=== PATIENT | female | born 1955 | race Caucasian/White ===

== ENCOUNTER → 2020-05-01 16:11 | Outpatient (BNVA) | payer MEDICARE, MEDICAID, SELFPAY | PROVIDERS: PCP Internal Medicine; Visit Provider Family Medicine Adult Medicine | DX: M47.816 Spondylosis without myelopathy or radiculopathy, lumbar region (principal); Z79.891 Long term (current) use of opiate analgesic | CPT/HCPCS: 99213 ==

== ENCOUNTER 2020-06-15 17:54 | Outpatient (REF) | payer MEDICARE, MEDICAID, SELFPAY ==
[2020-06-15 18:35] LABS: Amphetamine Screen Urine Not Detected (Not Detect); Barbiturates, Urine Not Detected (Not Detect); Benzodiazepines Screen Urine Not Detected (Not Detect); Cannabinoid Screen Urine Not Detected (Not Detect); Cocaine Screen Urine Not Detected (Not Detect); Opiate Screen Urine POSITIVE (Not Detect); Phencyclidine Screen Urine Not Detected (Not Detect)
== END 2020-06-15 17:55 | disposition home or self-care (01) ==
LOC: HO.LNP 17:54
PROVIDERS: Visit Provider Internal Medicine
DX: M47.816 Spondylosis without myelopathy or radiculopathy, lumbar region (principal)
CPT/HCPCS: 80307

== ENCOUNTER 2021-01-25 15:38 | Outpatient (REF) | payer MEDICARE, MEDICAID, SELFPAY ==
--- NOTE | ~2021-01-25 | XR_ITS ---
EXAMINATION: XR KNEE, RIGHT CLINICAL INFORMATION: Right knee pain. COMPARISON: Knee radiographs dated 01/23/2020. TECHNIQUE: AP and lateral views of the right knee. FINDINGS: Moderate medial and lateral compartment joint space narrowing. Prominent tricompartmental marginal osteophytes. No osseous erosion. No fracture or dislocation. Npion-uk-oszjsbck joint effusion. Atherosclerotic calcifications. XR/XR knee RT 2V IMPRESSION: Moderate tricompartmental osteoarthritis, unchanged. Zhebk-cl-gpkukajh joint effusion.
== END 2021-01-25 15:39 | disposition home or self-care (01) ==
LOC: HO.XRAY 15:38
PROVIDERS: PCP Internal Medicine; Visit Provider Internal Medicine
DX: M25.561 Pain in right knee (principal)
CPT/HCPCS: 73560

== ENCOUNTER → 2021-02-11 13:34 | Outpatient (BNVA) | payer MEDICARE, MEDICAID, SELFPAY | PROVIDERS: Visit Provider Orthopaedic Surgery | DX: M17.11 Unilateral primary osteoarthritis, right knee (principal) | CPT/HCPCS: 99212 ==

== ENCOUNTER 2021-02-25 14:17 | Outpatient (REF) | payer MEDICARE, MEDICAID, SELFPAY ==
[2021-02-25 14:43] LABS: MANUAL DIFF FLAG NO
[2021-02-25 14:56] LABS: Basophils Percent Auto 0.3 % (0-2); Eosinophils Absolute Auto 0.1 X10*3/uL (0.0-0.4); Eosinophils Percent Auto 0.8 % (0-4); Hematocrit 46.5 % (37-47); Hemoglobin 14.8 g/dl (12.0-16.0); Imm Gran Abs Auto 0.04 X10*3/uL (0.00-0.03); Imm Gran Pct Auto 0.4 % (0.0-0.4); Lymphocytes Absolute Auto 3.1 X10*3/uL (1.2-4.9); Lymphocytes Percent Auto 28.2 % (20-40); Mean Corpuscular HGB Conc 31.8 g/dl (31.0-35.0); Mean Corpuscular Hemoglobin 28.3 pg (27.0-33.0); Mean Corpuscular Volume 88.9 fL (80-98); Mean Platelet Volume 9.3 fL (9.4-12.3); Monocytes Absolute Auto 0.5 X10*3/uL (0.1-1.2); Monocytes Percent Auto 4.2 % (2-11); Neutrophils Absolute Auto 7.2 X10*3/uL (2.0-8.3); Neutrophils Percent Auto 66.1 % (45-73); Platelet Count 409 X10*3/uL (160-400); Red Blood Count 5.23 X10*6/uL (4.20-5.50); Red Cell Distribution Width 12.5 % (11.0-16.0); White Blood Count 10.9 X10*3/uL (4.8-10.8)
[2021-02-25 15:03] LABS: Estimated Average Glucose 186 mg/dL; Hemoglobin A1c % 8.1 %
[2021-02-25 15:16] LABS: Alanine Aminotransferase 14 U/L (0-31); Albumin Level 4.1 g/dL (3.5-5.0); Alkaline Phosphatase 70 U/L (39-117); Anion Gap 17 (12-20); Aspartate Amino Transferase 15 U/L (5-31); Bilirubin Total 0.3 mg/dL (0.0-1.0); Blood Urea Nitrogen 29 mg/dL (9-16); Calcium 9.5 mg/dL (8.4-10.2); Carbon Dioxide 23 mmol/L (22-29); Chloride 103 mmol/L (96-108); Cholesterol 228 mg/dL; Estimated Glomerular Filt Rate 31; Glucose Random 164 mg/dL (60-115); HDL Cholesterol 39 mg/dL; LDL Cholesterol Calculated 153 mg/dl; Potassium 4.2 mmol/L (3.3-5.1); Sodium 139 mmol/L (135-145); Total Protein 7.2 g/dL (6.5-8.0); Triglycerides 180 mg/dL
[2021-02-25 15:48] LABS: Folate 11.4 ng/mL (> or = 4.0); Vitamin B12 279 pg/mL (200-900)
[2021-02-25 18:26] LABS: Creatinine Urine 119.73 mg/dL; Microalbum/Creatinine Ratio Ur 109.4 ug/mg cr
== END 2021-02-25 14:18 | disposition home or self-care (01) ==
LOC: HO.LAB 14:17
PROVIDERS: PCP Internal Medicine; Visit Provider Internal Medicine
DX: I10 Essential (primary) hypertension (principal); E11.65 Type 2 diabetes mellitus with hyperglycemia; I25.10 Atherosclerotic heart disease of native coronary artery without angina pectoris; E78.00 Pure hypercholesterolemia, unspecified
CPT/HCPCS: 36415; 80053; 80061; 82043; 82306; 82607; 82746; 83036; 84439; 84443; 85025

== ENCOUNTER 2021-04-10 15:39 | Outpatient (REF) | payer MEDICARE, MEDICAID, SELFPAY ==
--- NOTE | ~2021-04-10 | US_ITS ---
EXAMINATION: US RETROPERITONEAL LIMITED (RENAL ONLY), BILATERAL CLINICAL INFORMATION: Disorder of kidney and ureter, unspecified. COMPARISON: None TECHNIQUE: Real-time imaging of the kidneys. FINDINGS: RIGHT KIDNEY: 9.6 x 3.4 x 3.8 cm (SAG x AP x TRV). The kidney is normal in size, contour, and echogenicity. Renal cortical thickness is normal. No calculi or focal parenchymal solid lesions. At the upper pole, a 1.0 cm maximal diameter simple cyst is seen. At the lower pole, a 0.9 x 0.7 x 0.8 cm hypoechoic, mildly complex (Bosniak 2F) cyst is seen. This shows no mural nodularity associated color Doppler flow. No hydronephrosis. LEFT KIDNEY: 10.0 x 5.6 x 4.6 cm (SAG x AP x TRV). The kidney is normal in size, contour, and echogenicity. Renal cortical thickness is normal. No calculi or focal parenchymal solid lesions. At the upper pole, a 2.2 cm in maximal diameter anechoic, simple cyst is seen. No hydronephrosis. US/US renal BI IMPRESSION: 1. At the lower pole of the right kidney, a 0.9 cm mildly complex (Bosniak 2F) cyst is seen. As a precaution, a repeat renal ultrasound examination is recommended in 6 months to ensure stability of this finding. 2. There are further simple bilateral renal cysts incidentally noted. 3. No renal calculus or hydronephrosis is seen bilaterally.
== END 2021-04-10 15:40 | disposition home or self-care (01) ==
LOC: HO.US 15:39
PROVIDERS: Visit Provider Internal Medicine
DX: N28.9 Disorder of kidney and ureter, unspecified (principal)
CPT/HCPCS: 76775

== ENCOUNTER 2021-05-24 14:09 | Outpatient (REF) | payer MEDICARE, MEDICAID, SELFPAY ==
--- NOTE | 2021-05-24 15:10 | MHC.AU.HAS ---
Hearing Aid Evaluation Date of Visit: 05/24/21 Historical Information: Description of Hearing: Right: Normal sloping to moderately-severe sensorineural hearing loss Left: Normal sloping to moderate and rising to mild sensorineural hearing loss Summary: Patient was seen at [facility]. She received medical clearance for hearing aids from Dr. Wallis. She has not previously worn amplification. Hearing aid options were discussed. Hearing Aid Prescription: Based on the individual?s shared listening needs, communication environments, dexterity, desire for connectivity, and personal preferences, the following prescription for amplification has been made: Right ear: Money Examiner: ReSound Model: ONE ROSEY 7 Rechargeable Battery Size: Rechargeable Color: Gold Boiler Tube Reamer: 2M Left ear: Money Examiner: ReSound Model: ONE ROSEY 7 Rechargeable Battery Size: Rechargeable Color: Gold Boiler Tube Reamer: 1M Action Taken/Action Needed: Hearing Instrument Fitting to be scheduled when materials arrive Primary Diagnosis: H90.3 Bilateral Sensorineural Hearing Loss Signature: Provider: Argentina Rosario, CCC-A
== END 2021-05-24 14:10 | disposition home or self-care (01) ==
LOC: HO.HAP 14:09
PROVIDERS: Visit Provider Internal Medicine
DX: Z46.1 Encounter for fitting and adjustment of hearing aid (principal); H90.3 Sensorineural hearing loss, bilateral
CPT/HCPCS: 92591

== ENCOUNTER 2021-06-26 09:33 | Outpatient (REF) | payer MEDICARE, MEDICAID, SELFPAY | END 2021-06-26 09:34 | disposition home or self-care (01) | LOC: HO.HAP 09:33 | PROVIDERS: PCP Internal Medicine; Visit Provider Otolaryngology | DX: Z46.1 Encounter for fitting and adjustment of hearing aid (principal); H90.3 Sensorineural hearing loss, bilateral; N28.9 Disorder of kidney and ureter, unspecified; E78.00 Pure hypercholesterolemia, unspecified; E11.65 Type 2 diabetes mellitus with hyperglycemia | CPT/HCPCS: 36415; 80053; 80061; 83036; 85025; V5011; V5020; V5160; V5261 ==

== ENCOUNTER 2021-06-26 11:01 | Outpatient (REF) | payer MEDICARE, MEDICAID, SELFPAY ==
[2021-06-26 11:20] LABS: MANUAL DIFF FLAG NO
[2021-06-26 11:49] LABS: Basophils Percent Auto 0.3 % (0-2); Eosinophils Absolute Auto 0.2 X10*3/uL (0.0-0.4); Eosinophils Percent Auto 2.3 % (0-4); Hematocrit 44.3 % (37.0-47.0); Hemoglobin 14.1 g/dl (12.0-16.0); Imm Gran Abs Auto 0.02 X10*3/uL (0.00-0.03); Imm Gran Pct Auto 0.2 % (0.0-0.4); Lymphocytes Absolute Auto 3.7 X10*3/uL (1.2-4.9); Lymphocytes Percent Auto 42.3 % (20-40); Mean Corpuscular HGB Conc 31.8 g/dl (31.0-35.0); Mean Corpuscular Hemoglobin 29.3 pg (27.0-33.0); Mean Corpuscular Volume 91.9 fL (80.0-98.0); Mean Platelet Volume 9.2 fL (9.4-12.3); Monocytes Absolute Auto 0.6 X10*3/uL (0.1-1.2); Monocytes Percent Auto 6.4 % (2-11); Neutrophils Absolute Auto 4.3 x10*3/uL (2.0-8.3); Neutrophils Percent Auto 48.5 % (45-73); Platelet Count 346 X10*3/uL (160-400); Red Blood Count 4.82 X10*6/uL (4.20-5.50); Red Cell Distribution Width 12.6 % (11.0-16.0); White Blood Count 8.8 X10*3/uL (4.8-10.8)
[2021-06-26 12:21] LABS: Alanine Aminotransferase 12 U/L (0-31); Albumin Level 4.1 g/dL (3.5-5.0); Alkaline Phosphatase 66 U/L (39-117); Anion Gap 12 (12-20); Aspartate Amino Transferase 15 U/L (5-31); Bilirubin Total 0.3 mg/dL (0.0-1.0); Blood Urea Nitrogen 20 mg/dL (9-16); Calcium 9.7 mg/dL (8.4-10.2); Carbon Dioxide 27 mmol/L (22-29); Chloride 102 mmol/L (96-108); Cholesterol 231 mg/dL; Estimated Glomerular Filt Rate 38; Glucose Random 180 mg/dL (60-115); HDL Cholesterol 38 mg/dL; LDL Cholesterol Calculated 136 mg/dl; Potassium 4.5 mmol/L (3.3-5.1); Sodium 136 mmol/L (135-145); Total Protein 6.9 g/dL (6.5-8.0); Triglycerides 289 mg/dL
[2021-06-26 14:07] LABS: Estimated Average Glucose 174 mg/dL; Hemoglobin A1c % 7.7 %
== END 2021-06-26 11:02 | disposition home or self-care (01) ==
LOC: HO.LAB 11:01
PROVIDERS: PCP Internal Medicine; Visit Provider Internal Medicine
DX: N28.9 Disorder of kidney and ureter, unspecified (principal); E11.65 Type 2 diabetes mellitus with hyperglycemia; E78.00 Pure hypercholesterolemia, unspecified
CPT/HCPCS: 36415; 80053; 80061; 83036; 85025

== ENCOUNTER 2021-07-19 15:10 | Outpatient (REF) | payer MEDICARE, MEDICAID, SELFPAY ==
--- NOTE | ~2021-07-19 | MM_ITS ---
EXAMINATION: MM SCREENING DIGITAL BREAST TOMOSYNTHESIS, BILATERAL CLINICAL INFORMATION: Screening. Asymptomatic. The lifetime risk of breast cancer based on the Tyrer-Cuzick Model is 4%. COMPARISON: Mammography: 03/12/2020, 10/11/2018; outside mammography 12/11/2015 ([facility]) TECHNIQUE: Digital breast tomosynthesis is performed in both the craniocaudal and mediolateral oblique views along with computer-aided detection (CAD). Synthesized 2D images are generated from the tomosynthesis. FINDINGS: There are scattered areas of fibroglandular density (ACR BI-RADS breast composition Category b). There are no significant masses, abnormal calcifications, or other abnormalities. Parenchymal pattern is similar to prior studies. There is no developing density or architectural abnormality. The axilla are unremarkable. MM/MM tomosynthesis screening BI IMPRESSION: No mammographic evidence of malignancy. ASSESSMENT: BI-RADS 1: Negative RECOMMENDATION: Routine annual mammography screening. This patient's information was entered into a reminder system with a target due date for their next mammogram.
== END 2021-07-19 15:11 | disposition home or self-care (01) ==
LOC: HO.MAMMO 15:10
PROVIDERS: PCP Internal Medicine; Visit Provider Internal Medicine
DX: Z12.31 Encounter for screening mammogram for malignant neoplasm of breast (principal)
CPT/HCPCS: 77063; 77067

== ENCOUNTER 2021-08-12 12:28 | Outpatient (REF) | payer MEDICARE, MEDICAID, SELFPAY | END 2021-08-12 12:29 | disposition home or self-care (01) | LOC: HO.HOSX 12:28 | PROVIDERS: Visit Provider Orthopaedic Surgery | DX: Z13.89 Encounter for screening for other disorder (principal) ==

== ENCOUNTER 2021-12-17 16:42 | Outpatient (REF) | payer OTHER, MEDICAID, SELFPAY ==
--- NOTE | ~2021-12-17 | US_ITS ---
EXAMINATION: US RETROPERITONEAL LIMITED (RENAL ONLY) CLINICAL INFORMATION: Cyst of kidney, acquired. COMPARISON: Renal ultrasound 04/10/2021 TECHNIQUE: Real-time imaging of the kidneys. FINDINGS: RIGHT KIDNEY: 11.0 x 3.7 x 3.8 cm (SAG x AP x TRV). The kidney is normal in size, contour, and echogenicity. Renal cortical thickness is normal. There are 2 cysts measuring 7 x 9 mm in the upper pole and 9 mm lower pole. The lower pole cyst has internal echoes that are difficult to clear and may represent a complex cyst. This is similar to previous exam. No renal stone or mass. No hydronephrosis. LEFT KIDNEY: 10.4 x 4.1 x 4.4 cm (SAG x AP x TRV). The kidney is normal in size, contour, and echogenicity. Renal cortical thickness is normal. There is a 2.4 x 2.7 x 2.2 cm cyst in the upper pole. No renal stone or mass. No hydronephrosis. US/US renal BI IMPRESSION: Stable small bilateral renal cysts from March 2021 exam..
== END 2021-12-17 16:43 | disposition home or self-care (01) ==
LOC: HO.US 16:42
PROVIDERS: Visit Provider Internal Medicine
DX: N28.1 Cyst of kidney, acquired (principal)
CPT/HCPCS: 76775

== ENCOUNTER → 2022-01-30 11:26 | Outpatient (BNVA) | payer OTHER, MEDICAID, SELFPAY | PROVIDERS: PCP Internal Medicine; Visit Provider Dietitian, Registered | DX: E11.65 Type 2 diabetes mellitus with hyperglycemia (principal) | CPT/HCPCS: 97803 ==

== ENCOUNTER 2022-02-01 16:39 | Emergency (ER) | payer OTHER, MEDICAID, SELFPAY ==
[2022-02-01 17:27] VITALS: BP 128/74; BP 150/80; PULSE 100; PULSE 90; RESP 16; TEMP 35.2; O2SAT 95; BMI 20.6
== END 2022-02-01 20:10 | disposition left against medical advice (07) ==
PROVIDERS: Emergency Provider Emergency Medicine
DX: S09.90XA Unspecified injury of head, initial encounter (principal); W01.0XXA Fall on same level from slipping, tripping and stumbling without subsequent striking against object, initial encounter; Y93.89 Activity, other specified; Y92.019 Unspecified place in single-family (private) house as the place of occurrence of the external cause; Y99.9 Unspecified external cause status
CPT/HCPCS: 99281

== ENCOUNTER → 2022-02-04 13:23 | Outpatient (BNVA) | payer OTHER, MEDICAID, SELFPAY | PROVIDERS: PCP Internal Medicine; Visit Provider Dietitian, Registered | DX: E11.65 Type 2 diabetes mellitus with hyperglycemia (principal) | CPT/HCPCS: 97803 ==

== ENCOUNTER 2022-02-19 15:43 | Outpatient (REF) | payer SELFPAY ==
--- NOTE | 2022-02-19 17:01 | MHC.AU.HFU ---
Hearing Instrument Follow-Up- Binaural Date of Visit: 02/19/22 Right Ear: Traffic Line Painter: ReSound Model: ONE ROSEY 7 ROSEY-R Serial Number: [id number] Repair Warranty: 07/10/2024 Loss and Damage Warranty: 07/10/2024: Battery Size: Rechargeable Color: Gold Photolithographer: 2M Type of Dome: Small open Type of Wax Guard: Resound triangle wax guards Dispensed By: [facility] Date of Fittin06/26/2021 Left Ear: Traffic Line Painter: ReSound Model: ONE ROSEY 7 ROSEY-R Serial Number: [id number] Repair Warranty: 07/10/2024 Loss and Damage Warranty: 07/10/2024 Battery Size: Rechargeable Color: Gold Photolithographer: 2M Type of Dome: Small open Type of Wax Guard: Resound triangle wax guards Dispensed By: [facility] Date of Fittin06/26/2021 Follow-Up Summary: Lost aids as they constantly fell out of ears. Placed L&D order with Linda at [facility] Ref# [id number]. Took impressions for encased canal lock receivers. Recommendations: Schedule 45 minute appointment with Lin as patient has reduced cognition Diagnosis Code(s): Primary Diagnosis: H61.22 Impacted Cerumen, Left Ear Secondary Diagnosis: SNHL Signature: Provider: Cindy Amaral, [facility]
== END 2022-02-19 15:44 | disposition home or self-care (01) ==
LOC: HO.HAP 15:43
PROVIDERS: Visit Provider Internal Medicine
DX: Z46.1 Encounter for fitting and adjustment of hearing aid (principal); H61.22 Impacted cerumen, left ear
CPT/HCPCS: 92700

== ENCOUNTER → 2022-02-26 13:58 | Outpatient (REF) | payer OTHER, MEDICAID, SELFPAY ==
--- NOTE | 2022-02-26 14:03 | CA_ITS ---
Transthoracic Echocardiogram Patient (Last, First, Middle): Lena Bill H Gender: Female Date of : 1955 Age: 66 Procedure Date: 02/26/2022 Procedure Type: Transthoracic Echocardiogram Location: OP Height: 167.64 cm Weight: 59.42 kg BSA: 1.67 m2 Heart Rate: 81 bpm BP: 120 / 70 mmHg Compensation Analyst: SB Referring MD: Vero Medellin MD Safety Glass Installer: Scott Cooper MD Symptoms: I20.8 STABLE ANGINA Study Quality: Adequate apical images/no parasternal window ECG Rhythm: Sinus Conclusions: - 1. Low normal LV systolic function with impaired relaxation filling pattern next 2. Mildly dilated left atrium 3. Severely thickened posterior mitral leaflet with immobility, may suggest prior repair with possible mild mitral stenosis 4. No gross pericardial effusion 5. Technically limited study as there were very poor parasternal windows Findings Left Ventricle Normal left ventricular cavity size. There is normal left ventricular wall thickness. The left ventricular systolic function is low normal. The visually estimated ejection fraction is between 50-55%. Spectral Doppler is indicative of an impaired relaxation filling pattern. Right Ventricle Normal right ventricular cavity size and systolic function. Atria The left atrium is mildly dilated. Interatrial shunt cannot be excluded. The right atrium is normal in size. Aortic Valve The aortic valve was not well visualized. There is no aortic valve stenosis. There is no aortic valve regurgitation. Mitral Valve There is mild anterior and severe posterior mitral leaflet thickening. The posterior mitral leaflet is immobile. the posterior mitral leaflet is heavily thickened and a mobile and could represent prior repair, although there is no mention on the prior history about the same. Mild mitral stenosis cannot be entirely ruled out Pulmonic Valve The pulmonic valve was not well visualized. Tricuspid Valve Likely normal tricuspid valve structure and function. Tricuspid regurgitation envelope is inadequate for calculation of right ventricular systolic pressure. Great Vessels The aorta was not well visualized. The pulmonary artery was not well visualized. Venous The inferior vena cava is normal in size and collapses greater than 50% with inspiration. Pericardium/Pleural There is no evidence of pericardial effusion. Prior Study Comparison No prior study available for comparison. Measurements 2D Linear Measurements LVIDd: 3.67 3.9-5.3/4.2-5.9 cm LVIDd Index: 2.20 2.4-3.2/2.2-3.1 cm/m2 LVIDs: 2.65 2.0-3.6 cm LVOT Diam: 1.70 3.0+(-)1.3 cm 2D Systolic Function EF 4C: 53.40 >55% EF 2C: 49.00 >55% EF BiP: 53.20 >55% Mitral Valve MV VTI: 0.35 MV Pk Yadiel: 1.67 MV Mn Yadiel: 1.00 MV Pk Grad: 11.00 MV Mn Grad: 5.00 MV Pk E: 1.10 MV PK A: 1.48 MV Decel Time: 267.00 E/A: 0.70 E'Lateral: 4.68 E'Medial: 4.24 E/E' Med: 25.90 E/E' Lat: 23.50 PHT: 78.00 MVA PHT: 2.82 MVA Continuity: 1.07 Decel [place]: 4.10 Aortic Valve AoV Pk Yadiel: 1.41 AoV Mn Yadiel: 1.00 AoV VTI: 0.26 AoV Pk Grad: 8.00 Aov Mn Grad: 5.00 ROB Cont.VTI: 1.46 LVOT LVOT Pk Yadiel: 0.98 LVOT Mn Yadiel: 0.68 LVOT VTI: 0.17 LVOT Pk Grad: 4.00 LVOT Mn Grad: 2.00 LVOT Diam: 1.70 LVOT Area: 2.27 Diastolic Function MV Pk E: 1.10 MV Pk A: 1.48 E/A: 0.70 E'Medial: 4.24 E/E' Med: 25.90 E' Laterial: 4.68 E/E' Lat: 23.50 Right Ventricle TAPSE (mm): 18.40 TVS' Yadiel: 11.30 Tricuspid Valve RA Press: 3.00 Great Vessels Aorta Sinus of Valsalva: 3.10 2.0-3.5 cm Updated in Other Vendor System with Status of Final Scott Cooper MD electronically signed on 02/26/2022 3:19:43 PM with status of Final
== END ==
LOC: HO.CARD 13:58
PROVIDERS: Visit Provider Internal Medicine Cardiovascular Disease
DX: I20.8 Other forms of angina pectoris (principal)
CPT/HCPCS: 93306

== ENCOUNTER 2022-04-17 10:33 | Outpatient (REF) | payer SELFPAY ==
--- NOTE | 2022-04-18 07:30 | MHC.AU.HFU ---
Hearing Instrument Follow-Up- Binaural Date of Visit: 04/17/22 Right Ear: Service And Repair Supervisor: ReSound Model: ONE ROSEY 7 ROSEY-R Serial Number: [id number] replaced with [id number] Repair Warranty: 07/10/2024 Loss and Damage Warranty: Used 02/2022 Battery Size: Rechargeable Color: Gold Bulk Driver: 2M Type of Dome: Small open Type of Wax Guard: Resound triangle wax guards Dispensed By: [facility] Date of Fittin06/26/2021 Left Ear: Service And Repair Supervisor: ReSound Model: ONE ROSEY 7 ROSEY-R Serial Number: [id number] replaced with [id number] Repair Warranty: 07/10/2024 Loss and Damage Warranty: Used 02/2022 Battery Size: Rechargeable Color: Gold Bulk Driver: 2M Type of Dome: Small open Type of Wax Guard: Resound triangle wax guards Dispensed By: [facility] Date of Fittin06/26/2021 Follow-Up Summary: Lena is accompanied by son. Fitting of the L&D aids (no credit collections manager was sent with aids) with new encased canal lock earmolds was attempted today. Experienced difficulty initially with updating software. Sean from [facility] helped (although not able to come on remotely due to [facility] either firewall or low internet connection). Had connection problems with the aids following download of updated software. Once connections made, the left aid would not complete calibration. Tried DEMO aids and able to complete all actions. Transferred to [facility] in Customer Care to file a complaint case. All paperwork is in the chart. Returning both L&D aids for credit with encased molds. Remaking the encased molds as the secondary set up man length is short (changing to size 2 MP for both aids). Recommendations:Patient will be contacted when materials have arrived. Recommendations (Other): Will be receiving 2 new aids, 2 encased canal lock earmolds with #2 MP receivers, 1 credit collections manager. PLEASE GIVE ALL MATERIALS TO [facility] WHEN RECEIVED TO CONFIRM AND PROGRAM. Signature:Provider: Cindy Amaral, CCC-A
== END 2022-04-17 10:34 | disposition home or self-care (01) ==
LOC: HO.HAP 10:33
PROVIDERS: Visit Provider Internal Medicine
DX: Z13.89 Encounter for screening for other disorder (principal)

== ENCOUNTER 2022-05-29 10:29 | Outpatient (REF) | payer OTHER, MEDICAID, SELFPAY ==
--- NOTE | 2022-05-29 15:07 | MHC.AU.HFU ---
Hearing Instrument Follow-Up- Binaural Date of Visit: 05/29/22 Right Ear: Buttermaker Helper: ReSound One 7 ROSEY-R Color: Gold (Original #[id number] fit 06/26/21) replaced with #[id number] 05/29/22) Repair Warranty: 07/10/2024 Loss and Damage Warranty: Used 02/2022 Service Plan: Battery Size: Rechargeable Color: Gold Senior Linux Systems Engineer: 2M Type of Mold: Encased Micro Mold #[id number] remake/repair warranty 09/18/2022 Type of Wax Guard: Resound triangle wax guards Dispensed By: [facility] Date of Fittin06/26/2021 Left Ear: Buttermaker Helper: ReSound One 7 ROSEY-R Color: Gold (Original #[id number] fit 06/26/21) replaced 05/29/2022 with #[id number] Repair Warranty: 07/10/2024 Loss and Damage Warranty: Used 02/2022 Battery Size: Rechargeable Color: Gold Senior Linux Systems Engineer: 2M Type of Mold: Encased Micro Mold #[id number] remake/repair warranty 09/18/2022 Type of Wax Guard: Resound triangle wax guards Dispensed By: [facility] Date of Fittin06/26/2021 Follow-Up Summary: Patient is accompanied by her son today to fit the replacement L&D aids and manager cleaning and the new encased micro molds. Patient has not used hearing aids for at least the past 6-7 months. Ran calibration and performed Real Ear for a new fit at 100% target as previous settings for aids were with domes. Made adjustments to better meet target. Aids all automatic per patient request. Practiced insertion and how to place in manager cleaning several times while in office. Patient gets easily frustrated and wants to move fast, but she can easily insert if she takes her time and takes the aids out of the manager cleaning holding the aid where it meets the director news. Son also practiced insertion. Downloaded ReSound Polo and paired aids to cell phone. Reviewed polo with son. Recommendations: Patient did not make a follow-up appointment today. Advised her to schedule appointment if any concerns. Diagnosis Code(s):Primary Diagnosis: H90.3 Bilateral Sensorineural Hearing Loss Services Performed: Earmold (Quantity): 2 STOLL Non-Quantity Charges: HAFOC-REFIT [place] ECON: Real Ear/Functional testing Signature:Provider: Angel Amaral, CCC-A
== END 2022-05-29 10:30 | disposition home or self-care (01) ==
LOC: HO.HAP 10:29
PROVIDERS: Visit Provider Internal Medicine
DX: Z46.1 Encounter for fitting and adjustment of hearing aid (principal); H90.3 Sensorineural hearing loss, bilateral
CPT/HCPCS: V5011; V5020; V5264

== ENCOUNTER 2022-07-30 15:29 | Outpatient (REF) | payer MEDICARE, MEDICAID, SELFPAY ==
--- NOTE | ~2022-07-30 | MM_ITS ---
EXAMINATION: MM SCREENING DIGITAL BREAST TOMOSYNTHESIS, BILATERAL CLINICAL INFORMATION: Screening. Asymptomatic. The lifetime risk of breast cancer based on the Tyrer-Cuzick Model is 4.0%. COMPARISON: Mammography: July 19, 2021 and studies dating back to December 11, 2015 TECHNIQUE: Digital breast tomosynthesis is performed in both the craniocaudal and mediolateral oblique views along with computer-aided detection (CAD). Synthesized 2D images are generated from the tomosynthesis. FINDINGS: The breasts are heterogeneously dense, which may obscure small masses (ACR BI-RADS breast composition Category c). There are no significant masses, abnormal calcifications, or other abnormalities. MM/MM tomosynthesis screening BI IMPRESSION: No significant changes from prior exam. ASSESSMENT: BI-RADS 1: Negative RECOMMENDATION: Routine annual mammography screening. This patient's information was entered into a reminder system with a target due date for their next mammogram.
== END 2022-07-30 15:30 | disposition home or self-care (01) ==
LOC: HO.MAMMO 15:29
PROVIDERS: Visit Provider Internal Medicine
DX: Z12.31 Encounter for screening mammogram for malignant neoplasm of breast (principal)
CPT/HCPCS: 77063; 77067

== ENCOUNTER 2022-11-25 09:25 | Outpatient (REF) | payer MEDICARE, MEDICAID, SELFPAY ==
[2022-11-25 11:10] LABS: MANUAL DIFF FLAG NO
[2022-11-25 11:37] LABS: Basophils Absolute Auto 0.1 X10*3/uL (0.0-0.2); Basophils Percent Auto 0.6 % (0-2); Eosinophils Absolute Auto 0.1 X10*3/uL (0.0-0.4); Eosinophils Percent Auto 0.8 % (0-4); Hematocrit 45.6 % (37.0-47.0); Hemoglobin 14.7 g/dl (12.0-16.0); Imm Gran Abs Auto 0.02 X10*3/uL (0.00-0.03); Imm Gran Pct Auto 0.2 % (0.0-0.4); Lymphocytes Absolute Auto 2.8 X10*3/uL (1.2-4.9); Lymphocytes Percent Auto 29.6 % (20-40); Mean Corpuscular HGB Conc 32.2 g/dl (31.0-35.0); Mean Corpuscular Hemoglobin 29.3 pg (27.0-33.0); Mean Corpuscular Volume 90.8 fL (80.0-98.0); Mean Platelet Volume 10.2 fL (9.4-12.3); Monocytes Absolute Auto 0.4 X10*3/uL (0.1-1.2); Monocytes Percent Auto 3.8 % (2-11); Neutrophils Absolute Auto 6.2 x10*3/uL (2.0-8.3); Platelet Count 320 X10*3/uL (160-400); Red Blood Count 5.02 X10*6/uL (4.20-5.50); Red Cell Distribution Width 12.1 % (11.0-16.0); White Blood Count 9.6 X10*3/uL (4.8-10.8)
[2022-11-25 12:14] LABS: Alanine Aminotransferase 11 U/L (0-31); Albumin Level 4.1 g/dL (3.5-5.0); Alkaline Phosphatase 69 U/L (39-117); Anion Gap 13 (12-20); Aspartate Amino Transferase 16 U/L (5-31); Bilirubin Total 0.6 mg/dL (0.0-1.0); Blood Urea Nitrogen 16 mg/dL (9-16); Calcium 9.6 mg/dL (8.4-10.2); Carbon Dioxide 29 mmol/L (22-29); Chloride 101 mmol/L (96-108); Cholesterol 202 mg/dL; Estimated Glomerular Filt Rate 40; Glucose Random 165 mg/dL (60-115); HDL Cholesterol 38 mg/dL; LDL Cholesterol Calculated 130 mg/dl; Potassium 4.1 mmol/L (3.3-5.1); Sodium 139 mmol/L (135-145); Total Protein 6.9 g/dL (6.5-8.0); Triglycerides 173 mg/dL
[2022-11-25 12:22] LABS: Folate > 20.0 ng/mL (> or = 4.0); Vitamin B12 289 pg/mL (200-900)
== END 2022-11-25 09:26 | disposition home or self-care (01) ==
LOC: HO.HMGCLDS 09:25
PROVIDERS: PCP Internal Medicine; Visit Provider Internal Medicine
DX: E11.65 Type 2 diabetes mellitus with hyperglycemia (principal); E78.00 Pure hypercholesterolemia, unspecified
CPT/HCPCS: 36415; 80053; 80061; 82607; 82746; 84439; 84443; 85025

== ENCOUNTER 2023-01-22 16:30 | Outpatient (AMB) | payer MEDICARE, MEDICAID, SELFPAY ==
--- NOTE | 2023-01-22 16:57 | MHC.PC.OV ---
Intake Visit Reasons: med review Allergies No Known Allergies Allergy (Verified 01/22/23 16:57) Tobacco use date assessed: 11/21/22 Fall risk assessment: No Falls in past year Last assessed Fall Risk: 01/22/23 Dental Screening Did you have a dental visit in the last 12 months?: No Did you have a dental problem in the last 6 months where you did not have access to dental care?: No Was dental information given to patient?: Patient has dentist HPI med review HPI Details 67-year-old female smoker with diabetes mellitus hypertension coronary artery disease hypercholesterolemia anxiety disorder with a history of lumbar wedge compression fracture on narcotic pain medication. Patient seen on a monthly basis for refill on the narcotic pain medication this time was late and so had to go with Telehealth. Patient follows up with Nephrology having diabetic nephropathy(from history has peripheral vascular disease with iliac artery stents and right 1st toe amputation, carotid disease with a history of carotid endarterectomy left, her last cardiac cath August 2019 reveals coronary artery disease concern about renal artery stenosis patient was advised workup from nephrology point of view. Had a long discussion with the patient on the need to do changes discussion about diabetes mellitus coronary artery disease tobacco abuse peripheral vascular disease on the patient to need to get this under control and stopping smoking. [facility] Medical History (Updated 07/25/22 @ 17:55 by Diandra Grady MD) Anxiety and depression Attention deficit disorder Carotid stenosis Coronary artery disease Diabetic nephropathy Hypercholesterolemia Hypertension Lumbar spondylosis Osteoarthritis Pulmonary nodule Right radial fracture Type 2 diabetes mellitus with hyperglycemia Surgical History Amputation toe H/O endarterectomy Family History Father Stroke Mother Pancreatic cancer Son Sleep apnea Social History Housing: House Alcohol intake: current Alcohol intake frequency: holidays/special occasions only Alcohol type: wine Patient Tobacco Use Status: Former Tobacco user Tobacco use type: Cigarette Cigarettes Per Day: 5 e-Cigarette/Vaping Use: Never Used Second Hand Smoke Exposure: Yes service: No Current occupational status: unemployed Cognitive needs: No Hearing needs: No Vision needs: Yes Questionnaire PHQ-9 Over the last 2 weeks, how often have you been bothered by any of the following problems? 1. Little interest or pleasure in doing things: more than half the days 2. Feeling down, depressed, or hopeless: not at all 3. Trouble falling or staying asleep, or sleeping too much: more than half the days 4. Feeling tired or having little energy: more than half the days 5. Poor appetite or overeating: more than half the days (poor appetite) 6. Feeling bad about yourself - or that you are a failure or have let yourself or your family down: more than half the days 7. Trouble concentrating on things, such as reading the newspaper or watching television: not at all 8. Moving or speaking so slowly that other people could have noticed. Or the opposite - being so fidgety or restless that you have been moving around a lot more than usual: not at all 9. Thoughts that you would be better off or of hurting yourself in some way: not at all Total score: 10 Depression Screening Interpretation: Positive Source: Developed by Drs. George Andrew, Marion Vasques, Milad Goncalves and colleagues, with an educational jaylen from [employer]. Thrive Questionnaire Date Thrive assessed: 07/22/22 AUDIT C Alcohol Use Questionnaire (AUDIT-C) 1. How often do you have a drink containing alcohol?: Monthly or less 2. How many drinks containing alcohol do you have on a typical day when you are drinking?: 1 or 2 3. How often do you have six or more drinks on one occasion?: Never Total Score: 1 PATRIC-7 AMB Questionnaire PATRIC-7 Date PATRIC - 7 assessed: 07/22/22 Source: Developed by Drs. George Andrew, Milad Prasad and colleagues, with an educational jaylen from [employer]. Physical exam (Primary Care) Tobacco/Smoking Status: Tobacco use Status Tobacco use date assessed 11/21/22 01/22/23 16:59 Patient Tobacco Use Status Former Tobacco user 01/22/23 16:59 Tobacco use type Cigarette 01/22/23 16:59 e-Cigarette/Vaping Use Never Used 01/22/23 16:59 PHQ-9: PHQ-9 Score PHQ-9: Total score 01/22/23 16:59 Depression Screening Interpretation: Positive Thrive Assessment: Date of Thrive Assessment Date Thrive assessed 07/22/22 01/22/23 16:59 Telehealth Telehealth Location of provider rendering services: practice address Location of patient: address on file Patient Identification confirmed using: Name, : Yes Telehealth method: voice only (Android//[phone]) Patient verbally consented to treatment: Yes Patient verbally consented to billing insurance company: Yes Patient informed of any privacy concerns related to visit: Yes Minutes spent on Phone/Video with Pt.: 25 Assessment and Plan Assessment & Plan (1) Wedge compression fracture of lumbar vertebra: Comment: May 2022 MR L1 and L2 Code(s): S32.000A - Wedge compression fracture of unspecified lumbar vertebra, initial encounter for closed fracture Plan: Narcotic pain meds: Is being prescribed with the understanding that these medications are potentially addictive and should be used only when absolutely necessary and must always be secured. Any remaining pills should be safely disposed off appropriately. Patient is advised that narcotics can impaired judgment and one should not drive or operate heavy machinery while taking these medications. Never share these medications with anybody and do not leave them unattended. They will not be replaced under any circumstances. (2) Tobacco abuse: Code(s): Z72.0 - Tobacco use Plan: Strongly advised to stop! (3) Type 2 diabetes mellitus with hyperglycemia: Code(s): E11.65 - Type 2 diabetes mellitus with hyperglycemia Qualifiers: Diabetes mellitus fpc insulin use: without termination clerk use Qualified Code(s): E11.65 - Type 2 diabetes mellitus with hyperglycemia Plan: Decrease the amount of carbohydrate intake, pasta, bread, rice and potatoes are all sugar and that is aside from all the sweet stuff, remember that fruits are good but they are Sweet also. Hemoglobin A1c goal of less than 7.0 (4) Hypertension: Code(s): I10 - Essential (primary) hypertension Qualifiers: Hypertension type: essential hypertension Qualified Code(s): I10 - Essential (primary) hypertension Plan: Continue with blood pressure medication. Decrease salt intake and exercise (5) Coronary artery disease: Code(s): I25.10 - Atherosclerotic heart disease of [place] coronary artery without angina pectoris Qualifiers: Coronary Disease-Associated Artery/Lesion type: [place] artery [place] vs. transplanted heart: [place] heart Associated angina: without angina Qualified Code(s): I25.10 - Atherosclerotic heart disease of [place] coronary artery without angina pectoris Plan: Control the cholesterol, weight, blood pressure, diabetes (6) Hypercholesterolemia: Code(s): E78.00 - Pure hypercholesterolemia, unspecified Plan: Avoid fried foods, chicken skin, eggs, butter margarine, pastries and meat. Be it pork or beef they have a lot of cholesterol LDL goal of less than 70 and triglyceride of less than 150 reminding also about blood work that needs to be done to see if the cholesterol has come down Coding Level of Care Code Tele Est Pt Level 4 (09867) Diagnoses Wedge compression fracture of lumbar vertebra S32.000A Tobacco abuse Z72.0 Type 2 diabetes mellitus with hyperglycemia E11.65 Diabetes mellitus fpc insulin use: without fpc use Hypertension I10 Hypertension type: essential hypertension Coronary artery disease I25.10 Coronary Disease-Associated Artery/Lesion type: [place] artery [place] vs. transplanted heart: [place] heart Associated angina: without angina Hypercholesterolemia E78.00
== END 2023-01-22 17:59 | disposition home or self-care (01) ==
LOC: HO.HMGH 16:30
PROVIDERS: PCP Internal Medicine; Visit Provider Internal Medicine
DX: S32.000A Wedge compression fracture of unspecified lumbar vertebra, initial encounter for closed fracture (principal); Z72.0 Tobacco use; E11.65 Type 2 diabetes mellitus with hyperglycemia; I10 Essential (primary) hypertension; I25.10 Atherosclerotic heart disease of native coronary artery without angina pectoris; E78.00 Pure hypercholesterolemia, unspecified
CPT/HCPCS: 99443

== ENCOUNTER 2023-02-23 17:08 | Outpatient (AMB) | payer MEDICARE, MEDICAID, SELFPAY ==
--- NOTE | 2023-02-23 17:22 | A.OFFPC_ITS ---
Vital Signs 02/23/23 17:23 Height 5 ft 7 in Weight 137 lb BMI 21.5 BP 124/76 Blood Pressure Location Lt brachial Position Sitting Pulse 89 Pulse Source Pulse Oximeter Pulse Oximetry (%) 95 Oxygen Delivery Method Room Air Intake Visit Reasons: med review Allergies No Known Allergies Allergy (Verified 02/23/23 17:24) Medication List - Last Reconciled 02/23/23 by Diandra Grady MD albuterol sulfate 90 mcg/actuation 2 puffs PO Q4H PRN alprazolam Bradley Ashwini Cassidy Q 2 weeks atomoxetine 25 mg PO QAM atomoxetine 60 mg PO QAM blood sugar diagnostic As directed check blood sugars q.day blood-glucose meter As directed chlorthalidone 25 mg PO DAILY cholecalciferol (vitamin D3) 25 mcg PO DAILY cyanocobalamin (vitamin B-12) 1,000 mcg PO DAILY diltiazem HCl 180 mg PO DAILY doxazosin 2 mg PO BEDTIME duloxetine 60 mg PO DAILY duloxetine 30 mg PO DAILY empagliflozin 25 mg PO QAM ezetimibe (Zetia) 10 mg PO DAILY 30 days fluoxetine 20 mg PO DAILY hydroxyzine HCl 25 mg PO DAILY isosorbide mononitrate ER 30 mg PO DAILY lancets As directed liraglutide mg subcut DAILY lisinopril 20 mg PO DAILY loperamide mg PO metformin ER 1,000 mg PO BID mupirocin 2% 1 appl topical 3XW naloxone 4 mg/actuation (Narcan) 4 mg intranasal Q3M PRN nebivolol 2.5 mg PO DAILY nicotine 1 patch transdermal DAILY nicotine (polacrilex) 4 mg buccal Q2H nitroglycerin 0.4 mg PO Every 5 minutes x3; omeprazole mg PO ondansetron 8 mg PO Q12H PRN oxycodone 15 mg PO Q6H PRN 30 days pen needle, diabetic As directed rivaroxaban 2.5 mg PO DAILY rosuvastatin 40 mg PO DAILY 30 days varenicline (Chantix Continuing Month Box) 1 mg PO BID varenicline (Chantix Starting Month Box) PO PER PKG DIR zolpidem 5 mg PO BEDTIME PRN Tobacco use date assessed: 11/21/22 Fall risk assessment: No Falls in past year Last assessed Fall Risk: 02/23/23 Dental Screening Dental Screen Date: 02/23/23 Did you have a dental visit in the last 12 months?: No Did you have a dental problem in the last 6 months where you did not have access to dental care?: No Was dental information given to patient?: No HPI med review HPI Details 67-year-old female smoker with diabetes mellitus hypertension coronary artery disease and hypercholesterolemia last seen in January 2023 for [facility] patient is here for follow-up. Went through the medication to reconcile id patient is not aware of her medications. Had a few and refill done but advised patient to bring in the list of medications so that we can reconcile it. Otherwise patient continues to smoke, diabetes admits to not taking the liver right glute tight every night hence the abnormal diabetes numbers. And as for the cholesterol did remind to get this blood work tested next month but patient states taking cholesterol medication and yet asking for refills on medication now. [facility] Medical History (Updated 02/23/23 @ 17:57 by Diandra Grady MD) Anxiety and depression Attention deficit disorder Carotid stenosis Coronary artery disease Diabetic nephropathy Hypercholesterolemia Hypertension Lumbar spondylosis Osteoarthritis Pulmonary nodule Right radial fracture Type 2 diabetes mellitus with hyperglycemia Surgical History Amputation toe H/O endarterectomy Family History Father Stroke Mother Pancreatic cancer Son Sleep apnea Social History Housing: House Alcohol intake: current Alcohol intake frequency: holidays/special occasions only Alcohol type: wine Patient Tobacco Use Status: Former Tobacco user Tobacco use type: Cigarette Cigarettes Per Day: 5 e-Cigarette/Vaping Use: Never Used Second Hand Smoke Exposure: Yes service: No Current occupational status: unemployed Cognitive needs: No Hearing needs: No Vision needs: Yes Questionnaire PHQ-9 Over the last 2 weeks, how often have you been bothered by any of the following problems? 1. Little interest or pleasure in doing things: more than half the days 2. Feeling down, depressed, or hopeless: not at all 3. Trouble falling or staying asleep, or sleeping too much: more than half the days 4. Feeling tired or having little energy: more than half the days 5. Poor appetite or overeating: more than half the days (poor appetite) 6. Feeling bad about yourself - or that you are a failure or have let yourself or your family down: more than half the days 7. Trouble concentrating on things, such as reading the newspaper or watching television: not at all 8. Moving or speaking so slowly that other people could have noticed. Or the opposite - being so fidgety or restless that you have been moving around a lot more than usual: not at all 9. Thoughts that you would be better off or of hurting yourself in some way: not at all Total score: 10 Depression Screening Interpretation: Positive Source: Developed by Drs. George Andrew, Marion Vasques, Milad Goncalves and colleagues, with an educational jaylen from [employer]. Thrive Questionnaire Date Thrive assessed: 07/22/22 AUDIT C Alcohol Use Questionnaire (AUDIT-C) 1. How often do you have a drink containing alcohol?: Monthly or less 2. How many drinks containing alcohol do you have on a typical day when you are drinking?: 1 or 2 3. How often do you have six or more drinks on one occasion?: Never Total Score: 1 PATRIC-7 AMB Questionnaire PATRIC-7 Date PATRIC - 7 assessed: 07/22/22 Source: Developed by Drs. George Andrew, Marion Vasques, Milad Goncalves and colleagues, with an educational jaylen from [employer]. Physical exam (Primary Care) Vital Signs: Last Vital Signs Pulse 89 02/23/23 17:23 BP 124/76 02/23/23 17:23 Pulse Ox 95 02/23/23 17:23 Oxygen Delivery Method Room Air 02/23/23 17:23 BMI result Body Mass Index 21.5 Tobacco/Smoking Status: Tobacco use Status Tobacco use date assessed 11/21/22 02/23/23 17:25 Patient Tobacco Use Status Former Tobacco user 02/23/23 17:25 Tobacco use type Cigarette 02/23/23 17:25 e-Cigarette/Vaping Use Never Used 02/23/23 17:25 PHQ-9: PHQ-9 Score PHQ-9: Total score 10 02/23/23 17:39 Depression Screening Interpretation: Positive Thrive Assessment: Date of Thrive Assessment Date Thrive assessed 07/22/22 02/23/23 17:25 Const General: alert; No acute distress Eyes Conjunctivae: conjunctivae normal Resp Auscultation: clear to auscultation bilaterally Cardio Rate: regular rate Rhythm: regular rhythm GI Inspection: Yes normal to inspection Extrem General: Yes normal to inspection and No edema Results AMB Hemoglobin A1c AMB Hemoglobin A1c 7.9 % Last Edit by Melvi Rodrigez CMA on 02/23/23 17 :40 Results Reviewed Results Reviewed: Laboratory Last Values Hgb A1c (Clinic) 7.9 % (4.0-6.0) H 02/23/23 17:25 Assessment and Plan Assessment & Plan (1) Type 2 diabetes mellitus with hyperglycemia: Code(s): E11.65 - Type 2 diabetes mellitus with hyperglycemia Qualifiers: Diabetes mellitus intermodal customer service insulin use: without intermodal customer service use Qualified Code(s): E11.65 - Type 2 diabetes mellitus with hyperglycemia Plan: Decrease the amount of carbohydrate intake, pasta, bread, rice and potatoes are all sugar and that is aside from all the sweet stuff, remember that fruits are good but they are Sweet also. Hemoglobin A1c goal of less than 7.0 patient is on Jardiance 25 mg once a day irregular tied every day metformin a 1000 twice a day (2) Hypertension: Code(s): I10 - Essential (primary) hypertension Qualifiers: Hypertension type: essential hypertension Qualified Code(s): I10 - Essential (primary) hypertension Plan: Continue with blood pressure medication. Decrease salt intake and exercise patient is taking never able to 0.5 mg once a day lisinopril 20 mg once a day diltiazem 180 mg once a day chlorthalidone 25 mg once a day (3) Tobacco abuse: Code(s): Z72.0 - Tobacco use Plan: Strongly advised to stop! (4) Hypercholesterolemia: Code(s): E78.00 - Pure hypercholesterolemia, unspecified Plan: Avoid fried foods, chicken skin, eggs, butter margarine, pastries and meat. Be it pork or beef they have a lot of cholesterol patient is taking rosuvastatin 40 mg once a day LDL goal of less than 70 and triglyceride of less than 1 (5) Osteoarthritis: Code(s): M19.90 - Unspecified osteoarthritis, unspecified site Plan: Keep active (6) Coronary artery disease: Code(s): I25.10 - Atherosclerotic heart disease of [place] coronary artery without angina pectoris Qualifiers: Coronary Disease-Associated Artery/Lesion type: [place] artery [place] vs. transplanted heart: [place] heart Associated angina: without angina Qualified Code(s): I25.10 - Atherosclerotic heart disease of [place] coronary artery without angina pectoris Plan: Control the cholesterol, weight, blood pressure, diabetes (7) Generalized anxiety disorder: Comment: Bradley Ashwini seeing Q 2 months Code(s): F41.1 - Generalized anxiety disorder Plan: Continue with present medication and counseling (8) Wedge compression fracture of lumbar vertebra: Comment: May 2022 MR L1 and L2 Code(s): S32.000A - Wedge compression fracture of unspecified lumbar vertebra, initial encounter for closed fracture Plan: Narcotic pain meds: Is being prescribed with the understanding that these medications are potentially addictive and should be used only when absolutely necessary and must always be secured. Any remaining pills should be safely disposed off appropriately. Patient is advised that narcotics can impaired judgment and one should not drive or operate heavy machinery while taking these medications. Never share these medications with anybody and do not leave them unattended. They will not be replaced under any circumstances. (9) Asthma: Code(s): J45.909 - Unspecified asthma, uncomplicated Plan: Inhaler prescription sent. Advised to stop smoking! Orders: Orders AMB Hemoglobin A1c Today Z13.9 - Encounter for screening, unspecified Medications: New albuterol sulfate 90 mcg/actuation 2 puffs PO Q4H PRN 8.5 grams 0RF bronchospasm J45.909 - Unspecified asthma, uncomplicated dulaglutide (Trulicity) 0.75 mg (0.5 mL) subcut QWEEK 2 mL 3RF E11.65 - Type 2 diabetes mellitus with hyperglycemia Changed From omeprazole PO To omeprazole PO DAILY PRN gerd Refilled cyanocobalamin (vitamin B-12) 1,000 mcg PO DAILY 90 caps 2RF oxycodone May partial fill 15 mg PO Q6H 30 days PRN 115 tabs 0RF pain M51.36 - Other intervertebral disc degeneration, lumbar region, S32.000A - Wedge compression fracture of unspecified lumbar vertebra, initial encounter for closed fracture varenicline (Chantix Continuing Month Box) 1 mg PO BID 56 tabs 1RF Z72.0 - Tobacco use rosuvastatin 40 mg PO DAILY 30 days 30 tabs 4RF E78.00 - Pure hypercholesterolemia, unspecified ezetimibe (Zetia) 10 mg PO DAILY 30 days 90 tabs 3RF E78.00 - Pure hypercholesterolemia, unspecified Discontinued rivaroxaban Discontinued Reason: Change Referral Type 2.5 mg PO DAILY varenicline (Chantix Starting Month Box) Discontinued Reason: Change Referral Type PO PER PKG DIR 53 ea 0RF Z72.0 - Tobacco use Coding Level of Care Code Est Pt Level 4 (30012) Diagnoses Type 2 diabetes mellitus with hyperglycemia E11.65 Diabetes mellitus intermodal customer service insulin use: without intermodal customer service use Hypertension I10 Hypertension type: essential hypertension Tobacco abuse Z72.0 Hypercholesterolemia E78.00 Osteoarthritis M19.90 Coronary artery disease I25.10 Coronary Disease-Associated Artery/Lesion type: [place] artery [place] vs. transplanted heart: [place] heart Associated angina: without angina Generalized anxiety disorder F41.1 Wedge compression fracture of lumbar vertebra S32.000A Asthma J45.909
[2023-02-23 17:23] VITALS: BP 124/76; PULSE 89; O2SAT 95; BMI 21.5
== END 2023-02-23 18:08 | disposition home or self-care (01) ==
PROVIDERS: Visit Provider Internal Medicine
DX: E11.65 Type 2 diabetes mellitus with hyperglycemia (principal); I10 Essential (primary) hypertension; Z72.0 Tobacco use; E78.00 Pure hypercholesterolemia, unspecified; M19.90 Unspecified osteoarthritis, unspecified site; I25.10 Atherosclerotic heart disease of native coronary artery without angina pectoris; F41.1 Generalized anxiety disorder; S32.000A Wedge compression fracture of unspecified lumbar vertebra, initial encounter for closed fracture; J45.909 Unspecified asthma, uncomplicated; Z13.9 Encounter for screening, unspecified
CPT/HCPCS: 83036; 99214

== ENCOUNTER 2023-03-26 13:29 | Outpatient (AMB) | payer MEDICARE, MEDICAID, SELFPAY ==
[2023-03-26 13:31] VITALS: BP 112/76; PULSE 114; O2SAT 98; BMI 21.7
--- NOTE | 2023-03-26 13:31 | A.OFFPC_ITS ---
Vital Signs 03/26/23 13:31 Height 5 ft 7 in Weight 138 lb 8 oz BMI 21.7 BP 112/76 Blood Pressure Location Lt brachial Position Sitting Pulse 114 H Pulse Source Pulse Oximeter Pulse Oximetry (%) 98 Oxygen Delivery Method Room Air Intake Visit Reasons: med review Food Service Assistant Required: No Accompanied by: Self / Same As Patient Allergies No Known Allergies Allergy (Verified 03/26/23 13:31) Tobacco use date assessed: 03/26/23 Fall risk assessment: No Falls in past year Last assessed Fall Risk: 03/26/23 Dental Screening Dental Screen Date: 03/26/23 Did you have a dental visit in the last 12 months?: No Did you have a dental problem in the last 6 months where you did not have access to dental care?: No Was dental information given to patient?: No HPI med review HPI Details [age] Year old female with multiple medical problems diabetes mellitus hypertension hypercholesterolemia coronary artery disease lumbar vertebral wedge compression fracture with a narcotic pain medication coming in for follow-up. Last seen in February 2023. Patient is here for follow-up. still smok,ing 1-2 a day. blood work still had cholesterol . 11/2022 knows to do blood work [facility] Medical History (Updated 02/23/23 @ 17:57 by Diandra Grady MD) Osteoarthritis Hypercholesterolemia Coronary artery disease Attention deficit disorder Right radial fracture Pulmonary nodule Diabetic nephropathy Carotid stenosis Anxiety and depression Hypertension Type 2 diabetes mellitus with hyperglycemia Lumbar spondylosis Surgical History H/O endarterectomy Amputation toe Family History Father Stroke Mother Pancreatic cancer Son Sleep apnea Social History Housing: House Alcohol intake: current Alcohol intake frequency: holidays/special occasions only Alcohol type: wine Patient Tobacco Use Status: Former Tobacco user Tobacco use type: Cigarette Cigarettes Per Day: 5 e-Cigarette/Vaping Use: Never Used Second Hand Smoke Exposure: Yes service: No Current occupational status: unemployed Cognitive needs: No Hearing needs: No Vision needs: Yes Questionnaire PHQ-9 Over the last 2 weeks, how often have you been bothered by any of the following problems? 1. Little interest or pleasure in doing things: more than half the days 2. Feeling down, depressed, or hopeless: not at all 3. Trouble falling or staying asleep, or sleeping too much: more than half the days 4. Feeling tired or having little energy: more than half the days 5. Poor appetite or overeating: more than half the days (poor appetite) 6. Feeling bad about yourself - or that you are a failure or have let yourself or your family down: more than half the days 7. Trouble concentrating on things, such as reading the newspaper or watching te levision: not at all 8. Moving or speaking so slowly that other people could have noticed. Or the opposite - being so fidgety or restless that you have been moving around a lot more than usual: not at all 9. Thoughts that you would be better off or of hurting yourself in some way: not at all Total score: 10 Depression Screening Interpretation: Positive Source: Developed by Drs. George Andrew, Marion Vasques, Milad Goncalves and colleagues, with an educational jaylen from [employer]. Thrive Questionnaire Date Thrive assessed: 03/26/23 I am a: Patient What is your living situation today?: I have a steady place to live Within the past 12 months, did the food you bought not last and you didn't have the money to get more?: Never true Within the past 12 months, did you worry whether your food would run out before you got money to buy more?: Never true Do you have trouble paying for medicines?: No Do you have trouble getting transportation to medical appointments?: No Do you have trouble paying your heating and electricity bill?: No Do you have trouble taking care of your child, family member or friend?: No Do you have trouble with day-to-day activities such as bathing, preparing meals, shopping, managing finances, etc.?: No Are you currently unemployed and looking for a job?: No Are you interested in more education?: No Please select the resources that you would like help with: None Currently or been in a relationship where the following occur: no concerns reported AUDIT C Alcohol Use Questionnaire (AUDIT-C) 1. How often do you have a drink containing alcohol?: Monthly or less 2. How many drinks containing alcohol do you have on a typical day when you are drinking?: 1 or 2 3. How often do you have six or more drinks on one occasion?: Never Total Score: 1 PATRIC-7 AMB Questionnaire PATRIC-7 Date PATRIC - 7 assessed: 03/26/23 Feeling nervous, anxious, or on edge: 0 = Not at all Not being able to stop or control worryin = Not at all Worrying too much about different things: 0 = Not at all Trouble relaxin = Not at all Being so restless that it is hard to sit still: 0 = Not at all Becoming easily annoyed or irritable: 0 = Not at all Feeling afraid as if something awful might happen: 0 = Not at all Total PATRIC-7 score (0-4 normal; 5-9 mild; 10-14 moderate; 15-21 severe): 0 Source: Developed by Drs. George Andrew, Marion Vasques, Milad Goncalves and colleagues, with an educational jaylen from [employer]. Physical exam (Primary Care) Vital Signs: Last Vital Signs Pulse 114 H 03/26/23 13:31 BP 112/76 03/26/23 13:31 Pulse Ox 98 03/26/23 13:31 Oxygen Delivery Method Room Air 03/26/23 13:31 BMI result Body Mass Index 21.7 Tobacco/Smoking Status: Tobacco use Status Tobacco use date assessed 03/26/23 03/26/23 13:34 Patient Tobacco Use Status Former Tobacco user 03/26/23 13:34 Tobacco use type Cigarette 03/26/23 13:34 e-Cigarette/Vaping Use Never Used 03/26/23 13:34 PHQ-9: PHQ-9 Score PHQ-9: Total score 10 03/26/23 13:34 Depression Screening Interpretation: Positive Thrive Assessment: Date of Thrive Assessment Date Thrive assessed 03/26/23 03/26/23 13:34 Currently or been in a relationship where the following occur: no concerns reported Const General: alert; No acute distress Eyes Conjunctivae: conjunctivae normal Resp Auscultation: clear to auscultation bilaterally Cardio Rate: regular rate Rhythm: regular rhythm GI Inspection: Yes normal to inspection Extrem General: Yes normal to inspection and No edema Assessment and Plan Assessment & Plan (1) Type 2 diabetes mellitus with hyperglycemia: Code(s): E11.65 - Type 2 diabetes mellitus with hyperglycemia Qualifiers: Diabetes mellitus ocean transportation intermediary insulin use: without [place] [facility] use Qualified Code(s): E11.65 - Type 2 diabetes mellitus with hyperglycemia Plan: Decrease the amount of carbohydrate intake, pasta, bread, rice and potatoes are all sugar and that is aside from all the sweet stuff, remember that fruits are good but they are Sweet also. Hemoglobin A1c goal of less than 7.0 [place] blood test is 7.9 (2) Tobacco abuse: Code(s): Z72.0 - Tobacco use Plan: Strongly advised to stop! (3) Coronary artery disease: Code(s): I25.10 - Atherosclerotic heart disease of [place] coronary artery without angina pectoris Qualifiers: Coronary Disease-Associated Artery/Lesion type: [place] artery [place] vs. transplanted heart: [place] heart Associated angina: without angina Qualified Code(s): I25.10 - Atherosclerotic heart disease of [place] coronary artery without angina pectoris Plan: Control the cholesterol, weight, blood pressure, diabetes (4) Hypertension: Code(s): I10 - Essential (primary) hypertension Qualifiers: Hypertension type: essential hypertension Qualified Code(s): I10 - Essential (primary) hypertension Plan: Continue with blood pressure medication. Decrease salt intake and exercise (5) Wedge compression fracture of lumbar vertebra: Comment: May 2022 MR L1 and L2 Code(s): S32.000A - Wedge compression fracture of unspecified lumbar vertebra, initial encounter for closed fracture Plan: Narcotic pain meds: Is being prescribed with the understanding that these medications are potentially addictive and should be used only when absolutely necessary and must always be secured. Any remaining pills should be safely disposed off appropriately. Patient is advised that narcotics can impaired judgment and one should not drive or operate heavy machinery while taking these medications. Never share these medications with anybody and do not leave them unattended. They will not be replaced under any circumstances. Coding Level of Care Code Est Pt Level 4 (24988) Diagnoses Type 2 diabetes mellitus with hyperglycemia, without long-term current use of insulin E11.65 Diabetes mellitus ocean transportation intermediary insulin use: without [place] [facility] use Tobacco abuse Z72.0 Coronary artery disease involving [place] coronary artery of [place] heart without angina pectoris I25.10 Coronary Disease-Associated Artery/Lesion type: [place] artery [place] vs. transplanted heart: [place] heart Associated angina: without angina Essential hypertension I10 Hypertension type: essential hypertension Wedge compression fracture of lumbar vertebra S32.000A
== END 2023-03-26 17:06 | disposition home or self-care (01) ==
PROVIDERS: PCP Internal Medicine; Visit Provider Internal Medicine
DX: E11.65 Type 2 diabetes mellitus with hyperglycemia (principal); I10 Essential (primary) hypertension; S32.000A Wedge compression fracture of unspecified lumbar vertebra, initial encounter for closed fracture; Z72.0 Tobacco use; I25.10 Atherosclerotic heart disease of native coronary artery without angina pectoris
CPT/HCPCS: 99214

== ENCOUNTER 2023-04-24 16:00 | Outpatient (AMB) | payer MEDICARE, MEDICAID, SELFPAY ==
[2023-04-24 16:03] VITALS: BP 130/60; PULSE 80; O2SAT 97; BMI 22.1
--- NOTE | 2023-04-24 16:03 | A.OFFPC_ITS ---
Vital Signs 04/24/23 16:03 Height 5 ft 7 in Weight 141 lb BMI 22.1 BP 130/60 Blood Pressure Location Lt brachial Position Sitting Pulse 80 Pulse Source Pulse Oximeter Pulse Oximetry (%) 97 Oxygen Delivery Method Room Air Intake Visit Reasons: med review Allergies No Known Allergies Allergy (Verified 04/24/23 16:04) Tobacco use date assessed: 03/26/23 Fall risk assessment: No Falls in past year Last assessed Fall Risk: 04/24/23 Dental Screening Dental Screen Date: 04/24/23 Did you have a dental visit in the last 12 months?: Yes Did you have a dental problem in the last 6 months where you did not have access to dental care?: No Was dental information given to patient?: Patient has dentist HPI med review HPI Details 68-year-old female smoker with an uncont rolled diabetes mellitus coronary artery disease hypertension wedge compression fracture of the lumbar vertebrae a on narcotic pain medication coming in for follow-up. Last seen in 03/26/2023. [facility] Medical History Osteoarthritis Hypercholesterolemia Coronary artery disease Attention deficit disorder Right radial fracture Pulmonary nodule Diabetic nephropathy Carotid stenosis Anxiety and depression Hypertension Type 2 diabetes mellitus with hyperglycemia Lumbar spondylosis Surgical History H/O endarterectomy Amputation toe Family History Father Stroke Mother Pancreatic cancer Son Sleep apnea Social History Housing: House Alcohol intake: current Alcohol intake frequency: holidays/special occasions only Alcohol type: wine Patient Tobacco Use Status: Former Tobacco user Tobacco use type: Cigarette Cigarettes Per Day: 5 e-Cigarette/Vaping Use: Never Used Second Hand Smoke Exposure: Yes service: No Current occupational status: unemployed Cognitive needs: No Hearing needs: No Vision needs: Yes Questionnaire PHQ-9 Over the last 2 weeks, how often have you been bothered by any of the following problems? 1. Little interest or pleasure in doing things: more than half the days 2. Feeling down, depressed, or hopeless: not at all 3. Trouble falling or staying asleep, or sleeping too much: more than half the days 4. Feeling tired or having little energy: more than half the days 5. Poor appetite or overeating: more than half the days (poor appetite) 6. Feeling bad about yourself - or that you are a failure or have let yourself o r your family down: more than half the days 7. Trouble concentrating on things, such as reading the newspaper or watching television: not at all 8. Moving or speaking so slowly that other people could have noticed. Or the opposite - being so fidgety or restless that you have been moving around a lot more than usual: not at all 9. Thoughts that you would be better off or of hurting yourself in some way: not at all Total score: 10 Depression Screening Interpretation: Positive Depression Screening Done: Yes Source: Developed by Drs. George Andrew, Marion Vasques, Milad Goncalves and colleagues, with an educational jaylen from [employer]. Thrive Questionnaire Date Thrive assessed: 03/26/23 AUDIT C Alcohol Use Questionnaire (AUDIT-C) 1. How often do you have a drink containing alcohol?: Monthly or less 2. How many drinks containing alcohol do you have on a typical day when you are drinking?: 1 or 2 3. How often do you have six or more drinks on one occasion?: Never Total Score: 1 PATRIC-7 AMB Questionnaire PATRIC-7 Date PATRIC - 7 assessed: 03/26/23 Source: Developed by Drs. George Andrew, Marion Vasques, Milad Goncalves and colleagues, with an educational jaylen from [employer]. Physical exam (Primary Care) Vital Signs: Last Vital Signs Pulse 80 04/24/23 16:03 BP 130/60 04/24/23 16:03 Pulse Ox 97 04/24/23 16:03 Oxygen Delivery Method Room Air 04/24/23 16:03 BMI result Body Mass Index 22.1 Tobacco/Smoking Status: Tobacco use Status Tobacco use date assessed 03/26/23 04/24/23 16:08 Patient Tobacco Use Status Former Tobacco user 04/24/23 16:08 Tobacco use type Cigarette 04/24/23 16:08 e-Cigarette/Vaping Use Never Used 04/24/23 16:08 PHQ-9: PHQ-9 Score PHQ-9: Total score 10 04/24/23 16:08 Depression Screening Interpretation: Positive Thrive Assessment: Date of Thrive Assessment Date Thrive assessed 03/26/23 04/24/23 16:08 Const General: alert; No acute distress Eyes Conjunctivae: conjunctivae normal Resp Auscultation: clear to auscultation bilaterally Cardio Rate: regular rate Rhythm: regular rhythm GI Inspection: Yes normal to inspection Extrem General: Yes normal to inspection and No edema Assessment and Plan Assessment & Plan (1) Wedge compression fracture of lumbar vertebra: Comment: May 2022 MR L1 and L2 Code(s): S32.000A - Wedge compression fracture of unspecified lumbar vertebra, initial encounter for closed fracture Plan: Narcotic pain meds: Is being prescribed with the understanding that these medications are potentially addictive and should be used only when absolutely necessary and must always be secured. Any remaining pills should be safely disposed off appropriately. Patient is advised that narcotics can impaired judgment and one should not drive or operate heavy machinery while taking these medications. Never share these medications with anybody and do not leave them unattended. They will not be replaced under any circumstances. (2) Tobacco abuse: Comment: stopped smoking 04/22/2023 Code(s): Z72.0 - Tobacco use Plan: Patient is strongly advised to stop smoking! states stopped 2 days ago (3) Coronary artery disease: Code(s): I25.10 - Atherosclerotic heart disease of [place] coronary artery without angina pectoris Qualifiers: Coronary Disease-Associated Artery/Lesion type: [place] artery [place] vs. transplanted heart: [place] heart Associated angina: without angina Qualified Code(s): I25.10 - Atherosclerotic heart disease of [place] coronary artery without angina pectoris Plan: Control the cholesterol, weight, blood pressure, diabetes Medications: Refilled oxycodone May partial fill 15 mg PO Q6H 30 days PRN 115 tabs 0RF pain M51.36 - Other intervertebral disc degeneration, lumbar region, S32.000A - Wedge compression fracture of unspecified lumbar vertebra, initial encounter for closed fracture Coding Level of Care Code Tele New Pt Level 5 (20790) Diagnoses Wedge compression fracture of lumbar vertebra S32.000A Tobacco abuse Z72.0 Coronary artery disease involving [place] coronary artery of [place] heart without angina pectoris I25.10 Coronary Disease-Associated Artery/Lesion type: [place] artery [place] vs. transplanted heart: [place] heart Associated angina: without angina
== END 2023-04-24 17:26 | disposition home or self-care (01) ==
PROVIDERS: PCP Internal Medicine; Visit Provider Internal Medicine
DX: S32.000A Wedge compression fracture of unspecified lumbar vertebra, initial encounter for closed fracture (principal); Z72.0 Tobacco use; I25.10 Atherosclerotic heart disease of native coronary artery without angina pectoris
CPT/HCPCS: 99214

== ENCOUNTER 2023-06-25 16:06 | Outpatient (AMB) | payer MEDICARE, MEDICAID, SELFPAY ==
--- NOTE | 2023-06-25 16:07 | A.OFFPC_ITS ---
Vital Signs 06/25/23 16:08 Weight 137 lb BP 147/78 H Blood Pressure Location Lt brachial Position Sitting Intake Visit Reasons: med review [employer] Required: No Allergies No Known Allergies Allergy (Verified 06/25/23 16:08) Medication List - Last Reconciled 06/25/23 by Diandra Grady MD albuterol sulfate 90 mcg/actuation 2 puffs PO Q4H PRN alprazolam Bradley Benjamin Q 2 weeks aspirin (Adult Low Dose Aspirin) 81 mg PO DAILY atomoxetine 25 mg PO QAM atomoxetine 60 mg PO QAM blood sugar diagnostic As directed check blood sugars q.day blood-glucose meter As directed chlorthalidone 25 mg PO DAILY cholecalciferol (vitamin D3) 25 mcg PO DAILY cyanocobalamin (vitamin B-12) 1,000 mcg PO DAILY doxazosin 2 mg PO BEDTIME dulaglutide (Trulicity) 0.75 mg (0.5 mL) subcut QWEEK duloxetine 60 mg PO DAILY duloxetine 30 mg PO DAILY empagliflozin 25 mg PO QAM ezetimibe (Zetia) 10 mg PO DAILY 30 days hydroxyzine HCl 25 mg PO DAILY isosorbide mononitrate ER 30 mg PO DAILY lancets As directed lisinopril 20 mg PO DAILY loperamide mg PO metformin ER 1,000 mg PO BID mupirocin 2% 1 appl topical 3XW naloxone 4 mg/actuation (Narcan) 4 mg intranasal Q3M PRN nebivolol 2.5 mg PO DAILY nicotine 1 patch transdermal DAILY nicotine (polacrilex) 4 mg buccal Q2H nitroglycerin 0.4 mg PO Every 5 minutes x3; omeprazole mg PO DAILY PRN ondansetron 8 mg PO Q12H PRN oxycodone 15 mg PO Q6H PRN 30 days pen needle, diabetic As directed rosuvastatin 40 mg PO DAILY 30 days varenicline (Chantix Continuing Month Box) 1 mg PO BID zolpidem 5 mg PO BEDTIME PRN Tobacco use date assessed: 03/26/23 Fall risk assessment: No Falls in past year Last assessed Fall Risk: 06/25/23 Dental Screening Dental Screen Date: 06/25/23 Did you have a dental visit in the last 12 months?: Yes Did you have a dental problem in the last 6 months where you did not have access to dental care?: No Was dental information given to patient?: Patient has dentist HPI med review HPI Details 68-year-old female with a history of debbie betes mellitus chronic kidney disease stage 3 hypertension history of right toe amputation, iliacs artery stenosis coming in for follow-up. Patient has vertebral fracture and on narcotic pain medication. Patient follows up with endocrinology has not started Trulicity continuing with Jardiance and metformin advised to follow-up with ophthalmology [facility] Medical History Osteoarthritis Hypercholesterolemia Coronary artery disease Attention deficit disorder Right radial fracture Pulmonary nodule Diabetic nephropathy Carotid stenosis Anxiety and depression Hypertension Type 2 diabetes mellitus with hyperglycemia Lumbar spondylosis Surgical History H/O endarterectomy Amputation toe Family History Father Stroke Mother Pancreatic cancer Son Sleep apnea Social History Housing: House Alcohol intake: current Alcohol intake frequency: holidays/special occasions only Alcohol type: wine Patient Tobacco Use Status: Former Tobacco user Tobacco use type: Cigarette Cigarettes Per Day: 5 e-Cigarette/Vaping Use: Never Used Second Hand Smoke Exposure: Yes service: No Current occupational status: unemployed Cognitive needs: No Hearing needs: No Vision needs: Yes Questionnaire Thrive Questionnaire Date Thrive assessed: 03/26/23 PATRIC-7 AMB Questionnaire PATRIC-7 Date PATRIC - 7 assessed: 03/26/23 Source: Developed by Drs. George Andrew, Marion Vasques, Milad Goncalves and colleagues, with an educational jaylen from [facility]. Physical exam (Primary Care) Vital Signs: Last Vital Signs BP 147/78 H 06/25/23 16:08 Tobacco/Smoking Status: Tobacco use Status Tobacco use date assessed 03/26/23 06/25/23 16:10 Patient Tobacco Use Status Former Tobacco user 06/25/23 16:10 Tobacco use type Cigarette 06/25/23 16:10 e-Cigarette/Vaping Use Never Used 06/25/23 16:10 Thrive Assessment: Date of Thrive Assessment Date Thrive assessed 03/26/23 06/25/23 16:10 Telehealth Telehealth Location of provider rendering services: practice address Location of patient: address on file Patient Identification confirmed using: Name, : Yes Telehealth method: voice only (Android ) Patient verbally consented to treatment: Yes Patient verbally consented to billing insurance company: Yes Patient informed of any privacy concerns related to visit: Yes Minutes spent on Phone/Video with Pt.: 25 Assessment and Plan Assessment & Plan (1) Type 2 diabetes mellitus with hyperglycemia: Code(s): E11.65 - Type 2 diabetes mellitus with hyperglycemia Qualifiers: Diabetes mellitus mcfp insulin use: without termite treater helper use Qualified Code(s): E11.65 - Type 2 diabetes mellitus with hyperglycemia Plan: Decrease the amount of carbohydrate intake, pasta, bread, rice and potatoes are all sugar and that is aside from all the sweet stuff, remember that fruits are good but they are Sweet also. Hemoglobin A1c goal of less than 7.5 preferably better. Patient has been follow-up with endocrinology started on Trulicity on Jardiance and metformin (2) Coronary artery disease: Code(s): I25.10 - Atherosclerotic heart disease of [place] coronary artery without angina pectoris Qualifiers: Coronary Disease-Associated Artery/Lesion type: [place] artery [place] vs. transplanted heart: [place] heart Associated angina: without angina Qualified Code(s): I25.10 - Atherosclerotic heart disease of [place] coronary artery without angina pectoris Plan: Control the cholesterol, weight, blood pressure, diabetes continue with present meds. (3) Wedge compression fracture of lumbar vertebra: Comment: May 2022 MR L1 and L2 Code(s): S32.000A - Wedge compression fracture of unspecified lumbar vertebra, initial encounter for closed fracture Plan: Narcotic pain meds: Is being prescribed with the understanding that these medications are potentially addictive and should be used only when absolutely necessary and must always be secured. Any remaining pills should be safely disposed off appropriately. Patient is advised that narcotics can impaired judgment and one should not drive or operate heavy machinery while taking these medications. Never share these medications with anybody and do not leave them unattended. They will not be replaced under any circumstances. (4) Tobacco abuse: Comment: still smoking 06/2023 Code(s): Z72.0 - Tobacco use Plan: still smoking and not able to stop yet. Medications: New aspirin (Adult Low Dose Aspirin) 81 mg PO DAILY 90 tabs 4RF I25.10 - Atherosclerotic heart disease of [place] coronary artery without angina pectoris Coding Level of Care Code Tele Est Pt Level 4 (42622) Diagnoses Type 2 diabetes mellitus with hyperglycemia, without long-term current use of insulin E11.65 Diabetes mellitus termite treater helper insulin use: without mcfp use Coronary artery disease involving [place] coronary artery of [place] heart without angina pectoris I25.10 Coronary Disease-Associated Artery/Lesion type: [place] artery [place] vs. transplanted heart: [place] heart Associated angina: without angina Wedge compression fracture of lumbar vertebra S32.000A Tobacco abuse Z72.0
[2023-06-25 16:08] VITALS: BP 147/78
== END 2023-06-25 17:14 | disposition home or self-care (01) ==
LOC: HO.HMGH 16:06
PROVIDERS: PCP Internal Medicine; Visit Provider Internal Medicine
DX: E11.65 Type 2 diabetes mellitus with hyperglycemia (principal); I25.10 Atherosclerotic heart disease of native coronary artery without angina pectoris; S32.000A Wedge compression fracture of unspecified lumbar vertebra, initial encounter for closed fracture; Z87.891 Personal history of nicotine dependence
CPT/HCPCS: G2252

== ENCOUNTER 2023-08-12 14:40 | Outpatient (AMB) | payer MEDICARE, MEDICAID, SELFPAY ==
[2023-08-12 14:44] VITALS: BP 140/72; PULSE 94; O2SAT 94; BMI 22.4
--- NOTE | 2023-08-12 14:44 | MHC.PC.OV ---
Vital Signs 08/12/23 14:44 Height 5 ft 7 in Weight 143 lb BMI 22.4 BP 140/72 H Blood Pressure Location Lt brachial Position Sitting Pulse 94 Pulse Source Pulse Oximeter Pulse Oximetry (%) 94 Oxygen Delivery Method Room Air Intake Visit Reasons: Follow Up Intake Note: Patient is here to follow up on Bight Maker Required: No Allergies No Known Allergies Allergy (Verified 08/12/23 14:54) Tobacco use date assessed: 08/12/23 Fall risk assessment: No Falls in past year Last assessed Fall Risk: 08/12/23 Dental Screening Dental Screen Date: 08/12/23 Did you have a dental visit in the last 12 months?: No Did you have a dental problem in the last 6 months where you did not have access to dental care?: No HPI Follow Up HPI Details 68-year-old female smoker with multiple medical problems coronary artery disease diabetes mellitus hypercholesterolemia chronic kidney disease generalized anxiety disorder chronic low back pain coming in for follow-up. Patient continues to smoke and discussed about stopping. States only 1 so far today. Last cholesterol was done in November LDL needs to be less than 100. Will do blood work on November 2023 [facility] Medical History Osteoarthritis Hypercholesterolemia Coronary artery disease Attention deficit disorder Right radial fracture Pulmonary nodule Diabetic nephropathy Carotid stenosis Anxiety and depression Hypertension Type 2 diabetes mellitus with hyperglycemia Lumbar spondylosis Surgical History H/O endarterectomy Amputation toe Family History Father Stroke Mother Pancreatic cancer Son Sleep apnea Social History Housing: House Alcohol intake: current Alcohol intake frequency: holidays/special occasions only Alcohol type: wine Patient Tobacco Use Status: Former Tobacco user Tobacco use type: Cigarette Cigarettes Per Day: 5 e-Cigarette/Vaping Use: Never Used Second Hand Smoke Exposure: Yes service: No Current occupational status: unemployed Cognitive needs: No Hearing needs: No Vision needs: Yes Questionnaire Thrive Questionnaire Date Thrive assessed: 08/12/23 AUDIT C Alcohol Use Questionnaire (AUDIT-C) 1. How often do you have a drink containing alcohol?: Monthly or less 2. How many drinks containing alcohol do you have on a typical day when you are drinking?: 1 or 2 3. How often do you have six or more drinks on one occasion?: Never Total Score: 1 PATRIC-7 AMB Questionnaire PATRIC-7 Date PATRIC - 7 assessed: 08/12/23 Source: Developed by Drs. George Andrew, Marion Vasques, Milad Goncalves and colleagues, with an educational jaylen from [employer]. Physical exam (Primary Care) Vital Signs: Last Vital Signs Pulse 94 08/12/23 14:44 BP 140/72 H 08/12/23 14:44 Pulse Ox 94 08/12/23 14:44 Oxygen Delivery Method Room Air 08/12/23 14:44 BMI result Body Mass Index 22.4 Tobacco/Smoking Status: Tobacco use Status Tobacco use date assessed 08/12/23 08/12/23 14:52 Patient Tobacco Use Status Former Tobacco user 08/12/23 14:46 Tobacco use type Cigarette 08/12/23 14:46 e-Cigarette/Vaping Use Never Used 08/12/23 14:46 Thrive Assessment: Date of Thrive Assessment Date Thrive assessed 08/12/23 08/12/23 14:52 Const General: alert; No acute distress Eyes Conjunctivae: conjunctivae normal Resp Auscultation: clear to auscultation bilaterally Cardio Rate: regular rate Rhythm: regular rhythm GI Inspection: Yes normal to inspection Extrem General: Yes normal to inspection and No edema Results AMB Hemoglobin A1c AMB Hemoglobin A1c 8.9 % Last Edit by EDSON Smith on 08/12/23 15:15 Results Reviewed Results Reviewed: Laboratory Last Values Hgb A1c (Clinic) 8.9 % (4.0-6.0) H 08/12/23 15:04 Assessment and Plan Assessment & Plan (1) Type 2 diabetes mellitus with hyperglycemia: Code(s): E11.65 - Type 2 diabetes mellitus with hyperglycemia Qualifiers: Diabetes mellitus extermination inspector insulin use: without extermination inspector use Qualified Code(s): E11.65 - Type 2 diabetes mellitus with hyperglycemia Plan: Decrease the amount of carbohydrate intake, pasta, bread, rice and potatoes are all sugar and that is aside from all the sweet stuff, remember that fruits are good but they are Sweet also. Hemoglobin A1c goal of less than 7.0. Noted hemoglobin A1c elevated even with Trulicity right now Jardiance metformin. Advised to increase Trulicity (2) Tobacco abuse: Comment: still smoking 06/2023 Code(s): Z72.0 - Tobacco use Plan: Patient is strongly advised to stop smoking. Patient is still smoking! (3) Coronary artery disease: Code(s): I25.10 - Atherosclerotic heart disease of [place] coronary artery without angina pectoris Qualifiers: Associated angina: without angina Coronary Disease-Associated Artery/Lesion type: [place] artery [place] vs. transplanted heart: [place] heart Qualified Code(s): I25.10 - Atherosclerotic heart disease of [place] coronary artery without angina pectoris Plan: Control the cholesterol, weight, blood pressure, diabetes continue with aspirin 81 mg once a day (4) Wedge compression fracture of lumbar vertebra: Comment: May 2022 MR L1 and L2 Code(s): S32.000A - Wedge compression fracture of unspecified lumbar vertebra, initial encounter for closed fracture Plan: Narcotic pain meds: Is being prescribed with the understanding that these medications are potentially addictive and should be used only when absolutely necessary and must always be secured. Any remaining pills should be safely disposed off appropriately. Patient is advised that narcotics can impaired judgment and one should not drive or operate heavy machinery while taking these medications. Never share these medications with anybody and do not leave them unattended. They will not be replaced under any circumstances. (5) Hypercholesterolemia: Code(s): E78.00 - Pure hypercholesterolemia, unspecified Plan: LDL goal of less than 70 and triglyceride of less than 150. Last blood work in November 2022 was still 130. Patient on medication and will need retesting rosuvastatin 40 mg once a day and Zetia 10 mg once a day patient is advised to retest Orders: Orders AMB Hemoglobin A1c Today E11.65 - Type 2 diabetes mellitus with hyperglycemia Coding Level of Care Code Est Pt Level 4 (59829) Diagnoses Type 2 diabetes mellitus with hyperglycemia, without long-term current use of insulin E11.65 Diabetes mellitus senior care insulin use: without senior care use Tobacco abuse Z72.0 Coronary artery disease involving [place] coronary artery of [place] heart without angina pectoris I25.10 Associated angina: without angina Coronary Disease-Associated Artery/Lesion type: [place] artery [place] vs. transplanted heart: [place] heart Wedge compression fracture of lumbar vertebra S32.000A Hypercholesterolemia E78.00
== END 2023-08-12 15:08 | disposition home or self-care (01) ==
PROVIDERS: PCP Internal Medicine; Visit Provider Internal Medicine
DX: E11.65 Type 2 diabetes mellitus with hyperglycemia (principal); Z72.0 Tobacco use; I25.10 Atherosclerotic heart disease of native coronary artery without angina pectoris; S32.000A Wedge compression fracture of unspecified lumbar vertebra, initial encounter for closed fracture; E78.00 Pure hypercholesterolemia, unspecified
CPT/HCPCS: 83036; 99214

== ENCOUNTER 2023-09-17 14:12 | Outpatient (AMB) | payer MEDICARE, MEDICAID, SELFPAY ==
[2023-09-17 14:13] VITALS: BP 130/78; PULSE 99; O2SAT 94; BMI 22.6
--- NOTE | 2023-09-17 14:13 | A.OFFPC_ITS ---
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 Allergies No Known Allergies Allergy (Verified 09/17/23 14:14) Medication List - Last Reconciled 09/17/23 by Diandra Grady MD albuterol sulfate 90 mcg/actuation 2 puffs PO Q4H PRN alprazolam Bradley Benjamin Q 2 weeks aspirin (Adult Low Dose Aspirin) 81 mg PO DAILY atomoxetine 25 mg PO QAM atomoxetine 60 mg PO QAM blood sugar diagnostic As directed check blood sugars q.day blood-glucose meter As directed chlorthalidone 25 mg PO DAILY cholecalciferol (vitamin D3) 25 mcg PO DAILY cyanocobalamin (vitamin B-12) 1,000 mcg PO DAILY doxazosin 2 mg PO BEDTIME dulaglutide 1.5 mg (0.5 mL) subcut QWEEK 30 days duloxetine 60 mg PO DAILY duloxetine 30 mg PO DAILY empagliflozin 25 mg PO QAM ezetimibe (Zetia) 10 mg PO DAILY 30 days hydroxyzine HCl 25 mg PO DAILY isosorbide mononitrate ER 30 mg PO DAILY lancets As directed lisinopril 20 mg PO DAILY loperamide mg PO metformin ER 1,000 mg PO BID mupirocin 2% 1 appl topical 3XW naloxone 4 mg/actuation (Narcan) 4 mg intranasal Q3M PRN nebivolol 2.5 mg PO DAILY nicotine 1 patch transdermal DAILY nicotine (polacrilex) 4 mg buccal Q2H nitroglycerin 0.4 mg PO Every 5 minutes x3; omeprazole mg PO DAILY PRN ondansetron 8 mg PO Q12H PRN oxycodone 15 mg PO Q6H PRN 30 days pen needle, diabetic As directed rosuvastatin 40 mg PO DAILY 30 days varenicline (Chantix Continuing Month Box) 1 mg PO BID zolpidem 5 mg PO BEDTIME PRN Tobacco use date assessed: 09/17/23 Fall risk assessment: No Falls in past year Last assessed Fall Risk: 09/17/23 Dental Screening Dental Screen Date: 09/17/23 HPI Med review HPI Details 68-year-old female smoker with uncontrol led diabetes mellitus coronary artery disease hypercholesterolemia on narcotic pain medication for the lumbar vertebral wedge compression fracture. Comes in for follow-up. Last seen in July 2023. [facility] Medical History Osteoarthritis Hypercholesterolemia Coronary artery disease Attention deficit disorder Right radial fracture Pulmonary nodule Diabetic nephropathy Carotid stenosis Anxiety and depression Hypertension Type 2 diabetes mellitus with hyperglycemia Lumbar spondylosis Surgical History H/O endarterectomy Amputation toe Family History Father Stroke Mother Pancreatic cancer Son Sleep apnea Social History Housing: House Alcohol intake: current Alcohol intake frequency: holidays/special occasions only Alcohol type: wine Patient Tobacco Use Status: Former Tobacco user Tobacco use type: Cigarette Cigarettes Per Day: 5 e-Cigarette/Vaping Use: Never Used Second Hand Smoke Exposure: Yes service: No Current occupational status: unemployed Cognitive needs: No Hearing needs: No Vision needs: Yes Questionnaire Thrive Questionnaire Date Thrive assessed: 08/12/23 AUDIT C Alcohol Use Questionnaire (AUDIT-C) 1. How often do you have a drink containing alcohol?: Monthly or less 2. How many drinks containing alcohol do you have on a typical day when you are drinking?: 1 or 2 3. How often do you have six or more drinks on one occasion?: Never Total Score: 1 PATRIC-7 AMB Questionnaire PATRIC-7 Date PATRIC - 7 assessed: 08/12/23 Source: Developed by Drs. George Andrew, Marion Vasques, Milad Goncalves and colleagues, with an educational jaylen from [employer]. Physical exam (Primary Care) Vital Signs: Last Vital Signs Pulse 99 09/17/23 14:13 BP 130/78 09/17/23 14:13 Pulse Ox 94 09/17/23 14:13 Oxygen Delivery Method Room Air 09/17/23 14:13 BMI result Body Mass Index 22.6 Tobacco/Smoking Status: Tobacco use Status Tobacco use date assessed 09/17/23 09/17/23 14:14 Patient Tobacco Use Status Former Tobacco user 09/17/23 14:14 Tobacco use type Cigarette 09/17/23 14:14 e-Cigarette/Vaping Use Never Used 09/17/23 14:14 Thrive Assessment: Date of Thrive Assessment Date Thrive assessed 08/12/23 09/17/23 14:14 Const General: alert; No acute distress Eyes Conjunctivae: conjunctivae normal Resp Auscultation: clear to auscultation bilaterally Cardio Rate: regular rate Rhythm: regular rhythm GI Inspection: Yes normal to inspection Extrem General: Yes normal to inspection and No edema Assessment and Plan Assessment & Plan (1) Type 2 diabetes mellitus with hyperglycemia: Code(s): E11.65 - Type 2 diabetes mellitus with hyperglycemia Qualifiers: Diabetes mellitus intermodal customer service insulin use: without intermodal customer service use Qualified Code(s): E11.65 - Type 2 diabetes mellitus with hyperglycemia Plan: Decrease the amount of carbohydrate intake, pasta, bread, rice and potatoes are all sugar and that is aside from all the sweet stuff, remember that fruits are good but they are Sweet also. Hemoglobin A1c goal of less than 7.0. Patient is on Trulicity 1.5 mg once a week Jardiance 25 mg once a day metformin a 1000 mg twice a day. Had a long discussion with the patient on the need to get this under control patient on the right medication but has to change diet. 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 Knows to stop it. Reminde d about eye exam (2) Hypertension: Code(s): I10 - Essential (primary) hypertension Qualifiers: Hypertension type: essential hypertension Qualified Code(s): I10 - Essential (primary) hypertension Plan: Continue with blood pressure medication. Decrease salt intake and exercise continuing with nebivolol 2.5 mg once a day lisinopril 20 mg once a day chlorthalidone 25 mg once a day (3) Hypercholesterolemia: Code(s): E78.00 - Pure hypercholesterolemia, unspecified Plan: Avoid fried foods, chicken skin, eggs, butter margarine, pastries and meat. Be it pork or beef they have a lot of cholesterol LDL goal of less than 70 and triglyceride of less than 150 on Zetia and rosuvastatin last cholesterol test was done in November and so will be receiving another blood work in a couple of months discussed the guidelines of getting it below 70. (4) Coronary artery disease: Code(s): I25.10 - Atherosclerotic heart disease of [place] coronary artery without angina pectoris Qualifiers: Coronary Disease-Associated Artery/Lesion type: [place] artery [place] vs. transplanted heart: [place] heart Associated angina: without angina Qualified Code(s): I25.10 - Atherosclerotic heart disease of [place] coronary artery without angina pectoris Plan: Control the cholesterol, weight, blood pressure, diabetes continue with aspirin 81 mg once a day. Multiple times patient has been advised to stop smoking (5) Tobacco abuse: Comment: still smoking 06/2023 Code(s): Z72.0 - Tobacco use Plan: Patient has been strongly advised to stop smoking. (6) Generalized anxiety disorder: Comment: Bradley Maradiaga seeing Q 2 months Code(s): F41.1 - Generalized anxiety disorder Plan: Continue with counseling and therapy (7) Wedge compression fracture of lumbar vertebra: Comment: May 2022 MR L1 and L2 Code(s): S32.000A - Wedge compression fracture of unspecified lumbar vertebra, initial encounter for closed fracture Plan: Narcotic pain meds: Is being prescribed with the understanding that these medications are potentially addictive and should be used only when absolutely necessary and must always be secured. Any remaining pills should be safely disposed off appropriately. Patient is advised that narcotics can impaired judgment and one should not drive or operate heavy machinery while taking these medications. Never share these medications with anybody and do not leave them unattended. They will not be replaced under any circumstances. Medications: Changed From loperamide PO To loperamide prescribing for Dr. Rincon 2 mg PO TID 180 caps 0RF Coding Level of Care Code Est Pt Level 4 (23074) Diagnoses Type 2 diabetes mellitus with hyperglycemia, without long-term current use of insulin E11.65 Diabetes mellitus intermodal customer service insulin use: without longterm use Essential hypertension I10 Hypertension type: essential hypertension Hypercholesterolemia E78.00 Coronary artery disease involving [place] coronary artery of [place] heart without angina pectoris I25.10 Coronary Disease-Associated Artery/Lesion type: [place] artery [place] vs. transplanted heart: [place] heart Associated angina: without angina Tobacco abuse Z72.0 Generalized anxiety disorder F41.1 Wedge compression fracture of lumbar vertebra S32.000A
== END 2023-09-17 14:44 | disposition home or self-care (01) ==
PROVIDERS: PCP Internal Medicine; Visit Provider Internal Medicine
DX: E11.65 Type 2 diabetes mellitus with hyperglycemia (principal); S32.000A Wedge compression fracture of unspecified lumbar vertebra, initial encounter for closed fracture; I10 Essential (primary) hypertension; E78.00 Pure hypercholesterolemia, unspecified; I25.10 Atherosclerotic heart disease of native coronary artery without angina pectoris; Z72.0 Tobacco use; F41.1 Generalized anxiety disorder
CPT/HCPCS: 99214

== ENCOUNTER 2023-10-21 13:33 | Outpatient (AMB) | payer MEDICARE, MEDICAID, SELFPAY ==
--- NOTE | 2023-10-21 13:34 | MHC.PC.OV ---
Intake Visit Reasons: Follow up Allergies No Known Allergies Allergy (Verified 10/21/23 13:35) Tobacco use date assessed: 09/17/23 Fall risk assessment: No Falls in past year Last assessed Fall Risk: 10/21/23 Dental Screening Dental Screen Date: 10/21/23 Did you have a dental visit in the last 12 months?: No Did you have a dental problem in the last 6 months where you did not have access to dental care?: No Was dental information given to patient?: No HPI Follow up HPI Details 68-year-old female smoker with uncontrolled diabetes mellitus hypertension hypercholesterolemia coronary artery disease and generalized anxiety disorder coming in for refill on the narcotic pain medication. Patient has a history of wedge compression fracture of the lumbar vertebra and on narcotic pain medication. Last spoken with in September 2023 patient comes to [facility]. [facility] Medical History Osteoarthritis Hypercholesterolemia Coronary artery disease Attention deficit disorder Right radial fracture Pulmonary nodule Diabetic nephropathy Carotid stenosis Anxiety and depression Hypertension Type 2 diabetes mellitus with hyperglycemia Lumbar spondylosis Surgical History H/O endarterectomy Amputation toe Family History Father Stroke Mother Pancreatic cancer Son Sleep apnea Social History Housing: House Alcohol intake: current Alcohol intake frequency: holidays/special occasions only Alcohol type: wine Patient Tobacco Use Status: Former Tobacco user Tobacco use type: Cigarette Cigarettes Per Day: 5 e-Cigarette/Vaping Use: Never Used Second Hand Smoke Exposure: Yes service: No Current occupational status: unemployed Cognitive needs: No Hearing needs: No Vision needs: Yes Questionnaire PHQ-9 Over the last 2 weeks, how often have you been bothered by any of the following problems? 1. Little interest or pleasure in doing things: more than half the days 2. Feeling down, depressed, or hopeless: not at all 3. Trouble falling or staying asleep, or sleeping too much: more than half the days 4. Feeling tired or having little energy: more than half the days 5. Poor appetite or overeating: more than half the days (poor appetite) 6. Feeling bad about yourself - or that you are a failure or have let yourself or your family down: more than half the days 7. Trouble concentrating on things, such as reading the newspaper or watching television: not at all 8. Moving or speaking so slowly that other people could have noticed. Or the opposite - being so fidgety or restless that you have been moving around a lot more than usual: not at all 9. Thoughts that you would be better off or of hurting yourself in some way: not at all Total score: 10 Depression Screening Interpretation: Positive Depression Screening Done: Yes Source: Developed by Drs. George Andrew, Marion Vasques, Milad Goncalves and colleagues, with an educational jaylen from [employer]. Thrive Questionnaire Date Thrive assessed: 10/21/23 I am a: Patient What is your living situation today?: I have a steady place to live Within the past 12 months, did the food you bought not last and you didn't have the money to get more?: Never true Within the past 12 months, did you worry whether your food would run out before you got money to buy more?: Never true Do you have trouble paying for medicines?: No Do you have trouble getting transportation to medical appointments?: No Do you have trouble paying your heating and electricity bill?: No Do you have trouble taking care of your child, family member or friend?: No Do you have trouble with day-to-day activities such as bathing, preparing meals, shopping, managing finances, etc.?: No Are you currently unemployed and looking for a job?: No Are you interested in more education?: No Currently or been in a relationship where the following occur: no concerns reported THRIVE Score: 0 AUDIT C Alcohol Use Questionnaire (AUDIT-C) 1. How often do you have a drink containing alcohol?: Monthly or less 2. How many drinks containing alcohol do you have on a typical day when you are drinking?: 1 or 2 3. How often do you have six or more drinks on one occasion?: Never Total Score: 1 PATRIC-7 AMB Questionnaire PATRIC-7 Date PATRIC - 7 assessed: 08/12/23 Source: Developed by Drs. George Andrew, Marion Vasques, Milad Goncalves and colleagues, with an educational jaylen from [employer]. Physical exam (Primary Care) Tobacco/Smoking Status: Tobacco use Status Tobacco use date assessed 09/17/23 10/21/23 13:34 Patient Tobacco Use Status Former Tobacco user 10/21/23 13:34 Tobacco use type Cigarette 10/21/23 13:34 e-Cigarette/Vaping Use Never Used 10/21/23 13:34 PHQ-9: PHQ-9 Score PHQ-9: Total score 10/21/23 13:36 Depression Screening Interpretation: Positive Thrive Assessment: Date of Thrive Assessment Date Thrive assessed 10/21/23 10/21/23 13:36 Currently or been in a relationship where the following occur: no concerns reported Telehealth Telehealth Location of provider rendering services: practice address Location of patient: address on file Patient Identification confirmed using: Name, : Yes Telehealth method: voice only (Android ) Patient verbally consented to treatment: Yes Patient verbally consented to billing insurance company: Yes Patient informed of any privacy concerns related to visit: Yes Minutes spent on Phone/Video with Pt.: 25 Assessment and Plan Assessment & Plan (1) Wedge compression fracture of lumbar vertebra: Comment: May 2022 MR L1 and L2 Code(s): S32.000A - Wedge compression fracture of unspecified lumbar vertebra, initial encounter for closed fracture Plan: Narcotic pain meds: Is being prescribed with the understanding that these medications are potentially addictive and should be used only when absolutely necessary and must always be secured. Any remaining pills should be safely disposed off appropriately. Patient is advised that narcotics can impaired judgment and one should not drive or operate heavy machinery while taking these medications. Never share these medications with anybody and do not leave them unattended. They will not be replaced under any circumstances. (2) Tobacco abuse: Comment: still smoking 06/2023 Code(s): Z72.0 - Tobacco use Plan: Patient is strongly advised to stop smoking! (3) Type 2 diabetes mellitus with hyperglycemia: Code(s): E11.65 - Type 2 diabetes mellitus with hyperglycemia Qualifiers: Diabetes mellitus snf insulin use: without snf use Qualified Code(s): E11.65 - Type 2 diabetes mellitus with hyperglycemia Plan: Decrease the amount of carbohydrate intake, pasta, bread, rice and potatoes are all sugar and that is aside from all the sweet stuff, remember that fruits are good but they are Sweet also. Hemoglobin A1c goal of less than 7.0. Patient on Trulicity 1.5 mg once a week Jardiance 25 mg once a day metformin is a 1000 mg twice a day (4) Coronary artery disease: Code(s): I25.10 - Atherosclerotic heart disease of [place] coronary artery without angina pectoris Qualifiers: Coronary Disease-Associated Artery/Lesion type: [place] artery [place] vs. transplanted heart: [place] heart Associated angina: without angina Qualified Code(s): I25.10 - Atherosclerotic heart disease of [place] coronary artery without angina pectoris Plan: Control the cholesterol, weight, blood pressure, diabetes and continue with aspirin 81 mg once a day (5) Hypercholesterolemia: Code(s): E78.00 - Pure hypercholesterolemia, unspecified Plan: Avoid fried foods, chicken skin, eggs, butter margarine, pastries and meat. Be it pork or beef they have a lot of cholesterol LDL goal of less than 70 and triglyceride of less than 150. Patient is advised to get blood work done (6) Generalized anxiety disorder: Comment: Bradley Maradiaga seeing Q 2 months Code(s): F41.1 - Generalized anxiety disorder Plan: Continue with present medication Orders: Orders Complete Blood Count Auto Diff 1 Month E11.65 - Type 2 diabetes mellitus with hyperglycemia Comprehensive Met. Panel 1 Month E11.65 - Type 2 diabetes mellitus with hyperglycemia Hemoglobin A1c 1 Month E11.65 - Type 2 diabetes mellitus with hyperglycemia Free T4 (Free Thyroxine) 1 Month E11.65 - Type 2 diabetes mellitus with hyperglycemia Creatinine Urine 1 Month E11.65 - Type 2 diabetes mellitus with hyperglycemia Vitamin B12 and Folate 1 Month E11.65 - Type 2 diabetes mellitus with hyperglycemia Thyroid Stimulating Hormone 1 Month E11.65 - Type 2 diabetes mellitus with hyperglycemia Lipid Panel 1 Month E11.65 - Type 2 diabetes mellitus with hyperglycemia, E78.00 - Pure hypercholesterolemia, unspecified Microalbumin, Random (w Creat) 1 Month E11.65 - Type 2 diabetes mellitus with hyperglycemia Vitamin D 25-OH Total 1 Month E11.65 - Type 2 diabetes mellitus with hyperglycemia Medications: Refilled oxycodone May partial fill 15 mg PO Q6H 30 days PRN 115 tabs 0RF pain M51.36 - Other intervertebral disc degeneration, lumbar region, S32.000A - Wedge compression fracture of unspecified lumbar vertebra, initial encounter for closed fracture Coding Level of Care Code Tele Est Pt Level 4 (62255) Diagnoses Wedge compression fracture of lumbar vertebra S32.000A Tobacco abuse Z72.0 Type 2 diabetes mellitus with hyperglycemia, without long-term current use of insulin E11.65 Diabetes mellitus snf insulin use: without roof bolter 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 transplanted heart: [place] heart Associated angina: without angina Hypercholesterolemia E78.00 Generalized anxiety disorder F41.1
== END 2023-10-21 17:23 | disposition home or self-care (01) ==
LOC: HO.HMGH 13:33
PROVIDERS: PCP Internal Medicine; Visit Provider Internal Medicine
DX: S32.000D Wedge compression fracture of unspecified lumbar vertebra, subsequent encounter for fracture with routine healing (principal); F17.210 Nicotine dependence, cigarettes, uncomplicated; E11.65 Type 2 diabetes mellitus with hyperglycemia; I25.10 Atherosclerotic heart disease of native coronary artery without angina pectoris; E78.00 Pure hypercholesterolemia, unspecified; F41.1 Generalized anxiety disorder
CPT/HCPCS: G2252

== ENCOUNTER 2023-11-26 15:33 | Outpatient (AMB) | payer MEDICARE, MEDICAID, SELFPAY ==
--- NOTE | 2023-11-26 15:35 | MHC.PC.OV ---
Vital Signs 11/26/23 15:36 Height 5 ft 7 in Weight 136 lb BMI 21.3 BP 114/62 Blood Pressure Location Lt brachial Position Sitting Pulse 82 Pulse Source Pulse Oximeter Pulse Oximetry (%) 95 Oxygen Delivery Method Room Air Intake Visit Reasons: Med review Golf Cart Repairer Required: No Allergies No Known Allergies Allergy (Verified 11/26/23 15:36) Tobacco use date assessed: 09/17/23 Dental Screening Dental Screen Date: 10/21/23 HPI Med review HPI Details [age] Year old female smoker with multiple medical problems diabetes mellitus, asthma, hypertension coronary artery disease hypercholesterolemia generalized anxiety disorder with a history of wedge compression fracture on narcotic pain medication. Patient is here for follow-up patient states has been smoking 1 cigarette a day only now and on the verge of stopping. Discussed importance of stopping. Patient is needing some refill on her pain medication. Patient states last narcotic pain pill was right before coming to the office and no other drugs are expected in the urine test if we do this today. [facility] Medical History Osteoarthritis Hypercholesterolemia Coronary artery disease Attention deficit disorder Right radial fracture Pulmonary nodule Diabetic nephropathy Carotid stenosis Anxiety and depression Hypertension Type 2 diabetes mellitus with hyperglycemia Lumbar spondylosis Surgical History H/O endarterectomy Amputation toe Family History Father Stroke Mother Pancreatic cancer Son Sleep apnea Social History Housing: House Alcohol intake: current Alcohol intake frequency: holidays/special occasions only Alcohol type: wine Patient Tobacco Use Status: Former Tobacco user Tobacco use type: Cigarette Cigarettes Per Day: 5 e-Cigarette/Vaping Use: Never Used Second Hand Smoke Exposure: Yes service: No Current occupational status: unemployed Cognitive needs: No Hearing needs: No Vision needs: Yes Questionnaire Thrive Questionnaire Date Thrive assessed: 10/21/23 I am a: Patient What is your living situation today?: I have a steady place to live Within the past 12 months, did the food you bought not last and you didn't have the money to get more?: Never true Within the past 12 months, did you worry whether your food would run out before you got money to buy more?: Never true Do you have trouble paying for medicines?: No Do you have trouble getting transportation to medical appointments?: No Do you have trouble paying your heating and electricity bill?: No Do you have trouble taking care of your child, family member or friend?: No Do you have trouble with day-to-day activities such as bathing, preparing meals, shopping, managing finances, etc.?: No Are you currently unemployed and looking for a job?: No Are you interested in more education?: No Currently or been in a relationship where the following occur: no concerns reported THRIVE Score: 0 AUDIT C Alcohol Use Questionnaire (AUDIT-C) 1. How often do you have a drink containing alcohol?: Monthly or less 2. How many drinks containing alcohol do you have on a typical day when you are drinking?: 1 or 2 3. How often do you have six or more drinks on one occasion?: Never Total Score: 1 PATRIC-7 AMB Questionnaire PATRIC-7 Date PATRIC - 7 assessed: 08/12/23 Source: Developed by Drs. George Andrew, Marion Vasques, Milad Goncalves and colleagues, with an educational jaylen from [employer]. Physical exam (Primary Care) Vital Signs: Last Vital Signs Pulse 82 11/26/23 15:36 BP 114/62 11/26/23 15:36 Pulse Ox 95 11/26/23 15:36 Oxygen Delivery Method Room Air 11/26/23 15:36 BMI result Body Mass Index 21.3 Tobacco/Smoking Status: Tobacco use Status Tobacco use date assessed 09/17/23 11/26/23 15:36 Patient Tobacco Use Status Former Tobacco user 11/26/23 15:36 Tobacco use type Cigarette 11/26/23 15:36 e-Cigarette/Vaping Use Never Used 11/26/23 15:36 Thrive Assessment: Date of Thrive Assessment Date Thrive assessed 10/21/23 11/26/23 15:36 Currently or been in a relationship where the following occur: no concerns reported Const General: alert; No acute distress Eyes Conjunctivae: conjunctivae normal Resp Auscultation: clear to auscultation bilaterally Cardio Rate: regular rate Rhythm: regular rhythm GI Inspection: Yes normal to inspection Extrem General: Yes normal to inspection and No edema Results AMB Hemoglobin A1c AMB Hemoglobin A1c 8.1 % Last Edit by EDSON Smith on 11/26/23 15:53 Results Reviewed Results Reviewed: Laboratory Last Values Hgb A1c (Clinic) 8.1 % (4.0-6.0) H 11/26/23 15:37 Assessment and Plan Assessment & Plan (1) Type 2 diabetes mellitus with hyperglycemia: Code(s): E11.65 - Type 2 diabetes mellitus with hyperglycemia Qualifiers: Diabetes mellitus long term care administrator insulin use: without long-term use Qualified Code(s): E11.65 - Type 2 diabetes mellitus with hyperglycemia Plan: Decrease the amount of carbohydrate intake, pasta, bread, rice and potatoes are all sugar and that is aside from all the sweet stuff, remember that fruits are good but they are Sweet also. Discussed the need to get sugars under better control with diet and exercise. On metformin 1000 mg twice a day Jardiance 25 mg once a day Trulicity at 1.5 mg once a week November 2023 A1c is still 8.1 (2) Tobacco abuse: Comment: still smoking 06/2023 Code(s): Z72.0 - Tobacco use Plan: Patient is strongly advised to stop smoking! (3) Coronary artery disease: Code(s): I25.10 - Atherosclerotic heart disease of [place] coronary artery without angina pectoris Qualifiers: Coronary Disease-Associated Artery/Lesion type: [place] artery [place] vs. transplanted heart: [place] heart Associated angina: without angina Qualified Code(s): I25.10 - Atherosclerotic heart disease of [place] coronary artery without angina pectoris Plan: Control the cholesterol, weight, blood pressure, diabetes continue with aspirin 81 mg once a day (4) Wedge compression fracture of lumbar vertebra: Comment: May 2022 MR L1 and L2 Code(s): S32.000A - Wedge compression fracture of unspecified lumbar vertebra, initial encounter for closed fracture Plan: Narcotic pain meds: Is being prescribed with the understanding that these medications are potentially addictive and should be used only when absolutely necessary and must always be secured. Any remaining pills should be safely disposed off appropriately. Patient is advised that narcotics can impaired judgment and one should not drive or operate heavy machinery while taking these medications. Never share these medications with anybody and do not leave them unattended. They will not be replaced under any circumstances. Urine drug screen requested Orders: Orders Drug Screen Urine Today S32.000A - Wedge compression fracture of unspecified lumbar vertebra, initial encounter for closed fracture AMB Hemoglobin A1c Today E11.65 - Type 2 diabetes mellitus with hyperglycemia Opiates GCMS Expanded, Ur Today S32.000A - Wedge compression fracture of unspecified lumbar vertebra, initial encounter for closed fracture Medications: New simethicone 125 mg PO TID PRN 60 caps 0RF abdominal distention eletriptan (Relpax) 40 mg PO .QD PRN 14 tabs 2RF migraine headache Coding Level of Care Code Est Pt Level 4 (60916) Diagnoses Type 2 diabetes mellitus with hyperglycemia, without long-term current use of insulin E11.65 Diabetes mellitus long-term insulin use: without long-term use Tobacco abuse Z72.0 Coronary artery disease involving [place] coronary artery of [place] heart without angina pectoris I25.10 Coronary Disease-Associated Artery/Lesion type: [place] artery [place] vs. transplanted heart: [place] heart Associated angina: without angina Wedge compression fracture of lumbar vertebra S32.000A
[2023-11-26 15:36] VITALS: BP 114/62; PULSE 82; O2SAT 95; BMI 21.3
== END 2023-11-27 09:24 | disposition home or self-care (01) ==
PROVIDERS: PCP Internal Medicine; Visit Provider Internal Medicine
DX: E11.65 Type 2 diabetes mellitus with hyperglycemia (principal); Z72.0 Tobacco use; I25.10 Atherosclerotic heart disease of native coronary artery without angina pectoris; S32.000A Wedge compression fracture of unspecified lumbar vertebra, initial encounter for closed fracture
CPT/HCPCS: 83036; 99214

== ENCOUNTER 2023-11-26 18:27 | Outpatient (REF) | payer MEDICARE, MEDICAID, SELFPAY ==
[2023-12-02 10:45] LABS: Codeine, Ur NEGATIVE; Hydrocodone, Ur NEGATIVE; Hydromorphone, Ur NEGATIVE; Morphine, Ur NEGATIVE; Norhydrocodone, Ur NEGATIVE
== END 2023-11-26 18:28 | disposition home or self-care (01) ==
LOC: HO.LNP 18:27
PROVIDERS: Visit Provider Internal Medicine
DX: Z13.89 Encounter for screening for other disorder (principal)
CPT/HCPCS: 80365; G0480

== ENCOUNTER 2023-11-26 18:27 | Outpatient (REF) | payer MEDICARE, MEDICAID, SELFPAY ==
[2023-11-26 19:11] LABS: Amphetamine Screen Urine Not Detected (Not Detect); Barbiturates, Urine Not Detected (Not Detect); Benzodiazepines Screen Urine POSITIVE (Not Detect); Buprenorphine Scr Not Detected (Not Detect); Cannabinoid Screen Urine Not Detected (Not Detect); Cocaine Screen Urine Not Detected (Not Detect); Fentanyl, urine Not Detected (Not Detect); Methadone Screen, Urine Not Detected (Not Detect); Opiate Screen Urine POSITIVE (Not Detect); Oxycodone Screen Urine Positive (Not Detect); Phencyclidine Screen Urine Not Detected (Not Detect)
== END 2023-11-26 18:28 | disposition home or self-care (01) ==
LOC: HO.LNP 18:27
PROVIDERS: Visit Provider Internal Medicine
DX: S32.000A Wedge compression fracture of unspecified lumbar vertebra, initial encounter for closed fracture (principal); F11.20 Opioid dependence, uncomplicated
CPT/HCPCS: 80307; 80365; G0480

== ENCOUNTER 2023-12-18 15:48 | Outpatient (AMB) | payer MEDICARE, SELFPAY ==
[2023-12-18 15:49] VITALS: BP 136/70; PULSE 89; O2SAT 96; BMI 20.7
--- NOTE | 2023-12-18 15:49 | A.OFFPC_ITS ---
Vital Signs 12/18/23 15:49 Height 5 ft 7 in Weight 132 lb BMI 20.7 BP 136/70 Blood Pressure Location Lt brachial Position Sitting Pulse 89 Pulse Source Pulse Oximeter Pulse Oximetry (%) 96 Oxygen Delivery Method Room Air Intake Visit Reasons: 1mth f/u - see comments Allergies No Known Allergies Allergy (Verified 12/18/23 15:50) Tobacco use date assessed: 09/17/23 Fall risk assessment: No Falls in past year Last assessed Fall Risk: 12/18/23 Dental Screening Dental Screen Date: 10/21/23 HPI 1mth f/u - see comments HPI Details 68-year-old female smoker with uncontrol led diabetes mellitus coronary artery disease history of lumbar wedge compression fraction on narcotic pain medication. Patient's mammograms still has not been done, bone density has been requested. Hemoglobin A1c done last month shows still elevated at 8.1 PFSH Medical History Osteoarthritis Hypercholesterolemia Coronary artery disease Attention deficit disorder Right radial fracture Pulmonary nodule Diabetic nephropathy Carotid stenosis Anxiety and depression Hypertension Type 2 diabetes mellitus with hyperglycemia Lumbar spondylosis Surgical History H/O endarterectomy Amputation toe Family History Father Stroke Mother Pancreatic cancer Son Sleep apnea Social History Housing: House Alcohol intake: current Alcohol intake frequency: holidays/special occasions only Alcohol type: wine Patient Tobacco Use Status: Former Tobacco user Tobacco use type: Cigarette Cigarettes Per Day: 5 e-Cigarette/Vaping Use: Never Used Second Hand Smoke Exposure: Yes service: No Current occupational status: unemployed Cognitive needs: No Hearing needs: No Vision needs: Yes Questionnaire PHQ-9 Over the last 2 weeks, how often have you been bothered by any of the following problems? 1. Little interest or pleasure in doing things: more than half the days 2. Feeling down, depressed, or hopeless: not at all 3. Trouble falling or staying asleep, or sleeping too much: more than half the days 4. Feeling tired or having little energy: more than half the days 5. Poor appetite or overeating: more than half the days (poor appetite) 6. Feeling bad about yourself - or that you are a failure or have let yourself or your family down: more than half the days 7. Trouble concentrating on things, such as reading the newspaper or watching television: not at all 8. Moving or speaking so slowly that other people could have noticed. Or the opposite - being so fidgety or restless that you have been moving around a lot more than usual: not at all 9. Thoughts that you would be better off or of hurting yourself in some way: not at all Total score: 10 Depression Screening Interpretation: Positive Depression Screening Done: Yes Source: Developed by Drs. George Andrew, Marion Vasques, Milad Goncalves and colleagues, with an educational jaylen from [employer]. Thrive Questionnaire Date Thrive assessed: 10/21/23 AUDIT C Alcohol Use Questionnaire (AUDIT-C) 1. How often do you have a drink containing alcohol?: Monthly or less 2. How many drinks containing alcohol do you have on a typical day when you are drinking?: 1 or 2 3. How often do you have six or more drinks on one occasion?: Never Total Score: 1 PATRIC-7 AMB Questionnaire PATRIC-7 Date PATRIC - 7 assessed: 08/12/23 Source: Developed by Drs. George Andrew, Marion Vasques, Milad osborne nd colleagues, with an educational jaylen from [employer]. Physical exam (Primary Care) Vital Signs: Last Vital Signs Pulse 89 12/18/23 15:49 BP 136/70 12/18/23 15:49 Pulse Ox 96 12/18/23 15:49 Oxygen Delivery Method Room Air 12/18/23 15:49 BMI result Body Mass Index 20.7 Tobacco/Smoking Status: Tobacco use Status Tobacco use date assessed 09/17/23 12/18/23 15:54 Patient Tobacco Use Status Former Tobacco user 12/18/23 15:54 Tobacco use type Cigarette 12/18/23 15:54 e-Cigarette/Vaping Use Never Used 12/18/23 15:54 PHQ-9: PHQ-9 Score PHQ-9: Total score 12/18/23 15:54 Depression Screening Interpretation: Positive Thrive Assessment: Date of Thrive Assessment Date Thrive assessed 10/21/23 12/18/23 15:54 Const General: alert; No acute distress Eyes Conjunctivae: conjunctivae normal Resp Other: terminal wheezing bilateral Cardio Rate: regular rate Rhythm: regular rhythm GI Inspection: Yes normal to inspection Extrem General: Yes normal to inspection and No edema Assessment and Plan Assessment & Plan (1) Tobacco abuse: Comment: still smoking 06/2023 Code(s): Z72.0 - Tobacco use Plan: Patient is strongly advised to stop smoking! (2) Coronary artery disease: Code(s): I25.10 - Atherosclerotic heart disease of [place] coronary artery without angina pectoris Qualifiers: Coronary Disease-Associated Artery/Lesion type: [place] artery [place] vs. transplanted heart: [place] heart Associated angina: without angina Qualified Code(s): I25.10 - Atherosclerotic heart disease of [place] coronary artery without angina pectoris Plan: Control the cholesterol, weight, blood pressure, diabetes continue with aspirin (3) Type 2 diabetes mellitus with hyperglycemia: Code(s): E11.65 - Type 2 diabetes mellitus with hyperglycemia Qualifiers: Diabetes mellitus termite treater helper insulin use: without termite treater helper use Qualified Code(s): E11.65 - Type 2 diabetes mellitus with hyperglycemia Plan: Decrease the amount of carbohydrate intake, pasta, bread, rice and potatoes are all sugar and that is aside from all the sweet stuff, remember that fruits are good but they are Sweet also. Hemoglobin A1c goal of less than 7.0. On Trulicity right now Jardiance 25 mg once a day metformin a 1000 mg twice a day (4) Hypertension: Code(s): I10 - Essential (primary) hypertension Qualifiers: Hypertension type: essential hypertension Qualified Code(s): I10 - Essential (primary) hypertension Plan: Continue with blood pressure medication. Decrease salt intake and exercise on lisinopril 2.5 mg once a day lisinopril 20 mg once a day isosorbide mononitrate chlorthalidone (5) Hypercholesterolemia: Code(s): E78.00 - Pure hypercholesterolemia, unspecified Plan: Avoid fried foods, chicken skin, eggs, butter margarine, pastries and meat. Be it pork or beef they have a lot of cholesterol LDL goal of less than 70 and triglyceride of less than 150. Patient on rosuvastatin 40 mg once a day patient is reminded about the blood work (6) Generalized anxiety disorder: Comment: Bradley Maradiaga seeing Q 2 months Code(s): F41.1 - Generalized anxiety disorder Plan: Continue with present medication and counseling (7) Wedge compression fracture of lumbar vertebra: Comment: May 2022 MR L1 and L2 Code(s): S32.000A - Wedge compression fracture of unspecified lumbar vertebra, initial encounter for closed fracture Plan: Narcotic pain meds: Is being prescribed with the understanding that these medications are potentially addictive and should be used only when absolutely necessary and must always be secured. Any remaining pills should be safely disposed off appropriately. Patient is advised that narcotics can impaired judgment and one should not drive or operate heavy machinery while taking these medications. Never share these medications with anybody and do not leave them unattended. They will not be replaced under any circumstances. (8) Asthma: Code(s): J45.909 - Unspecified asthma, uncomplicated Plan: Patient is strongly advised to stop smoking! Patient is prescribed albuterol inhaler (9) Hematemesis: Code(s): K92.0 - Hematemesis Plan: Patient is advised to take blood work , chest xray requested and referral to Gastroenterology Orders: Orders XR chest 2V Today K92.0 - Hematemesis Referrals Endocrinology Referral E11.65 - Type 2 diabetes mellitus with hyperglycemia Gastroenterology Referral K92.0 - Hematemesis Medications: New albuterol sulfate 90 mcg/actuation (Ventolin HFA) 2 puffs inhalation Q6H PRN 8.5 grams 0RF shortness of breath or wheezing Z72.0 - Tobacco use promethazine 25 mg PO TID PRN 20 tabs 0RF nausea and vomiting Z72.0 - Tobacco use Discontinued nicotine (polacrilex) Discontinued Reason: Duplicate 4 mg buccal Q2H 100 ea 0RF Z72.0 - Tobacco use nicotine Discontinued Reason: Duplicate 1 patch transdermal DAILY 28 ea 1RF Z72.0 - Tobacco use albuterol sulfate 90 mcg/actuation Discontinued Reason: Duplicate 2 puffs PO Q4H PRN 8.5 grams 0RF bronchospasm J45.909 - Unspecified asthma, uncomplicated varenicline (Chantix Continuing Month Box) Discontinued Reason: Doctor's Order 1 mg PO BID 56 tabs 1RF Z72.0 - Tobacco use ondansetron Discontinued Reason: Patient Refused 8 mg PO Q12H PRN 30 tabs 2RF for nausea/vomiting R11.0 - Nausea Coding Level of Care Code Est Pt Level 4 (63971) Complex EM visit Add On G2211 Diagnoses Tobacco abuse Z72.0 Coronary artery disease involving [place] coronary artery of [place] heart without angina pectoris I25.10 Coronary Disease-Associated Artery/Lesion type: [place] artery [place] vs. transplanted heart: [place] heart Associated angina: without angina Type 2 diabetes mellitus with hyperglycemia, without long-term current use of insulin E11.65 Diabetes mellitus termite treater helper insulin use: without termite treater helper use Essential hypertension I10 Hypertension type: essential hypertension Hypercholesterolemia E78.00 Generalized anxiety disorder F41.1 Wedge compression fracture of lumbar vertebra S32.000A Asthma J45.909 Hematemesis K92.0
== END 2023-12-18 16:40 | disposition home or self-care (01) ==
PROVIDERS: PCP Internal Medicine; Visit Provider Internal Medicine
DX: E11.65 Type 2 diabetes mellitus with hyperglycemia (principal); S32.000A Wedge compression fracture of unspecified lumbar vertebra, initial encounter for closed fracture; Z72.0 Tobacco use; I25.10 Atherosclerotic heart disease of native coronary artery without angina pectoris; I10 Essential (primary) hypertension; E78.00 Pure hypercholesterolemia, unspecified; F41.1 Generalized anxiety disorder; J45.909 Unspecified asthma, uncomplicated; K92.0 Hematemesis
CPT/HCPCS: 99214; G2211

== ENCOUNTER 2024-01-15 15:58 | Outpatient (AMB) | payer MEDICARE, SELFPAY ==
[2024-01-15 15:59] VITALS: BP 118/58; PULSE 92; O2SAT 95; BMI 19.8
--- NOTE | 2024-01-15 15:59 | MHC.PC.OV ---
Vital Signs 01/15/24 15:59 Height 5 ft 7 in Weight 126 lb 4 oz BMI 19.8 BP 118/58 L Blood Pressure Location Lt brachial Position Sitting Pulse 92 Pulse Source Pulse Oximeter Pulse Oximetry (%) 95 Oxygen Delivery Method Room Air Intake Visit Reasons: 1mth f/u Data Control Clerk Supervisor Required: No Accompanied by: Self / Same As Patient Allergies No Known Allergies Allergy (Verified 01/15/24 16:13) Medication List - Last Reconciled 01/15/24 by Diandra Grady MD albuterol sulfate 90 mcg/actuation (Ventolin HFA) 2 puffs inhalation Q6H PRN alprazolam Bradley Ashwini Joynerley Q 2 weeks aspirin (Adult Low Dose Aspirin) 81 mg PO DAILY atomoxetine 25 mg PO QAM atomoxetine 60 mg PO QAM blood sugar diagnostic As directed check blood sugars q.day blood-glucose meter As directed chlorthalidone 25 mg PO DAILY cholecalciferol (vitamin D3) 25 mcg PO DAILY cyanocobalamin (vitamin B-12) 1,000 mcg PO DAILY doxazosin 2 mg PO BEDTIME dulaglutide 1.5 mg (0.5 mL) subcut QWEEK 30 days duloxetine 60 mg PO DAILY duloxetine 30 mg PO DAILY eletriptan (Relpax) 40 mg PO .QD PRN empagliflozin 25 mg PO QAM ezetimibe (Zetia) 10 mg PO DAILY 30 days hydroxyzine HCl 25 mg PO DAILY isosorbide mononitrate ER 30 mg PO DAILY lancets As directed lisinopril 20 mg PO DAILY loperamide 2 mg PO TID metformin ER 1,000 mg PO BID mupirocin 2% 1 appl topical 3XW naloxone 4 mg/actuation (Narcan) 4 mg intranasal Q3M PRN nebivolol 2.5 mg PO DAILY nitroglycerin 0.4 mg PO Every 5 minutes x3; omeprazole mg PO DAILY PRN ondansetron 8 mg PO Q8H PRN oxycodone 15 mg PO Q6H PRN 30 days pen needle, diabetic As directed rosuvastatin 40 mg PO DAILY 30 days simethicone 125 mg PO TID PRN zolpidem 5 mg PO BEDTIME PRN Tobacco use date assessed: 09/17/23 Fall risk assessment: No Falls in past year Last assessed Fall Risk: 01/15/24 Dental Screening Dental Screen Date: 10/21/23 HPI 1mth f/u HPI Details 68-year-old female smoker with multiple medical problems coronary artery disease diabetes mellitus hypertension hypercholesterolemia coming in for monthly follow-up for refill on the pain medication patient does have a history of lumbar fracture wedge compression. Review of the notes in 01/11/2024 patient had an abdominal flat plate results showing nonobstructive bowel gas pattern with no radiographic evidence of constipation. had fecal incontinence and spoke to GI - and xray requested negative. will be seeing Surgeon Apoorva Peterson and for the fecal incontinence. advised to take citrucel PFSH Medical History Osteoarthritis Hypercholesterolemia Coronary artery disease Attention deficit disorder Right radial fracture Pulmonary nodule Diabetic nephropathy Carotid stenosis Anxiety and depression Hypertension Type 2 diabetes mellitus with hyperglycemia Lumbar spondylosis Surgical History H/O endarterectomy Amputation toe Family History Father Stroke Mother Pancreatic cancer Son Sleep apnea Social History Housing: House Alcohol intake: current Alcohol intake frequency: holidays/special occasions only Alcohol type: wine Patient Tobacco Use Status: Former Tobacco user Tobacco use type: Cigarette Cigarettes Per Day: 5 e-Cigarette/Vaping Use: Never Used Second Hand Smoke Exposure: Yes service: No Current occupational status: unemployed Cognitive needs: No Hearing needs: No Vision needs: Yes Questionnaire Thrive Questionnaire Date Thrive assessed: 10/21/23 PATRIC-7 AMB Questionnaire PATRIC-7 Date PATRIC - 7 assessed: 08/12/23 Source: Developed by Drs. George Andrew, Marion Vasques, Milad Goncalves and colleagues, with an educational jaylen from [employer]. Physical exam (Primary Care) Tobacco/Smoking Status: Tobacco use Status Tobacco use date assessed 09/17/23 01/15/24 15:59 Patient Tobacco Use Status Former Tobacco user 01/15/24 15:59 Tobacco use type Cigarette 01/15/24 15:59 e-Cigarette/Vaping Use Never Used 01/15/24 15:59 Thrive Assessment: Date of Thrive Assessment Date Thrive assessed 10/21/23 01/15/24 15:59 Const General: alert; No acute distress Eyes Conjunctivae: conjunctivae normal Resp Auscultation: clear to auscultation bilaterally Cardio Rate: regular rate Rhythm: regular rhythm GI Inspection: Yes normal to inspection Extrem General: Yes normal to inspection and No edema Assessment and Plan Assessment & Plan (1) Tobacco abuse: Comment: still smoking 06/2023 Code(s): Z72.0 - Tobacco use Plan: Patient continues to smoke even with strong advise of stopping. (2) Type 2 diabetes mellitus with hyperglycemia: Code(s): E11.65 - Type 2 diabetes mellitus with hyperglycemia Qualifiers: Diabetes mellitus intermediate project manager insulin use: without assisted use Qualified Code(s): E11.65 - Type 2 diabetes mellitus with hyperglycemia Plan: Decrease the amount of carbohydrate intake, pasta, bread, rice and potatoes are all sugar and that is aside from all the sweet stuff, remember that fruits are good but they are Sweet also. Last A1c in 11/30/2023 still above 8. Patient on Trulicity Jardiance metformin. (3) Hypertension: Code(s): I10 - Essential (primary) hypertension Qualifiers: Hypertension type: essential hypertension Qualified Code(s): I10 - Essential (primary) hypertension Plan: Continue with blood pressure medication. Decrease salt intake and exercise on nebivolol 2.5 mg once a day lisinopril 20 mg once a day isosorbide mononitrate 30 mg once a day (4) Coronary artery disease: Code(s): I25.10 - Atherosclerotic heart disease of [place] coronary artery without angina pectoris Qualifiers: Coronary Disease-Associated Artery/Lesion type: [place] artery [place] vs. transplanted heart: [place] heart Associated angina: without angina Qualified Code(s): I25.10 - Atherosclerotic heart disease of [place] coronary artery without angina pectoris Plan: Control the cholesterol, weight, blood pressure, diabetes. Patient on aspirin 81 mg once a day (5) Hypercholesterolemia: Code(s): E78.00 - Pure hypercholesterolemia, unspecified Plan: Avoid fried foods, chicken skin, eggs, butter margarine, pastries and meat. Be it pork or beef they have a lot of cholesterol patient is taking rosuvastatin 40 mg once a day (6) Wedge compression fracture of lumbar vertebra: Comment: May 2022 MR L1 and L2 Code(s): S32.000A - Wedge compression fracture of unspecified lumbar vertebra, initial encounter for closed fracture Plan: Narcotic pain meds: Is being prescribed with the understanding that these medications are potentially addictive and should be used only when absolutely necessary and must always be secured. Any remaining pills should be safely disposed off appropriately. Patient is advised that narcotics can impaired judgment and one should not drive or operate heavy machinery while taking these medications. Never share these medications with anybody and do not leave them unattended. They will not be replaced under any circumstances. (7) Fecal incontinence: Code(s): R15.9 - Full incontinence of feces Plan: patient has a schedule to see surgeon on Thursday Dr. Murray. advised to try citrucel Medications: New ondansetron 8 mg PO Q8H PRN 30 tabs 0RF nausea and vomiting Discontinued promethazine Discontinued Reason: Patient Refused 25 mg PO TID PRN 20 tabs 0RF nausea and vomiting Z72.0 - Tobacco use Coding Level of Care Code Est Pt Level 4 (25824) Diagnoses Tobacco abuse Z72.0 Type 2 diabetes mellitus with hyperglycemia, without long-term current use of insulin E11.65 Diabetes mellitus intermediate project manager insulin use: without assisted use Essential hypertension I10 Hypertension type: essential hypertension Coronary artery disease involving [place] coronary artery of [place] heart without angina pectoris I25.10 Coronary Disease-Associated Artery/Lesion type: [place] artery [place] vs. transplanted heart: [place] heart Associated angina: without angina Hypercholesterolemia E78.00 Wedge compression fracture of lumbar vertebra S32.000A Fecal incontinence R15.9
== END 2024-01-15 17:26 | disposition home or self-care (01) ==
PROVIDERS: PCP Internal Medicine; Visit Provider Internal Medicine
DX: E11.65 Type 2 diabetes mellitus with hyperglycemia (principal); S32.000A Wedge compression fracture of unspecified lumbar vertebra, initial encounter for closed fracture; Z72.0 Tobacco use; I10 Essential (primary) hypertension; I25.10 Atherosclerotic heart disease of native coronary artery without angina pectoris; E78.00 Pure hypercholesterolemia, unspecified; R15.9 Full incontinence of feces
CPT/HCPCS: 99214

== ENCOUNTER 2024-02-22 16:02 | Outpatient (AMB) | payer MEDICARE, SELFPAY ==
[2024-02-22 16:14] VITALS: BP 136/70; PULSE 87; O2SAT 97; BMI 19.7
--- NOTE | 2024-02-22 16:14 | MHC.PC.OV ---
Vital Signs 02/22/24 16:14 Height 5 ft 7 in Weight 57.153 kg BMI 19.7 BP 136/70 Blood Pressure Location Lt brachial Position Sitting Pulse 87 Pulse Source Pulse Oximeter Pulse Oximetry (%) 97 Oxygen Delivery Method Room Air Intake Visit Reasons: 1mth f/u Allergies No Known Allergies Allergy (Verified 02/22/24 16:14) Tobacco use date assessed: 09/17/23 Fall risk assessment: No Falls in past year Last assessed Fall Risk: 02/22/24 Dental Screening Dental Screen Date: 10/21/23 HPI 1mth f/u HPI Details 68-year-old female smoker with diabetes mellitus hypertension coronary artery disease hypercholesterolemia seen on a monthly basis for refill on the narcotic pain medication for wedge compression fracture of the lumbar vertebrae. Last seen in January 15 2024 [facility] Medical History Osteoarthritis Hypercholesterolemia Coronary artery disease Attention deficit disorder Right radial fracture Pulmonary nodule Diabetic nephropathy Carotid stenosis Anxiety and depression Hypertension Type 2 diabetes mellitus with hyperglycemia Lumbar spondylosis Surgical History H/O endarterectomy Amputation toe Family History Father Stroke Mother Pancreatic cancer Son Sleep apnea Social History Housing: House Alcohol intake: current Alcohol intake frequency: holidays/special occasions only Alcohol type: wine Patient Tobacco Use Status: Former Tobacco user Tobacco use type: Cigarette Cigarettes Per Day: 5 e-Cigarette/Vaping Use: Never Used Second Hand Smoke Exposure: Yes service: No Current occupational status: unemployed Cognitive needs: No Hearing needs: No Vision needs: Yes Questionnaire PHQ-9 Over the last 2 weeks, how often have you been bothered by any of the following problems? 1. Little interest or pleasure in doing things: more than half the days 2. Feeling down, depressed, or hopeless: not at all 3. Trouble falling or staying asleep, or sleeping too much: more than half the days 4. Feeling tired or having little energy: more than half the days 5. Poor appetite or overeating: more than half the days (poor appetite) 6. Feeling bad about yourself - or that you are a failure or have let yourself or your family down: more than half the days 7. Trouble concentrating on things, such as reading the newspaper or watching television: not at all 8. Moving or speaking so slowly that other people could have noticed. Or the opposite - being so fidgety or restless that you have been moving around a lot more than usual: not at all 9. Thoughts that you would be better off or of hurting yourself in some way: not at all Total score: 10 Depression Screening Interpretation: Positive Depression Screening Done: Yes Source: Developed by Drs. George Andrew, Marion Vasques, Milad Goncalves and colleagues, with an educational jaylen from [employer]. Thrive Questionnaire Date Thrive assessed: 10/21/23 AUDIT C Alcohol Use Questionnaire (AUDIT-C) 1. How often do you have a drink containing alcohol?: Monthly or less 2. How many drinks containing alcohol do you have on a typical day when you are drinking?: 1 or 2 3. How often do you have six or more drinks on one occasion?: Never Total Score: 1 PATRIC-7 AMB Questionnaire PATRIC-7 Date PATRIC - 7 assessed: 08/12/23 Source: Developed by Drs. George Andrew, Marion Vasques, Milad Goncalves and colleagues, with an educational jaylen from [employer]. Physical exam (Primary Care) Vital Signs: Last Vital Signs Pulse 87 02/22/24 16:14 BP 136/70 02/22/24 16:14 Pulse Ox 97 02/22/24 16:14 Oxygen Delivery Method Room Air 02/22/24 16:14 BMI result Body Mass Index 19.7 Tobacco/Smoking Status: Tobacco use Status Tobacco use date assessed 09/17/23 02/22/24 16:15 Patient Tobacco Use Status Former Tobacco user 02/22/24 16:15 Tobacco use type Cigarette 02/22/24 16:15 e-Cigarette/Vaping Use Never Used 02/22/24 16:15 PHQ-9: PHQ-9 Score PHQ-9: Total score 10 02/22/24 16:51 Depression Screening Interpretation: Positive Thrive Assessment: Date of Thrive Assessment Date Thrive assessed 10/21/23 02/22/24 16:15 Const General: alert; No acute distress Eyes Conjunctivae: conjunctivae normal Resp Auscultation: clear to auscultation bilaterally Cardio Rate: regular rate Rhythm: regular rhythm GI Inspection: Yes normal to inspection Extrem General: Yes normal to inspection and No edema Results AMB Hemoglobin A1c AMB Hemoglobin A1c 7.1 % Last Edit by Melvi Rodrigez CMA on 02/22/24 16:47 AMB Urinalysis, Automated UA Leukoctes 0 Florencio/uL Last Edit by Melvi Rodrigez CMA on 02/22/24 17:32 UA Nitrite Positive Last Edit by Melvi Rodrigez, PLUMBER GASFITTER on 02/22/24 17:32 UA Urobilinogen 0.2 mg/dL Last Edit by Melvi Rodrigez, RIMA on 02/22/24 17:32 UA Protein 100 mg/dL Last Edit by Melvi Rodrigez, PLUMBER GASFITTER on 02/22/24 17:32 UA pH 6.0 Last Edit by Melvi Rodrigez, RIMA on 02/22/24 17:32 UA Blood 25 Twin/uL Last Edit by Melvi Rodrigez, RIMA on 02/22/24 17:32 UA Specific Felt 1.015 Last Edit by Melvi Rodrigez, RIMA on 02/22/24 17:32 UA Ketone Positive Last Edit by Melvi Rodrigez, RIMA on 02/22/24 17:32 UA Bilirubin 0 mg/dL Last Edit by Melvi Rodrigez, RIMA on 02/22/24 17:32 UA Glucose 1000 mg/dL Last Edit by Melvi Rodrigez CMA on 02/22/24 17:32 Results Reviewed Results Reviewed: Laboratory Last Values Hgb A1c (Clinic) 7.1 % (4.0-6.0) H 02/22/24 16:14 Assessment and Plan Assessment & Plan (1) Wedge compression fracture of lumbar vertebra: Comment: May 2022 MR L1 and L2 Code(s): S32.000A - Wedge compression fracture of unspecified lumbar vertebra, initial encounter for closed fracture Plan: Narcotic pain meds: Is being prescribed with the understanding that these medications are potentially addictive and should be used only when absolutely necessary and must always be secured. Any remaining pills should be safely disposed off appropriately. Patient is advised that narcotics can impaired judgment and one should not drive or operate heavy machinery while taking these medications. Never share these medications with anybody and do not leave them unattended. They will not be replaced under any circumstances. (2) Type 2 diabetes mellitus with hyperglycemia: Comment: [facility] doctor Code(s): E11.65 - Type 2 diabetes mellitus with hyperglycemia Qualifiers: Diabetes mellitus [facility] insulin use: without adjunct faculty for medical terminology use Qualified Code(s): E11.65 - Type 2 diabetes mellitus with hyperglycemia Plan: Decrease the amount of carbohydrate intake, pasta, bread, rice and potatoes are all sugar and that is aside from all the sweet stuff, remember that fruits are good but they are Sweet also. Hemoglobin A1c goal of less than 7.0. Patient is on Trulicity 1.5 mg once a week Jardiance 25 mg once a day and metformin a 1000 mg twice a day (3) Hypertension: Code(s): I10 - Essential (primary) hypertension Qualifiers: Hypertension type: essential hypertension Qualified Code(s): I10 - Essential (primary) hypertension Plan: Continue with blood pressure medication. Decrease salt intake and exercise on nebivolol 2.5 mg once a day lisinopril 20 mg once a day chlorthalidone 25 mg once a day (4) Coronary artery disease: Code(s): I25.10 - Atherosclerotic heart disease of [place] coronary artery without angina pectoris Qualifiers: Associated angina: without angina Coronary Disease-Associated Artery/Lesion type: [place] artery [place] vs. transplanted heart: [place] heart Qualified Code(s): I25.10 - Atherosclerotic heart disease of [place] coronary artery without angina pectoris Plan: Control the cholesterol, weight, blood pressure, diabetes continue with aspirin 81 mg once a day (5) Hypercholesterolemia: Code(s): E78.00 - Pure hypercholesterolemia, unspecified Plan: Avoid fried foods, chicken skin, eggs, butter margarine, pastries and meat. Be it pork or beef they have a lot of cholesterol LDL goal of less than 70 on rosuvastatin 40 mg once a day reminded blood work (6) Tobacco abuse: Comment: still smoking 06/2023 Code(s): Z72.0 - Tobacco use Plan: Patient is strongly advised to stop smoking! (7) Frequency of micturition: Code(s): R35.0 - Frequency of micturition Orders: Orders AMB Urinalysis Automated Today R35.0 - Frequency of micturition, Z13.9 - Encounter for screening, unspecified AMB Hemoglobin A1c Today Z13.9 - Encounter for screening, unspecified Referrals Ophthalmology Referral E11.65 - Type 2 diabetes mellitus with hyperglycemia Coding Level of Care Code Est Pt Level 4 (92191) Diagnoses Wedge compression fracture of lumbar vertebra S32.000A Type 2 diabetes mellitus with hyperglycemia, without long-term current use of insulin E11.65 Diabetes mellitus [facility] insulin use: without [facility] use Essential hypertension I10 Hypertension type: essential hypertension Coronary artery disease involving [place] coronary artery of [place] heart without angina pectoris I25.10 Associated angina: without angina Coronary Disease-Associated Artery/Lesion type: [place] artery [place] vs. transplanted heart: [place] heart Hypercholesterolemia E78.00 Tobacco abuse Z72.0 Frequency of micturition R35.0
== END 2024-02-22 16:57 | disposition home or self-care (01) ==
PROVIDERS: PCP Internal Medicine; Visit Provider Internal Medicine
DX: S32.000A Wedge compression fracture of unspecified lumbar vertebra, initial encounter for closed fracture (principal); E11.65 Type 2 diabetes mellitus with hyperglycemia; I10 Essential (primary) hypertension; I25.10 Atherosclerotic heart disease of native coronary artery without angina pectoris; E78.00 Pure hypercholesterolemia, unspecified; Z72.0 Tobacco use; R35.0 Frequency of micturition; Z13.9 Encounter for screening, unspecified
CPT/HCPCS: 81003; 83036; 99214

== ENCOUNTER 2024-03-21 15:55 | Outpatient (AMB) | payer MEDICARE, SELFPAY ==
[2024-03-21 15:56] VITALS: BP 138/76; PULSE 96; O2SAT 93; BMI 18.9
--- NOTE | 2024-03-21 15:56 | A.OFFPC_ITS ---
Vital Signs 03/21/24 15:56 Height 5 ft 7 in Weight 121 lb BMI 18.9 BP 138/76 Blood Pressure Location Lt brachial Position Sitting Pulse 96 Pulse Source Pulse Oximeter Pulse Oximetry (%) 93 Oxygen Delivery Method Room Air Intake Visit Reasons: 1mth f/u Oxygraph Operator Required: No Accompanied by: Self / Same As Patient Allergies No Known Allergies Allergy (Verified 03/21/24 15:57) Tobacco use date assessed: 09/17/23 Fall risk assessment: No Falls in past year Last assessed Fall Risk: 03/21/24 Dental Screening Dental Screen Date: 10/21/23 HPI 1mth f/u HPI Details 69-year-old female smoker with a history of wedge compression fracture of the lumbar vertebrae on narcotic pain medication refilled on a monthly basis having diabetes mellitus hypertension coronary artery disease hypercholesterolemia coming in for follow-up. Last seen in February 22 2024. Patient is up-to-date with colonoscopy due for mammogram due for bone density [facility] Medical History Osteoarthritis Hypercholesterolemia Coronary artery disease Attention deficit disorder Right radial fracture Pulmonary nodule Diabetic nephropathy Carotid stenosis Anxiety and depression Hypertension Type 2 diabetes mellitus with hyperglycemia Lumbar spondylosis Surgical History H/O endarterectomy Amputation toe Family History Father Stroke Mother Pancreatic cancer Son Sleep apnea Social History Housing: House Alcohol intake: current Alcohol intake frequency: holidays/special occasions only Alcohol type: wine Patient Tobacco Use Status: Former Tobacco user Tobacco use type: Cigarette Cigarettes Per Day: 5 e-Cigarette/Vaping Use: Never Used Second Hand Smoke Exposure: Yes service: No Current occupational status: unemployed Cognitive needs: No Hearing needs: No Vision needs: Yes Questionnaire PHQ-9 Over the last 2 weeks, how often have you been bothered by any of the following problems? 1. Little interest or pleasure in doing things: more than half the days 2. Feeling down, depressed, or hopeless: not at all 3. Trouble falling or staying asleep, or sleeping too much: more than half the days 4. Feeling tired or having little energy: more than half the days 5. Poor appetite or overeating: more than half the days (poor appetite) 6. Feeling bad about yourself - or that you are a failure or have let yourself or your family down: more than half the days 7. Trouble concentrating on things, such as reading the newspaper or watching television: not at all 8. Moving or speaking so slowly that other people could have noticed. Or the opposite - being so fidgety or restless that you have been moving around a lot more than usual: not at all 9. Thoughts that you would be better off or of hurting yourself in some way: not at all Total score: 10 Depression Screening Interpretation: Positive Depression Screening Done: Yes Source: Developed by Drs. George Andrew, Marion Vasques, Milad Goncalves and colleagues, with an educational jaylen from [employer]. Thrive Questionnaire Date Thrive assessed: 10/21/23 AUDIT C Alcohol Use Questionnaire (AUDIT-C) 1. How often do you have a drink containing alcohol?: Monthly or less 2. How many drinks containing alcohol do you have on a typical day when you are drinking?: 1 or 2 3. How often do you have six or more drinks on one occasion?: Never Total Score: 1 PATRIC-7 AMB Questionnaire PATRIC-7 Date PATRIC - 7 assessed: 08/12/23 Source: Developed by Drs. George Andrew, Marion Vasques, Milad Goncalves and colleagues, with an educational jaylen from [employer]. Physical exam (Primary Care) Vital Signs: Last Vital Signs Pulse 96 03/21/24 15:56 BP 138/76 03/21/24 15:56 Pulse Ox 93 03/21/24 15:56 Oxygen Delivery Method Room Air 03/21/24 15:56 BMI result Body Mass Index 18.9 Tobacco/Smoking Status: Tobacco use Status Tobacco use date assessed 09/17/23 03/21/24 16:02 Patient Tobacco Use Status Former Tobacco user 03/21/24 16:02 Tobacco use type Cigarette 03/21/24 16:02 e-Cigarette/Vaping Use Never Used 03/21/24 16:02 PHQ-9: PHQ-9 Score PHQ-9: Total score 10 03/21/24 16:02 Depression Screening Interpretation: Positive Thrive Assessment: Date of Thrive Assessment Date Thrive assessed 10/21/23 03/21/24 16:02 Const General: alert; No acute distress Eyes Conjunctivae: conjunctivae normal Resp Auscultation: clear to auscultation bilaterally Cardio Rate: regular rate Rhythm: regular rhythm GI Inspection: Yes normal to inspection Extrem General: Yes normal to inspection and No edema Assessment and Plan Assessment & Plan (1) Type 2 diabetes mellitus with hyperglycemia: Comment: [facility] Eye doctor Code(s): E11.65 - Type 2 diabetes mellitus with hyperglycemia Qualifiers: Diabetes mellitus 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 Hemoglobin A1c goal of less than 7.0. Patient on Trulicity 1.5 mg once a week Jardiance 25 mg once a day metformin a 1000 mg twice a day (2) Tobacco abuse: Comment: still smoking 06/2023 Code(s): Z72.0 - Tobacco use Plan: Patient is strongly advised to stop smoking! (3) Hypertension: Code(s): I10 - Essential (primary) hypertension Qualifiers: Hypertension type: essential hypertension Qualified Code(s): I10 - Essential (primary) hypertension Plan: Continue with blood pressure medication. Decrease salt intake and exercise takes nebivolol 2.5 mg once a day lisinopril 20 mg once a day (4) Coronary artery disease: Code(s): I25.10 - Atherosclerotic heart disease of [place] coronary artery without angina pectoris Qualifiers: Coronary Disease-Associated Artery/Lesion type: [place] artery [place] vs. transplanted heart: [place] heart Associated angina: without angina Qualified Code(s): I25.10 - Atherosclerotic heart disease of [place] coronary artery without angina pectoris Plan: Control the cholesterol, weight, blood pressure, diabetes hold aspirin 81 mg once a (5) Hypercholesterolemia: Code(s): E78.00 - Pure hypercholesterolemia, unspecified Plan: Avoid fried foods, chicken skin, eggs, butter margarine, pastries and meat. Be it pork or beef they have a lot of cholesterol on Zetia 10 mg once a day and rosuvastatin 40 mg once a day LDL goal of less than 70 and triglyceride of less than 150 (6) Generalized anxiety disorder: Comment: [facility]adiaga seeing Q 2 months Code(s): F41.1 - Generalized anxiety disorder Plan: Continue with present medication (7) Wedge compression fracture of lumbar vertebra: Comment: May 2022 MR L1 and L2 Code(s): S32.000A - Wedge compression fracture of unspecified lumbar vertebra, initial encounter for closed fracture Plan: Narcotic pain meds: Is being prescribed with the understanding that these medications are potentially addictive and should be used only when absolutely necessary and must always be secured. Any remaining pills should be safely disposed off appropriately. Patient is advised that narcotics can impaired judgment and one should not drive or operate heavy machinery while taking these medications. Never share these medications with anybody and do not leave them unattended. They will not be replaced under any circumstances. (8) Age-related osteoporosis without current pathological fracture: Code(s): M81.0 - Age-related osteoporosis without current pathological fracture Plan: Reminded about bone density (9) Breast cancer screening by mammogram: Code(s): Z12.31 - Encounter for screening mammogram for malignant neoplasm of breast Orders: Orders MM tomosynthesis screening BI Today Z12.31 - Encounter for screening mammogram for malignant neoplasm of breast Medications: Changed From omeprazole PO DAILY PRN gerd To omeprazole 20 mg PO DAILY 90 days PRN 90 caps 1RF gerd Coding Level of Care Code Est Pt Level 4 (18359) Complex EM visit Add On G2211 Diagnoses Type 2 diabetes mellitus with hyperglycemia, without long-term current use of insulin E11.65 Diabetes mellitus long-term insulin use: without long-term use Tobacco abuse Z72.0 Essential hypertension I10 Hypertension type: essential hypertension Coronary artery disease involving [place] coronary artery of [place] heart without angina pectoris I25.10 Coronary Disease-Associated Artery/Lesion type: [place] artery [place] vs. transplanted heart: [place] heart Associated angina: without angina Hypercholesterolemia E78.00 Generalized anxiety disorder F41.1 Wedge compression fracture of lumbar vertebra S32.000A Age-related osteoporosis without current pathological fracture M81.0 Breast cancer screening by mammogram Z12.31
== END 2024-03-21 16:44 | disposition home or self-care (01) ==
PROVIDERS: PCP Internal Medicine; Visit Provider Internal Medicine
DX: E11.65 Type 2 diabetes mellitus with hyperglycemia (principal); S32.000A Wedge compression fracture of unspecified lumbar vertebra, initial encounter for closed fracture; Z72.0 Tobacco use; I10 Essential (primary) hypertension; I25.10 Atherosclerotic heart disease of native coronary artery without angina pectoris; E78.00 Pure hypercholesterolemia, unspecified; F41.1 Generalized anxiety disorder; M81.0 Age-related osteoporosis without current pathological fracture; Z12.31 Encounter for screening mammogram for malignant neoplasm of breast
CPT/HCPCS: 99214; G2211

== ENCOUNTER 2024-03-24 11:09 | Outpatient (REF) | payer MEDICARE, SELFPAY ==
[2024-03-24 13:24] LABS: MANUAL DIFF FLAG NO
[2024-03-24 13:45] LABS: Estimated Average Glucose 148 mg/dL; Hemoglobin A1c % 6.8 % (<6.0)
[2024-03-24 13:49] LABS: Alanine Aminotransferase 38 U/L (0-31); Alkaline Phosphatase 95 U/L (39-117); Anion Gap 13 (12-20); Aspartate Amino Transferase 23 U/L (5-31); Bilirubin Total 0.2 mg/dL (0.0-1.0); Blood Urea Nitrogen 17 mg/dL (9-16); Calcium 10.3 mg/dL (8.4-10.2); Carbon Dioxide 30 mmol/L (22-29); Chloride 100 mmol/L (96-108); Cholesterol 114 mg/dL (<200); Estimated Glomerular Filt Rate 48; Glucose Random 143 mg/dL (60-115); HDL Cholesterol 39 mg/dL (>40); LDL Cholesterol Calculated 46 mg/dL (<100); Sodium 138 mmol/L (135-145); Total Protein 7.2 g/dL (6.5-8.0); Triglycerides 146 mg/dL (<150)
[2024-03-24 14:01] LABS: Basophils Absolute Auto 0.1 X10*3/uL (0.0-0.2); Basophils Percent Auto 0.6 % (0-2); Eosinophils Absolute Auto 0.2 X10*3/uL (0.0-0.4); Eosinophils Percent Auto 1.9 % (0-4); Hematocrit 48.2 % (37.0-47.0); Hemoglobin 15.5 g/dl (12.0-16.0); Imm Gran Abs Auto 0.03 X10*3/uL (0.00-0.03); Imm Gran Pct Auto 0.3 % (0.0-0.4); Lymphocytes Absolute Auto 4.3 X10*3/uL (1.2-4.9); Lymphocytes Percent Auto 43.8 % (20-40); Mean Corpuscular HGB Conc 32.2 g/dl (31.0-35.0); Mean Corpuscular Hemoglobin 28.7 pg (27.0-33.0); Mean Corpuscular Volume 89.1 fL (80.0-98.0); Mean Platelet Volume 10.1 fL (9.4-12.3); Monocytes Absolute Auto 0.5 X10*3/uL (0.1-1.2); Monocytes Percent Auto 5.1 % (2-11); Neutrophils Absolute Auto 4.7 x10*3/uL (2.0-8.3); Neutrophils Percent Auto 48.3 % (45-73); Platelet Count 340 X10*3/uL (160-400); Red Blood Count 5.41 X10*6/uL (4.20-5.50); Red Cell Distribution Width 12.5 % (11.0-16.0); White Blood Count 9.8 X10*3/uL (4.8-10.8)
[2024-03-24 14:10] LABS: Folate 7.5 ng/mL (> or = 4.0); Vitamin B12 650 pg/mL (200-900)
[2024-03-24 14:16] LABS: Free T4 (Free Thyroxine) 0.97 ng/dL (0.71-1.85); Thyroid Stimulating Hormone 1.17 uIU/mL (0.32-4.0); Vitamin D 25-OH Total 32.5 ng/mL (>30)
[2024-03-24 14:18] LABS: Creatinine Urine 75.57 mg/dL; Microalbum/Creatinine Ratio Ur 489.6 ug/mg cr (<30)
== END 2024-03-24 11:10 | disposition home or self-care (01) ==
LOC: HO.HMGCLDS 11:09
PROVIDERS: PCP Internal Medicine; Visit Provider Internal Medicine
DX: E11.65 Type 2 diabetes mellitus with hyperglycemia (principal); E78.00 Pure hypercholesterolemia, unspecified
CPT/HCPCS: 36415; 80053; 80061; 82043; 82306; 82570; 82607; 82746; 83036; 84439; 84443; 85025

== ENCOUNTER 2024-04-29 14:57 | Outpatient (AMB) | payer MEDICARE, SELFPAY ==
[2024-04-29 15:15] VITALS: BP 130/60; PULSE 113; O2SAT 97; BMI 19.3
--- NOTE | 2024-04-29 15:15 | MHC.PC.OV ---
Vital Signs 04/29/24 15:15 Height 5 ft 7 in Weight 123 lb 6 oz BMI 19.3 BP 130/60 Blood Pressure Location Lt brachial Position Sitting Pulse 113 H Pulse Source Pulse Oximeter Pulse Oximetry (%) 97 Oxygen Delivery Method Room Air Intake Visit Reasons: [facility] - Staph Infection, Confusion, UTI [employer] Manager Required: No Accompanied by: Self / Same As Patient Allergies No Known Allergies Allergy (Verified 04/29/24 15:16) Tobacco use date assessed: 09/17/23 Dental Screening Dental Screen Date: 10/21/23 HPI [facility] - Staph Infection, Confusion, UTI HPI Details 69-year-old female smoker with multiple medical problems uncontrolled diabetes mellitus hypertension coronary artery disease hypercholesterolemia generalized anxiety disorder history of wedge compression fracture of the lumbar vertebra on narcotic pain medication coming in for follow-up. Last seen in March 21 2024. ER notes 04/11/2024 mental status change treated for UTI and sepsis. Presently has a picc line Staph Aureus infection- bacteremia. asking for physical therapy and VNA. Diagnosis of sepsis withN STEMI. CT scan head April 11 low at acute intracranial pathology. CT angio neck no high-grade stenosis of the major branches with intracranial arteries 3 x 4 mm anterior communicating artery at the junction of the left RENZO and anterior year communicating artery vertebral arteries no significant stenosis.. Ankle-brachial index right 0.53 left side 0.8 PA D when IRLANDA is 0.9. Mild to moderate 0.4 2.9 and less than 0.4 is suggestive of severe CAD so moderate CAD CTA of the abdomen moderate to severe atherosclerotic disease chronic mild L1 compression deformity and new but chronic appearing mild L2 compression deformity. Trace pleural effusions distended urinary bladder diverticulosis right lower extremity severe stenosis distal right superficial femoral artery focal moderate to severe stenosis of the mid right popliteal artery left lower extremity multifocal moderate stenosis in the left superficial femoral artery short segment severe stenosis proximal and mid left popliteal artery. [facility] Medical History (Updated 04/29/24 @ 19:07 by Diandra Grady MD) Right iliac artery stenosis Osteoarthritis Hypercholesterolemia Coronary artery disease Attention deficit disorder Right radial fracture Pulmonary nodule Diabetic nephropathy Carotid stenosis Anxiety and depression Hypertension Type 2 diabetes mellitus with hyperglycemia Lumbar spondylosis Surgical History (Updated 04/29/24 @ 18:46 by Diandra Grady MD) H/O endarterectomy Amputation toe Family History Father Stroke Mother Pancreatic cancer Son Sleep apnea Social History Housing: House Alcohol intake: current Alcohol intake frequency: holidays/special occasions only Alcohol type: wine Patient Tobacco Use Status: Former Tobacco user Tobacco use type: Cigarette Cigarettes Per Day: 5 e-Cigarette/Vaping Use: Never Used Second Hand Smoke Exposure: Yes service: No Current occupational status: unemployed Cognitive needs: No Hearing needs: No Vision needs: Yes Questionnaire Thrive Questionnaire Date Thrive assessed: 10/21/23 PATRIC-7 AMB Questionnaire PATRIC-7 Date PATRIC - 7 assessed: 08/12/23 Source: Developed by Drs. George Andrew, Marion Vasques, Milad Goncalves and colleagues, with an educational jaylen from [employer]. Physical exam (Primary Care) Vital Signs: Last Vital Signs Pulse 113 H 04/29/24 15:15 BP 130/60 04/29/24 15:15 Pulse Ox 97 04/29/24 15:15 Oxygen Delivery Method Room Air 04/29/24 15:15 BMI result Body Mass Index 19.3 Tobacco/Smoking Status: Tobacco use Status Tobacco use date assessed 09/17/23 04/29/24 15:17 Patient Tobacco Use Status Former Tobacco user 04/29/24 15:17 Tobacco use type Cigarette 04/29/24 15:17 e-Cigarette/Vaping Use Never Used 04/29/24 15:17 Thrive Assessment: Date of Thrive Assessment Date Thrive assessed 10/21/23 04/29/24 15:17 Const General: alert; No acute distress Eyes Conjunctivae: conjunctivae normal Resp Auscultation: clear to auscultation bilaterally Cardio Rate: regular rate Rhythm: regular rhythm GI Inspection: Yes normal to inspection Extrem General: Yes normal to inspection and No edema Ankle/foot/toe images: 1. R big toe amputation 2. Tips of the 4 toes remaining are black no discharge. 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 transplanted heart: [place] heart Closed wedge compression fracture of L2 vertebra, sequela S32.020S Encounter type: sequela Fracture type: closed Lumbar vertebra fracture level: L2 Gangrene of right foot I96 NSTEMI (non-ST elevated myocardial infarction) I21.4 Peripheral arterial disease I73.9 Compression fracture of L2 vertebra, sequela S32.020S Encounter type: sequela Lumbar vertebra fracture level: L2 Assessment & Plan Assessment & Plan (1) UTI (urinary tract infection): Comment: Urosepsis admission from April 2024 Code(s): N39.0 - Urinary tract infection, site not specified Category: Medical Qualifiers: Urinary tract infection type: acute pyelonephritis Qualified Code(s): N10 - Acute pyelonephritis Plan: Patient recently discharged. Patient on IV antibiotic presently (2) Tobacco abuse: Comment: still smoking 06/2023 Code(s): Z72.0 - Tobacco use Category: Medical Plan: Patient is strongly advised to stop smoking! (3) Type 2 diabetes mellitus with hyperglycemia: Comment: [facility] Eye doctor Code(s): E11.65 - Type 2 diabetes mellitus with hyperglycemia Category: Medical Qualifiers: Diabetes mellitus senior living insulin use: without terminal superintendent use Qualified Code(s): E11.65 - Type 2 diabetes mellitus with hyperglycemia Plan: Decrease the amount of carbohydrate intake, pasta, bread, rice and potatoes are all sugar and that is aside from all the sweet stuff, remember that fruits are good but they are Sweet also. March hemoglobin A1c 6.8 (4) Hypertension: Code(s): I10 - Essential (primary) hypertension Category: Medical Qualifiers: Hypertension type: essential hypertension Qualified Code(s): I10 - Essential (primary) hypertension Plan: Continue with blood pressure medication. Decrease salt intake and exercise (5) Coronary artery disease: Code(s): I25.10 - Atherosclerotic heart disease of [place] coronary artery without angina pectoris Category: Medical Qualifiers: Associated angina: without angina Coronary Disease-Associated Artery/Lesion type: [place] artery [place] vs. transplanted heart: [place] heart Qualified Code(s): I25.10 - Atherosclerotic heart disease of [place] coronary artery without angina pectoris Plan: Control the cholesterol, weight, blood pressure, diabetes (6) Wedge compression fracture of lumbar vertebra: Comment: May 2022 MR L1 and L2 Code(s): S32.000A - Wedge compression fracture of unspecified lumbar vertebra, initial encounter for closed fracture Category: Medical Qualifiers: Encounter type: sequela Fracture type: closed Lumbar vertebra fracture level: L2 Qualified Code(s): S32.020S - Wedge compression fracture of second lumbar vertebra, sequela Plan: Narcotic pain meds: Is being prescribed with the understanding that these medications are potentially addictive and should be used only when absolutely necessary and must always be secured. Any remaining pills should be safely disposed off appropriately. Patient is advised that narcotics can impaired judgment and one should not drive or operate heavy machinery while taking these medications. Never share these medications with anybody and do not leave them unattended. They will not be replaced under any circumstances. (7) Gangrene of right foot: Code(s): I96 - Gangrene, not elsewhere classified Category: Medical Plan: Will refer to Podiatry for further evaluation and management (8) NSTEMI (non-ST elevated myocardial infarction): Comment: April 2024 Code(s): I21.4 - Non-ST elevation (NSTEMI) myocardial infarction Category: Medical Plan: Continue with aspirin, Control the cholesterol, weight, blood pressure, diabetes. Continue with aspirin. (9) Peripheral arterial disease: Comment: April 2024 CT angio short segment severe stenosis distal right superficial femoral artery focal moderate to severe stenosis mid right popliteal artery left lower extremity multifocal moderate stenosis left superficial femoral artery short segment severe stenosis in the proximal and mid left popliteal artery patent 3 vessel runoff. Code(s): I73.9 - Peripheral vascular disease, unspecified Category: Medical Plan: CT angio results from admission in April 2024 (10) Lumbar compression fracture: Comment: MRI 04/2024 mild L1 moderate L2 compression fracture mild progressed degenerative disease lumbar spine moderate right T12-L1 foraminal stenosis progressed moderate right L1-L2 foraminal stenosis Code(s): S32.000A - Wedge compression fracture of unspecified lumbar vertebra, initial encounter for closed fracture Category: Medical Qualifiers: Encounter type: sequela Lumbar vertebra fracture level: L2 Qualified Code(s): S32.020S - Wedge compression fracture of second lumbar vertebra, sequela Plan: These were results from hospitalization in 05/01/2024 Orders: Orders PT Evaluation and Treatment Today S32.000A - Wedge compression fracture of unspecified lumbar vertebra, initial encounter for closed fracture Referrals Podiatry Referral E11.65 - Type 2 diabetes mellitus with hyperglycemia, I96 - Gangrene, not elsewhere classified Medications: New flash glucose sensor ([employer] [place] 2 Sensor kit) As directed 6 kits 3RF E11.65 - Type 2 diabetes mellitus with hyperglycemia flash glucose scanning reader ([employer] [place] 2 [place]) As directed 1 ea 0RF E11.65 - Type 2 diabetes mellitus with hyperglycemia
== END 2024-04-29 15:59 | disposition home or self-care (01) ==
PROVIDERS: PCP Internal Medicine; Visit Provider Internal Medicine
DX: E11.65 Type 2 diabetes mellitus with hyperglycemia (principal); I21.4 Non-ST elevation (NSTEMI) myocardial infarction; I73.9 Peripheral vascular disease, unspecified; N10 Acute pyelonephritis; Z72.0 Tobacco use; I10 Essential (primary) hypertension; I25.10 Atherosclerotic heart disease of native coronary artery without angina pectoris; S32.020S Wedge compression fracture of second lumbar vertebra, sequela

== ENCOUNTER → 2024-04-29 14:57 | Outpatient (BNVA) | payer MEDICARE, SELFPAY | PROVIDERS: PCP Internal Medicine; Visit Provider Internal Medicine | DX: N10 Acute pyelonephritis (principal); I21.4 Non-ST elevation (NSTEMI) myocardial infarction; E11.65 Type 2 diabetes mellitus with hyperglycemia; I10 Essential (primary) hypertension; I73.9 Peripheral vascular disease, unspecified; I25.10 Atherosclerotic heart disease of native coronary artery without angina pectoris; I96 Gangrene, not elsewhere classified; S32.020S Wedge compression fracture of second lumbar vertebra, sequela; Z79.82 Long term (current) use of aspirin; Z72.0 Tobacco use | CPT/HCPCS: 99212 ==

== ENCOUNTER 2024-05-30 15:58 | Outpatient (AMB) | payer MEDICARE, SELFPAY ==
[2024-05-30 16:01] VITALS: BP 90/62; PULSE 106; O2SAT 99; BMI 19.3
--- NOTE | 2024-05-30 16:01 | MHC.PC.OV ---
Vital Signs 05/30/24 16:01 05/30/24 16:26 Height 5 ft 7 in Weight 123 lb 0.287 oz BMI 19.3 BP 90/62 100/60 Blood Pressure Location Lt brachial Lt brachial Position Sitting Sitting Pulse 106 H Pulse Source Pulse Oximeter Pulse Oximetry (%) 99 Oxygen Delivery Method Room Air Intake Visit Reasons: HDF 05/15 [facility] Fall /med f./u Allergies No Known Allergies Allergy (Verified 05/30/24 16:06) Medication List - Last Reconciled 05/30/24 by Della Campos PA-C albuterol sulfate 90 mcg/actuation (Ventolin HFA) 2 puffs inhalation Q6H PRN alprazolam Bradley Benjamin Q 2 weeks aspirin (Adult Low Dose Aspirin) 81 mg PO DAILY atomoxetine 25 mg PO QAM atomoxetine 60 mg PO QAM blood sugar diagnostic As directed check blood sugars q.day blood-glucose meter As directed chlorthalidone 25 mg PO DAILY cholecalciferol (vitamin D3) 25 mcg PO DAILY cyanocobalamin (vitamin B-12) 1,000 mcg PO DAILY doxazosin 2 mg PO BEDTIME dulaglutide 1.5 mg (0.5 mL) subcut QWEEK 30 days duloxetine 60 mg PO DAILY duloxetine 30 mg PO DAILY eletriptan (Relpax) 40 mg PO .QD PRN empagliflozin 25 mg PO QAM ezetimibe (Zetia) 10 mg PO DAILY 30 days flash glucose scanning reader ([employer] Mich 2 [place]) As directed flash glucose sensor (FreeStyle Mich 2 Sensor kit) As directed hydroxyzine HCl 25 mg PO DAILY isosorbide mononitrate ER 30 mg PO DAILY lancets As directed lisinopril 20 mg PO DAILY loperamide 2 mg PO TID metformin ER 1,000 mg PO BID mupirocin 2% 1 appl topical 3XW naloxone 4 mg/actuation (Narcan) 4 mg intranasal Q3M PRN nebivolol 2.5 mg PO DAILY nitroglycerin 0.4 mg PO Every 5 minutes x3; omeprazole 20 mg PO DAILY PRN 90 days ondansetron 8 mg PO Q8H PRN oxycodone 15 mg PO Q6H PRN 30 days pen needle, diabetic As directed rosuvastatin 40 mg PO DAILY 30 days simethicone 125 mg PO TID PRN zolpidem 5 mg PO BEDTIME PRN Tobacco use date assessed: 09/17/23 Fall risk assessment: 1 Fall in past year Last assessed Fall Risk: 05/30/24 Dental Screening Dental Screen Date: 10/21/23 HPI HDF 05/15 [facility] Fall /med f./u HPI Details 69-year-old female smoker with multiple medical problems including uncontrolled diabetes mellitus, hypertension, coronary artery disease, hypercholesterolemia, generalized anxiety disorder, history of wedge compression fracture of the lumbar vertebra on narcotic pain medication last seen by Dr. Grady 04/29/2024 coming in for discharge follow up. Patient has staph A infection and was sent home with PICC line and had IV abx given. [place] in records at [facility]. tripped on container and broke 3 ribs on the right. has been running low on oxycodone since discharge from the hospital. has been using spirometer. may have taken double dose. Will have PT with [facility]. does not feel safe driving at this time due to pain with certain movement. [facility] Medical History Right iliac artery stenosis Osteoarthritis Hypercholesterolemia Coronary artery disease Attention deficit disorder Right radial fracture Pulmonary nodule Diabetic nephropathy Carotid stenosis Anxiety and depression Hypertension Type 2 diabetes mellitus with hyperglycemia Lumbar spondylosis Surgical History H/O endarterectomy Amputation toe Family History Father Stroke Mother Pancreatic cancer Son Sleep apnea Social History Housing: House Alcohol intake: current Alcohol intake frequency: holidays/special occasions only Alcohol type: wine Patient Tobacco Use Status: Former Tobacco user Tobacco use type: Cigarette Cigarettes Per Day: 5 e-Cigarette/Vaping Use: Never Used Second Hand Smoke Exposure: Yes service: No Current occupational status: unemployed Cognitive needs: No Hearing needs: No Vision needs: Yes Questionnaire Thrive Questionnaire Date Thrive assessed: 10/21/23 AUDIT C Alcohol Use Questionnaire (AUDIT-C) 1. How often do you have a drink containing alcohol?: Monthly or less 2. How many drinks containing alcohol do you have on a typical day when you are drinking?: 1 or 2 3. How often do you have six or more drinks on one occasion?: Never Total Score: 1 PATRIC-7 AMB Questionnaire PATRIC-7 Date PATRIC - 7 assessed: 08/12/23 Source: Developed by Drs. George Andrew, Marion Vasques, Milad Goncalves and colleagues, with an educational jaylen from [employer]. Review of Systems Const Denies body aches, Denies chills, Denies fever(s), Denies headache(s) and Denies poor appetite Eyes Reports no additional complaints ENT Denies dizziness and Denies headache(s) Card Denies chest pain, Denies syncope, Denies edema, Denies irregular heart rhythm, Denies lightheadedness, Denies dyspnea and Reports dyspnea on exertion (chronic) Resp Reports cough (chronic), Denies dyspnea and Reports dyspnea on exertion (chronic) GI Denies abdominal pain, Denies constipation, Denies diarrhea, Denies nausea and Denies vomiting Reports no additional complaints Musc Reports no additional complaints and Denies abnormal gait Skin/Breast Reports system reviewed and no additional complaints, except as documented Neuro Denies abnormal gait, Denies dizziness, Denies syncope and Denies headache(s) Psych Reports no additional complaints Physical exam (Primary Care) Vital Signs: Last Vital Signs Pulse 106 H 05/30/24 16:01 BP 90/62 05/30/24 16:01 Pulse Ox 99 05/30/24 16:01 Oxygen Delivery Method Room Air 05/30/24 16:01 BMI result Body Mass Index 19.3 Tobacco/Smoking Status: Tobacco use Status Tobacco use date assessed 09/17/23 05/30/24 16:06 Patient Tobacco Use Status Former Tobacco user 05/30/24 16:06 Tobacco use type Cigarette 05/30/24 16:06 e-Cigarette/Vaping Use Never Used 05/30/24 16:06 Thrive Assessment: Date of Thrive Assessment Date Thrive assessed 10/21/23 05/30/24 16:06 Const General: cooperative, healthy appearing, comfortable and no acute distress Orientation/consciousness: patient oriented x3 HENMT Head: Yes normocephalic Ears: hearing grossly normal bilaterally General nose exam: Normal external nose present Eyes General: appearance normal, both eyes and all related structures Conjunctivae: conjunctivae normal Neck Neck: Yes full ROM and Yes no lymphadenopathy Resp Effort & Inspection: normal respiratory effort Auscultation: clear to auscultation bilaterally, no crackles, no rales, no rhonchi and wheezes expiratory wheezes Cardio Rate: regular rate Rhythm: regular rhythm Skin General skin exam: no rashes or lesions noted Neuro General: patient oriented x3 Gait exam (Neuro): Normal gait present Extrem General: Yes normal to inspection, Yes full ROM and No edema Psych Affect: normal affect Attitude: cooperative Insight: Good insight present (Psych) Judgement: Good judgement present (Psych) Coding Level of Care Code Est Pt Level 4 (39575) Diagnoses Compression fracture of L2 vertebra, sequela S32.020S Encounter type: sequela Lumbar vertebra fracture level: L2 Peripheral arterial disease I73.9 NSTEMI (non-ST elevated myocardial infarction) I21.4 Generalized anxiety disorder F41.1 Hypercholesterolemia E78.00 Essential hypertension I10 Hypertension type: essential hypertension Type 2 diabetes mellitus with hyperglycemia, without long-term current use of insulin E11.65 Diabetes mellitus intermediate project manager insulin use: without fdc use Rib fractures S22.49XA Assessment & Plan Assessment & Plan (1) Lumbar compression fracture: Comment: MRI 04/2024 mild L1 moderate L2 compression fracture mild progressed degenerative disease lumbar spine moderate right T12-L1 foraminal stenosis progressed moderate right L1-L2 foraminal stenosis Code(s): S32.000A - Wedge compression fracture of unspecified lumbar vertebra, initial encounter for closed fracture Category: Medical Qualifiers: Encounter type: sequela Lumbar vertebra fracture level: L2 Qualified Code(s): S32.020S - Wedge compression fracture of second lumbar vertebra, sequela Plan: Continue with pain management. (2) Peripheral arterial disease: Comment: April 2024 CT angio short segment severe stenosis distal right superficial femoral artery focal moderate to severe stenosis mid right popliteal artery left lower extremity multifocal moderate stenosis left superficial femoral artery short segment severe stenosis in the proximal and mid left popliteal artery patent 3 vessel runoff. Code(s): I73.9 - Peripheral vascular disease, unspecified Category: Medical Plan: Strongly advised to stop smoking! Good control of blood pressure. (3) NSTEMI (non-ST elevated myocardial infarction): Comment: April 2024 Code(s): I21.4 - Non-ST elevation (NSTEMI) myocardial infarction Category: Medical Plan: Advised good control of blood pressure, cholesterol and blood sugar. (4) Generalized anxiety disorder: Comment: Bradley Maradiaga seeing Q 2 months Code(s): F41.1 - Generalized anxiety disorder Category: Medical Plan: continue on current medication (5) Hypercholesterolemia: Code(s): E78.00 - Pure hypercholesterolemia, unspecified Category: Medical Plan: Avoid foods that are high in cholesterol such as red meat, fried foods, eggs and baked goods. Triglyceride goal of less than 150 and LDL goal of less than 70. Continue on rosuvastatin 40 (6) Hypertension: Code(s): I10 - Essential (primary) hypertension Category: Medical Qualifiers: Hypertension type: essential hypertension Qualified Code(s): I10 - Essential (primary) hypertension Plan: Continue on current blood pressure medication. Avoid salt intake and encourage healthy diet and regular exercise. Blood pressure low normal and patient is asymptomatic. Advised to continue to monitor her blood pressure at home and if dizzy or lightheaded present to ER. (7) Type 2 diabetes mellitus with hyperglycemia: Comment: [facility] Eye doctor Code(s): E11.65 - Type 2 diabetes mellitus with hyperglycemia Category: Medical Qualifiers: Diabetes mellitus fdc insulin use: without intermediate project manager use Qualified Code(s): E11.65 - Type 2 diabetes mellitus with hyperglycemia Plan: Decrease the amount of carbohydrates such as pasta, bread, rice, and potatoes and limit the amount of sweets. Although fruits are generally healthy they should be eaten in moderation as they are still high in sugar. Hemoglobin A1c goal of less than 7%. (8) Rib fractures: Code(s): S22.49XA - Multiple fractures of ribs, unspecified side, initial encounter for closed fracture Category: Medical Plan: Multiple right sided rib fractures continue with pain management. Advised patient to continue with incentive spirometry to prevent infection. Plan This note was constructed using voice recognition software. While every effort has been made to ensure accuracy and capital markets specialist, still areas may have been included sometimes these areas may affect the content or meeting of the given symptoms. Total time spent caring for the patient today was 30 minutes. This includes time spent before the visit reviewing the chart, time spent during the visit, and time spent after the visit and documentation.
[2024-05-30 16:26] VITALS: BP 100/60
== END 2024-05-30 16:45 | disposition home or self-care (01) ==
PROVIDERS: PCP Internal Medicine
DX: I73.9 Peripheral vascular disease, unspecified (principal); I21.4 Non-ST elevation (NSTEMI) myocardial infarction; E11.65 Type 2 diabetes mellitus with hyperglycemia; S32.020S Wedge compression fracture of second lumbar vertebra, sequela; F41.1 Generalized anxiety disorder; E78.00 Pure hypercholesterolemia, unspecified; I10 Essential (primary) hypertension; S22.49XA Multiple fractures of ribs, unspecified side, initial encounter for closed fracture

== ENCOUNTER → 2024-05-30 15:58 | Outpatient (BNVA) | payer MEDICARE, SELFPAY | PROVIDERS: PCP Internal Medicine | DX: S32.020S Wedge compression fracture of second lumbar vertebra, sequela (principal); I73.9 Peripheral vascular disease, unspecified; I21.4 Non-ST elevation (NSTEMI) myocardial infarction; F41.1 Generalized anxiety disorder; E78.00 Pure hypercholesterolemia, unspecified; I10 Essential (primary) hypertension; E11.65 Type 2 diabetes mellitus with hyperglycemia | CPT/HCPCS: 99212 ==

== ENCOUNTER 2024-06-15 14:18 | Outpatient (REF) | payer SELFPAY | END 2024-06-15 14:19 | disposition home or self-care (01) | LOC: HO.HAP 14:18 | PROVIDERS: Visit Provider Internal Medicine | DX: Z13.89 Encounter for screening for other disorder (principal) ==

== ENCOUNTER 2024-06-29 13:06 | Outpatient (AMB) | payer MEDICARE, MEDICAID, SELFPAY ==
[2024-06-29 13:15] VITALS: BP 98/64; BMI 19.0
--- NOTE | 2024-06-29 13:15 | MHC.PC.OV ---
Vital Signs 06/29/24 13:15 Height 5 ft 7 in Weight 121 lb 4.068 oz BMI 19.0 BP 98/64 Blood Pressure Location Lt brachial Position Sitting Intake Visit Reasons: follow up Intake Note: Patient here for a follow up Entry Level Web Developer Required: No Accompanied by: Self / Same As Patient Allergies No Known Allergies Allergy (Verified 06/29/24 13:18) Medication List - Last Reconciled 06/29/24 by Della Campos PA-C albuterol sulfate 90 mcg/actuation (Ventolin HFA) 2 puffs inhalation Q6H PRN alprazolam Bradley Umanafernando Cassidy Q 2 weeks aspirin (Adult Low Dose Aspirin) 81 mg PO DAILY atomoxetine 25 mg PO QAM atomoxetine 60 mg PO QAM blood sugar diagnostic As directed check blood sugars q.day blood-glucose meter As directed chlorthalidone 25 mg PO DAILY cholecalciferol (vitamin D3) 25 mcg PO DAILY cyanocobalamin (vitamin B-12) 1,000 mcg PO DAILY doxazosin 2 mg PO BEDTIME dulaglutide 1.5 mg (0.5 mL) subcut QWEEK 30 days duloxetine 60 mg PO DAILY duloxetine 30 mg PO DAILY eletriptan (Relpax) 40 mg PO .QD PRN empagliflozin 25 mg PO QAM ezetimibe (Zetia) 10 mg PO DAILY 30 days flash glucose scanning reader ([employer]Style Mich 2 [place]) As directed flash glucose sensor (FreeStyle Mich 2 Sensor kit) As directed hydroxyzine HCl 25 mg PO DAILY isosorbide mononitrate ER 30 mg PO DAILY lancets As directed lisinopril 20 mg PO DAILY loperamide 2 mg PO TID metformin ER 1,000 mg PO BID mupirocin 2% 1 appl topical 3XW naloxone 4 mg/actuation (Narcan) 4 mg intranasal Q3M PRN nebivolol 2.5 mg PO DAILY nitroglycerin 0.4 mg PO Every 5 minutes x3; omeprazole 20 mg PO DAILY PRN 90 days ondansetron 8 mg PO Q8H PRN oxycodone 15 mg PO Q6H PRN 30 days pen needle, diabetic As directed rosuvastatin 40 mg PO DAILY 30 days simethicone 125 mg PO TID PRN zolpidem 5 mg PO BEDTIME PRN Tobacco use date assessed: 09/17/23 Fall risk assessment: 1 Fall in past year Last assessed Fall Risk: 06/29/24 Dental Screening Dental Screen Date: 06/29/24 Did you have a dental visit in the last 12 months?: No Did you have a dental problem in the last 6 months where you did not have access to dental care?: No Was dental information given to patient?: Patient has dentist HPI follow up HPI Details 69-year-old female smoker with multiple medical problems including uncontrolled diabetes mellitus, hypertension, coronary artery disease, hypercholesterolemia, generalized anxiety disorder, history of wedge compression fracture of the lumbar vertebra on narcotic pain medication last seen May 2024 coming in for follow up.? Patient states she is feeling generally well. She states in the last several months she has been having sweet things including candy bars and carbs. She has no acute concerns today. [facility] Medical History Right iliac artery stenosis Osteoarthritis Hypercholesterolemia Coronary artery disease Attention deficit disorder Right radial fracture Pulmonary nodule Diabetic nephropathy Carotid stenosis Anxiety and depression Hypertension Type 2 diabetes mellitus with hyperglycemia Lumbar spondylosis Surgical History H/O endarterectomy Amputation toe Family History Father Stroke Mother Pancreatic cancer Son Sleep apnea Social History Housing: House Alcohol intake: current Alcohol intake frequency: holidays/special occasions only Alcohol type: wine Patient Tobacco Use Status: Former Tobacco user Tobacco use type: Cigarette Cigarettes Per Day: 5 e-Cigarette/Vaping Use: Never Used Second Hand Smoke Exposure: Yes service: No Current occupational status: unemployed Cognitive needs: No Hearing needs: No Vision needs: Yes Questionnaire Thrive Questionnaire Date Thrive assessed: 10/21/23 PATRIC-7 AMB Questionnaire PATRIC-7 Date PATRIC - 7 assessed: 08/12/23 Source: Developed by Drs. George Andrew, Marion Vasques, Milad Goncalves and colleagues, with an educational jaylen from [email or web address]. Review of Systems Const Denies body aches, Denies chills, Denies fever(s), Denies headache(s) and Denies poor appetite Eyes Reports no additional complaints ENT Denies dizziness and Denies headache(s) Card Denies chest pain, Denies irregular heart rhythm, Denies lightheadedness and Denies dyspnea Resp Denies cough and Denies dyspnea GI Denies nausea and Denies vomiting Reports no additional complaints Musc Reports no additional complaints and Denies abnormal gait Skin/Breast Reports system reviewed and no additional complaints, except as documented Neuro Denies abnormal gait, Denies dizziness and Denies headache(s) Psych Reports no additional complaints Physical exam (Primary Care) Vital Signs: Last Vital Signs BP 98/64 06/29/24 13:15 BMI result Body Mass Index 19.0 Tobacco/Smoking Status: Tobacco use Status Tobacco use date assessed 09/17/23 06/29/24 13:18 Patient Tobacco Use Status Former Tobacco user 06/29/24 13:18 Tobacco use type Cigarette 06/29/24 13:18 e-Cigarette/Vaping Use Never Used 06/29/24 13:18 Thrive Assessment: Date of Thrive Assessment Date Thrive assessed 10/21/23 06/29/24 13:18 Const General: cooperative, healthy appearing, comfortable and no acute distress Orientation/consciousness: patient oriented x3 HENMT Head: Yes normocephalic Ears: hearing grossly normal bilaterally General nose exam: Normal external nose present Eyes General: appearance normal, both eyes and all related structures Conjunctivae: conjunctivae normal Neck Neck: Yes full ROM and Yes no lymphadenopathy Resp Effort & Inspection: normal respiratory effort Auscultation: clear to auscultation bilaterally, no crackles, no rales, no rhonchi and no wheezes Cardio Rate: regular rate Rhythm: regular rhythm Skin General skin exam: no rashes or lesions noted Neuro General: patient oriented x3 Gait exam (Neuro): Normal gait present Extrem General: Yes normal to inspection, Yes full ROM and No edema Psych Affect: normal affect Attitude: cooperative Insight: Good insight present (Psych) Judgement: Good judgement present (Psych) Results AMB Hemoglobin A1c AMB Hemoglobin A1c 7.0 % Last Edit by EDSON Long on 06/29/24 13:24 Coding Level of Care Code Est Pt Level 4 (97919) Diagnoses Compression fracture of L2 vertebra, sequela S32.020S Encounter type: sequela Lumbar vertebra fracture level: L2 Essential hypertension I10 Hypertension type: essential hypertension Tobacco abuse Z72.0 Type 2 diabetes mellitus with hyperglycemia, without long-term current use of insulin E11.65 Diabetes mellitus intermediate insulin use: without tank terminal gauger use Hypercholesterolemia E78.00 Coronary artery disease involving [place] coronary artery of [place] heart without angina pectoris I25.10 Associated angina: without angina Coronary Disease-Associated Artery/Lesion type: [place] artery [place] vs. transplanted heart: [place] heart Assessment & Plan Assessment & Plan (1) Lumbar compression fracture: Comment: MRI 04/2024 mild L1 moderate L2 compression fracture mild progressed degenerative disease lumbar spine moderate right T12-L1 foraminal stenosis progressed moderate right L1-L2 foraminal stenosis Code(s): S32.000A - Wedge compression fracture of unspecified lumbar vertebra, initial encounter for closed fracture Category: Medical Qualifiers: Encounter type: sequela Lumbar vertebra fracture level: L2 Qualified Code(s): S32.020S - Wedge compression fracture of second lumbar vertebra, sequela Plan: On chronic pain medication prescription sent to Dr. Grady for refilled today. (2) Hypertension: Code(s): I10 - Essential (primary) hypertension Category: Medical Qualifiers: Hypertension type: essential hypertension Qualified Code(s): I10 - Essential (primary) hypertension Plan: Continue on current blood pressure medication. Avoid salt intake and encourage healthy diet and regular exercise. (3) Tobacco abuse: Comment: still smoking 06/2023 Code(s): Z72.0 - Tobacco use Category: Medical Plan: Smoking cigarettes and the use of tobacco can be harmful. We discussed the importance of stopping and options to aid in smoking cessation. (4) Type 2 diabetes mellitus with hyperglycemia: Comment: [facility] Eye doctor Code(s): E11.65 - Type 2 diabetes mellitus with hyperglycemia Category: Medical Qualifiers: Diabetes mellitus tank terminal gauger insulin use: without intermediate use Qualified Code(s): E11.65 - Type 2 diabetes mellitus with hyperglycemia Plan: Decrease the amount of carbohydrates such as pasta, bread, rice, and potatoes and limit the amount of sweets. Although fruits are generally healthy they should be eaten in moderation as they are still high in sugar. Hemoglobin A1c goal of less 7%. A1c 7% in the office today discussed with patient the importance of lowering this number in regards to her cardiac history. Patient understands the risk and would like to work on diet modification instead of increasing or adding medication to her regimen. Discussed we will follow up in 3 months for repeat A1c and if continues to be elevated we will need additional medication. Patient understands and agrees. (5) Hypercholesterolemia: Code(s): E78.00 - Pure hypercholesterolemia, unspecified Category: Medical Plan: Avoid foods that are high in cholesterol such as red meat, fried foods, eggs and baked goods. Triglyceride goal of less than 150 and LDL goal of less than 70. Blood work up-to-date and within goal (6) Coronary artery disease: Code(s): I25.10 - Atherosclerotic heart disease of [place] coronary artery without angina pectoris Category: Medical Qualifiers: Associated angina: without angina Coronary Disease-Associated Artery/Lesion type: [place] artery [place] vs. transplanted heart: [place] heart Qualified Code(s): I25.10 - Atherosclerotic heart disease of [place] coronary artery without angina pectoris Plan: Control blood pressure, blood sugars and cholesterol. Presently on aspirin. Referral placed to Cardiology as her mass communications professor is no longer active. Plan This note was constructed using voice recognition software. While every effort has been made to ensure accuracy and laborer salvage, still areas may have been included sometimes these areas may affect the content or meeting of the given symptoms. Total time spent caring for the patient today was 20 minutes. This includes time spent before the visit reviewing the chart, time spent during the visit, and time spent after the visit and documentation. Orders: Orders AMB Hemoglobin A1c Today E11.65 - Type 2 diabetes mellitus with hyperglycemia Referrals Cardiology Referral I21.4 - Non-ST elevation (NSTEMI) myocardial infarction, I25.10 - Atherosclerotic heart disease of [place] coronary artery without angina pectoris Medications: Refilled flash glucose sensor ([employer]Style Mich 2 Sensor kit) As directed 6 kits 3RF E11.65 - Type 2 diabetes mellitus with hyperglycemia nitroglycerin 0.4 mg PO Every 5 minutes x3; 25 tabs 0RF for angina I25.10 - Atherosclerotic heart disease of [place] coronary artery without angina pectoris
== END 2024-06-29 13:38 | disposition home or self-care (01) ==
PROVIDERS: PCP Internal Medicine
DX: S32.020S Wedge compression fracture of second lumbar vertebra, sequela (principal); I10 Essential (primary) hypertension; Z72.0 Tobacco use; E11.65 Type 2 diabetes mellitus with hyperglycemia; E78.00 Pure hypercholesterolemia, unspecified; I25.10 Atherosclerotic heart disease of native coronary artery without angina pectoris

== ENCOUNTER → 2024-06-29 13:06 | Outpatient (BNVA) | payer SELFPAY | PROVIDERS: PCP Internal Medicine | DX: I10 Essential (primary) hypertension (principal); E11.65 Type 2 diabetes mellitus with hyperglycemia; E78.00 Pure hypercholesterolemia, unspecified; I25.10 Atherosclerotic heart disease of native coronary artery without angina pectoris; S32.020S Wedge compression fracture of second lumbar vertebra, sequela; Z79.82 Long term (current) use of aspirin; Z72.0 Tobacco use | CPT/HCPCS: 83036; 99212 ==

== ENCOUNTER 2024-07-12 14:19 | Outpatient (REF) | payer MEDICARE, MEDICAID, SELFPAY | END 2024-07-12 14:20 | disposition home or self-care (01) | LOC: HO.HAP 14:19 | PROVIDERS: Visit Provider Internal Medicine | DX: Z46.1 Encounter for fitting and adjustment of hearing aid (principal); H90.3 Sensorineural hearing loss, bilateral | CPT/HCPCS: 92593 ==

== ENCOUNTER 2024-08-04 16:00 | Outpatient (AMB) | payer MEDICARE, MEDICAID, SELFPAY ==
--- NOTE | 2024-08-04 16:05 | A.OFFPC_ITS ---
Vital Signs 08/04/24 16:07 Height 5 ft 7 in Weight 124 lb BMI 19.4 BP 130/60 Blood Pressure Location Lt brachial Position Sitting Pulse 99 Pulse Source Pulse Oximeter Temp 97.3 F Temp Source Skin Pulse Oximetry (%) 98 Oxygen Delivery Method Room Air Intake Visit Reasons: med f/u Intake Note: Patient is here to follow up on med review. Pharmacy Analyst Required: No Electrical Engineering Draftsperson: Not Required per policy Accompanied by: Self / Same As Patient Allergies No Known Allergies Allergy (Verified 08/04/24 16:07) Tobacco use date assessed: 08/04/24 Fall risk assessment: No Falls in past year Last assessed Fall Risk: 08/04/24 Dental Screening Dental Screen Date: 08/04/24 Did you have a dental visit in the last 12 months?: Yes Did you have a dental problem in the last 6 months where you did not have access to dental care?: No Was dental information given to patient?: Patient has dentist HPI med f/u HPI Details The patient is a 69 year old female presenting with concerns regarding rib fractures and management of coronary artery disease. The rib fractures, involving ribs six to eight, occurred as a result of a recent incident, leading to ongoing significant pain. Despite this, the patient reports persistent pain, which impacts his daily activities. He has started physical therapy but requested a CT scan to guide the therapeutic approach and prevent further injury. The patient has a noteworthy history of coronary artery disease and recently experienced a cdk-BU-prbhhztcz myocardial infarction (NSTEMI) in April 2024. He has not engaged with cardiology follow-up despite elevated risk factors including uncontrolled diabetes mellitus type 2 with the most recent Hemoglobin A1c at 7%, and ongoing tobacco use, limited to one to three cigarettes per day after reduction. Cholesterol management appears satisfactory with a recent level of 46, yet lifestyle modification, particularly smoking cessation, remains imperative given his CAD diagnosis. The patient's mother had a history of pancreatic pathology, contributing to his concerns about the pancreatic lesion identified previously. Despite having a lesion, detailed medical notes regarding this were not available during the visit. FORMERLY [facility], [facility]–1983 Medical History (Updated 08/04/24 @ 16:32 by Diandra Grady MD) Right iliac artery stenosis Osteoarthritis Hypercholesterolemia Coronary artery disease Attention deficit disorder Right radial fracture Pulmonary nodule Diabetic nephropathy Carotid stenosis Anxiety and depression Hypertension Type 2 diabetes mellitus with hyperglycemia Lumbar spondylosis Surgical History (Updated 08/04/24 @ 16:12 by EDSON Beckwith) History of tooth extraction H/O endarterectomy Amputation toe Family History Father Stroke Mother Pancreatic cancer Son Sleep apnea Social History Housing: House Alcohol intake: current Alcohol intake frequency: holidays/special occasions only Alcohol type: wine Patient Tobacco Use Status: Current everyday Tobacco user Tobacco use type: Cigarette Cigarette Packs Per Day: 0.25 Cigarettes Per Day: 3 e-Cigarette/Vaping Use: Never Used Second Hand Smoke Exposure: Yes service: No Current occupational status: unemployed Cognitive needs: No Hearing needs: No Vision needs: Yes Questionnaire PHQ-9 Over the last 2 weeks, how often have you been bothered by any of the following problems? 1. Little interest or pleasure in doing things: not at all 2. Feeling down, depressed, or hopeless: not at all 3. Trouble falling or staying asleep, or sleeping too much: not at all 4. Feeling tired or having little energy: not at all 5. Poor appetite or overeating: not at all 6. Feeling bad about yourself - or that you are a failure or have let yourself or your family down: not at all 7. Trouble concentrating on things, such as reading the newspaper or watching television: not at all 8. Moving or speaking so slowly that other people could have noticed. Or the opposite - being so fidgety or restless that you have been moving around a lot more than usual: not at all 9. Thoughts that you would be better off or of hurting yourself in some way: not at all Total score: 0 Depression Screening Interpretation: Negative Depression Screening Done: Yes Source: Developed by Drs. George Andrew, Marion Vasques, Milad Goncalves and colleagues, with an educational jaylen from [email or web address]. Thrive Questionnaire Date Thrive assessed: 08/04/24 I am a: Patient What is your living situation today?: I have a steady place to live Within the past 12 months, did the food you bought not last and you didn't have the money to get more?: Never true Within the past 12 months, did you worry whether your food would run out before you got money to buy more?: Never true Do you have trouble paying for medicines?: No Do you have trouble getting transportation to medical appointments?: No Do you have trouble paying your heating and electricity bill?: No Do you have trouble taking care of your child, family member or friend?: No Do you have trouble with day-to-day activities such as bathing, preparing meals, shopping, managing finances, etc.?: No Are you currently unemployed and looking for a job?: No Are you interested in more education?: No Please select the resources that you would like help with: None Currently or been in a relationship where the following occur: No concerns reported THRIVE Score: 0 AUDIT C Alcohol Use Questionnaire (AUDIT-C) 1. How often do you have a drink containing alcohol?: Monthly or less 2. How many drinks containing alcohol do you have on a typical day when you are drinking?: 1 or 2 Total Score: 1 PATRIC-7 AMB Questionnaire PATRIC-7 Date PATRIC - 7 assessed: 08/04/24 Feeling nervous, anxious, or on edge: 0 = Not at all Not being able to stop or control worryin = Not at all Worrying too much about different things: 0 = Not at all Trouble relaxin = Not at all Being so restless that it is hard to sit still: 0 = Not at all Becoming easily annoyed or irritable: 0 = Not at all Feeling afraid as if something awful might happen: 0 = Not at all Total PATRIC-7 score (0-4 normal; 5-9 mild; 10-14 moderate; 15-21 severe): 0 Source: Developed by Drs. George Andrew, Marion Vasques, Milad Goncalves and colleagues, with an educational jaylen from [email or web address]. Physical exam (Primary Care) Vital Signs: Last Vital Signs Temp 97.3 F 08/04/24 16:07 Pulse 99 08/04/24 16:07 BP 130/60 08/04/24 16:07 Pulse Ox 98 08/04/24 16:07 Oxygen Delivery Method Room Air 08/04/24 16:07 BMI result Body Mass Index 19.4 Tobacco/Smoking Status: Tobacco use Status Tobacco use date assessed 08/04/24 08/04/24 16:13 Patient Tobacco Use Status Current everyday Tobacco 08/04/24 16:13 Tobacco use type Cigarette 08/04/24 16:06 e-Cigarette/Vaping Use Never Used 08/04/24 16:06 PHQ-9: PHQ-9 Score PHQ-9: Total score 0 08/04/24 16:13 Depression Screening Interpretation: Negative Thrive Assessment: Date of Thrive Assessment Date Thrive assessed 08/04/24 08/04/24 16:13 Currently or been in a relationship where the following occur: No concerns reported Const General: alert; No acute distress Eyes Conjunctivae: conjunctivae normal Resp Auscultation: clear to auscultation bilaterally Cardio Rate: regular rate Rhythm: regular rhythm GI Inspection: Yes normal to inspection Extrem General: Yes normal to inspection and No edema Coding Level of Care Code Est Pt Level 4 (39481) Complex EM visit Add On G2211 Diagnoses Tobacco abuse Z72.0 Type 2 diabetes mellitus with hyperglycemia, without long-term current use of insulin E11.65 Diabetes mellitus care home insulin use: without reversing mill roller use Essential hypertension I10 Hypertension type: essential hypertension Hypercholesterolemia E78.00 Coronary artery disease involving [place] coronary artery of [place] heart without angina pectoris I25.10 Coronary Disease-Associated Artery/Lesion type: [place] artery [place] vs. transplanted heart: [place] heart Associated angina: without angina Generalized anxiety disorder F41.1 Closed wedge compression fracture of L2 vertebra, sequela S32.020S Encounter type: sequela Lumbar vertebra fracture level: L2 Fracture type: closed Pancreatic mass K86.89 Assessment & Plan Assessment & Plan (1) Tobacco abuse: Comment: still smoking 06/2023 Code(s): Z72.0 - Tobacco use Category: Medical Plan: Patient is still smoking 1-3 a day and advised strongly to stop! (2) Type 2 diabetes mellitus with hyperglycemia: Comment: [facility] Code(s): E11.65 - Type 2 diabetes mellitus with hyperglycemia Category: Medical Qualifiers: Diabetes mellitus reversing mill roller insulin use: without care home use Qualified Code(s): E11.65 - Type 2 diabetes mellitus with hyperglycemia Plan: Decrease the amount of carbohydrate intake, pasta, bread, rice and potatoes are all sugar and that is aside from all the sweet stuff, remember that fruits are good but they are Sweet also. Hemoglobin A1c goal of less than 7.0 but discussed with the patient that the normal is below 5.7. Patient is on metformin a 1000 mg twice a day Jardiance 25 mg once a day Trulicity at 1.5 mg once a week (3) Hypertension: Code(s): I10 - Essential (primary) hypertension Category: Medical Qualifiers: Hypertension type: essential hypertension Qualified Code(s): I10 - Essential (primary) hypertension Plan: Continue with blood pressure medication. Decrease salt intake and exercise has isosorbide mononitrate lisinopril 20 nebivolol 2.5 mg once a day (4) Hypercholesterolemia: Code(s): E78.00 - Pure hypercholesterolemia, unspecified Category: Medical Plan: Avoid fried foods, chicken skin, eggs, butter margarine, pastries and meat. Be it pork or beef they have a lot of cholesterol LDL goal of less than 70 and triglyceride of less than 150 on rosuvastatin 40 mg once a day (5) Coronary artery disease: Code(s): I25.10 - Atherosclerotic heart disease of [place] coronary artery without angina pectoris Category: Medical Qualifiers: Coronary Disease-Associated Artery/Lesion type: [place] artery [place] vs. transplanted heart: [place] heart Associated angina: without angina Qualified Code(s): I25.10 - Atherosclerotic heart disease of [place] coronary artery without angina pectoris Plan: Control the cholesterol, weight, blood pressure, diabetes (6) Generalized anxiety disorder: Comment: [facility] seeing Q 2 months Code(s): F41.1 - Generalized anxiety disorder Category: Medical Plan: Continue with present medication (7) Wedge compression fracture of lumbar vertebra: Comment: May 2022 MR L1 and L2 Code(s): S32.000A - Wedge compression fracture of unspecified lumbar vertebra, initial encounter for closed fracture Category: Medical Qualifiers: Encounter type: sequela Lumbar vertebra fracture level: L2 Fracture type: closed Qualified Code(s): S32.020S - Wedge compression fracture of second lumbar vertebra, sequela Plan: Narcotic pain meds: Is being prescribed with the understanding that these medications are potentially addictive and should be used only when absolutely necessary and must always be secured. Any remaining pills should be safely disposed off appropriately. Patient is advised that narcotics can impaired judgment and one should not drive or operate heavy machinery while taking these medications. Never share these medications with anybody and do not leave them unattended. They will not be replaced under any circumstances. (8) Pancreatic mass: Comment: [facility] Code(s): K86.89 - Other specified diseases of pancreas Category: Medical Plan: Incidentally found in the CT scan done in [facility]. Will request for an MRI. Plan 1. 7: - Optimize lipid management with continued dietary restrictions and potential pharmacotherapy adjustments as clinically warranted. - Facilitate expeditious cardiology referral and follow-up for comprehensive CAD management, including monitoring and potentially re-evaluating anti-anginal and cardioprotective medication efficacy. - Pancreatic lesion requires further evaluation with potential imaging follow-up pending available family history and prior diagnostics. - Ensure appropriate utilization of analgesics for rib fracture-related pain relief and consider further diagnostic imaging (CT scan) for assessing the current fracture position to guide physical therapy interventions. - Maintain proactive communication to ensure future follow-up compliance and necessary referrals for all discussed concerns. - Discuss and schedule influenza, RSV vaccinations for current preventive care given current seasonal flu prevalence. - Reinforce diligent hygiene practices to reduce potential respiratory illness transmission, considering the current infectious season intensity. Orders: Orders MR abdomen wo/w con Today K86.89 - Other specified diseases of pancreas Creatinine Today K86.89 - Other specified diseases of pancreas Blood Urea Nitrogen Today K86.89 - Other specified diseases of pancreas
[2024-08-04 16:07] VITALS: BP 130/60; PULSE 99; TEMP 36.3; O2SAT 98; BMI 19.4
== END 2024-08-04 17:00 | disposition home or self-care (01) ==
PROVIDERS: PCP Internal Medicine; Visit Provider Internal Medicine
DX: Z72.0 Tobacco use (principal); E11.65 Type 2 diabetes mellitus with hyperglycemia; I10 Essential (primary) hypertension; E78.00 Pure hypercholesterolemia, unspecified; I25.10 Atherosclerotic heart disease of native coronary artery without angina pectoris; F41.1 Generalized anxiety disorder; S32.020S Wedge compression fracture of second lumbar vertebra, sequela; K86.89 Other specified diseases of pancreas

== ENCOUNTER → 2024-08-04 16:00 | Outpatient (BNVA) | payer MEDICARE, MEDICAID, SELFPAY | PROVIDERS: PCP Internal Medicine; Visit Provider Internal Medicine | DX: E11.65 Type 2 diabetes mellitus with hyperglycemia (principal); E78.00 Pure hypercholesterolemia, unspecified; I10 Essential (primary) hypertension; Z79.4 Long term (current) use of insulin; I25.10 Atherosclerotic heart disease of native coronary artery without angina pectoris; F41.1 Generalized anxiety disorder; K86.89 Other specified diseases of pancreas; S32.020S Wedge compression fracture of second lumbar vertebra, sequela | CPT/HCPCS: 99212 ==

== ENCOUNTER → 2024-08-17 13:10 | Outpatient (BNV) | payer MEDICARE, MEDICAID, SELFPAY | PROVIDERS: PCP Internal Medicine; Visit Provider Radiology Diagnostic Radiology | DX: K86.89 Other specified diseases of pancreas (principal); N28.1 Cyst of kidney, acquired | CPT/HCPCS: 74183 ==

== ENCOUNTER 2024-09-05 15:54 | Outpatient (AMB) | payer MEDICARE, MEDICAID, SELFPAY ==
--- NOTE | 2024-09-05 16:01 | MHC.PC.OV ---
Vital Signs 09/05/24 16:07 Height 5 ft 7 in Weight 126 lb 8 oz BMI 19.8 BP 112/72 Blood Pressure Location Lt brachial Position Sitting Pulse 98 Pulse Source Pulse Oximeter Temp 97.1 F Temp Source Temporal Artery Scan Pulse Oximetry (%) 94 Oxygen Delivery Method Room Air Intake Visit Reasons: med f/u Intake Note: Patient is here to follow up on med review. Steamblaster Required: No Grinder And Honer Operator Automatic: Not Required per policy Accompanied by: Self / Same As Patient Allergies No Known Allergies Allergy (Verified 09/05/24 16:07) Tobacco use date assessed: 09/05/24 Fall risk assessment: No Falls in past year Last assessed Fall Risk: 09/05/24 Dental Screening Dental Screen Date: 08/04/24 HPI med f/u HPI Details blood work was told good. will see her This thursday History of Present Illness The patient is a 69-year-old female presenting with follow-up for a pancreatic mass previously identified incidentally. 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 The patient denies any previous symptoms related to pancreatic pathology. She has a significant family history concerning pancreatic cancer, having lost her mother to the disease, which raises her concern. The patient has managed her chronic Type 2 Diabetes Mellitus, maintaining a hemoglobin A1c of 7.0% as of June. Her Essential Hypertension and Coronary Artery Disease have been managed with a regimen including nevibolol, lisinopril, and isosorbide mononitrate. Additionally, her Hypercholesterolemia is controlled with rosuvastatin, achieving an LDL of 46 mg/dL. She has a history of a non-ST elevation myocardial infarction in April 2024 and currently remains on aspirin for cardiovascular protection. Health Maintenance - Encouraged smoking cessation to reduce cardiovascular and overall health risks. - Continued attention to cholesterol management, with an LDL cholesterol target of less than 70 mg/dL. - Advised nutritional support with consideration of a diabetic diet, potentially through a service like [employer]. - Recommended follow-up with gastroenterology for potential biopsy and further evaluation of the pancreatic mass. Social History - Smoker with an advised plan for smoking cessation. - Reports weakened physical strength and significant recent weight loss. - Expresses concern regarding the capability to prepare meals, showing interest in meal delivery services. - No known employment or housing concerns discussed. Review of Systems - General: Reports significant weight loss and weakness. - Neurological: Reports headaches and sleep disturbance. - Dermatological: Reports hair loss. - Ophthalmological: No recent eye exam noted, with difficulties finding a new mental health orderly. Physical Exam Results - Labs: Creatinine level was 4.2 mg/dL in March; hemoglobin A1c was 7.0% as of June; cholesterol LDL level was 46 mg/dL. - Imaging: MRI of August 18 showing probable side branch intraductal papillary mucinous neoplasm at the body-tail junction of the pancreas. Plan 1. 0% using current diabetes medications: - Initiate treatment for sleep disturbance potentially using medication to aid with sleep. - Blood work: repeat comprehensive blood work to monitor renal function and assess for any anemia or further abnormalities. Patient was informed and verbally consented to the use of an ambient scribe for clinic note documentation during this visit. Discussion Notes I explained the current understanding of the pancreatic mass and its likely benign nature but emphasized the importance of further evaluation and potential biopsy to rule out malignancy. We discussed management of her chronic conditions including diabetes, hypertension, and dyslipidemia. I advised strongly on smoking cessation to reduce ongoing cardiovascular and overall health risks. We discussed her recent weight loss and physical weakness, and I recommended considering meal delivery services with diabetic options, pending further nutritional support. Follow-up arrangements with gastroenterology were highlighted to determine appropriate biopsy options and monitoring of the pancreatic mass. Patient Instructions - Continue medications as prescribed for blood pressure, cholesterol, and diabetes management. - Attend scheduled follow-up with gastroenterology for further evaluation of pancreatic mass. - Consider meal delivery services with options catering to a diabetic diet. - Monitor blood glucose levels and maintain current A1c goal. - Plan for smoking cessation and seek support if needed. - Contact the healthcare provider if experiencing increased weakness, unexplained weight loss, or other concerning symptoms. [facility] Medical History (Updated 09/05/24 @ 16:43 by Diandra Grady MD) Right iliac artery stenosis Osteoarthritis Hypercholesterolemia Coronary artery disease Attention deficit disorder Right radial fracture Pulmonary nodule Diabetic nephropathy Carotid stenosis Anxiety and depression Hypertension Type 2 diabetes mellitus with hyperglycemia Lumbar spondylosis Surgical History History of tooth extraction H/O endarterectomy Amputation toe Family History Father Stroke Mother Pancreatic cancer Son Sleep apnea Social History Housing: House Alcohol intake: current Alcohol intake frequency: holidays/special occasions only Alcohol type: wine Patient Tobacco Use Status: Current everyday Tobacco user Tobacco use type: Cigarette Cigarette Packs Per Day: 0.25 Cigarettes Per Day: 3 e-Cigarette/Vaping Use: Never Used Second Hand Smoke Exposure: Yes service: No Current occupational status: unemployed Cognitive needs: No Hearing needs: No Vision needs: Yes Questionnaire Thrive Questionnaire Date Thrive assessed: 08/04/24 PATRIC-7 AMB Questionnaire PATRIC-7 Date PATRIC - 7 assessed: 08/04/24 Source: Developed by Drs. George Andrew, Marion Vasques, Milad Goncalves and colleagues, with an educational jaylen from [employer]. Physical exam (Primary Care) Vital Signs: Last Vital Signs Temp 97.1 F 09/05/24 16:07 Pulse 98 09/05/24 16:07 BP 112/72 09/05/24 16:07 Pulse Ox 94 09/05/24 16:07 Oxygen Delivery Method Room Air 09/05/24 16:07 BMI result Body Mass Index 19.8 Tobacco/Smoking Status: Tobacco use Status Tobacco use date assessed 09/05/24 09/05/24 16:12 Patient Tobacco Use Status Current everyday Tobacco 09/05/24 16:01 Tobacco use type Cigarette 09/05/24 16:01 e-Cigarette/Vaping Use Never Used 09/05/24 16:01 Thrive Assessment: Date of Thrive Assessment Date Thrive assessed 08/04/24 09/05/24 16:01 Const General: alert; No acute distress Eyes Conjunctivae: conjunctivae normal Resp Auscultation: clear to auscultation bilaterally Cardio Rate: regular rate Rhythm: regular rhythm GI Inspection: Yes normal to inspection Extrem General: Yes normal to inspection and No edema Coding Level of Care Code Est Pt Level 4 (14582) Complex EM visit Add On G2211 Diagnoses Pancreatic mass K86.89 Compression fracture of L2 vertebra, sequela S32.020S Encounter type: sequela Lumbar vertebra fracture level: L2 Peripheral arterial disease I73.9 Tobacco abuse Z72.0 Coronary artery disease involving [place] coronary artery of [place] heart without angina pectoris I25.10 Associated angina: without angina Coronary Disease-Associated Artery/Lesion type: [place] artery [place] vs. transplanted heart: [place] heart Hypercholesterolemia E78.00 Essential hypertension I10 Hypertension type: essential hypertension Type 2 diabetes mellitus with hyperglycemia, without long-term current use of insulin E11.65 Diabetes mellitus rn long term care insulin use: without shelter use Headache R51.9 Assessment & Plan Assessment & Plan (1) Pancreatic mass: Comment: [facility] Code(s): K86.89 - Other specified diseases of pancreas Category: Medical Plan: Patient has been seen by Gastroenterology. (2) Lumbar compression fracture: Comment: MRI 04/2024 mild L1 moderate L2 compression fracture mild progressed degenerative disease lumbar spine moderate right T12-L1 foraminal stenosis progressed moderate right L1-L2 foraminal stenosis Code(s): S32.000A - Wedge compression fracture of unspecified lumbar vertebra, initial encounter for closed fracture Category: Medical Qualifiers: Encounter type: sequela Lumbar vertebra fracture level: L2 Qualified Code(s): S32.020S - Wedge compression fracture of second lumbar vertebra, sequela Plan: Narcotic pain meds: Is being prescribed with the understanding that these medications are potentially addictive and should be used only when absolutely necessary and must always be secured. Any remaining pills should be safely disposed off appropriately. Patient is advised that narcotics can impaired judgment and one should not drive or operate heavy machinery while taking these medications. Never share these medications with anybody and do not leave them unattended. They will not be replaced under any circumstances. (3) Peripheral arterial disease: Comment: April 2024 CT angio short segment severe stenosis distal right superficial femoral artery focal moderate to severe stenosis mid right popliteal artery left lower extremity multifocal moderate stenosis left superficial femoral artery short segment severe stenosis in the proximal and mid left popliteal artery patent 3 vessel runoff. Code(s): I73.9 - Peripheral vascular disease, unspecified Category: Medical Plan: Patient is advised strongly to stop smoking. (4) Tobacco abuse: Comment: still smoking 06/2023 Code(s): Z72.0 - Tobacco use Category: Medical Plan: Patient is advised strongly to stop smoking (5) Coronary artery disease: Code(s): I25.10 - Atherosclerotic heart disease of [place] coronary artery without angina pectoris Category: Medical Qualifiers: Associated angina: without angina Coronary Disease-Associated Artery/Lesion type: [place] artery [place] vs. transplanted heart: [place] heart Qualified Code(s): I25.10 - Atherosclerotic heart disease of [place] coronary artery without angina pectoris Plan: Control the cholesterol, weight, blood pressure, diabetes continue with aspirin 81 mg once a day (6) Hypercholesterolemia: Code(s): E78.00 - Pure hypercholesterolemia, unspecified Category: Medical Plan: Avoid fried foods, chicken skin, eggs, butter margarine, pastries and meat. Be it pork or beef they have a lot of cholesterol LDL goal of less than 70 on rosuvastatin 40 mg once a day (7) Hypertension: Code(s): I10 - Essential (primary) hypertension Category: Medical Qualifiers: Hypertension type: essential hypertension Qualified Code(s): I10 - Essential (primary) hypertension Plan: Continue with blood pressure medication. Decrease salt intake and exercise continue with nebivolol lisinopril isosorbide mononitrate, chlorthalidone (8) Type 2 diabetes mellitus with hyperglycemia: Comment: [facility] Code(s): E11.65 - Type 2 diabetes mellitus with hyperglycemia Category: Medical Qualifiers: Diabetes mellitus rn long term care insulin use: without rn long term care use Qualified Code(s): E11.65 - Type 2 diabetes mellitus with hyperglycemia Plan: Decrease the amount of carbohydrate intake, pasta, bread, rice and potatoes are all sugar and that is aside from all the sweet stuff, remember that fruits are good but they are Sweet also. Hemoglobin A1c goal of less than 7.0 patient takes Trulicity Jardiance metformin (9) Headache: Code(s): R51.9 - Headache, unspecified Category: Medical Plan History of Present Illness The patient is a 69-year-old female presenting with follow-up for a pancreatic mass previously identified incidentally. 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 The patient denies any previous symptoms related to pancreatic pathology. She has a significant family history concerning pancreatic cancer, having lost her mother to the disease, which raises her concern. The patient has managed her chronic Type 2 Diabetes Mellitus, maintaining a hemoglobin A1c of 7.0% as of June. Her Essential Hypertension and Coronary Artery Disease have been managed with a regimen including nevibolol, lisinopril, and isosorbide mononitrate. Additionally, her Hypercholesterolemia is controlled with rosuvastatin, achieving an LDL of 46 mg/dL. She has a history of a non-ST elevation myocardial infarction in April 2024 and currently remains on aspirin for cardiovascular protection. Health Maintenance - Encouraged smoking cessation to reduce cardiovascular and overall health risks. - Continued attention to cholesterol management, with an LDL cholesterol target of less than 70 mg/dL. - Advised nutritional support with consideration of a diabetic diet, potentially through a service like [employer]. - Recommended follow-up with gastroenterology for potential biopsy and further evaluation of the pancreatic mass. Social History - Smoker with an advised plan for smoking cessation. - Reports weakened physical strength and significant recent weight loss. - Expresses concern regarding the capability to prepare meals, showing interest in meal delivery services. - No known employment or housing concerns discussed. Review of Systems - General: Reports significant weight loss and weakness. - Neurological: Reports headaches and sleep disturbance. - Dermatological: Reports hair loss. - Ophthalmological: No recent eye exam noted, with difficulties finding a new mental health orderly. Physical Exam Results - Labs: Creatinine level was 4.2 mg/dL in March; hemoglobin A1c was 7.0% as of June; cholesterol LDL level was 46 mg/dL. - Imaging: MRI of August 18 showing probable side branch intraductal papillary mucinous neoplasm at the body-tail junction of the pancreas. Plan 1. 0% using current diabetes medications: - Initiate treatment for sleep disturbance potentially using medication to aid with sleep. - Blood work: repeat comprehensive blood work to monitor renal function and assess for any anemia or further abnormalities. Patient was informed and verbally consented to the use of an ambient scribe for clinic note documentation during this visit. Discussion Notes I explained the current understanding of the pancreatic mass and its likely benign nature but emphasized the importance of further evaluation and potential biopsy to rule out malignancy. We discussed management of her chronic conditions including diabetes, hypertension, and dyslipidemia. I advised strongly on smoking cessation to reduce ongoing cardiovascular and overall health risks. We discussed her recent weight loss and physical weakness, and I recommended considering meal delivery services with diabetic options, pending further nutritional support. Follow-up arrangements with gastroenterology were highlighted to determine appropriate biopsy options and monitoring of the pancreatic mass. Patient Instructions - Continue medications as prescribed for blood pressure, cholesterol, and diabetes management. - Attend scheduled follow-up with gastroenterology for further evaluation of pancreatic mass. - Consider meal delivery services with options catering to a diabetic diet. - Monitor blood glucose levels and maintain current A1c goal. - Plan for smoking cessation and seek support if needed. - Contact the healthcare provider if experiencing increased weakness, unexplained weight loss, or other concerning symptoms. Orders: Orders Complete Blood Count Auto Diff Today E11.65 - Type 2 diabetes mellitus with hyperglycemia Hemoglobin A1c Today E11.65 - Type 2 diabetes mellitus with hyperglycemia Free T4 (Free Thyroxine) Today E11.65 - Type 2 diabetes mellitus with hyperglycemia Comprehensive Met. Panel Today E11.65 - Type 2 diabetes mellitus with hyperglycemia Thyroid Stimulating Hormone Today E11.65 - Type 2 diabetes mellitus with hyperglycemia Vitamin B12 and Folate Today E11.65 - Type 2 diabetes mellitus with hyperglycemia Vitamin D 25-OH Total Today E11.65 - Type 2 diabetes mellitus with hyperglycemia Creatinine Urine Today E11.65 - Type 2 diabetes mellitus with hyperglycemia Lipid Panel Today E11.65 - Type 2 diabetes mellitus with hyperglycemia, E78.00 - Pure hypercholesterolemia, unspecified Microalbumin, Random (w Creat) Today E11.65 - Type 2 diabetes mellitus with hyperglycemia Referrals Podiatry Referral E11.65 - Type 2 diabetes mellitus with hyperglycemia Ophthalmology Referral E11.65 - Type 2 diabetes mellitus with hyperglycemia Medications: New trazodone 50 mg PO BEDTIME PRN 30 tabs 2RF sleep R51.9 - Headache, unspecified Discontinued zolpidem Discontinued Reason: Patient no longer taking 5 mg PO BEDTIME PRN 15 tabs 1RF sleep G47.00 - Insomnia, unspecified
[2024-09-05 16:07] VITALS: BP 112/72; PULSE 98; TEMP 36.2; O2SAT 94; BMI 19.8
--- OUTSIDE RECORDS SUMMARY | 2024-09-05 18:08 | XMS_ITS | Clinical Summary ---
Author Organization [facility] Facility Address [address] [place] [id number] Care Team Providers Care Lithographic Plate Maker Name Role Phone Unavailable Primary Care Provider Unavailabl e Allergies No known active allergies Medications ALPRAZolam (XANAX) 2 MG tablet Take 1 tablet by mouth 3 (three) times a day if needed Active atomoxetine (STRATTERA) 40 MG capsule Comments: Filled Date: May 26 2016 12:00AM Duration: 30 6 Active cholecalciferol (VITAMIN D-3) 25 MCG (1000 UT) capsule Take 1 capsule by mouth 1 (one) time each day 7 Active coenzyme Q-10 100 MG capsule Take 2 capsules by mouth 1 (one) time each day Active DULoxetine (CYMBALTA) [address] capsule Take 1 capsule by mouth 1 (one) time each day Active isosorbide mononitrate (IMDUR) 30 MG 24 hr tablet Active liraglutide (Victoza) 18 MG/3ML injection Inject pen injector as needed Active nitroglycerin (NITROSTAT) 0.[address] 1 tablet under the tongue 1 (one) time 5 Active oxyCODONE (ROXICODONE) 15 MG immediate release tablet Take 1 tablet by mouth 3 (three) times a day Active Chantix Continuing Month Arturo 1 MG tablet Take 1 mg by mouth 2 (two) times a day 1 Active omeprazole (PriLOSEC) [address] capsule TAKE 1 CAPSULE BY MOUTH TWICE DAILY DIRECTED 1 Active metFORMIN XR (GLUCOPHAGE-XR) 500 MG 24 hr tablet 500 mg 1 (one) time each day with dinner 2 tabs 0 Active DULoxetine (CYMBALTA) [address] capsule TAKE 1 CAPSULE BY MOUTH EVERY DAY NEEDED FOR DEPRESSION IN ADDITION TO 60 MG CAPSULE 1 Active Jardiance 25 MG tablet 1 Active hydroCHLOROthiaz zenon (HYDRODIURIL) 50 MG tablet Take 50 mg by mouth 1 (one) time each day in the morning 1 Active rosuvastatin (CRESTOR) 40 MG tablet Active lisinopril 20 MG tablet Take 20 mg by mouth 1 (one) time each day Active Active Problems Problem Noted Date Diagnosed Date Renovascular hypertension 04/06/2023 Essential hypertension 09/23/2020 Hyperlipidemia 09/23/2020 Labile hypertension due to being in a clinical e nvironment 09/23/2020 Low blood pressure 09/23/2020 Proteinuria 09/23/2020 Renal disorder due to type 2 diabetes mellitus 0 09/23/2020 Resolved Problems Problem Noted Date Diagnosed Date Resolved Date Chronic kidney disease stage 3 09/23/2020 09/24/2020 Renal artery stenosis 09/23/20202020 Family History Medical History Relation Comments Heart disease Father Hypertension Father Cancer Mother pancreatic Heart disease Mother Hypertension Mother Kidney disease Sibling Relation Status Comments Father Mother Sibling Social History Tobacco Use Types Packs/Day Years Used Date Smoking Tobacco: Smoker, Current Status Unknown Alcohol Use Standard Drinks/Week Comments Yes 0 (1 standard drink = 0.6 oz pure alcohol) Alcoholic Drinks/day: Occasional social drink Comments Unknown Sex and Gender Information Value Date Recorded Sex Assigned at Not on file Legal Sex Female 4:41 PM EST Gender Identity Not on file Sexual Orientation Not on file Last Filed Vital Signs Vital Sign Reading Time Taken Comments Blood Pressure 142/80 01/05/2023 1:40 PM EDT Pulse 90 01/05/2023 1:40 PM EDT Temperature - - Respiratory Rate - - Oxygen Saturation 99% 01/05/2023 1:40 PM EDT Inhaled Oxygen Concentration - - Weight 62.9 kg (138 lb 9.6 oz) 01/05/2023 1:40 P M EDT Height 167.6 cm (5' 6 ) 01/05/2023 1:40 PM EDT Body Mass Index 22.37 01/05/2023 1:40 PM EDT Plan of Treatment Health Maintenance Due Date Last Done Comments Breast Cancer Screening 1955 Colorectal Cancer Screening: Annual FOBT 2002 Colorectal Cancer Screening: Colonoscopy 2002 Colorectal Cancer Screening: Sigmoidoscopy 2002 Pneumococcal Vaccine: 65+ Ye ars (2 of 2 - PCV) 04/17/2017 04/17/2016 Diabetes: Hemoglobin A1C 08/12/2020 Diabetes: Ophthalmology Exam 08/12/2020 Diabetes: Pedal Pulse Checked 08/12/2020 Diabetes: Sensory Foot Exam 08/12/2020 Diabetes: Visual Foot Exam 08/12/2020 Influenza Vaccine (#1) 2024 Hepatitis B Vaccine Aged Out No longe r eligible based on patient's age to complete this topic Insurance [place]
--- OUTSIDE RECORDS SUMMARY | 2024-09-05 18:08 | XMS_ITS | Encounter Summary ---
Author Organization [facility] Address [address] [place] [address] Care Team Providers Care Handmade Tile Artist Name Role Phone Diandra Grady MD Primary Care Provider [phone] Reason for Visit * Reason Onset Date Comments medication question 09/02/2024 Encounter Details Date Type Department Care Team (Late st Contact Info) Description 09/02/2024 Telephone Gastroenterology - [address] [place] [phone] Brandie Bales MD [address] [place], [place] [phone] medication question Social History Tobacco Use Types Packs/Day Years Used Date Smoking Tobacco: Former Cigarettes Smokeless Tobacco: Never Comments Unknown Sex and Gender Information Value Date Recorded Sex Assigned at Not on file Legal Sex Female 3:19 PM EST Gender Identity Not on file Sexual Orientation Not on file documented as of this encounter Progress Notes * Angelica Monsalve - 09/02/2024 1:19 PM EST Pt is currently taking loperamide (IMODIUM) for diarrhea and feels like medication is not working enough, would like to see if theres anything stronger? documented in this encounter Plan of Treatment Upcoming Encounters Date Type Department Care Team (Late st Contact Info) Description 09/08/2024 3:00 PM EST Office Visit Gastroenterology - [address] [address] [facility] [address] [place] [phone] Eryn Lauren, COLOR PASTE MIXING SUPERVISOR [address] [place] [id number] documented as of this encounter Visit Diagnoses Not on filedocumented in this encounter Care Teams Handmade Tile Artist Relationship Specialty Start Date End Date Diandra Grady MD [address] [place] [address] [address] [facility] [place] [address] PCP - General Internal Medicine 07/15/21 documented as of this encounter
--- OUTSIDE RECORDS SUMMARY | 2024-09-05 18:08 | XMS_ITS | Encounter Summary ---
Author Organization [facility] Address [address] [place] [address] Care Team Providers Care Sign Installer Name Role Phone Maren Martel JUDY Primary Care Provider [phone] Reason for Visit * Reason Comments Removable Prosthetics Encounter Details Date Type Department Care Team (Late st Contact Info) Description 09/02/2024 3:40 PM EST Office Visit [facility] [address] [place] [phone] Maren Martel, JUDY [address] [place], [place] [phone] Missing teeth, acquired (Primary Dx) Social History Tobacco Use Types Packs/Day Years Used Date Smoking Tobacco: Every Day Cigarettes Smokeless Tobacco: Never Social Connections Answer Date Recorded Connectedness 0 04/06/2024 Financial Resource Strain Answer Date R ecorded Financial Resource Strain 0 2023 Stress Answer Date Recorded Stress 0 04/06/2024 Physical Activity Answer Date Recorded Physical Activity 0 04/06/2024 Food Insecurity Answer Date Recorded Food 0 04/07/2024 Transportation Needs Answer Date Record ed Transportation 0 04/06/2024 Housing Stability Answer Date Recorded Housing 0 04/06/2024 Safety and Environment Answer Date Manuel rded Safety 0 04/06/2024 Utilities Answer Date Recorded Utilities 0 04/06/2024 Employment Answer Date Recorded Stress 0 04/06/2024 Comments Unknown Sex and Gender Information Value Date Recorded Sex Assigned at Not on file Legal Sex Female 8:49 AM PDT Gender Identity Not on file Sexual Orientation Not on file documented as of this encounter Last Filed Vital Signs Vital Sign Reading Time Taken Comments Blood Pressure 141/84 09/02/2024 3:40 PM EST Pulse 102 09/02/2024 3:40 PM EST Temperature - - Respiratory Rate - - Oxygen Saturation - - Inhaled Oxygen Concentration - - Weight - - Height - - Body Mass Index - - documented in this encounter Progress Notes * Maren Martel DMD - 09/02/2024 4:07 PM EST Dental Removable - Impressions SUBJECTIVE: Lena Bill, 69 year old female, presents alone for Maxillary Complete Denture and Mandibular Complete Denture Final Impressions. Turret Lathe Operator: No Chief Complaint Patient presents with Removable Prosthetics OBJECTIVE: RMHx: Yes Vitals: Vitals: 09/02/24 1540 BP: (!) 141/84 Pulse: (!) 102 ASSESSMENT: Dx: K08.109 Missing teeth, acquired (primary encounter diagnosis) Dx Details (Clinical Decision-Making): Pt had extractions of remaining mandibular teeth 30 days ago. Extractions site is healing well, but will still undergo alveolar bone resorption for the next 6 months. Max and Todd alveolar bones are in poor retention condition with severe resorption. Pt wore U denture against remaining lower teeth for long without posterior support, causing severe bone resorption on the anterior max alveolar ridge. There is poor prognosis for max and todd denture support/retention, with the max anterior labial fold area to be prone to trauma for denture wear without implants. Advised pt to consult for U and L implants placement. Pt understands. We will proceed with U and L dentures fabrication and pt will consult for implants given time for alveolar ridge healing/resorption. PLAN: Informed Consent/PARQ (Procedure, Alternatives, Risks, Questions): Patient confirms informed consent using PARQ. Dental procedures in this visit [id number] - COMPLETE DENTURE - IN PROCESS (Completed) Service provider: Maren Martel DMD Billing provider: Maren Martel DMD Impressions taken with Alginate on L arch and PVS in upper arch. Post-Op Information Given: verbal Referral: No orders of the following type(s) were placed in this encounter: Referral. Rx: Case sent to DESIGN for wax rims fabrication. Behavior: Semicompliant - limited ROM; pt struggles to cope with dental tx DA: Ynes Puente [place]: Treatment - Denture Visit/bite registration documented in this encounter Plan of Treatment Upcoming Encounters Date Type Department Care Team (Late st Contact Info) Description 09/13/2024 4:20 PM EST Office Visit [address] [phone] Maren Martel, JUDY [address], [place] [phone] 09/20/2024 4:20 PM EDT Office Visit [address] [phone] Maren Martel, JUDY [address] [place] [address] 09/27/2024 3:00 PM EDT Office Visit [address] [phone] Maren Martel, JUDY [address], [place] [phone] 10/04/2024 3:00 PM EDT Office Visit [address] [phone] Maren Martel, JUDY [address], [place] [phone] Scheduled Orders Name Type Priority Associated Diagnoses Order Schedule Max COMPLETE DENTURE - MAXILLARY Dental Procedures Routine 1 Occurren dewyane starting 09/02/2024 Max COMPLETE DENTURE - MAXILLARY Dental Procedures Routine 1 Occurren dewayne starting 09/02/2024 Todd COMPLETE DENTURE - MANDIBULAR Dental Procedures Routine 1 Occurrences starting 09/02/2024 22 SURG PLACEMENT IMPLANT BODY: ENDOSTEAL IMPLANT Dental Procedures Routine 1 Occurrence s starting 09/02/2024 27 SURG PLACEMENT IMPLANT BODY: ENDOSTEAL IMPLANT Dental Procedures Routine 1 Occurrence s starting 09/02/2024 documented as of this encounter Procedures Procedure Name Priority Date/Time Associated Diagnosis Comments COMPLETE DENTURE - IN PROCESS Routine 09/02/2024 3:40 PM EST Missing teeth, acquired documented in this encounter Visit Diagnoses Diagnosis Missing teeth, acquired- Primary Acquired absence of teeth, unspecified documented in this encounter Care Teams Sign Installer Relationship Specialty Start Date End Date Maren Martel DMD [address] [place] [address] PCP - General 03/24/19 documented as of this encounter
--- OUTSIDE RECORDS SUMMARY | 2024-09-05 18:08 | XMS_ITS | Encounter Summary ---
Author Organization [facility] Address [address] [place] [address] Care Team Providers Care Last Picker Name Role Phone Diandra Grady MD Primary Care Provider [phone] Encounter Details Date Type Department Care Team (Late st Contact Info) Description 08/25/2024 2:40 PM EST Office Visit Gastroenterology - [address] [place] [phone] Eryn Lauren NP [address] of the abdomen (Primary Dx); Dyspepsia Social History Tobacco Use Types Packs/Day Years [...] Sign Reading Time Taken Comments Blood Pressure - - Pulse - - Temperature - - Respiratory Rate - - Oxygen Saturation - - Inhaled Oxygen Concentration - - Weight 56.7 kg (125 lb) 08/25/2024 2:29 PM EST Height 167.6 cm (5' 6 ) 08/25/2024 2:29 PM EST Body Mass Index 20.18 08/25/2024 2:29 PM EST documented in this encounter Progress Notes * Eryn Lauren NP - 08/25/2024 2:40 PM EST CHIEF COMPLAINT: No chief complaint on file. DATE OF LAST ENDOSCOPIC PROCEDURES: 04/2016 Colonoscopy 10 yr rcall HPI: Lena Bill is a 69 y.o. old female who was originally referred to us by Diandra Grady MD now presents to the gastroenterology department today telling me she is here because she has pancreatic cancer. I had seen Ms Bill on July where she complained of GERD and gas. I had started her on Omeprazole and simethicone and thought she was here to follow up on that. She is a convoluted historian and she was here with her and son. They were not helpful with getting her history. As best as I can piece together, she has been seen at [facility] in [place] after a fall she had at her daughters home. Next she was admitted to [facility] for sepsis, but is unclear where the infection was. Lastly she tells me she had an MRI at [facility] and was told to see us for her pancreatic cancer Obviously without records I cannot comment or intervene for this patient. I had her sign medical releases and will try to piece together what is happening In the interim, she tells me her GERD is better on medication and her weight is stable. She denies N/V. I will see her back in the office in 2 weeks. ROS: GENERAL: No malaise, significant weight loss or fever HEENT: No changes in hearing or vision or swallowing problems RESPIRATORY: No cough, wheezing or shortness of breath CARDIOVASCULAR: No chest pain, leg swelling or palpitations GI: See H&P The remainder of the review of systems is reviewed and negative. PAST MEDICAL HISTORY: CAD Hyperlipidemia OA Carotid Stenosis Pulmonary nodule PAST SURGICAL HISTORY: Past Surgical History: Procedure Laterality Date CAROTID ENDARTERECTOMY TOE AMPUTATION SOCIAL HISTORY: 2 pack tobacco daily No EtOH 2-3 coffee daily FAMILY HISTORY: No family history on file. ACTIVE MEDICATIONS: Current Outpatient Medications Medication Sig Dispense Refill albuterol HFA (PROAIR HFA ; PROVENTIL HFA ; VENTOLIN HFA) 90 mcg/actuation inhaler ALPRAZolam (XANAX) 2 mg tablet atomoxetine (STRATTERA) 25 mg capsule blood sugar diagnostic (ChatterBlock Verio test strips) test strip cyanocobalamin (VITAMIN B-12) 1,000 mcg tablet DULoxetine (CYMBALTA) [address] capsule eletriptan (RELPAX) 40 mg tablet ezetimibe (ZETIA) 10 mg tablet hydrOXYzine HCL (ATARAX) 50 mg tablet Jardiance 25 mg tablet lisinopriL (PRINIVIL,ZESTRIL) 20 mg tablet loperamide (IMODIUM) 2 mg capsule metFORMIN XR (GLUCOPHAGE-XR) 500 mg 24 hr tablet naloxone (NARCAN) 4 mg/0.1 mL nasal spray nitroglycerin (NITROSTAT) 0.4 mg SL tablet omeprazole (PriLOSEC) [address] capsule omeprazole (PriLOSEC) [address] capsule Take 1 capsule (40 mg total) by mouth 1 (one) time each day.Do not crush or chew. 30 each 11 omeprazole OTC (PriLOSEC OTC) 20 mg EC tablet Take 2 tablets (40 mg total) by mouth 1 (one) time each day. Do not crush, chew, or split. 60 tablet 11 ondansetron ODT (ZOFRAN-ODT) 8 mg disintegrating tablet oxyCODONE (ROXICODONE) 15 mg immediate release tablet polyethylene glycol (MIRALAX) 17 gram packet promethazine (PHENERGAN) 25 mg tablet rosuvastatin (CRESTOR) 40 mg tablet simethicone (Mylanta Gas) 125 mg chewable tablet Chew 1 tablet (125 mg total) 4 (four) times a day (before meals and nightly). 120 tablet 11 simethicone (MYLICON,GAS-X) 180 mg capsule Take 1 capsule (180 mg total) by mouth 4 (four) times a day if needed for flatulence. 120 capsule 11 Trulicity 1.5 mg/0.5 mL pen injector injection No current facility-administered medications for this visit. ALLERGIES: No Known Allergies PHYSICAL EXAM: Visit Vitals Ht 1.676 m (66 ) Wt 56.7 kg (125 lb) BMI 20.18 kg/m?? Smoking Status Former BSA 1.64 m?? APPEARANCE: Alert and in no acute distress EYES: PERRLA, conjunctiva and sclera normal. HEART: RRR with normal S1 and S2, no murmurs appreciated LUNG: clear to auscultation ABDOMEN: soft mild epigastric discomfort without guarding or masses NEURO: Awake, alert and oriented x 3 Assessment & Plan Abnormal CT of the abdomen Orders: CBC and differential; Future Comprehensive metabolic panel; Future Amylase and lipase; Future Dyspepsia Need to have pt sign release t get records before I can make a treatment plan I need records of previous hospitalization and imaging before making a treatment plan OV 2 weeks I would like to thank Diandra Grady MD for the opportunity to partake in the patient's care. Board Certified Gastroenterology [facility] [phone] [address] [email or web address] Eryn Lauren NP documented in this encounter Plan of Treatment Upcoming Encounters Date Type Department Care Team (Late st Contact Info) Description 09/08/2024 3:00 PM EST Office Visit Gastroenterology - [address] [phone] Eryn Lauren NP [address] [address] documented as of this encounter Results * (ABNORMAL) Comprehensive metabolic panel (08/25/2024 3:19 PM EST) Sodium 137 133 - 145 mmol/L LAB CHEMISTRY METHOD 08/25/2024 4:32 PM EST [facility] Potassium 4.4 3.5 - 5.5 mmol/L LAB CHEMISTRY METHOD 08/25/2024 4:32 PM EST [facility] Chloride 103 96 - 110 mmol/L LAB CHEMISTRY METHOD 08/25/2024 4:32 PM [facility] CO2 26 21 - 32 mmol/L LAB CHEMISTRY METHOD 08/25/2024 4:32 PM [facility] Anion Gap 8 3 - 11 LAB CHEMISTRY METHOD 08/25/2024 4:32 PM [facility] Glucose 185(H) 70 - 100 mg/dL LAB CHEMISTRY METHOD 08/25/2024 4:32 PM [facility] BUN 20 5 - 25 mg/dL LAB CHEMISTRY METHOD 08/25/2024 4:32 PM [facility] Creatinine 1.42(H) 0.50 - 1.10 mg/dL LAB CHEMISTRY METHOD 08/25/2024 4:32 PM [facility] eGFR 40(L) >=60 mL/min/1. 73m2 LAB CHEMISTRY METHOD 08/25/2024 4:32 PM [facility] Comment:Calculation based on the??Chronic Kidney Disease Epidemiology Collaboration (CKD-EPI) equation refit??without adjustment for race. BUN/Creatinine Ratio 14.1 LAB CHEMISTRY METHOD 08/25/2024 4:32 PM [facility] Calcium 9.5 8.5 - 10.5 mg/dL LAB CHEMISTRY METHOD 08/25/2024 4:32 PM [facility] AST (SGOT) 20 10 - 42 unit/L LAB CHEMISTRY METHOD 08/25/2024 4:32 PM [facility] ALT (SGPT) 15 10 - 60 unit/L LAB CHEMISTRY METHOD 08/25/2024 4:32 PM [facility] Alkaline Phosphatase 76 42 - 121 unit/L LAB CHEMISTRY METHOD 08/25/2024 4:32 PM [facility] Total Protein 6.8 6.0 - 8.0 g/dL LAB CHEMISTRY METHOD 08/25/2024 4:32 PM [facility] Albumin 3.5 3.2 - 5.0 g/dL LAB CHEMISTRY METHOD 08/25/2024 4:32 PM [facility] Total Bilirubin 0.3 0.0 - 1.4 mg/dL LAB CHEMISTRY METHOD 08/25/2024 4:32 PM [facility] Blood Venous blood specimen / Unknown Venipuncture / Unknown 08/25/2024 3:19 PM EST 08/25/2024 3:58 PM EST us Eryn Lauren [facility] BLOOD ORDERABLES Final Re sult [facility] [address] [place] [address], documented in this encounter Visit Diagnoses Diagnosis Abnormal CT of the abdomen- Primary Nonspecific (abnormal) findings on radiological and other examination of abdominal area, including retroperitoneum Dyspepsia Dyspepsia and other specified disorders of function of stomach documented in this encounter Orders Lab Orders Without Results Count Last Ordered D ate First Ordered Date AMYLASE AND LIPASE 1 08/25/2024 documented in this encounter Care Teams Last Picker Relationship Specialty Start Date End Date Diandra Grady MD [address] [place] [address] [address] [facility] [place] [address] PCP - General Internal Medicine 07/15/21 documented as of this encounter
--- OUTSIDE RECORDS SUMMARY | 2024-09-05 18:08 | XMS_ITS | Clinical Summary ---
Author Organization [facility] Address [address] [place] [address] Care Team Providers Care Coin Purse Framer Name Role Phone aMren Martel DMD Primary Care Provider [phone] Source Comments PLEASE NOTE, if this patient is a minor, it may be UNLAWFUL to discuss sensitive information that is contained in these records (such as FAMILY PLANNING, MENTAL HEALTH or SUBSTANCE ABUSE) with the minor patient's parent or other person without the patient's specific authorization.[facility] Allergies No known active allergies Medications No known medications Active Problems No known active problems Encounters Date Type Department Care Team Description 09/02/2024 3:40 PM EST Office Visit [facility] [address] [place] [phone] Maren Martel, DMD Missing teeth, acquired (Primary Dx) 07/29/2024 2:00 PM EST Office Visit [facility] [address] [place] [phone] Yoo-Marko Roa, DDS Retained tooth root (Primary Dx); Caries 07/29/2024 11:00 AM EST Office Visit [facility] [address] [place] [phone] Maren Martel, DMD Missing teeth, acquired (Primary Dx) 07/29/2024 Travel 06/16/2024 2:20 PM EST Office Visit [facility] [address] [place] [address] Antonio Galicia RHD Encounter for dental examination (Primary Dx); Retained tooth root; Caries 06/16/2024 Travel from Last 3 Months Social History Tobacco Use Types Packs/Day Years Used Date Smoking Tobacco: Every Day Cigarettes Smokeless Tobacco: Never Tobacco Cessation:Ready to Q uit: Not Asked; Counseling Given: Not Answered Social Connections Answer Date Recorded Connectedness 0 [...] - - Body Mass Index - - Plan of Treatment Upcoming Encounters Date Type Department Care Team (Late st Contact Info) Description 09/13/2024 4:20 PM EST Office Visit [facility] [address] [place] [phone] Maren Martel, DMD [address] [place] [address] 09/20/2024 4:20 PM EDT Office Visit [facility] [address] [place] [phone] Maren Martel, DMD [address] [place] [address] 09/27/2024 3:00 PM EDT Office Visit [address] [phone] Maren Martel, JUDY [address] [place] [address] 10/04/2024 3:00 PM EDT Office Visit [facility] [address] [place] [phone] Maren Martel, DMD [address] [place], [place] [phone] Health Maintenance Due Date Last Done Comments Dental Perio Charting 1953 Dental Prophy 1953 Hepatitis C Screening 1953 Lipid Screening 1953 Tobacco Cessation Counseling (#1) 1953 Imm-DTaP/Tdap/Td (1 - Tdap) 1972 Breast Cancer Screening (Mammogram) 1993 CT Colonography 1998 Colonoscopy 1998 Colorectal Cancer Screening 1998 FIT/gFOBT 1998 Fecal DNA 1998 Flexible Sigmoidoscopy 1998 Imm-Zoster, Recombinant (1 of 2) 2003 Imm-Pneumococcal 65+ (2 of 2 - PCV) 04/17/2017 04/17/2016 Bone Density Screening 2018 Falls Prevention 2018 [id number]-10 ( season) 2024 Imm-Influenza (#1) 2024 06/19/2017, 1 08/17/2016, 04/17/2016, Additional history exists Alcohol and Drug Screen 07/13/2024 Depression Annual Screen 07/13/2024 Dental Examination 06/18/2025 06/16/2024 Hypertension Screening (#1) 09/02/2025 Dental FMX/Pano 06/18/2029 06/16/2024 Procedures Procedure Name Priority Date/Time Associated Diagnosis Comments COMPLETE DENTURE - IN PROCESS Routine 09/02/2024 3:40 PM EST Missing teeth, acquired 27 EXTRACTION ERUPTED TOOTH OR EXPOSED ROOT Routine 07/29/2024 2:00 PM EST Caries Retained tooth root 26 EXTRACTION ERUPTED TOOTH OR EXPOSED ROOT Routine 07/29/2024 2:00 PM EST Retained tooth root Caries 25 EXTRACTION ERUPTED TOOTH OR EXPOSED ROOT Routine 07/29/2024 2:00 PM EST Retained tooth root Caries 24 EXTRACTION ERUPTED TOOTH OR EXPOSED ROOT Routine 07/29/2024 2:00 PM EST Caries Retained tooth root 23 EXTRACTION ERUPTED TOOTH OR EXPOSED ROOT Routine 07/29/2024 2:00 PM EST Caries Retained tooth root CASE PRESENTATION SUBS DTL & EXTENSIVE TX PLN Routine 07/29/2024 2:00 PM EST Retained tooth root OFFICE VISIT OBSERVATION NO OTHER SRVC PERFORMED Routine 07/29/2024 11:00 AM EST Missing teeth, acquired DENTAL CASE MANAGEMENT - MOTIVATIONAL INTV Routine 06/16/2024 2:20 PM EST Caries Encounter for dental examination 23 INTRAORAL - PERIAPICAL EACH ADD RADIOGRAPH IMAGE Routine 06/16/2024 2:20 PM EST Retained tooth root Caries Encounter for dental examination PANORAMIC RADIOGRAPHIC IMAGE Routine 06/16/2024 2:20 PM EST Retained tooth root Caries Encounter for dental examination 27 INTRAORAL - PERIAPICAL FIRST RADIOGRAPHIC IMAGE Routine 06/16/2024 2:20 PM EST Retained tooth root Caries Encounter for dental examination COMP ORAL EVALUATION - NEW/ESTABLISHED PATIENT Routine 06/16/2024 2:20 PM EST Caries Encounter for dental examination CARIES RISK ASSESSMENT & DOC FINDING HIGH RISK Routine 06/16/2024 2:20 PM EST Caries Encounter for dental examination NUTRITIONAL COUNSELING CONTROL OF DENTAL DISEASE Routine 06/16/2024 2:20 PM EST Caries Encounter for dental examination ORAL HYGIENE INSTRUCTIONS Routine 06/16/2024 2:20 PM EST Caries Encounter for dental examination ORAL CANCER SCREENING Routine 06/16/2024 2:20 PM EST Caries Encounter for dental examination CASE PRESENTATION SUBS DTL & EXTENSIVE TX PLN Routine 06/16/2024 2:20 PM EST Encounter for dental examination 27 ML COMPOSITE - WISDOM (NON BILLABLE) Routine 06/16/2024 12:00 AM EST 24 MDFL COMPOSITE - WISDOM (NON BILLABLE) Routine 06/16/2024 12:00 AM EST 23 MDFL COMPOSITE - WISDOM (NON BILLABLE) Routine 06/16/2024 12:00 AM EST Max COMPLETE DENTURE - WISDOM (NON BILLABLE) Routine 06/16/2024 12:00 AM EST from Last 3 Months Insurance [place] MEDICAID DENTAL Care Teams Coin Purse Framer Relationship Specialty Start Date End Date Maren Martel DMD [address] [place] [address] PCP - General 03/24/19
--- OUTSIDE RECORDS SUMMARY | 2024-09-05 18:08 | XMS_ITS | Encounter Summary ---
Author Organization [facility] Address [address] [place] [address] Care Team Providers Care Paper Bag Press Operator Name Role Phone Diandra Grady MD Primary Care Provider [phone] Reason for Visit * Reason Onset Date Comments Results 08/26/2024 Encounter Details Date Type Department Care Team (Late st Contact Info) Description 08/26/2024 Telephone Gastroenterology - [address] [place] [address] Rosemary Farmer MA Results Social History Tobacco Use Types Packs/Day Years Used Date Smoking Tobacco: Former Cigarettes Smokeless Tobacco: Never Comments Unknown Sex and Gender Information Value Date Recorded Sex Assigned at Not on file Legal Sex Female 3:19 PM EST Gender Identity Not on file Sexual Orientation Not on file documented as of this encounter Progress Notes * Rosemary Farmer MA - 08/26/2024 4:10 PM EST Lab results below given to pt. * Rosemary Farmer MA - 08/26/2024 4:10 PM EST ----- Message from Sukhjinder Lauren NP sent at 08/26/2024 4:07 PM EST ----- Pleasr let pt know her labs look good. Liver and pancreas numbers NORMAL. Her glucose is high follow up with PCP ----- Message ----- From: Lab, Background User Sent: 08/25/2024 4:05 PM EST To: Eryn Lauren NP documented in this encounter Plan of Treatment Upcoming Encounters Date Type Department Care Team (Late st Contact Info) Description 09/08/2024 3:00 PM EST Office Visit Gastroenterology - [address] [place] [phone] Eryn Lauren NP [address] [place] [address] documented as of this encounter Visit Diagnoses Not on filedocumented in this encounter Care Teams Paper Bag Press Operator Relationship Specialty Start Date End Date Diandra Grady MD [address] [place] [address] [address] [facility] [place] [address] PCP - General Internal Medicine 07/15/21 documented as of this encounter
--- OUTSIDE RECORDS SUMMARY | 2024-09-05 18:09 | XMS_ITS | Patient Health Record ---
Author Organization [facility] Address [address] [place] [address] Care Team Providers Care Line Palletizer Name Role Phone Miguel A, Diandra Primary Care Provider Unavailabl e Black, Camryn Unavailable [phone] Reason For Referral No Information Medications Medication SIG (Take, Route, Frequency, Duration) Notes Start Date End Date Status zzzExtra Depth Orthopedic Shoes (1 Pair) with Customized Heat Molded Multidensity Innersoles (3 Pair) . . . Dx: NIDDM/Polyneuropathy (E11.42), Hammertoe Foot Deformity (M20.41,M20.42), Preulcerative Skin Lesion(s) (L85.1) for . 10/09/2015 Active metFORMIN HCl 1000 MG TK 1 T PO BID Oral for 45 Not-Taking Morphine Sulfate ER 60 MG (Schedule II D rug) TAKE 1 TABLET BY MOUTH EVERY 12 HOURS FOR 30 DAYS Oral for 30 Active zzzCompression Stockings 20-30mm Hg . . . for . Active Lisinopril-hydroCHLOROthi azide 10-12.5 MG TK 1 T PO ONCE D Oral for 90 Active Extra Depth Orthopedic Shoes (1 Pair) with Customized Heat Molded Multidensity Innersoles (3 Pair) as directed Dx: NIDDM/Polyneuropathy (E11.42), Hammertoe Foot Deformity (M20.41,M20.42), Preulcerative Skin Lesion(s) (L85.1 08/10/2017 Active Lyrica 20 MG/ML Orally Acti ve Xanax 2 MG 1 tablet Orally Thre e times a day Active Plavix Active Percocet 7.5 Active Bystolic Active Cymbalta Active Extra Depth Orthopedic Shoes (1 Pair) with Customized Heat Molded Multidensity Innersoles (3 Pair) as directed Dx: NIDDM/Polyneuropathy (E11.42), Hammertoe Foot Deformity (M20.41,M20.42), Preulcerative Skin Lesion(s) (L85.1 01/02/2017 Active zzzExtra Depth Orthopedic Shoes (1 Pair) with Customized Heat Molded Multidensity Innersoles (3 Pair) . . . Dx: NIDDM/Polyneuropathy (E11.42), Hammertoe Foot Deformity (M20.41,M20.42), Preulcerative Skin Lesion(s) (L85.1) for . Active Victoza 18 MG/3ML Subcutaneous Active Immunizations Vaccine Route Administration Date Status Comme nts Influenza Unknown 03/28/2015 Administered Influenza Unknown 06/16/2017 Administered Social History Tobacco use other than smoking: Question Answer Notes Are you an other tobacco user? No Problems Problem Type SNOMED Code ICD Code Onset Dates Problem Status W/U Status Risk Notes Problem Acquired hammer toe of right foot (5672710348948329 ) Other hammer toe(s) (acquired), right foot (M20.41) Active confirmed Problem Acquired hammer toe of left foot (9675635641999212 ) Other hammer toe(s) (acquired), left foot (M20.42) Active confirmed Problem Polyneuropathy due to type 2 diabetes mellitus (235933758) Type 2 diabetes mellitus with diabetic polyneuropathy (E11.42) Active confirmed Plan Of Treatment Pending Test Test Name Order Date 56351-RLIDEIS NAIL, 6 OR MORE 10/09/2015 32506-SZRTEBI NAIL, 6 OR MORE 11/01/2015 23898-NDGWYCY NAIL, 6 OR MORE 01/02/2017 33166-[id number] NAIL, 6 OR MORE 08/10/2017 89702-[id number] NAIL, 1-5 12/25/2015 41877-VJHCBCK NAIL, 1-5 01/09/2016 81613- Debride <25 sq cm 10/09/2015 70808-ADQTNNF SKIN/TISSUE 01/09/2016 15638-OCMRHTP SKIN/TISSUE 11/01/2015 75463-[id number] SKIN/TISSUE 11/29/2015 13192-[id number] SKIN/TISSUE 12/25/2015 96323-VXYJ SKIN LESIONS, OVER 4 01/03/20 17 63438-KKOL SKIN LESIONS, OVER 4 08/10/19 18 44298-PTTC SKIN LESIONS, 2 TO 4 10/09/19 16 Insurance Providers Payer Name Payer Address Payer Phone Subscriber Number Group Number Insured Name Patient Relationship to Insured Coverage Start Date Coverage End Date A[employer] Medicare Complete [address] [address] [place] [address] [id number] Lena Bill Self - patient is the insured Medical (General) History Medical History History ICD Code Anxiety Arthritis Cataracts Depression type II diabetes Neuropathy High blood pressure Headaches Psychiatric disorder Back,Hip,and Knee pain Reflux Measles Mumps Chicken pox Surgical History Surgery Date(Month/Year) Stent at [facility] 11-23-2015 Hospitalization History Reason Date(Month/Year) [facility] - stent iliac artery & amputati on of toe 12/2015 [facility] Left Carotid artery 07/21/17
--- OUTSIDE RECORDS SUMMARY | 2024-09-05 18:09 | XMS_ITS | Clinical Summary ---
Author Organization [facility] [address] [facility] Address [address] [place] [address] Phone Care Team Providers Care Sprayer Leather Name Role Phone Diandra Grady MD Primary Care Provider [phone] Allergies No known active allergies Medications Trulicity 1.5 mg/0.5 mL pen injector injection 4 Active albuterol HFA (PROAIR HFA ; PROVENTIL HFA ; VENTOLIN HFA) 90 mcg/actuation inhaler 4 Active ALPRAZolam (XANAX) 2 mg tablet 4 Active atomoxetine (STRATTERA) 25 mg capsule 4 Active blood sugar diagnostic (OneTouch Verio test strips) test strip 4 Active cyanocobalamin (VITAMIN B-12) 1,000 mcg tablet 4 Active DULoxetine (CYMBALTA) [address] capsule 4 Active Jardiance 25 mg tablet 4 Active eletriptan (RELPAX) 40 mg tablet 4 Active ezetimibe (ZETIA) 10 mg tablet 4 Active hydrOXYzine HCL (ATARAX) 50 mg tablet 4 Active lisinopriL (PRINIVIL,ZESTRIL) 20 mg tablet 4 Active loperamide (IMODIUM) 2 mg capsule 4 Active metFORMIN XR (GLUCOPHAGE-XR) 500 mg 24 hr tablet 4 Active naloxone (NARCAN) 4 mg/0.1 mL nasal spray 4 Active nitroglycerin (NITROSTAT) 0.4 mg SL tablet 4 Active ondansetron ODT (ZOFRAN-ODT) 8 mg disintegrating tablet 4 Active omeprazole (PriLOSEC) [address] capsule 4 Active oxyCODONE (ROXICODONE) 15 mg immediate release tablet 4 Active polyethylene glycol (MIRALAX) 17 gram packet 4 Active promethazine (PHENERGAN) 25 mg tablet 4 Active rosuvastatin (CRESTOR) 40 mg tablet 4 Active omeprazole OTC (PriLOSEC OTC) 20 mg EC tablet Take 2 tablets (40 mg total) by mouth 1 (one) time each day. Do not crush, chew, or split. 60 tablet 5 07/22/19 26 Active simethicone (MYLICON,GAS-X) 180 mg capsuleIndications: Gastroesophageal reflux disease, unspecified whether esophagitis present Take 1 capsule (180 mg total) by mouth 4 (four) times a day if needed for flatulence. 120 capsule 5 Active omeprazole (PriLOSEC) [address] capsuleIndications: Gastroesophageal reflux disease, unspecified whether esophagitis present Take 1 capsule (40 mg total) by mouth 1 (one) time each day. Do not crush or chew. 30 each 5 07/22/19 26 Active simethicone (Mylanta Gas) 125 mg chewable tabletIndications:F latulence/gas pain/belching Chew 1 tablet (125 mg total) 4 (four) times a day (before meals and nightly). 120 tablet 5 07/28/19 26 Active Active Problems Problem Noted Date Diagnosed Date Primary osteoarthritis 05/23/2024 Other hyperlipidemia 05/23/2024 Coronary artery disease with angina pectoris 05/2024 ADD (attention deficit disorder) 05/23/2024 Type 2 diabetes mellitus 05/23/2024 Neuropathy associated with endocrine disorder Bilateral carotid artery stenosis 05/23/2024 Primary hypertension 05/23/2024 Anxiety 05/23/2024 Depression 05/23/2024 Chronic low back pain 05/23/2024 Encounters Date Type Department Care Team Description 09/02/2024 Telephone Gastroenterology - [address] [phone] Brandie Bales MD medication question 08/26/2024 Telephone Gastroenterology - [address] [phone] Rosemary Farmer MA Results 08/25/2024 2:40 PM EST Office Visit Gastroenterology - [address] [place] [phone] Eryn Lauren NP Abnormal CT of the abdomen (Primary Dx); Dyspepsia 07/28/2024 Telephone Gastroenterology - [address] [phone] Lucita Rojas MA 07/22/2024 2:31 PM EST - 07/22/2024 11:59 PM EST Hospital Encounter [facility] Xray [address] [place] [phone] Other constipation Discharge Disposition: Home or Self Care 07/22/2024 1:40 PM EST Office Visit Gastroenterology - [address] [place] [phone] Eryn Lauren NP Gastroesophageal reflux disease, unspecified whether esophagitis present (Primary Dx); Other constipation from Last 3 Months Surgical History Surgery Date Site/Laterality Comments TOE AMPUTATION CAROTID ENDARTERECTOMY Social History Tobacco Use Types Packs/Day Years Used Date Smoking Tobacco: Former Cigarettes Smokeless Tobacco: Never Tobacco Cessation:Counseling Given: Not Answered Comments Unknown Sex and Gender Information Value Date Recorded Sex Assigned at Not on file Legal Sex Female 3:19 PM EST Gender Identity Not on file Sexual Orientation Not on file Obstetrics History Last Filed Vital Signs Vital Sign Reading Time Taken Comments Blood Pressure - - Pulse - - Temperature - - Respiratory Rate - - Oxygen Saturation - - Inhaled Oxygen Concentration - - Weight 56.7 kg (125 lb) 08/25/2024 2:29 PM EST Height 167.6 cm (5' 6 ) 08/25/2024 2:29 PM EST Body Mass Index 20.18 08/25/2024 2:29 PM EST Plan of Treatment Upcoming Encounters Date Type Department Care Team (Late st Contact Info) Description 09/08/2024 3:00 PM EST Office Visit Gastroenterology - [address] [place] [phone] Eryn Lauren, ENGINEERING LABORATORY TECHNICIAN [address] [place] [address] Health Maintenance Due Date Last Done Comments Breast Cancer Screening 1955 Diabetes: Annual Foot Exam 1963 Diabetes: Annual Retina Eye Exam 1965 RSV Immunization Patients 60+ Years Old (1 - Risk 60-74 years 1-dose series) 2013 Zoster Vaccines (2 of 2) 05/14/2018 03/19/2018 Cholesterol Screening (Lipid Panel) 06/11/2022 Depression Screening 06/11/2022 Falls Risk Assessment 06/11/2022 Hepatitis C Screening 06/11/2022 Medicare Annual Wellness Visit 06/11/2022 Osteoporosis Screening (Bone Density Screening) 06/11/2022 Social Influencers of Health Screening 06/11/2022 Diabetes: Annual Urine Albumin-Creatinine Ratio (uACR) 05/23/2024 Diabetes: Blood Sugar Control Test (HGBA1C) 05/23/2024 Diabetes: Annual GFR (Glomerular Filtration Rate) 08/25/2025 08/25/2024 Hypertension/CHF/CAD Annual BMP Blood Test 08/25/2025 08/25/2024 Colorectal Cancer Screening: Colonoscopy 07/01/2026 07/01/2016 DTaP,Tdap,and Td Vaccines (2 - Td or Tdap) 11/16/2028 11/16/2018 MMR Vaccines Aged Out 11/16/2018 No longer eligi ble based on patient's age to complete this topic Pneumococcal Vaccine: 50+ Years Completed 02/03/2023, 07/01/2019, 02/15/2018, Additional history exists COVID-19 Vaccine Completed 2024, , 07/03/2021, Additional history exists Influenza Vaccine Completed 2024, , 05/29/2021, Additional history exists HIB Vaccines Aged Out No longer eligi ble based on patient's age to complete this topic HPV Vaccines Aged Out No longer eligi ble based on patient's age to complete this topic Hepatitis A Vaccines Aged Out No long er eligible based on patient's age to complete this topic Hepatitis B Vaccines Aged Out No long er eligible based on patient's age to complete this topic IPV Vaccines Aged Out No longer eligi ble based on patient's age to complete this topic Meningococcal ACWY Vaccine Aged Out N o longer eligible based on patient's age to complete this topic Meningococcal B Vacine Aged Out No lo nger eligible based on patient's age to complete this topic RSV Immunization Patients Under 20 months Aged Out No longer eligible based on patient's age to complete this topic Varicella Vaccines Aged Out No longer eligible based on patient's age to complete this topic Procedures Procedure Name Priority Date/Time Associated Diagnosis Comments CBC WITH AUTO DIFFERENTIAL Routine 08/25/2024 3:[address] of the abdomen Dyspepsia LIPASE Routine 08/25/2024 3:19 PM EST Abnormal abdominal ultrasound Dyspepsia AMYLASE Routine 08/25/2024 3:19 PM EST Abnormal abdominal ultrasound Dyspepsia COMPREHENSIVE METABOLIC PANEL Routine 08/25/2024 3:[address] of the abdomen Dyspepsia CBC AND DIFFERENTIAL Routine 08/25/2024 3:[address] of the abdomen Dyspepsia XR ABDOMEN 1 VIEW Routine 07/22/2024 2:4 4 PM EST Other constipation COLONOSCOPY Routine 07/01/2016 9:36 AM EST from Last 3 Months or Most Recently Relevant to Health Maintenance Results * CBC auto differential (08/25/2024 3:19 PM EST) WBC 9.0 4.8 - 10.8 K/mcL LAB HEMETOLOGY METHOD 08/25/2024 4:05 PM [facility] RBC 4.50 3.80 - 4.80 M/mcL LAB HEMETOLOGY METHOD 08/25/2024 4:05 PM [facility] Hemoglobin 12.9 11.5 - 16.0 g/dL LAB HEMETOLOGY METHOD 08/25/2024 4:05 PM [facility] Hematocrit 40.2 35.0 - 47.0 % LAB HEMETOLOGY METHOD 08/25/2024 4:05 PM [facility] MCV 90.3 79.0 - 98.0 FL LAB HEMETOLOGY METHOD 08/25/2024 4:05 PM [facility] MCH 29.0 27.0 - 32.0 pcg LAB HEMETOLOGY METHOD 08/25/2024 4:05 PM [facility] MCHC 32.1 32.0 - 37.0 g/dL LAB HEMETOLOGY METHOD 08/25/2024 4:05 PM [facility] RDW 12.6 11.0 - 15.0 % LAB HEMETOLOGY METHOD 08/25/2024 4:05 PM [facility] Platelets 346 130 - 400 K/mcL LAB HEMETOLOGY METHOD 08/25/2024 4:05 PM [facility] MPV 9.4 7.0 - 11.0 FL LAB HEMETOLOGY METHOD 08/25/2024 4:05 PM [facility] NRBC 0.0 <1.0 % LAB HEMETOLOGY METHOD 08/25/2024 4:05 PM [facility] NRBC Absolute 0.00 <0.10 K/mcL LAB HEMETOLOGY METHOD 08/25/2024 4:05 PM [facility] Neutrophils Relative 58.4 % LAB HEMETOLOGY METHOD 08/25/2024 4:05 PM [facility] Lymphocytes Relative 33.4 % LAB HEMETOLOGY METHOD 08/25/2024 4:05 PM [facility] Monocytes Relative 5.8 % LAB HEMETOLOGY METHOD 08/25/2024 4:05 PM [facility] Eosinophils Relative 1.7 % LAB HEMETOLOGY METHOD 08/25/2024 4:05 PM [facility] Basophils Relative 0.4 % LAB HEMETOLOGY METHOD 08/25/2024 4:05 PM [facility] Immature Granulocytes Relative 0.3 % LAB HEMETOLOGY METHOD 08/25/2024 4:05 PM [facility] Neutrophils Absolute 5.27 1.50 - 7.00 K/mcL LAB HEMETOLOGY METHOD 08/25/2024 4:05 PM [facility] Lymphocytes Absolute 3.01 1.00 - 5.00 K/mcL LAB HEMETOLOGY METHOD 08/25/2024 4:05 PM [facility] Monocytes Absolute 0.52 0.20 - 1.00 K/mcL LAB HEMETOLOGY METHOD 08/25/2024 4:05 PM [facility] Eosinophils Absolute 0.15 0.00 - 0.50 K/mcL LAB HEMETOLOGY METHOD 08/25/2024 4:05 PM [facility] Basophils Absolute 0.04 0.00 - 0.20 K/mcL LAB HEMETOLOGY METHOD 08/25/2024 4:05 PM [facility] Immature Granulocytes Absolute 0.03 0.00 - 0.03 K/mcL LAB HEMETOLOGY METHOD 08/25/2024 4:05 PM [facility] Blood Venous blood specimen / Unknown Venipuncture / Unknown 08/25/2024 3:19 PM EST 08/25/2024 3:58 PM EST Eryn Lauren ENGINEERING LABORATORY TECHNICIAN LAB BLOOD ORDERABLES Final Re sult Performing Organization Address City/[facility]/ZIP Co de Phone Number [facility] [address] [place] [address], [place] [phone] * Lipase (08/25/2024 3:19 PM EST) [facility] Lipase 41 13 - 75 unit/L LAB CHEMISTRY METHOD 08/25/2024 4:32 PM EST [facility] Blood Venous blood specimen / Unknown Venipuncture / Unknown 08/25/2024 3:19 PM EST 08/25/2024 3:58 PM EST us Eryn Lauren NP LAB BLOOD ORDERABLES Final Re sult Performing Organization Address [facility] Co de Phone Number [facility] [address] [place] [address], [place] [phone] * Amylase (08/25/2024 3:19 PM EST) [facility] Amylase 80 25 - 115 unit/L LAB CHEMISTRY METHOD 08/25/2024 4:32 PM EST [facility] Blood Venous blood specimen / Unknown Venipuncture / Unknown 08/25/2024 3:19 PM EST 08/25/2024 3:58 PM EST us Eryn Lauren NP LAB BLOOD ORDERABLES Final Re sult Performing Organization Address [facility]/ZIP Co de Phone Number [facility] [address] [place] [address], [place] [phone] * (ABNORMAL) Comprehensive metabolic panel (08/25/2024 3:19 PM EST) [facility] Sodium 137 133 - 145 mmol/L LAB CHEMISTRY METHOD 08/25/2024 4:32 PM EST [facility] Potassium 4.4 3.5 - 5.5 mmol/L LAB CHEMISTRY METHOD 08/25/2024 4:32 PM EST [facility] Chloride 103 96 - 110 mmol/L LAB CHEMISTRY METHOD 08/25/2024 4:32 PM [facility] CO2 26 21 - 32 mmol/L LAB CHEMISTRY METHOD 08/25/2024 4:32 PM [facility] Anion Gap 8 3 - 11 LAB CHEMISTRY METHOD 08/25/2024 4:32 PM [facility] Glucose 185(H) 70 - 100 mg/dL LAB CHEMISTRY METHOD 08/25/2024 4:32 PM [facility] BUN 20 5 - 25 mg/dL LAB CHEMISTRY METHOD 08/25/2024 4:32 PM [facility] Creatinine 1.42(H) 0.50 - 1.10 mg/dL LAB CHEMISTRY METHOD 08/25/2024 4:32 PM [facility] eGFR 40(L) >=60 mL/min/1. 73m2 LAB CHEMISTRY METHOD 08/25/2024 4:32 PM [facility] Comment:Calculation based on the??Chronic Kidney Disease Epidemiology Collaboration (CKD-EPI) equation refit??without adjustment for race. BUN/Creatinine Ratio 14.1 LAB CHEMISTRY METHOD 08/25/2024 4:32 PM [facility] Calcium 9.5 8.5 - 10.5 mg/dL LAB CHEMISTRY METHOD 08/25/2024 4:32 PM [facility] AST (SGOT) 20 10 - 42 unit/L LAB CHEMISTRY METHOD 08/25/2024 4:32 PM [facility] ALT (SGPT) 15 10 - 60 unit/L LAB CHEMISTRY METHOD 08/25/2024 4:32 PM [facility] Alkaline Phosphatase 76 42 - 121 unit/L LAB CHEMISTRY METHOD 08/25/2024 4:32 PM [facility] Total Protein 6.8 6.0 - 8.0 g/dL LAB CHEMISTRY METHOD 08/25/2024 4:32 PM [facility] Albumin 3.5 3.2 - 5.0 g/dL LAB CHEMISTRY METHOD 08/25/2024 4:32 PM EST [facility] Total Bilirubin 0.3 0.0 - 1.4 mg/dL LAB CHEMISTRY METHOD 08/25/2024 4:32 PM EST [facility] Blood Venous blood specimen / Unknown Venipuncture / Unknown 08/25/2024 3:19 PM EST 08/25/2024 3:58 PM EST us Eryn Lauren NP LAB BLOOD ORDERABLES Final Re sult [facility]) [facility] [address] [place] [address], [place] [phone] * XR Abdomen 1 View (07/22/2024 2:44 PM EST) Anatomical Region Laterality Modality Body Radiographic Madonna ging 07/27/2024 8:19 AM EST Impressions 07/27/2024 8:21 AM EST Nonobstructive gas pattern. -------- FINAL REPORT -------- Dictated By: Regan Joe Dictated Date: 07/27/2024 08:19 ET Assigned Physician: Regan Joe Reviewed and Electronically Signed By: Regan Joe Signed Date: 07/27/2024 08:21 ET Workstation ID: [id number] Transcribed By: Self Edit Transcribed Date: 07/27/2024 08:19 ET Narrative 07/27/2024 8:21 AM EST EXAMINATION: ABDOMEN CLINICAL INFORMATION: Pain. Distention COMPARISON: 01/11/2024 TECHNIQUE: Supine frontal view of the abdomen FINDINGS: There are surgical clips in the right upper quadrant. There is extensive arterial calcification. There is osteopenia. There is a moderate amount gas within nondistended loops of small and large bowel throughout the abdomen and pelvis. The bowel gas pattern is nonobstructed. No definite evidence of an abnormal mass or collection. Scoliosis. I suspect some volume loss superior endplate L2. Procedure Note Regan Joe MD - 07/27/2024 EXAMINATION: ABDOMEN CLINICAL INFORMATION: Pain. Distention COMPARISON: 01/11/2024 TECHNIQUE: Supine frontal view of the abdomen FINDINGS: There are surgical clips in the right upper quadrant. There is extensivearterial calcification. There is osteopenia. There is a moderate amount gas within nondistended loops of small andlarge bowel throughout the abdomen and pelvis. The bowel gas pattern isnonobstructed. No definite evidence of an abnormal mass or collection. Scoliosis. I suspect some volume loss superior endplate L2. IMPRESSION: Nonobstructive gas pattern. -------- FINAL REPORT -------- Dictated By: Regan Joe Dictated Date: 07/27/2024 08:19 ET Assigned Physician: Regan Joe Reviewed and Electronically Signed By: Regan Joe Signed Date: 07/27/2024 08:21 ET Workstation ID: [id number] Transcribed By: Self Edit Transcribed Date: 07/27/2024 08:19 ET Eryn Lauren ENGINEERING LABORATORY TECHNICIAN IMG XR PROCEDURES Final Resul t * COLONOSCOPY (07/01/2016 9:36 AM EST) Anatomical Region Laterality Modality Endoscopy Historical Provider GI~PROCEDURE ORDERABLES F inal Result from Last 3 Months or Most Recently Relevant to Health Maintenance Insurance [employer] MEDICARE ADVANTAGE [place]ICAID - [place] Care Teams Sprayer Leather Relationship Specialty Start Date End Date Diandra Grady MD [address] [place] [address] Dr [address] [facility] [place] [address] PCP - General Internal Medicine 07/15/21
== END 2024-09-05 17:43 | disposition home or self-care (01) ==
PROVIDERS: PCP Internal Medicine; Visit Provider Internal Medicine
DX: E11.65 Type 2 diabetes mellitus with hyperglycemia (principal); I73.9 Peripheral vascular disease, unspecified; K86.89 Other specified diseases of pancreas; S32.020S Wedge compression fracture of second lumbar vertebra, sequela; Z72.0 Tobacco use; I25.10 Atherosclerotic heart disease of native coronary artery without angina pectoris; E78.00 Pure hypercholesterolemia, unspecified; I10 Essential (primary) hypertension; R51.9 Headache, unspecified

== ENCOUNTER → 2024-09-05 15:54 | Outpatient (BNVA) | payer MEDICARE, MEDICAID, SELFPAY | PROVIDERS: PCP Internal Medicine; Visit Provider Internal Medicine | DX: K86.89 Other specified diseases of pancreas (principal); S32.020S Wedge compression fracture of second lumbar vertebra, sequela; I73.9 Peripheral vascular disease, unspecified; E78.00 Pure hypercholesterolemia, unspecified; I10 Essential (primary) hypertension; E11.65 Type 2 diabetes mellitus with hyperglycemia; R51.9 Headache, unspecified | CPT/HCPCS: 99212 ==

== ENCOUNTER 2024-09-12 15:24 | Outpatient (AMB) | payer MEDICARE, MEDICAID, SELFPAY ==
--- NOTE | 2024-09-12 15:40 | MHC.PC.OV ---
Vital Signs 09/12/24 15:42 Height 5 ft 7 in Weight 126 lb BMI 19.7 BP 108/60 Blood Pressure Location Lt brachial Position Sitting Pulse 91 Pulse Source Pulse Oximeter Temp 97.5 F Temp Source Temporal Artery Scan Pulse Oximetry (%) 97 Oxygen Delivery Method Room Air Intake Visit Reasons: Med Follow - UP Electronic Health Records Specialist Required: No Accompanied by: Self / Same As Patient Allergies No Known Allergies Allergy (Verified 09/12/24 15:43) Tobacco use date assessed: 09/05/24 Dental Screening Dental Screen Date: 08/04/24 [facility] Medical History (Updated 09/05/24 @ 16:43 by Diandra Grady MD) Right iliac artery stenosis Osteoarthritis Hypercholesterolemia Coronary artery disease Attention deficit disorder Right radial fracture Pulmonary nodule Diabetic nephropathy Carotid stenosis Anxiety and depression Hypertension Type 2 diabetes mellitus with hyperglycemia Lumbar spondylosis Surgical History History of tooth extraction H/O endarterectomy Amputation toe Family History Father Stroke Mother Pancreatic cancer Son Sleep apnea Social History Housing: House Alcohol intake: current Alcohol intake frequency: holidays/special occasions only Alcohol type: wine Patient Tobacco Use Status: Current everyday Tobacco user Tobacco use type: Cigarette Cigarette Packs Per Day: 0.25 Cigarettes Per Day: 3 e-Cigarette/Vaping Use: Never Used Second Hand Smoke Exposure: Yes service: No Current occupational status: unemployed Cognitive needs: No Hearing needs: No Vision needs: Yes Questionnaire Thrive Questionnaire Date Thrive assessed: 08/04/24 PATRIC-7 AMB Questionnaire PATRIC-7 Date PATRIC - 7 assessed: 08/04/24 Source: Developed by Drs. George Andrew, Marion Vasques, Milad Goncalves and colleagues, with an educational jaylen from [employer]. Physical exam (Primary Care) Vital Signs: Last Vital Signs Temp 97.5 F 09/12/24 15:42 Pulse 91 09/12/24 15:42 BP 108/60 09/12/24 15:42 Pulse Ox 97 09/12/24 15:42 Oxygen Delivery Method Room Air 09/12/24 15:42 BMI result Body Mass Index 19.7 Tobacco/Smoking Status: Tobacco use Status Tobacco use date assessed 09/05/24 09/12/24 15:42 Patient Tobacco Use Status Current everyday Tobacco 09/12/24 15:42 Tobacco use type Cigarette 09/12/24 15:42 e-Cigarette/Vaping Use Never Used 09/12/24 15:42 Thrive Assessment: Date of Thrive Assessment Date Thrive assessed 08/04/24 09/12/24 15:42 Const General: alert; No acute distress Eyes Conjunctivae: conjunctivae normal Resp Auscultation: clear to auscultation bilaterally Cardio Rate: regular rate Rhythm: regular rhythm GI Inspection: Yes normal to inspection Extrem General: Yes normal to inspection and No edema Results AMB Hemoglobin A1c AMB Hemoglobin A1c 6.2 % Last Edit by GABI Escobar on 09/12/24 16:18 Results Reviewed Results Reviewed: Laboratory Last Values Hgb A1c (Clinic) 6.2 % (4.0-6.0) H 09/12/24 15:35 Coding Level of Care Code Est Pt Level 4 (14780) Complex EM visit Add On G2211 Diagnoses Compression fracture of L2 vertebra, sequela S32.020S Encounter type: sequela Lumbar vertebra fracture level: L2 Type 2 diabetes mellitus with hyperglycemia, without long-term current use of insulin E11.65 Diabetes mellitus terminal gauger insulin use: without skilled nursing use Tobacco abuse Z72.0 Essential hypertension I10 Hypertension type: essential hypertension Coronary artery disease involving [place] coronary artery of [place] heart without angina pectoris I25.10 Associated angina: without angina Coronary Disease-Associated Artery/Lesion type: [place]oc artery [place] vs. transplanted heart: modoc heart Hypercholesterolemia E78.00 Pancreatic mass K86.89 Assessment & Plan Assessment & Plan (1) Lumbar compression fracture: Comment: MRI 04/2024 mild L1 moderate L2 compression fracture mild progressed degenerative disease lumbar spine moderate right T12-L1 foraminal stenosis progressed moderate right L1-L2 foraminal stenosis Code(s): S32.000A - Wedge compression fracture of unspecified lumbar vertebra, initial encounter for closed fracture Category: Medical Qualifiers: Encounter type: sequela Lumbar vertebra fracture level: L2 Qualified Code(s): S32.020S - Wedge compression fracture of second lumbar vertebra, sequela Plan: Narcotic pain meds: Is being prescribed with the understanding that these medications are potentially addictive and should be used only when absolutely necessary and must always be secured. Any remaining pills should be safely disposed off appropriately. Patient is advised that narcotics can impaired judgment and one should not drive or operate heavy machinery while taking these medications. Never share these medications with anybody and do not leave them unattended. They will not be replaced under any circumstances. (2) Type 2 diabetes mellitus with hyperglycemia: Comment: [facility] Eye doctor Code(s): E11.65 - Type 2 diabetes mellitus with hyperglycemia Category: Medical Qualifiers: Diabetes mellitus terminal gauger insulin use: without terminal gauger use Qualified Code(s): E11.65 - Type 2 diabetes mellitus with hyperglycemia Plan: Decrease the amount of carbohydrate intake, pasta, bread, rice and potatoes are all sugar and that is aside from all the sweet stuff, remember that fruits are good but they are Sweet also. Last hemoglobin A1c in June was 7.0 (3) Tobacco abuse: Comment: still smoking 06/2023 Code(s): Z72.0 - Tobacco use Category: Medical Plan: Patient is strongly advised to stop (4) Hypertension: Code(s): I10 - Essential (primary) hypertension Category: Medical Qualifiers: Hypertension type: essential hypertension Qualified Code(s): I10 - Essential (primary) hypertension Plan: Continue with blood pressure medication. Decrease salt intake and exercise (5) Coronary artery disease: Code(s): I25.10 - Atherosclerotic heart disease of [place] coronary artery without angina pectoris Category: Medical Qualifiers: Associated angina: without angina Coronary Disease-Associated Artery/Lesion type: [place] artery [place] vs. transplanted heart: [place] heart Qualified Code(s): I25.10 - Atherosclerotic heart disease of [place] coronary artery without angina pectoris Plan: Control the cholesterol, weight, blood pressure, diabetes on aspirin 81 mg once a day (6) Hypercholesterolemia: Code(s): E78.00 - Pure hypercholesterolemia, unspecified Category: Medical Plan: Avoid fried foods, chicken skin, eggs, butter margarine, pastries and meat. Be it pork or beef they have a lot of cholesterol LDL goal of less than 70 and triglyceride of less than 150 on Zetia and rosuvastatin (7) Pancreatic mass: Comment: [facility] Code(s): K86.89 - Other specified diseases of pancreas Category: Medical Plan: Patient was seen by Gastroenterology and repeat MRI in 3 months Plan History of Present Illness The patient is a 69-year-old female presenting with a need for follow-up for chronic medical conditions management. She has a detailed medical history of diabetes mellitus, which is managed effectively with recent lab values indicating an A1c of 7.0. Her essential hypertension is being addressed alongside her coronary artery disease, for which she remains on aspirin. Her lipid profile management includes Zetia and rosuvastatin, with dietary alcohol intake advised at no more than 17 units. The patient's osteoporosis led to a lumbar wedge compression fracture, and she has been advised on the importance of smoking cessation to aid in the management of her coronary and peripheral arterial disease. There are plans to repeat an MRI and CT scan per her speech and language specialist's recommendations for further evaluation of ongoing issues, including any potential gastrointestinal concerns. Health Maintenance - Aspirin therapy: 81 mg once daily for cardiovascular protection. - Lipid management: Continue Zetia and rosuvastatin; limit alcohol to <17 units, aim for triglycerides <150 mg/dL. - Repeat MRI in 3 months. - Stool testing as advised by gastroenterology. - Smoking cessation strongly advised. - Repeat CT scan in 3 months. Social History - Smoking: The patient is a smoker; advised to quit due to health risks. - Alcohol: Advised to limit intake to under 17 units. Review of Systems Physical Exam Results - Hemoglobin A1c: 7.0 in June. Plan 1. 0 indicating control. For essential hypertension and coronary artery disease, we are focusing on maintaining a low-dose aspirin regimen and monitoring her heart health closely. In treating her hypercholesterolemia, Zetia and rosuvastatin therapy will continue along with lifestyle modifications such as alcohol limitation and triglyceride monitoring. I have strongly advised smoking cessation for the benefit of her arterial health. Osteoporosis management is ongoing with a focus on maintaining bone health. Follow-up evaluations through MRI and CT scans are scheduled, aligning with gastroenterology recommendations, to support comprehensive chronic condition management.: Patient was informed and verbally consented to the use of an ambient scribe for clinic note documentation during this visit. Discussion Notes I discussed with the patient the importance of smoking cessation and adherence to her prescribed pharmaceutical regimen, particularly concerning aspirin for her coronary health and the management of her cholesterol levels with Zetia and rosuvastatin. I emphasized the importance of maintaining a healthy lifestyle, including limiting alcohol consumption and monitoring triglyceride levels. We also reviewed the indications and timelines for repeating MRI and CT scans, as advised by her speech and language specialist, to further investigate any issues within her chronic disease management. The patient was informed of the ongoing need to monitor her conditions regularly and adhere to the health maintenance guidelines discussed. Patient Instructions - Continue taking your medications as prescribed. - Cease smoking immediately for health benefits. - Limit alcohol intake to less than 17 units. - Follow up on MRI and CT scan appointments as scheduled. - Continue with current lifestyle and dietary recommendations. - Report any new symptoms or concerns promptly. Orders: Orders AMB Hemoglobin A1c Today E11.65 - Type 2 diabetes mellitus with hyperglycemia Medications: Refilled oxycodone May partial fill 15 mg PO Q6H PRN 115 tabs 0RF pain 30 days M51.36 - Other intervertebral disc degeneration, lumbar region, S32.000A - Wedge compression fracture of unspecified lumbar vertebra, initial encounter for closed fracture
[2024-09-12 15:42] VITALS: BP 108/60; PULSE 91; TEMP 36.4; O2SAT 97; BMI 19.7
--- OUTSIDE RECORDS SUMMARY | 2024-09-12 18:19 | XMS_ITS | Encounter Summary ---
Author Organization [facility] Address [address] [place] [address] Care Team Providers Care Pipe Bowl Paint Trimmer Name Role Phone Diandra Grady MD Primary Care Provider [phone] Reason for Visit * Reason Onset Date Comments medication question 09/02/2024 Encounter Details Date Type Department Care Team (Late st Contact Info) Description 09/02/2024 Telephone Gastroenterology - [address] [place] [address] Brandie Bales MD [address] [place], [place] [phone] medication question Social History Tobacco Use Types [...] Care Team (Late st Contact Info) Description 09/29/2024 3:00 PM EDT Office Visit Gastroenterology - [address] [place] [phone] Eryn Lauren, PULMONARY FUNCTION TECHNOLOGIST [address] [facility] [address] [place] [address] 11/09/2024 2:40 PM EDT Office Visit Gastroenterology - [address] [place] [phone] Brandie Bales MD [address] [address] documented as of this encounter Visit Diagnoses Not on filedocumented in this encounter Care Teams Pipe Bowl Paint Trimmer Relationship Specialty Start Date End Date Miguel A, MD Diandra [address] [place] [address] [address] [facility] [place] [address] PCP - General Internal Medicine 07/15/21 documented as of this encounter
--- OUTSIDE RECORDS SUMMARY | 2024-09-12 18:19 | XMS_ITS | Encounter Summary ---
Author Organization [facility] Address [address] [place] [address] Care Team Providers Care Test Borer Name Role Phone Diandra Grady MD Primary Care Provider [phone] Encounter Details Date Type Department Care Team (Late st Contact Info) Description 09/12/2024 Telephone Gastroenterology - [address] [facility] [address] [place] [phone] Eryn Lauren, BILLING REPRESENTATIVE [address] [place], [place] [phone] Social History Tobacco Use Types Packs/Day Years Used Date Smoking Tobacco: Former Cigarettes Smokeless Tobacco: Never Comments Unknown Sex and Gender Information Value Date Recorded Sex Assigned at Not on file Legal Sex Female 3:19 PM EST Gender Identity Not on file Sexual Orientation Not on file documented as of this encounter Progress Notes * Carmen Vo MA - 09/12/2024 11:27 AM EST I RESENT ALL OF THE INFORMATION REQUIRED TO [facility]. * Eleanor Reynaga - 09/12/2024 11:13 AM EST PT REFERRED TO [facility] FOR EUS PROCEDURE BUT THEY WERE ONLY SENT A DEMO SHEET. THEY ARE REQ: -OV NOTES -MED LIST -LABS -IMAGING FAX#[phone] documented in this encounter Plan of Treatment Upcoming Encounters Date Type Department Care Team (Late st Contact Info) Description 09/29/2024 3:00 PM EDT Office Visit Gastroenterology - [address] [place] [address] [address] [place] [phone] Eryn Lauren, BILLING REPRESENTATIVE [address] [facility] [address] [place] [address] 11/09/2024 2:40 PM EDT Office Visit Gastroenterology - [address] [place] [address] [address] [place] [phone] Brandie Bales MD [address] [facility] [address] [address] documented as of this encounter Visit Diagnoses Not on filedocumented in this encounter Care Teams Test Borer Relationship Specialty Start Date End Date Diandra Grday MD [address] [place] [address] [address] [facility] [place] [address] PCP - General Internal Medicine 07/15/21 documented as of this encounter
--- OUTSIDE RECORDS SUMMARY | 2024-09-12 18:19 | XMS_ITS | Encounter Summary ---
Author Organization [facility] Address [address] [place] [address] Care Team Providers Care Casing Running Machine Tender Name Role Phone Maren Martel JUDY Primary Care Provider [phone] Reason for Visit * Reason Comments Removable Prosthetics Encounter Details Date Type Department Care Team (Late st Contact Info) Description 09/02/2024 3:40 PM EST Office Visit [facility] [address] [place] [phone] Maren Martel, JUDY [address] [place], [place] [phone] Missing teeth, acquired (Primary Dx) Social History [...] Denture and Mandibular Complete Denture Final Impressions. Dietitian Therapeutic: No Chief Complaint Patient presents with Removable [...] using PARQ. Dental procedures in this visit [id number] - COMPLETE DENTURE - IN PROCESS (Completed) [...] Description 09/13/2024 4:20 PM EST Office Visit [address] [phone] Maren Martel, JUDY [address] [place], [place] [phone] 09/20/2024 4:20 PM EDT Office Visit [address] [phone] Maren Martel, JUDY [address] [place] [address] 09/27/2024 3:00 PM EDT Office Visit [address] [phone] Maren Martel, JUDY [address] [place], [place] [phone] 10/04/2024 3:00 PM EDT Office Visit [address] [phone] Maren Martel, UJDY [address] [place], [place] [phone] Scheduled Orders Name Type Priority Associated Diagnoses Order Schedule Max COMPLETE DENTURE - MAXILLARY Dental Procedures Routine 1 Occurren dewayne starting 09/02/2024 Max COMPLETE DENTURE - MAXILLARY [...] unspecified documented in this encounter Care Teams Casing Running Machine Tender Relationship Specialty Start Date End Date Maren Martel DMD [address] [place] [address] PCP - General 03/24/19 documented as of this encounter
--- OUTSIDE RECORDS SUMMARY | 2024-09-12 18:19 | XMS_ITS | Encounter Summary ---
Author Organization [facility] Address [address] [place] [address] Care Team Providers Care Manager Order Name Role Phone Diandra Grady MD Primary Care Provider [phone] Encounter Details Date Type Department Care Team (Late st Contact Info) Description 08/25/2024 2:40 PM EST Office Visit Gastroenterology - [address] [facility] [address] [place] [phone] Eryn Lauren NP [address] [facility] [address] of the abdomen (Primary Dx); [...] piece together, she has been seen at [facility] in [place] after a fall she had at her daughters home. Next she was admitted to [facility] for sepsis, but is unclear where the infection was. Lastly she tells me she had an MRI at [facility] and was told to see us [...] (STRATTERA) 25 mg capsule blood sugar diagnostic (OneTouch Verio test strips) test strip cyanocobalamin (VITAMIN [...] in the patient's care. Board Certified Gastroenterology [facility] W [phone] [address] [email or web address] Eryn Lauren NP documented in this encounter Plan of Treatment Upcoming Encounters Date Type Department Care Team (Late st Contact Info) Description 09/29/2024 3:00 PM EDT Office Visit Gastroenterology - [address] [place] [address] [phone] Eryn Lauren NP [address] [address] 11/09/2024 2:40 PM EDT Office Visit Gastroenterology - [address] [phone] Brandie Bales MD [address] [address] documented as of this encounter Results * (ABNORMAL) Comprehensive metabolic panel (08/25/2024 3:19 PM EST) [facility] Sodium 137 133 - 145 mmol/L LAB CHEMISTRY METHOD 08/25/2024 4:32 PM EST [facility] Potassium 4.4 3.5 - 5.5 mmol/L LAB CHEMISTRY METHOD 08/25/2024 4:32 PM [facility] Chloride 103 96 - 110 mmol/L LAB CHEMISTRY METHOD 08/25/2024 4:32 PM [facility] CO2 26 21 - 32 mmol/L LAB CHEMISTRY METHOD 08/25/2024 4:32 PM [facility] Anion Gap 8 3 - 11 LAB CHEMISTRY METHOD 08/25/2024 4:32 PM [facility] Glucose 185(H) 70 - 100 mg/dL LAB CHEMISTRY METHOD 08/25/2024 4:32 PM [facility] BUN 20 5 - 25 mg/dL LAB CHEMISTRY METHOD 08/25/2024 4:32 PM [facility] Creatinine 1.42(H) 0.50 - 1.10 mg/dL LAB CHEMISTRY METHOD 08/25/2024 4:32 PM [facility] eGFR 40(L) >=60 mL/min/1. 73m2 LAB CHEMISTRY METHOD 08/25/2024 4:32 PM [facility] Comment:Calculation based on the??Chronic Kidney Disease Epidemiology Collaboration (CKD-EPI) equation refit??without adjustment for race. BUN/Creatinine Ratio 14.1 LAB CHEMISTRY METHOD 08/25/2024 4:32 PM [facility] Calcium 9.5 8.5 - 10.5 mg/dL LAB CHEMISTRY METHOD 08/25/2024 4:32 PM [facility] AST (SGOT) 20 10 - 42 unit/L LAB CHEMISTRY METHOD 08/25/2024 4:32 PM [facility] ALT (SGPT) 15 10 - 60 unit/L LAB CHEMISTRY METHOD 08/25/2024 4:32 PM [facility] Alkaline Phosphatase 76 42 - 121 unit/L LAB CHEMISTRY METHOD 08/25/2024 4:32 PM [facility] Total Protein 6.8 6.0 - 8.0 g/dL LAB CHEMISTRY METHOD 08/25/2024 4:32 PM EST [facility] Albumin 3.5 3.2 - 5.0 g/dL LAB CHEMISTRY METHOD 08/25/2024 4:32 PM EST [facility] Total Bilirubin 0.3 0.0 - 1.4 mg/dL LAB CHEMISTRY METHOD 08/25/2024 4:32 PM EST [facility] Blood Venous blood specimen / Unknown Venipuncture / Unknown 08/25/2024 3:19 PM EST 08/25/2024 3:58 PM EST us Eryn Lauren OBSTETRICS GYNECOLOGY PHYSICIAN LAB BLOOD ORDERABLES Final Re sult [facility] [address] [place] [address], [place] [phone] documented in this encounter Visit Diagnoses Diagnosis [...] 08/25/2024 documented in this encounter Care Teams Manager Order Relationship Specialty Start Date End Date Diandra Grady MD [address] [place] [address] [address] [facility] [place] [address] PCP - General Internal Medicine 07/15/21 documented as of this encounter
--- OUTSIDE RECORDS SUMMARY | 2024-09-12 18:19 | XMS_ITS | Encounter Summary ---
Author Organization [facility] Address [address] [place] [address] Care Team Providers Care Healthcare Financial Analyst Name Role Phone Diandra Grady MD Primary Care Provider [phone] Encounter Details Date Type Department Care Team (Late st Contact Info) Description 09/09/2024 Telephone Gastroenterology - [address] [place] [phone] Eryn Lauren NP [address] [place] [address] Social History Tobacco Use Types Packs/Day Years Used Date Smoking Tobacco: Former Cigarettes Smokeless Tobacco: Never Comments Unknown Sex and Gender Information Value Date Recorded Sex Assigned at Not on file Legal Sex Female 3:19 PM EST Gender Identity Not on file Sexual Orientation Not on file documented as of this encounter Progress Notes * Eryn Lauren NP - 09/09/2024 11:25 AM EST Spoke to patient after reviewing MRI with Dr. Bales. Will do EUS. Procedure explained to pt. Order sent to Dr. Manuel Hardin at [facility]. documented in this encounter Plan of Treatment Upcoming Encounters Date Type Department Care Team (Late st Contact Info) Description 09/29/2024 3:00 PM EDT Office Visit Gastroenterology - [address] [place] [phone] Eryn Lauren, PAWAN 299 [facility] [address] [address] 11/09/2024 2:40 PM EDT Office Visit Gastroenterology - [address] [place] [phone] Brandie Bales MD 299 [facility] [address] [address] documented as of this encounter Visit Diagnoses Not on filedocumented in this encounter Care Teams Healthcare Financial Analyst Relationship Specialty Start Date End Date Diandra Grady MD [address] [place] [address] [address] [facility] [place] [address] PCP - General Internal Medicine 07/15/21 documented as of this encounter
--- OUTSIDE RECORDS SUMMARY | 2024-09-12 18:19 | XMS_ITS | Clinical Summary ---
Author Organization [facility] 299 [facility] Address [address] [place] [address] Phone Care Team Providers Care Painter Aircraft Name Role Phone Diandra Grady MD Primary Care Provider [phone] Allergies No known active allergies Medications Trulicity [...] Encounters Date Type Department Care Team Description 09/12/2024 Telephone Gastroenterology - [address] [address] Eryn Lauren, PAWAN 09/09/2024 Telephone Gastroenterology - [address] [address] Eryn Lauren, COMPUTER APPLICATIONS DEVELOPER 09/08/2024 3:00 PM EST Office Visit Gastroenterology - [address] [place] [phone] Eryn Lauren, COMPUTER APPLICATIONS DEVELOPER Cystic mass of pancreas (Primary Dx); Diarrhea, unspecified type; Type 1 diabetes mellitus with diabetic autonomic (poly)neuropathy ([facility]) 09/02/2024 Telephone Gastroenterology - [address] [address] Brandie Bales MD medication question 08/26/2024 Telephone Gastroenterology - [address] [place] [phone] Rosemary Farmer MA Results 08/25/2024 2:40 PM EST Office Visit Gastroenterology - [address] [place] [phone] Eryn Lauren, COMPUTER APPLICATIONS DEVELOPER Abnormal CT of the abdomen (Primary Dx); Dyspepsia 07/28/2024 Telephone Gastroenterology - [address] [place] [phone] Lucita Rojas MA 07/22/2024 2:31 PM EST - 07/22/2024 11:59 PM EST Hospital Encounter [facility] Xray [address] [place] [phone] Other constipation Discharge Disposition: Home or Self Care 07/22/2024 1:40 PM EST Office Visit Gastroenterology - [address] [address] Eryn Lauren NP Gastroesophageal reflux disease, unspecified [...] - Inhaled Oxygen Concentration - - Weight 58.1 kg (128 lb) 09/08/2024 3:29 PM EST Height 170.2 cm (5' 7 ) 09/08/2024 3:29 PM EST Body Mass Index 20.05 09/08/2024 3:29 PM EST Plan of Treatment Upcoming Encounters Date Type Department Care Team (Late st Contact Info) Description 09/29/2024 3:00 PM EDT Office Visit Gastroenterology - [address] [phone] Eryn Lauren NP [address] [place] [address] 11/09/2024 2:40 PM EDT Office Visit Gastroenterology - [address] [address] Brandie Bales MD [address] [address] Health Maintenance Due Date Last Done Comments [...] K/mcL LAB HEMETOLOGY METHOD 08/25/2024 4:05 PM [facility] RBC 4.50 3.80 - 4.80 M/mcL LAB HEMETOLOGY METHOD 08/25/2024 4:05 PM [facility] Hemoglobin 12.9 11.5 - 16.0 g/dL LAB HEMETOLOGY METHOD 08/25/2024 4:05 PM [facility] Hematocrit 40.2 35.0 - 47.0 % LAB HEMETOLOGY METHOD 08/25/2024 4:05 PM [facility] MCV 90.3 79.0 - 98.0 FL LAB HEMETOLOGY METHOD 08/25/2024 4:05 PM [facility] MCH 29.0 27.0 - 32.0 pcg LAB HEMETOLOGY METHOD 08/25/2024 4:05 PM [facility] MCHC 32.1 32.0 - 37.0 g/dL LAB HEMETOLOGY METHOD 08/25/2024 4:05 PM [facility] RDW 12.6 11.0 - 15.0 % LAB HEMETOLOGY METHOD 08/25/2024 4:05 PM [facility] Platelets 346 130 - 400 K/mcL LAB HEMETOLOGY METHOD 08/25/2024 4:05 PM [facility] MPV 9.4 7.0 - 11.0 FL LAB HEMETOLOGY METHOD 08/25/2024 4:05 PM [facility] NRBC 0.0 <1.0 % LAB HEMETOLOGY METHOD 08/25/2024 4:05 PM [facility] NRBC Absolute 0.00 <0.10 K/mcL LAB HEMETOLOGY METHOD 08/25/2024 4:05 PM [facility] Neutrophils Relative 58.4 % LAB HEMETOLOGY METHOD 08/25/2024 4:05 PM [facility] Lymphocytes Relative 33.4 % LAB HEMETOLOGY METHOD 08/25/2024 4:05 PM [facility] Monocytes Relative 5.8 % LAB HEMETOLOGY METHOD 08/25/2024 4:05 PM [facility] Eosinophils Relative 1.7 % LAB HEMETOLOGY METHOD 08/25/2024 4:05 PM [facility] Basophils Relative 0.4 % LAB HEMETOLOGY METHOD 08/25/2024 4:05 PM [facility] Immature Granulocytes Relative 0.3 % LAB HEMETOLOGY METHOD 08/25/2024 4:05 PM [facility] Neutrophils Absolute 5.27 1.50 - 7.00 K/mcL LAB HEMETOLOGY METHOD 08/25/2024 4:05 PM [facility] Lymphocytes Absolute 3.01 1.00 - 5.00 K/mcL LAB HEMETOLOGY METHOD 08/25/2024 4:05 PM EST [facility] Monocytes Absolute 0.52 0.20 - 1.00 K/mcL LAB HEMETOLOGY METHOD 08/25/2024 4:05 PM EST [facility] Eosinophils Absolute 0.15 0.00 - 0.50 K/mcL LAB HEMETOLOGY METHOD 08/25/2024 4:05 PM [facility] Basophils Absolute 0.04 0.00 - 0.20 K/mcL LAB HEMETOLOGY METHOD 08/25/2024 4:05 PM [facility] Immature Granulocytes Absolute 0.03 0.00 - 0.03 K/mcL LAB HEMETOLOGY METHOD 08/25/2024 4:05 PM [facility] Blood Venous blood specimen / Unknown Venipuncture / Unknown 08/25/2024 3:19 PM EST 08/25/2024 3:58 PM EST Eryn Lauren COMPUTER APPLICATIONS DEVELOPER LAB BLOOD ORDERABLES Final Re sult [facility] [address] [place] [address], [place] [phone] * Lipase (08/25/2024 3:19 PM EST) [facility] Lipase 41 13 - 75 unit/L LAB CHEMISTRY METHOD 08/25/2024 4:32 PM EST [facility] Blood Venous blood specimen / Unknown Venipuncture / Unknown 08/25/2024 3:19 PM EST 08/25/2024 3:58 PM EST Eryn Lauren COMPUTER APPLICATIONS DEVELOPER LAB BLOOD ORDERABLES Final Re sult [facility] [address] [place] [address], [place] [phone] * Amylase (08/25/2024 3:19 PM EST) Pathologist [facility] Amylase 80 25 - 115 unit/L LAB CHEMISTRY METHOD 08/25/2024 4:32 PM [facility] Blood Venous blood specimen / Unknown Venipuncture / Unknown 08/25/2024 3:19 PM EST 08/25/2024 3:58 PM EST us Eryn Lauren COMPUTER APPLICATIONS DEVELOPER LAB BLOOD ORDERABLES Final Re sult [facility] [address] [place] [address], [place] [phone] * (ABNORMAL) Comprehensive metabolic panel (08/25/2024 3:19 PM EST) [facility] Sodium 137 133 - 145 mmol/L LAB CHEMISTRY METHOD 08/25/2024 4:32 PM [facility] Potassium 4.4 3.5 - 5.5 mmol/L LAB CHEMISTRY METHOD 08/25/2024 4:32 PM [facility] Chloride 103 96 - 110 mmol/L LAB CHEMISTRY METHOD 08/25/2024 4:32 PM [facility] CO2 26 21 - 32 mmol/L LAB CHEMISTRY METHOD 08/25/2024 4:32 PM [facility] Anion Gap 8 3 - 11 LAB CHEMISTRY METHOD 08/25/2024 4:32 PM [facility] Glucose 185(H) 70 - 100 mg/dL LAB CHEMISTRY METHOD 08/25/2024 4:32 PM [facility] BUN 20 5 - 25 mg/dL LAB CHEMISTRY METHOD 08/25/2024 4:32 PM [facility] Creatinine 1.42(H) 0.50 - 1.10 mg/dL LAB CHEMISTRY METHOD 08/25/2024 4:32 PM [facility] eGFR 40(L) >=60 mL/min/1. 73m2 LAB CHEMISTRY METHOD 08/25/2024 4:32 PM [facility] Comment:Calculation based on the??Chronic Kidney Disease Epidemiology Collaboration (CKD-EPI) equation refit??without adjustment for race. BUN/Creatinine Ratio 14.1 LAB CHEMISTRY METHOD 08/25/2024 4:32 PM [facility] Calcium 9.5 8.5 - 10.5 mg/dL LAB CHEMISTRY METHOD 08/25/2024 4:32 PM [facility] AST (SGOT) 20 10 - 42 unit/L LAB CHEMISTRY METHOD 08/25/2024 4:32 PM [facility] ALT (SGPT) 15 10 - 60 unit/L LAB CHEMISTRY METHOD 08/25/2024 4:32 PM [facility] Alkaline Phosphatase 76 42 - 121 unit/L LAB CHEMISTRY METHOD 08/25/2024 4:32 PM [facility] Total Protein 6.8 6.0 - 8.0 g/dL LAB CHEMISTRY METHOD 08/25/2024 4:32 PM [facility] Albumin 3.5 3.2 - 5.0 g/dL LAB CHEMISTRY METHOD 08/25/2024 4:32 PM [facility] Total Bilirubin 0.3 0.0 - 1.4 mg/dL LAB CHEMISTRY METHOD 08/25/2024 4:32 PM [facility] Blood Venous blood specimen / Unknown Venipuncture / Unknown 08/25/2024 3:19 PM EST 08/25/2024 3:58 PM EST us Eryn Lauren COMPUTER APPLICATIONS DEVELOPER LAB BLOOD ORDERABLES Final Re sult [facility] [address] [place] [address], [place] [phone] * XR Abdomen 1 View (07/22/2024 2:44 PM EST) Anatomical Region Laterality Modality Body Radiographic Madonna ging 07/27/2024 8:19 AM EST Impressions 07/27/2024 8:21 AM EST Nonobstructive gas pattern. -------- FINAL REPORT -------- Dictated By: Regan Joe Dictated Date: 07/27/2024 08:19 ET Assigned Physician: Regan Joe Reviewed and Electronically Signed By: Regan Joe Signed Date: 07/27/2024 08:21 ET Workstation ID: [id number] Transcribed By: Self Edit Transcribed Date: 07/27/2024 [...] Signed Date: 07/27/2024 08:21 ET Workstation ID: [id number] Transcribed By: Self Edit Transcribed Date: 07/27/2024 08:19 ET Eryn Lauren COMPUTER APPLICATIONS DEVELOPER IMG XR PROCEDURES Final Resul t * COLONOSCOPY (07/01/2016 9:36 AM EST) Anatomical Region Laterality Modality Endoscopy us Historical Provider GI~PROCEDURE ORDERABLES F inal Result from Last 3 Months or Most Recently Relevant to Health Maintenance Insurance [employer] MEDICARE ADVANTAGE MEDICAID - [place] Care Teams Painter Aircraft Relationship Specialty Start Date End Date Diandra Grady MD [address] [place] [address] [address] [facility] [place] [address] PCP - General Internal Medicine 07/15/21
--- OUTSIDE RECORDS SUMMARY | 2024-09-12 18:19 | XMS_ITS | Encounter Summary ---
Author Organization [facility] Address [address] [place] [address] Care Team Providers Care Fruit Culler Name Role Phone Diandra Grady MD Primary Care Provider [phone] Encounter Details Date Type Department Care Team (Late st Contact Info) Description 09/08/2024 3:00 PM EST Office Visit Gastroenterology - [address] [facility] [address] [place] [phone] Eryn Lauren, PAWAN [address] [facility] [address] [address] Cystic mass of pancreas (Primary Dx); Diarrhea, unspecified type; Type 1 diabetes mellitus with diabetic autonomic (poly)neuropathy (CMS/HCC) Social History Tobacco Use Types Packs/Day Years [...] Mass Index 20.05 09/08/2024 3:29 PM EST documented in this encounter Progress Notes * Eryn Lauren, A/C TECHNICIAN - 09/08/2024 3:00 PM EST CHIEF COMPLAINT: Abnormal MRI (double duct irregularity) DATE OF LAST ENDOSCOPIC PROCEDURES: HPI: Lena Bill is a 69 y.o. old female who was originally referred to us by Diandra Grady MD now presents to the gastroenterology department today for a follow up. She is here with her and her daughter is present on speaker phone. We reviewed the MRI that she had recently at [facility] for unclear reasons. I reviewed this with her and her as well as with Dr. Bales. Herliver functions, amylase and lipase are WNL. She denies abdominal pain. Her weight is stable. She has issues with acid reflux and is taking Omeprazoe and simethicone with minimal improvement. She does not use NSAID's. She does have mild nausea for the past year without vomiting. She is on a GLP-1 but feels it did not increase her preexisting symptoms of GERD and nausea. She also has chronic loose-watery diarrhea with incontinence but no bleeding.. She takes imodium with only minimal improvement. I will check stool cultures to rule out C.Diff or infectious colitis. We will refer her to [facility] for EUS. ROS: GENERAL: No malaise, significant weight loss or fever HEENT: No changes in hearing or vision or swallowing problems RESPIRATORY: No cough, wheezing or shortness of breath CARDIOVASCULAR: No chest pain, leg swelling or palpitations GI: See H&P The remainder of the review of systems is reviewed and negative. PAST MEDICAL HISTORY: No past medical history on file. PAST SURGICAL HISTORY: Past Surgical History: Procedure Laterality Date CAROTID ENDARTERECTOMY TOE AMPUTATION SOCIAL HISTORY: 1-2 pack cigaretts daily 1 Baileys in her AM coffee daily FAMILY HISTORY: No family history on file. ACTIVE MEDICATIONS: Current Outpatient Medications Medication Sig Dispense Refill albuterol HFA (PROAIR HFA ; PROVENTIL HFA ; VENTOLIN HFA) 90 mcg/actuation inhaler ALPRAZolam (XANAX) 2 mg tablet atomoxetine (STRATTERA) 25 mg capsule blood sugar diagnostic (NanoAntibioticsuch Verio test strips) test strip cyanocobalamin (VITAMIN [...] oxyCODONE (ROXICODONE) 15 mg immediate release tablet promethazine (PHENERGAN) 25 mg tablet rosuvastatin (CRESTOR) [...] No Known Allergies PHYSICAL EXAM: Visit Vitals Smoking Status Former APPEARANCE: Alert and in no acute distress EYES: PERRLA, conjunctiva and sclera normal. HEART: RRR with normal S1 and S2, no murmurs appreciated LUNG: clear to auscultation ABDOMEN: NEURO: Awake, alert and oriented x 3 Assessment & Plan Cystic mass of pancreas Orders: Cancer antigen 19-9; Future Repeat MRI in 3 months Diarrhea, unspecified type Orders: Calprotectin, stool; Future Fecal fat, qualitative; Future Clostridium difficile toxin; Future Gastrointestinal pathogens molecular study; Future Type 1 diabetes mellitus with diabetic autonomic (poly)neuropathy (CMS/HCC) OV 3 weeks I would like to thank Diandra Grady MD for the opportunity to partake in the patient's care. Board Certified Gastroenterology [facility] W [phone] [place] [phone] [email or web address] Eryn Lauren NP documented in this encounter Plan of Treatment Upcoming Encounters Date Type Department Care Team ([facility] st Contact Info) Description 09/29/2024 3:00 PM EDT Office Visit Gastroenterology - [address] [phone] Eryn Lauren NP [address] [facility] [address] [place] [address] 11/09/2024 2:40 PM EDT Office Visit Gastroenterology - [address] [phone] Brandie Bales MD [address] [address] Scheduled Orders Name Type Priority Associated Diagnoses Order Schedule Cancer antigen 19-9 Lab Routine Cystic mass of pancreas 1 Occurrences starting 09/08/2024 until 09/08/2025 Calprotectin, stool Lab Routine Diarrhea, unspecified type 1 Occurrences starting 09/08/2024 until 09/08/2025 Fecal fat, qualitative Lab Routine Diarrhea, unspecified type 1 Occurrences starting 09/08/2024 until 09/08/2025 Clostridium difficile toxin Microbiology Routine Diarrhea, unspecified type 1 Occurrences starting 09/08/2024 until 09/08/2025 Gastrointestinal pathogens molecular study Microbiology Routine Diarrhea, unspecified type Type 1 diabetes mellitus with diabetic autonomic (poly)neuropathy (CMS/HCC) 1 Occurrences starting 09/08/2024 until 09/08/2025 documented as of this encounter Visit Diagnoses Diagnosis Cystic mass of pancreas- Primary Diarrhea, unspecified type Type 1 diabetes mellitus with diabetic autonomic (poly)neuropathy ([facility]) documented in this encounter Care Teams Fruit Culler Relationship Specialty Start Date End Date Diandra Grady MD [address] [place] [address] [address] [facility] [place] [address] PCP - General Internal Medicine 07/15/21 documented as of this encounter
--- OUTSIDE RECORDS SUMMARY | 2024-09-12 18:19 | XMS_ITS | Clinical Summary ---
Author Organization [facility] Facility Address [address] [place] [address] Care Team Providers Care Geology Teacher Name Role Phone Unavailable Primary Care Provider [...] times a day Active Chantix Continuing Month Arutro 1 MG tablet Take 1 mg by [...]
--- OUTSIDE RECORDS SUMMARY | 2024-09-12 18:19 | XMS_ITS | Clinical Summary ---
Author Organization [facility] Address [address] [place] [address] Care Team Providers Care Cutter V Groove Name Role Phone Maren Martel DMD Primary Care Provider [phone] Source Comments PLEASE NOTE, if this patient [...] Description 09/02/2024 3:40 PM EST Office Visit [facility] [address] [place] [phone] Maren Martel, DMD Missing teeth, acquired (Primary Dx) 07/29/2024 2:00 PM EST Office Visit [facility] [address] [place] [phone] Yoo-Marko Roa, DDS Retained tooth root (Primary Dx); Caries 07/29/2024 11:00 AM EST Office Visit [facility] [address] [place] [phone] Maren Martel, DMD Missing teeth, acquired (Primary Dx) 07/29/2024 Travel 06/16/2024 2:20 PM EST Office Visit [facility] [address] [place] [address] Antonio Galicia RHD Encounter for [...] Description 09/13/2024 4:20 PM EST Office Visit [facility] [address] [place] [phone] Maren Martel, DMD [address] [place] [address] 09/20/2024 4:20 PM EDT Office Visit [facility] [address] [place] [phone] Maren Martel, DMD [address] [place] [address] 09/27/2024 3:00 PM EDT Office Visit [address] [phone] Maren Martel, JUDY [address] [place] [address] 10/04/2024 3:00 PM EDT Office Visit [facility] [address] [place] [phone] Maren Martel, DMD [address] [place], [place] [phone] Health Maintenance Due Date Last Done Comments [...] Bone Density Screening 2018 Falls Prevention 2018 [id number] ( season) 2024 Imm-Influenza (#1) 2024 06/19/2017, [...] AM EST from Last 3 Months Insurance ID MEDICAID DENTAL Care Teams Cutter V Groove Relationship Specialty Start Date End Date Maren Martel DMD [address] [place] [id number] PCP - General 03/24/19
--- OUTSIDE RECORDS SUMMARY | 2024-09-12 18:19 | XMS_ITS | Encounter Summary ---
Author Organization [facility] Address [address] [place] [address] Care Team Providers Care Rubber Cutter Name Role Phone Diandra Grady MD Primary Care Provider [phone] Reason for Visit * Reason Onset Date Comments Results 08/26/2024 Encounter Details Date Type Department Care Team (Late st Contact Info) Description 08/26/2024 Telephone Gastroenterology - [address] [place] [address] Rosemary Farmer MA Results Social [...] Visit Gastroenterology - 299 [address] [facility] [address] [place] [phone] Eryn Lauren NP [address] [facility] [address] [place] [address] 11/09/2024 2:40 PM EDT Office Visit Gastroenterology - 299 [address] [facility] [address] [place] [phone] Brandie Bales MD [address] [facility] [address] [place] [address] documented as of this encounter Visit Diagnoses Not on filedocumented in this encounter Care Teams Rubber Cutter Relationship Specialty Start Date End Date Diandra Grady MD [address] [place] [address] [address] [facility] [place] [address] PCP - General Internal Medicine 07/15/21 documented as of this encounter
--- OUTSIDE RECORDS SUMMARY | 2024-09-12 18:19 | XMS_ITS | Patient Health Record ---
Author Organization [facility] Address [address] [facility] [place] [address] Care Team Providers Care Labor Relations Specialist Name Role Phone Miguel A, Diandra Primary Care Provider Unavailabl e Black, Camryn Unavailable [phone] Reason For Referral No Information Medications Medication [...] Problem Acquired hammer toe of right foot (3988143114923499 ) Other hammer toe(s) (acquired), right foot (M20.41) Active confirmed Problem Acquired hammer toe of left foot (6956720245893573 ) Other hammer toe(s) (acquired), left foot (M20.42) Active confirmed Problem Polyneuropathy due to type 2 diabetes mellitus (442960643) Type 2 diabetes mellitus with diabetic polyneuropathy (E11.42) Active confirmed Encounters Encounter Location Date Provider Diagnosis [facility] [address] [place] [address] 09/06/2024 Camryn Lazaro Plan Of Treatment Pending Test Test Name Order Date [id number] NAIL, 6 OR MORE 10/09/2015 [id number] NAIL, 6 OR MORE 11/01/2015 [id number] NAIL, 6 OR MORE 01/02/2017 [id number] NAIL, 6 OR MORE 08/10/2017 [id number] NAIL, 1-5 12/25/2015 [id number] NAIL, 1-5 01/09/2016 27108- Debride <25 sq cm 10/09/2015 [id number] SKIN/TISSUE 01/09/2016 [id number] SKIN/TISSUE 11/01/2015 86910-[id number] SKIN/TISSUE 11/29/2015 75155-[id number] SKIN/TISSUE 12/25/2015 79516-XWVB SKIN LESIONS, OVER 4 01/03/20 17 75901-MFVK SKIN LESIONS, OVER 4 08/10/19 18 62021-HWRQ SKIN LESIONS, 2 TO 4 10/09/19 16 Insurance Providers Payer Name Payer Address Payer Phone Subscriber Number Group Number Insured Name Patient Relationship to Insured Coverage Start Date Coverage End Date A[employer] Medicare Complete [address] [address] [place] [id number] Lena Bill Self - patient is the insured Medical (General) History Medical History History ICD Code Anxiety Arthritis Cataracts Depression type II diabetes Neuropathy High blood pressure Headaches Psychiatric disorder Back,Hip,and Knee pain Reflux Measles Mumps Chicken pox Surgical History Surgery Date(Month/Year) Stent at [facility] 11-23-2015 Hospitalization History Reason Date(Month/Year) [facility] - stent iliac artery & amputati on of toe 12/2015 [facility] Left Carotid artery 07/21/17
--- OUTSIDE RECORDS SUMMARY | 2024-09-12 18:19 | XMS_ITS ---
Author Organization [facility] Address [address] [place] [address] Care Team Providers Care Data Reporting Analyst Name Role Phone Diandra Grady Primary Care Provider Unavailabl e Black, Camryn Unavailable [phone] REASON FOR VISIT Pcp ref Encounters Encounter Location Date Provider Diagnosis [facility] [address] [facility] [place] [address] 09/06/2024 Camryn Black Plan Of Treatment No Information Progress Notes * FLY, PepeOB:1955 (69 yo F)Acc No.[id number]:09/06/2024 Patient:?Lena BILL :1955???Age:69 Y???Sex:Female Address:[address] [place] [address] * true * Date:? Generated for Jamil crowe/Deny/eTransmitting on:?09/12/2024 06:19 PM EST
== END 2024-09-12 16:36 | disposition home or self-care (01) ==
PROVIDERS: PCP Internal Medicine; Visit Provider Internal Medicine
DX: S32.020S Wedge compression fracture of second lumbar vertebra, sequela (principal); E11.65 Type 2 diabetes mellitus with hyperglycemia; Z72.0 Tobacco use; I10 Essential (primary) hypertension; I25.10 Atherosclerotic heart disease of native coronary artery without angina pectoris; E78.00 Pure hypercholesterolemia, unspecified; K86.89 Other specified diseases of pancreas

== ENCOUNTER → 2024-09-12 15:24 | Outpatient (BNVA) | payer MEDICARE, MEDICAID, SELFPAY | PROVIDERS: PCP Internal Medicine; Visit Provider Internal Medicine | DX: S32.020S Wedge compression fracture of second lumbar vertebra, sequela (principal); E11.65 Type 2 diabetes mellitus with hyperglycemia; I10 Essential (primary) hypertension; I25.10 Atherosclerotic heart disease of native coronary artery without angina pectoris; E78.00 Pure hypercholesterolemia, unspecified; K86.89 Other specified diseases of pancreas; Z72.0 Tobacco use | CPT/HCPCS: 83036; 99212 ==

== ENCOUNTER 2024-09-14 15:40 | Outpatient (REF) | payer MEDICARE, SELFPAY ==
--- NOTE | 2024-09-14 16:50 | MHC.AU.HA3 ---
Hearing Instrument Follow-Up- Binaural Date of Visit: 09/14/24 Right Ear: Make, Model, Color, Serial Number: ReSound One 7 ROSEY-R Color: Gold (Original #[id number] fit 06/26/21) replaced with #[id number] 05/29/22) Search Engine Optimization Specialist Repair Warranty: 07/10/2024 Search Engine Optimization Specialist Loss and Damage Warranty: Used 02/2022 [facility] Service Plan: Battery Size: Rechargeable Supervisor Sunglasses/Slim Tube: 2M Earmold/Dome/CShell/SlimTip:Encased Micro Mold #[id number] remake/repair warranty 09/18/2022 Type of Wax Guard: Resound triangle wax guards Dispensed By: [facility] Date of Fittin06/26/2021 Left Ear: Make, Model, Color, Serial Number: ReSound One 7 ROSEY-R Color: Gold (Original #[id number] fit 06/26/21) replaced 05/29/2022 with #[id number] Search Engine Optimization Specialist Repair Warranty: 07/10/2024 Search Engine Optimization Specialist Loss and Damage Warranty: Used 02/2022 [facility] Service Plan: Battery Size: Rechargeable Supervisor Sunglasses/Slim Tube: 2M Earmold/Dome/CShell/SlimTip: Encased Micro Mold #[id number] remake/repair warranty 09/18/2022 Type of Wax Guard: Resound triangle wax guards Dispensed By: [facility] Date of Fittin06/26/2021 Follow-Up Summary: Lena reports the left hearing aid has not been working, reports it has been a problem since picking it up in June. Found both aids with debris in wax guards. Cleaned aids, replaced wax guards, listening check positive. Lena reports left still not working. Found visually occluding cerumen. Recommended cerumen removal As. Also found Lena to not be correctly inserting canal lock molds into ears. Practiced correct insertion, Lena reports both aids working when both are in correctly. Lena reports her phone had to get wiped and she needs the mohan re-installed. Installed mohan and paired aids with phone. Slip in chart for today's appointment indicates [employer] MR [place] with no hearing aid coverage. Lena insists she has Extenda-Dent and did not pay OOP for services today. Recommendations: Recommendations: Hearing instrument follow-up or maintenance as needed. Diagnosis Code(s): Primary Diagnosis: H90.3 Bilateral Sensorineural Hearing Loss Signature: Provider: Angel Fuentes, CCC-A
--- OUTSIDE RECORDS SUMMARY | 2024-09-14 18:53 | XMS_ITS | Encounter Summary ---
Author Organization [facility] Address [address] [place] [address] Care Team Providers Care Airplane And Engine Inspector Name Role Phone Diandra Grady MD Primary Care Provider [phone] Encounter Details Date Type Department Care Team (Late st Contact Info) Description 09/08/2024 3:00 PM EST Office Visit Gastroenterology - [address] [place] [phone] Eryn Lauren, PAWAN [address] [address] Cystic mass of pancreas (Primary Dx); Diarrhea, [...] this encounter Progress Notes * Eryn Lauren, HUMAN DEVELOPMENT PROFESSOR - 09/08/2024 3:00 PM EST CHIEF COMPLAINT: [...] the MRI that she had recently at [facility] for unclear reasons. I reviewed this with [...] infectious colitis. We will refer her to [facility] for EUS. ROS: GENERAL: No malaise, [...] (STRATTERA) 25 mg capsule blood sugar diagnostic (Boomruch Verio test strips) test strip cyanocobalamin (VITAMIN [...] in the patient's care. Board Certified Gastroenterology [facility] W [phone] [place] [id number] [email or web address] Eryn Lauren NP documented in this encounter Plan of Treatment Upcoming Encounters Date Type Department Care Team ([facility] st Contact Info) Description 09/29/2024 3:00 PM EDT Office Visit Gastroenterology - [address] [phone] Eryn Lauren NP [address] [place] [address] 11/09/2024 2:40 PM EDT Office Visit Gastroenterology - [address] [phone] Brandie Bales MD [address] [address] Scheduled Orders Name Type Priority Associated Diagnoses [...] diabetes mellitus with diabetic autonomic (poly)neuropathy ([facility]) documented in this encounter Care Teams Airplane And Engine Inspector Relationship Specialty Start Date End Date Diandra Grady MD [address] [place] [address] Dr [address] [facility] [place] [address] PCP - General Internal Medicine 07/15/21 documented as of this encounter
--- OUTSIDE RECORDS SUMMARY | 2024-09-14 18:53 | XMS_ITS | Clinical Summary ---
Author Organization [facility] 299 [facility] Address [address] [place] [address] Phone Care Team Providers Care Spinner Iron Name Role Phone Diandra Grady MD Primary Care Provider [phone] Allergies No known active allergies Medications Trulicity [...] Team Description 09/12/2024 Telephone Gastroenterology - [address] [phone] Eryn Lauren, PAWAN 09/09/2024 Telephone Gastroenterology - [address] [phone] Eryn Lauren, CNA HHA 09/08/2024 3:00 PM EST Office Visit Gastroenterology - [address] [place] [phone] Eryn Lauren, CNA HHA Cystic mass of pancreas (Primary Dx); Diarrhea, unspecified type; Type 1 diabetes mellitus with diabetic autonomic (poly)neuropathy ([facility]) 09/02/2024 Telephone Gastroenterology - [address] [phone] Brandie Bales MD medication question 08/26/2024 Telephone Gastroenterology - [address] [place] [phone] Rosemary Farmer MA Results 08/25/2024 2:40 PM EST Office Visit Gastroenterology - [address] [place] [phone] Eryn Lauren, CNA HHA Abnormal CT of the abdomen (Primary Dx); Dyspepsia 07/28/2024 Telephone Gastroenterology - [address] [place] [phone] Lucita Rojas MA 07/22/2024 2:31 PM EST - 07/22/2024 11:59 PM EST Hospital Encounter [facility] Xray [address] [place] [phone] Other constipation Discharge Disposition: Home or Self Care 07/22/2024 1:40 PM EST Office Visit Gastroenterology - [address] [phone] Eryn Lauren NP Gastroesophageal reflux disease, unspecified [...] PM EDT Office Visit Gastroenterology - [address] [phone] Eryn Lauren NP [address] [place] [address] 11/09/2024 2:40 PM EDT Office Visit Gastroenterology - [address] [phone] Brandie Bales MD [address] [address] Health Maintenance Due Date Last Done Comments [...] K/mcL LAB HEMETOLOGY METHOD 08/25/2024 4:05 PM [facility] RBC 4.50 3.80 - 4.80 M/mcL LAB HEMETOLOGY METHOD 08/25/2024 4:05 PM [facility] Hemoglobin 12.9 11.5 - 16.0 g/dL LAB HEMETOLOGY METHOD 08/25/2024 4:05 PM [facility] Hematocrit 40.2 35.0 - 47.0 % LAB HEMETOLOGY METHOD 08/25/2024 4:05 PM [facility] MCV 90.3 79.0 - 98.0 FL LAB HEMETOLOGY METHOD 08/25/2024 4:05 PM [facility] MCH 29.0 27.0 - 32.0 pcg LAB HEMETOLOGY METHOD 08/25/2024 4:05 PM [facility] MCHC 32.1 32.0 - 37.0 g/dL LAB HEMETOLOGY METHOD 08/25/2024 4:05 PM [facility] RDW 12.6 11.0 - 15.0 % LAB HEMETOLOGY METHOD 08/25/2024 4:05 PM [facility] Platelets 346 130 - 400 K/mcL LAB HEMETOLOGY METHOD 08/25/2024 4:05 PM [facility] MPV 9.4 7.0 - 11.0 FL LAB HEMETOLOGY METHOD 08/25/2024 4:05 PM [facility] NRBC 0.0 <1.0 % LAB HEMETOLOGY METHOD 08/25/2024 4:05 PM [facility] NRBC Absolute 0.00 <0.10 K/mcL LAB HEMETOLOGY METHOD 08/25/2024 4:05 PM [facility] Neutrophils Relative 58.4 % LAB HEMETOLOGY METHOD 08/25/2024 4:05 PM [facility] Lymphocytes Relative 33.4 % LAB HEMETOLOGY METHOD 08/25/2024 4:05 PM [facility] Monocytes Relative 5.8 % LAB HEMETOLOGY METHOD 08/25/2024 4:05 PM [facility] Eosinophils Relative 1.7 % LAB HEMETOLOGY METHOD 08/25/2024 4:05 PM [facility] Basophils Relative 0.4 % LAB HEMETOLOGY METHOD 08/25/2024 4:05 PM [facility] Immature Granulocytes Relative 0.3 % LAB HEMETOLOGY METHOD 08/25/2024 4:05 PM [facility] Neutrophils Absolute 5.27 1.50 - 7.00 K/mcL LAB HEMETOLOGY METHOD 08/25/2024 4:05 PM [facility] Lymphocytes Absolute 3.01 1.00 - 5.00 K/mcL LAB HEMETOLOGY METHOD 08/25/2024 4:05 PM EST [facility] Monocytes Absolute 0.52 0.20 - 1.00 K/mcL LAB HEMETOLOGY METHOD 08/25/2024 4:05 PM EST [facility] Eosinophils Absolute 0.15 0.00 - 0.50 K/mcL LAB HEMETOLOGY METHOD 08/25/2024 4:05 PM [facility] Basophils Absolute 0.04 0.00 - 0.20 K/mcL LAB HEMETOLOGY METHOD 08/25/2024 4:05 PM [facility] Immature Granulocytes Absolute 0.03 0.00 - 0.03 K/mcL LAB HEMETOLOGY METHOD 08/25/2024 4:05 PM [facility] Blood Venous blood specimen / Unknown Venipuncture / Unknown 08/25/2024 3:19 PM EST 08/25/2024 3:58 PM EST Eryn Lauren CNA HHA LAB BLOOD ORDERABLES Final Re sult [facility] [address] [place] [address], [place] [phone] * Lipase (08/25/2024 3:19 PM EST) [facility] Lipase 41 13 - 75 unit/L LAB CHEMISTRY METHOD 08/25/2024 4:32 PM EST [facility] Blood Venous blood specimen / Unknown Venipuncture / Unknown 08/25/2024 3:19 PM EST 08/25/2024 3:58 PM EST Eryn Lauren CNA HHA LAB BLOOD ORDERABLES Final Re sult [facility] [address] [place] [address], [place] [phone] * Amylase (08/25/2024 3:19 PM EST) Pathologist [facility] Amylase 80 25 - 115 unit/L LAB CHEMISTRY METHOD 08/25/2024 4:32 PM [facility] Blood Venous blood specimen / Unknown Venipuncture / Unknown 08/25/2024 3:19 PM EST 08/25/2024 3:58 PM EST us Eryn Lauren CNA HHA LAB BLOOD ORDERABLES Final Re sult [facility] [address] [place] [address], [place] [phone] * (ABNORMAL) Comprehensive metabolic panel (08/25/2024 3:19 PM EST) [facility] Sodium 137 133 - 145 mmol/L LAB CHEMISTRY METHOD 08/25/2024 4:32 PM [facility] Potassium 4.4 3.5 - 5.5 mmol/L LAB CHEMISTRY METHOD 08/25/2024 4:32 PM [facility] Chloride 103 96 - 110 mmol/L LAB CHEMISTRY METHOD 08/25/2024 4:32 PM [facility] CO2 26 21 - 32 mmol/L LAB CHEMISTRY METHOD 08/25/2024 4:32 PM [facility] Anion Gap 8 3 - 11 LAB CHEMISTRY METHOD 08/25/2024 4:32 PM [facility] Glucose 185(H) 70 - 100 mg/dL LAB CHEMISTRY METHOD 08/25/2024 4:32 PM [facility] BUN 20 5 - 25 mg/dL LAB CHEMISTRY METHOD 08/25/2024 4:32 PM [facility] Creatinine 1.42(H) 0.50 - 1.10 mg/dL LAB CHEMISTRY METHOD 08/25/2024 4:32 PM [facility] eGFR 40(L) >=60 mL/min/1. 73m2 LAB CHEMISTRY METHOD 08/25/2024 4:32 PM [facility] Comment:Calculation based on the??Chronic Kidney Disease Epidemiology Collaboration (CKD-EPI) equation refit??without adjustment for race. BUN/Creatinine Ratio 14.1 LAB CHEMISTRY METHOD 08/25/2024 4:32 PM [facility] Calcium 9.5 8.5 - 10.5 mg/dL LAB CHEMISTRY METHOD 08/25/2024 4:32 PM [facility] AST (SGOT) 20 10 - 42 unit/L LAB CHEMISTRY METHOD 08/25/2024 4:32 PM [facility] ALT (SGPT) 15 10 - 60 unit/L LAB CHEMISTRY METHOD 08/25/2024 4:32 PM [facility] Alkaline Phosphatase 76 42 - 121 unit/L LAB CHEMISTRY METHOD 08/25/2024 4:32 PM [facility] Total Protein 6.8 6.0 - 8.0 g/dL LAB CHEMISTRY METHOD 08/25/2024 4:32 PM [facility] Albumin 3.5 3.2 - 5.0 g/dL LAB CHEMISTRY METHOD 08/25/2024 4:32 PM [facility] Total Bilirubin 0.3 0.0 - 1.4 mg/dL LAB CHEMISTRY METHOD 08/25/2024 4:32 PM [facility] Blood Venous blood specimen / Unknown Venipuncture / Unknown 08/25/2024 3:19 PM EST 08/25/2024 3:58 PM EST us Eryn Lauren CNA HHA LAB BLOOD ORDERABLES Final Re sult [facility] [address] [place] [address], [place] [phone] * XR Abdomen 1 View (07/22/2024 2:44 PM EST) Anatomical Region Laterality Modality Body Radiographic Madonna ging 07/27/2024 8:19 AM EST Impressions 07/27/2024 8:21 AM EST Nonobstructive gas pattern. -------- FINAL REPORT -------- Dictated By: Regan Joe Dictated Date: 07/27/2024 08:19 ET Assigned Physician: Regan Joe Reviewed and Electronically Signed By: Regan Joe Signed Date: 07/27/2024 08:21 ET Workstation ID: [id number] Transcribed By: Self Edit Transcribed Date: 07/27/2024 [...] Signed Date: 07/27/2024 08:21 ET Workstation ID: [id number] Transcribed By: Self Edit Transcribed Date: 07/27/2024 08:19 ET Eryn Lauren CNA HHA IMG XR PROCEDURES Final Resul t * COLONOSCOPY (07/01/2016 9:36 AM EST) Anatomical Region Laterality Modality Endoscopy us Historical Provider GI~PROCEDURE ORDERABLES F inal Result from Last 3 Months or Most Recently Relevant to Health Maintenance Insurance A[employer]NA MEDICARE ADVANTAGE MEDICAID - [place] Care Teams Spinner Iron Relationship Specialty Start Date End Date Diandra Grady MD [address] [place] [address] [address] [facility] [place] [address] PCP - General Internal Medicine 07/15/21
--- OUTSIDE RECORDS SUMMARY | 2024-09-14 18:53 | XMS_ITS | Encounter Summary ---
Author Organization [facility] Address [address] [place] [address] Care Team Providers Care Supervisor Powdered Metal Name Role Phone Diandra Grady MD Primary Care Provider [phone] Reason for Visit * Reason Onset Date Comments medication question 09/02/2024 Encounter Details Date Type Department Care Team (Late st Contact Info) Description 09/02/2024 Telephone Gastroenterology - [address] [place] [address] Brandie Bales MD [address] [place], [place] [phone] medication question Social History Tobacco Use Types [...] [address] [place] [phone] Eryn Lauren, TRADE SHOW COORDINATOR [address] [facility] [address] [place] [address] 11/09/2024 2:40 PM EDT Office Visit Gastroenterology - [address] [place] [phone] Brandie Bales MD [address] [address] documented as of this encounter Visit Diagnoses Not on filedocumented in this encounter Care Teams Supervisor Powdered Metal Relationship Specialty Start Date End Date Miguel A, MD Diandra [address] [place] [address] [address] [facility] [place] [address] PCP - General Internal Medicine 07/15/21 documented as of this encounter
--- OUTSIDE RECORDS SUMMARY | 2024-09-14 18:53 | XMS_ITS | Encounter Summary ---
Author Organization [facility] Address [address] [place] [address] Care Team Providers Care Staff Field Engineer Name Role Phone Diandra Grady MD Primary Care Provider [phone] Encounter Details Date Type Department Care Team (Late st Contact Info) Description 09/12/2024 Telephone Gastroenterology - [address] [facility] [address] [place] [phone] Eryn Lauren, MOBILE PAINT SPECIALIST [address] [place], [place] [phone] Social History Tobacco Use Types Packs/Day Years [...] RESENT ALL OF THE INFORMATION REQUIRED TO [facility]. * Eleanor Reynaga - 09/12/2024 11:13 AM EST PT REFERRED TO [facility] FOR EUS PROCEDURE BUT THEY WERE ONLY SENT A DEMO SHEET. THEY ARE REQ: -OV NOTES -MED LIST -LABS -IMAGING FAX#[phone] documented in this encounter Plan of Treatment Upcoming Encounters Date Type Department Care Team (Late st Contact Info) Description 09/29/2024 3:00 PM EDT Office Visit Gastroenterology - [address] [place] [address] [address] [place] [phone] Eryn Lauren, MOBILE PAINT SPECIALIST [address] [facility] [address] [place] [address] 11/09/2024 2:40 PM EDT Office Visit Gastroenterology - [address] [place] [address] [address] [place] [phone] Brandie Bales MD [address] [facility] [address] [address] documented as of this encounter Visit Diagnoses Not on filedocumented in this encounter Care Teams Staff Field Engineer Relationship Specialty Start Date End Date Diandra Grady MD [address] [place] [address] [address] [facility] [place] [address] PCP - General Internal Medicine 07/15/21 documented as of this encounter
--- OUTSIDE RECORDS SUMMARY | 2024-09-14 18:53 | XMS_ITS | Clinical Summary ---
Author Organization [facility] Address [address] [place] [address] Care Team Providers Care Co Founder Name Role Phone Maren Martel DMD Primary Care Provider [phone] Source Comments PLEASE NOTE, if this patient [...] Encounters Date Type Department Care Team Description 09/13/2024 4:20 PM EST Office Visit [place] [address] [place] [phone] Maren Martel, DMD Missing teeth, acquired (Primary Dx) 09/02/2024 3:40 PM EST Office Visit [address] [place] [phone] Maren Martel, DMD Missing teeth, acquired (Primary Dx) 07/29/2024 2:00 PM EST Office Visit [facility] [address] [place] [phone] Yoo-Roa, Marko, DDS Retained tooth root (Primary Dx); Caries 07/29/2024 11:00 AM EST Office Visit [address] [address] Maren Martel, DMD Missing teeth, acquired (Primary Dx) 07/29/2024 Travel 06/16/2024 2:20 PM EST Office Visit [facility] [address] [place] [address] Antonio Galicia RHD Encounter for [...] Sign Reading Time Taken Comments Blood Pressure 130/80 09/13/2024 4:43 PM EST Pulse 60 09/13/2024 4:43 PM EST Temperature - - Respiratory Rate - - Oxygen Saturation - - Inhaled Oxygen Concentration - - Weight - - Height - - Body Mass Index - - Plan of Treatment Upcoming Encounters Date Type Department Care Team (Late st Contact Info) Description 09/20/2024 4:20 PM EDT Office Visit [facility] [address] [place] [phone] Maren Martel, JUDY [address] [place] [address] 09/27/2024 3:00 PM EDT Office Visit [facility] [address] [place] [phone] Maren Martel, JUDY [address] [place] [address] 10/04/2024 3:00 PM EDT Office Visit [address] [phone] Maren Martel, DMD [address] [place] [address] Health Maintenance Due Date Last Done Comments [...] Bone Density Screening 2018 Falls Prevention 2018 [id number] ( season) 2024 Imm-Influenza (#1) 2024 06/19/2017, 1 08/17/2016, 04/17/2016, Additional history exists Alcohol and Drug Screen 07/13/2024 Depression Annual Screen 07/13/2024 Dental Examination 06/18/2025 06/16/2024 Hypertension Screening (#1) 09/13/2025 Dental FMX/Pano 06/18/2029 06/16/2024 Procedures Procedure Name Priority Date/Time Associated Diagnosis Comments COMPLETE DENTURE - IN PROCESS Routine 09/13/2024 4:20 PM EST Missing teeth, acquired COMPLETE DENTURE - IN PROCESS Routine 09/02/2024 [...] 2:20 PM EST Encounter for dental examination from Last 3 Months Insurance [place]ICA[place] DENT[place] Care Teams Co Founder Relationship Specialty Start Date End Date Maren Martel DMD [address] [place] [address] PCP - General 03/24/19
--- OUTSIDE RECORDS SUMMARY | 2024-09-14 18:53 | XMS_ITS | Patient Health Record ---
Author Organization [facility] Address [address] [facility] [place] [address] Care Team Providers Care Artificial Insemination Technician Name Role Phone Miguel A, Diandra Primary Care Provider Unavailabl e Black, Camryn Unavailable [phone] Reason For Referral No Information Medications Medication [...] Problem Acquired hammer toe of right foot (3631822605584431 ) Other hammer toe(s) (acquired), right foot (M20.41) Active confirmed Problem Acquired hammer toe of left foot (5810069666635892 ) Other hammer toe(s) (acquired), left foot (M20.42) Active confirmed Problem Polyneuropathy due to type 2 diabetes mellitus (975942201) Type 2 diabetes mellitus with diabetic polyneuropathy (E11.42) Active confirmed Encounters Encounter Location Date Provider Diagnosis [facility] [place] [address] [place] [address] 09/06/2024 Camryn Lazaro Plan Of Treatment Pending Test Test Name Order Date 95081-OINBCOY NAIL, 6 OR MORE 10/09/2015 15776-XDJZJWC NAIL, 6 OR MORE 11/01/2015 63704-JIYTDSF NAIL, 6 OR MORE 01/02/2017 32604-GMSOETP NAIL, 6 OR MORE 08/10/2017 21387-MLLIGWI NAIL, 1-5 12/25/2015 43924-SXORRAN NAIL, 1-5 01/09/2016 37694- Debride <25 sq cm 10/09/2015 01661-MQLVWUB SKIN/TISSUE 01/09/2016 77155-WFPQGBI SKIN/TISSUE 11/01/2015 24486-HSDNUYQ SKIN/TISSUE 11/29/2015 65032-QIIDOXJ SKIN/TISSUE 12/25/2015 64295-BTOV SKIN LESIONS, OVER 4 01/03/20 17 07327-JHNK SKIN LESIONS, OVER 4 08/10/19 18 05753-RPJE SKIN LESIONS, 2 TO 4 10/09/19 16 Insurance Providers Payer Name Payer Address Payer Phone Subscriber Number Group Number Insured Name Patient Relationship to Insured Coverage Start Date Coverage End Date A[employer] Medicare Complete [address] [address] [place] [address] [phone] [id number] Lena Bill Self - patient is the insured Medical (General) History Medical History History ICD Code Anxiety Arthritis Cataracts Depression type II diabetes Neuropathy High blood pressure Headaches Psychiatric disorder Back,Hip,and Knee pain Reflux Measles Mumps Chicken pox Surgical History Surgery Date(Month/Year) Stent at [facility] [place] 11-23-2015 Hospitalization History Reason Date(Month/Year) [facility] - stent iliac artery & 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
--- OUTSIDE RECORDS SUMMARY | 2024-09-14 18:53 | XMS_ITS ---
Author Organization [facility] Address [address] [place] [address] Care Team Providers Care Bank Runner Name Role Phone Diandra Grady Primary Care Provider Unavailabl e Black, Camryn Unavailable [phone] REASON FOR VISIT Pcp ref Encounters Encounter Location Date Provider Diagnosis [facility] [address] [place] [address] 09/06/2024 Camryn Black Plan Of Treatment No Information Progress Notes * FLY, PepeOB:1955 (69 yo F)Acc No.[id number]:09/06/2024 Patient:?Lena BILL :1955???Age:69 Y???Sex:Female Address:[address] [place] [address] * true * Date:? Generated for Jamil crowe/Deny/eTransmitting on:?09/14/2024 06:53 PM EST
--- OUTSIDE RECORDS SUMMARY | 2024-09-14 18:53 | XMS_ITS | Encounter Summary ---
Author Organization [facility] Address [address] [place] [address] Care Team Providers Care Cupola Repairer Name Role Phone Diandra Grady MD Primary Care Provider [phone] Encounter Details Date Type Department Care Team (Late st Contact Info) Description 08/25/2024 2:40 PM EST Office Visit Gastroenterology - [address] [facility] [address] [place] [phone] rEyn Lauren NP [address] of the abdomen (Primary Dx); [...] piece together, she has been seen at [facility] in [place] after a fall she had at her daughters home. Next she was admitted to [facility] for sepsis, but is unclear where the infection was. Lastly she tells me she had an MRI at [facility] and was told to see us for [...] patient's care. Board Certified Gastroenterology [facility] W [phone] [address] [email or web address] Eryn Lauren NP documented in this encounter Plan of Treatment Upcoming Encounters Date Type Department Care Team (Late st Contact Info) Description 09/29/2024 3:00 PM EDT Office Visit Gastroenterology - [address] [place] [address] [phone] Eryn Lauren NP [address] [address] 11/09/2024 2:40 PM EDT Office Visit Gastroenterology - [address] [phone] Brandie Bales MD [address] [address] documented as of this encounter Results * (ABNORMAL) Comprehensive metabolic panel (08/25/2024 3:19 PM EST) [facility] Sodium 137 133 - 145 mmol/L LAB CHEMISTRY METHOD 08/25/2024 4:32 PM EST [facility] Potassium 4.4 3.5 - 5.5 mmol/L LAB CHEMISTRY METHOD 08/25/2024 4:32 PM [facility] Chloride 103 96 - 110 mmol/L LAB CHEMISTRY METHOD 08/25/2024 4:32 PM [facility] CO2 26 21 - 32 mmol/L LAB CHEMISTRY METHOD 08/25/2024 4:32 PM [facility] Anion Gap 8 3 - 11 LAB CHEMISTRY METHOD 08/25/2024 4:32 PM [facility] Glucose 185(H) 70 - 100 mg/dL LAB CHEMISTRY METHOD 08/25/2024 4:32 PM [facility] BUN 20 5 - 25 mg/dL LAB CHEMISTRY METHOD 08/25/2024 4:32 PM [facility] Creatinine 1.42(H) 0.50 - 1.10 mg/dL LAB CHEMISTRY METHOD 08/25/2024 4:32 PM [facility] eGFR 40(L) >=60 mL/min/1. 73m2 LAB CHEMISTRY METHOD 08/25/2024 4:32 PM [facility] Comment:Calculation based on the??Chronic Kidney Disease Epidemiology Collaboration (CKD-EPI) equation refit??without adjustment for race. BUN/Creatinine Ratio 14.1 LAB CHEMISTRY METHOD 08/25/2024 4:32 PM [facility] Calcium 9.5 8.5 - 10.5 mg/dL LAB CHEMISTRY METHOD 08/25/2024 4:32 PM [facility] AST (SGOT) 20 10 - 42 unit/L LAB CHEMISTRY METHOD 08/25/2024 4:32 PM [facility] ALT (SGPT) 15 10 - 60 unit/L LAB CHEMISTRY METHOD 08/25/2024 4:32 PM [facility] Alkaline Phosphatase 76 42 - 121 unit/L LAB CHEMISTRY METHOD 08/25/2024 4:32 PM [facility] Total Protein 6.8 6.0 - 8.0 g/dL LAB CHEMISTRY METHOD 08/25/2024 4:32 PM EST [facility] Albumin 3.5 3.2 - 5.0 g/dL LAB CHEMISTRY METHOD 08/25/2024 4:32 PM EST [facility] Total Bilirubin 0.3 0.0 - 1.4 mg/dL LAB CHEMISTRY METHOD 08/25/2024 4:32 PM EST [facility] Blood Venous blood specimen / Unknown Venipuncture / Unknown 08/25/2024 3:19 PM EST 08/25/2024 3:58 PM EST us Eryn Lauren CAFE ATTENDANT LAB BLOOD ORDERABLES Final Re sult [facility] [address] [place] [address], [place] [phone] documented in this encounter Visit Diagnoses Diagnosis [...] 08/25/2024 documented in this encounter Care Teams Cupola Repairer Relationship Specialty Start Date End Date Diandra Grady MD [address] [place] [address] Dr [address] [facility] [place] [address] PCP - General Internal Medicine 07/15/21 documented as of this encounter
--- OUTSIDE RECORDS SUMMARY | 2024-09-14 18:53 | XMS_ITS | Encounter Summary ---
Author Organization [facility] Address [address] [place] [address] Care Team Providers Care Kayaking Instructor Name Role Phone Diandra Grady MD Primary Care Provider [phone] Reason for Visit * Reason Onset Date Comments Results 08/26/2024 Encounter Details Date Type Department Care Team (Late st Contact Info) Description 08/26/2024 Telephone Gastroenterology - [address] [place] [address] Rosemary Farmer MA Results Social [...] Office Visit Gastroenterology - [address] [facility] [address] [place] [phone] Eryn Lauren NP [address] [facility] [address] [place] [address] 11/09/2024 2:40 PM EDT Office Visit Gastroenterology - 299 [address] [facility] [address] [place] [phone] Brandie Bales MD [address] [facility] [address] [place] [address] documented as of this encounter Visit Diagnoses Not on filedocumented in this encounter Care Teams Kayaking Instructor Relationship Specialty Start Date End Date Diandra Grady MD [address] [place] [address] [address] [facility] [place] [address] PCP - General Internal Medicine 07/15/21 documented as of this encounter
--- OUTSIDE RECORDS SUMMARY | 2024-09-14 18:53 | XMS_ITS | Encounter Summary ---
Author Organization [facility] Address [address] [place] [address] Care Team Providers Care Performing Artist Name Role Phone Maren Martel JUDY Primary Care Provider [phone] Reason for Visit * Reason Comments Removable Prosthetics Encounter Details Date Type Department Care Team (Late st Contact Info) Description 09/02/2024 3:40 PM EST Office Visit [facility] [address] [place] [phone] Maren Martel, JUDY [address] [place], [place] [phone] Missing teeth, acquired (Primary Dx) Social History [...] Denture and Mandibular Complete Denture Final Impressions. Resin Maker: No Chief Complaint Patient presents with Removable [...] using PARQ. Dental procedures in this visit [id number] - COMPLETE DENTURE - IN PROCESS (Completed) [...] Description 09/20/2024 4:20 PM EDT Office Visit [address] [phone] Delonte Maren, JUDY [address] [place], [place] [phone] 09/27/2024 3:00 PM EDT Office Visit [address] [phone] DelonteMaren, JUDY [address] [place], [place] [phone] 10/04/2024 3:00 PM EDT Office Visit [address] [phone] DelonteMaren DMD [address] [place], [place] [phone] Scheduled Orders Name Type Priority Associated Diagnoses [...] unspecified documented in this encounter Care Teams Performing Artist Relationship Specialty Start Date End Date Maren Martel DMD [address] [place], [place] [phone] PCP - General 03/24/19 documented as of this encounter
--- OUTSIDE RECORDS SUMMARY | 2024-09-14 18:53 | XMS_ITS | Clinical Summary ---
Author Organization [facility] Address [address] [place] [address] Care Team Providers Care Care Technician Name Role Phone Unavailable Primary Care Provider [...]
--- OUTSIDE RECORDS SUMMARY | 2024-09-14 18:53 | XMS_ITS | Encounter Summary ---
Author Organization [facility] Address [address] [place] [address] Care Team Providers Care Dedicated Driver Name Role Phone Diandra Grady MD Primary Care Provider [phone] Encounter Details Date Type Department Care Team (Late st Contact Info) Description 09/09/2024 Telephone Gastroenterology - [address] [place] [phone] Eryn Lauren NP [address] [place] [address] Social History Tobacco Use Types Packs/Day Years [...] Order sent to Dr. Manuel Hardin at [facility]. documented in this encounter Plan of Treatment Upcoming Encounters Date Type Department Care Team (Late st Contact Info) Description 09/29/2024 3:00 PM EDT Office Visit Gastroenterology - [address] [place] [phone] Eryn Lauren, PAWAN [address] [facility] [address] [address] 11/09/2024 2:40 PM EDT Office Visit Gastroenterology - [address] [place] [phone] Brandie Bales MD [address] [facility] [address] [address] documented as of this encounter Visit Diagnoses Not on filedocumented in this encounter Care Teams Dedicated Driver Relationship Specialty Start Date End Date Diandra Grady MD [address] [place] [address] [address] [facility] [place] [address] PCP - General Internal Medicine 07/15/21 documented as of this encounter
--- OUTSIDE RECORDS SUMMARY | 2024-09-14 18:53 | XMS_ITS | Encounter Summary ---
Author Organization [facility] Address [address] [place] [address] Care Team Providers Care Tomato Paste Maker Name Role Phone Maren Martel JUDY Primary Care Provider [phone] Reason for Visit * Reason Comments Removable Prosthetics Encounter Details Date Type Department Care Team (Late st Contact Info) Description 09/13/2024 4:20 PM EST Office Visit [facility] [address] [place] [phone] Maren Martel, JUDY [address] [place], [place] [phone] Missing teeth, acquired (Primary Dx) Social History [...] Progress Notes * Maren Martel DMD - 09/13/2024 4:57 PM EST Dental Removable - Wax Rims SUBJECTIVE: Lena Bill, 69 year old female, presents alone for Maxillary Complete Denture and Mandibular Complete Denture wax rims and bite registration. Tree Killer: No Chief Complaint Patient presents with Removable Prosthetics OBJECTIVE: RMHx: Yes Vitals: Vitals: 09/13/24 1643 BP: 130/80 Pulse: 60 BP Site: Left Arm BP Position: Sitting BP Cuff Size: Regular Adult Pain Score: 0 - No pain ASSESSMENT: Dx: K08.109 Missing teeth, acquired (primary encounter diagnosis) PLAN: Informed Consent/PARQ (Procedure, Alternatives, Risks, Questions): Patient confirms informed consent using PARQ. Dental procedures in this visit [id number] - COMPLETE DENTURE - IN PROCESS (Completed) Service provider: Maren Martel DMD Billing provider: Maren Martel DMD Seated Maxillary Complete Denture and Mandibular Complete Denture wax rim. Adjustment required: yes - wax height. PT HAS LIMITED ROM. Retention is acceptable: N/A Checked VDO/VDR & occlusal plane: Yes Midline marked: Yes Checked lip support, incisal edge: Yes Bite registration taken: Yes Shade selected: A2. Pt approves shade. Post-Op Information Given: verbal Referral: No orders of the following type(s) were placed in this encounter: Referral. Rx: Case sent to design for teeth set up Behavior: Excellent DA: Ynes Puente [place]: Treatment - Denture Visit/try in documented in this encounter Plan of Treatment Upcoming Encounters Date Type Department Care Team (Late st Contact Info) Description 09/20/2024 4:20 PM EDT Office Visit [address] [phone] Maren Martel DMD [address] [place] [address] 09/27/2024 3:00 PM EDT Office Visit [address] [place] [phone] Maren Martel DMD [address] [place] [address] 10/04/2024 3:00 PM EDT Office Visit [address] [phone] Maren Martel DMD [address] [place] [address] documented as of this encounter Procedures Procedure Name Priority Date/Time Associated Diagnosis Comments COMPLETE DENTURE - IN PROCESS Routine 09/13/2024 4:20 PM EST Missing teeth, acquired documented in this encounter Visit Diagnoses Diagnosis Missing teeth, acquired- Primary Acquired absence of teeth, unspecified documented in this encounter Care Teams Tomato Paste Maker Relationship Specialty Start Date End Date Maren Martel DMD [address] [place] [address] PCP - General 03/24/19 documented as of this encounter
== END 2024-09-14 15:41 | disposition home or self-care (01) ==
LOC: HO.HAP 15:40
PROVIDERS: Visit Provider Internal Medicine
DX: Z46.1 Encounter for fitting and adjustment of hearing aid (principal); H90.3 Sensorineural hearing loss, bilateral
CPT/HCPCS: 92593

== ENCOUNTER → 2024-09-16 12:58 | Outpatient (BNVA) | payer MEDICARE, MEDICAID, SELFPAY | PROVIDERS: PCP Internal Medicine; Visit Provider Internal Medicine | DX: H61.23 Impacted cerumen, bilateral (principal) | CPT/HCPCS: 69210; 99212 ==

== ENCOUNTER 2024-09-16 13:59 | Outpatient (AMB) | payer MEDICARE, MEDICAID, SELFPAY ==
--- NOTE | 2024-09-16 14:48 | A.OFFPC_ITS ---
Intake Visit Reasons: ear pain Allergies No Known Allergies Allergy (Verified 09/16/24 14:48) Medication List - Last Reconciled 09/16/24 by LUÍS Gutierrez albuterol sulfate 90 mcg/actuation (Ventolin HFA) 2 puffs inhalation Q6H PRN alprazolam Bradley Benjamin Q 2 weeks aspirin (Adult Low Dose Aspirin) 81 mg PO DAILY atomoxetine 25 mg PO QAM atomoxetine 60 mg PO QAM blood sugar diagnostic As directed check blood sugars q.day blood-glucose meter As directed chlorthalidone 25 mg PO DAILY cholecalciferol (vitamin D3) 25 mcg PO DAILY cyanocobalamin (vitamin B-12) 1,000 mcg PO DAILY diphenoxylate-atropine 2.5-0.025 mg tabs PO BID doxazosin 2 mg PO BEDTIME dulaglutide 1.5 mg (0.5 mL) subcut QWEEK 30 days duloxetine 60 mg PO DAILY duloxetine 30 mg PO DAILY eletriptan (Relpax) 40 mg PO .QD PRN empagliflozin 25 mg PO QAM ezetimibe (Zetia) 10 mg PO DAILY 30 days flash glucose scanning reader ([employer] [place] 2 [place]) As directed flash glucose sensor (FreeStyle Mich 2 Sensor kit) As directed hydroxyzine HCl 25 mg PO DAILY hydroxyzine HCl mg PO BEDTIME isosorbide mononitrate ER 30 mg PO DAILY lancets As directed lisinopril 20 mg PO DAILY loperamide 2 mg PO TID metformin ER 1,000 mg PO BID mupirocin 2% 1 appl topical 3XW naloxone 4 mg/actuation (Narcan) 4 mg intranasal Q3M PRN nebivolol 2.5 mg PO DAILY nitroglycerin 0.4 mg PO Every 5 minutes x3; omeprazole mg PO DAILY ondansetron 8 mg PO Q8H PRN oxycodone 15 mg PO Q6H PRN 30 days pen needle, diabetic As directed rosuvastatin 40 mg PO DAILY 30 days simethicone 125 mg PO TID PRN simethicone mg PO DAILY trazodone 50 mg PO BEDTIME PRN Tobacco use date assessed: 09/16/24 Dental Screening Dental Screen Date: 09/16/24 HPI ear pain HPI Details The patient is a 69 year old patient who is presenting with clogged ears Reports that she went to picking machine operator her hearing aide and was told that her ears are clogged Large amount of cerumen was removed with curette from bilateral ears. The was scheduled for a f/u appt with Della to remove the residual cerumen Debrox ear drps ordered for the the patient to use for at least 4 days straight prior to follow up appt [facility] Medical History (Updated 09/16/24 @ 15:19 by LUÍS Gutierrez) Right iliac artery stenosis Osteoarthritis Hypercholesterolemia Coronary artery disease Attention deficit disorder Right radial fracture Pulmonary nodule Diabetic nephropathy Carotid stenosis Anxiety and depression Hypertension Type 2 diabetes mellitus with hyperglycemia Lumbar spondylosis Surgical History History of tooth extraction H/O endarterectomy Amputation toe Family History Father Stroke Mother Pancreatic cancer Son Sleep apnea Social History Housing: House Alcohol intake: current Alcohol intake frequency: holidays/special occasions only Alcohol type: wine Patient Tobacco Use Status: Current everyday Tobacco user Tobacco use type: Cigarette Cigarette Packs Per Day: 0.25 Cigarettes Per Day: 3 e-Cigarette/Vaping Use: Never Used Second Hand Smoke Exposure: Yes service: No Current occupational status: unemployed Cognitive needs: No Hearing needs: No Vision needs: Yes Questionnaire Thrive Questionnaire Date Thrive assessed: 09/16/24 PATRIC-7 AMB Questionnaire PATRIC-7 Date PATRIC - 7 assessed: 08/04/24 Source: Developed by Drs. George Andrew, Marion Vasques, Milad Goncalves and colleagues, with an educational jaylen from [employer]. Review of Systems Const Details: Denies chills, Denies fatigue, Denies fever(s), Denies headache(s) and Denies weakness Cardiac Denies chest pain, Denies claudication, Denies leg edema, Denies lightheadedness, Denies palpitations, Denies dyspnea, Denies dyspnea on exertion, Denies orthopnea and Denies other (Loss of consciousness) Resp Denies cough, Denies excessive phlegm production, Denies dyspnea, Denies dyspnea on exertion, Denies snoring and Denies wheezing ENT Denies vertigo, Reports ear discharge, Denies otalgia, Reports hearing loss (Reports she was told that her ears are clogged) and Reports other (while picking up her hearing aide) Neuro Denies vertigo Physical exam (Primary Care) Tobacco/Smoking Status: Tobacco use Status Tobacco use date assessed 09/16/24 09/16/24 14:48 Patient Tobacco Use Status Current everyday Tobacco 09/16/24 14:48 Tobacco use type Cigarette 09/16/24 14:48 e-Cigarette/Vaping Use Never Used 09/16/24 14:48 Thrive Assessment: Date of Thrive Assessment Date Thrive assessed 09/16/24 09/16/24 14:48 Const General: cooperative and no acute distress Orientation/consciousness: oriented to person, oriented to place and oriented to time Limitations: no limitations HENMT Head: Yes normal to inspection and Yes normocephalic Ears: external ears normal, Abnormal EAC present cerumen impaction, hearing grossly impaired and unable to visualize TM General nose exam: Normal external nose present and No nasal discharge present Face and sinus: Yes normal facial exam and Yes sinuses nontender Mouth: Normal oral and palatal mucosa present Eyes General: appearance normal, both eyes and all related structures Conjunctivae: conjunctivae normal Sclerae: sclerae normal Pupils: Equal, round and reactive pupils present EOM: EOMs intact bilaterally Neck Neck: Yes normal visual inspection Thyroid: Thyroid normal Resp Effort & Inspection: normal respiratory effort and able to speak in complete sentences Auscultation: clear to auscultation bilaterally Cardio Rate: regular rate Rhythm: regular rhythm Heart sounds: S1 normal heart sound present, S2 normal heart sound present, no gallops, no murmurs and no rubs Neuro General: oriented to person, oriented to place and oriented to time Cranial nerves: Yes Equal, round and reactive pupils present Coding Level of Care Code Procedure Only Diagnoses Impacted cerumen of both ears H61.23 Time Spent (min) 19 Assessment & Plan Assessment & Plan (1) Impacted cerumen of both ears: Code(s): H61.23 - Impacted cerumen, bilateral Category: Medical Plan: Bilateral ear impaction, removed moderate amount of dried up cerumen from bilateral ear with curette The patient was ordered debrox ear drops- use as directed for at least 4 days straight prior to follow up appt She patient was scheduled to follow up in a week for ear flush Medications: New carbamide peroxide 6.5% (Debrox) 5 drps otic (ears) Q12H 15 mL 0RF 4 days H61.22 - Impacted cerumen, left ear
--- OUTSIDE RECORDS SUMMARY | 2024-09-16 15:38 | XMS_ITS | Clinical Summary ---
Author Organization [facility] Address [address] [place] [address] Care Team Providers Care Fingerprint Clerk Name Role Phone Maren Martel DMD Primary Care Provider [phone] Source Comments PLEASE NOTE, if this patient [...] Description 09/13/2024 4:20 PM EST Office Visit [facility] [address] [place] [phone] Maren Martel, JUDY Missing teeth, acquired (Primary Dx) 09/02/2024 3:40 PM EST Office Visit [facility] [address] [place] [phone] Maren Martel, DMD Missing teeth, acquired (Primary Dx) 07/29/2024 2:00 PM EST Office Visit [facility] [address] [place] [phone] Yoo-Roa, Marko, DDS Retained tooth root (Primary Dx); Caries 07/29/2024 11:00 AM EST Office [facility] [address] [place] [address] Maren Martel, DMD Missing teeth, acquired (Primary Dx) 07/29/2024 Travel from Last 3 Months Social History [...] Description 09/20/2024 4:20 PM EDT Office Visit [facility] [address] [place] [phone] Maren Martel, JUDY [address] [place] [address] 09/27/2024 3:00 PM EDT Office Visit [facility] [address] [place] [phone] Maren Martel, JUDY [address] [place] [address] 10/04/2024 3:00 PM EDT Office Visit [facility] [address] [place] [phone] Maren Martel, JUDY [address] [place] [address] Health Maintenance Due Date Last Done Comments [...] Bone Density Screening 2018 Falls Prevention 2018 [id number] ( season) 2024 Imm-Influenza (#1) 2024 06/19/2017, [...] 07/29/2024 11:00 AM EST Missing teeth, acquired PANORAMIC RADIOGRAPHIC IMAGE Routine 06/16/2024 2:20 PM EST Retained tooth root Caries Encounter for dental examination COMP ORAL EVALUATION - NEW/ESTABLISHED PATIENT Routine 06/16/2024 2:20 PM EST Caries Encounter for dental examination from Last 3 Months or Most Recently Relevant to Health Maintenance Insurance [place]ENT[place] Care Teams Fingerprint Clerk Relationship Specialty Start Date End Date Maren Martel DMD [address] [place] [address] PCP - General 03/24/19
--- OUTSIDE RECORDS SUMMARY | 2024-09-16 15:38 | XMS_ITS | Encounter Summary ---
Author Organization [facility] Address [address] [place] [address] Care Team Providers Care Merchant Seaman Name Role Phone Diandra Grady MD Primary Care Provider [phone] Reason for Visit * Reason Onset Date Comments medication question 09/02/2024 Encounter Details Date Type Department Care Team (Late st Contact Info) Description 09/02/2024 Telephone Gastroenterology - [address] [place] [address] Brandie Bales MD [address] [place], [place] [phone] medication question Social History Tobacco Use Types [...] [address] [place] [phone] Eryn Lauren, CELLULOID TRIMMER [address] [facility] [address] [place] [address] 11/09/2024 2:40 PM EDT Office Visit Gastroenterology - [address] [place] [phone] Brandie Bales MD [address] [address] documented as of this encounter Visit Diagnoses Not on filedocumented in this encounter Care Teams Merchant Seaman Relationship Specialty Start Date End Date Miguel A, MD Diandra [address] [place] [address] Dr [address] [facility] [place] [address] PCP - General Internal Medicine 07/15/21 documented as of this encounter
--- OUTSIDE RECORDS SUMMARY | 2024-09-16 15:38 | XMS_ITS | Encounter Summary ---
Author Organization [facility] Address [address] [place] [address] Care Team Providers Care Weigher Packing Name Role Phone Maren Martel JUDY Primary Care Provider [phone] Reason for Visit * Reason Comments Removable Prosthetics Encounter Details Date Type Department Care Team (Late st Contact Info) Description 09/13/2024 4:20 PM EST Office Visit [facility] [address] [place] [phone] Maren Martel, JUDY [address] [place], [place] [phone] Missing teeth, acquired (Primary Dx) Social History [...] Complete Denture wax rims and bite registration. Amusement Or Recreation Card Checker: No Chief Complaint Patient presents with Removable [...] using PARQ. Dental procedures in this visit [id number] - COMPLETE DENTURE - IN PROCESS (Completed) [...] Description 09/20/2024 4:20 PM EDT Office Visit [address] [phone] Maren Martel DMD [address] [place] [address] 09/27/2024 3:00 PM EDT Office Visit [address] [place] [phone] Maren Martel DMD [address] [place] [address] 10/04/2024 3:00 PM EDT Office Visit [address] [phone] Maren Martel DMD [address] [place] [address] documented as of this encounter Procedures Procedure Name Priority Date/Time Associated Diagnosis Comments COMPLETE DENTURE - IN PROCESS Routine 09/13/2024 4:20 PM EST Missing teeth, acquired documented in this encounter Visit Diagnoses Diagnosis Missing teeth, acquired- Primary Acquired absence of teeth, unspecified documented in this encounter Care Teams Weigher Packing Relationship Specialty Start Date End Date Maren Martel DMD [address] [place] [address] PCP - General 03/24/19 documented as of this encounter
--- OUTSIDE RECORDS SUMMARY | 2024-09-16 15:38 | XMS_ITS | Encounter Summary ---
Author Organization [facility] Address [address] [place] [address] Care Team Providers Care Solid Waste Technician Name Role Phone Diandra Grady MD Primary Care Provider [phone] Encounter Details Date Type Department Care Team (Late st Contact Info) Description 09/09/2024 Telephone Gastroenterology - [address] [place] [phone] Eryn Lauren NP [address] [place] [address] Social History Tobacco Use Types Packs/Day Years [...] Order sent to Dr. Manuel Hardin at [facility]. documented in this encounter Plan of Treatment Upcoming Encounters Date Type Department Care Team (Late st Contact Info) Description 09/29/2024 3:00 PM EDT Office Visit Gastroenterology - [address] [place] [phone] Eryn Lauren, PAWAN [address] [facility] [address] [address] 11/09/2024 2:40 PM EDT Office Visit Gastroenterology - [address] [place] [phone] Brandie Bales MD [address] [facility] [address] [address] documented as of this encounter Visit Diagnoses Not on filedocumented in this encounter Care Teams Solid Waste Technician Relationship Specialty Start Date End Date Diandra Grady MD [address] [place] [address] [address] [facility] [place] [address] PCP - General Internal Medicine 07/15/21 documented as of this encounter
--- OUTSIDE RECORDS SUMMARY | 2024-09-16 15:38 | XMS_ITS | Encounter Summary ---
Author Organization [facility] Address [address] [place] [address] Care Team Providers Care Millinery Teacher Name Role Phone Diandra Grady MD Primary Care Provider Reason for Visit * Reason Onset Date Comments Results 08/26/2024 Encounter Details Date Type Department Care Team (Late st Contact Info) Description 08/26/2024 Telephone Gastroenterology - [address] [place] [address] Rosemary Farmer MA Results Social [...] Office Visit Gastroenterology - [address] [facility] [address] [place] [phone] Eryn Lauren NP [address] [facility] [address] [place] [address] 11/09/2024 2:40 PM EDT Office Visit Gastroenterology - [address] [facility] [address] [place] [phone] Brandie Bales MD [address] [facility] [address] [place] [address] documented as of this encounter Visit Diagnoses Not on filedocumented in this encounter Care Teams Millinery Teacher Relationship Specialty Start Date End Date Diandra Grady MD [address] [place] [address] [address] [facility] [place] [address] PCP - General Internal Medicine 07/15/21 documented as of this encounter
--- OUTSIDE RECORDS SUMMARY | 2024-09-16 15:38 | XMS_ITS | Encounter Summary ---
Author Organization [facility] Address [address] [place] [address] Care Team Providers Care Commercial Roofing Estimator Name Role Phone Diandra Grady MD Primary Care Provider Encounter Details Date Type Department Care Team (Late st Contact Info) Description 08/25/2024 2:40 PM EST Office Visit Gastroenterology - [address] 299 [facility] [address] [place] [phone] Eryn Lauren NP 299 [facility] [address] of the abdomen (Primary Dx); [...] piece together, she has been seen at [facility] in [place] after a fall she had at her daughters home. Next she was admitted to [facility] for sepsis, but is unclear where the infection was. Lastly she tells me she had an MRI at [facility] and was told to see us [...] in the patient's care. Board Certified Gastroenterology [facility] W [phone] [address] [email or web address] Eryn Lauren NP documented in this encounter Plan of Treatment Upcoming Encounters Date Type Department Care Team (Late st Contact Info) Description 09/29/2024 3:00 PM EDT Office Visit Gastroenterology - [address] [place] [address] [phone] Eryn Lauren NP [address] [address] 11/09/2024 2:40 PM EDT Office Visit Gastroenterology - [address] [phone] Brandie Bales MD [address] [address] documented as of this encounter Results * (ABNORMAL) Comprehensive metabolic panel (08/25/2024 3:19 PM EST) [facility] Sodium 137 133 - 145 mmol/L LAB CHEMISTRY METHOD 08/25/2024 4:32 PM EST [facility] Potassium 4.4 3.5 - 5.5 mmol/L LAB CHEMISTRY METHOD 08/25/2024 4:32 PM [facility] Chloride 103 96 - 110 mmol/L LAB CHEMISTRY METHOD 08/25/2024 4:32 PM [facility] CO2 26 21 - 32 mmol/L LAB CHEMISTRY METHOD 08/25/2024 4:32 PM [facility] Anion Gap 8 3 - 11 LAB CHEMISTRY METHOD 08/25/2024 4:32 PM [facility] Glucose 185(H) 70 - 100 mg/dL LAB CHEMISTRY METHOD 08/25/2024 4:32 PM [facility] BUN 20 5 - 25 mg/dL LAB CHEMISTRY METHOD 08/25/2024 4:32 PM [facility] Creatinine 1.42(H) 0.50 - 1.10 mg/dL LAB CHEMISTRY METHOD 08/25/2024 4:32 PM [facility] eGFR 40(L) >=60 mL/min/1. 73m2 LAB CHEMISTRY METHOD 08/25/2024 4:32 PM [facility] Comment:Calculation based on the??Chronic Kidney Disease Epidemiology Collaboration (CKD-EPI) equation refit??without adjustment for race. BUN/Creatinine Ratio 14.1 LAB CHEMISTRY METHOD 08/25/2024 4:32 PM [facility] Calcium 9.5 8.5 - 10.5 mg/dL LAB CHEMISTRY METHOD 08/25/2024 4:32 PM [facility] AST (SGOT) 20 10 - 42 unit/L LAB CHEMISTRY METHOD 08/25/2024 4:32 PM [facility] ALT (SGPT) 15 10 - 60 unit/L LAB CHEMISTRY METHOD 08/25/2024 4:32 PM [facility] Alkaline Phosphatase 76 42 - 121 unit/L LAB CHEMISTRY METHOD 08/25/2024 4:32 PM [facility] Total Protein 6.8 6.0 - 8.0 g/dL LAB CHEMISTRY METHOD 08/25/2024 4:32 PM EST [facility] Albumin 3.5 3.2 - 5.0 g/dL LAB CHEMISTRY METHOD 08/25/2024 4:32 PM EST [facility] Total Bilirubin 0.3 0.0 - 1.4 mg/dL LAB CHEMISTRY METHOD 08/25/2024 4:32 PM EST [facility] Blood Venous blood specimen / Unknown Venipuncture / Unknown 08/25/2024 3:19 PM EST 08/25/2024 3:58 PM EST us Eryn Lauren ACADEMIC PROGRAM SPECIALIST LAB BLOOD ORDERABLES Final Re sult [facility] [address] [place] [address], [place] [phone] documented in this encounter Visit Diagnoses Diagnosis [...] 08/25/2024 documented in this encounter Care Teams Commercial Roofing Estimator Relationship Specialty Start Date End Date Diandra Grady MD [address] [place] [address] Dr [address] [facility] [place] [address] PCP - General Internal Medicine 07/15/21 documented as of this encounter
--- OUTSIDE RECORDS SUMMARY | 2024-09-16 15:38 | XMS_ITS | Encounter Summary ---
Author Organization [facility] Address [address] [place] [address] Care Team Providers Care Lines Tender Name Role Phone Maren Martel JUDY Primary Care Provider [phone] Reason for Visit * Reason Comments Removable Prosthetics Encounter Details Date Type Department Care Team (Late st Contact Info) Description 09/02/2024 3:40 PM EST Office Visit [facility] [address] [place] [phone] Maren Martel, JUDY [address] [place], [place] [phone] Missing teeth, acquired (Primary Dx) Social History [...] Denture and Mandibular Complete Denture Final Impressions. Slug Press Operator: No Chief Complaint Patient presents with [...] using PARQ. Dental procedures in this visit [id number] - COMPLETE DENTURE - IN PROCESS (Completed) [...] 09/20/2024 4:20 PM EDT Office Visit [address] [phone] Delonte Maren, JUDY [address] [place], [place] [phone] 09/27/2024 3:00 PM EDT Office Visit [address] [phone] DelonteMaren, JUDY [address] [place], [place] [phone] 10/04/2024 3:00 PM EDT Office Visit [address] [phone] DelonteMaren DMD [address] [place], [place] [phone] Scheduled Orders Name Type Priority Associated Diagnoses [...] unspecified documented in this encounter Care Teams Lines Tender Relationship Specialty Start Date End Date Maren Martel DMD [address] [place], [place] [phone] PCP - General 03/24/19 documented as of this encounter
--- OUTSIDE RECORDS SUMMARY | 2024-09-16 15:38 | XMS_ITS | Clinical Summary ---
Author Organization [facility] Address [address] [place] [address] Care Team Providers Care Trial Lawyer Name Role Phone Unavailable Primary Care Provider [...]
--- OUTSIDE RECORDS SUMMARY | 2024-09-16 15:38 | XMS_ITS | Encounter Summary ---
Author Organization [facility] Address [address] [place] [address] Care Team Providers Care Deep Fryer Assembler Name Role Phone Diandra Grady MD Primary Care Provider Encounter Details Date Type Department Care Team (Late st Contact Info) Description 09/12/2024 Telephone Gastroenterology - [address] [facility] [address] [place] [phone] Eryn Lauren, PUBLIC HEALTH ADVISOR [address] [place], [place] [phone] Social History Tobacco Use Types Packs/Day Years [...] RESENT ALL OF THE INFORMATION REQUIRED TO [facility]. * Eleanor Reynaga - 09/12/2024 11:13 AM EST PT REFERRED TO [facility] FOR EUS PROCEDURE BUT THEY WERE ONLY SENT A DEMO SHEET. THEY ARE REQ: -OV NOTES -MED LIST -LABS -IMAGING FAX#[phone] documented in this encounter Plan of Treatment Upcoming Encounters Date Type Department Care Team (Late st Contact Info) Description 09/29/2024 3:00 PM EDT Office Visit Gastroenterology - [address] [place] [address] [place] [phone] Eryn Lauren, PUBLIC HEALTH ADVISOR [address] [facility] [address] [place] [address] 11/09/2024 2:40 PM EDT Office Visit Gastroenterology - [address] [place] [address] [address] [place] [phone] Brandie Bales MD 299 [facility] [address] [address] documented as of this encounter Visit Diagnoses Not on filedocumented in this encounter Care Teams Deep Fryer Assembler Relationship Specialty Start Date End Date Diandra Grady MD [address] [place] [address] Dr [address] [facility] [place] [address] PCP - General Internal Medicine 07/15/21 documented as of this encounter
--- OUTSIDE RECORDS SUMMARY | 2024-09-16 15:38 | XMS_ITS | Encounter Summary ---
Author Organization [facility] Address [address] [place] [address] Care Team Providers Care Black Pickler Name Role Phone Diandra Grady MD Primary Care Provider Encounter Details Date Type Department Care Team (Late st Contact Info) Description 09/08/2024 3:00 PM EST Office Visit Gastroenterology - [address] [facility] [address] [place] [phone] Eryn Lauren, PAWAN [address] [facility] [address] [address] Cystic mass of pancreas (Primary Dx); Diarrhea, [...] this encounter Progress Notes * Eryn Lauren, STAFF NUCLEAR WEAPONS OFFICER - 09/08/2024 3:00 PM EST CHIEF COMPLAINT: [...] the MRI that she had recently at [facility] for unclear reasons. I reviewed this [...] infectious colitis. We will refer her to [facility] for EUS. ROS: GENERAL: No malaise, significant [...] (STRATTERA) 25 mg capsule blood sugar diagnostic ([email or web address] Verio test strips) test strip cyanocobalamin (VITAMIN [...] in the patient's care. Board Certified Gastroenterology [facility] W [phone] [place] [phone] [email or web address] Eryn Lauren NP documented in this encounter Plan of Treatment Upcoming Encounters Date Type Department Care Team ([facility] st Contact Info) Description 09/29/2024 3:00 PM EDT Office Visit Gastroenterology - [address] [phone] Eryn Lauren NP [address] [facility] [address] [place] [address] 11/09/2024 2:40 PM EDT Office Visit Gastroenterology - [address] [phone] Brandie Bales MD [address] [address] Scheduled Orders Name Type Priority Associated Diagnoses [...] 1 diabetes mellitus with diabetic autonomic (poly)neuropathy ([facility]) documented in this encounter Care Teams Black Pickler Relationship Specialty Start Date End Date Diandra Grady MD [address] [place] [address] Dr [address] [facility] [place] [address] PCP - General Internal Medicine 07/15/21 documented as of this encounter
--- OUTSIDE RECORDS SUMMARY | 2024-09-16 15:38 | XMS_ITS | Clinical Summary ---
Author Organization [facility] 299 [facility] Address [address] [place] [address] Phone Care Team Providers Care Press Operator [employer] Products Name Role Phone Diandra Grady MD Primary Care Provider [phone] Allergies No known active allergies Medications Trulicity [...] Team Description 09/12/2024 Telephone Gastroenterology - [address] [phone] Eryn Lauren, PAWAN 09/09/2024 Telephone Gastroenterology - [address] [phone] Eryn Lauren, FILTER PRESS TENDER 09/08/2024 3:00 PM EST Office Visit Gastroenterology - [address] [place] [phone] Eryn Lauren, FILTER PRESS TENDER Cystic mass of pancreas (Primary Dx); Diarrhea, unspecified type; Type 1 diabetes mellitus with diabetic autonomic (poly)neuropathy ([facility]) 09/02/2024 Telephone Gastroenterology - [address] [phone] Brandie Bales MD medication question 08/26/2024 Telephone Gastroenterology - [address] [place] [phone] Rosemary Farmer MA Results 08/25/2024 2:40 PM EST Office Visit Gastroenterology - [address] [place] [phone] Eryn Lauren, FILTER PRESS TENDER Abnormal CT of the abdomen (Primary Dx); Dyspepsia 07/28/2024 Telephone Gastroenterology - [address] [place] [phone] Lucita Rojas MA 07/22/2024 2:31 PM EST - 07/22/2024 11:59 PM EST Hospital Encounter [facility] Xray [address] [place] [phone] Other constipation Discharge Disposition: Home or Self Care 07/22/2024 1:40 PM EST Office Visit Gastroenterology - [address] [phone] Eryn Lauren NP Gastroesophageal reflux disease, unspecified [...] PM EDT Office Visit Gastroenterology - [address] [phone] Eryn Lauren NP [address] [place] [address] 11/09/2024 2:40 PM EDT Office Visit Gastroenterology - [address] [phone] Brandie Bales MD [address] [address] Health Maintenance Due Date Last Done Comments [...] K/mcL LAB HEMETOLOGY METHOD 08/25/2024 4:05 PM [facility] RBC 4.50 3.80 - 4.80 M/mcL LAB HEMETOLOGY METHOD 08/25/2024 4:05 PM [facility] Hemoglobin 12.9 11.5 - 16.0 g/dL LAB HEMETOLOGY METHOD 08/25/2024 4:05 PM [facility] Hematocrit 40.2 35.0 - 47.0 % LAB HEMETOLOGY METHOD 08/25/2024 4:05 PM [facility] MCV 90.3 79.0 - 98.0 FL LAB HEMETOLOGY METHOD 08/25/2024 4:05 PM [facility] MCH 29.0 27.0 - 32.0 pcg LAB HEMETOLOGY METHOD 08/25/2024 4:05 PM [facility] MCHC 32.1 32.0 - 37.0 g/dL LAB HEMETOLOGY METHOD 08/25/2024 4:05 PM [facility] RDW 12.6 11.0 - 15.0 % LAB HEMETOLOGY METHOD 08/25/2024 4:05 PM [facility] Platelets 346 130 - 400 K/mcL LAB HEMETOLOGY METHOD 08/25/2024 4:05 PM [facility] MPV 9.4 7.0 - 11.0 FL LAB HEMETOLOGY METHOD 08/25/2024 4:05 PM [facility] NRBC 0.0 <1.0 % LAB HEMETOLOGY METHOD 08/25/2024 4:05 PM [facility] NRBC Absolute 0.00 <0.10 K/mcL LAB HEMETOLOGY METHOD 08/25/2024 4:05 PM [facility] Neutrophils Relative 58.4 % LAB HEMETOLOGY METHOD 08/25/2024 4:05 PM [facility] Lymphocytes Relative 33.4 % LAB HEMETOLOGY METHOD 08/25/2024 4:05 PM [facility] Monocytes Relative 5.8 % LAB HEMETOLOGY METHOD 08/25/2024 4:05 PM [facility] Eosinophils Relative 1.7 % LAB HEMETOLOGY METHOD 08/25/2024 4:05 PM [facility] Basophils Relative 0.4 % LAB HEMETOLOGY METHOD 08/25/2024 4:05 PM [facility] Immature Granulocytes Relative 0.3 % LAB HEMETOLOGY METHOD 08/25/2024 4:05 PM [facility] Neutrophils Absolute 5.27 1.50 - 7.00 K/mcL LAB HEMETOLOGY METHOD 08/25/2024 4:05 PM [facility] Lymphocytes Absolute 3.01 1.00 - 5.00 K/mcL LAB HEMETOLOGY METHOD 08/25/2024 4:05 PM EST [facility] Monocytes Absolute 0.52 0.20 - 1.00 K/mcL LAB HEMETOLOGY METHOD 08/25/2024 4:05 PM EST [facility] Eosinophils Absolute 0.15 0.00 - 0.50 K/mcL LAB HEMETOLOGY METHOD 08/25/2024 4:05 PM [facility] Basophils Absolute 0.04 0.00 - 0.20 K/mcL LAB HEMETOLOGY METHOD 08/25/2024 4:05 PM [facility] Immature Granulocytes Absolute 0.03 0.00 - 0.03 K/mcL LAB HEMETOLOGY METHOD 08/25/2024 4:05 PM [facility] Blood Venous blood specimen / Unknown Venipuncture / Unknown 08/25/2024 3:19 PM EST 08/25/2024 3:58 PM EST Eryn Lauren FILTER PRESS TENDER LAB BLOOD ORDERABLES Final Re sult [facility] [address] [place] [address], [place] [phone] * Lipase (08/25/2024 3:19 PM EST) [facility] Lipase 41 13 - 75 unit/L LAB CHEMISTRY METHOD 08/25/2024 4:32 PM EST [facility] Blood Venous blood specimen / Unknown Venipuncture / Unknown 08/25/2024 3:19 PM EST 08/25/2024 3:58 PM EST Eryn Lauren FILTER PRESS TENDER LAB BLOOD ORDERABLES Final Re sult [facility] [address] [place] [address], [place] [phone] * Amylase (08/25/2024 3:19 PM EST) Pathologist [facility] Amylase 80 25 - 115 unit/L LAB CHEMISTRY METHOD 08/25/2024 4:32 PM [facility] Blood Venous blood specimen / Unknown Venipuncture / Unknown 08/25/2024 3:19 PM EST 08/25/2024 3:58 PM EST us Eryn Lauren FILTER PRESS TENDER LAB BLOOD ORDERABLES Final Re sult [facility] [address] [place] [address], [place] [phone] * (ABNORMAL) Comprehensive metabolic panel (08/25/2024 3:19 PM EST) [facility] Sodium 137 133 - 145 mmol/L LAB CHEMISTRY METHOD 08/25/2024 4:32 PM [facility] Potassium 4.4 3.5 - 5.5 mmol/L LAB CHEMISTRY METHOD 08/25/2024 4:32 PM [facility] Chloride 103 96 - 110 mmol/L LAB CHEMISTRY METHOD 08/25/2024 4:32 PM [facility] CO2 26 21 - 32 mmol/L LAB CHEMISTRY METHOD 08/25/2024 4:32 PM [facility] Anion Gap 8 3 - 11 LAB CHEMISTRY METHOD 08/25/2024 4:32 PM [facility] Glucose 185(H) 70 - 100 mg/dL LAB CHEMISTRY METHOD 08/25/2024 4:32 PM [facility] BUN 20 5 - 25 mg/dL LAB CHEMISTRY METHOD 08/25/2024 4:32 PM [facility] Creatinine 1.42(H) 0.50 - 1.10 mg/dL LAB CHEMISTRY METHOD 08/25/2024 4:32 PM [facility] eGFR 40(L) >=60 mL/min/1. 73m2 LAB CHEMISTRY METHOD 08/25/2024 4:32 PM [facility] Comment:Calculation based on the??Chronic Kidney Disease Epidemiology Collaboration (CKD-EPI) equation refit??without adjustment for race. BUN/Creatinine Ratio 14.1 LAB CHEMISTRY METHOD 08/25/2024 4:32 PM [facility] Calcium 9.5 8.5 - 10.5 mg/dL LAB CHEMISTRY METHOD 08/25/2024 4:32 PM [facility] AST (SGOT) 20 10 - 42 unit/L LAB CHEMISTRY METHOD 08/25/2024 4:32 PM [facility] ALT (SGPT) 15 10 - 60 unit/L LAB CHEMISTRY METHOD 08/25/2024 4:32 PM [facility] Alkaline Phosphatase 76 42 - 121 unit/L LAB CHEMISTRY METHOD 08/25/2024 4:32 PM [facility] Total Protein 6.8 6.0 - 8.0 g/dL LAB CHEMISTRY METHOD 08/25/2024 4:32 PM [facility] Albumin 3.5 3.2 - 5.0 g/dL LAB CHEMISTRY METHOD 08/25/2024 4:32 PM [facility] Total Bilirubin 0.3 0.0 - 1.4 mg/dL LAB CHEMISTRY METHOD 08/25/2024 4:32 PM [facility] Blood Venous blood specimen / Unknown Venipuncture / Unknown 08/25/2024 3:19 PM EST 08/25/2024 3:58 PM EST us Eryn Lauren FILTER PRESS TENDER LAB BLOOD ORDERABLES Final Re sult [facility] [address] [place] [address], [place] [phone] * XR Abdomen 1 View (07/22/2024 2:44 PM EST) Anatomical Region Laterality Modality Body Radiographic Madonna ging 07/27/2024 8:19 AM EST Impressions 07/27/2024 8:21 AM EST Nonobstructive gas pattern. -------- FINAL REPORT -------- Dictated By: Regan Joe Dictated Date: 07/27/2024 08:19 ET Assigned Physician: Regan Joe Reviewed and Electronically Signed By: Regan Joe Signed Date: 07/27/2024 08:21 ET Workstation ID: [id number] Transcribed By: Self Edit Transcribed Date: 07/27/2024 [...] Signed Date: 07/27/2024 08:21 ET Workstation ID: [id number] Transcribed By: Self Edit Transcribed Date: 07/27/2024 08:19 ET Eryn Lauren FILTER PRESS TENDER IMG XR PROCEDURES Final Resul t * COLONOSCOPY (07/01/2016 9:36 AM EST) Anatomical Region Laterality Modality Endoscopy us Historical Provider GI~PROCEDURE ORDERABLES F inal Result from Last 3 Months or Most Recently Relevant to Health Maintenance Insurance [employer] MEDICARE ADVANTAGE MEDICAID - [place] Care Teams Press Operator Carbon Products Relationship Specialty Start Date End Date Diandra Grady MD [address] [place] [address] [address] [facility] [place] [address] PCP - General Internal Medicine 07/15/21
== END 2024-09-16 15:13 | disposition home or self-care (01) ==
PROVIDERS: PCP Internal Medicine
DX: H61.23 Impacted cerumen, bilateral (principal)

== ENCOUNTER 2024-09-23 14:47 | Outpatient (AMB) | payer MEDICARE, MEDICAID, SELFPAY ==
[2024-09-23 14:59] VITALS: BP 130/82; PULSE 93; O2SAT 98; BMI 19.6
--- NOTE | 2024-09-23 14:59 | A.OFFPC_ITS ---
Vital Signs 09/23/24 14:59 Height 5 ft 7 in Weight 125 lb BMI 19.6 BP 130/82 Blood Pressure Location Lt brachial Position Sitting Pulse 93 Pulse Source Pulse Oximeter Pulse Oximetry (%) 98 Oxygen Delivery Method Room Air Intake Visit Reasons: Ear flush Warehouse Trainer Required: No Accompanied by: Self / Same As Patient Allergies No Known Allergies Allergy (Verified 09/23/24 15:01) Medication List - Last Reconciled 09/23/24 by Diandra Grady, albuterol sulfate 90 mcg/actuation (Ventolin HFA) 2 puffs inhalation Q6H PRN alprazolam 2 mg PO BID-TID PRN aspirin (Adult Low Dose Aspirin) 81 mg PO DAILY atomoxetine 25 mg PO QAM atomoxetine 60 mg PO QAM blood sugar diagnostic As directed check blood sugars q.day blood-glucose meter As directed carbamide peroxide 6.5% (Debrox) 5 drps otic (ears) Q12H 4 days chlorthalidone 25 mg PO DAILY cholecalciferol (vitamin D3) 25 mcg PO DAILY cyanocobalamin (vitamin B-12) 1,000 mcg PO DAILY diphenoxylate-atropine 2.5-0.025 mg tabs PO BID doxazosin 2 mg PO BEDTIME dulaglutide 1.5 mg (0.5 mL) subcut QWEEK 30 days duloxetine 60 mg PO DAILY duloxetine 30 mg PO DAILY eletriptan (Relpax) 40 mg PO .QD PRN empagliflozin 25 mg PO QAM ezetimibe (Zetia) 10 mg PO DAILY 30 days flash glucose scanning reader (Integral Wave TechnologiesStyle [place] 2 [place]) As directed flash glucose sensor (FreeStyle [place] 2 Sensor kit) As directed hydroxyzine HCl 25 mg PO DAILY hydroxyzine HCl mg PO BEDTIME isosorbide mononitrate ER 30 mg PO DAILY lancets As directed lisinopril 20 mg PO DAILY loperamide 2 mg PO TID metformin ER 1,000 mg PO BID mupirocin 2% 1 appl topical 3XW naloxone 4 mg/actuation (Narcan) 4 mg intranasal Q3M PRN nebivolol 2.5 mg PO DAILY nitroglycerin 0.4 mg PO Every 5 minutes x3; omeprazole mg PO DAILY ondansetron 8 mg PO Q8H PRN oxycodone 15 mg PO Q6H PRN 30 days pen needle, diabetic As directed rosuvastatin 40 mg PO DAILY 30 days simethicone 125 mg PO TID PRN simethicone mg PO DAILY trazodone 50 mg PO BEDTIME PRN Tobacco use date assessed: 09/23/24 Fall risk assessment: No Falls in past year Last assessed Fall Risk: 09/23/24 Dental Screening Dental Screen Date: 09/23/24 Did you have a dental visit in the last 12 months?: Yes Did you have a dental problem in the last 6 months where you did not have access to dental care?: No Was dental information given to patient?: Patient has dentist HPI Ear flush HPI Details States GI doctor checking for SA 19 - negative, concer about hair loss and trulicity loosiung weight PFSH Medical History (Updated 09/23/24 @ 16:47 by Diandra Grady MD) Right iliac artery stenosis Osteoarthritis Hypercholesterolemia Coronary artery disease Attention deficit disorder Right radial fracture Pulmonary nodule Diabetic nephropathy Carotid stenosis Anxiety and depression Hypertension Type 2 diabetes mellitus with hyperglycemia Lumbar spondylosis Surgical History History of tooth extraction H/O endarterectomy Amputation toe Family History Father Stroke Mother Pancreatic cancer Son Sleep apnea Social History Housing: House Alcohol intake: current Alcohol intake frequency: holidays/special occasions only Alcohol type: wine Patient Tobacco Use Status: Current everyday Tobacco user Tobacco use type: Cigarette Cigarette Packs Per Day: 0.25 Cigarettes Per Day: 3 e-Cigarette/Vaping Use: Never Used Second Hand Smoke Exposure: Yes service: No Current occupational status: unemployed Cognitive needs: No Hearing needs: No Vision needs: Yes Questionnaire PHQ-9 Over the last 2 weeks, how often have you been bothered by any of the following problems? 1. Little interest or pleasure in doing things: not at all 2. Feeling down, depressed, or hopeless: not at all 3. Trouble falling or staying asleep, or sleeping too much: not at all 4. Feeling tired or having little energy: not at all 5. Poor appetite or overeating: not at all 6. Feeling bad about yourself - or that you are a failure or have let yourself or your family down: not at all 7. Trouble concentrating on things, such as reading the newspaper or watching television: not at all 8. Moving or speaking so slowly that other people could have noticed. Or the opposite - being so fidgety or restless that you have been moving around a lot more than usual: not at all 9. Thoughts that you would be better off or of hurting yourself in some way: not at all Total score: 0 Depression Screening Interpretation: Negative Depression Screening Done: Yes Source: Developed by Drs. George Andrew, Marion Vasques, Milad Goncalves and colleagues, with an educational jaylen from [employer]. Thrive Questionnaire Date Thrive assessed: 09/23/24 I am a: Patient What is your living situation today?: I have a steady place to live Within the past 12 months, did the food you bought not last and you didn't have the money to get more?: Never true Within the past 12 months, did you worry whether your food would run out before you got money to buy more?: Never true Do you have trouble paying for medicines?: No Do you have trouble getting transportation to medical appointments?: No Do you have trouble paying your heating and electricity bill?: No Do you have trouble taking care of your child, family member or friend?: No Do you have trouble with day-to-day activities such as bathing, preparing meals, shopping, managing finances, etc.?: No Are you currently unemployed and looking for a job?: No Are you interested in more education?: No Please select the resources that you would like help with: None Currently or been in a relationship where the following occur: No concerns reported THRIVE Score: 0 AUDIT C Alcohol Use Questionnaire (AUDIT-C) 1. How often do you have a drink containing alcohol?: Monthly or less 2. How many drinks containing alcohol do you have on a typical day when you are drinking?: 1 or 2 Total Score: 1 PATRIC-7 AMB Questionnaire PATRIC-7 Date PATRIC - 7 assessed: 09/23/24 Feeling nervous, anxious, or on edge: 0 = Not at all Not being able to stop or control worryin = Not at all Worrying too much about different things: 0 = Not at all Trouble relaxin = Not at all Being so restless that it is hard to sit still: 0 = Not at all Becoming easily annoyed or irritable: 0 = Not at all Feeling afraid as if something awful might happen: 0 = Not at all Total PATRIC-7 score (0-4 normal; 5-9 mild; 10-14 moderate; 15-21 severe): 0 Source: Developed by Drs. George Andrew, Marion Vasques, Milad Goncalves and colleagues, with an educational jaylen from [employer]. Physical exam (Primary Care) Vital Signs: Last Vital Signs Pulse 93 09/23/24 14:59 BP 130/82 09/23/24 14:59 Pulse Ox 98 09/23/24 14:59 Oxygen Delivery Method Room Air 09/23/24 14:59 BMI result Body Mass Index 19.6 Tobacco/Smoking Status: Tobacco use Status Tobacco use date assessed 09/23/24 09/23/24 15:04 Patient Tobacco Use Status Current everyday Tobacco 09/23/24 15:04 Tobacco use type Cigarette 09/23/24 15:04 e-Cigarette/Vaping Use Never Used 09/23/24 15:04 PHQ-9: PHQ-9 Score PHQ-9: Total score 0 09/23/24 16:24 Depression Screening Interpretation: Negative Thrive Assessment: Date of Thrive Assessment Date Thrive assessed 09/23/24 09/23/24 15:04 Currently or been in a relationship where the following occur: No concerns reported Office Procedures Cerumen Removal From which ear canal was the cerumen removed: bilateral Removal: irrigation, otoscope w/curette, cerumen loop/spoon and other Notes: patient tolerated procedure well, no complications and ear canal clear [id number] Irrigation/Lavage Coding Level of Care Code Est Pt Level 4 (31378) Diagnoses Alopecia L65.9 Impacted cerumen of both ears H61.23 Generalized anxiety disorder F41.1 CPT Codes Office Procedure - CPT: 98663-Thj Irrigation/Lavage ([id number]) Assessment & Plan Assessment & Plan (1) Alopecia: Code(s): L65.9 - Nonscarring hair loss, unspecified Category: Medical Plan: will work up and if negative will refer to dermatology (2) Impacted cerumen of both ears: Code(s): H61.23 - Impacted cerumen, bilateral Category: Medical Plan: irrigation done and scoop used TM intact (3) Generalized anxiety disorder: Comment: Bradley Umanafernando seeing Q 2 months Code(s): F41.1 - Generalized anxiety disorder Category: Medical Plan: advised to be referred to another therapist Plan History of Present Illness The patient is a 69-year-old female presenting with impacted cerumen. Her medical history includes diabetes mellitus, essential hypertension, coronary artery disease, and hypercholesterolemia. The conversation did not include specific historical details regarding the cerumen impaction such as the onset or associated symptoms, although it suggests a concern that warranted a visit. Her chronic conditions are acknowledged, with ongoing management assumed rather than detailed discussions on recent care or changes. Health Maintenance Social History - Substance Use: The patient is a smoker. Review of Systems Physical Exam Results Plan The management plan focused on the removal of impacted cerumen, although specific methodologies such as irrigation were documented in the conversation. The approach to ongoing management of her diabetes mellitus, essential hypertension, coronary artery disease, and hypercholesterolemia remains lola ddressed in this visit. Future visits may need to incorporate comprehensive review and management of her chronic conditions as well. Patient was informed and verbally consented to the use of an ambient scribe for clinic note documentation during this visit. Orders: Orders Complete Blood Count Auto Diff Today L65.9 - Nonscarring hair loss, unspecified Comprehensive Met. Panel Today L65.9 - Nonscarring hair loss, unspecified Free T4 (Free Thyroxine) Today L65.9 - Nonscarring hair loss, unspecified Thyroid Stimulating Hormone Today L65.9 - Nonscarring hair loss, unspecified Referrals Psychiatry Referral F41.1 - Generalized anxiety disorder Medications: Changed From alprazolam Bradley Footit Cassidy Q 2 weeks PRN F32.9 - Major depressive disorder, single episode, unspecified, F41.9 - Anxiety disorder, unspecified To alprazolam Bradley Footit Cassidy Q 2 weeks 2 mg PO BID-TID PRN 90 tabs 0RF anxiety F32.9 - Major depressive disorder, single episode, unspecified, F41.9 - Anxiety disorder, unspecified
--- OUTSIDE RECORDS SUMMARY | 2024-09-23 16:14 | XMS_ITS | Encounter Summary ---
Author Organization Michaela [facility] [place] [address] Care Team Providers Care Cooling Room Attendant Name Role Phone Diandra Grady MD Primary Care Provider [phone] Encounter Details Date Type Department Care Team (Late st Contact Info) Description 08/25/2024 2:40 PM EST Office Visit Gastroenterology - [address] [facility] [address] [place] [phone] Eryn Lauren, POWER HOUSE CONTROL ROOM OPERATOR [phone] of the abdomen (Primary Dx); [...] in this encounter Progress Notes * Eryn Gusmansi, PAWAN - 08/25/2024 2:40 PM EST CHIEF COMPLAINT: [...] piece together, she has been seen at [facility] in [place] after a fall she had at her daughters home. Next she was admitted to [facility] for sepsis, but is unclear where the infection was. Lastly she tells me she had an MRI at [facility] and was told to see us [...] in the patient's care. Board Certified Gastroenterology [facility] W [phone] [address] [email or web address] Eryn Lauren NP documented in this encounter Plan of Treatment Upcoming Encounters Date Type Department Care Team (Late st Contact Info) Description 10/17/2024 2:20 PM EDT Office Visit Gastroenterology - [address] [place] [phone] Eryn Lauren NP [address] [address] 11/09/2024 2:40 PM EDT Office Visit Gastroenterology - [address] [phone] Brandie Bales MD [address] [address] documented as of this encounter Results * (ABNORMAL) Comprehensive metabolic panel (08/25/2024 3:19 PM EST) Sodium 137 133 - 145 mmol/L LAB CHEMISTRY METHOD 08/25/2024 4:32 PM EST [facility] Potassium 4.4 3.5 - 5.5 [...] LAB CHEMISTRY METHOD 08/25/2024 4:32 PM EST [facility] Albumin 3.5 3.2 - 5.0 g/dL LAB CHEMISTRY METHOD 08/25/2024 4:32 PM EST [facility] Total Bilirubin 0.3 0.0 - 1.4 mg/dL LAB CHEMISTRY METHOD 08/25/2024 4:32 PM EST [facility] Blood Venous blood specimen / Unknown Venipuncture / Unknown 08/25/2024 3:19 PM EST 08/25/2024 3:58 PM EST us Eryn Lauren POWER HOUSE CONTROL ROOM OPERATOR LAB BLOOD ORDERABLES Final Re sult [facility] [address] [place] [address], [place] [phone] documented in this encounter Visit Diagnoses Diagnosis [...] 08/25/2024 documented in this encounter Care Teams Cooling Room Attendant Relationship Specialty Start Date End Date Diandra Grady MD [address] [place] [address] [address] [facility] [place] [address] PCP - General Internal Medicine 07/15/21 documented as of this encounter
--- OUTSIDE RECORDS SUMMARY | 2024-09-23 16:14 | XMS_ITS | Encounter Summary ---
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 I reviewed this [...] infectious colitis. We will refer her to [facility] for EUS. ROS: GENERAL: No malaise, [...] (STRATTERA) 25 mg capsule blood sugar diagnostic ([employer] Verio test strips) test strip cyanocobalamin (VITAMIN [...] in the patient's care. Board Certified Gastroenterology [facility] Debi [phone] [place] [phone] [email or web address] Eryn Lauren NP documented in this encounter Plan of Treatment Upcoming Encounters Date Type Department Care Team (Late st Contact Info) Description 10/17/2024 2:20 PM EDT Office Visit Gastroenterology - [address] [phone] Eryn Lauren NP [address] [address] 11/09/2024 2:40 PM EDT Office Visit Gastroenterology - [address] [phone] Brandie Bales MD [address] [address] Scheduled Orders Name Type Priority Associated Diagnoses Order Schedule Calprotectin, stool Lab Routine Diarrhea, unspecified type [...] diabetes mellitus with diabetic autonomic (poly)neuropathy (CMS/HCC) documented in this encounter Care Teams Consulting Intern Relationship Specialty Start Date End Date Miguel A, MD Diandra [address] [place] [address] [address] [facility] [place] [address] PCP - General Internal Medicine 07/15/21 documented as of this encounter
--- OUTSIDE RECORDS SUMMARY | 2024-09-23 16:14 | XMS_ITS | Encounter Summary ---
[facility] [place] [address] Care Team Providers Care Director Of Diagnostic Imaging Name Role Phone Diandra Grady MD Primary Care Provider [phone] Reason for Visit * Reason Onset Date Comments medication question 09/02/2024 Encounter Details Date Type Department Care Team ([facility] st Contact Info) Description 09/02/2024 Telephone Gastroenterology - [address] [facility] [address] [place] [phone] Brandie Bales MD [address] [place], [place] [phone] medication question Social History Tobacco Use Types [...] [address] [place] [phone] Eryn Lauren, PAWAN [address] [facility] [address] [place] [address] 11/09/2024 2:40 PM EDT Office Visit Gastroenterology - [address] [place] [phone] Brandie Bales MD [address] [facility] [address] [place] [address] documented as of this encounter Visit Diagnoses Not on filedocumented in this encounter Care Teams Director Of Diagnostic Imaging Relationship Specialty Start Date End Date Miguel A, MD Diandra [address] [place] [address] [address] [facility] [place] [address] PCP - General Internal Medicine 07/15/21 documented as of this encounter
--- OUTSIDE RECORDS SUMMARY | 2024-09-23 16:14 | XMS_ITS | Encounter Summary ---
Author Organization [place] [address] Care Team Providers Care Book Editor Name Role Phone Diandra Grady MD Primary Care Provider [phone] Reason for Visit * Reason Onset Date Comments Results 08/26/2024 Encounter Details Date Type Department Care Team (Late st Contact Info) Description 08/26/2024 Telephone Gastroenterology - [address] [place] [phone] Rosemary Farmer MA Results Social [...] Office Visit Gastroenterology - [address] [facility] [address] [place] [phone] Eryn Lauren NP [address] [place] [address] 11/09/2024 2:40 PM EDT Office Visit Gastroenterology - [address] [place] [phone] Brandie Bales MD [address] [place] [address] documented as of this encounter Visit Diagnoses Not on filedocumented in this encounter Care Teams Book Editor Relationship Specialty Start Date End Date Diandra Grady MD [address] [place] [address] [address] [facility] [place] [address] PCP - General Internal Medicine 07/15/21 documented as of this encounter
--- OUTSIDE RECORDS SUMMARY | 2024-09-23 16:14 | XMS_ITS | Encounter Summary ---
Author Organization Michaela [facility] [place] [address] Care Team Providers Care Tobacco Sizer Name Role Phone Diandra Grady MD Primary Care Provider [phone] Encounter Details Date Type Department Care Team (Late st Contact Info) Description 09/09/2024 Telephone Gastroenterology - [address] [place] [phone] Eryn Lauren NP [address] [place] [address] Social History Tobacco Use Types Packs/Day Years [...] Order sent to Dr. Manuel Hardin at [facility]. documented in this encounter Plan of Treatment Upcoming Encounters Date Type Department Care Team (Late st Contact Info) Description 10/17/2024 2:20 PM EDT Office Visit Gastroenterology - [address] [place] [phone] Eryn Lauren, PAWAN [address] [address] 11/09/2024 2:40 PM EDT Office Visit Gastroenterology - [address] [place] [phone] Brandie Bales MD [address] [facility] [address] [address] documented as of this encounter Visit Diagnoses Not on filedocumented in this encounter Care Teams Tobacco Sizer Relationship Specialty Start Date End Date Diandra Grady MD [address] [place] [address] [address] [facility] [place] [address] PCP - General Internal Medicine 07/15/21 documented as of this encounter
--- OUTSIDE RECORDS SUMMARY | 2024-09-23 16:14 | XMS_ITS | Encounter Summary ---
Author Organization [facility] [place] [address] Care Team Providers Care Welding Machine Operator/Tender Name Role Phone Diandra Grady MD Primary Care Provider [phone] Encounter Details Date Type Department Care Team (Late st Contact Info) Description 09/12/2024 Telephone Gastroenterology - [address] [facility] [address] [place] [phone] Eryn Lauren, LOAN SERVICING OFFICER [address] [place], [place] [phone] Social History Tobacco Use Types Packs/Day Years [...] RESENT ALL OF THE INFORMATION REQUIRED TO [facility]. * Eleanor Reynaga - 09/12/2024 11:13 AM EST PT REFERRED TO [facility] FOR EUS PROCEDURE BUT THEY WERE ONLY SENT A DEMO SHEET. THEY ARE REQ: -OV NOTES -MED LIST -LABS -IMAGING FAX#[phone] documented in this encounter Plan of Treatment Upcoming Encounters Date Type Department Care Team (Late st Contact Info) Description 10/17/2024 2:20 PM EDT Office Visit Gastroenterology - [address] [place] [phone] Eryn Lauren, LOAN SERVICING OFFICER [address] [address] 11/09/2024 2:40 PM EDT Office Visit Gastroenterology - [address] [phone] Brandie Bales MD [address] [place] [address] documented as of this encounter Visit Diagnoses Not on filedocumented in this encounter Care Teams Welding Machine Operator/Tender Relationship Specialty Start Date End Date Miguel A, MD Diandra [address] [place] [address] [address] [facility] [place] [address] PCP - General Internal Medicine 07/15/21 documented as of this encounter
--- OUTSIDE RECORDS SUMMARY | 2024-09-23 16:15 | XMS_ITS | Encounter Summary ---
Author Organization [facility] [place] [address] Care Team Providers Care Manager Family Name Role Phone Diandra Grady MD Primary Care Provider [phone] Encounter Details Date Type Department Care Team (Late st Contact Info) Description 09/19/2024 10:05 AM EDT Lab Draw Station - [address] [place] [address] Other abnormal tumor markers (Primary Dx) Social History Tobacco Use Types Packs/Day Years Used Date Smoking Tobacco: Former Cigarettes Smokeless Tobacco: Never Comments Unknown Sex and Gender Information Value Date Recorded Sex Assigned at Not on file Legal Sex Female 3:19 PM EST Gender Identity Not on file Sexual Orientation Not on file documented as of this encounter Progress Notes * Eryn Lauren NP - 09/19/2024 10:05 AM EDT Please let pt know tumor marker negative!! documented in this encounter Plan of Treatment Upcoming Encounters Date Type Department Care Team (Late st Contact Info) Description 10/17/2024 2:20 PM EDT Office Visit Gastroenterology - [address] [place] [phone] Eryn Lauren NP [address] [place] [address] 11/09/2024 2:40 PM EDT Office Visit Gastroenterology - [address] [place] [address] Brandie Bales MD 299 [facility] [address] [place] [address] documented as of this encounter Procedures Procedure Name Priority Date/Time Associated Diagnosis Comments CANCER ANTIGEN 19-9 Routine 09/19/2024 1 0:18 AM EDT Other abnormal tumor markers documented in this encounter Results * Cancer antigen 19-9 (09/19/2024 10:18 AM EDT) CA 19-9 34.0 <=35 U/mL 09/21/2024 10:56 AM EDT [facility] Comment: The Siemens Advia Centaur CA199 Chemiluminescent Immunoassay is used. Results obtained with different assay methods or kits cannot be used interchangeably. Results cannot be interpreted as absolute evidence of the presence or absence of malignant disease. Test performed at [facility], [address] , [place], [place] [address] ? [phone] Mojgan Casiano MD, PhD - Risk Modeler Blood Venous blood specimen / Unknown Venipuncture / Unknown 09/19/2024 10:18 AM EDT 09/19/2024 11:39 AM EDT us Eryn Lauren NP LAB BLOOD ORDERABLES Final Re sult [facility] [address] [place] [address] documented in this encounter Visit Diagnoses Diagnosis Other abnormal tumor markers- Primary documented in this encounter Care Teams Manager Family Relationship Specialty Start Date End Date Diandra Grady MD [address] [place] [address] [address] [facility] [place] [address] PCP - General Internal Medicine 07/15/21 documented as of this encounter
--- OUTSIDE RECORDS SUMMARY | 2024-09-23 16:15 | XMS_ITS | Encounter Summary ---
Author Organization [facility] Address [address] [place] [address] Care Team Providers Care Consulting Senior Practice Director Name Role Phone Maren Martel JUDY Primary Care Provider [phone] Reason for Visit * Reason Comments Removable Prosthetics Encounter Details Date Type Department Care Team (Late st Contact Info) Description 09/13/2024 4:20 PM EST Office Visit [facility] [address] [place] [phone] Maren Martel, JUDY [address] [place], [place] [phone] Missing teeth, acquired (Primary Dx) Social History [...] Complete Denture wax rims and bite registration. Water Treatment Plant Repairer: No Chief Complaint Patient presents with Removable [...] using PARQ. Dental procedures in this visit [id number] - COMPLETE DENTURE - IN PROCESS (Completed) [...] Care Team (Late st Contact Info) Description 09/27/2024 3:00 PM EDT Office Visit [address] [phone] Maren Martel DMD [address] [place] [address] 10/04/2024 3:00 PM EDT Office Visit [address] [place] [address] Maren Martel DMD [address] [place] [address] documented as of this encounter Procedures Procedure Name Priority Date/Time Associated Diagnosis Comments COMPLETE DENTURE - IN PROCESS Routine 09/13/2024 4:20 PM EST Missing teeth, acquired documented in this encounter Visit Diagnoses Diagnosis Missing teeth, acquired- Primary Acquired absence of teeth, unspecified documented in this encounter Care Teams Consulting Senior Practice Director Relationship Specialty Start Date End Date Maren Martel DMD [address] [place] [address] PCP - General 03/24/19 documented as of this encounter
--- OUTSIDE RECORDS SUMMARY | 2024-09-23 16:15 | XMS_ITS | Encounter Summary ---
Author Organization [facility] [place] [place] [address] Care Team Providers Care Meat And Seafood Clerk Name Role Phone Diandra Grady MD Primary Care Provider [phone] Reason for Visit * Reason Onset Date Comments Results 09/21/2024 Encounter Details Date Type Department Care Team (Late st Contact Info) Description 09/21/2024 Telephone Gastroenterology - [address] [place] [address] Carmen Vo MA Results Social History Tobacco Use Types Packs/Day Years Used Date Smoking Tobacco: Former Cigarettes Smokeless Tobacco: Never Comments Unknown Sex and Gender Information Value Date Recorded Sex Assigned at Not on file Legal Sex Female 3:19 PM EST Gender Identity Not on file Sexual Orientation Not on file documented as of this encounter Progress Notes * Carmen Vo MA - 09/21/2024 1:26 PM EDT SPOKE WITH PATIENT AND LET HER KNOW THE TUMOR MARKER WAS NEGATIVE. * Carmen Vo MA - 09/21/2024 1:26 PM EDT ----- Message from Sukhjinder Lauren NP sent at 09/21/2024 11:57 AM EDT ----- Please let pt know tumor marker negative!! documented in this encounter Plan of Treatment Upcoming Encounters Date Type Department Care Team (Late st Contact Info) Description 10/17/2024 2:20 PM EDT Office Visit Gastroenterology - [address] [facility] [address] [place] [phone] Eryn Lauren, MANAGEMENT CONSULTING [address] [facility] [address] [address] 11/09/2024 2:40 PM EDT Office Visit Gastroenterology - [address] [place] [address] [address] [place] [phone] Brandie Bales MD [address] [address] documented as of this encounter Visit Diagnoses Not on filedocumented in this encounter Care Teams Meat And Seafood Clerk Relationship Specialty Start Date End Date Diandra Grady MD [address] [place] [address] [address] [facility] [place] [address] PCP - General Internal Medicine 07/15/21 documented as of this encounter
--- OUTSIDE RECORDS SUMMARY | 2024-09-23 16:15 | XMS_ITS | Clinical Summary ---
Author Organization [facility] Address [address] [place] [address] Care Team Providers Care Testboard Operator Name Role Phone Maren Martel DMD Primary Care Provider [phone] Source Comments PLEASE NOTE, if this patient [...] Encounters Date Type Department Care Team Description 09/20/2024 4:20 PM EDT Office Visit [facility] [place] [phone] Maren Martel, DMD Missing teeth, acquired (Primary Dx) 09/13/2024 4:20 PM EST Office Visit [place] [address] [place] [phone] Maren Martel, DMD Missing teeth, acquired (Primary Dx) 09/02/2024 3:40 PM EST Office Visit [address] [phone] DelonteMaren, DMD Missing teeth, acquired (Primary Dx) 07/29/2024 2:00 PM EST Office Visit [facility] [address] [place] [phone] Yoo-Roa, Marko, DDS Retained tooth root (Primary Dx); Caries 07/29/2024 11:00 AM EST Office Visit [facility] [address] [place] [phone] DelonteMaren, DMD Missing teeth, acquired (Primary Dx) 07/29/2024 [...] Sign Reading Time Taken Comments Blood Pressure 135/69 09/20/2024 4:35 PM EDT Pulse 86 09/20/2024 4:35 PM EDT Temperature - - Respiratory Rate - - Oxygen Saturation - - Inhaled Oxygen Concentration - - Weight - - Height - - Body Mass Index - - Plan of Treatment Upcoming Encounters Date Type Department Care Team (Late st Contact Info) Description 09/27/2024 3:00 PM EDT Office Visit [facility] [address] [place] [phone] Maren Martel, JUDY [address] [place] [address] 10/04/2024 3:00 PM EDT Office Visit [facility] [address] [place] [phone] Maren Martel, JUDY [address] [place] [address] Health Maintenance Due Date Last Done Comments [...] Bone Density Screening 2018 Falls Prevention 2018 [id number] ( season) 2024 Imm-Influenza (#1) 2024 06/19/2017, 1 08/17/2016, 04/17/2016, Additional history exists Alcohol and Drug Screen 07/13/2024 Depression Annual Screen 07/13/2024 Dental Examination 06/18/2025 06/16/2024 Hypertension Screening (#1) 09/20/2025 Dental FMX/Pano 06/18/2029 06/16/2024 Procedures Procedure Name Priority Date/Time Associated Diagnosis Comments COMPLETE DENTURE - IN PROCESS Routine 09/20/2024 4:20 PM EDT Missing teeth, acquired COMPLETE DENTURE - IN PROCESS Routine 09/13/2024 [...] Most Recently Relevant to Health Maintenance Insurance [place] MEDICAID DENTAL Care Teams Testboard Operator Relationship Specialty Start Date End Date Maren Martel DMD [address] [place] [address] PCP - General 03/24/19
--- OUTSIDE RECORDS SUMMARY | 2024-09-23 16:15 | XMS_ITS | Clinical Summary ---
Author Organization [facility] Address [address] [place] [address] Care Team Providers Care Candy Maker Helper Name Role Phone Unavailable Primary Care Provider [...]
--- OUTSIDE RECORDS SUMMARY | 2024-09-23 16:15 | XMS_ITS | Encounter Summary ---
Author Organization [facility] Address [address] [place] [address] Care Team Providers Care Camp Maintenance Supervisor Name Role Phone Maren Martel JUDY Primary Care Provider [phone] Reason for Visit * Reason Comments Removable Prosthetics Encounter Details Date Type Department Care Team (Late st Contact Info) Description 09/02/2024 3:40 PM EST Office Visit [facility] [address] [place] [phone] Maren Martel, JUDY [address] [place], [place] [phone] Missing teeth, acquired (Primary Dx) Social History [...] PM EST Dental Removable - Impressions SUBJECTIVE: Lnea Bill, 69 year old female, presents alone for Maxillary Complete Denture and Mandibular Complete Denture Final Impressions. Coal Crusher Operator: No Chief Complaint Patient presents with [...] using PARQ. Dental procedures in this visit [id number] - COMPLETE DENTURE - IN PROCESS (Completed) [...] Description 09/27/2024 3:00 PM EDT Office Visit [place] [address] [place] [phone] Delonte Maren JUDY [address] [place], [place] [phone] 10/04/2024 3:00 PM EDT Office Visit [place] [address] [place] [phone] DelonteMaren, JUDY [address] [place], [place] [phone] Scheduled Orders Name Type Priority Associated Diagnoses [...] unspecified documented in this encounter Care Teams Camp Maintenance Supervisor Relationship Specialty Start Date End Date Maren Martel DMD [address] [place], [place] [phone] PCP - General 03/24/19 documented as of this encounter
--- OUTSIDE RECORDS SUMMARY | 2024-09-23 16:15 | XMS_ITS ---
Author Organization [facility] Address [address] [place] [address] Care Team Providers Care Vineyardist Name Role Phone Diandra Grady Primary Care Provider Unavailabl e Black, Camryn Unavailable [phone] REASON FOR VISIT Pcp ref Encounters Encounter Location Date Provider Diagnosis [facility] [address] [place] [address] 09/06/2024 Camryn Black Plan Of Treatment No Information Progress Notes * FLY, JoJerOB:1955 (69 yo F)Acc No.[id number]:09/06/2024 Patient:?Lena BILL :1955???Age:69 Y???Sex:Female Address:[address] [place] [address] * true * Date:? Generated for Matthewi sebastien/Fasherrell/eTransmitting on:?09/23/2024 04:14 PM EDT
--- OUTSIDE RECORDS SUMMARY | 2024-09-23 16:15 | XMS_ITS | Patient Health Record ---
Author Organization [facility] Address [address] [facility] [place] [address] Care Team Providers Care Kersey Department Supervisor Name Role Phone Miguel A, Diandra Primary Care Provider Unavailabl e Black, Camryn Unavailable [phone] Reason For Referral No Information Medications Medication [...] Problem Acquired hammer toe of right foot (4297717073896535 ) Other hammer toe(s) (acquired), right foot (M20.41) Active confirmed Problem Acquired hammer toe of left foot (6340924559072658 ) Other hammer toe(s) (acquired), left foot (M20.42) Active confirmed Problem Polyneuropathy due to type 2 diabetes mellitus (799203303) Type 2 diabetes mellitus with diabetic polyneuropathy (E11.42) Active confirmed Encounters Encounter Location Date Provider Diagnosis [facility] [place] [address] [place] [address] 09/06/2024 Camryn Lazaro Plan Of Treatment Pending Test Test Name Order Date [id number] NAIL, 6 OR MORE 10/09/2015 [id number] NAIL, 6 OR MORE 11/01/2015 17592-[id number] NAIL, 6 OR MORE 01/02/2017 87292-PPSMJSG NAIL, 6 OR MORE 08/10/2017 88664-[id number] NAIL, 1-5 12/25/2015 [id number] NAIL, 1-5 01/09/2016 46833- Debride <25 sq cm 10/09/2015 49949-GCHPUQT SKIN/TISSUE 01/09/2016 72822-BSPFGPH SKIN/TISSUE 11/01/2015 53545-KRTWHAW SKIN/TISSUE 11/29/2015 52154-GNOTJIW SKIN/TISSUE 12/25/2015 83164-QAYH SKIN LESIONS, OVER 4 01/03/20 17 82159-HWRM SKIN LESIONS, OVER 4 08/10/19 18 34322-MOSX SKIN LESIONS, 2 TO 4 10/09/19 16 Insurance Providers Payer Name Payer Address Payer Phone Subscriber Number Group Number Insured Name Patient Relationship to Insured Coverage Start Date Coverage End Date A[employer] Medicare Complete [address] [address] [place] [address] [phone] [id number] Lena Bill Self - patient is the insured Medical (General) History Medical History History ICD Code Anxiety Arthritis Cataracts Depression type II diabetes Neuropathy High blood pressure Headaches Psychiatric disorder Back,Hip,and Knee pain Reflux Measles Mumps Chicken pox Surgical History Surgery Date(Month/Year) Stent at 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
--- OUTSIDE RECORDS SUMMARY | 2024-09-23 16:15 | XMS_ITS | Encounter Summary ---
Author Organization [facility] Address [address] [place] [address] Care Team Providers Care Media Professional Name Role Phone Maren Martel JUDY Primary Care Provider [phone] Reason for Visit * Reason Comments Removable Prosthetics Encounter Details Date Type Department Care Team (Late st Contact Info) Description 09/20/2024 4:20 PM EDT Office Visit [facility] [address] [place] [phone] Maren Martel, JUDY [address] [place], [place] [phone] Missing teeth, acquired (Primary Dx) Social History [...] Progress Notes * Maren Martel DMD - 09/20/2024 4:53 PM EDT Dental Removable - Try-in SUBJECTIVE: Lena Bill, 69 year old female, presents alone for Maxillary Complete Denture and Mandibular Complete Denture try-in. Hand Silvering Supervisor: No Chief Complaint Patient presents with Removable Prosthetics OBJECTIVE: RMHx: Yes Vitals: Vitals: 09/20/24 1635 BP: 135/69 Pulse: 86 ASSESSMENT: Dx: K08.109 Missing teeth, acquired (primary encounter diagnosis) PLAN: Informed Consent/PARQ (Procedure, Alternatives, Risks, Questions): Patient confirms informed consent using PARQ. Dental procedures in this visit [id number] - COMPLETE DENTURE - IN PROCESS (Completed) Service provider: Maren Martel DMD Billing provider: Maren Martel DMD Seated Maxillary Complete Denture and Mandibular Complete Denture wax try-in. Retention is acceptable: N/A Checked Occl: Yes Adjustment required: no. Details: N/A Checked VDO/VDR & occlusal plane: Yes Pt pleased with esthetics, including: shade, tooth position, smile line, midline, incisal edge, incisal length, and lip support Pt pleased with fit, occlusion and retention: No, pt has gag reflex in all appts and feels discomfort with everything that is inside her mouth for the fabrication of the dentures: trays, wax rims, try ins. Pt has a tendency to cross bite by the protrusion of her mandible creating a false class III. Advised pt about muscle memory and the need to position her jaw inward. Pt approves to process for delivery: yes Post-Op Information Given: verbal Referral: No orders of the following type(s) were placed in this encounter: Referral. Rx: No orders of the defined types were placed in this encounter. Behavior: Semicompliant - DA: Ynes Puente [place]: Treatment - Denture Visit/delivery documented in this encounter Plan of Treatment Upcoming Encounters Date Type Department Care Team (Late st Contact Info) Description 09/27/2024 3:00 PM EDT Office Visit [place] [address] [place] [phone] Maren Martel DMD [address] [place] [address] 10/04/2024 3:00 PM EDT Office Visit [address] [phone] Maren Martel DMD [address] [place] [address] documented as of this encounter Procedures Procedure Name Priority Date/Time Associated Diagnosis Comments COMPLETE DENTURE - IN PROCESS Routine 09/20/2024 4:20 PM EDT Missing teeth, acquired documented in this encounter Visit Diagnoses Diagnosis Missing teeth, acquired- Primary Acquired absence of teeth, unspecified documented in this encounter Care Teams Media Professional Relationship Specialty Start Date End Date Maren Martel DMD [address] [place] [address] PCP - General 03/24/19 documented as of this encounter
--- OUTSIDE RECORDS SUMMARY | 2024-09-23 16:15 | XMS_ITS | Clinical Summary ---
Author Organization [facility] [address] [facility] Address [address] [place] [address] Phone Care Team Providers Care Senior Applications Analyst Name Role Phone Diandra Grady MD Primary Care Provider [phone] Allergies No known active allergies Medications Trulicity [...] Encounters Date Type Department Care Team Description 09/21/2024 Telephone Gastroenterology - [address] [place] [phone] Carmen Vo MA Results 09/19/2024 10:05 AM EDT Lab Draw Station - [address] [place] [address] [place] [phone] Other abnormal tumor markers (Primary Dx) 09/12/2024 Telephone Gastroenterology - [address] [place] [phone] Eryn Lauren, STILL OPERATOR GIN 09/09/2024 Telephone Gastroenterology - [address] [place] [phone] Eryn Lauren, STILL OPERATOR GIN 09/08/2024 3:00 PM EST Office Visit Gastroenterology - [address] [place] [phone] Eryn Lauren, STILL OPERATOR GIN Cystic mass of pancreas (Primary Dx); Diarrhea, unspecified type; Type 1 diabetes mellitus with diabetic autonomic (poly)neuropathy ([facility]) 09/02/2024 Telephone Gastroenterology - [address] [place] [phone] Brandie Bales MD medication question 08/26/2024 Telephone Gastroenterology - [address] [phone] Rosemary Farmer MA Results 08/25/2024 2:40 PM EST Office Visit Gastroenterology - [address] [place] [phone] Eryn Lauren, STILL OPERATOR GIN Abnormal CT of the abdomen (Primary Dx); Dyspepsia 07/28/2024 Telephone Gastroenterology - [address] [place] [phone] Lucita Rojas MA 07/22/2024 2:31 PM EST - 07/22/2024 11:59 PM EST Hospital Encounter [facility] Xray [address] [place] [phone] Other constipation Discharge Disposition: Home or Self Care 07/22/2024 1:40 PM EST Office Visit Gastroenterology - [address] [phone] Eryn Lauren, PAWAN Gastroesophageal reflux disease, unspecified whether esophagitis present [...] PM EDT Office Visit Gastroenterology - [address] [phone] Eryn Lauren NP [address] [address] 11/09/2024 2:40 PM EDT Office Visit Gastroenterology - [address] [phone] Brandie Bales MD [address] [phone] Health Maintenance Due Date Last Done Comments [...] 0:18 AM EDT Other abnormal tumor markers CBC WITH AUTO DIFFERENTIAL Routine 08/25/2024 3:19 [...] Recently Relevant to Health Maintenance Results * Cancer antigen 19-9 (09/19/2024 10:18 AM EDT) CA 19-9 34.0 <=35 U/mL 09/21/2024 10:56 AM EDT [facility] Comment: The Siemens Advia Centaur CA199 Chemiluminescent Immunoassay is used. Results obtained with different assay methods or kits cannot be used interchangeably. Results cannot be interpreted as absolute evidence of the presence or absence of malignant disease. Test performed at [facility], [address], [place], [place] ??[address] ? [phone] Mojgan Casiano MD, PhD - [employer] Blood Venous blood specimen / Unknown Venipuncture / Unknown 09/19/2024 10:18 AM EDT 09/19/2024 11:39 AM EDT us Eryn Lauren STILL OPERATOR GIN LAB BLOOD ORDERABLES Final Re sult [facility] [address] [place] [address] * CBC auto differential (08/25/2024 3:19 PM EST) [facility] WBC 9.0 4.8 - 10.8 K/mcL LAB HEMETOLOGY METHOD 08/25/2024 4:05 PM [facility] RBC 4.50 3.80 - 4.80 M/mcL LAB HEMETOLOGY METHOD 08/25/2024 4:05 PM [facility] Hemoglobin 12.9 11.5 - 16.0 g/dL LAB HEMETOLOGY METHOD 08/25/2024 4:05 PM [facility] Hematocrit 40.2 35.0 - 47.0 % LAB HEMETOLOGY METHOD 08/25/2024 4:05 PM [facility] MCV 90.3 79.0 - 98.0 FL LAB HEMETOLOGY METHOD 08/25/2024 4:05 PM [facility] MCH 29.0 27.0 - 32.0 pcg LAB HEMETOLOGY METHOD 08/25/2024 4:05 PM [facility] MCHC 32.1 32.0 - 37.0 g/dL LAB HEMETOLOGY METHOD 08/25/2024 4:05 PM [facility] RDW 12.6 11.0 - 15.0 % LAB HEMETOLOGY METHOD 08/25/2024 4:05 PM [facility] Platelets 346 130 - 400 K/mcL LAB HEMETOLOGY METHOD 08/25/2024 4:05 PM [facility] MPV 9.4 7.0 - 11.0 FL LAB HEMETOLOGY METHOD 08/25/2024 4:05 PM [facility] NRBC 0.0 <1.0 % LAB HEMETOLOGY METHOD 08/25/2024 4:05 PM [facility] NRBC Absolute 0.00 <0.10 K/mcL LAB HEMETOLOGY METHOD 08/25/2024 4:05 PM [facility] Neutrophils Relative 58.4 % LAB HEMETOLOGY METHOD 08/25/2024 4:05 PM [facility] Lymphocytes Relative 33.4 % LAB HEMETOLOGY METHOD 08/25/2024 4:05 PM [facility] Monocytes Relative 5.8 % LAB HEMETOLOGY METHOD 08/25/2024 4:05 PM [facility] Eosinophils Relative 1.7 % LAB HEMETOLOGY METHOD 08/25/2024 4:05 PM [facility] Basophils Relative 0.4 % LAB HEMETOLOGY METHOD 08/25/2024 4:05 PM [facility] Immature Granulocytes Relative 0.3 % LAB HEMETOLOGY METHOD 08/25/2024 4:05 PM [facility] Neutrophils Absolute 5.27 1.50 - 7.00 K/mcL LAB HEMETOLOGY METHOD 08/25/2024 4:05 PM [facility] Lymphocytes Absolute 3.01 1.00 - 5.00 K/mcL LAB HEMETOLOGY METHOD 08/25/2024 4:05 PM [facility] Monocytes Absolute 0.52 0.20 - 1.00 K/mcL LAB HEMETOLOGY METHOD 08/25/2024 4:05 PM [facility] Eosinophils Absolute 0.15 0.00 - 0.50 K/mcL LAB HEMETOLOGY METHOD 08/25/2024 4:05 PM [facility] Basophils Absolute 0.04 0.00 - 0.20 K/[facility] LAB HEMETOLOGY METHOD 08/25/2024 4:05 PM EST [facility] Immature Granulocytes Absolute 0.03 0.00 - 0.03 K/[facility] LAB HEMETOLOGY METHOD 08/25/2024 4:05 PM EST [facility] Blood Venous blood specimen / Unknown Venipuncture / Unknown 08/25/2024 3:19 PM EST 08/25/2024 3:58 PM EST us Eryn Lauren STILL OPERATOR GIN LAB BLOOD ORDERABLES Final Re sult Performing Organization Address [facility]/ZIP Co de Phone Number [facility] [address] [place] [address], [place] [phone] * Lipase (08/25/2024 3:19 PM EST) Lipase 41 13 - 75 unit/L LAB CHEMISTRY METHOD 08/25/2024 4:32 PM EST [facility] Blood Venous blood specimen / Unknown Venipuncture / Unknown 08/25/2024 3:19 PM EST 08/25/2024 3:58 PM EST us Eryn Lauren STILL OPERATOR GIN LAB BLOOD ORDERABLES Final Re sult Performing Organization Address [facility]/ZIP Co de Phone Number [facility] [address] [place] [address], [place] [phone] * Amylase (08/25/2024 3:19 PM EST) Amylase 80 25 - 115 unit/L LAB CHEMISTRY METHOD 08/25/2024 4:32 PM EST [facility] Blood Venous blood specimen / Unknown Venipuncture / Unknown 08/25/2024 3:19 PM EST 08/25/2024 3:58 PM EST us Eryn Lauren STILL OPERATOR GIN LAB BLOOD ORDERABLES Final Re sult [facility] [address] [place] [address], * (ABNORMAL) Comprehensive metabolic panel (08/25/2024 3:19 PM EST) Sodium 137 133 - 145 mmol/L LAB CHEMISTRY METHOD 08/25/2024 4:32 PM EST [facility] Potassium 4.4 3.5 - 5.5 mmol/L LAB CHEMISTRY METHOD 08/25/2024 4:32 PM [facility] Chloride 103 96 - 110 mmol/L LAB CHEMISTRY METHOD 08/25/2024 4:32 PM [facility] CO2 26 21 - 32 mmol/L LAB CHEMISTRY METHOD 08/25/2024 4:32 PM [facility] Anion Gap 8 3 - 11 LAB CHEMISTRY METHOD 08/25/2024 4:32 PM [facility] Glucose 185(H) 70 - 100 mg/dL LAB CHEMISTRY METHOD 08/25/2024 4:32 PM [facility] BUN 20 5 - 25 mg/dL LAB CHEMISTRY METHOD 08/25/2024 4:32 PM [facility] Creatinine 1.42(H) 0.50 - 1.10 mg/dL LAB CHEMISTRY METHOD 08/25/2024 4:32 PM [facility] eGFR 40(L) >=60 mL/min/1. 73m2 LAB CHEMISTRY METHOD 08/25/2024 4:32 PM [facility] Comment:Calculation based on the??Chronic Kidney Disease Epidemiology Collaboration (CKD-EPI) equation refit??without adjustment for race. BUN/Creatinine Ratio 14.1 LAB CHEMISTRY METHOD 08/25/2024 4:32 PM [facility] Calcium 9.5 8.5 - 10.5 mg/dL LAB CHEMISTRY METHOD 08/25/2024 4:32 PM [facility] AST (SGOT) 20 10 - 42 unit/L LAB CHEMISTRY METHOD 08/25/2024 4:32 PM [facility] ALT (SGPT) 15 10 - 60 unit/L LAB CHEMISTRY METHOD 08/25/2024 4:32 PM [facility] Alkaline Phosphatase 76 42 - 121 unit/L LAB CHEMISTRY METHOD 08/25/2024 4:32 PM [facility] Total Protein 6.8 6.0 - 8.0 g/dL LAB CHEMISTRY METHOD 08/25/2024 4:32 PM [facility] Albumin 3.5 3.2 - 5.0 g/dL LAB CHEMISTRY METHOD 08/25/2024 4:32 PM [facility] Total Bilirubin 0.3 0.0 - 1.4 mg/dL LAB CHEMISTRY METHOD 08/25/2024 4:32 PM [facility] Blood Venous blood specimen / Unknown Venipuncture / Unknown 08/25/2024 3:19 PM EST 08/25/2024 3:58 PM EST us Eryn Lauren NP LAB BLOOD ORDERABLES Final Re sult [facility] [address] [place] [address], [place] [phone] * XR Abdomen 1 View (07/22/2024 2:44 PM EST) Anatomical Region Laterality Modality Body Radiographic Madonna ging 07/27/2024 8:19 AM EST Impressions 07/27/2024 8:21 AM EST Nonobstructive gas pattern. -------- FINAL REPORT -------- Dictated By: Regan Joe Dictated Date: 07/27/2024 08:19 ET Assigned Physician: Regan Joe Reviewed and Electronically Signed By: Regan Joe Signed Date: 07/27/2024 08:21 ET Workstation ID: [id number] Transcribed By: Self Edit Transcribed Date: 07/27/2024 [...] Signed Date: 07/27/2024 08:21 ET Workstation ID: [id number] Transcribed By: Self Edit Transcribed Date: 07/27/2024 08:19 ET Eryn Lauren STILL OPERATOR GIN IMG XR PROCEDURES Final Resul t * COLONOSCOPY (07/01/2016 9:36 AM EST) Anatomical Region Laterality Modality Endoscopy Historical Provider GI~PROCEDURE ORDERABLES F inal Result from Last 3 Months or Most Recently Relevant to Health Maintenance Insurance [employer] MEDICARE ADVANTAGE MEDICAID - [place] Care Teams Senior Applications Analyst Relationship Specialty Start Date End Date Diandra Grady MD [address] [facility] [address] [facility] [place] [address] PCP - General Internal Medicine 07/15/21
== END 2024-09-23 17:08 | disposition home or self-care (01) ==
PROVIDERS: PCP Internal Medicine; Visit Provider Internal Medicine
DX: L65.9 Nonscarring hair loss, unspecified (principal); H61.23 Impacted cerumen, bilateral; F41.1 Generalized anxiety disorder

== ENCOUNTER → 2024-09-23 14:47 | Outpatient (BNVA) | payer MEDICARE, MEDICAID, SELFPAY | PROVIDERS: PCP Internal Medicine; Visit Provider Internal Medicine | DX: L65.9 Nonscarring hair loss, unspecified (principal); F41.1 Generalized anxiety disorder; H61.23 Impacted cerumen, bilateral | CPT/HCPCS: 69210; 99212 ==

== ENCOUNTER 2024-10-10 11:26 | Outpatient (AMB) | payer MEDICARE, MEDICAID, SELFPAY ==
[2024-10-10 11:27] VITALS: BP 130/60; PULSE 93; TEMP 36.3; O2SAT 95; BMI 19.9
--- NOTE | 2024-10-10 11:27 | MHC.PC.OV ---
Vital Signs 10/10/24 11:27 Height 5 ft 7 in Weight 127 lb 6 oz BMI 19.9 BP 130/60 Blood Pressure Location Lt brachial Position Sitting Pulse 93 Pulse Source Pulse Oximeter Temp 97.3 F Temp Source Temporal Artery Scan Pulse Oximetry (%) 95 Oxygen Delivery Method Room Air Intake Visit Reasons: Med Check Allergies No Known Allergies Allergy (Verified 10/10/24 11:32) Medication List - Last Reconciled 10/10/24 by Diandra Larios Po, albuterol sulfate 90 mcg/actuation (Ventolin HFA) 2 puffs inhalation Q6H PRN alprazolam 2 mg PO BID-TID PRN aspirin (Adult Low Dose Aspirin) 81 mg PO DAILY atomoxetine 25 mg PO QAM atomoxetine 60 mg PO QAM blood sugar diagnostic As directed check blood sugars q.day blood-glucose meter As directed chlorthalidone 25 mg PO DAILY cholecalciferol (vitamin D3) 25 mcg PO DAILY cyanocobalamin (vitamin B-12) 1,000 mcg PO DAILY diphenoxylate-atropine 2.5-0.025 mg tabs PO BID doxazosin 2 mg PO BEDTIME dulaglutide 1.5 mg (0.5 mL) subcut QWEEK 30 days duloxetine 60 mg PO DAILY duloxetine 30 mg PO DAILY eletriptan (Relpax) 40 mg PO .QD PRN empagliflozin 25 mg PO QAM ezetimibe (Zetia) 10 mg PO DAILY 30 days flash glucose scanning reader ([employer] [place] 2 [place]) As directed flash glucose sensor (FreeStyle Mich 2 Sensor kit) As directed hydroxyzine HCl 25 mg PO DAILY hydroxyzine HCl mg PO BEDTIME isosorbide mononitrate ER 30 mg PO DAILY lancets As directed lisinopril 20 mg PO DAILY loperamide 2 mg PO TID metformin ER 1,000 mg PO BID mupirocin 2% 1 appl topical 3XW naloxone 4 mg/actuation (Narcan) 4 mg intranasal Q3M PRN nebivolol 2.5 mg PO DAILY nitroglycerin 0.4 mg PO Every 5 minutes x3; omeprazole mg PO DAILY ondansetron 8 mg PO Q8H PRN oxycodone 15 mg PO Q6H PRN 30 days pen needle, diabetic As directed rosuvastatin 40 mg PO DAILY 30 days simethicone 125 mg PO TID PRN simethicone mg PO DAILY trazodone 50 mg PO BEDTIME PRN Tobacco use date assessed: 10/10/24 Fall risk assessment: 1 Fall in past year Last assessed Fall Risk: 10/10/24 Dental Screening Dental Screen Date: 10/10/24 Did you have a dental visit in the last 12 months?: Yes Did you have a dental problem in the last 6 months where you did not have access to dental care?: No Was dental information given to patient?: Patient has dentist [facility] Medical History Right iliac artery stenosis Osteoarthritis Hypercholesterolemia Coronary artery disease Attention deficit disorder Right radial fracture Pulmonary nodule Diabetic nephropathy Carotid stenosis Anxiety and depression Hypertension Type 2 diabetes mellitus with hyperglycemia Lumbar spondylosis Surgical History History of tooth extraction H/O endarterectomy Amputation toe Family History Father Stroke Mother Pancreatic cancer Son Sleep apnea Social History Housing: House Alcohol intake: current Alcohol intake frequency: holidays/special occasions only Alcohol type: wine Patient Tobacco Use Status: Current everyday Tobacco user Tobacco use type: Cigarette Cigarettes Per Day: 3 e-Cigarette/Vaping Use: Never Used Second Hand Smoke Exposure: Yes service: No Current occupational status: unemployed Cognitive needs: No Hearing needs: No Vision needs: Yes Questionnaire PHQ-9 Over the last 2 weeks, how often have you been bothered by any of the following problems? 1. Little interest or pleasure in doing things: not at all 2. Feeling down, depressed, or hopeless: not at all 3. Trouble falling or staying asleep, or sleeping too much: not at all 4. Feeling tired or having little energy: not at all 5. Poor appetite or overeating: not at all 6. Feeling bad about yourself - or that you are a failure or have let yourself or your family down: not at all 7. Trouble concentrating on things, such as reading the newspaper or watching television: not at all 8. Moving or speaking so slowly that other people could have noticed. Or the opposite - being so fidgety or restless that you have been moving around a lot more than usual: not at all 9. Thoughts that you would be better off or of hurting yourself in some way: not at all Total score: 0 Depression Screening Interpretation: Negative Depression Screening Done: Yes Source: Developed by Drs. George Andrew, Marion Vasques, Milad Goncalves and colleagues, with an educational jaylen from [employer]. Thrive Questionnaire Date Thrive assessed: 09/23/24 I am a: Patient What is your living situation today?: I have a steady place to live Within the past 12 months, did the food you bought not last and you didn't have the money to get more?: Never true Within the past 12 months, did you worry whether your food would run out before you got money to buy more?: Never true Do you have trouble paying for medicines?: No Do you have trouble getting transportation to medical appointments?: No Do you have trouble paying your heating and electricity bill?: No Do you have trouble taking care of your child, family member or friend?: No Do you have trouble with day-to-day activities such as bathing, preparing meals, shopping, managing finances, etc.?: No Are you currently unemployed and looking for a job?: No Are you interested in more education?: No Please select the resources that you would like help with: None Currently or been in a relationship where the following occur: No concerns reported THRIVE Score: 0 AUDIT C Alcohol Use Questionnaire (AUDIT-C) 1. How often do you have a drink containing alcohol?: Monthly or less 2. How many drinks containing alcohol do you have on a typical day when you are drinking?: 1 or 2 3. How often do you have six or more drinks on one occasion?: Never Total Score: 1 PATRIC-7 AMB Questionnaire PATRIC-7 Date PATRIC - 7 assessed: 09/23/24 Feeling nervous, anxious, or on edge: 0 = Not at all Not being able to stop or control worryin = Not at all Worrying too much about different things: 0 = Not at all Trouble relaxin = Not at all Being so restless that it is hard to sit still: 0 = Not at all Becoming easily annoyed or irritable: 0 = Not at all Feeling afraid as if something awful might happen: 0 = Not at all Total PATRIC-7 score (0-4 normal; 5-9 mild; 10-14 moderate; 15-21 severe): 0 Source: Developed by Drs. George Andrew, Marion Vasques, Milad Goncalves and colleagues, with an educational jaylen from [employer]. Physical exam (Primary Care) Vital Signs: Last Vital Signs Temp 97.3 F 10/10/24 11:27 Pulse 93 10/10/24 11:27 BP 130/60 10/10/24 11:27 Pulse Ox 95 10/10/24 11:27 Oxygen Delivery Method Room Air 10/10/24 11:27 BMI result Body Mass Index 19.9 Tobacco/Smoking Status: Tobacco use Status Tobacco use date assessed 10/10/24 10/10/24 11:35 Patient Tobacco Use Status Current everyday Tobacco 10/10/24 11:35 Tobacco use type Cigarette 10/10/24 11:35 e-Cigarette/Vaping Use Never Used 10/10/24 11:35 PHQ-9: PHQ-9 Score PHQ-9: Total score 0 10/10/24 11:35 Depression Screening Interpretation: Negative Thrive Assessment: Date of Thrive Assessment Date Thrive assessed 09/23/24 10/10/24 11:35 Currently or been in a relationship where the following occur: No concerns reported Const General: alert; No acute distress Eyes Conjunctivae: conjunctivae normal Resp Auscultation: clear to auscultation bilaterally Cardio Rate: regular rate Rhythm: regular rhythm GI Inspection: Yes normal to inspection Extrem General: Yes normal to inspection and No edema Coding Level of Care Code Est Pt Level 4 (28632) Complex EM visit Add On G2211 Diagnoses Tobacco abuse Z72.0 Type 2 diabetes mellitus with hyperglycemia, without long-term current use of insulin E11.65 Diabetes mellitus alf insulin use: without alf use Essential hypertension I10 Hypertension type: essential hypertension Hypercholesterolemia E78.00 Coronary artery disease involving [place] coronary artery of [place] heart without angina pectoris I25.10 Coronary Disease-Associated Artery/Lesion type: [place] artery [place] vs. transplanted heart: [place] heart Associated angina: without angina Closed wedge compression fracture of L2 vertebra, sequela S32.020S Encounter type: sequela Lumbar vertebra fracture level: L2 Fracture type: closed Generalized anxiety disorder F41.1 Assessment & Plan Assessment & Plan (1) Tobacco abuse: Comment: still smoking 06/2023 Code(s): Z72.0 - Tobacco use Category: Medical Plan: patient is strongly advised to stop smoking! (2) Type 2 diabetes mellitus with hyperglycemia: Comment: [facility] Code(s): E11.65 - Type 2 diabetes mellitus with hyperglycemia Category: Medical Qualifiers: Diabetes mellitus terminal manager insulin use: without terminal manager use Qualified Code(s): E11.65 - Type 2 diabetes mellitus with hyperglycemia Plan: Decrease the amount of carbohydrate intake, pasta, bread, rice and potatoes are all sugar and that is aside from all the sweet stuff, remember that fruits are good but they are Sweet also. Hemoglobin A1c in September is good 6.2 with Trulicity Jardiance metformin (3) Hypertension: Code(s): I10 - Essential (primary) hypertension Category: Medical Qualifiers: Hypertension type: essential hypertension Qualified Code(s): I10 - Essential (primary) hypertension Plan: Continue with blood pressure medication. Decrease salt intake and exercise on nebivolol lisinopril isosorbide mononitrate (4) Hypercholesterolemia: Code(s): E78.00 - Pure hypercholesterolemia, unspecified Category: Medical Plan: Avoid fried foods, chicken skin, eggs, butter margarine, pastries and meat. Be it pork or beef they have a lot of cholesterol LDL goal of less than 70 and triglyceride of less than One hundred fifty Beatrice last test. (5) Coronary artery disease: Code(s): I25.10 - Atherosclerotic heart disease of [place] coronary artery without angina pectoris Category: Medical Qualifiers: Coronary Disease-Associated Artery/Lesion type: [place] artery [place] vs. transplanted heart: [place] heart Associated angina: without angina Qualified Code(s): I25.10 - Atherosclerotic heart disease of [place] coronary artery without angina pectoris Plan: Control the cholesterol, weight, blood pressure, diabetes on aspirin 81 mg once a day (6) Wedge compression fracture of lumbar vertebra: Comment: May 2022 MR L1 and L2 Code(s): S32.000A - Wedge compression fracture of unspecified lumbar vertebra, initial encounter for closed fracture Category: Medical Qualifiers: Encounter type: sequela Lumbar vertebra fracture level: L2 Fracture type: closed Qualified Code(s): S32.020S - Wedge compression fracture of second lumbar vertebra, sequela Plan: Narcotic pain meds: Is being prescribed with the understanding that these medications are potentially addictive and should be used only when absolutely necessary and must always be secured. Any remaining pills should be safely disposed off appropriately. Patient is advised that narcotics can impaired judgment and one should not drive or operate heavy machinery while taking these medications. Never share these medications with anybody and do not leave them unattended. They will not be replaced under any circumstances. (7) Generalized anxiety disorder: Comment: Bradley Maradiaga seeing Q 2 months Code(s): F41.1 - Generalized anxiety disorder Category: Medical Plan: will be seeing another counsellor and prescriber October 12, 2024 Plan History of Present Illness The patient is a 69-year-old female presenting for a follow-up on chronic management. She has an extensive history of medical conditions, including diabetes mellitus, hypertension, hypercholesterolemia, coronary artery disease with a myocardial infarction in April 2024, and ongoing struggles with opioid dependence from narcotic use for lumbar vertebral compression fracture. Despite advice to stop, she continues smoking. Discussion of her diabetes management highlighted her medication regimen involving Trulicity, Jardiance, and Metformin, with the hemoglobin A1c remaining well-managed at 6.2. Her blood pressure and LDL levels are controlled on the current medications: Nebivolol, Lisinopril, Isosorbide Mononitrate, and daily aspirin. She is dealing with generalized anxiety disorder treated with Xanax and is under anxiety from a pancreatic mass noted but not explained recently. Her last laboratory results in March reflected normal parameters with renal function at 1.12 and appropriate liver function, indicative of effective disease control and medication compliance. Furthermore, the patient is pursuing new appointments with specialists in October and inquired about the potential use of the Dexcom monitoring system, informed of insurance prerequisites given her non-insulin diabetes status. Health Maintenance - Discussed the importance of smoking cessation due to coronary artery disease and other related health impairments. - Encouraged adherence to diabetes management and medication adherence with hemoglobin A1c targets. - Reinforced the significance of ongoing blood pressure and lipid management through medication. - Explained potential challenges with Dexcom usage related to insurance approval without insulin dependency. Social History - The patient is reported as an active smoker, showing nicotine dependence. - Family concerns were noted related to her son?s hospitalization and discharge processes. Review of Systems - Respiratory: Reports continued smoking. - Gastrointestinal: Denies significant issues but notes pancreatic mass. - Endocrine: Reports stable glucose readings with A1c of 6.2. - Psychiatric: Reports anxiety, using Xanax for management. Physical Exam Results - Labs: Normal blood count, normal electrolytes, renal function noted at 1.12, hemoglobin A1c at 6.2, liver function normal, LDL documented at 46 as of March. Plan The plan is to maintain vigilant monitoring of the patient's chronic conditions, with an emphasis on lifestyle adjustments, such as smoking cessation, to mitigate coronary artery risk. Current medication regimens for diabetes and cardiovascular disease will continue, with no changes pending upcoming evaluations with specialists. New technology, such as Dexcom, will be pursued where insurance allows, acknowledging her non-insulin therapy. Continued engagement with mental health services for her generalized anxiety disorder, as well as maintaining alignment with new referrals, will support comprehensive care. Patient was informed and verbally consented to the use of an ambient scribe for clinic note documentation during this visit. Discussion Notes I discussed at length with the patient the existing conditions and management strategies focusing on her chronic illnesses. Emphasized the significance of smoking cessation for her health and outlined the current effective diabetes management marked by satisfactory hemoglobin A1c. We reviewed the potential for various interventions, including Dexcom with insurance stipulations, while ruling out further immediate imaging for her rib status without presence of new concerning symptoms. The patient is informed of her scheduled specialist visits in October, and we concluded with plans to address ongoing generalized anxiety and medication dependencies, ensuring appropriate monitoring aligns with her health trajectory. Patient Instructions - Stop smoking as it contributes to health deterioration and coronary risks. - Continue current medications for diabetes and cardiovascular management. - Keep upcoming appointments with new specialists in October for further evaluation. - Explore Dexcom availability with insurance, acknowledging it may not cover non-insulin users. - Maintain mental health follow-ups for anxiety management. - Consult with specialists regarding the noted pancreatic mass for further investigation. Orders: Referrals Orthopedics Referral S32.020S - Wedge compression fracture of second lumbar vertebra, sequela Medications: New blood-glucose meter,continuous (Dexcom G7 Bread Supervisor) As directed 1 ea 0RF E11.65 - Type 2 diabetes mellitus with hyperglycemia blood-glucose sensor (Dexcom G7 Sensor device) As directed 6 ea 3RF E11.65 - Type 2 diabetes mellitus with hyperglycemia nut.tx.gluc.intol,lac-free,soy (Glucerna oral liquid) 1 ea PO .QD 30 ea 12RF E11.65 - Type 2 diabetes mellitus with hyperglycemia Refilled oxycodone May partial fill 15 mg PO Q6H 30 days PRN 115 tabs 0RF pain M51.36 - Other intervertebral disc degeneration, lumbar region, S32.000A - Wedge compression fracture of unspecified lumbar vertebra, initial encounter for closed fracture lamar Benjamin Q 2 weeks 2 mg PO BID-TID PRN 90 tabs 0RF anxiety F32.9 - Major depressive disorder, single episode, unspecified, F41.9 - Anxiety disorder, unspecified
--- OUTSIDE RECORDS SUMMARY | 2024-10-10 13:05 | XMS_ITS ---
Author Organization [facility] Address [address] [place] [address] Care Team Providers Care [employer] Officer Name Role Phone Diandra Grady Primary Care Provider Unavailabl e Black, Camryn Unavailable [phone] REASON FOR VISIT Pcp ref Encounters Encounter Location Date Provider Diagnosis [facility] [address] [place] [address] 09/06/2024 Camryn Black Plan Of Treatment No Information Progress Notes * FLY, JoJerOB:1955 (69 yo F)Acc No.[id number]:09/06/2024 Patient:?Lena BILL :1955???Age:69 Y???Sex:Female Address:[address] [place] [address] * true * Date:? Generated for Printi sebastien/Fasherrell/eTransmitting on:?10/10/2024 01:05 PM EDT
--- OUTSIDE RECORDS SUMMARY | 2024-10-10 13:05 | XMS_ITS | Clinical Summary ---
Author Organization [facility] Address [address] [place] [id number] Care Team Providers Care Job Lithographer Name Role Phone Unavailable Primary Care Provider [...]
--- OUTSIDE RECORDS SUMMARY | 2024-10-10 13:05 | XMS_ITS | Encounter Summary ---
Author Organization [place] [address] Care Team Providers Care Mucker Cofferdam Name Role Phone Diandra Grady MD Primary Care Provider [phone] Reason for Visit * Reason Onset Date Comments Results 10/07/2024 Encounter Details Date Type Department Care Team (Late st Contact Info) Description 10/07/2024 Telephone Gastroenterology - [address] [place] [address] Rosemary Farmer MA Results Social [...] Progress Notes * Rosemary Farmer MA - 10/07/2024 4:21 PM EDT Pt aware of results below. * Rosemary Farmer MA - 10/07/2024 4:20 PM EDT ----- Message from Sukhjinder Lauren NP sent at 10/07/2024 3:36 PM EDT ----- Regarding: results Please let pt know stool cultures were negative ----- Message ----- From: Lab, Background User Sent: 09/27/2024 3:34 PM EDT To: Eryn Lauren NP documented in this encounter Plan of Treatment Upcoming Encounters Date Type Department Care Team (Late st Contact Info) Description 10/17/2024 2:20 PM EDT Office Visit Gastroenterology - [address] [place] [phone] Eryn Lauren NP [address] [place] [address] 11/09/2024 2:40 PM EDT Office Visit Gastroenterology - [address] [place] [phone] Brandie Bales MD [address] [place] [id number] documented as of this encounter Visit Diagnoses Not on filedocumented in this encounter Care Teams Mucker Cofferdam Relationship Specialty Start Date End Date Diandra Grady MD [address] [place] [address] [address] [facility] [place] [address] PCP - General Internal Medicine 07/15/21 documented as of this encounter
--- OUTSIDE RECORDS SUMMARY | 2024-10-10 13:06 | XMS_ITS | Patient Health Record ---
Author Organization [facility] Address [address] [facility] [place] [address] Care Team Providers Care Ragman Name Role Phone Miguel A, Diandra Primary Care Provider Unavailabl e Black, Camryn Unavailable [phone] Reason For Referral No Information Medications Medication [...] Problem Acquired hammer toe of right foot (2109980163290652 ) Other hammer toe(s) (acquired), right foot (M20.41) Active confirmed Problem Acquired hammer toe of left foot (0300297038892733 ) Other hammer toe(s) (acquired), left foot (M20.42) Active confirmed Problem Polyneuropathy due to type 2 diabetes mellitus (726509337) Type 2 diabetes mellitus with diabetic polyneuropathy (E11.42) Active confirmed Encounters Encounter Location Date Provider Diagnosis [facility] [place] [address] [place] [address] 09/06/2024 Camryn Lazaro Plan Of Treatment Pending Test Test Name Order Date [id number] NAIL, 6 OR MORE 10/09/2015 [id number] NAIL, 6 OR MORE 11/01/2015 10310-[id number] NAIL, 6 OR MORE 01/02/2017 [id number] NAIL, 6 OR MORE 08/10/2017 [id number] NAIL, 1-5 12/25/2015 [id number] NAIL, 1-5 01/09/2016 46638- Debride <25 sq cm 10/09/2015 [id number] SKIN/TISSUE 01/09/2016 [id number] SKIN/TISSUE 11/01/2015 [id number]-[id number] SKIN/TISSUE 11/29/2015 [id number]-ULVIMGL SKIN/TISSUE 12/25/2015 04764-SZRE SKIN LESIONS, OVER 4 01/03/20 17 75711-CDNH SKIN LESIONS, OVER 4 08/10/19 18 83548-LWJF SKIN LESIONS, 2 TO 4 10/09/19 16 Insurance Providers Payer Name Payer Address Payer Phone Subscriber Number Group Number Insured Name Patient Relationship to Insured Coverage Start Date Coverage End Date [employer] Medicare Complete [address] [address] [place] [address] [id number] Lena Bill Self - patient is the insured Medical (General) History Medical History History ICD Code Anxiety Arthritis Cataracts Depression type II diabetes Neuropathy High blood pressure Headaches Psychiatric disorder Back,Hip,and Knee pain Reflux Measles Mumps Chicken pox Surgical History Surgery Date(Month/Year) Stent at [facility] 11-23-2015 Hospitalization History Reason Date(Month/Year) [facility] - stent iliac artery & amputati on of toe 12/2015 [facility] Left Carotid artery 07/21/17
--- OUTSIDE RECORDS SUMMARY | 2024-10-10 13:06 | XMS_ITS | Clinical Summary ---
Author Organization [facility] Address [address] [place] [address] Care Team Providers Care Brazer Assembler Name Role Phone Maren Martel JUDY Primary Care Provider [phone] Source Comments PLEASE NOTE, if this patient [...] Encounters Date Type Department Care Team Description 10/04/2024 3:00 PM EDT Office Visit [address] [phone] Delonte, Maren, DMD Missing teeth, acquired (Primary Dx) 09/27/2024 3:00 PM EDT Office Visit [address] [phone] Delonte, Maren, DMD Missing teeth, acquired (Primary Dx) 09/20/2024 4:20 PM EDT Office Visit [address] [phone] Delonte Maren, DMD Missing teeth, acquired (Primary Dx) 09/13/2024 4:20 PM EST Office Visit [address] [phone] Delonte Maren, DMD Missing teeth, acquired (Primary Dx) 09/02/2024 3:40 PM EST Office Visit [address] [phone] Delonte Maren, DMD Missing teeth, acquired (Primary Dx) 07/29/2024 2:00 PM EST Office Visit [facility] [address] [place] [phone] Yoo-Roa, Marko, DDS Retained tooth root (Primary Dx); Caries 07/29/2024 11:00 AM EST Office Visit [facility] [address] [place] [phone] DelonteMaren, DMD Missing teeth, acquired (Primary Dx) [...] Sign Reading Time Taken Comments Blood Pressure 135/85 10/04/2024 3:02 PM EDT Pulse 70 10/04/2024 3:02 PM EDT Temperature - - Respiratory Rate - - Oxygen Saturation - - Inhaled Oxygen Concentration - - Weight - - Height - - Body Mass Index - - Plan of Treatment Upcoming Encounters Date Type Department Care Team (Late st Contact Info) Description 10/21/2024 4:20 PM EDT Office Visit [facility] [address] [place] [phone] Delonte Maren, DMD [address] [place], [place] [phone] Health Maintenance Due Date Last Done Comments [...] Bone Density Screening 2018 Falls Prevention 2018 Oby-ZPOST-71 ( season) 2024 Imm-Influenza (#1) 2024 06/19/2017, 1 08/17/2016, 04/17/2016, Additional history exists Alcohol and Drug Screen 07/13/2024 Depression Annual Screen 07/13/2024 Dental Examination 06/18/2025 06/16/2024 Hypertension Screening (#1) 10/04/2025 Dental FMX/Pano 06/18/2029 06/16/2024 Procedures Procedure Name Priority Date/Time Associated Diagnosis Comments OFFICE VISIT OBSERVATION NO OTHER SRVC PERFORMED Routine 10/04/2024 3:00 PM EDT Missing teeth, acquired CASE PRESENTATION SUBS DTL & EXTENSIVE TX PLN Routine 09/27/2024 3:00 PM EDT Missing teeth, acquired Max COMPLETE DENTURE - MAXILLARY Routine 09/27/2024 3:00 PM EDT Missing teeth, acquired Todd COMPLETE DENTURE - MANDIBULAR Routine 09/27/2024 3:00 PM EDT Missing teeth, acquired COMPLETE DENTURE - IN PROCESS Routine 09/20/2024 [...] Most Recently Relevant to Health Maintenance Insurance [place] MEDICAID [place]ENT[place] Care Teams Brazer Assembler Relationship Specialty Start Date End Date Maren Martel DMD [address] [place] [address] PCP - General 03/24/19
--- OUTSIDE RECORDS SUMMARY | 2024-10-10 13:06 | XMS_ITS | Clinical Summary ---
Author Organization [facility] 299 [facility] Address [address] [place] [address] Phone Care Team Providers Care General Car Yard Supervisor Name Role Phone Diandra Grady MD Primary Care Provider [phone] Allergies No known active allergies Medications Trulicity [...] Encounters Date Type Department Care Team Description 10/07/2024 Telephone Gastroenterology - [address] [place] [phone] Rosemary Farmer MA Results 09/21/2024 Telephone Gastroenterology - [address] [phone] Carmen Vo MA Results 09/19/2024 10:05 AM EDT Lab Draw Station - [address] [place] [address] [place] [address] Other abnormal tumor markers (Primary Dx) 09/12/2024 Telephone Gastroenterology - [address] [phone] Eryn Lauren, BOWL TOPPER 09/09/2024 Telephone Gastroenterology - [address] [phone] Eryn Lauren, BOWL TOPPER 09/08/2024 3:00 PM EST Office Visit Gastroenterology - [address] [phone] Eryn Lauren, BOWL TOPPER Cystic mass of pancreas (Primary Dx); Diarrhea, unspecified type; Type 1 diabetes mellitus with diabetic autonomic (poly)neuropathy ([facility]) 09/02/2024 Telephone Gastroenterology - [address] [phone] Brandie Bales MD medication question 08/26/2024 Telephone Gastroenterology - [address] [phone] Rosemary Farmer MA Results 08/25/2024 2:40 PM EST Office Visit Gastroenterology - [address] [place] [phone] Eryn Lauren, PAWAN Abnormal CT of the abdomen (Primary Dx); Dyspepsia 07/28/2024 Telephone Gastroenterology - [address] [phone] Bob Lucita [place] 07/22/2024 2:31 PM EST - 07/22/2024 11:59 PM EST Hospital Encounter [facility] Xray [address] [place] [phone] Other constipation Discharge Disposition: Home or Self Care 07/22/2024 1:40 PM EST Office Visit Gastroenterology - [address] [phone] Eryn Lauren NP Gastroesophageal reflux disease, unspecified [...] PM EDT Office Visit Gastroenterology - [address] [phone] Eryn Lauren NP [address] [phone] 11/09/2024 2:40 PM EDT Office Visit Gastroenterology - [address] [phone] Brandie Bales MD [address] [place] [address] Health Maintenance Due Date Last Done Comments [...] Procedure Name Priority Date/Time Associated Diagnosis Comments GASTROINTESTINAL PATHOGENS BY PCR Routine 09/27/2024 12:53 PM EDT Diarrhea, unspecified type Type 1 diabetes mellitus with diabetic autonomic (poly)neuropathy (CMS/HCC) CLOSTRIDIUM DIFFICILE TOXIN Routine 09/27/2024 12:53 PM EDT Diarrhea, unspecified type CANCER ANTIGEN 19-9 Routine 09/19/2024 1 0:18 [...] Recently Relevant to Health Maintenance Results * Gastrointestinal pathogens molecular study (09/27/2024 12:53 PM EDT) Campylobacter Detection by PCR Not Detected Not Detected LAB MICROBIOLOGY METHOD 5 3:57 PM EDT [facility] Plesiomonas shigelloides Detection by PCR Not Detected Not Detected LAB MICROBIOLOGY METHOD 5 3:57 PM EDT [facility] Salmonella Detection by PCR Not Detected Not Detected LAB MICROBIOLOGY METHOD 5 3:57 PM EDT [facility] Vibrio Detection by PCR Not Detected Not Detected LAB MICROBIOLOGY METHOD 5 3:57 PM EDT [facility] Vibrio cholerae Detection by PCR Not Detected Not Detected LAB MICROBIOLOGY METHOD 5 3:57 PM EDT [facility] Yersinia enterocolitica Detection by PCR Not Detected Not Detected LAB MICROBIOLOGY METHOD 5 3:57 PM EDT [facility] Enteroaggregative E coli EAEC Detection by PCR Not Detected Not Detected LAB MICROBIOLOGY METHOD 5 3:57 PM EDT [facility] Enteropathogenic E coli EPEC Detection Not Detected Not Detected LAB MICROBIOLOGY METHOD 5 3:57 PM EDT [facility] Enterotoxigenic E coli ETEC LTST Detection Not Detected Not Detected LAB MICROBIOLOGY METHOD 5 3:57 PM EDT [facility] Shiga-like toxin producing E coli STEC STX1 STX2 Det Not Detected Not Detected LAB MICROBIOLOGY METHOD 5 3:57 PM EDT [facility] Shigella Enteroinvasive E coli EIEC Detection Not Detected Not Detected LAB MICROBIOLOGY METHOD 5 3:57 PM EDT [facility] Cryptosporidium Detection by PCR Not Detected Not Detected LAB MICROBIOLOGY METHOD 5 3:57 PM EDT [facility] Cyclospora cayetanensis Detection by PCR Not Detected Not Detected LAB MICROBIOLOGY METHOD 5 3:57 PM EDT [facility] Entamoeba histolytica Detection by PCR Not Detected Not Detected LAB MICROBIOLOGY METHOD 5 3:57 PM EDT [facility] Giardia lamblia Detection by PCR Not Detected Not Detected LAB MICROBIOLOGY METHOD 5 3:57 PM EDT [facility] Adenovirus F 40 41 Detection by PCR Not Detected Not Detected LAB MICROBIOLOGY METHOD 5 3:57 PM EDT [facility] Astrovirus Detection by PCR Not Detected Not Detected LAB MICROBIOLOGY METHOD 5 3:57 PM EDT [facility] Norovirus GI GII Detection by PCR Not Detected Not Detected LAB MICROBIOLOGY METHOD 5 3:57 PM EDT [facility] Sapovirus Detection by PCR Not Detected Not Detected LAB MICROBIOLOGY METHOD 5 3:57 PM EDT [facility] Rotavirus A Detection by PCR Not Detected Not Detected LAB MICROBIOLOGY METHOD 5 3:57 PM EDT [facility] Stool Rectum structure / Unknown Non-blood Collection / Unknown 09/27/2024 12:53 PM EDT 09/27/2024 2:27 PM EDT Narrative [facility] - 09/27/2024 3:57 PM EDT PCR testing is much more sensitive than traditional techniques and allows for the detection of low numbers of stool pathogens. The clinical correlation of PCR results with the need for treatment and clinical outcomes has not been established. Therefore the results of PCR testing for stool pathogens must be taken into clinical context when making treatment decisions. This is a diagnostic test only, repeat testing for cure is not advised. You may consider infectious disease consult for additional guidance. ??Testing Performed by MULTIPLEXED PCR Eryn Lauren NP LAB MICROBIOLOGY - GENERAL OR DERABLES Final Result [facility] [address] [place] [address], * Clostridium difficile toxin (09/27/2024 12:53 PM EDT) [facility] Clostridium difficile GDH Antigen Negative Negative 09/27/2024 3:34 PM EDT [facility] C difficile Toxins A+B, EIA Negative Negative 09/27/2024 3:34 PM EDT [facility] Comment:NEGATIVE FOR TOXIN P RODUCING CLOSTRIDIOIDES DIFFICILE, NO ADDITIONAL TESTING IS NECESSARY. Stool Rectum structure / Unknown Non-blood Collection / Unknown 09/27/2024 12:53 PM EDT 09/27/2024 2:27 PM EDT Eryn Lauren NP LAB MICROBIOLOGY - GENERAL OR DERABLES Final Result Performing Organization Address City/[facility]/ZIP Co de Phone Number [facility] [address] [place] [address], [place] [phone] * Cancer antigen 19-9 (09/19/2024 10:18 AM EDT) [facility] CA 19-9 34.0 <=35 U/mL 09/21/2024 10:[address] [facility] Comment: The Siemens Advia Centaur CA199 Chemiluminescent Immunoassay is used. Results obtained with different assay methods or kits cannot be used interchangeably. Results cannot be interpreted as absolute evidence of the presence or absence of malignant disease. Test performed at [facility], [address] [place], [place] ??[address] ? [phone] Mojgan Casiano MD, PhD - [employer] Blood Venous blood specimen / Unknown Venipuncture / Unknown 09/19/2024 10:18 AM EDT 09/19/2024 11:39 AM EDT Eryn Lauren NP LAB BLOOD ORDERABLES Final Re sult [facility] [address] [place] [address] * CBC auto differential (08/25/2024 3:19 PM EST) [facility] WBC 9.0 4.8 - 10.8 K/mcL LAB HEMETOLOGY METHOD 08/25/2024 4:05 PM [facility] RBC 4.50 3.80 - 4.80 M/mcL LAB HEMETOLOGY METHOD 08/25/2024 4:05 PM [facility] Hemoglobin 12.9 11.5 - 16.0 g/dL LAB HEMETOLOGY METHOD 08/25/2024 4:05 PM [facility] Hematocrit 40.2 35.0 - 47.0 % LAB HEMETOLOGY METHOD 08/25/2024 4:05 PM [facility] MCV 90.3 79.0 - 98.0 FL LAB HEMETOLOGY METHOD 08/25/2024 4:05 PM [facility] MCH 29.0 27.0 - 32.0 pcg LAB HEMETOLOGY METHOD 08/25/2024 4:05 PM [facility] MCHC 32.1 32.0 - 37.0 g/dL LAB HEMETOLOGY METHOD 08/25/2024 4:05 PM [facility] RDW 12.6 11.0 - 15.0 % LAB HEMETOLOGY METHOD 08/25/2024 4:05 PM [facility] Platelets 346 130 - 400 K/mcL LAB HEMETOLOGY METHOD 08/25/2024 4:05 PM [facility] MPV 9.4 7.0 - 11.0 FL LAB HEMETOLOGY METHOD 08/25/2024 4:05 PM [facility] NRBC 0.0 <1.0 % LAB HEMETOLOGY METHOD 08/25/2024 4:05 PM [facility] NRBC Absolute 0.00 <0.10 K/mcL LAB HEMETOLOGY METHOD 08/25/2024 4:05 PM [facility] Neutrophils Relative 58.4 % LAB HEMETOLOGY METHOD 08/25/2024 4:05 PM [facility] Lymphocytes Relative 33.4 % LAB HEMETOLOGY METHOD 08/25/2024 4:05 PM [facility] Monocytes Relative 5.8 % LAB HEMETOLOGY METHOD 08/25/2024 4:05 PM [facility] Eosinophils Relative 1.7 % LAB HEMETOLOGY METHOD 08/25/2024 4:05 PM [facility] Basophils Relative 0.4 % LAB HEMETOLOGY METHOD 08/25/2024 4:05 PM [facility] Immature Granulocytes Relative 0.3 % LAB HEMETOLOGY METHOD 08/25/2024 4:05 PM [facility] Neutrophils Absolute 5.27 1.50 - 7.00 K/mcL LAB HEMETOLOGY METHOD 08/25/2024 4:05 PM [facility] Lymphocytes Absolute 3.01 1.00 - 5.00 K/mcL LAB HEMETOLOGY METHOD 08/25/2024 4:05 PM [facility] Monocytes Absolute 0.52 0.20 - 1.00 K/mcL LAB HEMETOLOGY METHOD 08/25/2024 4:05 PM [facility] Eosinophils Absolute 0.15 0.00 - 0.50 K/mcL LAB HEMETOLOGY METHOD 08/25/2024 4:05 PM [facility] Basophils Absolute 0.04 0.00 - 0.20 K/mcL LAB HEMETOLOGY METHOD 08/25/2024 4:05 PM [facility] Immature Granulocytes Absolute 0.03 0.00 - 0.03 K/mcL LAB HEMETOLOGY METHOD 08/25/2024 4:05 PM [facility] Blood Venous blood specimen / Unknown Venipuncture / Unknown 08/25/2024 3:19 PM EST 08/25/2024 3:58 PM EST Eryn Lauren BOWL TOPPER LAB BLOOD ORDERABLES Final Re sult Performing Organization Address [facility]/ZIP Co de Phone Number [facility] [address] [place] [address], [place] [phone] * Lipase (08/25/2024 3:19 PM EST) Pathologist [facility] Lipase 41 13 - 75 unit/L LAB CHEMISTRY METHOD 08/25/2024 4:32 PM EST [facility] Blood Venous blood specimen / Unknown Venipuncture / Unknown 08/25/2024 3:19 PM EST 08/25/2024 3:58 PM EST Eryn Lauren BOWL TOPPER LAB BLOOD ORDERABLES Final Re sult Performing Organization Address [facility] Co de Phone Number [facility] [address] [place] [address], [place] [phone] * Amylase (08/25/2024 3:19 PM EST) [facility] Amylase 80 25 - 115 unit/L LAB CHEMISTRY METHOD 08/25/2024 4:32 PM EST [facility] Blood Venous blood specimen / Unknown Venipuncture / Unknown 08/25/2024 3:19 PM EST 08/25/2024 3:58 PM EST Eryn Lauren BOWL TOPPER LAB BLOOD ORDERABLES Final Re sult Performing Organization Address City/[facility]/ZIP Co de Phone Number [facility] [address] [place] [address], [place] [phone] * (ABNORMAL) Comprehensive metabolic panel (08/25/2024 3:19 PM EST) [facility] Sodium 137 133 - 145 mmol/L LAB CHEMISTRY METHOD 08/25/2024 4:32 PM EST [facility] Potassium 4.4 3.5 - 5.5 mmol/L LAB CHEMISTRY METHOD 08/25/2024 4:32 PM [facility] Chloride 103 96 - 110 mmol/L LAB CHEMISTRY METHOD 08/25/2024 4:32 PM [facility] CO2 26 21 - 32 mmol/L LAB CHEMISTRY METHOD 08/25/2024 4:32 PM [facility] Anion Gap 8 3 - 11 LAB CHEMISTRY METHOD 08/25/2024 4:32 PM [facility] Glucose 185(H) 70 - 100 mg/dL LAB CHEMISTRY METHOD 08/25/2024 4:32 PM [facility] BUN 20 5 - 25 mg/dL LAB CHEMISTRY METHOD 08/25/2024 4:32 PM [facility] Creatinine 1.42(H) 0.50 - 1.10 mg/dL LAB CHEMISTRY METHOD 08/25/2024 4:32 PM [facility] eGFR 40(L) >=60 mL/min/1. 73m2 LAB CHEMISTRY METHOD 08/25/2024 4:32 PM [facility] Comment:Calculation based on the??Chronic Kidney Disease Epidemiology Collaboration (CKD-EPI) equation refit??without adjustment for race. BUN/Creatinine Ratio 14.1 LAB CHEMISTRY METHOD 08/25/2024 4:32 PM [facility] Calcium 9.5 8.5 - 10.5 mg/dL LAB CHEMISTRY METHOD 08/25/2024 4:32 PM [facility] AST (SGOT) 20 10 - 42 unit/L LAB CHEMISTRY METHOD 08/25/2024 4:32 PM [facility] ALT (SGPT) 15 10 - 60 unit/L LAB CHEMISTRY METHOD 08/25/2024 4:32 PM [facility] Alkaline Phosphatase 76 42 - 121 unit/L LAB CHEMISTRY METHOD 08/25/2024 4:32 PM [facility] Total Protein 6.8 6.0 - 8.0 g/dL LAB CHEMISTRY METHOD 08/25/2024 4:32 PM EST [facility] Albumin 3.5 3.2 - 5.0 g/dL LAB CHEMISTRY METHOD 08/25/2024 4:32 PM EST [facility] Total Bilirubin 0.3 0.0 - 1.4 mg/dL LAB CHEMISTRY METHOD 08/25/2024 4:32 PM EST [facility] Blood Venous blood specimen / Unknown Venipuncture / Unknown 08/25/2024 3:19 PM EST 08/25/2024 3:58 PM EST us Eryn Lauren BOWL TOPPER LAB BLOOD ORDERABLES Final Re sult [facility] [address] [place] [address], [place] [phone] * XR Abdomen 1 View (07/22/2024 2:44 PM EST) Anatomical Region Laterality Modality Body Radiographic Madonna ging 07/27/2024 8:19 AM EST Impressions 07/27/2024 8:21 AM EST Nonobstructive gas pattern. -------- FINAL REPORT -------- Dictated By: Regan Joe Dictated Date: 07/27/2024 08:19 ET Assigned Physician: Regan Joe Reviewed and Electronically Signed By: Regan Joe Signed Date: 07/27/2024 08:21 ET Workstation ID: [id number] Transcribed By: Self Edit Transcribed Date: 07/27/2024 [...] Signed Date: 07/27/2024 08:21 ET Workstation ID: [id number] Transcribed By: Self Edit Transcribed Date: 07/27/2024 08:19 ET Eryn Lauren BOWL TOPPER IMG XR PROCEDURES Final Resul t * COLONOSCOPY (07/01/2016 9:36 AM EST) Anatomical Region Laterality Modality Endoscopy Historical Provider GI~PROCEDURE ORDERABLES F inal Result from Last 3 Months or Most Recently Relevant to Health Maintenance Insurance [employer] MEDICARE ADVANTAGE MEDICAID - [place] Care Teams General Car Yard Supervisor Relationship Specialty Start Date End Date Diandra Grady MD [address] [place] [address] Dr [address] [facility] [place] [address] PCP - General Internal Medicine 07/15/21
== END 2024-10-10 12:19 | disposition home or self-care (01) ==
LOC: HO.HMCH 11:26
PROVIDERS: PCP Internal Medicine; Visit Provider Internal Medicine
DX: Z72.0 Tobacco use (principal); E11.65 Type 2 diabetes mellitus with hyperglycemia; I10 Essential (primary) hypertension; E78.00 Pure hypercholesterolemia, unspecified; I25.10 Atherosclerotic heart disease of native coronary artery without angina pectoris; S32.020S Wedge compression fracture of second lumbar vertebra, sequela; F41.1 Generalized anxiety disorder

== ENCOUNTER → 2024-10-10 11:26 | Outpatient (BNVA) | payer MEDICARE, MEDICAID, SELFPAY | PROVIDERS: PCP Internal Medicine; Visit Provider Internal Medicine | DX: E11.65 Type 2 diabetes mellitus with hyperglycemia (principal); I10 Essential (primary) hypertension; E78.00 Pure hypercholesterolemia, unspecified; I25.10 Atherosclerotic heart disease of native coronary artery without angina pectoris; F41.1 Generalized anxiety disorder; S32.020S Wedge compression fracture of second lumbar vertebra, sequela; X58.XXXS Exposure to other specified factors, sequela; Z72.0 Tobacco use | CPT/HCPCS: 96127; 99212 ==

== ENCOUNTER 2024-10-17 15:36 | Outpatient (AMB) | payer MEDICARE, MEDICAID, SELFPAY ==
--- NOTE | 2024-10-17 15:54 | MHC.PC.OV ---
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 Required: No Accompanied by: Self / Same As Patient Allergies No Known Allergies Allergy (Verified 10/17/24 15:56) Tobacco use date assessed: 10/17/24 Fall risk assessment: 1 Fall in past year Last assessed Fall Risk: 10/17/24 Dental Screening Dental Screen Date: 10/17/24 Did you have a dental visit in the last 12 months?: Yes Did you have a dental problem in the last 6 months where you did not have access to dental care?: No Was dental information given to patient?: Patient has dentist [facility] Medical History Right iliac artery stenosis Osteoarthritis Hypercholesterolemia Coronary artery disease Attention deficit disorder Right radial fracture Pulmonary nodule Diabetic nephropathy Carotid stenosis Anxiety and depression Hypertension Type 2 diabetes mellitus with hyperglycemia Lumbar spondylosis Surgical History History of tooth extraction H/O endarterectomy Amputation toe Family History Father Stroke Mother Pancreatic cancer Son Sleep apnea Social History Housing: House Alcohol intake: current Alcohol intake frequency: holidays/special occasions only Alcohol type: wine Patient Tobacco Use Status: Current everyday Tobacco user Tobacco use type: Cigarette Cigarettes Per Day: 3 e-Cigarette/Vaping Use: Never Used Second Hand Smoke Exposure: Yes service: No Current occupational status: unemployed Cognitive needs: No Hearing needs: No Vision needs: Yes Questionnaire PHQ-9 Over the last 2 weeks, how often have you been bothered by any of the following problems? 1. Little interest or pleasure in doing things: not at all 2. Feeling down, depressed, or hopeless: not at all 3. Trouble falling or staying asleep, or sleeping too much: not at all 4. Feeling tired or having little energy: not at all 5. Poor appetite or overeating: not at all 6. Feeling bad about yourself - or that you are a failure or have let yourself or your family down: not at all 7. Trouble concentrating on things, such as reading the newspaper or watching television: not at all 8. Moving or speaking so slowly that other people could have noticed. Or the opposite - being so fidgety or restless that you have been moving around a lot more than usual: not at all 9. Thoughts that you would be better off or of hurting yourself in some way: not at all Total score: 0 Depression Screening Interpretation: Negative Depression Screening Done: Yes Source: Developed by Drs. George Andrew, Marion Vasques, Milad Goncalves and colleagues, with an educational jaylen from [employer]. Thrive Questionnaire Date Thrive assessed: 10/17/24 I am a: Patient What is your living situation today?: I have a steady place to live Within the past 12 months, did the food you bought not last and you didn't have the money to get more?: Never true Within the past 12 months, did you worry whether your food would run out before you got money to buy more?: Never true Do you have trouble paying for medicines?: No Do you have trouble getting transportation to medical appointments?: No Do you have trouble paying your heating and electricity bill?: No Do you have trouble taking care of your child, family member or friend?: No Do you have trouble with day-to-day activities such as bathing, preparing meals, shopping, managing finances, etc.?: No Are you currently unemployed and looking for a job?: No Are you interested in more education?: No Please select the resources that you would like help with: None Currently or been in a relationship where the following occur: No concerns reported THRIVE Score: 0 AUDIT C Alcohol Use Questionnaire (AUDIT-C) 1. How often do you have a drink containing alcohol?: Monthly or less 2. How many drinks containing alcohol do you have on a typical day when you are drinking?: 1 or 2 3. How often do you have six or more drinks on one occasion?: Never Total Score: 1 PATRIC-7 AMB Questionnaire PATRIC-7 Date PATRIC - 7 assessed: 10/17/24 Feeling nervous, anxious, or on edge: 0 = Not at all Not being able to stop or control worryin = Not at all Worrying too much about different things: 0 = Not at all Trouble relaxin = Not at all Being so restless that it is hard to sit still: 0 = Not at all Becoming easily annoyed or irritable: 0 = Not at all Feeling afraid as if something awful might happen: 0 = Not at all Total PATRIC-7 score (0-4 normal; 5-9 mild; 10-14 moderate; 15-21 severe): 0 Source: Developed by Drs. George Andrew, Marion Vasques, Milad Goncalves and colleagues, with an educational jaylen from [employer]. Physical exam (Primary Care) Vital Signs: Last Vital Signs Pulse 83 10/17/24 15:55 BP 122/82 10/17/24 15:55 Pulse Ox 96 10/17/24 15:55 Oxygen Delivery Method Room Air 10/17/24 15:55 BMI result Body Mass Index 19.3 Tobacco/Smoking Status: Tobacco use Status Tobacco use date assessed 10/17/24 10/17/24 16:02 Patient Tobacco Use Status Current everyday Tobacco 10/17/24 16:02 Tobacco use type Cigarette 10/17/24 16:02 e-Cigarette/Vaping Use Never Used 10/17/24 16:02 PHQ-9: PHQ-9 Score PHQ-9: Total score 0 10/17/24 16:02 Depression Screening Interpretation: Negative Thrive Assessment: Date of Thrive Assessment Date Thrive assessed 10/17/24 10/17/24 16:02 Currently or been in a relationship where the following occur: No concerns reported Const General: alert; No acute distress Eyes Conjunctivae: conjunctivae normal Resp Auscultation: clear to auscultation bilaterally Cardio Rate: regular rate Rhythm: regular rhythm GI Inspection: Yes normal to inspection Extrem General: Yes normal to inspection and No edema Coding Level of Care Code Est Pt Level 3 (13416) Diagnoses Compression fracture of L2 vertebra, sequela S32.020S Encounter type: sequela Lumbar vertebra fracture level: L2 Assessment & Plan Assessment & Plan (1) Lumbar compression fracture: Comment: MRI 04/2024 mild L1 moderate L2 compression fracture mild progressed degenerative disease lumbar spine moderate right T12-L1 foraminal stenosis progressed moderate right L1-L2 foraminal stenosis Code(s): S32.000A - Wedge compression fracture of unspecified lumbar vertebra, initial encounter for closed fracture Category: Medical Qualifiers: Encounter type: sequela Lumbar vertebra fracture level: L2 Qualified Code(s): S32.020S - Wedge compression fracture of second lumbar vertebra, sequela Plan: Narcotic pain meds: Is being prescribed with the understanding that these medications are potentially addictive and should be used only when absolutely necessary and must always be secured. Any remaining pills should be safely disposed off appropriately. Patient is advised that narcotics can impaired judgment and one should not drive or operate heavy machinery while taking these medications. Never share these medications with anybody and do not leave them unattended. They will not be replaced under any circumstances. Plan History of Present Illness The patient is a 69-year-old female presenting with a follow-up visit for multiple chronic conditions. Her medical history includes Type 2 Diabetes Mellitus, Essential Hypertension, Hypercholesterolemia, and Coronary Artery Disease. She is currently on narcotic pain medications due to a wedge compression fracture of the lumbar vertebrae. A recent visit notes a change, which remains unspecified. The patient has a history of smoking, impacting her cardiovascular health. She requires ongoing management of her conditions, which are chronically managed through medication. The recent change implies possible adjustments needed in her medical or lifestyle management. Health Maintenance Social History - Smoking history noted. Review of Systems Physical Exam Results Plan Continued management of chronic conditions with attention to recent changes. There will be careful monitoring of the current treatment plan's effectiveness, particularly concerning narcotic pain medication for lumbar fracture management. The importance of addressing smoking habits is reiterated to benefit cardiovascular health. Scheduled follow-ups will ensure therapy adjustment, aiming to prevent potential complications. Patient was informed and verbally consented to the use of an ambient scribe for clinic note documentation during this visit. Discussion Notes I engaged with the patient to understand any recent changes in her health status or treatment regimen that could provide insights into her current condition. We discussed the ongoing management of her chronic illnesses, including the need for vigilant monitoring and possible adjustments to her medications. Emphasizing lifestyle modifications such as smoking cessation was discussed to improve her cardiovascular health. I ensured that the patient understood the importance of follow-up appointments for consistent monitoring of her health and treatment effectiveness. Patient Instructions
[2024-10-17 15:55] VITALS: BP 122/82; PULSE 83; O2SAT 96; BMI 19.3
--- OUTSIDE RECORDS SUMMARY | 2024-10-17 18:22 | XMS_ITS | Patient Health Record ---
Author Organization [facility] Address [address] [place] [address] Care Team Providers Care Sap Security Consultant Name Role Phone Miguel A, Diandra Primary Care Provider Unavailabl e Black, Camryn Unavailable [phone] Reason For Referral No Information Medications Medication [...] Problem Acquired hammer toe of right foot (4510020258511633 ) Other hammer toe(s) (acquired), right foot (M20.41) Active confirmed Problem Acquired hammer toe of left foot ([id number] ) Other hammer toe(s) (acquired), left foot (M20.42) Active confirmed Problem Polyneuropathy due to type 2 diabetes mellitus (590472451) Type 2 diabetes mellitus with diabetic polyneuropathy (E11.42) Active confirmed Encounters Encounter Location Date Provider Diagnosis [facility] [place] [address] [place] [address] 09/06/2024 Camryn Lazaro Plan Of Treatment Pending Test Test Name Order Date [id number] NAIL, 6 OR MORE 10/09/2015 [id number] NAIL, 6 OR MORE 11/01/2015 [id number] NAIL, 6 OR MORE 01/02/2017 [id number] NAIL, 6 OR MORE 08/10/2017 [id number] NAIL, 1-5 12/25/2015 [id number] NAIL, 1-5 01/09/2016 26896- Debride <25 sq cm 10/09/2015 [id number] SKIN/TISSUE 01/09/2016 [id number] SKIN/TISSUE 11/01/2015 [id number] SKIN/TISSUE 11/29/2015 [id number] SKIN/TISSUE 12/25/2015 [id number]-[id number] SKIN LESIONS, OVER 4 01/03/20 17 50500-EPFD SKIN LESIONS, OVER 4 08/10/19 18 [id number] SKIN LESIONS, 2 TO 4 10/09/19 16 Insurance Providers Payer Name Payer Address Payer Phone Subscriber Number Group Number Insured Name Patient Relationship to Insured Coverage Start Date Coverage End Date [employer] Medicare Complete [address] [address] [place] [address] [id number] Lena Bill Self - patient is the insured Medical (General) History Medical History History ICD Code Anxiety Arthritis Cataracts Depression type II diabetes Neuropathy High blood pressure Headaches Psychiatric disorder Back,Hip,and Knee pain Reflux Measles Mumps Chicken pox Surgical History Surgery Date(Month/Year) Stent at [facility] 11-23-2015 Hospitalization History Reason Date(Month/Year) [facility] - stent iliac artery & amputati on of toe 12/2015 [facility] Left Carotid artery 07/21/17
--- OUTSIDE RECORDS SUMMARY | 2024-10-17 18:22 | XMS_ITS | Clinical Summary ---
Author Organization [facility] [address] [facility] Address [address] [place] [address] Phone Care Team Providers Care Occupational Therapy Supervisor Name Role Phone Diandra Grady MD Primary Care Provider [phone] Allergies No known active allergies Medications Trulicity [...] Team Description 10/07/2024 Telephone Gastroenterology - [address] [place] [phone] Rosemary Farmer MA Results 09/21/2024 Telephone Gastroenterology - [address] [address] Carmen Vo MA Results 09/19/2024 10:05 AM EDT Lab Draw Station - [address] [place] [address] [place] [address] Other abnormal tumor markers (Primary Dx) 09/12/2024 Telephone Gastroenterology - [address] [phone] Eryn Lauren, REGISTRATION CLERK 09/09/2024 Telephone Gastroenterology - [address] [address] Eryn Lauren, REGISTRATION CLERK 09/08/2024 3:00 PM EST Office Visit Gastroenterology - [address] [address] Eryn Lauren, REGISTRATION CLERK Cystic mass of pancreas (Primary Dx); Diarrhea, unspecified type; Type 1 diabetes mellitus with diabetic autonomic (poly)neuropathy ([facility]) 09/02/2024 Telephone Gastroenterology - [address] [address] Brandie Bales MD medication question 08/26/2024 Telephone Gastroenterology - [address] [address] Rosemary Farmer MA Results 08/25/2024 2:40 PM EST Office Visit Gastroenterology - [address] [place] [phone] Eryn Lauren NP Abnormal CT of the abdomen (Primary Dx); Dyspepsia 07/28/2024 Telephone Gastroenterology - [address] [phone] Lucita Rojas [place] 07/22/2024 2:31 PM EST - 07/22/2024 11:59 PM EST Hospital Encounter [facility] Xray [address] [place] [address] Other constipation Discharge Disposition: Home or Self Care 07/22/2024 1:40 PM EST Office Visit Gastroenterology - [address] [phone] Eryn Lauren NP Gastroesophageal reflux [...] Care Team (Late st Contact Info) Description 11/09/2024 2:40 PM EDT Office Visit Gastroenterology - [address] [phone] Brandie Bales MD [address] [place] [address] Health Maintenance Due Date Last Done Comments Breast Cancer Screening 1955 Diabetes: Annual Foot Exam 1963 Diabetes: Annual Retina Eye Exam 1965 RSV Immunization Adult Patients (1 - Risk 60-74 years 1-dose series) [...] age to complete this topic Meningococcal B Vaccine Aged Out No l onger eligible based on patient's age to complete [...] LAB MICROBIOLOGY METHOD 5 3:57 PM EDT [facility] Plesiomonas shigelloides Detection by PCR Not Detected Not Detected LAB MICROBIOLOGY METHOD 5 3:57 PM EDT [facility] Salmonella Detection by PCR Not Detected Not Detected LAB MICROBIOLOGY METHOD 5 3:57 PM EDT [facility] Vibrio Detection by PCR Not Detected Not Detected LAB MICROBIOLOGY METHOD 5 3:57 PM EDT [facility] Vibrio cholerae Detection by PCR Not Detected Not Detected LAB MICROBIOLOGY METHOD 5 3:57 PM EDT [facility] Yersinia enterocolitica Detection by PCR Not Detected Not Detected LAB MICROBIOLOGY METHOD 5 3:57 PM EDT [facility] Enteroaggregative E coli EAEC Detection by PCR Not Detected Not Detected LAB MICROBIOLOGY METHOD 5 3:57 PM EDT [facility] Enteropathogenic E coli EPEC Detection Not Detected Not Detected LAB MICROBIOLOGY METHOD 5 3:57 PM EDT [facility] Enterotoxigenic E coli ETEC LTST Detection Not Detected Not Detected LAB MICROBIOLOGY METHOD 5 3:57 PM EDT [facility] Shiga-like toxin producing E coli STEC STX1 STX2 Det Not Detected Not Detected LAB MICROBIOLOGY METHOD 5 3:57 PM EDT [facility] Shigella Enteroinvasive E coli EIEC Detection Not Detected Not Detected LAB MICROBIOLOGY METHOD 5 3:57 PM EDT [facility] Cryptosporidium Detection by PCR Not Detected Not Detected LAB MICROBIOLOGY METHOD 5 3:57 PM EDT [facility] Cyclospora cayetanensis Detection by PCR Not Detected Not Detected LAB MICROBIOLOGY METHOD 5 3:57 PM EDT [facility] Entamoeba histolytica Detection by PCR Not Detected Not Detected LAB MICROBIOLOGY METHOD 5 3:57 PM EDT [facility] Giardia lamblia Detection by PCR Not Detected Not Detected LAB MICROBIOLOGY METHOD 5 3:57 PM EDT [facility] Adenovirus F 40 41 Detection by PCR Not Detected Not Detected LAB MICROBIOLOGY METHOD 5 3:57 PM EDT [facility] Astrovirus Detection by PCR Not Detected Not Detected LAB MICROBIOLOGY METHOD 5 3:57 PM EDT [facility] Norovirus GI GII Detection by PCR Not Detected Not Detected LAB MICROBIOLOGY METHOD 5 3:57 PM EDT [facility] Sapovirus Detection by PCR Not Detected Not Detected LAB MICROBIOLOGY METHOD 5 3:57 PM EDT [facility] Rotavirus A Detection by PCR Not Detected Not Detected LAB MICROBIOLOGY METHOD 5 3:57 PM EDT [facility] Stool Rectum structure / Unknown Non-blood Collection / Unknown 09/27/2024 12:53 PM EDT 09/27/2024 2:27 PM EDT [facility] - 09/27/2024 3:57 PM EDT PCR [...] MICROBIOLOGY - GENERAL OR DERABLES Final Result [facility] [address] [place] [address], * Clostridium difficile toxin (09/27/2024 12:53 PM EDT) Clostridium difficile GDH Antigen Negative Negative 09/27/2024 3:34 PM EDT [facility] C difficile Toxins A+B, EIA Negative Negative 09/27/2024 3:34 PM EDT [facility] Comment:NEGATIVE FOR TOXIN P RODUCING CLOSTRIDIOIDES DIFFICILE, NO ADDITIONAL TESTING IS NECESSARY. Stool Rectum structure / Unknown Non-blood Collection / Unknown 09/27/2024 12:53 PM EDT 09/27/2024 2:27 PM EDT Eryn Lauren NP LAB MICROBIOLOGY - GENERAL OR DERABLES Final Result Performing Organization Address [facility]/ZIP Co de Phone Number [facility] [address] [place] [address], * Cancer antigen 19-9 (09/19/2024 10:18 AM EDT) CA 19-9 34.0 <=35 U/mL 09/21/2024 10:56 AM EDT [facility] Comment: The Siemens Advia Centaur CA199 Chemiluminescent Immunoassay is used. Results obtained with different assay methods or kits cannot be used interchangeably. Results cannot be interpreted as absolute evidence of the presence or absence of malignant disease. Test performed at [facility], [address] [place], [place] ??[address] ? [phone] Mojgan Casiano MD, PhD - Substance Abuse Technician Blood Venous blood specimen / Unknown Venipuncture / Unknown 09/19/2024 10:18 AM EDT 09/19/2024 11:39 AM EDT Eryn Lauren NP LAB BLOOD ORDERABLES Final Re sult Performing Organization Address [facility]/ZIP Co de Phone Number [facility] [address] [place] [address] * CBC auto differential (08/25/2024 3:19 PM EST) WBC 9.0 4.8 - 10.8 K/[facility] LAB HEMETOLOGY METHOD 08/25/2024 4:05 PM EST [facility] RBC 4.50 3.80 - 4.80 M/[facility] LAB HEMETOLOGY METHOD 08/25/2024 4:05 PM EST [facility] Hemoglobin 12.9 11.5 - 16.0 g/dL LAB HEMETOLOGY METHOD 08/25/2024 4:[address] [facility] Hematocrit 40.2 35.0 - 47.0 % LAB HEMETOLOGY METHOD 08/25/2024 4:[address] [facility] MCV 90.3 79.0 - 98.0 FL LAB HEMETOLOGY METHOD 08/25/2024 4:[address] [facility] MCH 29.0 27.0 - 32.0 pcg LAB HEMETOLOGY METHOD 08/25/2024 4:[address] [facility] MCHC 32.1 32.0 - 37.0 g/dL LAB HEMETOLOGY METHOD 08/25/2024 4:[address] [facility] RDW 12.6 11.0 - 15.0 % LAB HEMETOLOGY METHOD 08/25/2024 4:[address] [facility] Platelets 346 130 - 400 K/mcL LAB HEMETOLOGY METHOD 08/25/2024 4:[address] [facility] MPV 9.4 7.0 - 11.0 FL LAB HEMETOLOGY METHOD 08/25/2024 4:[address] [facility] NRBC 0.0 <1.0 % LAB HEMETOLOGY METHOD 08/25/2024 4:[address] [facility] NRBC Absolute 0.00 <0.10 K/mcL LAB HEMETOLOGY METHOD 08/25/2024 4:[address] [facility] Neutrophils Relative 58.4 % LAB HEMETOLOGY METHOD 08/25/2024 4:[address] [facility] Lymphocytes Relative 33.4 % LAB HEMETOLOGY METHOD 08/25/2024 4:[address] [facility] Monocytes Relative 5.8 % LAB HEMETOLOGY METHOD 08/25/2024 4:[address] [facility] Eosinophils Relative 1.7 % LAB HEMETOLOGY METHOD 08/25/2024 4:[address] [facility] Basophils Relative 0.4 % LAB HEMETOLOGY METHOD 08/25/2024 4:[address] [facility] Immature Granulocytes Relative 0.3 % LAB HEMETOLOGY METHOD 08/25/2024 4:[address] [facility] Neutrophils Absolute 5.27 1.50 - 7.00 K/mcL LAB HEMETOLOGY METHOD 08/25/2024 4:[address] [facility] Lymphocytes Absolute 3.01 1.00 - 5.00 K/mcL LAB HEMETOLOGY METHOD 08/25/2024 4:[address] [facility] Monocytes Absolute 0.52 0.20 - 1.00 K/mcL LAB HEMETOLOGY METHOD 08/25/2024 4:[address] [facility] Eosinophils Absolute 0.15 0.00 - 0.50 K/mcL LAB HEMETOLOGY METHOD 08/25/2024 4:[address] [facility] Basophils Absolute 0.04 0.00 - 0.20 K/mcL LAB HEMETOLOGY METHOD 08/25/2024 4:[address] [facility] Immature Granulocytes Absolute 0.03 0.00 - 0.03 K/mcL LAB HEMETOLOGY METHOD 08/25/2024 4:[address] [facility] Blood Venous blood specimen / Unknown Venipuncture / Unknown 08/25/2024 3:19 PM EST 08/25/2024 3:58 PM EST us Eryn Lauren NP LAB BLOOD ORDERABLES Final Re sult [facility] [address] [place] [address], * Lipase (08/25/2024 3:19 PM EST) Lipase 41 13 - 75 unit/L LAB CHEMISTRY METHOD 08/25/2024 4:32 PM EST [facility] Blood Venous blood specimen / Unknown Venipuncture / Unknown 08/25/2024 3:19 PM EST 08/25/2024 3:58 PM EST Eryn Lauren REGISTRATION CLERK LAB BLOOD ORDERABLES Final Re sult Performing Organization Address [facility]/ZIP Co de Phone Number [facility] [address] [place] [address], [place] [phone] * Amylase (08/25/2024 3:19 PM EST) [facility] Amylase 80 25 - 115 unit/L LAB CHEMISTRY METHOD 08/25/2024 4:32 PM EST [facility] Blood Venous blood specimen / Unknown Venipuncture / Unknown 08/25/2024 3:19 PM EST 08/25/2024 3:58 PM EST Eryn Lauren REGISTRATION CLERK LAB BLOOD ORDERABLES Final Re sult Performing Organization Address [facility] de Phone Number [facility] [address] [place] [address], [place] [phone] * (ABNORMAL) Comprehensive metabolic panel (08/25/2024 3:19 PM EST) [facility] Sodium 137 133 - 145 mmol/L LAB CHEMISTRY METHOD 08/25/2024 4:[address] [facility] Potassium 4.4 3.5 - 5.5 mmol/L LAB CHEMISTRY METHOD 08/25/2024 4:[address] [facility] Chloride 103 96 - 110 mmol/L LAB CHEMISTRY METHOD 08/25/2024 4:[address] [facility] CO2 26 21 - 32 mmol/L LAB CHEMISTRY METHOD 08/25/2024 4:[address] [facility] Anion Gap 8 3 - 11 LAB CHEMISTRY METHOD 08/25/2024 4:[address] [facility] Glucose 185(H) 70 - 100 mg/dL LAB CHEMISTRY METHOD 08/25/2024 4:[address] [facility] BUN 20 5 - 25 mg/dL LAB CHEMISTRY METHOD 08/25/2024 4:[address] [facility] Creatinine 1.42(H) 0.50 - 1.10 mg/dL LAB CHEMISTRY METHOD 08/25/2024 4:[address] [facility] eGFR 40(L) >=60 mL/min/1. 73m2 LAB CHEMISTRY METHOD 08/25/2024 4:[address] [facility] Comment:Calculation based on the??Chronic Kidney Disease Epidemiology Collaboration (CKD-EPI) equation refit??without adjustment for race. BUN/Creatinine Ratio 14.1 LAB CHEMISTRY METHOD 08/25/2024 4:[address] [facility] Calcium 9.5 8.5 - 10.5 mg/dL LAB CHEMISTRY METHOD 08/25/2024 4:[address] [facility] AST (SGOT) 20 10 - 42 unit/L LAB CHEMISTRY METHOD 08/25/2024 4:[address] [facility] ALT (SGPT) 15 10 - 60 unit/L LAB CHEMISTRY METHOD 08/25/2024 4:[address] [facility] Alkaline Phosphatase 76 42 - 121 unit/L LAB CHEMISTRY METHOD 08/25/2024 4:[address] [facility] Total Protein 6.8 6.0 - 8.0 g/dL LAB CHEMISTRY METHOD 08/25/2024 4:[address] [facility] Albumin 3.5 3.2 - 5.0 g/dL LAB CHEMISTRY METHOD 08/25/2024 4:[address] [facility] Total Bilirubin 0.3 0.0 - 1.4 mg/dL LAB CHEMISTRY METHOD 08/25/2024 4:32 PM EST [facility] Blood Venous blood specimen / Unknown Venipuncture / Unknown 08/25/2024 3:19 PM EST 08/25/2024 3:58 PM EST us Eryn Duglas Lauren REGISTRATION CLERK LAB BLOOD ORDERABLES Final Re sult [facility] [address] [place] [address], [place] [phone] * XR Abdomen 1 View (07/22/2024 2:44 PM EST) Anatomical Region Laterality Modality Body Radiographic Madonna ging 07/27/2024 8:19 AM EST Impressions 07/27/2024 8:21 AM EST Nonobstructive gas pattern. -------- FINAL REPORT -------- Dictated By: Regan Joe Dictated Date: 07/27/2024 08:19 ET Assigned Physician: Regan Joe Reviewed and Electronically Signed By: Regan Joe Signed Date: 07/27/2024 08:21 ET Workstation ID: [id number] Transcribed By: Self Edit Transcribed Date: 07/27/2024 [...] Signed Date: 07/27/2024 08:21 ET Workstation ID: [id number] Transcribed By: Self Edit Transcribed Date: 07/27/2024 08:19 ET Eryn Lauren REGISTRATION CLERK IMG XR PROCEDURES Final Resul t * COLONOSCOPY (07/01/2016 9:36 AM EST) Anatomical Region Laterality Modality Endoscopy Historical Provider GI~PROCEDURE ORDERABLES F inal Result from Last 3 Months or Most Recently Relevant to Health Maintenance Insurance [employer] MEDICARE ADVANTAGE MEDICAID - [place] Care Teams Occupational Therapy Supervisor Relationship Specialty Start Date End Date Diandra Grady MD [address] [place] [address] [address] [facility] [place] [address] PCP - General Internal Medicine 07/15/21
--- OUTSIDE RECORDS SUMMARY | 2024-10-17 18:22 | XMS_ITS ---
Author Organization [facility] Address [address] [facility] [place] [address] Care Team Providers Care Manager Party Name Role Phone Diandra Grady Primary Care Provider Unavailabl e Black, Camryn Unavailable [phone] REASON FOR VISIT Pcp ref Encounters Encounter Location Date Provider Diagnosis [facility] [address] [place] [address] 09/06/2024 Camryn Black Plan Of Treatment No Information Progress Notes * FLY, JoJerOB:1955 (69 yo F)Acc No.[id number]:09/06/2024 Patient:?Lena BILL :1955???Age:69 Y???Sex:Female Address:[address] [place] [address] * true * Date:? Generated for Matthewi sebastien/Deny/eTransmitting on:?10/17/2024 06:21 PM EDT
--- OUTSIDE RECORDS SUMMARY | 2024-10-17 18:22 | XMS_ITS | Clinical Summary ---
Author Organization [facility] Address [address] [place] [address] Care Team Providers Care Cna Instructor Name Role Phone Maren Martel JUDY Primary Care Provider [phone] Source Comments PLEASE NOTE, if this patient [...] Description 10/04/2024 3:00 PM EDT Office Visit [address] [phone] Delonte, Maren, DMD Missing teeth, acquired (Primary Dx) 09/27/2024 3:00 PM EDT Office Visit [address] [phone] Delonte, Maren, DMD Missing teeth, acquired (Primary Dx) 09/20/2024 4:20 PM EDT Office Visit [address] [address] Delonte Maren, DMD Missing teeth, acquired (Primary Dx) 09/13/2024 4:20 PM EST Office Visit [address] [phone] Delonte Maren, DMD Missing teeth, acquired (Primary Dx) 09/02/2024 3:40 PM EST Office Visit [address] [phone] Delonte Maren, DMD Missing teeth, acquired (Primary Dx) 07/29/2024 2:00 PM EST Office Visit [facility] [address] [place] [phone] Yoo-Roa, Marko, DDS Retained tooth root (Primary Dx); Caries 07/29/2024 11:00 AM EST Office Visit [facility] [address] [place] [phone] DelonteMaren, DMD Missing teeth, acquired (Primary Dx) [...] Description 10/21/2024 4:20 PM EDT Office Visit [facility] [address] [place] [phone] Delonte Maren, DMD [address] [place], [place] [phone] Health Maintenance Due Date Last Done Comments [...] Bone Density Screening 2018 Falls Prevention 2018 [id number] ( season) 2024 Imm-Influenza (#1) 2024 06/19/2017, [...] Most Recently Relevant to Health Maintenance [place] Care Teams Cna Instructor Relationship Specialty Start Date End Date Maren Martel DMD [address] [place] [address] PCP - General 03/24/19
--- OUTSIDE RECORDS SUMMARY | 2024-10-17 18:22 | XMS_ITS | Clinical Summary ---
Author Organization [facility] Address [address] [place] [address] Care Team Providers Care County Sheriff Name Role Phone Unavailable Primary Care Provider [...] Diabetes: Visual Foot Exam 08/12/2020 Influenza Vaccine (Season Ended) 2025 Hepatitis B Vaccine Aged Out No longe r eligible based on patient's age to complete this topic Insurance [place]ID [place]
== END 2024-10-17 16:23 | disposition home or self-care (01) ==
LOC: HO.HMCH 15:36
PROVIDERS: PCP Internal Medicine; Visit Provider Internal Medicine
DX: S32.020S Wedge compression fracture of second lumbar vertebra, sequela (principal)

== ENCOUNTER → 2024-10-17 15:36 | Outpatient (BNVA) | payer MEDICARE, MEDICAID, SELFPAY | PROVIDERS: PCP Internal Medicine; Visit Provider Internal Medicine | DX: S32.020S Wedge compression fracture of second lumbar vertebra, sequela (principal); F17.210 Nicotine dependence, cigarettes, uncomplicated; X58.XXXS Exposure to other specified factors, sequela | CPT/HCPCS: 96127; 99212 ==

== ENCOUNTER 2024-12-02 14:38 | Outpatient (AMB) | payer MEDICARE, MEDICAID, SELFPAY ==
--- NOTE | 2024-12-02 14:45 | A.OFFPC_ITS ---
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: No Accompanied by: Self / Same As Patient Allergies No Known Allergies Allergy (Verified 12/02/24 14:50) Medication List - Last Reconciled 12/02/24 by Diandra Grady MD albuterol sulfate 90 mcg/actuation (Ventolin HFA) 2 puffs inhalation Q6H PRN alprazolam 2 mg PO BID-TID PRN aspirin (Adult Low Dose Aspirin) 81 mg PO DAILY atomoxetine 25 mg PO QAM atomoxetine 60 mg PO QAM blood sugar diagnostic As directed check blood sugars q.day blood-glucose meter As directed blood-glucose sensor (ERN G7 Sensor device) As directed blood-glucose,toolmaker,cont (Dexcom G7 Hardness Inspector) As directed chlorthalidone 25 mg PO DAILY cholecalciferol (vitamin D3) 25 mcg PO DAILY cyanocobalamin (vitamin B-12) 1,000 mcg PO DAILY diphenoxylate-atropine 2.5-0.025 mg tabs PO BID doxazosin 2 mg PO BEDTIME dulaglutide 1.5 mg (0.5 mL) subcut QWEEK 30 days duloxetine 60 mg PO DAILY duloxetine 30 mg PO DAILY eletriptan (Relpax) 40 mg PO .QD PRN empagliflozin 25 mg PO QAM ezetimibe (Zetia) 10 mg PO DAILY 30 days flash glucose scanning reader (Novatel WirelessStyle [place] 2 [place]) As directed flash glucose sensor (FreeStyle [place] 2 Sensor kit) As directed hydroxyzine HCl 25 mg PO DAILY hydroxyzine HCl mg PO BEDTIME isosorbide mononitrate ER 30 mg PO DAILY lancets As directed lisinopril 20 mg PO DAILY loperamide 2 mg PO TID metformin ER 1,000 mg PO BID mupirocin 2% 1 appl topical 3XW naloxone 4 mg/actuation (Narcan) 4 mg intranasal Q3M PRN nebivolol 2.5 mg PO DAILY nitroglycerin 0.4 mg PO Every 5 minutes x3; nut.tx.gluc.intol,lac-free,soy (Glucerna oral liquid) 1 ea PO .QD omeprazole mg PO DAILY ondansetron 8 mg PO Q8H PRN oxycodone 15 mg PO Q6H PRN 30 days pen needle, diabetic As directed rosuvastatin 40 mg PO DAILY 30 days simethicone 125 mg PO TID PRN simethicone mg PO DAILY trazodone 50 mg PO BEDTIME PRN Tobacco use date assessed: 10/17/24 Fall risk assessment: No Falls in past year Last assessed Fall Risk: 12/02/24 Dental Screening Dental Screen Date: 10/17/24 Did you have a dental visit in the last 12 months?: Yes Did you have a dental problem in the last 6 months where you did not have access to dental care?: No Was dental information given to patient?: Patient has dentist HPI Med Check HPI Details still having back pain thoracic area- seen PSS- will be rupert abd[facility] [place]. [facility] Medical History Right iliac artery stenosis Osteoarthritis Hypercholesterolemia Coronary artery disease Attention deficit disorder Right radial fracture Pulmonary nodule Diabetic nephropathy Carotid stenosis Anxiety and depression Hypertension Type 2 diabetes mellitus with hyperglycemia Lumbar spondylosis Surgical History History of tooth extraction H/O endarterectomy Amputation toe Family History Father Stroke Mother Pancreatic cancer Son Sleep apnea Social History Housing: House Alcohol intake: current Alcohol intake frequency: holidays/special occasions only Alcohol type: wine Patient Tobacco Use Status: Current everyday Tobacco user Tobacco use type: Cigarette Cigarettes Per Day: 3 e-Cigarette/Vaping Use: Never Used Second Hand Smoke Exposure: Yes service: No Current occupational status: unemployed Cognitive needs: No Hearing needs: No Vision needs: Yes Questionnaire PHQ-9 Over the last 2 weeks, how often have you been bothered by any of the following problems? 1. Little interest or pleasure in doing things: not at all 2. Feeling down, depressed, or hopeless: not at all 3. Trouble falling or staying asleep, or sleeping too much: not at all 4. Feeling tired or having little energy: several days 5. Poor appetite or overeating: not at all 6. Feeling bad about yourself - or that you are a failure or have let yourself or your family down: not at all 7. Trouble concentrating on things, such as reading the newspaper or watching television: not at all 8. Moving or speaking so slowly that other people could have noticed. Or the opposite - being so fidgety or restless that you have been moving around a lot more than usual: not at all 9. Thoughts that you would be better off or of hurting yourself in some way: not at all Total score: 1 11172 - PHQ-9 Billing: Yes Source: Developed by Drs. George Andrew, Marion Vasques, Milad Goncalves and colleagues, with an educational jaylen from [employer]. Thrive Questionnaire Date Thrive assessed: 12/02/24 I am a: Patient What is your living situation today?: I have a steady place to live Within the past 12 months, did the food you bought not last and you didn't have the money to get more?: I choose not to answer this question Within the past 12 months, did you worry whether your food would run out before you got money to buy more?: Never true Do you have trouble paying for medicines?: No Do you have trouble getting transportation to medical appointments?: No Do you have trouble paying your heating and electricity bill?: No Do you have trouble taking care of your child, family member or friend?: No Do you have trouble with day-to-day activities such as bathing, preparing meals, shopping, managing finances, etc.?: No Are you currently unemployed and looking for a job?: Yes Are you interested in more education?: Yes Please select the resources that you would like help with: None Currently or been in a relationship where the following occur: No concerns reported THRIVE Score: 0 AUDIT C Alcohol Use Questionnaire (AUDIT-C) 1. How often do you have a drink containing alcohol?: Never 3. How often do you have six or more drinks on one occasion?: Never Total Score: 0 PATRIC-7 AMB Questionnaire PATRIC-7 Date PATRIC - 7 assessed: 12/02/24 Feeling nervous, anxious, or on edge: 1 = Several days Not being able to stop or control worryin = Not at all Worrying too much about different things: 0 = Not at all Trouble relaxin = Not at all Being so restless that it is hard to sit still: 0 = Not at all Becoming easily annoyed or irritable: 0 = Not at all Feeling afraid as if something awful might happen: 0 = Not at all Total PATRIC-7 score (0-4 normal; 5-9 mild; 10-14 moderate; 15-21 severe): 1 Source: Developed by Drs. George Andrew, Marion Vasques, Milad Goncalves and colleagues, with an educational jaylen from [employer]. PATRIC-7 Assessment Billing PATRIC-7 Assessment Tool: PATRIC-7 Assessment 38165 Physical exam (Primary Care) Vital Signs: Last Vital Signs Temp 97.3 F 12/02/24 14:50 Pulse 96 12/02/24 14:50 BP 114/58 L 12/02/24 14:50 Pulse Ox 95 12/02/24 14:50 Oxygen Delivery Method Room Air 12/02/24 14:50 BMI result Body Mass Index 19.4 Tobacco/Smoking Status: Tobacco use Status Tobacco use date assessed 10/17/24 12/02/24 14:46 Patient Tobacco Use Status Current everyday Tobacco 12/02/24 14:46 Tobacco use type Cigarette 12/02/24 14:46 e-Cigarette/Vaping Use Never Used 12/02/24 14:46 PHQ-9: PHQ-9 Score PHQ-9: Total score 1 12/02/24 15:15 Thrive Assessment: Date of Thrive Assessment Date Thrive assessed 12/02/24 12/02/24 14:52 Currently or been in a relationship where the following occur: No concerns reported Const General: alert; No acute distress Eyes Conjunctivae: conjunctivae normal Resp Auscultation: clear to auscultation bilaterally Cardio Rate: regular rate Rhythm: regular rhythm GI Inspection: Yes normal to inspection Extrem General: Yes normal to inspection and No edema Coding Level of Care Code Est Pt Level 4 (79401) Complex EM visit Add On G2211 Diagnoses Pancreatic mass K86.89 Compression fracture of L2 vertebra, sequela S32.020S Encounter type: sequela Lumbar vertebra fracture level: L2 Coronary artery disease involving [place] coronary artery of [place] heart without angina pectoris I25.10 Associated angina: without angina Coronary Disease-Associated Artery/Lesion type: [place] artery [place] vs. 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: without long-term use Generalized anxiety disorder F41.1 Additional Codes PATRIC-7 Assessment Billing - PATRIC-7 Assessment Tool: PATRIC-7 Assessment 54454 ([id number]) PHQ-9 - 86629 - PHQ-9 Billing: Yes ([id number]) Assessment & Plan Assessment & Plan (1) Pancreatic mass: Comment: StIrene Rodriguez Code(s): K86.89 - Other specified diseases of pancreas Category: Medical Plan: Received gastroenterology notes on planned endoscopic ultrasound of the pancreas (2) Lumbar compression fracture: Comment: MRI 04/2024 mild L1 moderate L2 compression fracture mild progressed degenerative disease lumbar spine moderate right T12-L1 foraminal stenosis progressed moderate right L1-L2 foraminal stenosis Code(s): S32.000A - Wedge compression fracture of unspecified lumbar vertebra, initial encounter for closed fracture Category: Medical Qualifiers: Encounter type: sequela Lumbar vertebra fracture level: L2 Qualified Code(s): S32.020S - Wedge compression fracture of second lumbar vertebra, sequela Plan: Narcotic pain meds: Is being prescribed with the understanding that these medications are potentially addictive and should be used only when absolutely necessary and must always be secured. Any remaining pills should be safely disposed off appropriately. Patient is advised that narcotics can impaired judgment and one should not drive or operate heavy machinery while taking these medications. Never share these medications with anybody and do not leave them unattended. They will not be replaced under any circumstances. (3) Coronary artery disease: Code(s): I25.10 - Atherosclerotic heart disease of [place] coronary artery without angina pectoris Category: Medical Qualifiers: Associated angina: without angina Coronary Disease-Associated Artery/Lesion type: [place] artery [place] vs. transplanted heart: [place] heart Qualified Code(s): I25.10 - Atherosclerotic heart disease of [place] coronary artery without angina pectoris Plan: Control the cholesterol, weight, blood pressure, diabetes on aspirin 81 mg once a day (4) Tobacco abuse: Comment: still smoking 06/2023 Code(s): Z72.0 - Tobacco use Category: Medical Plan: Patient is strongly advised to stop smoking! (5) Hypercholesterolemia: Code(s): E78.00 - Pure hypercholesterolemia, unspecified Category: Medical Plan: Avoid fried foods, chicken skin, eggs, butter margarine, pastries and meat. Be it pork or beef they have a lot of cholesterol LDL goal of less than 70 and t riglyceride of less than 150 March last blood work on Zetia and rosuvastatin 40 mg once a day (6) Hypertension: Code(s): I10 - Essential (primary) hypertension Category: Medical Qualifiers: Hypertension type: essential hypertension Qualified Code(s): I10 - Essential (primary) hypertension Plan: Continue with blood pressure medication. Decrease salt intake and exercise on nebivolol 2.5 mg once a day lisinopril 20 mg once a day (7) Type 2 diabetes mellitus with hyperglycemia: Comment: [facility] doctor Code(s): E11.65 - Type 2 diabetes mellitus with hyperglycemia Category: Medical Qualifiers: Diabetes mellitus long-term insulin use: without long-term use Qualified Code(s): E11.65 - Type 2 diabetes mellitus with hyperglycemia Plan: Decrease the amount of carbohydrate intake, pasta, bread, rice and potatoes are all sugar and that is aside from all the sweet stuff, remember that fruits are good but they are Sweet also. Hemoglobin A1c goal of less than 7.0 patient is on Trulicity 1.5 mg once a week Jardiance 25 mg once a day metformin a 1000 mg twice a day (8) Generalized anxiety disorder: Comment: Bradley Maradiaga seeing Q 2 months Code(s): F41.1 - Generalized anxiety disorder Category: Medical Plan: Continue present medication Plan History of Present Illness The patient is a 69-year-old female presenting for follow-up regarding chronic health conditions, notably Type 2 diabetes mellitus, hypertension, coronary artery disease, and hypercholesterolemia. Her Type 2 diabetes has shown good control with medications including dulaglutide, empagliflozin, and metformin, maintaining a prior HbA1c of 6.2%. Hypertension is managed with nebivolol and lisinopril. Her LDL cholesterol level was last recorded as 46 mg/dL, with goals to keep it under 70 mg/dL. The patient deals with chronic kidney disease demonstrating stable renal function despite proteinuria, and continues to smoke, hinder cessation efforts with tobacco use noted at two to four cigarettes daily. Gastrointestinal complaints include GERD, treated with pantoprazole and IBS managed with loperamide. An endoscopic ultrasound is planned following cardiological clearance due to a known pancreatic cyst. A past history of a lumbar compression fracture has necessitated ongoing narcotic analgesia, leading to opioid dependence. She sustained a rib fracture in April, exacerbating existing right-sided somatic pain. The patient also exhibits generalized anxiety disorder, impacting overall disease management adherence. Health Maintenance - Colonoscopy scheduled with Dr. Monreal. - Mammogram and bone density assessments are due. - Referred to cardiology for clearance before planned pancreatic endoscopic ultrasound. - Last blood work performed on March 24, 2025, indicates well-controlled diabetes, normal liver function, stable renal function, but some proteinuria present. - Scheduled to intensify smoking cessation efforts due to ongoing tobacco use, adverse health implications discussed. - Requires update on vision screening and pending ophthalmologic appointment due to diabetic retinopathy risk. - Needs completion of shingles vaccination series; only one dose of the two-part series administered. Social History - Tobacco use: Smokes two to four cigarettes per day; advised on cessation benefits. - Mobility: Active in managing her chronic pain conditions with recent attempts to explore back bracing for lumbar support. - Attempts a functional lifestyle despite chronic conditions impacting daily activities. - Reports a stable housing situation, without noted concerns about family or financial issues. Review of Systems - Endocrine: Reports stable diabetes with recent HbA1c of 6.2%. - Cardiovascular: Denies chest pain; managed hypertension. - Gastrointestinal: Reports symptoms controlled with current medications. - Musculoskeletal: Reports right side pain and ongoing back pain. - Neurologic: Denies any recent changes in vision or hearing. Physical Exam Results - Labs: Last HbA1c in September was 6.2%. LDL cholesterol level recorded at 46 mg/dL in March. Renal functions stable though with proteinuria. - Tests: Colonoscopy scheduled, mammogram and bone density scanning due, pending completion. - Diagnostics: Planned endoscopic ultrasound for pancreatic cyst post-cardiology evaluation. Plan 1. 0%. The patient is on a regimen of nebivolol and lisinopril to maintain blood pressure control. Coronary artery disease and hypercholesterolemia management are reinforced through continuous medication adherence. The recent laboratory results support the effectiveness of the current therapeutic strategy. Smoking cessation is strongly recommended to lower cardiovascular and overall health risks. The appointment with cardiology is necessary for clearance of the pending procedure on the pancreatic cyst. Pain management strategies, including narcotic medications, continue considering her opioid dependency. Attention to completing health maintenance, including a pending second dose of the shingles vaccine, is recognized.: Patient was informed and verbally consented to the use of an ambient scribe for clinic note documentation during this visit. Discussion Notes I discussed with the patient the continuation of current diabetic, hypertension, and cholesterol management regimens, emphasizing an HbA1c goal of <7.0% and LDL levels below 70 mg/dL. I highlighted the critical need to cease smoking due to its impact on her coronary artery disease. Her forthcoming cardiology follow-up will dictate proceeding with the pancreatic endoscopic ultrasound planned by gastroenterology. We evaluated the benefits and challenges of her existing pain management program, noteworthy due to opioid dependence and recent rib fracture. I advised completing all due screenings and vaccinations, confirming the importance for her chronic condition management. We discussed specifics on the building maintenance repairer appointment, pain management strategies, and the procedural prerequisites, ensuring a comprehensive understanding of the next steps. Patient Instructions - Continue current medications as prescribed. - Attend scheduled cardiology appointment on December 19. - Work on smoking cessation strategies. - Schedule and attend ophthalmology evaluation for diabetic eye screening. - Complete second shingles vaccine and ensure up-to-date vaccinations. - Follow through with scheduled colonoscopy, mammogram, and bone density screening. - Contact for any concerns about worsening symptoms or new health issues. Medications: Refilled oxycodone May partial fill 15 mg PO Q6H PRN 115 tabs 0RF pain 30 days M51.36 - Other intervertebral disc degeneration, lumbar region, S32.000A - Wedge compression fracture of unspecified lumbar vertebra, initial encounter for closed fracture
[2024-12-02 14:50] VITALS: BP 114/58; PULSE 96; TEMP 36.3; O2SAT 95; BMI 19.4
== END 2024-12-02 16:29 | disposition home or self-care (01) ==
LOC: HO.HMCH 14:39
PROVIDERS: PCP Internal Medicine; Visit Provider Internal Medicine
DX: E11.65 Type 2 diabetes mellitus with hyperglycemia (principal); K86.89 Other specified diseases of pancreas; S32.020S Wedge compression fracture of second lumbar vertebra, sequela; I25.10 Atherosclerotic heart disease of native coronary artery without angina pectoris; Z72.0 Tobacco use; E78.00 Pure hypercholesterolemia, unspecified; I10 Essential (primary) hypertension; F41.1 Generalized anxiety disorder

== ENCOUNTER → 2024-12-02 14:38 | Outpatient (BNVA) | payer MEDICARE, MEDICAID, SELFPAY | PROVIDERS: PCP Internal Medicine; Visit Provider Internal Medicine | DX: K86.89 Other specified diseases of pancreas (principal); M51.369 Other intervertebral disc degeneration, lumbar region without mention of lumbar back pain or lower extremity pain; M48.061 Spinal stenosis, lumbar region without neurogenic claudication; S32.020S Wedge compression fracture of second lumbar vertebra, sequela; I25.10 Atherosclerotic heart disease of native coronary artery without angina pectoris; E78.00 Pure hypercholesterolemia, unspecified; I10 Essential (primary) hypertension; E11.65 Type 2 diabetes mellitus with hyperglycemia; F41.1 Generalized anxiety disorder; Z79.82 Long term (current) use of aspirin; Z79.84 Long term (current) use of oral hypoglycemic drugs; Z79.899 Other long term (current) drug therapy; Z72.0 Tobacco use; Z13.30 Encounter for screening examination for mental health and behavioral disorders, unspecified | CPT/HCPCS: 96127; 99212 ==

== ENCOUNTER 2024-12-30 17:16 | Emergency (ER) | payer MEDICARE, MEDICAID, SELFPAY ==
[2024-12-30 17:40] VITALS: BP 97/67; PULSE 106; RESP 18; TEMP 36.6; O2SAT 97; BMI 18.8
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
== END 2024-12-30 18:45 | disposition left against medical advice (07) ==
LOC: HO.ED 18:45
PROVIDERS: Emergency Provider Emergency Medicine; PCP Internal Medicine
DX: G89.29 Other chronic pain (principal); Z79.899 Other long term (current) drug therapy; F17.210 Nicotine dependence, cigarettes, uncomplicated
CPT/HCPCS: 99281

== ENCOUNTER 2025-01-02 13:28 | Outpatient (AMB) | payer MEDICARE, MEDICAID, SELFPAY ==
[2025-01-02 13:32] VITALS: BP 118/64; PULSE 102; TEMP 36.2; O2SAT 97; BMI 18.9
--- NOTE | 2025-01-02 13:32 | MHC.PC.OV ---
Vital Signs 01/02/25 13:32 Height 5 ft 7 in Weight 121 lb BMI 18.9 BP 118/64 Blood Pressure Location Lt brachial Position Sitting Pulse 102 H Pulse Source Pulse Oximeter Temp 97.1 F Temp Source Temporal Artery Scan Pulse Oximetry (%) 97 Oxygen Delivery Method Room Air Intake Visit Reasons: Med Follow Up Accompanied by: Daughter Allergies No Known Allergies Allergy (Verified 01/02/25 13:40) Tobacco use date assessed: 01/02/25 Fall risk assessment: 1 Fall in past year Last assessed Fall Risk: 01/02/25 Dental Screening Dental Screen Date: 01/02/25 Did you have a dental visit in the last 12 months?: Yes Did you have a dental problem in the last 6 months where you did not have access to dental care?: No Was dental information given to patient?: Patient has dentist HPI Med Follow Up HPI Details PRoblem with safety at home . daughter is in the office with her partner. - PAtient state live with son , brittanie and ramirez nephew but ? causing /taking med. [facility] Medical History Right iliac artery stenosis Osteoarthritis Hypercholesterolemia Coronary artery disease Attention deficit disorder Right radial fracture Pulmonary nodule Diabetic nephropathy Carotid stenosis Anxiety and depression Hypertension Type 2 diabetes mellitus with hyperglycemia Lumbar spondylosis Surgical History History of tooth extraction H/O endarterectomy Amputation toe Family History Father Stroke Mother Pancreatic cancer Son Sleep apnea Social History Housing: House Alcohol intake: current Alcohol intake frequency: holidays/special occasions only Alcohol type: wine Patient Tobacco Use Status: Current everyday Tobacco user Tobacco use type: Cigarette Cigarettes Per Day: 3 e-Cigarette/Vaping Use: Never Used Second Hand Smoke Exposure: Yes service: No Current occupational status: unemployed Cognitive needs: No Hearing needs: No Vision needs: Yes Questionnaire PHQ-9 Over the last 2 weeks, how often have you been bothered by any of the following problems? 1. Little interest or pleasure in doing things: not at all 2. Feeling down, depressed, or hopeless: not at all 3. Trouble falling or staying asleep, or sleeping too much: not at all 4. Feeling tired or having little energy: several days 5. Poor appetite or overeating: not at all 6. Feeling bad about yourself - or that you are a failure or have let yourself or your family down: not at all 7. Trouble concentrating on things, such as reading the newspaper or watching television: not at all 8. Moving or speaking so slowly that other people could have noticed. Or the opposite - being so fidgety or restless that you have been moving around a lot more than usual: not at all 9. Thoughts that you would be better off or of hurting yourself in some way: not at all Total score: 1 37624 - PHQ-9 Billing: Yes Source: Developed by Drs. George Andrew, Marion Vasques, Milad Goncalves and colleagues, with an educational jaylen from [employer]. Thrive Questionnaire Date Thrive assessed: 12/02/24 I am a: Patient What is your living situation today?: I have a steady place to live Within the past 12 months, did the food you bought not last and you didn't have the money to get more?: Never true Within the past 12 months, did you worry whether your food would run out before you got money to buy more?: Never true Do you have trouble paying for medicines?: No Do you have trouble getting transportation to medical appointments?: No Do you have trouble paying your heating and electricity bill?: No Do you have trouble taking care of your child, family member or friend?: No Do you have trouble with day-to-day activities such as bathing, preparing meals, shopping, managing finances, etc.?: No Are you currently unemployed and looking for a job?: No Are you interested in more education?: No Please select the resources that you would like help with: None Currently or been in a relationship where the following occur: No concerns reported THRIVE Score: 0 AUDIT C Alcohol Use Questionnaire (AUDIT-C) 1. How often do you have a drink containing alcohol?: Never 3. How often do you have six or more drinks on one occasion?: Never Total Score: 0 PATRIC-7 AMB Questionnaire PATRIC-7 Date PATRIC - 7 assessed: 12/02/24 Feeling nervous, anxious, or on edge: 1 = Several days Not being able to stop or control worryin = Not at all Worrying too much about different things: 0 = Not at all Trouble relaxin = Not at all Being so restless that it is hard to sit still: 0 = Not at all Becoming easily annoyed or irritable: 0 = Not at all Feeling afraid as if something awful might happen: 0 = Not at all Total PATRIC-7 score (0-4 normal; 5-9 mild; 10-14 moderate; 15-21 severe): 1 Source: Developed by Drs. George Andrew, Marion Vasques, Milad Goncalves and colleagues, with an educational jaylen from [employer]. PATRIC-7 Assessment Billing PATRIC-7 Assessment Tool: PATRIC-7 Assessment 90074 Physical exam (Primary Care) Vital Signs: Last Vital Signs Temp 97.1 F 01/02/25 13:32 Pulse 102 H 01/02/25 13:32 BP 118/64 01/02/25 13:32 Pulse Ox 97 01/02/25 13:32 Oxygen Delivery Method Room Air 01/02/25 13:32 BMI result Body Mass Index 18.9 Tobacco/Smoking Status: Tobacco use Status Tobacco use date assessed 01/02/25 01/02/25 13:43 Patient Tobacco Use Status Current everyday Tobacco 01/02/25 13:40 Tobacco use type Cigarette 01/02/25 13:40 e-Cigarette/Vaping Use Never Used 01/02/25 13:40 PHQ-9: PHQ-9 Score PHQ-9: Total score 1 01/02/25 13:46 Thrive Assessment: Date of Thrive Assessment Date Thrive assessed 12/02/24 01/02/25 13:40 Currently or been in a relationship where the following occur: No concerns reported Const General: alert; No acute distress Eyes Conjunctivae: conjunctivae normal Resp Auscultation: clear to auscultation bilaterally Cardio Rate: regular rate Rhythm: regular rhythm GI Inspection: Yes normal to inspection Extrem General: Yes normal to inspection and No edema Results AMB Hemoglobin A1c AMB Hemoglobin A1c 7.2 % Last Edit by Melany Hardin CMA on 01/02/25 13:46 Results Reviewed Results Reviewed: Laboratory Last Values Hgb A1c (Clinic) 7.2 % (4.0-6.0) H 01/02/25 13:45 Coding Level of Care Code Est Pt Level 4 (96640) Diagnoses Type 2 diabetes mellitus with hyperglycemia, without long-term current use of insulin E11.65 Diabetes 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 transplanted heart: [place] heart Generalized anxiety disorder F41.1 Additional Codes PATRIC-7 Assessment Billing - PATRIC-7 Assessment Tool: PATRIC-7 Assessment 80012 ([id number]) PHQ-9 - 99630 - PHQ-9 Billing: Yes ([id number]) Assessment & Plan Assessment & Plan (1) Type 2 diabetes mellitus with hyperglycemia: Comment: [facility] doctor Code(s): E11.65 - Type 2 diabetes mellitus with hyperglycemia Category: Medical Qualifiers: Diabetes mellitus termite control service representative insulin use: without termite control service representative use Qualified Code(s): E11.65 - Type 2 diabetes mellitus with hyperglycemia Plan: Decrease the amount of carbohydrate intake, pasta, bread, rice and potatoes are all sugar and that is aside from all the sweet stuff, remember that fruits are good but they are Sweet also. Hemoglobin A1c goal of less than 6.5 patient on Trulicity at 1.5 mg once a week Jardiance 25 mg once a day metformin a 1000 mg twice a day (2) Wedge compression fracture of lumbar vertebra: Comment: May 2022 MR L1 and L2 Code(s): S32.000A - Wedge compression fracture of unspecified lumbar vertebra, initial encounter for closed fracture Category: Medical Qualifiers: Encounter type: sequela Fracture type: closed Lumbar vertebra fracture level: L2 Qualified Code(s): S32.020S - Wedge compression fracture of second lumbar vertebra, sequela Plan: Narcotic pain meds: Is being prescribed with the understanding that these medications are potentially addictive and should be used only when absolutely necessary and must always be secured. Any remaining pills should be safely disposed off appropriately. Patient is advised that narcotics can impaired judgment and one should not drive or operate heavy machinery while taking these medications. Never share these medications with anybody and do not leave them unattended. They will not be replaced under any circumstances. (3) Tobacco abuse: Comment: still smoking 06/2023 Code(s): Z72.0 - Tobacco use Category: Medical Plan: Patient is strongly advised to stop smoking (4) Coronary artery disease: Code(s): I25.10 - Atherosclerotic heart disease of [place] coronary artery without angina pectoris Category: Medical Qualifiers: Associated angina: without angina Coronary Disease-Associated Artery/Lesion type: [place] artery [place] vs. transplanted heart: [place] heart Qualified Code(s): I25.10 - Atherosclerotic heart disease of [place] coronary artery without angina pectoris Plan: Control the cholesterol, weight, blood pressure, diabetes patient is on aspirin 81 mg once a day (5) Generalized anxiety disorder: Comment: Bradley Maradiaga seeing Q 2 months Code(s): F41.1 - Generalized anxiety disorder Category: Medical Plan: Continue with counseling and therapy Plan History of Present Illness The patient is a 69-year-old female presenting with the management of multiple chronic conditions including diabetes mellitus, coronary artery disease, hypertension, and hypercholesterolemia. Diabetes mellitus has been a long-standing condition, with the last hemoglobin A1c recorded at 6.2 in September, indicating controlled blood glucose levels. The patient is currently on a regimen including Trulicity, Jardiance, and Metformin to manage her diabetes. Coronary artery disease is another significant condition, with the patient on aspirin therapy as part of her management plan. Hypertension and hypercholesterolemia are also being managed, although specific medications were not detailed in the conversation. The patient has a history of generalized anxiety disorder and opioid dependence, which are being addressed through counseling and therapy. A lumbar wedge compression fracture is noted in her medical history, though current management details were not discussed. A pancreatic mass was identified, and the patient was last seen in November for a planned endoscopic ultrasound to further evaluate this finding. Health Maintenance - Smoking cessation strongly advised Social History - Substance Use: The patient is a smoker and has opioid dependence. Review of Systems Physical Exam Results - Labs: Hemoglobin A1c was 6.2 in September. - Labs: Blood sugar was 148 at the last check. - Labs: Normal blood count and electrolytes, stable renal function, and normal liver function with GGT at 46. Plan The management plan for diabetes mellitus includes maintaining a hemoglobin A1c goal of less than 6.5, with the patient continuing on Trulicity, Jardiance, and Metformin. Smoking cessation is strongly advised to reduce cardiovascular risk, given the patient's history of coronary artery disease. The patient is on aspirin therapy for coronary artery disease management. Counseling and therapy are recommended for managing generalized anxiety disorder and opioid dependence. Further evaluation of the pancreatic mass is planned with an endoscopic ultrasound. Patient was informed and verbally consented to the use of an ambient scribe for clinic note documentation during this visit. Discussion Notes During the visit, I discussed the importance of maintaining a hemoglobin A1c goal of less than 6.5 for diabetes management and emphasized the need for smoking cessation to reduce cardiovascular risk. We reviewed the current medication regimen, including Trulicity, Jardiance, and Metformin, and the continuation of aspirin therapy for coronary artery disease. I also recommended ongoing counseling and therapy for generalized anxiety disorder and opioid dependence. The need for further evaluation of the pancreatic mass with an endoscopic ultrasound was reiterated. Patient Instructions - Continue taking Trulicity, Jardiance, and Metformin as prescribed. - Take aspirin daily as directed. - Attend counseling and therapy sessions regularly. - Schedule and attend the endoscopic ultrasound for the pancreatic mass. - Strongly consider quitting smoking to improve overall health. Orders: Orders AMB Hemoglobin A1c Today Z13.9 - Encounter for screening, unspecified Complete Blood Count Auto Diff Today I21.4 - Non-ST elevation (NSTEMI) myocardial infarction Comprehensive Met. Panel Today I21.4 - Non-ST elevation (NSTEMI) myocardial infarction Thyroid Stimulating Hormone Today I21.4 - Non-ST elevation (NSTEMI) myocardial infarction Free T4 (Free Thyroxine) Today I21.4 - Non-ST elevation (NSTEMI) myocardial infarction Vitamin B12 and Folate Today I21.4 - Non-ST elevation (NSTEMI) myocardial infarction UA CC w/rflx Micro + Cult Today I21.4 - Non-ST elevation (NSTEMI) myocardial infarction, R30.0 - Dysuria Medications: Changed From dulaglutide 1.5 mg (0.5 mL) subcut QWEEK 30 days 2.5 mL 2RF E11.65 - Type 2 diabetes mellitus with hyperglycemia To dulaglutide 0.75 mg (0.5 mL) subcut QWEEK 2.5 mL 2RF 30 days E11.65 - Type 2 diabetes mellitus with hyperglycemia Refilled oxycodone May partial fill 15 mg PO Q6H PRN 57 tabs 0RF pain 15 days M51.36 - Other intervertebral disc degeneration, lumbar region, S32.000A - Wedge compression fracture of unspecified lumbar vertebra, initial encounter for closed fracture
--- OUTSIDE RECORDS SUMMARY | 2025-01-02 14:52 | XMS_ITS | Clinical Summary ---
Author Organization [facility] Address [address] [address] Phone Care Team Providers Care Lead Designer Name Role Phone Unavailable Primary Care Provider [...] 1 Active rosuvastatin (CRESTOR) 40 MG tablet 1 Active lisinopril 20 MG tablet Take 20 [...] Colorectal Cancer Screening: Sigmoidoscopy 2002 Pneumococcal Vaccine: 50+ Ye ars (2 of 2 - PCV) 04/17/2017 04/17/2016 Diabetes: Hemoglobin A1C 08/12/2020 Diabetes: Ophthalmology Exam 08/12/2020 Diabetes: Pedal Pulse Checked 08/12/2020 Diabetes: Sensory Foot Exam 08/12/2020 Diabetes: Visual Foot Exam 08/12/2020 Influenza Vaccine (Season Ended) 2025 Pneumococcal Vaccine: Peds ( 0 to 5 Years) and At-Risk Patients (6 to 49 Years) Discontinued 04/17/2016 Hepatitis B Vaccine Aged Out No longe r eligible based on patient's age to complete this topic [place]
== END 2025-01-02 14:29 | disposition home or self-care (01) ==
LOC: HO.HMCH 13:29
PROVIDERS: PCP Internal Medicine; Visit Provider Internal Medicine
DX: E11.65 Type 2 diabetes mellitus with hyperglycemia (principal); S32.020S Wedge compression fracture of second lumbar vertebra, sequela; Z72.0 Tobacco use; I25.10 Atherosclerotic heart disease of native coronary artery without angina pectoris; F41.1 Generalized anxiety disorder; Z13.9 Encounter for screening, unspecified

== ENCOUNTER → 2025-01-02 13:28 | Outpatient (BNVA) | payer MEDICARE, MEDICAID, SELFPAY | PROVIDERS: PCP Internal Medicine; Visit Provider Internal Medicine | DX: E11.65 Type 2 diabetes mellitus with hyperglycemia (principal); I25.10 Atherosclerotic heart disease of native coronary artery without angina pectoris; F41.1 Generalized anxiety disorder; I10 Essential (primary) hypertension; I21.4 Non-ST elevation (NSTEMI) myocardial infarction; R30.0 Dysuria; E78.00 Pure hypercholesterolemia, unspecified; S32.020S Wedge compression fracture of second lumbar vertebra, sequela; X58.XXXS Exposure to other specified factors, sequela; Z72.0 Tobacco use; Z71.89 Other specified counseling | CPT/HCPCS: 83036; 96127; 99212 ==

== ENCOUNTER 2025-02-02 14:07 | Outpatient (AMB) | payer MEDICARE, MEDICAID, SELFPAY ==
[2025-02-02 14:11] VITALS: BP 108/64; PULSE 114; BMI 18.6
--- NOTE | 2025-02-02 14:11 | MHC.OFFVIS ---
Vital Signs 02/02/25 14:11 Height 5 ft 7 in Weight 119 lb 0.794 oz BMI 18.6 BP 108/64 Blood Pressure Location Lt brachial Position Sitting Pulse 114 H Intake Visit Reasons: MEDIA PROMOTER/[place]/Non-ST elevation (NSTEMI) myocardial Intake Note: New patient per patient had cath and saw KM in 2019 feeling good Accounting Machine Operator Required: No Cage Loader: Cage Loader Present Accompanied by: Friend Allergies No Known Allergies Allergy (Verified 01/02/25 13:40) Medication List - Last Reconciled 02/02/25 by Scott Cooper MD albuterol sulfate 90 mcg/actuation (Ventolin HFA) 2 puffs inhalation Q6H PRN alprazolam 2 mg PO BID-TID PRN aspirin (Adult Low Dose Aspirin) 81 mg PO DAILY atomoxetine 25 mg PO QAM atomoxetine 60 mg PO QAM blood sugar diagnostic As directed check blood sugars q.day blood-glucose meter As directed blood-glucose sensor ([employer] G7 Sensor device) As directed blood-glucose,supervisor type photography,cont ([employer] G7 Pruner) As directed chlorthalidone 25 mg PO DAILY diphenoxylate-atropine 2.5-0.025 mg tabs PO BID doxazosin 2 mg PO BEDTIME dulaglutide 0.75 mg (0.5 mL) subcut QWEEK 30 days empagliflozin 25 mg PO QAM ezetimibe (Zetia) 10 mg PO DAILY 30 days flash glucose scanning reader ([employer] Mich 2 [place]) As directed flash glucose sensor (Free[employer] Mich 2 Sensor kit) As directed hydroxyzine HCl 25 mg PO DAILY hydroxyzine HCl mg PO BEDTIME lancets As directed lisinopril 20 mg PO DAILY loperamide 2 mg PO TID metformin ER 1,000 mg (2 x 500 mg) PO BID mupirocin 2% 1 appl topical 3XW naloxone 4 mg/actuation (Narcan) 4 mg intranasal Q3M PRN nitroglycerin 0.4 mg PO Every 5 minutes x3; omeprazole 40 mg PO DAILY ondansetron 8 mg PO Q8H PRN oxycodone 15 mg PO Q6H PRN 15 days pen needle, diabetic As directed rosuvastatin 40 mg PO DAILY 30 days trazodone 50 mg PO BEDTIME PRN HPI Comments Details: Lena was referred here for preoperative cardiovascular risk stratification prior to undergoing endoscopic ultrasound for pancreatic mass. 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 She is a very poor historian does not very aware about her prior medical history in his very forgetful. She says she has poor sleep pattern. She is also not very consistent with her medications and says she has not taken her medications today for unclear reasons. She says she does get elevated heart rate signs when she measures her pulse ox measurements at home. She is not on a beta-ralph therapy at this point time but on multiple antihypertensives which she takes erratically. Also she is not currently taking aspirin. I am not sure if she is even taking his statin and ezetimibe therapy at this point time. Very difficult historian. She is not aware that she has significant peripheral vascular disease and significant coronary artery disease. Unfortunately she continues to smoke. She was recently admitted after fall in [place] and was told that she had a cardiac event. Although she is not further able to elucidate as to what the abnormality was. She has limited functional capacity. She denies any clear symptoms of chest pain at this point time although this is difficult to determine. She also denies any shortness of breath, orthopnea, PND. She denies any palpitations. [facility] Medical History Right iliac artery stenosis Osteoarthritis Hypercholesterolemia Coronary artery disease Attention deficit disorder Right radial fracture Pulmonary nodule Diabetic nephropathy Carotid stenosis Anxiety and depression Hypertension Type 2 diabetes mellitus with hyperglycemia Lumbar spondylosis Surgical History History of tooth extraction H/O endarterectomy Amputation toe Family History Father Stroke Mother Pancreatic cancer Son Sleep apnea Social History Housing: House Alcohol intake: current Alcohol intake frequency: holidays/special occasions only Alcohol type: wine Patient Tobacco Use Status: Current everyday Tobacco user Tobacco use type: Cigarette Cigarettes Per Day: 3 e-Cigarette/Vaping Use: Never Used Second Hand Smoke Exposure: Yes service: No Current occupational status: unemployed Cognitive needs: No Hearing needs: No Vision needs: Yes Review of Systems Const Denies chills, Denies daytime sleepiness, Denies fatigue, Denies fever(s), Denies frequent falls, Denies poor appetite, Denies snoring, Denies stops breathing during sleep, Denies weakness, Denies weight gain and Denies weight loss Eyes Denies loss of vision ENT Denies dizziness and Denies hearing loss Card Denies chest pain, Denies claudication, Denies leg edema, Denies lightheadedness, Denies palpitations, Denies dyspnea, Denies dyspnea on exertion and Denies orthopnea Resp Denies cough, Denies excessive phlegm production, Denies dyspnea, Denies dyspnea on exertion, Denies snoring and Denies wheezing GI Denies abdominal pain, Denies hematochezia, Denies change in bowel habits, Denies nausea and Denies vomiting Denies urinary frequency and Denies dysuria Musc Denies arthralgias, Denies muscle weakness, Denies numbness and Denies other (frequent falls) Skin/Breast Denies nail changes and Denies rash Neuro Denies Abnormal speech present, Denies dizziness, Denies frequent falls, Denies loss of vision, Denies memory loss, Denies numbness and Denies weakness Psych Denies depression and Denies memory loss Endo Denies fatigue and Denies palpitations Jreome/Lymph Reports easy bruising and Reports other (anemia) Aller/Immun Denies wheezing Physical Exam Vital Signs: Last Vital Signs Pulse 114 H 02/02/25 14:11 BP 108/64 02/02/25 14:11 BMI result Body Mass Index 18.6 Const General: cooperative, alert and awake Nutritional Appearance: underweight Orientation/consciousness: patient oriented x3 Limitations: no limitations HEENT Head: Yes normocephalic and Yes atraumatic Neck Neck: Yes trachea midline, Yes supple and Yes no JVD Carotids: bruit Resp Effort & Inspection: normal respiratory effort Auscultation: clear to auscultation bilaterally and diminished lung sounds Cardio Jugular venous distension: no JVD Rate: regular rate Rhythm: regular rhythm Heart sounds: S1 normal heart sound present, S2 normal heart sound present, no click, no gallops, no murmurs and no rubs GI Auscultation: normal bowel sounds Skin General skin exam: no rashes or lesions noted Neuro General: patient oriented x3 and no focal motor deficits Speech: No Abnormal speech present Extrem General: Yes no clubbing, cyanosis or edema Psych Appearance: grossly normal Assessment & Plan Assessment & Plan (1) Preoperative cardiovascular examination: Code(s): Z01.810 - Encounter for preprocedural cardiovascular examination Category: Medical Plan: Preoperative cardiovascular risk stratification this elderly woman with very poor history with limited exercise capacity although and has very sedentary lifestyle with significant coronary artery disease with two-vessel chronic total occlusion with collaterals, although not having current symptoms she had a recent what appears to be NSTEMI after a fall and was admitted and [facility]. Patient is currently not optimized and needs further workup prior to undergoing any procedure that would might require general anesthesia. I would suggest her to undergo echocardiogram to evaluate LV function especially given her prior chronic coronary disease and limited functionality as well as a myocardial perfusion imaging to assess for any significant myocardial ischemia that may determine her risk for anesthesia as her risk of the procedure. This was discussed with her. She is willing to pursue the same. (2) Coronary artery disease: Code(s): I25.10 - Atherosclerotic heart disease of [place] coronary artery without angina pectoris Category: Medical Qualifiers: Coronary Disease-Associated Artery/Lesion type: [place] artery [place] vs. transplanted heart: [place] heart Associated angina: without angina Qualified Code(s): I25.10 - Atherosclerotic heart disease of [place] coronary artery without angina pectoris Plan: CAD with remote history of severe two-vessel coronary artery disease chronic total occlusion with collaterals from the LAD to both anomalous circumflex as well as the RCA. She is currently no symptoms of angina but has markedly limited functional capacity. Unfortunately she is not very compliant with medications. EKG today shows sinus tachycardia with ST T wave changes. She says her heart rate is often elevated. Unclear reason. At this point time decided to stop all her blood pressure lowering medication including lisinopril, alpha channel blockers as well as hydrochlorothiazide she is inconsistently taking them. I have taken the liberty to prescribe metoprolol XL 50 mg daily to reduce her heart rate and reduce myocardial oxygen demand and help with myocardial ischemia. I strongly recommended to restart aspirin therapy. She should also most likely require low-dose anticoagulant therapy given her diffuse and significant peripheral vascular disease. Also recommended to restart her statins and ezetimibe therapy. Advised lipid panel in near future. Workup as above. Complete smoking cessation was advised and she says she is trying and willing to but she has not been able to. Overall prognosis is limited due to her poor compliance with medical therapy and significant and diffuse vascular disease and continued smoking. Follow up in the clinic in 2 weeks time to assess effect of medical therapy. Will follow with her. Thank you for allowing me to partake in her care Orders: Orders CA echo transthoracic complete Today Z01.810 - Encounter for preprocedural cardiovascular examination CA lexiscan stress w curry Today Z01.810 - Encounter for preprocedural cardiovascular examination Lipid Panel Today I25.10 - Atherosclerotic heart disease of [place] coronary artery without angina pectoris Medications: New metoprolol succinate ER (Toprol XL) 50 mg PO DAILY 30 tabs 5RF Discontinued lisinopril Discontinued Reason: Doctor's Order 20 mg PO DAILY 90 tabs 0RF Coding Level of Care Code New Pt Level 4 (40675) Complex EM visit Add On G2211 Diagnoses Preoperative cardiovascular examination Z01.810 Coronary artery disease involving [place] coronary artery of [place] heart without angina pectoris I25.10 Coronary Disease-Associated Artery/Lesion type: [place] artery [place] vs. transplanted heart: [place] heart Associated angina: without angina
--- OUTSIDE RECORDS SUMMARY | 2025-02-02 14:11 | XMS_ITS | Clinical Summary ---
Author Organization [facility] Address [address] [place] [address] Care Team Providers Care Snow Remover Name Role Phone Unavailable Primary Care Provider Unavailabl e Immunizations Immunization Administration Dates Next Due COVID-19, mRNA (Pfizer Pre F all 2022) Monovalent, 30 mcg/0.3 ml 07/03/2021,09/11/2020,08/21/2020 Covid-19, mRNA (Pfizer Comir padmini) Seasonal, 30 mcg/0.3 mL (12+) 2024 Covid-19, mRNA (Pfizer Pre F all 2022) Bivalent, 30 mcg/0.3 ml kathleen-sucrose (12+) dose 06/11/2022 Influenza, Quad, Inactivated , Adjuvanted, Preser Fr 05/06/2022 Influenza,adjuvanted,trivalent,PF (Fluad) 2017 Influenza,high dose seasonal ,trivalent,PF (Fluzone HD) 2024 Influenza,injectable,quad,Prsrv Fr 05/29/2021 MMR 11/16/2018 PCV-20 02/03/2023 PPV23 (Pneumovax) 07/01/2019 Tdap 11/16/2018 Zoster (Shingrix) 03/19/2018 Social History Tobacco Use Types Packs/Day Years Used Date Smoking Tobacco: Never Assessed Comments Unknown Sex and Gender Information Value Date Recorded Sex Assigned at Not on file Legal Sex Female 11:31 AM EST Gender Identity Not on file Sexual Orientation Not on file Plan of Treatment Upcoming Encounters Date Type Department Care Team ([facility] st Contact Info) Description 02/13/2025 2:40 PM EDT Office Visit [facility] [address] [place] [phone] George Montoya, MELO [address] [place] [phone] # DLS 01/02/25 DM nail care- PCP Dr [facility] Health Maintenance Due Date Last Done Comments Hepatitis C Screening 1955 Mammogram/Breast Imaging 1993 Colon Cancer Screening 1998 Bone Density 2018 Zoster (Shingrix) (2 of 2) 05/14/2018 03/19/2018 COVID-19 Vaccine ( season) 2024 2024, 06/11/2022, 07/03/2021, Additional history exists Influenza (#1) 2025 2024, 04/13, 05/29/2021, Additional history exists RSV (1 - 1-dose 75+ series) 2028 DTaP/Tdap/Td (2 - Td or Tdap) 11/16/2028 11/16/2018 Pneumococcal 50+ years Completed 02/03/2023, 2018 HPV Vaccine Aged Out No longer eligi ble based on patient's age to complete this topic Hep A Aged Out No longer eligi ble based on patient's age to complete this topic Hep B Aged Out No longer eligi ble based on patient's age to complete this topic Hib Aged Out No longer eligi ble based on patient's age to complete this topic Meningococcal ACWY Aged Out No longer eligible based on patient's age to complete this topic Pap Smear Discontinued Zoster (Zostavax) Discontinued Insurance [facility] MEDICARE MEDICAID
--- OUTSIDE RECORDS SUMMARY | 2025-02-02 14:11 | XMS_ITS | Clinical Summary ---
Author Organization [facility] [address] [facility] Address [address] [place] [address] Phone Care Team Providers Care Cashiers Bussers Food Runners Name Role Phone Diandra Grady MD Primary Care Provider [phone] Allergies No known active allergies Medications Trulicity [...] lisinopriL (PRINIVIL,ZESTRIL) 20 mg tablet 4 Active metFORMIN XR (GLUCOPHAGE-XR) 500 mg 24 hr tablet 4 Active naloxone (NARCAN) 4 mg/0.1 mL nasal spray 4 Active nitroglycerin (NITROSTAT) 0.4 mg SL tablet 4 Active ondansetron ODT (ZOFRAN-ODT) 8 mg disintegrating tablet 4 Active oxyCODONE (ROXICODONE) 15 mg immediate release tablet 4 Active polyethylene glycol (MIRALAX) 17 gram packet 4 Active promethazine (PHENERGAN) 25 mg tablet 4 Active rosuvastatin (CRESTOR) 40 mg tablet 4 Active simethicone (Mylanta Gas) 125 mg chewable tabletIndications:F latulence/gas pain/belching Chew 1 tablet (125 mg total) 4 (four) times a day (before meals and nightly). 120 tablet 5 07/28/19 26 Active pantoprazole (PROTONIX) 40 mg EC tabletIndications:G astroesophageal reflux disease without esophagitis Take 1 tablet (40 mg total) by mouth 2 (two) times a day before meals. Do not crush, chew, or split. 60 each 5 11/10/19 26 Active loperamide (IMODIUM) 2 mg capsuleIndications: Irritable bowel syndrome with diarrhea Take 2 capsules (4 mg total) by mouth 3 (three) times a day if needed for diarrhea. 180 capsule 5 11/10/19 26 Active simethicone (MYLICON,GAS-X) 180 mg capsuleIndications: Gastroesophageal reflux disease without esophagitis,Irritab le bowel syndrome with diarrhea Take 1 capsule (180 mg total) by mouth 4 (four) times a day if needed for flatulence. 120 capsule 5 Active Active Problems Problem Noted Date Diagnosed Date Primary osteoarthritis 05/23/2024 Other hyperlipidemia 05/23/2024 Coronary artery disease with angina pectoris ([facility] V24) 05/23/2024 ADD (attention deficit disorder) 05/23/2024 Type 2 diabetes mellitus ([facility] V24, [facility] V 28) 05/23/2024 Neuropathy associated with endocrine disorder ([facility] V24) 05/23/2024 Bilateral carotid artery stenosis 05/23/2024 Primary hypertension 05/23/2024 Anxiety 05/23/2024 Depression 05/23/2024 Chronic low back pain 05/23/2024 Encounters Date Type Department Care Team Description 11/10/2024 Telephone Gastroenterology - [place] [address] [place] [address] Goldie Flores MA special procedure 11/09/2024 2:40 PM EDT Office Visit Gastroenterology - [address] [facility] [address] [place] [address] Brandie Bales MD Gastroesophageal reflux disease without esophagitis (Primary Dx); Irritable bowel syndrome with diarrhea; Gastroesophageal reflux disease, unspecified whether esophagitis present; Flatulence/gas pain/belching 11/09/2024 Telephone Gastroenterology - [address] [facility] [address] [place] [address] Eryn Lauren NP from Last 3 Months Surgical History Surgery Date Site/Laterality Comments TOE AMPUTATION CAROTID ENDARTERECTOMY COLONOSCOPY 07/01/2016 nl, tics, hemorrhoids ESOPHAGOGASTRODUODENOSCOPY 07/01/2016 nl CHOLECYSTECTOMY Medical History Medical History Date Comments GERD (gastroesophageal reflux disease) Irritable bowel syndrome with diarrhea HTN (hypertension) Diabetes ([facility] V24, [facility] V28) Hyperlipidemia Chronic back pain PVD (peripheral vascular disease) ([facility] V24) Family History Medical History Relation Name Comments Pancreatic cancer Maternal Grandfather Pancreatic cancer Mother Colon cancer Neg Hx Colon polyps Neg Hx Relation Name Status Comments Maternal Grandfather Mother Social History Tobacco Use Types Packs/Day Years Used Date Smoking Tobacco: Former Cigarettes Smokeless Tobacco: Never Tobacco Cessation:Counseling Given: Not Answered Alcohol Use Standard Drinks/Week Comments Yes 0 (1 standard drink = 0.6 oz pur e alcohol) socially Comments Unknown Sex and Gender Information Value [...] - Inhaled Oxygen Concentration - - Weight 57.6 kg (127 lb) 11/09/2024 2:47 PM EDT Height 167.6 cm (5' 6 ) 11/09/2024 2:47 PM EDT Body Mass Index 20.5 11/09/2024 2:47 PM EDT Plan of Treatment Health Maintenance Due Date Last Done Comments Breast Cancer Screening 1955 Diabetes: Annual Foot Exam 1963 Diabetes: Annual Retina Eye Exam 1963 RSV Immunization Adult Patients (1 - Risk 60-74 years 1-dose series) 2013 Zoster Vaccines (2 of 2) 05/14/2018 03/19/2018 Cholesterol Screening (Lipid Panel) 06/11/2022 Falls Risk Assessment 06/11/2022 Hepatitis C Screening 06/11/2022 Medicare Annual Wellness Visit 06/11/2022 Osteoporosis Screening (Bone Density Screening) 06/11/2022 Social Influencers of Health Screening 06/11/2022 Diabetes: Annual Urine Albumin-Creatinine Ratio (uACR) 05/23/2024 Diabetes: Blood Sugar Control Test (HGBA1C) 05/23/2024 Depression Screening 07/13/2024 COVID-19 Vaccine ( season) 2024 2024, 06/11/2022, 07/03/2021, Additional history exists Influenza Vaccine (#1) 2025 , 05/06/2022, 05/29/2021, Additional history exists Diabetes: Annual GFR (Glomerular Filtration Rate) 08/25/2025 08/25/2024 Hypertension/CHF/CAD Annual BMP Blood Test 08/25/2025 08/25/2024 Colorectal Cancer Screening: Colonoscopy 07/01/2026 07/01/2016 DTaP,Tdap,and Td Vaccines (2 - Td or Tdap) 11/16/2028 11/16/2018 MMR Vaccines Aged Out 11/16/2018 No longer eligi ble based on patient's age to complete this topic Pneumococcal Vaccine: 50+ Years Completed 02/03/2023, 07/01/2019, 02/15/2018, Additional history exists HIB Vaccines Aged Out [...] Procedure Name Priority Date/Time Associated Diagnosis Comments COMPREHENSIVE METABOLIC PANEL Routine 08/25/2024 3:[address] of the abdomen Dyspepsia COLONOSCOPY Routine 07/01/2016 9:36 AM EST from Last 3 Months or Most Recently Relevant to Health Maintenance Results * (ABNORMAL) Comprehensive metabolic panel (08/25/2024 3:19 PM EST) Sodium 137 133 - 145 mmol/L LAB CHEMISTRY METHOD 08/25/2024 4:32 PM [facility] Potassium 4.4 3.5 - 5.5 mmol/L LAB CHEMISTRY METHOD 08/25/2024 4:32 PM [facility] Chloride 103 96 - 110 mmol/L LAB CHEMISTRY METHOD 08/25/2024 4:32 PM [facility] CO2 26 21 - 32 mmol/L LAB CHEMISTRY METHOD 08/25/2024 4:32 PM [facility] Anion Gap 8 3 - 11 LAB CHEMISTRY METHOD 08/25/2024 4:32 PM [facility] Glucose 185(H) 70 - 100 mg/dL LAB CHEMISTRY METHOD 08/25/2024 4:32 PM [facility] BUN 20 5 - 25 mg/dL LAB CHEMISTRY METHOD 08/25/2024 4:32 PM [facility] Creatinine 1.42(H) 0.50 - 1.10 mg/dL LAB CHEMISTRY METHOD 08/25/2024 4:32 PM [facility] eGFR 40(L) >=60 mL/min/1. 73m2 LAB CHEMISTRY METHOD 08/25/2024 4:32 PM [facility] Comment:Calculation based on the Chronic Kidney Disease Epidemiology Collaboration (CKD-EPI) equation refit without adjustment for race. BUN/Creatinine Ratio 14.1 LAB CHEMISTRY METHOD 08/25/2024 4:32 PM [facility] Calcium 9.5 8.5 - 10.5 mg/dL LAB CHEMISTRY METHOD 08/25/2024 4:32 PM [facility] AST (SGOT) 20 10 - 42 unit/L LAB CHEMISTRY METHOD 08/25/2024 4:32 PM [facility] ALT (SGPT) 15 10 - 60 unit/L LAB CHEMISTRY METHOD 08/25/2024 4:32 PM [facility] Alkaline Phosphatase 76 42 - 121 unit/L LAB CHEMISTRY METHOD 08/25/2024 4:32 PM [facility] Total Protein 6.8 6.0 - 8.0 g/dL LAB CHEMISTRY METHOD 08/25/2024 4:32 PM [facility] Albumin 3.5 3.2 - 5.0 g/dL LAB CHEMISTRY METHOD 08/25/2024 4:32 PM [facility] Total Bilirubin 0.3 0.0 - 1.4 mg/dL LAB CHEMISTRY METHOD 08/25/2024 4:32 PM [facility] Blood Venous blood specimen / Unknown Venipuncture / Unknown 08/25/2024 3:19 PM EST 08/25/2024 3:58 PM EST us Eryn Lauren NP LAB BLOOD ORDERABLES Final Re sult [facility] [address] [place] [address], * COLONOSCOPY (07/01/2016 9:36 AM EST) Anatomical Region Laterality Modality Endoscopy us Historical Provider GI~PROCEDURE ORDERABLES F inal Result from Last 3 Months or Most Recently Relevant to Health Maintenance Insurance [employer] MEDICARE ADVANTAGE MEDICAID - [place] Care Teams Cashiers Bussers Food Runners Relationship Specialty Start Date End Date Diandra Grady MD [address] [place] [address] [address] [facility] [place] [address] PCP - General Internal Medicine 07/15/21
--- OUTSIDE RECORDS SUMMARY | 2025-02-02 14:11 | XMS_ITS | Clinical Summary ---
Author Organization [facility] Address [address] [address] Phone Care Team Providers Care Wood Hacker Name Role Phone Unavailable Primary Care Provider [...] times a day Active Chantix Continuing Month Artruo 1 MG tablet Take 1 mg by [...] Visual Foot Exam 08/12/2020 Influenza Vaccine (#1) 2025 Pneumococcal Vaccine: Peds ( 0 to 5 Years) and At-Risk Patients (6 to 49 Years) Discontinued 04/17/2016 Hepatitis B Vaccine Aged Out No longe r eligible based on patient's age to complete this topic [place]
--- OUTSIDE RECORDS SUMMARY | 2025-02-02 14:11 | XMS_ITS | Clinical Summary ---
Author Organization [facility] Address [address] [facility] [place] [address] Care Team Providers Care Hvac Services Professional Name Role Phone Maren Martel DMD Primary Care Provider [phone] Source Comments PLEASE NOTE, if this patient is a minor, it may be UNLAWFUL to discuss sensitive information that is contained in these records (such as FAMILY PLANNING, MENTAL HEALTH or SUBSTANCE ABUSE) with the minor patient's parent or other person without the patient's specific authorization.[facility] Allergies No known active allergies Medications No known medications Active Problems No known active problems Social History Tobacco Use Types Packs/Day Years [...] Mass Index - - Plan of Treatment Health Maintenance Due Date Last Done Comments Dental Perio Charting 1955 Dental Prophy 1953 Hepatitis C Screening 1953 Lipid Screening 1955 Tobacco Cessation Counseling (#1) 1953 Imm-DTaP/Tdap/Td (1 - Tdap) 1972 Breast Cancer Screening (Mammogram) 1993 CT Colonography 1998 Colonoscopy 1998 Colorectal Cancer Screening 1998 FIT/gFOBT 1998 Fecal DNA 1998 Flexible Sigmoidoscopy 1998 Imm-Zoster, Recombinant (1 of 2) 2003 Imm-Pneumococcal 50+ (2 of 2 - PCV) 04/17/2017 04/17/2016 Bone Density Screening 2018 Falls Prevention 2018 [id number] ( season) 2024 Alcohol and Drug Screen 07/13/2024 Depression Annual Screen 07/13/2024 Imm-Influenza (#1) 2025 06/19/2017, 1 08/17/2016, 04/17/2016, Additional history exists Dental Examination 06/18/2025 06/16/2024 Hypertension Screening (#1) 10/04/2025 Dental FMX/Pano 06/18/2029 06/16/2024 Procedures Procedure Name Priority Date/Time Associated Diagnosis Comments PANORAMIC RADIOGRAPHIC IMAGE Routine 06/16/2024 2:20 PM EST Retained tooth root Caries Encounter for dental examination COMP ORAL EVALUATION - NEW/ESTABLISHED PATIENT Routine 06/16/2024 2:20 PM EST Caries Encounter for dental examination from Last 3 Months or Most Recently Relevant to Health Maintenance Insurance [place] MEDICAID DENT[place] Care Teams Hvac Services Professional Relationship Specialty Start Date End Date Maren Martel DMD [address] [place] [address] PCP - General 03/24/19
--- OUTSIDE RECORDS SUMMARY | 2025-02-02 14:11 | XMS_ITS | Clinical Summary ---
Author Organization [facility] Address [address] [address] Phone Care Team Providers Care Milk Vendor Name Role Phone Unavailable Primary Care Provider Unavailabl e Social History Tobacco Use Types Packs/Day Years Used Date Smoking Tobacco: Never Assessed Education Answer Date Recorded Are you interested in more education? Not on rossy e 05/25/2024 Are you concerned about learning? Not on file 05/25/2024 No 05/25/2024 No 05/25/2024 Digital Access Answer Date Recorded No 05/25/2024 No 05/25/2024 Reliable internet access at home? Not on file 05/25/2024 Device with a working camera? Not on file Comments Unknown Sex and Gender Information Value Date Recorded Sex Assigned at Not on file Legal Sex Female 9:58 PM EDT Gender Identity Not on file Sexual Orientation Not on file Plan of Treatment Health Maintenance Due Date Last Done Comments Adult Td,Tdap Booster 1955 LIPID PANEL 1953 DEPRESSION SCREENING 1965 SMOKING Hx and SMOKELESS TOB ACCO SCREENING 1966 HEPATITIS C SCREENING 1971 MAMMOGRAM 1993 COLOGUARD 1998 COLONOSCOPY 1998 COLORECTAL CANCER SCREENING 1998 FIT TEST 1998 FOBT 1998 SIGMOIDOSCOPY 1998 VIRTUAL COLONOSCOPY 1998 PNEUMOCOCCAL VACCINES (50+ y ears) (1 of 1 - PCV) 2003 ZOSTER VACCINES (1 of 2) 2003 OSTEOPOROSIS SCREENING INITI AL (ONE-TIME) 2018 COVID-19 VACCINE ( - 2023-2 5 season) 2024 RSV VACCINE (1 - 1-dose 75+ series) 2028 HEPATITIS A VACCINES Aged Out No long er eligible based on patient's age to complete this topic HIB VACCINES Aged Out No longer eligi ble based on patient's age to complete this topic MENINGOCOCCAL VACCINES (ACWY) Aged Out No longer eligible based on patient's age to complete this topic MENINGOCOCCAL VACCINES (B) Aged Out N o longer eligible based on patient's age to complete this topic Medical Devices Not on file Additional Source Comments The information contained in this document represents components of the legal health record. It is not the complete legal health record[facility]
== END 2025-02-02 14:44 | disposition home or self-care (01) ==
LOC: HO.HCS 14:08
PROVIDERS: PCP Internal Medicine; Visit Provider Internal Medicine Cardiovascular Disease
DX: Z01.810 Encounter for preprocedural cardiovascular examination (principal); I25.10 Atherosclerotic heart disease of native coronary artery without angina pectoris
CPT/HCPCS: 99214; G2211

== ENCOUNTER → 2025-02-02 14:07 | Outpatient (BNVA) | payer MEDICARE, MEDICAID, SELFPAY | PROVIDERS: PCP Internal Medicine; Visit Provider Internal Medicine Cardiovascular Disease | DX: Z01.810 Encounter for preprocedural cardiovascular examination (principal); I25.10 Atherosclerotic heart disease of native coronary artery without angina pectoris; I10 Essential (primary) hypertension; F17.210 Nicotine dependence, cigarettes, uncomplicated | CPT/HCPCS: 93005; 99212 ==

== ENCOUNTER → 2025-03-21 13:58 | Outpatient (REF) | payer MEDICARE, MEDICAID, SELFPAY ==
--- NOTE | 2025-03-21 14:18 | CA_ITS ---
Transthoracic Echocardiogram Patient (Last, First, Middle): Lena Bill H Gender: Female Date of : 1955 Age: 70 Procedure Date: 03/21/2025 Procedure Type: Transthoracic Echocardiogram Location: OP Height: 170.18 cm Weight: 53.52 kg BSA: 1.62 m2 Heart Rate: bpm BP: 100 / 58 mmHg Farm Supervisor: TO Referring MD: Scott Cooper MD Commissary Assistant: Scott Cooper MD Symptoms: Z01.810 - Encounter for preprocedural cardiovascular examination Study Quality: Fair ECG Rhythm: Sinus Conclusions: - 1.Low normal LV ejection fraction 50-55% with impaired relaxation filling pattern 2. Moderately dilated left atrium 3. Possible prior posterior leaflet repair with mild mitral stenosis 4. No gross pericardial effusion Findings Left Ventricle Normal left ventricular cavity size. The left ventricular systolic function is low normal. The visually estimated ejection fraction is between 50-55%. There is paradoxical septal motion consistent with a left bundle branch block. Spectral Doppler is indicative of an impaired relaxation filling pattern. Right Ventricle Normal right ventricular cavity size and systolic function. Atria The left atrium is moderately dilated. Interatrial shunt cannot be excluded. The right atrium is normal in size. Aortic Valve The aortic valve was not well visualized. There is no aortic valve stenosis. There is no aortic valve regurgitation. Mitral Valve There is mild anterior and severe posterior mitral leaflet thickening. The posterior mitral leaflet is immobile. There is severe mitral annular calcification. There is no mitral valve regurgitation. There is mild mitral valve stenosis. Severe thickening of posterior leaflet with immobility may suggest prior repair. Pulmonic Valve The pulmonic valve was not well visualized. Tricuspid Valve The tricuspid valve was not well visualized. Tricuspid regurgitation envelope is inadequate for calculation of right ventricular systolic pressure. Normal right atrial pressure. Great Vessels All visible segments of the aorta are normal in size. The pulmonary artery was not well visualized. There is no dilatation of the ascending aorta measuring 2.80 cm. Venous The inferior vena cava is normal in size and collapses greater than 50% with inspiration. Pericardium/Pleural There is no evidence of pericardial effusion. Prior Study Comparison No significant change compared to prior study dated: 02/26/2022. Measurements 2D Linear Measurements LVOT Diam: 2.20 3.0+(-)1.3 cm 2D Systolic Function EF 4C: 54.90 >55% EF 2C: 47.20 >55% EF BiP: 51.80 >55% Mitral Valve MV VTI: 0.42 MV Pk Yadiel: 2.32 MV Mn Yadiel: 1.59 MV Pk Grad: 22.00 MV Mn Grad: 12.00 E'Lateral: 5.55 E'Medial: 4.24 MVA Continuity: 1.63 Aortic Valve AoV Pk Yadiel: 1.41 AoV Mn Yadiel: 0.96 AoV VTI: 0.26 AoV Pk Grad: 8.00 Aov Mn Grad: 4.00 ROB Cont.VTI: 2.61 LVOT LVOT Pk Yadiel: 0.91 LVOT Mn Yadiel: 0.68 LVOT VTI: 0.18 LVOT Pk Grad: 3.00 LVOT Mn Grad: 2.00 LVOT Diam: 2.20 LVOT Area: 3.80 Diastolic Function E'Medial: 4.24 E' Laterial: 5.55 Right Ventricle TAPSE (mm): 20.80 TVS' Yadiel: 10.60 Tricuspid Valve RA Press: 3.00 Great Vessels Aorta Sinus of Valsalva: 3.03 2.0-3.5 cm Ao Asc: 2.80 2.1-3.4 cm Updated in Other Vendor System with Status of Final Scott Cooper MD electronically signed on 03/22/2025 12:03:56 PM with status of Final
--- OUTSIDE RECORDS SUMMARY | 2025-03-21 16:38 | XMS_ITS | Clinical Summary ---
Author Organization [facility] Address [address] [address] Phone Care Team Providers Care Cut In Station Operator Name Role Phone Unavailable Primary Care Provider [...] Cancer Screening: Sigmoidoscopy 2002 Pneumococcal Vaccine: 50+ Years (2 of 2 - PCV) 04/17/2017 04/17/2016 Diabetes: Hemoglobin A1C 08/12/2020 Diabetes: Ophthalmology Exam 08/12/2020 Diabetes: Pedal Pulse Checked 08/12/2020 Diabetes: Sensory Foot Exam 08/12/2020 Diabetes: Visual Foot Exam 08/12/2020 Influenza Vaccine (#1) 2025 7, 03/28/2015 Pneumococcal Vaccine: Peds ( 0 to 5 Years) and At-Risk Patients (6 to 49 Years) Discontinued 04/17/2016 Hepatitis B Vaccine Aged Out No longe r eligible based on patient's age to complete this topic Insurance Medicaid [place] Aetna MCR Adv PPO ([id number])
--- OUTSIDE RECORDS SUMMARY | 2025-03-21 16:38 | XMS_ITS | Clinical Summary ---
Author Organization [facility] [address] [facility] Address [address] [place] [address] Phone Care Team Providers Care Managing Jeweler Name Role Phone Diandra Grady MD Primary Care Provider [phone] Allergies No known active allergies Medications Trulicity [...] Coronary artery disease with angina pectoris (CM S/[facility] V24) 05/23/2024 ADD (attention deficit disorder) 05/23/2024 Type 2 diabetes mellitus ([facility] V24, [facility] V 28) 05/23/2024 Neuropathy associated with endocrine disorder ([place]/[facility] V24) 05/23/2024 Bilateral carotid artery stenosis 05/23/2024 Primary hypertension 05/23/2024 Anxiety 05/23/2024 Depression 05/23/2024 Chronic low back pain 05/23/2024 Surgical History Surgery Date Site/Laterality Comments TOE AMPUTATION CAROTID ENDARTERECTOMY COLONOSCOPY 07/01/2016 nl, tics, hemorrhoids ESOPHAGOGASTRODUODENOSCOPY 07/01/2016 nl CHOLECYSTECTOMY Medical History Medical History Date Comments GERD (gastroesophageal reflux disease) Irritable bowel syndrome with diarrhea HTN (hypertension) Diabetes ([facility] V24, [facility] V28) Hyperlipidemia Chronic back pain PVD (peripheral vascular disease) ([facility] V24) Family History Medical History Relation Name [...] Depression Screening 07/13/2024 COVID-19 Vaccine ( season) 2025 2024, 06/11/2022, 07/03/2021, Additional history exists Influenza [...] mmol/L LAB CHEMISTRY METHOD 08/25/2024 4:32 PM [facility] Potassium 4.4 3.5 - 5.5 mmol/L LAB CHEMISTRY METHOD 08/25/2024 4:32 PM [facility] Chloride 103 96 - 110 mmol/L LAB CHEMISTRY METHOD 08/25/2024 4:32 PM [facility] CO2 26 21 - 32 mmol/L LAB CHEMISTRY METHOD 08/25/2024 4:32 PM [facility] Anion Gap 8 3 - 11 LAB CHEMISTRY METHOD 08/25/2024 4:32 PM [facility] Glucose 185(H) 70 - 100 mg/dL LAB CHEMISTRY METHOD 08/25/2024 4:32 PM [facility] BUN 20 5 - 25 mg/dL LAB CHEMISTRY METHOD 08/25/2024 4:32 PM [facility] Creatinine 1.42(H) 0.50 - 1.10 mg/dL LAB CHEMISTRY METHOD 08/25/2024 4:32 PM [facility] eGFR 40(L) >=60 mL/min/1. 73m2 LAB CHEMISTRY METHOD 08/25/2024 4:32 PM [facility] Comment:Calculation based on the Chronic Kidney Disease Epidemiology Collaboration (CKD-EPI) equation refit without adjustment for race. BUN/Creatinine Ratio 14.1 LAB CHEMISTRY METHOD 08/25/2024 4:32 PM [facility] Calcium 9.5 8.5 - 10.5 mg/dL LAB CHEMISTRY METHOD 08/25/2024 4:32 PM [facility] AST (SGOT) 20 10 - 42 unit/L LAB CHEMISTRY METHOD 08/25/2024 4:32 PM EST [facility] ALT (SGPT) 15 10 - 60 unit/L LAB CHEMISTRY METHOD 08/25/2024 4:32 PM EST [facility] Alkaline Phosphatase 76 42 - 121 unit/L LAB CHEMISTRY METHOD 08/25/2024 4:32 PM [facility] Total Protein 6.8 6.0 - 8.0 g/dL LAB CHEMISTRY METHOD 08/25/2024 4:32 PM EST [facility] Albumin 3.5 3.2 - 5.0 g/dL LAB CHEMISTRY METHOD 08/25/2024 4:32 PM [facility] Total Bilirubin 0.3 0.0 - 1.4 mg/dL LAB CHEMISTRY METHOD 08/25/2024 4:32 PM [facility] Blood Venous blood specimen / Unknown Venipuncture / Unknown 08/25/2024 3:19 PM EST 08/25/2024 3:58 PM EST Eryn Lauren TOUR PRODUCTION SUPERVISOR LAB BLOOD ORDERABLES Final Re sult [facility] [address] [place] [address], * COLONOSCOPY (07/01/2016 9:36 AM EST) Anatomical Region Laterality Modality Endoscopy Historical Provider GI~PROCEDURE ORDERABLES F inal Result from Last 3 Months or Most Recently Relevant to Health Maintenance Insurance A[employer]NA MEDICARE ADVANTAGE MEDICAID - [place] Care Teams Managing Jeweler Relationship Specialty Start Date End Date Diandra Grady MD [address] [place] [address] [address] [facility] [place] [address] PCP - General Internal Medicine 07/15/21
--- OUTSIDE RECORDS SUMMARY | 2025-03-21 16:38 | XMS_ITS | Patient Health Record ---
Author Organization [facility] Address [address] [place] [address] Care Team Providers Care Pan Pusher Name Role Phone Diandra Grady Primary Care Provider Unavailabl e Black, Camryn Unavailable [phone] Reason For Referral No Information Medications Medication SIG (Take, Route, Frequency, Duration) Notes Start Date End Date Status zzzExtra Depth Orthopedic Shoes (1 Pair) with Customized Heat Molded Multidensity Innersoles (3 Pair) . . . Dx: NIDDM/Polyneuropathy (E11.42), Hammertoe Foot Deformity (M20.41,M20.42), Preulcerative Skin Lesion(s) (L85.1); Duration: . 10/09/2015 Active metFORMIN HCl 1000 MG TK 1 T PO BID Oral ; Duration: 45 Not-Taking Morphine Sulfate ER 60 MG (Schedule II D rug) TAKE 1 TABLET BY MOUTH EVERY 12 HOURS FOR 30 DAYS Oral; Duration: 30 Active zzzCompression Stockings 20-30mm Hg . . .; Duration: . Active Lisinopril-hydroCHLOROthi azide 10-12.5 MG TK 1 T PO ONCE D Oral; Duration: 90 Active Extra Depth Orthopedic Shoes (1 [...] Hammertoe Foot Deformity (M20.41,M20.42), Preulcerative Skin Lesion(s) (L85.1); Duration: . Active Victoza 18 MG/3ML Subcutaneous Active Immunizations Vaccine Route Administration Date Status Comme nts Influenza Unknown 03/28/2015 Administered Influenza Unknown 06/16/2017 Administered Social History Tobacco use other than smoking: Question Answer Notes Are you an other tobacco user? No Problems Problem Type SNOMED Code ICD Code Onset Dates Problem Status W/U Status Risk Notes Problem Acquired hammer toe of right foot (2452019244798737 ) Other hammer toe(s) (acquired), right foot (M20.41) Active confirmed Problem Acquired hammer toe of left foot (8217742369707802 ) Other hammer toe(s) (acquired), left foot (M20.42) Active confirmed Problem Polyneuropathy due to type 2 diabetes mellitus (495840044) Type 2 diabetes mellitus with diabetic polyneuropathy (E11.42) Active confirmed Encounters Encounter Location Date Provider Diagnosis [facility] [address] 09/06/2024 [facility] [address] [address] 10/27/2024 Camryn Lazaro [facility] [address] [address] 02/14/2025 Camryn Lazaro [facility] [address] 03/01/2025 Camryn Lazaro Plan Of Treatment Pending Test Test Name Order Date [id number] NAIL, 6 OR MORE 10/09/2015 [id number] NAIL, 6 OR MORE 11/01/2015 [id number] NAIL, 6 OR MORE 01/02/2017 [id number] NAIL, 6 OR MORE 08/10/2017 [id number] NAIL, 1-5 12/25/2015 [id number] NAIL, 1-5 01/09/2016 00433- Debride <25 sq cm 10/09/2015 [id number] SKIN/TISSUE 01/09/2016 [id number] SKIN/TISSUE 11/01/2015 [id number] SKIN/TISSUE 11/29/2015 [id number] SKIN/TISSUE 12/25/2015 [id number] SKIN LESIONS, OVER 4 01/03/20 17 [id number] SKIN LESIONS, OVER 4 08/10/19 18 [id number] SKIN LESIONS, 2 TO 4 10/09/19 16 Insurance Providers Payer Name Payer Address Payer Phone Subscriber Number Group Number Insured Name Patient Relationship to Insured Coverage Start Date Coverage End Date AARP Medicare Complete [address] [address] [place] [address] [phone] [id number] Lena Bill Self - patient is the insured Medical (General) History Medical History History ICD Code Anxiety Arthritis Cataracts Depression type II diabetes Neuropathy High blood pressure Headaches Psychiatric disorder Back,Hip,and Knee pain Reflux Measles Mumps Chicken pox Surgical History Surgery Date(Month/Year) Stent at [facility] 11-23-2015 Hospitalization History Reason Date(Month/Year) [facility] - stent iliac artery & amputati on of toe 12/2015 [facility] Left Carotid artery 07/21/17
--- OUTSIDE RECORDS SUMMARY | 2025-03-21 16:38 | XMS_ITS | Clinical Summary ---
Author Organization [facility] Address [address] [facility] [address] [place] [id number] Phone Care Team Providers Care Paper Novelty Maker Name Role Phone Unavailable Primary Care [...] 2003 OSTEOPOROSIS SCREENING INITI AL (ONE-TIME) 2018 INFLUENZA VACCINE (#1) 2025 COVID-19 VACCINE ( - 2023-2 5 season) 2025 RSV VACCINE (1 - 1-dose 75+ series) [...] It is not the complete legal health record.[facility]
== END ==
LOC: HO.CARD 13:58
PROVIDERS: PCP Internal Medicine; Visit Provider Internal Medicine Cardiovascular Disease
DX: Z01.810 Encounter for preprocedural cardiovascular examination (principal)
CPT/HCPCS: 93306

== ENCOUNTER → 2025-03-21 14:18 | Outpatient (BNV) | payer MEDICARE, MEDICAID, SELFPAY | PROVIDERS: PCP Internal Medicine; Visit Provider Internal Medicine Cardiovascular Disease | DX: I51.7 Cardiomegaly (principal); I34.2 Nonrheumatic mitral (valve) stenosis | CPT/HCPCS: 93306 ==

== ENCOUNTER 2025-03-22 14:51 | Outpatient (AMB) | payer MEDICARE, MEDICAID, SELFPAY ==
[2025-03-22 14:52] VITALS: BP 120/58; PULSE 103; TEMP 36.3; O2SAT 95; BMI 19.5
--- NOTE | 2025-03-22 14:52 | A.OFFPC_ITS ---
Vital Signs 03/22/25 14:52 Height 5 ft 7 in Weight 124 lb 6 oz BMI 19.5 BP 120/58 L Blood Pressure Location Lt brachial Position Sitting Pulse 103 H Pulse Source Pulse Oximeter Temp 97.3 F Temp Source Temporal Artery Scan Pulse Oximetry (%) 95 Oxygen Delivery Method Room Air Intake Visit Reasons: Med Check Allergies No Known Allergies Allergy (Verified 03/22/25 14:59) Tobacco use date assessed: 03/22/25 Fall risk assessment: 1 Fall in past year Last assessed Fall Risk: 03/22/25 Dental Screening Dental Screen Date: 03/22/25 Did you have a dental visit in the last 12 months?: Yes Did you have a dental problem in the last 6 months where you did not have access to dental care?: No Was dental information given to patient?: Patient has dentist HPI Med Check HPI [facility]. [facility] Medical History Right iliac artery stenosis Osteoarthritis Hypercholesterolemia Coronary artery disease Attention deficit disorder Right radial fracture Pulmonary nodule Diabetic nephropathy Carotid stenosis Anxiety and depression Hypertension Type 2 diabetes mellitus with hyperglycemia Lumbar spondylosis Surgical History History of tooth extraction H/O endarterectomy Amputation toe Family History Father Stroke Mother Pancreatic cancer Son Sleep apnea Social History Housing: House Alcohol intake: current Alcohol intake frequency: holidays/special occasions only Alcohol type: wine Patient Tobacco Use Status: Current everyday Tobacco user Tobacco use type: Cigarette Cigarettes Per Day: 3 e-Cigarette/Vaping Use: Never Used Second Hand Smoke Exposure: Yes service: No Current occupational status: unemployed Cognitive needs: No Hearing needs: No Vision needs: Yes Questionnaire PHQ-9 Over the last 2 weeks, how often have you been bothered by any of the following problems? 1. Little interest or pleasure in doing things: not at all 2. Feeling down, depressed, or hopeless: not at all 3. Trouble falling or staying asleep, or sleeping too much: not at all 4. Feeling tired or having little energy: several days 5. Poor appetite or overeating: not at all 6. Feeling bad about yourself - or that you are a failure or have let yourself or your family down: not at all 7. Trouble concentrating on things, such as reading the newspaper or watching television: not at all 8. Moving or speaking so slowly that other people could have noticed. Or the opposite - being so fidgety or restless that you have been moving around a lot more than usual: not at all 9. Thoughts that you would be better off or of hurting yourself in some way: not at all Total score: 1 Source: Developed by Drs. George Andrew, Marion Vasques, Milad Goncalves and colleagues, with an educational jaylen from [employer]. Thrive Questionnaire Date Thrive assessed: 12/02/24 I am a: Patient What is your living situation today?: I have a steady place to live Within the past 12 months, did the food you bought not last and you didn't have the money to get more?: I choose not to answer this question Within the past 12 months, did you worry whether your food would run out before you got money to buy more?: Never true Do you have trouble paying for medicines?: No Do you have trouble getting transportation to medical appointments?: No Do you have trouble paying your heating and electricity bill?: No Do you have trouble taking care of your child, family member or friend?: No Do you have trouble with day-to-day activities such as bathing, preparing meals, shopping, managing finances, etc.?: No Are you currently unemployed and looking for a job?: Yes Are you interested in more education?: Yes Please select the resources that you would like help with: None Currently or been in a relationship where the following occur: No concerns reported THRIVE Score: 0 AUDIT C Alcohol Use Questionnaire (AUDIT-C) 1. How often do you have a drink containing alcohol?: Never 3. How often do you have six or more drinks on one occasion?: Never Total Score: 0 PATRIC-7 AMB Questionnaire PATRIC-7 Date PATRIC - 7 assessed: 12/02/24 Feeling nervous, anxious, or on edge: 1 = Several days Not being able to stop or control worryin = Not at all Worrying too much about different things: 0 = Not at all Trouble relaxin = Not at all Being so restless that it is hard to sit still: 0 = Not at all Becoming easily annoyed or irritable: 0 = Not at all Feeling afraid as if something awful might happen: 0 = Not at all Total PATRIC-7 score (0-4 normal; 5-9 mild; 10-14 moderate; 15-21 severe): 1 Source: Developed by Drs. George Andrew, Marion Vasques, Milad Goncalves and colleagues, with an educational jaylen from [email or web address]. Physical exam (Primary Care) Vital Signs: Last Vital Signs Temp 97.3 F 03/22/25 14:52 Pulse 103 H 03/22/25 14:52 BP 120/58 L 03/22/25 14:52 Pulse Ox 95 03/22/25 14:52 Oxygen Delivery Method Room Air 03/22/25 14:52 BMI result Body Mass Index 19.5 Tobacco/Smoking Status: Tobacco use Status Tobacco use date assessed 03/22/25 03/22/25 15:00 Patient Tobacco Use Status Current everyday Tobacco 03/22/25 14:52 Tobacco use type Cigarette 03/22/25 14:52 e-Cigarette/Vaping Use Never Used 03/22/25 14:52 PHQ-9: PHQ-9 Score PHQ-9: Total score 1 03/22/25 15:00 Thrive Assessment: Date of Thrive Assessment Date Thrive assessed 12/02/24 03/22/25 14:52 Currently or been in a relationship where the following occur: No concerns reported Const Other: Bilateral impacted cerumen General: alert; No acute distress Eyes Conjunctivae: conjunctivae normal Resp Auscultation: clear to auscultation bilaterally Cardio Rate: regular rate Rhythm: regular rhythm GI Inspection: Yes normal to inspection Extrem General: Yes normal to inspection and No edema Office Procedures Cerumen Removal From which ear canal was the cerumen removed: bilateral Removal: irrigation, otoscope w/curette, cerumen loop/spoon and other Notes: patient tolerated procedure well, no complications and ear canal clear [id number] Irrigation/Lavage (done by YONI) Results AMB Hemoglobin A1c AMB Hemoglobin A1c 7.5 % Last Edit by Melany Hardin CMA on 03/22/25 15:08 Results Reviewed Results Reviewed: Laboratory Last Values Hgb A1c (Clinic) 7.5 % (4.0-6.0) H 03/22/25 15:00 Coding Level of Care Code Est Pt Level 4 (74064) Complex EM visit Add On G2211 Diagnoses Coronary artery disease involving [place] coronary artery of [place] heart without angina pectoris I25.10 Coronary Disease-Associated Artery/Lesion type: [place] artery [place] vs. transplanted heart: [place] heart Associated angina: without angina Peripheral arterial disease I73.9 Hypercholesterolemia E78.00 Essential hypertension I10 Hypertension type: essential hypertension Type 2 diabetes mellitus with hyperglycemia, without long-term current use of insulin E11.65 Diabetes mellitus group home insulin use: without group home use Pancreatic mass K86.89 Closed wedge compression fracture of L2 vertebra, sequela S32.020S Encounter type: sequela Lumbar vertebra fracture level: L2 Fracture type: closed Asthma J45.909 Tobacco abuse Z72.0 Generalized anxiety disorder F41.1 Opioid dependence F11.20 Pneumonia J18.9 Impacted cerumen of both ears H61.23 Hearing difficulty H91.90 CPT Codes Office Procedure - CPT: 97393-[id number] Irrigation/Lavage ([id number]) Assessment & Plan Assessment & Plan (1) Coronary artery disease: Code(s): I25.10 - Atherosclerotic heart disease of [place] coronary artery without angina pectoris Category: Medical Qualifiers: Coronary Disease-Associated Artery/Lesion type: [place] artery [place] vs. transplanted heart: [place] heart Associated angina: without angina Qualified Code(s): I25.10 - Atherosclerotic heart disease of [place] coronary artery without angina pectoris Plan: Control the cholesterol, weight, blood pressure, diabetes patient was advised to start on aspirin 81 mg once a day (2) Peripheral arterial disease: Comment: April 2024 CT angio short segment severe stenosis distal right superficial femoral artery focal moderate to severe stenosis mid right popliteal artery left lower extremity multifocal moderate stenosis left superficial femoral artery short segment severe stenosis in the proximal and mid left popliteal artery patent 3 vessel runoff. Code(s): I73.9 - Peripheral vascular disease, unspecified Category: Medical Plan: Patient is advised to start on aspirin and would probably benefit for dual antiplatelet (3) Hypercholesterolemia: Code(s): E78.00 - Pure hypercholesterolemia, unspecified Category: Medical Plan: Avoid fried foods, chicken skin, eggs, butter margarine, pastries and meat. Be it pork or beef they have a lot of cholesterol LDL goal of less than 70 and triglyceride of less than 150 patient is supposed to be on rosuvastatin 40 mg once a day (4) Hypertension: Code(s): I10 - Essential (primary) hypertension Category: Medical Qualifiers: Hypertension type: essential hypertension Qualified Code(s): I10 - E ssential (primary) hypertension Plan: Continue with blood pressure medication. Decrease salt intake and exercise reviewed notes from Cardiology does have low normal ejection fraction started on metoprolol 50 mg once a day (5) Type 2 diabetes mellitus with hyperglycemia: Comment: [facility] Code(s): E11.65 - Type 2 diabetes mellitus with hyperglycemia Category: Medical Qualifiers: Diabetes mellitus terminal worker insulin use: without terminal worker use Qualified Code(s): E11.65 - Type 2 diabetes mellitus with hyperglycemia Plan: Decrease the amount of carbohydrate intake, pasta, bread, rice and potatoes are all sugar and that is aside from all the sweet stuff, remember that fruits are good but they are Sweet also. On metformin a 1000 twice a day Trulicity at 0.75 mg once a week and Jardiance 25 mg once a day (6) Pancreatic mass: Comment: [facility] Code(s): K86.89 - Other specified diseases of pancreas Category: Medical Plan: Patient was supposed to have an endoscopy done but due to patient's risk cardiac workup underway (7) Wedge compression fracture of lumbar vertebra: Comment: May 2022 MR L1 and L2 Code(s): S32.000A - Wedge compression fracture of unspecified lumbar vertebra, initial encounter for closed fracture Category: Medical Qualifiers: Encounter type: sequela Lumbar vertebra fracture level: L2 Fracture type: closed Qualified Code(s): S32.020S - Wedge compression fracture of second lumbar vertebra, sequela Plan: Narcotic pain meds: Is being prescribed with the understanding that these medications are potentially addictive and should be used only when absolutely necessary and must always be secured. Any remaining pills should be safely disposed off appropriately. Patient is advised that narcotics can impaired judgment and one should not drive or operate heavy machinery while taking these medications. Never share these medications with anybody and do not leave them unattended. They will not be replaced under any circumstances. (8) Asthma: Code(s): J45.909 - Unspecified asthma, uncomplicated Category: Medical Plan: Patient is strongly advised to stop smoking. On albuterol inhaler (9) Tobacco abuse: Comment: still smoking 06/2023 Code(s): Z72.0 - Tobacco use Category: Medical Plan: Patient is strongly advised to stop smoking summation point (10) Generalized anxiety disorder: Comment: [facility]adiaga seeing Q 2 months Code(s): F41.1 - Generalized anxiety disorder Category: Medical Plan: Patient is advised to continue with counseling and therapy (11) Opioid dependence: Code(s): F11.20 - Opioid dependence, uncomplicated Category: Medical Plan: Discussion with the patient on the need to decrease pain medication. (12) Pneumonia: Comment: 02/20/2025 Code(s): J18.9 - Pneumonia, unspecified organism Category: Medical (13) Impacted cerumen of both ears: Code(s): H61.23 - Impacted cerumen, bilateral Category: Medical Plan: Irrigation done by [place] (14) Hearing difficulty: Code(s): H91.90 - Unspecified hearing loss, unspecified ear Category: Medical Plan History of Present Illness The patient is a 70-year-old female presenting for a follow-up visit after being last seen on December 30, 2022. The patient has a history of lumbar spondylosis and a wedge compression fracture of the lumbar vertebra, for which she is on narcotic pain medication. She has developed opioid dependence as a result of her pain management regimen. The patient has diabetes mellitus with a recent hemoglobin A1c of 7.5, indicating poor glycemic control. She is on metformin, Jardiance, and Trulicity for diabetes management. The patient has a history of hypertension and coronary artery disease, with peripheral arterial disease also noted. She was advised to start on aspirin and metoprolol for cardiovascular management. The patient has hypercholesterolemia and is supposed to be on rosuvastatin. The patient has a history of generalized anxiety disorder and osteoporosis. The patient was hospitalized on February 20 for confusion and was found to be tachycardic and hypoxemic, requiring supplemental oxygen. She was diagnosed with pneumonia and treated accordingly. The patient had an echocardiogram on March 21, which showed a normal left ventricular ejection fraction of 50-55% with impaired relaxation and a moderately dilated left atrium. Mild mitral stenosis was also noted. Preventative care measures include a colonoscopy last done in 2015, with mammogram and bone density tests due. Health Maintenance - Colonoscopy last performed in 2016, mammogram and bone density tests are due - Advised to stop smoking - Blood sugar management with a target hemoglobin A1c Social History - Smoking: Patient is a smoker and has been advised to quit Review of Systems - Cardiovascular: Reports tachycardia, denies chest pain - Respiratory: Reports dyspnea, denies cough - Neurological: Reports confusion Physical Exam - Ears: Blocked ears noted Results - Echocardiogram: Normal left ventricular ejection fraction of 50-55%, impaired relaxation, moderately dilated left atrium, mild mitral stenosis - Hemoglobin A1c: 7.5, indicating elevated blood sugar levels Plan Patient was informed and verbally consented to the use of an ambient scribe for clinic note documentation during this visit. 1. Diabetes Mellitus The patient has diabetes mellitus with a hemoglobin A1c of 7.5, indicating poor glycemic control. She is currently on metformin, Jardiance, and Trulicity for management. Continued monitoring of blood sugar levels and adherence to medicat ion is advised. 2. Coronary Artery Disease The patient has coronary artery disease with peripheral arterial disease. She is advised to start on aspirin and metoprolol for cardiovascular management. 3. Pneumonia The patient was hospitalized for pneumonia and treated with supplemental oxygen. A follow-up chest x-ray is recommended to confirm resolution. 4. Opioid Dependence The patient has developed opioid dependence due to chronic pain management. She is advised to continue with counseling and therapy to address this issue. 5. Preventative Care Preventative care measures include scheduling a colonoscopy, mammogram, and bone density test. The patient is also advised to stop smoking to improve overall health. Discussion Notes During the visit, I discussed with the patient the importance of managing her diabetes and cardiovascular conditions through medication adherence and lifestyle modifications, including smoking cessation. We reviewed her recent echocardiogram results and the need for follow-up imaging to monitor her pneumonia recovery. I emphasized the necessity of preventative screenings, such as a colonoscopy, mammogram, and bone density test, to maintain her overall health. Patient Instructions - Continue taking metformin, Jardiance, and Trulicity as prescribed for diabetes management. - Start taking aspirin and metoprolol as advised for heart health. - Schedule a follow-up chest x-ray to ensure pneumonia has resolved. - Quit smoking to improve overall health and reduce cardiovascular risk. - Arrange for a colonoscopy, mammogram, and bone density test as part of preventative care. Orders: Orders AMB Hemoglobin A1c Today Z13.9 - Encounter for screening, unspecified XR chest 2V Today J18.9 - Pneumonia, unspecified organism Referrals Speech and Hearing Referral H91.90 - Unspecified hearing loss, unspecified ear Medications: Changed From oxycodone May partial fill 15 mg PO Q6H 15 days PRN 57 tabs 0RF pain M51.36 - Other intervertebral disc degeneration, lumbar region, S32.000A - Wedge compression fracture of unspecified lumbar vertebra, initial encounter for closed fracture To oxycodone May partial fill 15 mg PO Q6H PRN 110 tabs 0RF pain 30 days M51.36 - Other intervertebral disc degeneration, lumbar region, S32.000A - Wedge compression fracture of unspecified lumbar vertebra, initial encounter for closed fracture
--- OUTSIDE RECORDS SUMMARY | 2025-03-22 18:02 | XMS_ITS | Clinical Summary ---
Author Organization [facility] Address [address] [place] [id number] Phone Care Team Providers Care Chronometer Assembler And Adjuster Name Role Phone Unavailable Primary Care Provider [...] It is not the complete legal health record.[facility]
--- OUTSIDE RECORDS SUMMARY | 2025-03-22 18:02 | XMS_ITS | Clinical Summary ---
Author Organization [facility] Address [address] [place] [address] Care Team Providers Care Rotor Winder Name Role Phone Maren Martel DMD Primary Care Provider [phone] Source Comments PLEASE NOTE, if this patient [...] Bone Density Screening 2018 Falls Prevention 2018 Alcohol and Drug Screen 07/13/2024 Depression Annual Screen 07/13/2024 [id number] ( season) 2025 Imm-Influenza (#1) 2025 06/19/2017, 1 08/17/2016, 04/17/2016, [...] Most Recently Relevant to Health Maintenance Insurance [place] Care Teams Rotor Winder Relationship Specialty Start Date End Date Maren Matrel DMD [address] [place] [address] PCP - General 03/24/19
--- OUTSIDE RECORDS SUMMARY | 2025-03-22 18:02 | XMS_ITS | Clinical Summary ---
Author Organization [facility] [address] [facility] Address [address] [place] [address] Phone Care Team Providers Care Counter Molder Name Role Phone Diandra Grady MD Primary Care Provider [phone] Allergies No known active allergies Medications Trulicity [...] Coronary artery disease with angina pectoris ([facility] V24) 05/23/2024 ADD (attention deficit disorder) 05/23/2024 Type 2 diabetes mellitus ([facility] V24, [place] V 28) 05/23/2024 Neuropathy associated with endocrine disorder ([facility] V24) 05/23/2024 Bilateral carotid artery stenosis 05/23/2024 Primary hypertension 05/23/2024 Anxiety 05/23/2024 Depression 05/23/2024 Chronic low back pain 05/23/2024 Surgical History Surgery Date Site/Laterality Comments TOE AMPUTATION CAROTID ENDARTERECTOMY COLONOSCOPY 07/01/2016 nl, tics, hemorrhoids ESOPHAGOGASTRODUODENOSCOPY 07/01/2016 nl CHOLECYSTECTOMY Medical History Medical History Date Comments GERD (gastroesophageal reflux disease) Irritable bowel syndrome with diarrhea HTN (hypertension) Diabetes ([facility] V24, [place] V28) Hyperlipidemia Chronic back pain PVD (peripheral vascular disease) ([place] V24) Family History Medical History Relation Name [...] mmol/L LAB CHEMISTRY METHOD 08/25/2024 4:[address] [facility] Potassium 4.4 3.5 - 5.5 mmol/L LAB CHEMISTRY METHOD 08/25/2024 4:[address] [facility] Chloride 103 96 - 110 mmol/L LAB CHEMISTRY METHOD 08/25/2024 4:[address] [facility] CO2 26 21 - 32 mmol/L LAB CHEMISTRY METHOD 08/25/2024 4:[address] [facility] Anion Gap 8 3 - 11 LAB CHEMISTRY METHOD 08/25/2024 4:[address] [facility] Glucose 185(H) 70 - 100 mg/dL LAB CHEMISTRY METHOD 08/25/2024 4:[address] [facility] BUN 20 5 - 25 mg/dL LAB CHEMISTRY METHOD 08/25/2024 4:[address] [facility] Creatinine 1.42(H) 0.50 - 1.10 mg/dL LAB CHEMISTRY METHOD 08/25/2024 4:[address] [facility] eGFR 40(L) >=60 mL/min/1. 73m2 LAB CHEMISTRY METHOD 08/25/2024 4:[address] [facility] Comment:Calculation based on the Chronic Kidney Disease Epidemiology Collaboration (CKD-EPI) equation refit without adjustment for race. BUN/Creatinine Ratio 14.1 LAB CHEMISTRY METHOD 08/25/2024 4:[address] [facility] Calcium 9.5 8.5 - 10.5 mg/dL LAB CHEMISTRY METHOD 08/25/2024 4:[address] [facility] AST (SGOT) 20 10 - 42 unit/L LAB CHEMISTRY METHOD 08/25/2024 4:[address] [facility] ALT (SGPT) 15 10 - 60 unit/L LAB CHEMISTRY METHOD 08/25/2024 4:[address] [facility] Alkaline Phosphatase 76 42 - 121 unit/L LAB CHEMISTRY METHOD 08/25/2024 4:[address] [facility] Total Protein 6.8 6.0 - 8.0 g/dL LAB CHEMISTRY METHOD 08/25/2024 4:[address] [facility] Albumin 3.5 3.2 - 5.0 g/dL LAB CHEMISTRY METHOD 08/25/2024 4:[address] [facility] Total Bilirubin 0.3 0.0 - 1.4 mg/dL LAB CHEMISTRY METHOD 08/25/2024 4:[address] [facility] Blood Venous blood specimen / Unknown Venipuncture / Unknown 08/25/2024 3:19 PM EST 08/25/2024 3:58 PM EST Eryn Lauren RESIDENTIAL PROPERTY MANAGER LAB BLOOD ORDERABLES Final Re sult [facility] [address] [place] [address], * COLONOSCOPY (07/01/2016 9:36 AM EST) Anatomical Region Laterality Modality Endoscopy Historical Provider GI~PROCEDURE ORDERABLES F inal Result from Last 3 Months or Most Recently Relevant to Health Maintenance Insurance [employer] MEDICARE ADVANTAGE MEDICAID - [place] Care Teams Counter Molder Relationship Specialty Start Date End Date Diandra Grady MD [address] [place] [address] [address] [facility] [place] [address] PCP - General Internal Medicine 07/15/21
--- OUTSIDE RECORDS SUMMARY | 2025-03-22 18:02 | XMS_ITS | Clinical Summary ---
Author Organization [facility]. Address [address] [address] Phone Care Team Providers Care Shower Doors And Panels Fabricator Name Role Phone Unavailable Primary Care Provider [...] Insurance [place] [employer] MCR Adv PPO ([id number])
--- OUTSIDE RECORDS SUMMARY | 2025-03-22 18:02 | XMS_ITS | Patient Health Record ---
Author Organization [facility] Address [address] [facility] [address] [place] [address] Care Team Providers Care Grinder Machine Knife Setter Name Role Phone Diandra Grady Primary Care Provider Unavailabl e Black, Camryn Unavailable [phone] Reason For Referral No Information Medications Medication [...] Problem Acquired hammer toe of right foot (3464147694032700 ) Other hammer toe(s) (acquired), right foot (M20.41) Active confirmed Problem Acquired hammer toe of left foot (0487780046719053 ) Other hammer toe(s) (acquired), left foot (M20.42) Active confirmed Problem Polyneuropathy due to type 2 diabetes mellitus (096650024) Type 2 diabetes mellitus with diabetic polyneuropathy (E11.42) Active confirmed Encounters Encounter Location Date Provider Diagnosis [facility] [address] 09/06/2024 [facility] [address] [address] 10/27/2024 Camryn Lazaro [facility] [address] [address] 02/14/2025 Camryn Lazaro [facility] [address] 03/01/2025 Camryn Lazaro Plan Of Treatment Pending Test Test Name Order Date [id number] NAIL, 6 OR MORE 10/09/2015 [id number] NAIL, 6 OR MORE 11/01/2015 87861-[id number] NAIL, 6 OR MORE 01/02/2017 [id number] NAIL, 6 OR MORE 08/10/2017 [id number] NAIL, 1-5 12/25/2015 [id number]-[id number] NAIL, 1-5 01/09/2016 58500- Debride <25 sq cm 10/09/2015 [id number] SKIN/TISSUE 01/09/2016 [id number] SKIN/TISSUE 11/01/2015 [id number] SKIN/TISSUE 11/29/2015 99815-[id number] SKIN/TISSUE 12/25/2015 70516-PAVQ SKIN LESIONS, OVER 4 01/03/20 17 27936-YQAH SKIN LESIONS, OVER 4 08/10/19 18 47642-USUD SKIN LESIONS, 2 TO 4 10/09/19 16 Insurance Providers Payer Name Payer Address Payer Phone Subscriber Number Group Number Insured Name Patient Relationship to Insured Coverage Start Date Coverage End Date AARP Medicare Complete [address] [address] [place] [address] [id number] Lena Bill Self - patient is the insured Medical (General) History Medical History History ICD Code Anxiety Arthritis Cataracts Depression type II diabetes Neuropathy High blood pressure Headaches Psychiatric disorder Back,Hip,and Knee pain Reflux Measles Mumps Chicken pox Surgical History Surgery Date(Month/Year) Stent at [facility] 11-23-2015 Hospitalization History Reason Date(Month/Year) [facility] - stent iliac artery & amputati on of toe 12/2015 [facility] Left Carotid artery 07/21/17
== END 2025-03-22 16:43 | disposition home or self-care (01) ==
LOC: HO.HMCH 14:51
PROVIDERS: PCP Internal Medicine; Visit Provider Internal Medicine
DX: I25.10 Atherosclerotic heart disease of native coronary artery without angina pectoris (principal); E11.65 Type 2 diabetes mellitus with hyperglycemia; F11.20 Opioid dependence, uncomplicated; I73.9 Peripheral vascular disease, unspecified; E78.00 Pure hypercholesterolemia, unspecified; I10 Essential (primary) hypertension; K86.89 Other specified diseases of pancreas; S32.020S Wedge compression fracture of second lumbar vertebra, sequela; J45.909 Unspecified asthma, uncomplicated; Z72.0 Tobacco use; H61.23 Impacted cerumen, bilateral; F41.1 Generalized anxiety disorder

== ENCOUNTER → 2025-03-22 14:51 | Outpatient (BNVA) | payer MEDICARE, MEDICAID, SELFPAY | PROVIDERS: PCP Internal Medicine; Visit Provider Internal Medicine | DX: I25.10 Atherosclerotic heart disease of native coronary artery without angina pectoris (principal); E11.51 Type 2 diabetes mellitus with diabetic peripheral angiopathy without gangrene; E11.65 Type 2 diabetes mellitus with hyperglycemia; E78.00 Pure hypercholesterolemia, unspecified; I10 Essential (primary) hypertension; J45.909 Unspecified asthma, uncomplicated; F41.1 Generalized anxiety disorder; F11.20 Opioid dependence, uncomplicated; F17.210 Nicotine dependence, cigarettes, uncomplicated; J18.9 Pneumonia, unspecified organism; H61.23 Impacted cerumen, bilateral; M47.816 Spondylosis without myelopathy or radiculopathy, lumbar region; M81.0 Age-related osteoporosis without current pathological fracture; S32.020S Wedge compression fracture of second lumbar vertebra, sequela; X58.XXXS Exposure to other specified factors, sequela | CPT/HCPCS: 69210; 83036; 96127; 99212 ==

== ENCOUNTER 2025-04-12 16:36 | Outpatient (AMB) | payer MEDICARE, MEDICAID, SELFPAY ==
[2025-04-12 16:39] VITALS: BP 138/74; PULSE 99; TEMP 36.3; O2SAT 95
--- NOTE | 2025-04-12 16:39 | A.OFFPC_ITS ---
Vital Signs 04/12/25 16:39 Height 5 ft 7 in Weight 127 lb 8 oz BMI 20.0 BP 138/74 Blood Pressure Location Lt brachial Position Sitting Pulse 99 Pulse Source Pulse Oximeter Temp 97.3 F Temp Source Temporal Artery Scan Pulse Oximetry (%) 95 Oxygen Delivery Method Room Air Intake Visit Reasons: ? PNA Allergies No Known Allergies Allergy (Verified 04/12/25 16:43) Medication List - Last Reconciled 04/12/25 by Carmelo Edward MD albuterol sulfate 90 mcg/actuation (Ventolin HFA) 2 puffs inhalation Q6H PRN alprazolam 2 mg PO BID-TID PRN amoxicillin-pot clavulanate 875-125 mg 1 tab PO BID aspirin (Adult Low Dose Aspirin) 81 mg PO DAILY atomoxetine 25 mg PO QAM atomoxetine 60 mg PO QAM azithromycin For 250 mg dose pack: take 500 mg today (day 1), then 250 mg for 4 days (days 2-5) PO blood sugar diagnostic As directed check blood sugars q.day blood-glucose meter As directed blood-glucose sensor (E[employer] G7 Sensor device) As directed blood-glucose,database operator,cont ([employer] G7 Bi Application Developer) As directed diphenoxylate-atropine 2.5-0.025 mg tabs PO BID dulaglutide 0.75 mg (0.5 mL) subcut QWEEK 30 days empagliflozin 25 mg PO QAM ezetimibe (Zetia) 10 mg PO DAILY 30 days flash glucose scanning reader (iFlexMeStyle Mich 2 [place]) As directed flash glucose sensor (FreeStyle Mich 2 Sensor kit) As directed hydroxyzine HCl 25 mg PO DAILY hydroxyzine HCl mg PO BEDTIME lancets As directed loperamide 2 mg PO TID metformin ER 1,000 mg (2 x 500 mg) PO BID metoprolol succinate ER (Toprol XL) 50 mg PO DAILY mupirocin 2% 1 appl topical 3XW naloxone 4 mg/actuation (Narcan) 4 mg intranasal Q3M PRN nicotine 1 patch transdermal DAILY nitroglycerin 0.4 mg PO Every 5 minutes x3; omeprazole 40 mg PO DAILY ondansetron 8 mg PO Q8H PRN oxycodone 15 mg PO Q6H PRN 30 days pen needle, diabetic As directed prednisone 20 mg PO BID rosuvastatin 40 mg PO DAILY 30 days tiotropium bromide 1.25 mcg/actuation (Spiriva Respimat) 2 puffs inhalation DAILY trazodone 50 mg PO BEDTIME PRN varenicline tartrate (Chantix Starting Month Box) PO PER PKG DIR Tobacco use date assessed: 03/22/25 Fall risk assessment: 1 Fall in past year Last assessed Fall Risk: 04/12/25 Dental Screening Dental Screen Date: 03/22/25 Did you have a dental visit in the last 12 months?: Yes Did you have a dental problem in the last 6 months where you did not have access to dental care?: No Was dental information given to patient?: Patient has dentist HPI HPI Comments History of Present Illness Details 70 yo F with pmh of TUD, COPD, anxiety w ho is presenting with SOB. The patient reports recent diagnosis of PNA for which she was treated with Abx in late February. On Thursday she was seen in Urgent care for SOB and dry cough where she was prescribed Augumentin, prednisone and Azithromycin. The patient reports continue to have SOB. She uses Albuterol but no other inhalers. [facility] Medical History Right iliac artery stenosis Osteoarthritis Hypercholesterolemia Coronary artery disease Attention deficit disorder Right radial fracture Pulmonary nodule Diabetic nephropathy Carotid stenosis Anxiety and depression Hypertension Type 2 diabetes mellitus with hyperglycemia Lumbar spondylosis Surgical History History of tooth extraction H/O endarterectomy Amputation toe Family History Father Stroke Mother Pancreatic cancer Son Sleep apnea Social History Housing: House Alcohol intake: current Alcohol intake frequency: holidays/special occasions only Alcohol type: wine Patient Tobacco Use Status: Current everyday Tobacco user Tobacco use type: Cigarette Cigarettes Per Day: 3 e-Cigarette/Vaping Use: Never Used Second Hand Smoke Exposure: Yes service: No Current occupational status: unemployed Cognitive needs: No Hearing needs: No Vision needs: Yes Questionnaire PHQ-9 Over the last 2 weeks, how often have you been bothered by any of the following problems? 1. Little interest or pleasure in doing things: not at all 2. Feeling down, depressed, or hopeless: not at all 3. Trouble falling or staying asleep, or sleeping too much: not at all 4. Feeling tired or having little energy: several days 5. Poor appetite or overeating: not at all 6. Feeling bad about yourself - or that you are a failure or have let yourself or your family down: not at all 7. Trouble concentrating on things, such as reading the newspaper or watching television: not at all 8. Moving or speaking so slowly that other people could have noticed. Or the opposite - being so fidgety or restless that you have been moving around a lot more than usual: not at all 9. Thoughts that you would be better off or of hurting yourself in some way: not at all Total score: 1 Source: Developed by Drs. George Andrew, Marion Vasques, Milad Goncalves and colleagues, with an educational jaylen from [employer]. Thrive Questionnaire Date Thrive assessed: 12/02/24 I am a: Patient What is your living situation today?: I have a steady place to live Within the past 12 months, did the food you bought not last and you didn't have the money to get more?: I choose not to answer this question Within the past 12 months, did you worry whether your food would run out before you got money to buy more?: Never true Do you have trouble paying for medicines?: No Do you have trouble getting transportation to medical appointments?: No Do you have trouble paying your heating and electricity bill?: No Do you have trouble taking care of your child, family member or friend?: No Do you have trouble with day-to-day activities such as bathing, preparing meals, shopping, managing finances, etc.?: No Are you currently unemployed and looking for a job?: Yes Are you interested in more education?: Yes Please select the resources that you would like help with: None Currently or been in a relationship where the following occur: No concerns reported THRIVE Score: 0 AUDIT C Alcohol Use Questionnaire (AUDIT-C) 1. How often do you have a drink containing alcohol?: 2-3 times a week 2. How many drinks containing alcohol do you have on a typical day when you are drinking?: 1 or 2 3. How often do you have six or more drinks on one occasion?: Never Total Score: 3 PATRIC-7 AMB Questionnaire PATRIC-7 Date PATRIC - 7 assessed: 12/02/24 Feeling nervous, anxious, or on edge: 1 = Several days Not being able to stop or control worryin = Not at all Worrying too much about different things: 0 = Not at all Trouble relaxin = Not at all Being so restless that it is hard to sit still: 0 = Not at all Becoming easily annoyed or irritable: 0 = Not at all Feeling afraid as if something awful might happen: 0 = Not at all Total PATRIC-7 score (0-4 normal; 5-9 mild; 10-14 moderate; 15-21 severe): 1 Source: Developed by Drs. George Andrew, Marion Vasques, Milad Goncalves and colleagues, with an educational jaylen from [employer]. Review of Systems Const Details: Positives besides what was mentioned in HPI are in BOLD Constitutional: No Weight Change, No Fever, No Chills, No Night Sweats, No Fatigue, No Malaise ENT/Mouth: No Hearing Changes, No Ear Pain, No Nasal Congestion, No Sinus Pain, No Hoarseness, No sore throat, No Rhinorrhea, No Swallowing Difficulty Eyes: No Eye Pain, No Swelling, No Redness, No Foreign Body, No Discharge, No Vision Changes Cardiovascular: No Chest Pain, No SOB, No PND, No Dyspnea on Exertion, No Orthopnea, No Claudication, No Edema, No Palpitations Respiratory: No Cough, No Sputum, No Wheezing, No Smoke Exposure, No Dyspnea Gastrointestinal: No Nausea, No Vomiting, No Diarrhea, No Constipation, No Pain, No Heartburn, No Anorexia, No Dysphagia, No Hematochezia, No Melena, No Flatulence, No Jaundice Genitourinary: No Dysmenorrhea, No DUB, No Dyspareunia, No Dysuria, No Urinary Frequency, No Hematuria, No Urinary Incontinence, No Urgency, No Flank Pain, No Urinary Flow Changes, No Hesitancy Musculoskeletal: No Arthralgias, No Myalgias, No Joint Swelling, No Joint Stiffness, No Back Pain, No Neck Pain, No Injury History Skin: No Skin Lesions, No Pruritis, No Hair Changes, No Breast/Skin Changes, No Nipple Discharge Neuro: No Weakness, No Numbness, No Paresthesias, No Loss of Consciousness, No Syncope, No Dizziness, No Headache, No Coordination Changes, No Recent Falls Psych: No Anxiety/Panic, No Depression, No Insomnia, No Personality Changes, No Delusions, No Rumination, No SI/HI/AH/VH, No Social Issues, No Memory Changes, No Violence/Abuse Hx., No Eating Concerns Heme/Lymph: No Bruising, No Bleeding, No Transfusions History, No Lymphadenopathy Endocrine: No Polyuria, No Polydipsia, No Temperature Intolerance Physical exam (Primary Care) Vital Signs: Last Vital Signs Temp 97.3 F 04/12/25 16:39 Pulse 99 04/12/25 16:39 BP 138/74 04/12/25 16:39 Pulse Ox 95 04/12/25 16:39 Oxygen Delivery Method Room Air 04/12/25 16:39 BMI result Body Mass Index 20.0 Tobacco/Smoking Status: Tobacco use Status Tobacco use date assessed 03/22/25 04/12/25 16:46 Patient Tobacco Use Status Current everyday Tobacco 04/12/25 16:46 Tobacco use type Cigarette 04/12/25 16:46 e-Cigarette/Vaping Use Never Used 04/12/25 16:46 PHQ-9: PHQ-9 Score PHQ-9: Total score 1 04/12/25 16:46 Thrive Assessment: Date of Thrive Assessment Date Thrive assessed 12/02/24 04/12/25 16:46 Currently or been in a relationship where the following occur: No concerns reported Const Other: Pertinent findings are in BOLD GENERAL APPEARANCE NAD, activity normal for age, well developed/ well nourished, no cyanosis, pallor, or diaphoresis. EYES lids/conjunctiva normal. EARS/NOSE/THROAT Mucous membranes moist, nares normal, lips/teeth normal uvula midline without oral pharyngeal erythema, exudate or swelling TMs normal bilaterally. No lymphangitis/lymphedema. HEAD/NECK normocephalic atraumatic, no facial trauma, neck is supple. RESPIRATORY Short of breath, mild wheezing, no crackles. CARDIAC Regular rate and rhythm, no edema. ABDOMINAL Soft, ND/NT. No evidence of fluid wave. No pulsatile masses on exam, rebound tenderness, Ohlman sign or pain over Mcburney's point. MUSCLES/EXTREMITIES No abnormal range of motion, no swelling. SKIN Warm, pink and dry. No rashes, dermatoses, petechiae or lesions. NEUROLOGICAL Speech is clear and appropriate. Normal level of consciousness. Gait and coordination are normal. 5/5 strength in all extremities. PSYCH Normal mood and affect. Judgement/competence is appropriate Coding Level of Care Code Est Pt Level 4 (35981) Diagnoses Shortness of breath R06.02 Tobacco use disorder F17.200 Assessment & Plan Assessment & Plan (1) Shortness of breath: Code(s): R06.02 - Shortness of breath Category: Medical Plan: Advised paitent to continue regimen prescribed at urgent care. Added Spiriva as the patient's case is most likely chronic than acute. Pulmonology referral for further COPD treatment. (2) Tobacco use disorder: Code(s): F17.200 - Nicotine dependence, unspecified, uncomplicated Category: Medical Plan: Reffred patient to thoracic surgery for lung cancer screening. Plan Continue Abx and prednisone prescribed at Urgent care. Added Spiriva. Pulm and thoracic surgery referral. Orders: Referrals Pulmonology Referral R06.02 - Shortness of breath Thoracic/General Surgery Referral F17.200 - Nicotine dependence, unspecified, uncomplicated Medications: New tiotropium bromide 1.25 mcg/actuation (Spiriva Respimat) 2 puffs inhalation DAILY 4 grams 1RF
--- OUTSIDE RECORDS SUMMARY | 2025-04-12 16:42 | XMS_ITS | Clinical Summary ---
Author Organization [facility] Address [address] [address] Phone Care Team Providers Care Skiagrapher Name Role Phone Unavailable Primary Care Provider [...] Insurance Medicaid [place] Aetna MCR Adv PPO ([id number])
--- OUTSIDE RECORDS SUMMARY | 2025-04-12 16:42 | XMS_ITS | Clinical Summary ---
Author Organization [facility] [address] [facility] Address [address] [place] [address] Phone Care Team Providers Care Ladle Operator Name Role Phone Diandra Grady MD Primary Care Provider [phone] Allergies No known active allergies Medications Trulicity [...] disease with angina pectoris (CM S/[facility] V24) 05/23/2024 ADD (attention deficit disorder) 05/23/2024 Type 2 diabetes mellitus ([facility] V24, [facility] V 28) 05/23/2024 Neuropathy associated with endocrine disorder (C GA/[facility] V24) 05/23/2024 Bilateral carotid artery stenosis 05/23/2024 Primary hypertension 05/23/2024 Anxiety 05/23/2024 Depression 05/23/2024 Chronic low back pain 05/23/2024 Surgical History Surgery Date Site/Laterality Comments TOE AMPUTATION CAROTID ENDARTERECTOMY COLONOSCOPY 07/01/2016 nl, tics, hemorrhoids ESOPHAGOGASTRODUODENOSCOPY 07/01/2016 nl CHOLECYSTECTOMY Medical History Medical History Date Comments GERD (gastroesophageal reflux disease) Irritable bowel syndrome with diarrhea HTN (hypertension) Diabetes ([facility] V24, [facility] V28) Hyperlipidemia Chronic back pain PVD (peripheral vascular disease) ([facility] V24) Family History Medical History Relation Name [...] mmol/L LAB CHEMISTRY METHOD 08/25/2024 4:32 PM [facility] Potassium 4.4 3.5 - 5.5 mmol/L LAB CHEMISTRY METHOD 08/25/2024 4:32 PM [facility] Chloride 103 96 - 110 mmol/L LAB CHEMISTRY METHOD 08/25/2024 4:32 PM [facility] CO2 26 21 - 32 mmol/L LAB CHEMISTRY METHOD 08/25/2024 4:32 PM [facility] Anion Gap 8 3 - 11 LAB CHEMISTRY METHOD 08/25/2024 4:32 PM [facility] Glucose 185(H) 70 - 100 mg/dL LAB CHEMISTRY METHOD 08/25/2024 4:32 PM [facility] BUN 20 5 - 25 mg/dL LAB CHEMISTRY METHOD 08/25/2024 4:32 PM [facility] Creatinine 1.42(H) 0.50 - 1.10 mg/dL LAB CHEMISTRY METHOD 08/25/2024 4:32 PM [facility] eGFR 40(L) >=60 mL/min/1. 73m2 LAB CHEMISTRY METHOD 08/25/2024 4:32 PM [facility] Comment:Calculation based on the Chronic Kidney Disease Epidemiology Collaboration (CKD-EPI) equation refit without adjustment for race. BUN/Creatinine Ratio 14.1 LAB CHEMISTRY METHOD 08/25/2024 4:32 PM [facility] Calcium 9.5 8.5 - 10.5 mg/dL LAB CHEMISTRY METHOD 08/25/2024 4:32 PM [facility] AST (SGOT) 20 10 - 42 unit/L LAB CHEMISTRY METHOD 08/25/2024 4:32 PM EST [facility] ALT (SGPT) 15 10 - 60 unit/L LAB CHEMISTRY METHOD 08/25/2024 4:32 PM EST [facility] Alkaline Phosphatase 76 42 - 121 unit/L LAB CHEMISTRY METHOD 08/25/2024 4:32 PM [facility] Total Protein 6.8 6.0 - 8.0 g/dL LAB CHEMISTRY METHOD 08/25/2024 4:32 PM EST [facility] Albumin 3.5 3.2 - 5.0 g/dL LAB CHEMISTRY METHOD 08/25/2024 4:32 PM [facility] Total Bilirubin 0.3 0.0 - 1.4 mg/dL LAB CHEMISTRY METHOD 08/25/2024 4:32 PM [facility] Blood Venous blood specimen / Unknown Venipuncture / Unknown 08/25/2024 3:19 PM EST 08/25/2024 3:58 PM EST Eryn Lauren [employer] LAB BLOOD ORDERABLES Final Re sult [facility] [address] [place] [address], * COLONOSCOPY (07/01/2016 9:36 AM EST) Anatomical Region Laterality Modality Endoscopy Historical Provider GI~PROCEDURE ORDERABLES F inal Result from Last 3 Months or Most Recently Relevant to Health Maintenance Insurance [employer] MEDICARE ADVANTAGE MEDICAID - [place] Care Teams Ladle Operator Relationship Specialty Start Date End Date Diandra Grady MD [address] [place] [address] [address] [facility] [place] [address] PCP - General Internal Medicine 07/15/21
--- OUTSIDE RECORDS SUMMARY | 2025-04-12 16:42 | XMS_ITS | Clinical Summary ---
Author Organization [facility] Address [address] [facility] [address] [place] [phone] Phone Care Team Providers Care Game Farm Helper Name Role Phone Unavailable Primary Care [...] It is not the complete legal health record.[facility]
--- OUTSIDE RECORDS SUMMARY | 2025-04-12 16:42 | XMS_ITS | Clinical Summary ---
Author Organization [facility] Address [address] [facility] [place] [address] Care Team Providers Care Line Ordering Clinician Name Role Phone Maren Martel DMD Primary Care Provider [phone] Source Comments PLEASE NOTE, if this patient [...] Drug Screen 07/13/2024 Depression Annual Screen 07/13/2024 [id number]-[id number]-70 ( season) 2025 Imm-Influenza (#1) 2025 06/19/2017, [...] Maintenance Insurance [place] MEDICAID DENT[place] Care Teams Line Ordering Clinician Relationship Specialty Start Date End Date Maren Martel DMD [address] [place] [address] PCP - General 03/24/19
== END 2025-04-12 17:24 | disposition home or self-care (01) ==
LOC: HO.HMCH 16:37
PROVIDERS: PCP Internal Medicine; Visit Provider Internal Medicine
DX: R06.02 Shortness of breath (principal); F17.200 Nicotine dependence, unspecified, uncomplicated

== ENCOUNTER → 2025-04-12 16:36 | Outpatient (BNVA) | payer MEDICARE, MEDICAID, SELFPAY | PROVIDERS: PCP Internal Medicine; Visit Provider Internal Medicine | DX: R06.02 Shortness of breath (principal); J44.9 Chronic obstructive pulmonary disease, unspecified; F41.9 Anxiety disorder, unspecified; F17.210 Nicotine dependence, cigarettes, uncomplicated | CPT/HCPCS: 96127; 99212 ==

== ENCOUNTER 2025-04-21 16:05 | Outpatient (AMB) | payer MEDICARE, MEDICAID, SELFPAY ==
[2025-04-21 16:24] VITALS: BP 100/46; PULSE 86; RESP 18; TEMP 36.1; O2SAT 94; BMI 20.1
--- NOTE | 2025-04-21 16:24 | A.OFFPC_ITS ---
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 Required: No Accompanied by: Self / Same As Patient Allergies No Known Allergies Allergy (Verified 04/21/25 16:32) Tobacco use date assessed: 04/21/25 Fall risk assessment: 1 Fall in past year Last assessed Fall Risk: 04/21/25 Dental Screening Dental Screen Date: 03/22/25 Did you have a dental visit in the last 12 months?: Yes Did you have a dental problem in the last 6 months where you did not have access to dental care?: No Was dental information given to patient?: Patient has dentist [facility] Medical History Right iliac artery stenosis Osteoarthritis Hypercholesterolemia Coronary artery disease Attention deficit disorder Right radial fracture Pulmonary nodule Diabetic nephropathy Carotid stenosis Anxiety and depression Hypertension Type 2 diabetes mellitus with hyperglycemia Lumbar spondylosis Surgical History History of tooth extraction H/O endarterectomy Amputation toe Family History Father Stroke Mother Pancreatic cancer Son Sleep apnea Social History Housing: House Alcohol intake: current Alcohol intake frequency: holidays/special occasions only Alcohol type: wine Patient Tobacco Use Status: Current everyday Tobacco user Tobacco use type: Cigarette Cigarettes Per Day: 3 e-Cigarette/Vaping Use: Never Used Second Hand Smoke Exposure: Yes service: No Current occupational status: unemployed Cognitive needs: No Hearing needs: No Vision needs: Yes Questionnaire Thrive Questionnaire Date Thrive assessed: 12/02/24 I am a: Patient What is your living situation today?: I have a steady place to live Within the past 12 months, did the food you bought not last and you didn't have the money to get more?: I choose not to answer this question Within the past 12 months, did you worry whether your food would run out before you got money to buy more?: Never true Do you have trouble paying for medicines?: No Do you have trouble getting transportation to medical appointments?: No Do you have trouble paying your heating and electricity bill?: No Do you have trouble taking care of your child, family member or friend?: No Do you have trouble with day-to-day activities such as bathing, preparing meals, shopping, managing finances, etc.?: No Are you currently unemployed and looking for a job?: Yes Are you interested in more education?: Yes Please select the resources that you would like help with: None Currently or been in a relationship where the following occur: No concerns reported THRIVE Score: 0 PATRIC-7 AMB Questionnaire PATRIC-7 Date PATRIC - 7 assessed: 12/02/24 Source: Developed by Drs. George Andrew, Marion Vasques, Milad Goncalves and colleagues, with an educational jaylen from [employer]. Physical exam (Primary Care) Vital Signs: Last Vital Signs Temp 96.9 F 04/21/25 16:24 Pulse 86 04/21/25 16:24 Resp 18 04/21/25 16:24 BP 100/46 L 04/21/25 16:24 Pulse Ox 94 04/21/25 16:24 Oxygen Delivery Method Room Air 04/21/25 16:24 BMI result Body Mass Index 20.1 Tobacco/Smoking Status: Tobacco use Status Tobacco use date assessed 04/21/25 04/21/25 16:35 Patient Tobacco Use Status Current everyday Tobacco 04/21/25 16:28 Tobacco use type Cigarette 04/21/25 16:28 e-Cigarette/Vaping Use Never Used 04/21/25 16:28 Thrive Assessment: Date of Thrive Assessment Date Thrive assessed 12/02/24 04/21/25 16:28 Currently or been in a relationship where the following occur: No concerns reported Const General: alert; No acute distress Eyes Conjunctivae: conjunctivae normal Resp Auscultation: clear to auscultation bilaterally Cardio Rate: regular rate Rhythm: regular rhythm GI Inspection: Yes normal to inspection Extrem General: Yes normal to inspection and No edema Coding Level of Care Code Est Pt Level 4 (10337) Complex EM visit Add On G2211 Diagnoses Coronary artery disease involving [place] coronary artery of [place] heart without angina pectoris I25.10 Coronary Disease-Associated Artery/Lesion type: [place] artery [place] vs. transplanted heart: [place] heart Associated angina: without angina Essential hypertension I10 Hypertension type: essential hypertension Hypercholesterolemia E78.00 Type 2 diabetes mellitus with hyperglycemia, without long-term current use of insulin E11.65 Diabetes mellitus terminal gauger insulin use: without [facility] use Closed wedge compression fracture of L2 vertebra, sequela S32.020S Encounter type: sequela Lumbar vertebra fracture level: L2 Fracture type: closed Asthma J45.909 Tobacco abuse Z72.0 Generalized anxiety disorder F41.1 History of nicotine dependence Z87.891 Assessment & Plan Assessment & Plan (1) Coronary artery disease: Code(s): I25.10 - Atherosclerotic heart disease of [place] coronary artery without angina pectoris Category: Medical Qualifiers: Coronary Disease-Associated Artery/Lesion type: [place] artery [place] vs. transplanted heart: [place] heart Associated angina: without angina Qualified Code(s): I25.10 - Atherosclerotic heart disease of [place] coronary artery without angina pectoris Plan: Control the cholesterol, weight, blood pressure, diabetes patient on aspirin 81 mg once a day blood work needs to be done (2) Hypertension: Code(s): I10 - Essential (primary) hypertension Category: Medical Qualifiers: Hypertension type: essential hypertension Qualified Code(s): I10 - Essential (primary) hypertension Plan: Continue with blood pressure medication. Decrease salt intake and exercise on m etoprolol 50 mg once a day (3) Hypercholesterolemia: Code(s): E78.00 - Pure hypercholesterolemia, unspecified Category: Medical Plan: Avoid fried foods, chicken skin, eggs, butter margarine, pastries and meat. Be it pork or beef they have a lot of cholesterol LDL goal of less than 70 and triglyceride of less than 150 on rosuvastatin patient needs blood work and Zetia (4) Type 2 diabetes mellitus with hyperglycemia: Comment: [facility] doctor Code(s): E11.65 - Type 2 diabetes mellitus with hyperglycemia Category: Medical Qualifiers: Diabetes mellitus [facility] insulin use: without terminal gauger use Qualified Code(s): E11.65 - Type 2 diabetes mellitus with hyperglycemia Plan: Decrease the amount of carbohydrate intake, pasta, bread, rice and potatoes are all sugar and that is aside from all the sweet stuff, remember that fruits are good but they are Sweet also. Hemoglobin A1c goal of less than 7.0 patient is on metformin a 1000 mg twice a day Jardiance 25 mg once a day Trulicity 0.75 mg once a week (5) Wedge compression fracture of lumbar vertebra: Comment: May 2022 MR L1 and L2 Code(s): S32.000A - Wedge compression fracture of unspecified lumbar vertebra, initial encounter for closed fracture Category: Medical Qualifiers: Encounter type: sequela Lumbar vertebra fracture level: L2 Fracture type: closed Qualified Code(s): S32.020S - Wedge compression fracture of second lumbar vertebra, sequela Plan: Narcotic pain meds: Is being prescribed with the understanding that these medications are potentially addictive and should be used only when absolutely necessary and must always be secured. Any remaining pills should be safely disposed off appropriately. Patient is advised that narcotics can impaired judgment and one should not drive or operate heavy machinery while taking these medications. Never share these medications with anybody and do not leave them unattended. They will not be replaced under any circumstances. (6) Asthma: Code(s): J45.909 - Unspecified asthma, uncomplicated Category: Medical Plan: Stop smoking patient (7) Tobacco abuse: Comment: still smoking 06/2023 Code(s): Z72.0 - Tobacco use Category: Medical Plan: Patient is strongly advised to stop smoking (8) Generalized anxiety disorder: Comment: Bradley Maradiaga seeing Q 2 months Code(s): F41.1 - Generalized anxiety disorder Category: Medical Plan: Continue with counseling and therapy (9) History of nicotine dependence: Code(s): Z87.891 - Personal history of nicotine dependence Category: Medical Plan History of Present Illness The patient is a 70-year-old female presenting with management of multiple chronic conditions and preventative care. The patient has a history of diabetes mellitus, which has been associated with elevated blood glucose levels, as indicated by an A1c of 6.5% in March 2024. She is currently on a regimen including metformin, Jardiance, and Trulicity to manage her diabetes. Hypertension is another chronic condition for which the patient is being treated with metoprolol. Her blood pressure management is part of her overall cardiovascular health strategy, given her history of coronary artery disease. The patient also has hypercholesterolemia, with a recent cholesterol test in March 2024 showing a level of 46 mg/dL. She is on rosuvastatin and Zetia to manage her cholesterol levels, with a target LDL goal of less than 70 mg/dL. The patient has been diagnosed with nonproliferative diabetic retinopathy with posterior vitreous detachment and a retinal tear, which was identified during an eye examination at [facility]. This condition is a complication of her diabetes, and she is under regular ophthalmologic care. She experienced multifocal pneumonia in February 2025, with a CT angiogram of the chest showing no evidence of pulmonary embolism but confirming the pneumonia. She was treated with antibiotics including azithromycin and amoxicillin, and prednisone was also prescribed. The patient has severe mitral annulus calcification, which was noted on an echocardiogram with an ejection fraction of 60-65%. Smoking is a significant concern, and the patient has been strongly advised to cease smoking to improve her respiratory health and overall prognosis. She reports difficulty breathing at night, which may be exacerbated by her smoking habit. Preventative care measures discussed include the need for a mammogram and bone density screening, as well as ensuring vaccinations are up to date. Health Maintenance - Mammogram and bone density screening recommended - Vaccinations up to date, including pneumonia and RSV vaccines - Smoking cessation strongly advised Social History - Smoking: Patient is a smoker, advised to quit Review of Systems - Respiratory: Reports difficulty breathing at night, denies cough or wheezing - Gastrointestinal: Reports nausea, denies difficulty swallowing Physical Exam Results - Labs: A1c of 6.5% in March 2024 - Imaging: CT angiogram of the chest in February 2025 showed no pulmonary embolism, confirmed multifocal pneumonia - Imaging: Echocardiogram showed severe mitral annulus calcification, EF 60-65% Plan Patient was informed and verbally consented to the use of an ambient scribe for clinic note documentation during this visit. 1. Diabetes Mellitus The patient's diabetes mellitus is managed with metformin, Jardiance, and Trulicity, aiming for an A1c goal of less than 7.0%. Regular monitoring of blood glucose levels and adherence to medication are emphasized to prevent complications such as diabetic retinopathy. 2. Hypertension Hypertension is managed with metoprolol 50 mg once daily, with a focus on maintaining optimal blood pressure to reduce cardiovascular risk. 3. Coronary Artery Disease Management of coronary artery disease includes lifestyle modifications and medication adherence to prevent further cardiac events. 4. Hypercholesterolemia The patient is on rosuvastatin and Zetia to achieve an LDL cholesterol goal of less than 70 mg/dL, with regular lipid panel monitoring. 5. Nonproliferative Diabetic Retinopathy Regular ophthalmologic evaluations are necessary to monitor the progression of nonproliferative diabetic retinopathy and manage any complications such as retinal tears. 6. Multifocal Pneumonia The patient was treated with azithromycin, amoxicillin, and prednisone for multifocal pneumonia, with follow-up imaging to assess resolution. 7. Severe Mitral Annulus Calcification Severe mitral annulus calcification requires monitoring through echocardiograms to assess cardiac function and potential interventions if symptoms worsen. 8. Smoking Cessation The patient is strongly advised to quit smoking to improve respiratory health and reduce the risk of further complications. Discussion Notes During the visit, I discussed with the patient the importance of managing her chronic conditions, including diabetes, hypertension, coronary artery disease, and hypercholesterolemia, through medication adherence and lifestyle modifications. We reviewed the need for regular ophthalmologic evaluations due to her diabetic retinopathy and emphasized the importance of smoking cessation to improve her respiratory health. I also recommended follow-up imaging for her pneumonia and discussed the necessity of preventative screenings such as mammograms and bone density tests. Patient Instructions - Take all medications as prescribed, including metformin, Jardiance, Trulicity, metoprolol, rosuvastatin, and Zetia. - Schedule and attend regular follow-up appointments with your certified phlebotomy technician and primary care provider. - Quit smoking to improve your lung health and reduce the risk of complications. - Complete all recommended screenings, including mammogram and bone density tests. - Monitor blood glucose levels regularly and aim for an A1c of less than 7.0%. Orders: Orders CT chest w IV con Today J18.9 - Pneumonia, unspecified organism XR DEXA axial skeleton Today M81.0 - Age-related osteoporosis without current pathological fracture, S32.020S - Wedge compression fracture of second lumbar vertebra, sequela MM tomosynthesis screening BI Today Z12.31 - Encounter for screening mammogram for malignant neoplasm of breast Referrals Lung Cancer Screening Referral Z87.891 - Personal history of nicotine dependence Medications: New uphdmqwmvbq-bkdowtyor-mibjgxej 200-62.5-25 mcg (Trelegy Ellipta) 1 inh inhalation DAILY 60 ea 5RF J45.909 - Unspecified asthma, uncomplicated Discontinued tiotropium bromide 1.25 mcg/actuation (Spiriva Respimat) Discontinued Reason: Doctor's Order 2 puffs inhalation DAILY 4 grams 1RF fluticasone furoate 100 mcg/actuation (Arnuity Ellipta) Discontinued Reason: Doctor's Order 2 inhalations inhalation Q24H 30 ea 0RF
== END 2025-04-21 17:31 | disposition home or self-care (01) ==
LOC: HO.HMCH 16:06
PROVIDERS: PCP Internal Medicine; Visit Provider Internal Medicine
DX: I25.10 Atherosclerotic heart disease of native coronary artery without angina pectoris (principal); I10 Essential (primary) hypertension; E78.00 Pure hypercholesterolemia, unspecified; E11.65 Type 2 diabetes mellitus with hyperglycemia; S32.020S Wedge compression fracture of second lumbar vertebra, sequela; J45.909 Unspecified asthma, uncomplicated; Z72.0 Tobacco use; F41.1 Generalized anxiety disorder; Z87.891 Personal history of nicotine dependence

== ENCOUNTER → 2025-04-21 16:05 | Outpatient (BNVA) | payer MEDICARE, MEDICAID, SELFPAY | PROVIDERS: PCP Internal Medicine; Visit Provider Internal Medicine | DX: I25.10 Atherosclerotic heart disease of native coronary artery without angina pectoris (principal); I10 Essential (primary) hypertension; E78.00 Pure hypercholesterolemia, unspecified; E11.65 Type 2 diabetes mellitus with hyperglycemia; E11.3299 Type 2 diabetes mellitus with mild nonproliferative diabetic retinopathy without macular edema, unspecified eye; S32.020S Wedge compression fracture of second lumbar vertebra, sequela; J45.909 Unspecified asthma, uncomplicated; J18.9 Pneumonia, unspecified organism; F41.1 Generalized anxiety disorder; Z72.0 Tobacco use; Z79.82 Long term (current) use of aspirin; Z79.84 Long term (current) use of oral hypoglycemic drugs; Z79.899 Other long term (current) drug therapy | CPT/HCPCS: 99212 ==

== ENCOUNTER → 2025-05-15 09:54 | Outpatient (REF) | payer MEDICARE, MEDICAID, SELFPAY ==
--- NOTE | ~2025-05-15 | NM_ITS ---
Lexiscan Myocardial perfusion study Indication: Preoperative cardiovascular risk stratification Technique: The patient was brought in for a Lexiscan perfusion study on 05/15/2025 and was injected 0.4 mg of Lexiscan intravenously. Within a minute of this injection 25 mCi of sestamibi was given intravenously. Images were obtained using the SPECT gamma camera interlaced with the gating device. Images were obtained in supine position. Resting perfusion study was performed on 05/16/2025. Patient was administered 25 mCi of sestamibi intravenously at rest. Images were then obtained in supine position. Images obtained without without CT attenuation. Total DLP 79 mGy-cm. Images were processed with the software and compared side to side in short axis, horizontal long axis and vertical long axis views. Findings: Stress and rest perfusion study are suboptimal due to intense subdiaphragmatic uptake within the liver and the stomach which seems to be interfering with myocardial uptake mostly in the inferior wall but affects overall myocardial counts The stress perfusion study showed nonattenuated images show mildly reduced uptake in the basal inferolateral as well as septal wall of the LV myocardium. There is limited evaluation of the basal inferior wall of the LV myocardium. Attenuated corrected images show diffusely reduced uptake in all segments and moderately reduced uptake in the apex with preserved uptake in the mid inferior wall however this could be related to subdiaphragmatic uptake interfering with inferior wall uptake. The gated study shows normal LV systolic function with visually estimated LVEF of greater than 55%. LV cavity is mildly dilated in size. The gated study shows reduced wall thickening and contraction of basal inferior and inferolateral segments. Resting study shows nonattenuated images show improved uptake in the basal inferolateral as well as anteroseptal suggestive wall ischemia. Attenuated corrected images show improved uptake in all segments.. Gating at rest reveals basal inferior and inferolateral wall motion normality with ejection fraction at greater than 55%. The findings are consistent with possible reversible defect especially of the basal inferolateral and anteroseptal suggestive of ischemia. More extensive ischemia cannot be ruled out on this study due to the suboptimal nature of the study due to subdiaphragmatic uptake NM/NM curry perf SPECT rest & str Impression: 1. Myocardial perfusion imaging study shows basal inferolateral and anteroseptal ischemia 2. Gated LVEF is greater than 55% 3. Transient ischemic dilatation visually present Nondiagnostic changes on EKG. Electronically signed by: Scott Cooper MD 05/17/2025 03:52 PM ERIKA
--- NOTE | 2025-05-15 09:57 | CA_ITS ---
Acquisition Time: 2025-05-15 10:24:32 Total Exercise Time: 00:02:00 Test Indications: CAD,Pre-Op Evaluation Medications: SEE H&P Protocol: LEXISCAN Max HR: 99 BPM 66% of Pred: 148 BPM Max BP: 102/62 mmHG Max Work Load: 1.0 METS Pharmacological stress test with Lexiscan while pt marches in her chair,w ith reports of SOB, without any arrythmias, with normotensive response to injection. Nondiagnostic EKG for ischemia. In recovery, pt treated with IVP Aminophylline 75mg to reverse Lexiscan after which pt slowly feeling back to baseline. Nuclear images pending. Test reviewed with Dr. Stone. Referred By: Scott Cooper Electronically Signed By: Rubén Licona
--- OUTSIDE RECORDS SUMMARY | 2025-05-15 11:38 | XMS_ITS | Clinical Summary ---
Author Organization [facility] Address [address] [place] [id number] Phone Care Team Providers Care Agriculture Inspector Name Role Phone Unavailable Primary Care Provider [...] VACCINE (#1) 2025 COVID-19 VACCINE ( - 2024-2 6 season) 2025 RSV VACCINE (1 - 1-dose [...] It is not the complete legal health record.[facility]
--- OUTSIDE RECORDS SUMMARY | 2025-05-15 11:39 | XMS_ITS | Clinical Summary ---
Author Organization [facility] Address [address] [address] Phone Care Team Providers Care Billet Assembler Name Role Phone Unavailable Primary Care Provider [...] Insurance Medicaid [place] Aetna MCR Adv PPO ([id number])
--- OUTSIDE RECORDS SUMMARY | 2025-05-15 11:39 | XMS_ITS | Patient Health Record ---
Author Organization [facility] Address [address] [facility] [place] [address] Care Team Providers Care Mask Former Name Role Phone Diandra Grady Primary Care Provider Unavailabl e Black, Camryn Unavailable [phone] Reason For Referral No Information Medications Medication [...] Problem Acquired hammer toe of right foot ([id number] ) Other hammer toe(s) (acquired), right foot (M20.41) Active confirmed Problem Acquired hammer toe of left foot ([id number] ) Other hammer toe(s) (acquired), left foot (M20.42) Active confirmed Problem Polyneuropathy due to type 2 diabetes mellitus (416615768) Type 2 diabetes mellitus with diabetic polyneuropathy (E11.42) Active confirmed Encounters Encounter Location Date Provider Diagnosis [facility] [address] 09/06/2024 [facility] [address] [address] 10/27/2024 Camryn Lazaro [facility] [address] [address] 02/14/2025 Camryn Lazaro [facility] [address] 03/01/2025 Camryn Lazaro Plan Of Treatment Pending Test Test Name Order Date [id number] NAIL, 6 OR MORE 10/09/2015 [id number] NAIL, 6 OR MORE 11/01/2015 [id number]-[id number] NAIL, 6 OR MORE 01/02/2017 [id number] NAIL, 6 OR MORE 08/10/2017 [id number] NAIL, 1-5 12/25/2015 [id number] NAIL, 1-5 01/09/2016 48253- Debride <25 sq cm 10/09/2015 [id number]-SORIZPR SKIN/TISSUE 01/09/2016 [id number] SKIN/TISSUE 11/01/2015 [id number] SKIN/TISSUE 11/29/2015 19957-[id number] SKIN/TISSUE 12/25/2015 99323-LXSW SKIN LESIONS, OVER 4 01/03/20 17 66586-YMWR SKIN LESIONS, OVER 4 08/10/19 18 82524-LRVN SKIN LESIONS, 2 TO 4 10/09/19 16 Insurance Providers Payer Name Payer Address Payer Phone Subscriber Number Group Number Insured Name Patient Relationship to Insured Coverage Start Date Coverage End Date AARP Medicare Complete [address] [address] [place] [address] [phone] [id number] Lena Bill Self - patient is the insured Medical (General) History Medical History History ICD Code Anxiety Arthritis Cataracts Depression type II diabetes Neuropathy High blood pressure Headaches Psychiatric disorder Back,Hip,and Knee pain Reflux Measles Mumps Chicken pox Surgical History Surgery Date(Month/Year) Stent at [facility] 11-23-2015 Hospitalization History Reason Date(Month/Year) [facility] - stent iliac artery & amputati on of toe 12/2015 [facility] Left Carotid artery 07/21/17
--- OUTSIDE RECORDS SUMMARY | 2025-05-15 11:39 | XMS_ITS | Clinical Summary ---
Author Organization [facility] [address] [facility] Address [address] [place] [address] Phone Care Team Providers Care Production Helper Name Role Phone Diandra Grady MD Primary Care Provider [phone] Allergies No known active allergies Medications Trulicity [...] Coronary artery disease with angina pectoris ([facility] V24) 05/23/2024 ADD (attention deficit disorder) 05/23/2024 Type 2 diabetes mellitus ([facility] [place] [facility] [place] 05/23/2024 Neuropathy associated with endocrine disorder (C NM/[facility] V24) 05/23/2024 Bilateral carotid artery stenosis 05/23/2024 Primary hypertension 05/23/2024 Anxiety 05/23/2024 Depression 05/23/2024 Chronic low back pain 05/23/2024 Surgical History Surgery Date Site/Laterality Comments TOE AMPUTATION CAROTID ENDARTERECTOMY COLONOSCOPY 07/01/2016 nl, tics, hemorrhoids ESOPHAGOGASTRODUODENOSCOPY 07/01/2016 nl CHOLECYSTECTOMY Medical History Medical History Date Comments GERD (gastroesophageal reflux disease) Irritable bowel syndrome with diarrhea HTN (hypertension) Diabetes ([facility] [place], [facility] [place] Hyperlipidemia Chronic back pain PVD (peripheral vascular disease) [place] [place] Family History Medical [...] RSV Immunization Adult Patients (1 - Risk 50-74 years 1-dose series) 2003 Zoster Vaccines (2 of 2) 05/14/2018 03/19/2018 Cholesterol Screening (Lipid Panel) 06/11/2022 Falls Risk Assessment 06/11/2022 Hepatitis C Screening 06/11/2022 Medicare Annual Wellness Visit 06/11/2022 Osteoporosis Screening (Bone Density Screening) 06/11/2022 Social Influencers of Health Screening 06/11/2022 Diabetes: Annual Urine Albumin-Creatinine Ratio (uACR) 05/23/2024 Diabetes: Blood Sugar Control Test (HGBA1C) 05/23/2024 Depression Screening 07/13/2024 Influenza Vaccine (#1) 2025 , 05/06/2022, 05/29/2021, [...] 02/15/2018, Additional history exists COVID-19 Vaccine Completed 03/04/2025, 12/2023, 06/11/2022, Additional history exists HIB Vaccines Aged Out [...] 4:32 PM [facility] Potassium 4.4 3.5 - [...] [facility] Comment:Calculation based on the Chronic Kidney [...] 4:32 PM EST [facility] Alkaline Phosphatase 76 42 - 121 unit/L LAB CHEMISTRY METHOD 08/25/2024 4:32 PM [facility] Total Protein 6.8 6.0 - 8.0 g/dL LAB CHEMISTRY METHOD 08/25/2024 4:32 PM [facility] Albumin 3.5 3.2 - 5.0 g/dL LAB CHEMISTRY METHOD 08/25/2024 4:32 PM [facility] Total Bilirubin 0.3 0.0 - 1.4 mg/dL LAB CHEMISTRY METHOD 08/25/2024 4:32 PM [facility] Blood Venous blood specimen / Unknown Venipuncture / Unknown 08/25/2024 3:19 PM EST 08/25/2024 3:58 PM EST Eryn Lauren RULES EXAMINER LAB BLOOD ORDERABLES Final Re sult [facility] [address] [place] [address], * COLONOSCOPY (07/01/2016 9:36 AM EST) Anatomical Region Laterality Modality Endoscopy Historical Provider GI~PROCEDURE ORDERABLES F inal Result from Last 3 Months or Most Recently Relevant to Health Maintenance Insurance [employer] MEDICARE ADVANTAGE MEDICAID - [place] Care Teams Production Helper Relationship Specialty Start Date End Date Diandra Grady MD [address] [place] [address] [address] [facility] [place] [address] PCP - General Internal Medicine 07/15/21
== END ==
LOC: HO.CARD 09:54
PROVIDERS: PCP Internal Medicine; Visit Provider Internal Medicine Cardiovascular Disease
DX: Z01.810 Encounter for preprocedural cardiovascular examination (principal)
CPT/HCPCS: 78452; 93017; A9500; J0280; J2785

== ENCOUNTER → 2025-05-15 09:57 | Outpatient (BNV) | payer MEDICARE, MEDICAID, SELFPAY | PROVIDERS: PCP Internal Medicine | DX: Z01.818 Encounter for other preprocedural examination (principal) | CPT/HCPCS: 78452; 93016; 93018 ==

== ENCOUNTER 2025-05-17 15:33 | Outpatient (AMB) | payer MEDICARE, MEDICAID, SELFPAY ==
[2025-05-17 15:43] VITALS: BP 130/60; PULSE 88; O2SAT 94; BMI 20.4
--- NOTE | 2025-05-17 15:43 | MHC.OFFVIS ---
Vital Signs 05/17/25 15:43 Height 5 ft 7 in Weight 130 lb 1.164 oz BMI 20.4 BP 130/60 Blood Pressure Location Lt brachial Position Sitting Pulse 88 Pulse Source Pulse Oximeter Pulse Oximetry (%) 94 Oxygen Delivery Method Room Air Intake Visit Reasons: Shortness of breath Intake Note: pt is here for shortness of breath, was recently in [facility] for pneumonia about 2-3 weeks ago, and now short of breath anytime. Cloth Finishing Range Back Tender Required: No Allergies No Known Allergies Allergy (Verified 05/17/25 16:23) Medication List - Last Reconciled 05/17/25 by Mateus Grullon MD albuterol sulfate 90 mcg/actuation (Ventolin HFA) 2 puffs inhalation Q6H PRN alprazolam 2 mg PO BID-TID PRN aspirin (Adult Low Dose Aspirin) 81 mg PO DAILY atomoxetine 25 mg PO QAM atomoxetine 60 mg PO QAM azithromycin For 250 mg dose pack: take 500 mg today (day 1), then 250 mg for 4 days (days 2-5) PO blood sugar diagnostic As directed check blood sugars q.day blood-glucose meter As directed blood-glucose sensor ([employer] G7 Sensor device) As directed blood-glucose,sample supervisor,cont ([employer] G7 [employer] French Teacher) As directed diphenoxylate-atropine 2.5-0.025 mg tabs PO BID dulaglutide 0.75 mg (0.5 mL) subcut QWEEK 30 days empagliflozin 25 mg PO QAM ezetimibe (Zetia) 10 mg PO DAILY 30 days flash glucose scanning reader ([employer] [place]) As directed flash glucose sensor (FreeStyle [place] 2 Sensor kit) As directed tsaqpumvixg-slydeupze-duzujyfl 200-62.5-25 mcg (Trelegy Ellipta) 1 inh inhalation DAILY hydroxyzine HCl 25 mg PO DAILY hydroxyzine HCl mg PO BEDTIME lancets As directed loperamide 2 mg PO TID metformin ER 1,000 mg (2 x 500 mg) PO BID metoprolol succinate ER (Toprol XL) 50 mg PO DAILY mupirocin 2% 1 appl topical 3XW naloxone 4 mg/actuation (Narcan) 4 mg intranasal Q3M PRN nicotine 1 patch transdermal DAILY nitroglycerin 0.4 mg PO Every 5 minutes x3; omeprazole 40 mg PO DAILY ondansetron 8 mg PO Q8H PRN oxycodone 15 mg PO Q6H PRN 30 days pen needle, diabetic As directed rosuvastatin 40 mg PO DAILY 30 days trazodone 50 mg PO BEDTIME PRN varenicline tartrate (Chantix Starting Month Box) PO PER PKG DIR Do you need a note to return to daycare/school/sports/work: No HPI HPI Shortness of breath: Details: This 70 years old female, with advanced chronic obstructive pulmonary disease, his recently treated at [facility] for an acute exacerbation of COPD/respiratory failure. She spent almost 2 weeks in the hospital, now discharged home and she was referred for pulmonary evaluation and ongoing management. She is very pleasant, with chronic anxiety syndrome, she is weak and frail, and somewhat short of breath during conversation . In addition to chronic obstructive pulmonary disease she does have multiple comorbidities as listed in her discharge diagnosis, [facility] . She has history of smoking 1 pack a day for more than 40 years, and now since her last admission she has cut down to 3 cigarettes a day. She say is that she has been in annual lung screening program but I do not see any evidence of a CAT scan being done. She claims that she is scheduled to have CT scan of the chest next week. Since her discharge home her medical regimen has been modified. She is supposed to be on Trelegy Ellipta, 1 inhalation daily as well as she was prescribed nebulizer and ipratropium-albuterol solution to use 3-4 . times a day. She does seem to be somewhat confused about the respiratory meds and she claims she tells me that she does not have a nebulizer at home. She is not on oxygen therapy. She has been on prednisone taper which she is done with, and is requesting that she should be kept on prednisone otherwise she gets worse. She lives here in [place], with her significant other as well as her son and nephew who look after her. [facility] Medical History Anxiety COPD (chronic obstructive pulmonary disease) Right iliac artery stenosis Osteoarthritis Hypercholesterolemia Coronary artery disease Attention deficit disorder Right radial fracture Pulmonary nodule Diabetic nephropathy Carotid stenosis Anxiety and depression Hypertension Type 2 diabetes mellitus with hyperglycemia Lumbar spondylosis Surgical History History of tooth extraction H/O endarterectomy Amputation toe Family History Father Stroke Mother Pancreatic cancer Son Sleep apnea Social History Housing: House Alcohol intake: current Alcohol intake frequency: holidays/special occasions only Alcohol type: wine Patient Tobacco Use Status: Current everyday Tobacco user Tobacco use type: Cigarette Cigarettes Per Day: 3 e-Cigarette/Vaping Use: Never Used Second Hand Smoke Exposure: Yes service: No Current occupational status: unemployed Cognitive needs: No Hearing needs: No Vision needs: Yes Review of Systems Const All systems reviewed & are unremarkable except as noted in HPI and below Eyes Reports no additional complaints ENT Reports nasal congestion (Mild off and on) Card Denies chest pain at rest and Denies irregular heart rhythm Resp Reports as per HPI GI Reports heartburn (Controlled with omeprazole) Reports no additional complaints Musc Reports muscle weakness (Generalized) Skin/Breast Reports system reviewed and no additional complaints, except as documented Neuro Reports no additional complaints Psych Reports anxiety Endo Reports other (Diabetes mellitus) Jerome/Lymph Reports no additional complaints Aller/Immun Reports no additional complaints Physical Exam Exam Exam: Patient is frail looking, of a thin build, and anxious but soft spoken Vital Signs: Last Vital Signs Pulse 88 05/17/25 15:43 BP 130/60 05/17/25 15:43 Pulse Ox 94 05/17/25 15:43 Oxygen Delivery Method Room Air 05/17/25 15:43 BMI result Body Mass Index 20.4 Const General: comfortable, no acute distress, alert and awake Orientation/consciousness: patient oriented x3 HEENT Head: Yes normal to inspection General nose exam: No nasal polyps present and No nasal discharge present Face and sinus: Yes sinuses nontender Mouth: oropharynx normal Throat: Yes posterior oropharynx normal Eyes General: appearance normal, both eyes and all related structures Neck Neck: Yes normal visual inspection, Yes no lymphadenopathy, Yes trachea midline and Yes no JVD Thyroid: Thyroid normal Chest Chest palpation & inspection: normal inspection of the chest, normal palpation of entire chest wall and no tenderness Resp Other: Chest is thin and symmetrical. Percussion note resonant Breath sounds are generally distant with prolonged expiratory phase. No crepitations or wheezes are heard today. Cardio Palpation: normal PMI Rate: regular rate Rhythm: regular rhythm Heart sounds: no gallops and no murmurs GI Palpation (GI): Soft to palpation, nontender, No hepatosplenomegaly present and no masses Auscultation: normal bowel sounds Back/Spine/Pelvis Thoracic/Lumbar Spine: thoracic and lumbar spine normal to inspection Skin General skin exam: no rashes or lesions noted Neuro General: patient oriented x3 and no focal motor deficits Cranial nerves: Yes CN's II-XII intact bilaterally Extrem General: Yes normal to inspection, Yes no clubbing, cyanosis or edema and Yes no calf tenderness Psych Speech and movement: Normal speech and movement present Affect: Anxious affect present Results Reviewed Results Reviewed: Discharge note from [facility] is reviewed List of her medications reviewed Report of chest x-ray on 04/30/2025 at [facility], reviewed and it states that there is no acute abnormality but patient has findings of chronic obstructive pulmonary disease Assessment & Plan Assessment & Plan (1) COPD (chronic obstructive pulmonary disease): Comment: She does have chronic obstructive pulmonary disease. Recently treated for acute exacerbation at [facility]. She is somewhat confused about the medications. Code(s): J44.9 - Chronic obstructive pulmonary disease, unspecified Category: Medical Plan: I clarified the list of her current medical regimen. Advised the following : Continue Trelegy Ellipta 1 inhalation daily, Ipratropium-albuterol solution 1 while in the nebulizer Q 6 hours while awake , it will be made p.r.n.. Albuterol HFA 2 puffs Q. 4-6 hours p.r.n. when outdoors Prednisone 5 mg on alternate days for the time being and later on as she remains stable we will try to taper her off this. She needs lot of reassurance and ongoing supervision. (2) Tobacco abuse: Comment: Patient has longstanding history of smoking 1 pack of cigarettes a day, for more than 40 years. Currently smoking 3 cigarettes a day. Says that she can not quit completely. Code(s): Z72.0 - Tobacco use Category: Medical Plan: I did discuss with her that she should quit completely, and she will try to cut down to just 2 cigarettes a day. She states that she is scheduled to have CT scan of the chest next week, I will see the results. (3) Anxiety: Comment: She has history of anxiety for long time and she has been using alprazolam 2 mg b.i.d. p.r.n.. This is relatively larger dose. But she does not seem to be overly sedated at this time Code(s): F41.9 - Anxiety disorder, unspecified Category: Medical Plan: She may continue to use alprazolam 2 mg b.i.d. p.r.n.. And gradually should be reduced to 1 mg p.r.n.. Medications: New prednisone 5 mg PO Q OTHER DAY 30 tabs 1RF copd 60 days ipratropium-albuterol 0.5 mg-3 mg(2.5 mg base)/3 mL 3 mL inhalation Q4-6H PRN 180 mL 2RF COPD wheezing 30 days J44.9 - Chronic obstructive pulmonary disease, unspecified Coding Level of Care Code New Pt Level 4 (05798) Diagnoses COPD (chronic obstructive pulmonary disease) J44.9 Tobacco abuse Z72.0 Anxiety F41.9
--- NOTE | 2025-05-17 16:22 | A.OFFVIS_ITS ---
Vital Signs 05/17/25 15:43 Height 5 ft 7 in Weight 130 lb 1.164 oz BMI 20.4 BP 130/60 Blood Pressure Location Lt brachial Position Sitting Pulse 88 Pulse Source Pulse Oximeter Pulse Oximetry (%) 94 Oxygen Delivery Method Room Air Intake Visit Reasons: Shortness of breath Allergies No Known Allergies Allergy (Verified 05/17/25 16:23) Medication List - Last Reconciled 05/17/25 by Mateus Grullon MD albuterol sulfate 90 mcg/actuation (Ventolin HFA) 2 puffs inhalation Q6H PRN alprazolam 2 mg PO BID-TID PRN aspirin (Adult Low Dose Aspirin) 81 mg PO DAILY atomoxetine 25 mg PO QAM atomoxetine 60 mg PO QAM azithromycin For 250 mg dose pack: take 500 mg today (day 1), then 250 mg for 4 days (days 2-5) PO blood sugar diagnostic As directed check blood sugars q.day blood-glucose meter As directed blood-glucose sensor ([employer] G7 Sensor device) As directed blood-glucose,geophysics professor,cont ([employer] G7 Industrial Engineering Technologist) As directed diphenoxylate-atropine 2.5-0.025 mg tabs PO BID dulaglutide 0.75 mg (0.5 mL) subcut QWEEK 30 days empagliflozin 25 mg PO QAM ezetimibe (Zetia) 10 mg PO DAILY 30 days flash glucose scanning reader ([employer] Mich 2 [place]) As directed flash glucose sensor ([employer] Mich 2 Sensor kit) As directed obeststjiwv-ocjifcypl-qogjqebp 200-62.5-25 mcg (Trelegy Ellipta) 1 inh inhalation DAILY hydroxyzine HCl 25 mg PO DAILY hydroxyzine HCl mg PO BEDTIME lancets As directed loperamide 2 mg PO TID metformin ER 1,000 mg (2 x 500 mg) PO BID metoprolol succinate ER (Toprol XL) 50 mg PO DAILY mupirocin 2% 1 appl topical 3XW naloxone 4 mg/actuation (Narcan) 4 mg intranasal Q3M PRN nicotine 1 patch transdermal DAILY nitroglycerin 0.4 mg PO Every 5 minutes x3; omeprazole 40 mg PO DAILY ondansetron 8 mg PO Q8H PRN oxycodone 15 mg PO Q6H PRN 30 days pen needle, diabetic As directed rosuvastatin 40 mg PO DAILY 30 days trazodone 50 mg PO BEDTIME PRN varenicline tartrate (Chantix Starting Month Box) PO PER PKG DIR Do you need a note to return to daycare/school/sports/work: No HPI HPI Shortness of breath: Details: This 70 years old frail and anxious lady, is being seen for the 1st time for pulmonary management. She was recently admitted to [facility] [place] and treated for an acute exacerbation of COPD. Discharged home on 05/01/2025. She is on a long list of medications and has some confusion about what she should be using. Anyway at present she has mild intermittent cough, and she gets short of breath on minimal exertion. Otherwise she seems to be doing well and stable She does have history of chronic obstructive pulmonary disease for a few years, She is not sure but tells me that she was admitted once before about a year ago with the same thing. She has been a heavy smoker throughout her adult life but since 1 year ago she has cut down to 3 cigarettes a day. [facility] is reviewed. [facility] Medical History (Updated 05/17/25 @ 16:39 by Mateus Grullon MD) Anxiety COPD (chronic obstructive pulmonary disease) Right iliac artery stenosis Osteoarthritis Hypercholesterolemia Coronary artery disease Attention deficit disorder Right radial fracture Pulmonary nodule Diabetic nephropathy Carotid stenosis Anxiety and depression Hypertension Type 2 diabetes mellitus with hyperglycemia Lumbar spondylosis Surgical History History of tooth extraction H/O endarterectomy Amputation toe Family History Father Stroke Mother Pancreatic cancer Son Sleep apnea Social History Housing: House Alcohol intake: current Alcohol intake frequency: holidays/special occasions only Alcohol type: wine Patient Tobacco Use Status: Current everyday Tobacco user Tobacco use type: Cigarette Cigarettes Per Day: 3 e-Cigarette/Vaping Use: Never Used Second Hand Smoke Exposure: Yes service: No Current occupational status: unemployed Cognitive needs: No Hearing needs: No Vision needs: Yes Review of Systems Const All systems reviewed & are unremarkable except as noted in HPI and below Eyes Reports no additional complaints ENT Reports no additional complaints Card Denies chest pain, Denies syncope, Denies irregular heart rhythm and Denies leg edema Resp Reports as per HPI GI Reports no additional complaints Neuro Denies syncope Physical Exam Vital Signs: Last Vital Signs Pulse 88 05/17/25 15:43 BP 130/60 05/17/25 15:43 Pulse Ox 94 05/17/25 15:43 Oxygen Delivery Method Room Air 05/17/25 15:43 BMI result Body Mass Index 20.4 Const General: comfortable, no acute distress, alert, awake and anxious Orientation/consciousness: patient oriented x3 HEENT Head: Yes normal to inspection General nose exam: No nasal polyps present and No nasal discharge present Face and sinus: Yes sinuses nontender Mouth: oropharynx normal Throat: Yes posterior oropharynx normal Eyes General: appearance normal, both eyes and all related structures Neck Neck: Yes normal visual inspection, Yes no lymphadenopathy, Yes trachea midline and Yes no JVD Thyroid: Thyroid normal Chest Chest palpation & inspection: normal inspection of the chest, normal palpation of entire chest wall and no tenderness Resp Other: Percussion note hyper-resonant. Breath sounds are distant on both sides with. Prolonged expiratory phase No wheezes or rhonchi are heard at this time. Cardio Palpation: normal PMI Rate: regular rate Rhythm: regular rhythm Heart sounds: no gallops and no murmurs GI Palpation (GI): Soft to palpation, nontender, No hepatosplenomegaly present and no masses Auscultation: normal bowel sounds Back/Spine/Pelvis Thoracic/Lumbar Spine: thoracic and lumbar spine normal to inspection Skin General skin exam: no rashes or lesions noted Neuro General: patient oriented x3 and no focal motor deficits Cranial nerves: Yes CN's II-XII intact bilaterally Extrem General: Yes normal to inspection, Yes no clubbing, cyanosis or edema and Yes no calf tenderness Psych Appearance: grossly normal and well kempt Speech and movement: Normal speech and movement present Affect: Anxious affect present Results Reviewed Results Reviewed: Discharge summary from recent hospitalization at [facility] is revealed. List of medications reviewed with the patient. Assessment & Plan Assessment & Plan (1) Tobacco abuse: Comment: still smoking 06/2023, patient has longstanding history of smoking 1 pack of cigarettes a day, for more than 40 years. Currently smoking 3 cigarettes a day. Code(s): Z72.0 - Tobacco use Category: Medical Plan: I talked to her and advised that his best for her to stop smoking completely. But considering that she has significant anxiety disorder I think it is going to be impossible for her to stop completely. She told me that she is scheduled to have CT scan of the chest next week. (2) COPD (chronic obstructive pulmonary disease): Comment: She does have chronic obstructive pulmonary disease. Recently treated for acute exacerbation. She is somewhat confused about the medications. Code(s): J44.9 - Chronic obstructive pulmonary disease, unspecified Category: Medical Plan: I clarified her list of medication that she should be using, and is as follows Trelegy Ellipta 1 inhalation daily. Ipratropium-albuterol solution in the nebulizer Q 6 hours p.r.n. when at home. Albuterol HFA 2 puffs Q 4-6 hours p.r.n. when she is outdoors. We provided her with a nebulizer from the office. She request to use prednisone 5 mg once a day, ( apparently she has been using it for a while) I told her that the best thing would be to come of prednisone but for the time being I will prescribe 5 mg on alternate days. As soon as she is more stable she she should have pulmonary function test for documentation (3) Anxiety: Comment: She has history of anxiety for long time and she has been using alprazolam 2 mg b.i.d. p.r.n. Code(s): F41.9 - Anxiety disorder, unspecified Category: Medical Plan: Continue the same medication but I counseled her to use it only as needed Coding Level of Care Code New Pt Level 4 (26636) Diagnoses Tobacco abuse Z72.0 COPD (chronic obstructive pulmonary disease) J44.9 Anxiety F41.9
--- OUTSIDE RECORDS SUMMARY | 2025-05-17 18:25 | XMS_ITS | Patient Health Record ---
Author Organization [facility] Address [address] [place] [address] Care Team Providers Care Energy Infrastructure Engineer Name Role Phone Diandra Grady Primary Care Provider Unavailabl e Black, Camryn Unavailable [phone] Reason For Referral No Information Medications Medication [...] Problem Acquired hammer toe of right foot ([id number] ) Other hammer toe(s) (acquired), right foot (M20.41) Active confirmed Problem Acquired hammer toe of left foot (4776923293382037 ) Other hammer toe(s) (acquired), left foot (M20.42) Active confirmed Problem Polyneuropathy due to type 2 diabetes mellitus (051645232) Type 2 diabetes mellitus with diabetic polyneuropathy (E11.42) Active confirmed Encounters Encounter Location Date Provider Diagnosis [facility] [address] 09/06/2024 [facility] [address] [address] 10/27/2024 Camryn Lazaro [facility] [address] [address] 02/14/2025 Camryn Lazaro [facility] [address] 03/01/2025 Camryn Lazaro Plan Of Treatment Pending Test Test Name Order Date [id number] NAIL, 6 OR MORE 10/09/2015 [id number] NAIL, 6 OR MORE 11/01/2015 [id number] NAIL, 6 OR MORE 01/02/2017 [id number] NAIL, 6 OR MORE 08/10/2017 [id number] NAIL, 1-5 12/25/2015 [id number] NAIL, 1-5 01/09/2016 84693- Debride <25 sq cm 10/09/2015 [id number] SKIN/TISSUE 01/09/2016 [id number] SKIN/TISSUE 11/01/2015 [id number] SKIN/TISSUE 11/29/2015 [id number] SKIN/TISSUE 12/25/2015 [id number] SKIN LESIONS, OVER 4 01/03/20 17 [id number]-[id number] SKIN LESIONS, OVER 4 08/10/19 18 [id number] SKIN LESIONS, 2 TO 4 10/09/19 16 Insurance Providers Payer Name Payer Address Payer Phone Subscriber Number Group Number Insured Name Patient Relationship to Insured Coverage Start Date Coverage End Date A[employer] Medicare Complete [address] [address] [place] [address] [phone] [id number] Lena Bill Self - patient is the insured Medical (General) History Medical History History ICD Code Anxiety Arthritis Cataracts Depression type II diabetes Neuropathy High blood pressure Headaches Psychiatric disorder Back,Hip,and Knee pain Reflux Measles Mumps Chicken pox Surgical History Surgery Date(Month/Year) Stent at [facility] 11-23-2015 Hospitalization History Reason Date(Month/Year) [facility] - stent iliac artery & amputati on of toe 12/2015 [facility] Left Carotid artery 07/21/17
--- OUTSIDE RECORDS SUMMARY | 2025-05-17 18:25 | XMS_ITS | Clinical Summary ---
Author Organization [facility]. Address [address] [address] Phone Care Team Providers Care Fiction And Nonfiction Prose Writer Name Role Phone Unavailable Primary Care Provider [...] Insurance Medicaid [place] [employer] MCR Adv PPO ([id number])
--- OUTSIDE RECORDS SUMMARY | 2025-05-17 18:25 | XMS_ITS | Clinical Summary ---
Author Organization [facility] Address [address] [place] [id number] Phone Care Team Providers Care Gem Carver Name Role Phone Unavailable Primary Care Provider [...] It is not the complete legal health record.[facility]
--- OUTSIDE RECORDS SUMMARY | 2025-05-17 18:25 | XMS_ITS | Clinical Summary ---
Author Organization [facility] [address] [facility] Address [address] [place] [address] Phone Care Team Providers Care Buckle Attacher Name Role Phone Diandra Grady MD Primary Care Provider [phone] Allergies No known active allergies Medications Trulicity [...] Coronary artery disease with angina pectoris ([facility] V24) 05/23/2024 ADD (attention deficit disorder) 05/23/2024 Type 2 diabetes mellitus ([facility] V24, [facility] V 28) 05/23/2024 Neuropathy associated with endocrine disorder ([facility] V24) 05/23/2024 Bilateral carotid artery stenosis 05/23/2024 Primary hypertension 05/23/2024 Anxiety 05/23/2024 Depression 05/23/2024 Chronic low back pain 05/23/2024 Surgical History Surgery Date Site/Laterality Comments TOE AMPUTATION CAROTID ENDARTERECTOMY COLONOSCOPY 07/01/2016 nl, tics, hemorrhoids ESOPHAGOGASTRODUODENOSCOPY 07/01/2016 nl CHOLECYSTECTOMY Medical History Medical History Date Comments GERD (gastroesophageal reflux disease) Irritable bowel syndrome with diarrhea HTN (hypertension) Diabetes ([facility] V24, [facility] V28) Hyperlipidemia Chronic back pain PVD (peripheral vascular disease) ([facility] V[facility]) Family History Medical History Relation Name [...] 4:32 PM [facility] Potassium 4.4 3.5 - 5.5 [...] [facility] Comment:Calculation based on the Chronic [...] LAB CHEMISTRY METHOD 08/25/2024 4:32 PM EST [facility] Alkaline Phosphatase 76 42 - 121 unit/L LAB CHEMISTRY METHOD 08/25/2024 4:32 PM [facility] Total Protein 6.8 6.0 - 8.0 g/dL LAB CHEMISTRY METHOD 08/25/2024 4:32 PM [facility] Albumin 3.5 3.2 - 5.0 g/dL LAB CHEMISTRY METHOD 08/25/2024 4:32 PM [facility] Total Bilirubin 0.3 0.0 - 1.4 mg/dL LAB CHEMISTRY METHOD 08/25/2024 4:32 PM [facility] Blood Venous blood specimen / Unknown Venipuncture / Unknown 08/25/2024 3:19 PM EST 08/25/2024 3:58 PM EST Eryn Lauren [employer] LAB BLOOD ORDERABLES Final Re sult [facility] [address] [place] [address], * COLONOSCOPY (07/01/2016 9:36 AM EST) Anatomical Region Laterality Modality Endoscopy Historical Provider GI~PROCEDURE ORDERABLES F inal Result from Last 3 Months or Most Recently Relevant to Health Maintenance Insurance [employer] MEDICARE ADVANTAGE [place]ICAID - [place] Care Teams Buckle Attacher Relationship Specialty Start Date End Date Diandra Grady MD [address] [place] [address] [address] [facility] [place] [address] PCP - General Internal Medicine 07/15/21
== END 2025-05-17 16:20 | disposition home or self-care (01) ==
LOC: HO.HPS 15:33
PROVIDERS: PCP Internal Medicine; Visit Provider Internal Medicine
DX: J44.9 Chronic obstructive pulmonary disease, unspecified (principal); Z72.0 Tobacco use; F41.9 Anxiety disorder, unspecified
CPT/HCPCS: 99204

== ENCOUNTER → 2025-05-17 15:33 | Outpatient (BNVA) | payer MEDICARE, MEDICAID, SELFPAY | PROVIDERS: PCP Internal Medicine; Visit Provider Internal Medicine | DX: R06.02 Shortness of breath (principal); J44.9 Chronic obstructive pulmonary disease, unspecified; F41.9 Anxiety disorder, unspecified; Z72.0 Tobacco use | CPT/HCPCS: 99202 ==

== ENCOUNTER 2025-05-19 15:56 | Outpatient (AMB) | payer MEDICARE, MEDICAID, SELFPAY ==
[2025-05-19 16:05] VITALS: BP 120/58; PULSE 104; TEMP 36.6; O2SAT 94; BMI 20.1
--- NOTE | 2025-05-19 16:05 | MHC.PC.OV ---
Vital Signs 05/19/25 16:05 Height 5 ft 7 in Weight 128 lb 8 oz BMI 20.1 BP 120/58 L Blood Pressure Location Lt brachial Position Sitting Pulse 104 H Pulse Source Pulse Oximeter Temp 97.8 F Temp Source Temporal Artery Scan Pulse Oximetry (%) 94 Oxygen Delivery Method Room Air Intake Visit Reasons: Med Check Allergies No Known Allergies Allergy (Verified 05/19/25 16:08) Medication List - Last Reconciled 05/19/25 by Diandra Grady MD albuterol sulfate 90 mcg/actuation (Ventolin HFA) 2 puffs inhalation Q6H PRN alprazolam 2 mg PO BID-TID PRN aspirin (Adult Low Dose Aspirin) 81 mg PO DAILY atomoxetine 25 mg PO QAM atomoxetine 60 mg PO QAM blood sugar diagnostic As directed check blood sugars q.day blood-glucose meter As directed blood-glucose sensor ([employer]Express G7 Sensor device) As directed blood-glucose,grain receiver,cont ([employer] G7 Baggage Clerk) As directed diphenoxylate-atropine 2.5-0.025 mg tabs PO BID dulaglutide 0.75 mg (0.5 mL) subcut QWEEK 30 days empagliflozin 25 mg PO QAM ezetimibe (Zetia) 10 mg PO DAILY 30 days flash glucose scanning reader ([employer] / cTraderStyle [place] 2 [place]) As directed flash glucose sensor (FreeStyle [place] 2 Sensor kit) As directed tuedselkymb-zazabdnsr-umycfjta 200-62.5-25 mcg (Trelegy Ellipta) 1 inh inhalation DAILY hydroxyzine HCl 25 mg PO DAILY hydroxyzine HCl mg PO BEDTIME ipratropium-albuterol 0.5 mg-3 mg(2.5 mg base)/3 mL 3 mL inhalation Q4-6H PRN 30 days lancets As directed loperamide 2 mg PO TID metformin ER 1,000 mg (2 x 500 mg) PO BID metoprolol succinate ER (Toprol XL) 50 mg PO DAILY mupirocin 2% 1 appl topical 3XW mupirocin calcium 2% 1 appl topical BID naloxone 4 mg/actuation (Narcan) 4 mg intranasal Q3M PRN nicotine 1 patch transdermal DAILY nitroglycerin 0.4 mg PO Every 5 minutes x3; omeprazole 40 mg PO DAILY ondansetron 8 mg PO Q8H PRN oxycodone 15 mg PO Q6H PRN 30 days pen needle, diabetic As directed prednisone 5 mg PO Q OTHER DAY 60 days psyllium husk (Fiber (psyllium husk)) 1.04 grams (2 x 0.52 gram) PO DAILY rosuvastatin 40 mg PO DAILY 30 days trazodone 50 mg PO BEDTIME PRN varenicline tartrate (Chantix Starting Month Box) PO PER PKG DIR Tobacco use date assessed: 05/19/25 Fall risk assessment: No Falls in past year Last assessed Fall Risk: 05/19/25 Dental Screening Dental Screen Date: 05/19/25 Did you have a dental visit in the last 12 months?: Yes Did you have a dental problem in the last 6 months where you did not have access to dental care?: No Was dental information given to patient?: Patient has dentist HPI Med Check HPI Details smoking still 2-1 smoking cigarettes PFSH Medical History Anxiety COPD (chronic obstructive pulmonary disease) Right iliac artery stenosis Osteoarthritis Hypercholesterolemia Coronary artery disease Attention deficit disorder Right radial fracture Pulmonary nodule Diabetic nephropathy Carotid stenosis Anxiety and depression Hypertension Type 2 diabetes mellitus with hyperglycemia Lumbar spondylosis Surgical History History of tooth extraction H/O endarterectomy Amputation toe Family History Father Stroke Mother Pancreatic cancer Son Sleep apnea Social History Housing: House Alcohol intake: current Alcohol intake frequency: holidays/special occasions only Alcohol type: wine Patient Tobacco Use Status: Current everyday Tobacco user Tobacco use type: Cigarette Cigarettes Per Day: 3 e-Cigarette/Vaping Use: Never Used Second Hand Smoke Exposure: Yes service: No Current occupational status: unemployed Cognitive needs: No Hearing needs: No Vision needs: Yes Questionnaire PHQ-9 Over the last 2 weeks, how often have you been bothered by any of the following problems? 1. Little interest or pleasure in doing things: not at all 2. Feeling down, depressed, or hopeless: not at all 3. Trouble falling or staying asleep, or sleeping too much: not at all 4. Feeling tired or having little energy: several days 5. Poor appetite or overeating: not at all 6. Feeling bad about yourself - or that you are a failure or have let yourself or your family down: not at all 7. Trouble concentrating on things, such as reading the newspaper or watching television: not at all 8. Moving or speaking so slowly that other people could have noticed. Or the opposite - being so fidgety or restless that you have been moving around a lot more than usual: not at all 9. Thoughts that you would be better off or of hurting yourself in some way: not at all Total score: 1 Source: Developed by Drs. George Andrew, Marion Vasques, Milad Goncalves and colleagues, with an educational jaylen from [employer]. Thrive Questionnaire Date Thrive assessed: 12/02/24 I am a: Patient What is your living situation today?: I have a steady place to live Within the past 12 months, did the food you bought not last and you didn't have the money to get more?: I choose not to answer this question Within the past 12 months, did you worry whether your food would run out before you got money to buy more?: Never true Do you have trouble paying for medicines?: No Do you have trouble getting transportation to medical appointments?: No Do you have trouble paying your heating and electricity bill?: No Do you have trouble taking care of your child, family member or friend?: No Do you have trouble with day-to-day activities such as bathing, preparing meals, shopping, managing finances, etc.?: No Are you currently unemployed and looking for a job?: Yes Are you interested in more education?: Yes Please select the resources that you would like help with: None Currently or been in a relationship where the following occur: No concerns reported THRIVE Score: 0 AUDIT C Alcohol Use Questionnaire (AUDIT-C) 1. How often do you have a drink containing alcohol?: 2-3 times a week 2. How many drinks containing alcohol do you have on a typical day when you are drinking?: 1 or 2 3. How often do you have six or more drinks on one occasion?: Never Total Score: 3 PATRIC-7 AMB Questionnaire PATRIC-7 Date PATRIC - 7 assessed: 12/02/24 Feeling nervous, anxious, or on edge: 1 = Several days Not being able to stop or control worryin = Not at all Worrying too much about different things: 0 = Not at all Trouble relaxin = Not at all Being so restless that it is hard to sit still: 0 = Not at all Becoming easily annoyed or irritable: 0 = Not at all Feeling afraid as if something awful might happen: 0 = Not at all Total PATRIC-7 score (0-4 normal; 5-9 mild; 10-14 moderate; 15-21 severe): 1 Source: Developed by Drs. George Andrew, Marion Vasques, Milad Goncalves and colleagues, with an educational jaylen from [employer]. Physical exam (Primary Care) Vital Signs: Last Vital Signs Temp 97.8 F 05/19/25 16:05 Pulse 104 H 05/19/25 16:05 BP 120/58 L 05/19/25 16:05 Pulse Ox 94 05/19/25 16:05 Oxygen Delivery Method Room Air 05/19/25 16:05 BMI result Body Mass Index 20.1 Tobacco/Smoking Status: Tobacco use Status Tobacco use date assessed 05/19/25 05/19/25 16:10 Patient Tobacco Use Status Current everyday Tobacco 05/19/25 16:10 Tobacco use type Cigarette 05/19/25 16:10 e-Cigarette/Vaping Use Never Used 05/19/25 16:10 PHQ-9: PHQ-9 Score PHQ-9: Total score 1 05/19/25 16:36 Thrive Assessment: Date of Thrive Assessment Date Thrive assessed 12/02/24 05/19/25 16:10 Currently or been in a relationship where the following occur: No concerns reported Const General: alert; No acute distress Eyes Conjunctivae: conjunctivae normal Resp Auscultation: clear to auscultation bilaterally Cardio Rate: regular rate Rhythm: regular rhythm GI Inspection: Yes normal to inspection Extrem General: Yes normal to inspection and No edema Office Procedures Flu Questionnaire Does the patient have a severe egg allergy?: No Does the patient have severe life threatening allergies?: No Does the patient have a fever or illness today?: No Has the patient ever had Guillain-Posen Syndrome?: No Has the patient ever had any past reaction to a flu shot?: No Immunizations Fluarix [id number] (PF) 45 mcg (15 mcg x 3)/0.5 mL IM syringe Performing Provider: Diandra Grady MD [facility] Administered by: EDSON Lindsey on 05/19/25 16:53 Dose Route Admin Location Dispensed Lot Number Expiration Date NDC [employer]er 0.5 mL IM Left Deltoid 0.5 mL [id number] 05/19/25 [id number] Provasculon VIS Given Date VIS Provided VIS Publication Date 05/19/25 Single Vaccine 24 Eligibility Eligibility Date Funding Source Not [facility] Eligible 05/19/25 Private Coding Level of Care Code Est Pt Level 4 (76714) Complex EM visit Add On G2211 Diagnoses Coronary artery disease involving [place] coronary artery of [place] heart without angina pectoris I25.10 Coronary Disease-Associated Artery/Lesion type: [place] artery [place] vs. transplanted heart: [place] heart Associated angina: without angina Peripheral arterial disease I73.9 Hypercholesterolemia E78.00 Essential hypertension I10 Hypertension type: essential hypertension Type 2 diabetes mellitus with hyperglycemia, without long-term current use of insulin E11.65 Diabetes mellitus oil heaterman insulin use: without snf use Closed wedge compression fracture of L2 vertebra, sequela S32.020S Encounter type: sequela Lumbar vertebra fracture level: L2 Fracture type: closed COPD (chronic obstructive pulmonary disease) J44.9 Tobacco abuse Z72.0 Assessment & Plan Assessment & Plan (1) Coronary artery disease: Code(s): I25.10 - Atherosclerotic heart disease of [place] coronary artery without angina pectoris Category: Medical Qualifiers: Coronary Disease-Associated Artery/Lesion type: [place] artery [place] vs. transplanted heart: [place] heart Associated angina: without angina Qualified Code(s): I25.10 - Atherosclerotic heart disease of [place] coronary artery without angina pectoris Plan: Control the cholesterol, weight, blood pressure, diabetes on aspirin 81 mg once a day (2) Peripheral arterial disease: Comment: April 2024 CT angio short segment severe stenosis distal right superficial femoral artery focal moderate to severe stenosis mid right popliteal artery left lower extremity multifocal moderate stenosis left superficial femoral artery short segment severe stenosis in the proximal and mid left popliteal artery patent 3 vessel runoff. Code(s): I73.9 - Peripheral vascular disease, unspecified Category: Medical Plan: Continues to follow-up with vascular. (3) Hypercholesterolemia: Code(s): E78.00 - Pure hypercholesterolemia, unspecified Category: Medical Plan: Avoid fried foods, chicken skin, eggs, butter margarine, pastries and meat. Be it pork or beef they have a lot of cholesterol LDL goal of less than 70 and triglyceride of less than 150 she needs blood work on Zetia and rosuvastatin (4) Hypertension: Code(s): I10 - Essential (primary) hypertension Category: Medical Qualifiers: Hypertension type: essential hypertension Qualified Code(s): I10 - Essential (primary) hypertension Plan: Continue with blood pressure medication. Decrease salt intake and exercise patient is on metoprolol 50 mg once a day (5) Type 2 diabetes mellitus with hyperglycemia: Comment: [facility] doctor Code(s): E11.65 - Type 2 diabetes mellitus with hyperglycemia Category: Medical Qualifiers: Diabetes mellitus snf insulin use: without oil heaterman use Qualified Code(s): E11.65 - Type 2 diabetes mellitus with hyperglycemia Plan: Decrease the amount of carbohydrate intake, pasta, bread, rice and potatoes are all sugar and that is aside from all the sweet stuff, remember that fruits are good but they are Sweet also. Patient is on Trulicity at 0.75 mg once a week Jardiance 25 mg once a day metformin a 1000 mg twice a day (6) Wedge compression fracture of lumbar vertebra: Comment: May 2022 MR L1 and L2 Code(s): S32.000A - Wedge compression fracture of unspecified lumbar vertebra, initial encounter for closed fracture Category: Medical Qualifiers: Encounter type: sequela Lumbar vertebra fracture level: L2 Fracture type: closed Qualified Code(s): S32.020S - Wedge compression fracture of second lumbar vertebra, sequela Plan: Narcotic pain meds: Is being prescribed with the understanding that these medications are potentially addictive and should be used only when absolutely necessary and must always be secured. Any remaining pills should be safely disposed off appropriately. Patient is advised that narcotics can impaired judgment and one should not drive or operate heavy machinery while taking these medications. Never share these medications with anybody and do not leave them unattended. They will not be replaced under any circumstances. (7) COPD (chronic obstructive pulmonary disease): Comment: She does have chronic obstructive pulmonary disease. Recently treated for acute exacerbation at [facility]. She is somewhat confused about the medications. Code(s): J44.9 - Chronic obstructive pulmonary disease, unspecified Category: Medical Plan: Patient is being followed up by pulmonology on Trelegy and short-acting albuterol. Has nebulizer also (8) Tobacco abuse: Comment: Patient has longstanding history of smoking 1 pack of cigarettes a day, for more than 40 years. Currently smoking 3 cigarettes a day. Says that she can not quit completely. Code(s): Z72.0 - Tobacco use Category: Medical Plan: Patient is strongly advised to stop is incompletely stop. Patient has a lung cancer screening program Plan History of Present Illness The patient is a 70-year-old female presenting for a follow-up visit for management of multiple chronic conditions. Her past medical history is significant for diabetes mellitus, hypertension, coronary artery disease, hypercholesterolemia, generalized anxiety disorder, and chronic pain. She has a history of a wedge compression fracture of a lumbar vertebra in 2021. Regarding her COPD, the patient was recently hospitalized on April 30 for an acute exacerbation at [facility] and was seen by a batch or continuous still operator in May for shortness of breath. Her treatment includes Trelegy, a short-acting albuterol nebulizer, and she was given prednisone. She continues to smoke 1-3 cigarettes daily. For her coronary artery disease, a myocardial perfusion scan on May 15 showed basal inferolateral and anteroseptal ischemia with an ejection fraction of 55%. In terms of her diabetes, an eye exam on May 17 showed no retinopathy. Her last hemoglobin A1c in March was 7.5%. Her medication regimen includes Trulicity 0.75 mg weekly, Jardiance 25 mg daily, and metformin 1000 mg twice a day. The patient reports fecal incontinence, which she describes as a deposit of stool, for several years. This worsened after a recent two-week hospitalization during which she did not receive her medication. Her last blood work was in March, and she is due for updated labs. Health Maintenance The patient is due for her annual flu shot and will receive it today. She is up-to-date on her shingles, tetanus, RSV, and pneumonia vaccinations. A prescription for bacitracin ointment was sent to the pharmacy as requested. Social History - Tobacco Use: The patient is a current smoker, using 1-3 cigarettes per day. - Diet: The patient acknowledges her diet is okay and could be improved. - Fluid Intake: Reports drinking a lot of water, about 3 or 4 glasses a day. - Functional Status: Reports feeling very weak. Review of Systems - General: Reports feeling very weak. - Respiratory: Reports having a hard time breathing. - Gastrointestinal: Reports fecal incontinence, described as a deposit of stool. - Denies watery stools. Physical Exam - Vital Signs: Blood pressure is good. - Respiratory: Regular breathing noted. - A small wheeze is audible on auscultation at the end of expiration. Results - Myocardial Perfusion Scan (May 15): Showed basal inferolateral and anteroseptal ischemia with an ejection fraction of 55%. - Diabetic Eye Exam (May 17): Without retinopathy. - Laboratory (March): Hemoglobin A1c was 7.5%. Plan Patient was informed and verbally consented to the use of an ambient scribe for clinic note documentation during this visit. 1. Chronic Obstructive Pulmonary Disease And Tobacco Use Disorder The patient continues to be followed by pulmonology for COPD and was recently hospitalized for an exacerbation. She is on Trelegy and uses an albuterol nebulizer, and was instructed to rinse her mouth after using Trelegy. Despite counseling, she continues to smoke 1-3 cigarettes per day and was strongly advised to stop completely, as her lungs and heart will not tolerate any level of smoking. She will be scheduled for a repeat CT scan for lung cancer screening. 2. Fecal Incontinence The patient reports a long-standing history of fecal incontinence that worsened after her recent hospitalization. The plan is to add dietary fiber to bulk the stool, and psyllium has been prescribed. She was advised to increase her water intake. A referral to gastroenterology was discussed as a possibility. 3. Coronary Artery Disease And Hypercholesterolemia The patient will continue her regimen of aspirin 81 mg, rosuvastatin, and ezetimibe. The LDL goal is less than 70 mg/dL and triglyceride goal is less than 150 mg/dL. Updated fasting blood work has been ordered, and she will continue to follow up with vascular surgery. 4. Type 2 Diabetes Mellitus The patient's last hemoglobin A1c was 7.5%. She will continue her current medications, including Trulicity 0.75 mg weekly, Jardiance 25 mg daily, and metformin 1000 mg twice daily. Updated fasting lab work has been ordered to re-check her A1c. 5. Hypertension The patient's blood pressure is well-controlled. She will continue her current dose of metoprolol 50 mg once daily. 6. General Weakness The patient complains of significant weakness. Her medications were reviewed, and it was noted that hydroxyzine can cause daytime sleepiness. Updated blood work has been ordered to further investigate the cause. Discussion Notes I had an extensive discussion with the patient regarding her multiple chronic conditions. I strongly emphasized the need for complete smoking cessation, explaining that her heart and lungs can no longer tolerate any tobacco use and that she is very close to the 'finish line' of quitting. We discussed that while the nebulizer helps open her airways, continued smoking will cause them to close back up. We addressed her fecal incontinence, and I explained that while loperamide can be used, the primary goal is to bulk up her stools with fiber. I prescribed psyllium fiber and recommended increasing her dietary fiber and water intake. I informed her that I have ordered new fasting blood work to assess her A1c, cholesterol, and to investigate her complaint of weakness. I explained that it is important the lab looks for the orders under my name. We also discussed that hydroxyzine could be contributing to her fatigue. Finally, we reviewed her immunizations, and she agreed to receive her flu shot during the visit. I also refilled her topical antibiotic with bacitracin as requested. Patient Instructions - You must stop smoking completely. - Go for fasting blood work at your convenience; new orders have been sent. - Continue your current medications for COPD, diabetes, high blood pressure, and cholesterol. - Remember to rinse your mouth after using your Trelegy inhaler. - A prescription for psyllium fiber has been sent to help with bowel control; take this and try to eat more high-fiber foods and drink plenty of water. - We will schedule you for a repeat CT scan for lung cancer screening. - You will receive your flu shot today before you leave. - A prescription for bacitracin ointment was sent to [facility]. Orders: Orders Comprehensive Met. Panel Today E11.65 - Type 2 diabetes mellitus with hyperglycemia Free T4 (Free Thyroxine) Today E11.65 - Type 2 diabetes mellitus with hyperglycemia Thyroid Stimulating Hormone Today E11.65 - Type 2 diabetes mellitus with hyperglycemia Creatinine Urine Today E11.65 - Type 2 diabetes mellitus with hyperglycemia Microalbumin, Random (w Creat) Today E11.65 - Type 2 diabetes mellitus with hyperglycemia Hemoglobin A1c Today E11.65 - Type 2 diabetes mellitus with hyperglycemia UA CC w/rflx Micro + Cult Today E11.65 - Type 2 diabetes mellitus with hyperglycemia, R30.0 - Dysuria Complete Blood Count Auto Diff Today E11.65 - Type 2 diabetes mellitus with hyperglycemia Lipid Panel Today E11.65 - Type 2 diabetes mellitus with hyperglycemia, E78.00 - Pure hypercholesterolemia, unspecified Vitamin B12 and Folate Today E11.65 - Type 2 diabetes mellitus with hyperglycemia IRON PROFILE Today E11.65 - Type 2 diabetes mellitus with hyperglycemia Ferritin Today E11.65 - Type 2 diabetes mellitus with hyperglycemia Vitamin D 25-OH Total Today E11.65 - Type 2 diabetes mellitus with hyperglycemia Reticulocyte Count Today E11.65 - Type 2 diabetes mellitus with hyperglycemia Influenza [id number] Immunization Today Z23 - Encounter for immunization Medications: New mupirocin calcium 2% 1 appl topical BID 30 grams 0RF psyllium husk (Fiber (psyllium husk)) 1.04 grams (2 x 0.52 gram) PO DAILY 60 caps 4RF E11.65 - Type 2 diabetes mellitus with hyperglycemia
--- OUTSIDE RECORDS SUMMARY | 2025-05-19 16:47 | XMS_ITS | Clinical Summary ---
Author Organization [facility] Address [address] [place] [address] Care Team Providers Care Software Licensing Executive Name Role Phone Maren Martel DMD Primary Care Provider [phone] Source Comments PLEASE NOTE, if this patient [...] Drug Screen 07/13/2024 Depression Annual Screen 07/13/2024 [id number] ( - season) 2025 Imm-Influenza (#1) 2025 06/19/2017, 1 [...] Maintenance Insurance [place] MEDICAID DENT[place] Care Teams Software Licensing Executive Relationship Specialty Start Date End Date Maren Martel DMD [address] [place] [address] PCP - General 03/24/19
--- OUTSIDE RECORDS SUMMARY | 2025-05-19 16:47 | XMS_ITS | Clinical Summary ---
Author Organization [facility] Address [address] [place] [phone] Phone Care Team Providers Care Media Consultant Outside Sales Name Role Phone Unavailable Primary Care Provider [...] It is not the complete legal health record.[facility]
--- OUTSIDE RECORDS SUMMARY | 2025-05-19 16:47 | XMS_ITS | Clinical Summary ---
Author Organization [facility] [address] [facility] Address [address] [place] [address] Phone Care Team Providers Care Patent Law Specialist Name Role Phone Diandra Grady MD Primary Care Provider [phone] Allergies No known active allergies Medications Trulicity [...] deficit disorder) 05/23/2024 Type 2 diabetes mellitus ([facility] V24, [facility] V 28) 05/23/2024 Neuropathy associated with endocrine disorder ([facility] [place] V24) 05/23/2024 Bilateral carotid artery stenosis 05/23/2024 Primary hypertension 05/23/2024 Anxiety 05/23/2024 Depression 05/23/2024 Chronic low back pain 05/23/2024 Surgical History Surgery Date Site/Laterality Comments TOE AMPUTATION CAROTID ENDARTERECTOMY COLONOSCOPY 07/01/2016 nl, tics, hemorrhoids ESOPHAGOGASTRODUODENOSCOPY 07/01/2016 nl CHOLECYSTECTOMY Medical History Medical History Date Comments GERD (gastroesophageal reflux disease) Irritable bowel syndrome with diarrhea HTN (hypertension) Diabetes ([facility] V24, [facility] V28) Hyperlipidemia Chronic back pain PVD (peripheral vascular disease) ([facility] V24) Family History Medical History Relation Name [...] 08/25/2024 4:32 PM [facility] Potassium 4.4 3.5 - 5.5 [...] [facility] Comment:Calculation based on the Chronic [...] LAB CHEMISTRY METHOD 08/25/2024 4:32 PM EST [facility] Alkaline Phosphatase 76 42 - 121 unit/L LAB CHEMISTRY METHOD 08/25/2024 4:32 PM [facility] Total Protein 6.8 6.0 - 8.0 g/dL LAB CHEMISTRY METHOD 08/25/2024 4:32 PM [facility] Albumin 3.5 3.2 - 5.0 g/dL LAB CHEMISTRY METHOD 08/25/2024 4:32 PM [facility] Total Bilirubin 0.3 0.0 - 1.4 mg/dL LAB CHEMISTRY METHOD 08/25/2024 4:32 PM [facility] Blood Venous blood specimen / Unknown Venipuncture / Unknown 08/25/2024 3:19 PM EST 08/25/2024 3:58 PM EST Eryn Lauren STEREO PLOTTER OPERATOR LAB BLOOD ORDERABLES Final Re sult [facility] [address] [place] [address], * COLONOSCOPY (07/01/2016 9:36 AM EST) Anatomical Region Laterality Modality Endoscopy Historical Provider GI~PROCEDURE ORDERABLES F inal Result from Last 3 Months or Most Recently Relevant to Health Maintenance Insurance AETNA MEDICARE ADVANTAGE MEDICAID - [place] Care Teams Patent Law Specialist Relationship Specialty Start Date End Date Diandra Grady MD [address] [place] [address] [address] [facility] [place] [address] PCP - General Internal Medicine 07/15/21
--- OUTSIDE RECORDS SUMMARY | 2025-05-19 16:47 | XMS_ITS | Patient Health Record ---
Author Organization [facility] Address [address] [facility] [place] [address] Care Team Providers Care Internet Project Manager Name Role Phone Diandra Grady Primary Care Provider Unavailabl e Black, Camryn Unavailable [phone] Reason For Referral No Information Medications Medication [...] Problem Acquired hammer toe of right foot (8811773377394446 ) Other hammer toe(s) (acquired), right foot (M20.41) Active confirmed Problem Acquired hammer toe of left foot (4865325585941533 ) Other hammer toe(s) (acquired), left foot (M20.42) Active confirmed Problem Polyneuropathy due to type 2 diabetes mellitus (691016087) Type 2 diabetes mellitus with diabetic polyneuropathy (E11.42) Active confirmed Encounters Encounter Location Date Provider Diagnosis [facility] [address] 09/06/2024 [facility] [address] [address] 10/27/2024 Camryn Lazaro [facility] [address] [address] 02/14/2025 Camryn Lazaro [facility] [address] 03/01/2025 Camryn Lazaro Plan Of Treatment Pending Test Test Name Order Date [id number] NAIL, 6 OR MORE 10/09/2015 [id number] NAIL, 6 OR MORE 08/10/2017 74844-[id number] NAIL, 6 OR MORE 11/01/2015 [id number] NAIL, 6 OR MORE 01/02/2017 [id number] NAIL, 1-5 12/25/2015 [id number] NAIL, 1-5 01/09/2016 90254- Debride <25 sq cm 10/09/2015 46572-[id number] SKIN/TISSUE 11/29/2015 62639-VHYUJMA SKIN/TISSUE 12/25/2015 60183-CAMMEEG SKIN/TISSUE 01/09/2016 09492-AGOFUOO SKIN/TISSUE 11/01/2015 89070-KXZL SKIN LESIONS, OVER 4 01/03/20 17 97890-FGZJ SKIN LESIONS, OVER 4 08/10/19 18 83274-MPCP SKIN LESIONS, 2 TO 4 10/09/19 16 Insurance Providers Payer Name Payer Address Payer Phone Subscriber Number Group Number Insured Name Patient Relationship to Insured Coverage Start Date Coverage End Date AARP Medicare Complete [address] [address] [place] [address] [phone] [id number] Lena Bill Self - patient is the insured Medical (General) History Medical History History ICD Code Anxiety Arthritis Cataracts Depression type II diabetes Neuropathy High blood pressure Headaches Psychiatric disorder Back,Hip,and Knee pain Reflux Measles Mumps Chicken pox Surgical History Surgery Date(Month/Year) Stent at [facility] 11-23-2015 Hospitalization History Reason Date(Month/Year) [facility] - stent iliac artery & amputati on of toe 12/2015 [facility] Left Carotid artery 07/21/17
--- OUTSIDE RECORDS SUMMARY | 2025-05-19 16:47 | XMS_ITS | Clinical Summary ---
Author Organization [facility] Address [address] [address] Phone Care Team Providers Care Director Of Health Care Marketing Name Role Phone Unavailable Primary Care Provider [...] Insurance Medicaid [place] Aetna MCR Adv PPO ([id number])
== END 2025-05-19 17:01 | disposition home or self-care (01) ==
LOC: HO.HMCH 15:57
PROVIDERS: PCP Internal Medicine; Visit Provider Internal Medicine
DX: I25.10 Atherosclerotic heart disease of native coronary artery without angina pectoris (principal); E11.65 Type 2 diabetes mellitus with hyperglycemia; J44.9 Chronic obstructive pulmonary disease, unspecified; I73.9 Peripheral vascular disease, unspecified; E78.00 Pure hypercholesterolemia, unspecified; I10 Essential (primary) hypertension; S32.020S Wedge compression fracture of second lumbar vertebra, sequela; Z72.0 Tobacco use; Z23 Encounter for immunization

== ENCOUNTER → 2025-05-19 15:56 | Outpatient (BNVA) | payer MEDICARE, MEDICAID, SELFPAY | PROVIDERS: PCP Internal Medicine; Visit Provider Internal Medicine | DX: I25.10 Atherosclerotic heart disease of native coronary artery without angina pectoris (principal); I73.9 Peripheral vascular disease, unspecified; E78.00 Pure hypercholesterolemia, unspecified; I10 Essential (primary) hypertension; E11.65 Type 2 diabetes mellitus with hyperglycemia; S32.020S Wedge compression fracture of second lumbar vertebra, sequela; J44.9 Chronic obstructive pulmonary disease, unspecified; R51.9 Headache, unspecified; R53.1 Weakness; R15.9 Full incontinence of feces; Z72.0 Tobacco use; Z13.31 Encounter for screening for depression; Z23 Encounter for immunization; Z79.85 Long-term (current) use of injectable non-insulin antidiabetic drugs; Z79.891 Long term (current) use of opiate analgesic | CPT/HCPCS: 90471; 90656; 96127; 99212 ==

== ENCOUNTER 2025-05-31 14:29 | Outpatient (AMB) | payer MEDICARE, MEDICAID, SELFPAY ==
--- NOTE | 2025-05-31 14:50 | MHC.PC.OV ---
Vital Signs 05/31/25 14:51 Height 5 ft 7 in Weight 129 lb 8 oz BMI 20.3 BP 90/40 L Blood Pressure Location Lt brachial Position Sitting Respiration 18 Pulse 108 H Pulse Source Pulse Oximeter Temp Source Temporal Artery Scan Pulse Oximetry (%) 97 Oxygen Delivery Method Room Air Intake Visit Reasons: Fecal incontinence Alodize Machine Helper Required: No Accompanied by: Self / Same As Patient Allergies No Known Allergies Allergy (Verified 05/31/25 14:51) Tobacco use date assessed: 05/31/25 Fall risk assessment: No Falls in past year Last assessed Fall Risk: 05/31/25 Dental Screening Dental Screen Date: 05/31/25 Did you have a dental visit in the last 12 months?: Yes Did you have a dental problem in the last 6 months where you did not have access to dental care?: No Was dental information given to patient?: Patient has dentist HPI HPI Comments History of Present Illness Details The patient is a 70-year-old female presenting with fecal incontinence and anal burning. She reports the onset of symptoms was three weeks ago, characterized by constant, involuntary leakage of pasty stool, which requires the use of pads. She describes the associated anal pain as an awful burning sensation. The patient notes that this is a recurring problem which has happened in the past and resolved on its own, though she does not recall when. She denies any constipation, fever, or chills. Past medical history is significant for diabetes mellitus. The patient denies any history of urinary incontinence, rectal prolapse, personal history of cancer, or radiation therapy to the pelvic area. She has had no recent changes to her medications and reports drinking only bottled water. [facility] Medical History Anxiety COPD (chronic obstructive pulmonary disease) Right iliac artery stenosis Osteoarthritis Hypercholesterolemia Coronary artery disease Attention deficit disorder Right radial fracture Pulmonary nodule Diabetic nephropathy Carotid stenosis Anxiety and depression Hypertension Type 2 diabetes mellitus with hyperglycemia Lumbar spondylosis Surgical History History of tooth extraction H/O endarterectomy Amputation toe Family History Father Stroke Mother Pancreatic cancer Son Sleep apnea Social History Housing: House Alcohol intake: current Alcohol intake frequency: holidays/special occasions only Alcohol type: wine Patient Tobacco Use Status: Current everyday Tobacco user Tobacco use type: Cigarette Cigarettes Per Day: 3 e-Cigarette/Vaping Use: Never Used Second Hand Smoke Exposure: Yes service: No Current occupational status: unemployed Cognitive needs: No Hearing needs: No Vision needs: Yes Questionnaire PHQ-9 Over the last 2 weeks, how often have you been bothered by any of the following problems? 1. Little interest or pleasure in doing things: not at all 2. Feeling down, depressed, or hopeless: not at all 3. Trouble falling or staying asleep, or sleeping too much: not at all 4. Feeling tired or having little energy: several days 5. Poor appetite or overeating: not at all 6. Feeling bad about yourself - or that you are a failure or have let yourself or your family down: not at all 7. Trouble concentrating on things, such as reading the newspaper or watching television: not at all 8. Moving or speaking so slowly that other people could have noticed. Or the opposite - being so fidgety or restless that you have been moving around a lot more than usual: not at all 9. Thoughts that you would be better off or of hurting yourself in some way: not at all Total score: 1 Source: Developed by Drs. George Andrew, Marion Vasques, Milad Goncalves and colleagues, with an educational jaylen from [employer]. Thrive Questionnaire Date Thrive assessed: 05/31/25 I am a: Patient What is your living situation today?: I have a steady place to live Within the past 12 months, did the food you bought not last and you didn't have the money to get more?: I choose not to answer this question Within the past 12 months, did you worry whether your food would run out before you got money to buy more?: Never true Do you have trouble paying for medicines?: No Do you have trouble getting transportation to medical appointments?: No Do you have trouble paying your heating and electricity bill?: No Do you have trouble taking care of your child, family member or friend?: No Do you have trouble with day-to-day activities such as bathing, preparing meals, shopping, managing finances, etc.?: No Are you currently unemployed and looking for a job?: Yes Are you interested in more education?: Yes Please select the resources that you would like help with: None Currently or been in a relationship where the following occur: No concerns reported THRIVE Score: 0 AUDIT C Alcohol Use Questionnaire (AUDIT-C) 1. How often do you have a drink containing alcohol?: 2-3 times a week 2. How many drinks containing alcohol do you have on a typical day when you are drinking?: 1 or 2 3. How often do you have six or more drinks on one occasion?: Never Total Score: 3 PATRIC-7 AMB Questionnaire PATRIC-7 Date PATRIC - 7 assessed: 05/31/25 Feeling nervous, anxious, or on edge: 1 = Several days Not being able to stop or control worryin = Not at all Worrying too much about different things: 0 = Not at all Trouble relaxin = Not at all Being so restless that it is hard to sit still: 0 = Not at all Becoming easily annoyed or irritable: 0 = Not at all Feeling afraid as if something awful might happen: 0 = Not at all Total PATRIC-7 score (0-4 normal; 5-9 mild; 10-14 moderate; 15-21 severe): 1 Source: Developed by Drs. George Andrew, Marion Vasques, Milad Goncalves and colleagues, with an educational jaylen from [employer]. Physical exam (Primary Care) Vital Signs: Last Vital Signs Pulse 108 H 05/31/25 14:51 Resp 18 05/31/25 14:51 BP 90/40 L 05/31/25 14:51 Pulse Ox 97 05/31/25 14:51 Oxygen Delivery Method Room Air 05/31/25 14:51 General: Well-appearing, alert, oriented ?3, in no acute distress. Cardiovascular: RRR, S1-S2 appreciated, no murmurs, rubs or gallops. Respiratory: Lungs clear to auscultation bilaterally, no wheezes, rales or rhonchi. Abdomen: Soft, nontender, nondistended. Normoactive bowel sounds. Anal exam: Decreased anal sphincter tone, perianal skin erythema and warmth to touch. No ulcers or blisters or vesicles noted. BMI result Body Mass Index 20.3 Tobacco/Smoking Status: Tobacco use Status Tobacco use date assessed 05/31/25 05/31/25 14:55 Patient Tobacco Use Status Current everyday Tobacco 05/31/25 14:55 Tobacco use type Cigarette 05/31/25 14:55 e-Cigarette/Vaping Use Never Used 05/31/25 14:55 PHQ-9: PHQ-9 Score PHQ-9: Total score 1 05/31/25 15:13 Thrive Assessment: Date of Thrive Assessment Date Thrive assessed 05/31/25 05/31/25 14:55 Currently or been in a relationship where the following occur: No concerns reported Coding Level of Care Code Est Pt Level 4 (23962) Diagnoses Incontinence of feces, unspecified fecal incontinence type R15.9 Fecal incontinence type: unspecified Pain of perianal area K62.89 Assessment & Plan Assessment & Plan (1) Fecal incontinence: Code(s): R15.9 - Full incontinence of feces Category: Medical Qualifiers: Fecal incontinence type: unspecified Qualified Code(s): R15.9 - Full incontinence of feces Plan: The patient presents with a 3-week history of recurrent, constant fecal incontinence leading to significant perianal inflammation and burning pain. The differential includes infectious or inflammatory etiologies. An exam confirms significant inflammation without ulceration. The plan includes ordering stool studies (lactoferrin, calprotectin) and blood work to rule out infection and inflammation. A referral will be placed to Gastroenterology for further evaluation, and the patient was advised to contact the GI office. For symptomatic relief, a topical hydrocortisone cream will be prescribed for pain and inflammation. The patient is advised to continue using loperamide as needed to manage incontinence. Behavioral modifications were recommended, including bowel training with scheduled toilet times, using fiber supplements, and maintaining hydration to help regulate bowel movements and reduce incontinence episodes. The patient was also advised to keep the perianal area clean and dry. (2) Pain of perianal area: Code(s): K62.89 - Other specified diseases of anus and rectum Plan: As above Orders: Orders Leukocytes Stool Qualitative Today R15.9 - Full incontinence of feces Calprotectin, Fecal Today R15.9 - Full incontinence of feces Lactoferrin, Fecal, Quant. Today R15.9 - Full incontinence of feces Giardia Ag Stool EIA Today R15.9 - Full incontinence of feces Cyclospora & Isospora Stool Today R15.9 - Full incontinence of feces Celiac Disease Panel Today R15.9 - Full incontinence of feces Comprehensive [place]. Panel Fast Today R19.7 - Diarrhea, unspecified Referrals Gastroenterology Referral R15.9 - Full incontinence of feces Medications: New hydrocortisone 2.5% 1 appl [place] BID PRN 30 grams 0RF hemorrhoids
[2025-05-31 14:51] VITALS: BP 90/40; PULSE 108; RESP 18; O2SAT 97; BMI 20.3
--- OUTSIDE RECORDS SUMMARY | 2025-06-01 02:58 | XMS_ITS | Clinical Summary ---
Author Organization [facility] Address [address] [facility] [address] [place] [address] Phone Care Team Providers Care Sword Swallower Name Role Phone Unavailable Primary Care Provider [...] It is not the complete legal health record.[facility]
--- OUTSIDE RECORDS SUMMARY | 2025-06-01 02:58 | XMS_ITS | Clinical Summary ---
Author Organization [facility]. Address [address] [address] Phone Care Team Providers Care Data Analytics Chief Scientist Name Role Phone Unavailable Primary Care Provider [...] Insurance Medicaid [place] Aetna MCR Adv PPO ([id number])
--- OUTSIDE RECORDS SUMMARY | 2025-06-01 02:58 | XMS_ITS | Patient Health Record ---
Author Organization [facility] Address [address] [facility] [place] [address] Care Team Providers Care Noodle Press Operator Name Role Phone Diandra Grady Primary Care Provider Unavailabl e Black, Camryn Unavailable [phone] Reason For Referral No Information Medications Medication [...] Problem Acquired hammer toe of right foot ([id number] ) Other hammer toe(s) (acquired), right foot (M20.41) Active confirmed Problem Acquired hammer toe of left foot (2824501438617251 ) Other hammer toe(s) (acquired), left foot (M20.42) Active confirmed Problem Polyneuropathy due to type 2 diabetes mellitus (063695930) Type 2 diabetes mellitus with diabetic polyneuropathy (E11.42) Active confirmed Encounters Encounter Location Date Provider Diagnosis [facility] [address] 09/06/2024 [facility] [address] [address] 10/27/2024 Camryn Lazaro [facility] [address] [address] 02/14/2025 Camryn Lazaro [facility] [address] 03/01/2025 Camryn Lazaro Plan Of Treatment Pending Test Test Name Order Date [id number] NAIL, 6 OR MORE 10/09/2015 46986-[id number] NAIL, 6 OR MORE 11/01/2015 [id number] NAIL, 6 OR MORE 01/02/2017 [id number] NAIL, 6 OR MORE 08/10/2017 11725-OTZTHBU NAIL, 1-5 12/25/2015 88421-[id number] NAIL, 1-5 01/09/2016 52574- Debride <25 sq cm 10/09/2015 [id number] SKIN/TISSUE 01/09/2016 33437-LJAZHTV SKIN/TISSUE 11/01/2015 54197-[id number] SKIN/TISSUE 11/29/2015 99802-MNAQUHN SKIN/TISSUE 12/25/2015 04176-FROC SKIN LESIONS, OVER 4 01/03/20 17 58091-MXEK SKIN LESIONS, OVER 4 08/10/19 18 49589-WPDP SKIN LESIONS, 2 TO 4 10/09/19 16 Insurance Providers Payer Name Payer Address Payer Phone Subscriber Number Group Number Insured Name Patient Relationship to Insured Coverage Start Date Coverage End Date AARP Medicare Complete [address] [address] [place] [address] [phone] [id number] Lena Bill Self - patient is the insured Medical (General) History Medical History History ICD Code Anxiety Arthritis Cataracts Depression type II diabetes Neuropathy High blood pressure Headaches Psychiatric disorder Back,Hip,and Knee pain Reflux Measles Mumps Chicken pox Surgical History Surgery Date(Month/Year) Stent at [facility] 11-23-2015 Hospitalization History Reason Date(Month/Year) [facility] - stent iliac artery & amputati on of toe 12/2015 [facility] Left Carotid artery 07/21/17
== END 2025-05-31 15:40 | disposition home or self-care (01) ==
PROVIDERS: PCP Internal Medicine; Visit Provider Student in an Organized Health Care Education/Training Program
DX: R15.9 Full incontinence of feces (principal); K62.89 Other specified diseases of anus and rectum

== ENCOUNTER → 2025-05-31 14:29 | Outpatient (BNVA) | payer MEDICARE, MEDICAID, SELFPAY | PROVIDERS: PCP Internal Medicine; Visit Provider Student in an Organized Health Care Education/Training Program | DX: R15.9 Full incontinence of feces (principal); K62.89 Other specified diseases of anus and rectum; F17.210 Nicotine dependence, cigarettes, uncomplicated; Z13.31 Encounter for screening for depression; Z13.39 Encounter for screening examination for other mental health and behavioral disorders | CPT/HCPCS: 96127; 99212 ==

== ENCOUNTER 2025-06-02 15:42 | Outpatient (REF) | payer MEDICARE, MEDICAID, SELFPAY ==
--- OUTSIDE RECORDS SUMMARY | 2025-06-02 15:46 | XMS_ITS | Clinical Summary ---
Author Organization [facility] Address [address] [facility] [address] [place] [address] Phone Care Team Providers Care Mud Tank Operator Name Role Phone Unavailable Primary Care [...] It is not the complete legal health record.[facility]
--- OUTSIDE RECORDS SUMMARY | 2025-06-02 15:46 | XMS_ITS | Clinical Summary ---
Author Organization [facility] Address [address] [address] Phone Care Team Providers Care Agricultural Equipment Operator Name Role Phone Unavailable Primary Care [...] Insurance Medicaid [place] Aet[place] MCR Adv PPO ([id number])
--- OUTSIDE RECORDS SUMMARY | 2025-06-02 15:46 | XMS_ITS | Clinical Summary ---
Author Organization [facility] [address] [facility] Address [address] [place] [address] Phone Care Team Providers Care Patternmaker Apprentice Wood Name Role Phone Diandra Grady MD Primary Care Provider [phone] Allergies No known active allergies Medications Trulicity [...] Coronary artery disease with angina pectoris ([facility] V24) 05/23/2024 ADD (attention deficit disorder) 05/23/2024 Type 2 diabetes mellitus ([facility] V24, [facility] V 28) 05/23/2024 Neuropathy associated with endocrine disorder ([facility] V24) 05/23/2024 Bilateral carotid artery stenosis 05/23/2024 Primary hypertension 05/23/2024 Anxiety 05/23/2024 Depression 05/23/2024 Chronic low back pain 05/23/2024 Surgical History Surgery Date Site/Laterality Comments TOE AMPUTATION CAROTID ENDARTERECTOMY COLONOSCOPY 07/01/2016 nl, tics, hemorrhoids ESOPHAGOGASTRODUODENOSCOPY 07/01/2016 nl CHOLECYSTECTOMY Medical History Medical History Date Comments GERD (gastroesophageal reflux disease) Irritable bowel syndrome with diarrhea HTN (hypertension) Diabetes ([facility] V24, [facility] V28) Hyperlipidemia Chronic back pain PVD (peripheral vascular disease) ([facility] V24) Family History Medical History [...] 11/09/2024 2:47 PM EDT Plan of Treatment Upcoming Encounters Date Type Department Care Team (Late st Contact Info) Description 01/02/2026 3:20 PM EDT Office Visit Gastroenterology - [address] [facility] [address] [place] [id number] Nurys Martinez NP [address] [facility] [address] [place] [address] Health Maintenance Due Date Last Done Comments [...] 2025 , 05/06/2022, 05/29/2021, Additional history exists COVID-19 Vaccine ( season) 2025 03/04/2025, 2024, 06/11/2022, Additional history exists Diabetes: Annual GFR (Glomerular [...] [facility] Potassium 4.4 3.5 - [...] [facility] Comment:Calculation based on the [...] 08/25/2024 3:58 PM EST us Eryn Lauren TECHNICAL ADVISOR LAB BLOOD ORDERABLES Final Re sult [facility] [address] [place] [address], * COLONOSCOPY (07/01/2016 9:36 AM EST) Anatomical Region Laterality Modality Endoscopy Historical Provider GI~PROCEDURE ORDERABLES F inal Result from Last 3 Months or Most Recently Relevant to Health Maintenance Insurance AETNA MEDICARE ADVANTAGE MEDICAID - [place] Care Teams Patternmaker Apprentice Wood Relationship Specialty Start Date End Date Diandra Grady MD [address] [place] [address] Dr Carter [address] [facility] [place] [address] PCP - General Internal Medicine 07/15/21
--- OUTSIDE RECORDS SUMMARY | 2025-06-02 15:46 | XMS_ITS | Patient Health Record ---
Author Organization [facility] Address [address] [facility] [place] [address] Care Team Providers Care Supervisor Printing Shop Name Role Phone Diandra Grady Primary Care Provider Unavailabl e Black, Camryn Unavailable [phone] Reason For Referral No Information Medications Medication [...] Problem Acquired hammer toe of right foot (2071131461984314 ) Other hammer toe(s) (acquired), right foot (M20.41) Active confirmed Problem Acquired hammer toe of left foot ([id number] ) Other hammer toe(s) (acquired), left foot (M20.42) Active confirmed Problem Polyneuropathy due to type 2 diabetes mellitus (645856264) Type 2 diabetes mellitus with diabetic polyneuropathy (E11.42) Active confirmed Encounters Encounter Location Date Provider Diagnosis [facility] [address] 09/06/2024 [facility] [address] [address] 10/27/2024 Camryn Lazaro [facility] [address] [address] 02/14/2025 Camryn Lazaro [facility] [address] 03/01/2025 Camryn Lazaro Plan Of Treatment Pending Test Test Name Order Date [id number] NAIL, 6 OR MORE 10/09/2015 [id number] NAIL, 6 OR MORE 11/01/2015 58687-XXPHDWE NAIL, 6 OR MORE 01/02/2017 20611-[id number] NAIL, 6 OR MORE 08/10/2017 [id number]-KRFOTIT NAIL, 1-5 12/25/2015 62282-[id number] NAIL, 1-5 01/09/2016 07020- Debride <25 sq cm 10/09/2015 79156-[id number] SKIN/TISSUE 01/09/2016 96045-XSIZDTF SKIN/TISSUE 11/01/2015 82142-[id number] SKIN/TISSUE 11/29/2015 66566-QCKTJGZ SKIN/TISSUE 12/25/2015 18317-HQDL SKIN LESIONS, OVER 4 01/03/20 17 37591-KVKP SKIN LESIONS, OVER 4 08/10/19 18 01112-XAOA SKIN LESIONS, 2 TO 4 10/09/19 16 Insurance Providers Payer Name Payer Address Payer Phone Subscriber Number Group Number Insured Name Patient Relationship to Insured Coverage Start Date Coverage End Date AARP Medicare Complete [address] [address] [place] [address] [phone] [id number] Lena Bill Self - patient is the insured Medical (General) History Medical History History ICD Code Anxiety Arthritis Cataracts Depression type II diabetes Neuropathy High blood pressure Headaches Psychiatric disorder Back,Hip,and Knee pain Reflux Measles Mumps Chicken pox Surgical History Surgery Date(Month/Year) Stent at [facility] 11-23-2015 Hospitalization History Reason Date(Month/Year) [facility] - stent iliac artery & amputati on of toe 12/2015 [facility] Left Carotid artery 07/21/17
[2025-06-02 16:13] LABS: MANUAL DIFF FLAG NO
[2025-06-02 17:07] LABS: Hematocrit 43.9 % (37.0-47.0); Hemoglobin 13.9 g/dl (12.0-16.0); Imm Gran Abs Auto 0.10 X10*3/uL (0.00-0.03); Imm Gran Pct Auto 1.0 % (0.0-0.4); Lymphocytes Absolute Auto 3.7 X10*3/uL (1.2-4.9); Mean Corpuscular HGB Conc 31.7 g/dl (31.0-35.0); Mean Corpuscular Hemoglobin 28.1 pg (27.0-33.0); Mean Corpuscular Volume 88.9 fL (80.0-98.0); NRBC Abs Auto 0.000 X10*3/uL (0.0-0.012); NRBC Pct Auto 0.0 /100WBC (0.0-0.2); Platelet Count 381 X10*3/uL (160-400); Red Blood Count 4.94 X10*6/uL (4.20-5.50); Reticulocytes Absolute 0.067 X10*6/uL (0.026-0.095); White Blood Count 10.5 X10*3/uL (4.8-10.8)
[2025-06-02 17:14] LABS: Appearance Urine Clear; Glucose Urine UA >=1000 mg/dL (Negative); PH 6.0 (5.0-9.0); Specific Gravity - Urine 1.015 (1.005-1.025); UMIC TRIGGER UACC YES
[2025-06-02 17:46] LABS: Microalbum/Creatinine Ratio Ur 606.1 ug/mg cr (<30)
[2025-06-02 17:57] LABS: Alanine Aminotransferase 13 U/L (0-31); Albumin Level 4.4 g/dL (3.5-5.0); Alkaline Phosphatase 89 U/L (39-117); Anion Gap 13 (12-20); Aspartate Amino Transferase 21 U/L (5-31); Blood Urea Nitrogen 22 mg/dL (9-16); Calcium 9.9 mg/dL (8.4-10.2); Carbon Dioxide 27 mmol/L (22-29); Chloride 102 mmol/L (96-108); Cholesterol 305 mg/dL (<200); Estimated Glomerular Filt Rate 38; HDL Cholesterol 50 mg/dL (>40); Iron 74 mcg/dL (30-160); Percent Iron Saturation 22 % (15-50); Potassium 4.7 mmol/L (3.3-5.1); Sodium 137 mmol/L (135-145); Total Iron Binding Capacity 344 mcg/dL (228-428); Total Protein 7.8 g/dL (6.5-8.0); Triglycerides 359 mg/dL (<150); Unsaturated Iron Binding 270 ug/dL
[2025-06-02 18:10] LABS: Ferritin 55 ng/mL (10-250); Free T4 (Free Thyroxine) 1.11 ng/dL (0.71-1.85)
[2025-06-02 18:12] LABS: Thyroid Stimulating Hormone 1.58 uIU/mL (0.32-4.0)
[2025-06-02 18:23] LABS: Folate 8.5 ng/mL (> or = 4.0); Vitamin B12 301 pg/mL (200-900)
[2025-06-06 20:23] LABS: Immunoglobulin A 308 mg/dL (70-320)
== END 2025-06-02 15:43 | disposition home or self-care (01) ==
LOC: HO.LAB 15:42
PROVIDERS: PCP Internal Medicine; Visit Provider Student in an Organized Health Care Education/Training Program
DX: I21.4 Non-ST elevation (NSTEMI) myocardial infarction (principal); E11.65 Type 2 diabetes mellitus with hyperglycemia; R15.9 Full incontinence of feces; R19.7 Diarrhea, unspecified; L65.9 Nonscarring hair loss, unspecified; E78.00 Pure hypercholesterolemia, unspecified; Z13.21 Encounter for screening for nutritional disorder
CPT/HCPCS: 36415; 80053; 80061; 81001; 82043; 82306; 82570; 82607; 82728; 82746; 82784; 83036; 83540; 84439; 84443; 85025; 85045; 86364

== ENCOUNTER 2025-06-05 09:31 | Outpatient (AMB) | payer MEDICARE, MEDICAID, SELFPAY ==
--- NOTE | 2025-06-05 09:32 | MHC.OFFVIS ---
Vital Signs 06/05/25 09:39 Height 5 ft 7 in Weight 126 lb BMI 19.7 BP 112/57 L Blood Pressure Location Lt brachial Position Sitting Pulse 102 H Pulse Oximetry (%) 96 Oxygen Delivery Method Room Air Intake Visit Reasons: Full incontinence of feces Intake Note: Patient new consult for full incontinence of feces. Patient cc: full incotinence of fecal/soft stool. Denies any other GI issues. Internist Medical Doctor Md Required: No Accompanied by: Spouse Allergies No Known Allergies Allergy (Verified 06/05/25 09:32) HPI Comments Details: 70 y.o F with PMH of CAD, T2DM, tobacco use disorder, panc tail cyst who is coming in to establish her care with [facility]. Pt was prev est with Dr Bales who is moving practice so pt has been referred to us. Reports main CC is fecal incontinence. Describes it as passive smearing in her underwear at least 1-2 times per day. Onset almost 6 months ago. No abd pain or pelvic pain with this. No blood in stool. No mucus passage. Stools are otherwise infrequent may be 1-2 times a week. On review of chart, pt was also noted to have a note of 8 mm panc tail cyst with PD dilation to 4 mm in head of pancreas. Pt did not recall this finding and does not think she has seen Dr Bales since this MRI in aug 2024. She does smoke 0.5 PPD, was smoking 2 PPD 6 months ago. Occ etOH use. No hx of pancreatitis that she can recall. No unintentional weight loss, reports has always had a low-normal BMI. Prev colo: 05/01/16: Brandie Rivero - [place] diverticulosis. Excellent bowel prep. Repeat rec'd 10 years. [facility] Medical History Anxiety COPD (chronic obstructive pulmonary disease) Right iliac artery stenosis Osteoarthritis Hypercholesterolemia Coronary artery disease Attention deficit disorder Right radial fracture Pulmonary nodule Diabetic nephropathy Carotid stenosis Anxiety and depression Hypertension Type 2 diabetes mellitus with hyperglycemia Lumbar spondylosis Surgical History History of tooth extraction H/O endarterectomy Amputation toe Family History Father Stroke Mother Pancreatic cancer Son Sleep apnea Social History Housing: House Alcohol intake: current Alcohol intake frequency: holidays/special occasions only Alcohol type: wine Patient Tobacco Use Status: Current everyday Tobacco user Tobacco use type: Cigarette Cigarettes Per Day: 3 e-Cigarette/Vaping Use: Never Used Second Hand Smoke Exposure: Yes service: No Current occupational status: unemployed Cognitive needs: No Hearing needs: No Vision needs: Yes Review of Systems Const All systems reviewed & are unremarkable except as noted in HPI and below Physical Exam Exam Exam: Elderly female undernourished clubbing noted in nails abd soft, nontender, nondistended rectal: anal tag, small ext hemorrhoids, stool in rectal vault Vital Signs: Last Vital Signs Pulse 102 H 06/05/25 09:39 BP 112/57 L 06/05/25 09:39 Pulse Ox 96 06/05/25 09:39 Oxygen Delivery Method Room Air 06/05/25 09:39 BMI result Body Mass Index 19.7 Assessment & Plan Assessment & Plan (1) Fecal incontinence: Code(s): R15.9 - Full incontinence of feces Category: Medical Qualifiers: Fecal incontinence type: unspecified Qualified Code(s): R15.9 - Full incontinence of feces (2) Pancreatic cyst: Code(s): K86.2 - Cyst of pancreas Category: Medical Plan 1. Fecal incontinence: Passive. Based on presentation appears to be from overflow incontinence being exacerbated by imodium. Will check KUB to confirm fecal loading. Reviewed with the pt to HOLD any antidiarrheals and start miralax instead. Add fiber as bulking agent. Timed evacuations to be reviewed in future if has minimal response to above. Can also review colo at that time if sx persistent. 2. Panc cyst Noted on MRI abd 08/2024 which in turn was to follow up on inpatient finding in [facility] ([facility]) when pt was admitted in Fall 2023 for fall, NSTEMI. MRI pancreas protocol ordered. Given significant comorbidities, will likely not be a candidate for future surveillance. Follow up 2 months Orders: Orders XR KUB Today R15.9 - Full incontinence of feces MR abdomen wo/w con Today K86.2 - Cyst of pancreas Medications: New wheat dextrin (Benefiber Healthy Shape) 5 grams PO DAILY 500 grams 2RF 90 days polyethylene glycol 3350 (Miralax) 17 grams PO DAILY 238 grams 3RF 90 days Patient Instructions: 1. Stool leakage is because of constipation. We recommend STOPPING loperamide. 2. Start miralax one capful mixed in a cup of water daily. If you start experiencing loose BMs with this, you may take it every other day. 3. Please go to Radiology and get the xray done today. 4. Radiology will call you to book the MRI for the pancreas. 5. Follow up in 2 months. Coding Level of Care Code Complex visit Add On G2211 Diagnoses Incontinence of feces, unspecified fecal incontinence type R15.9 Fecal incontinence type: unspecified Pancreatic cyst K86.2
[2025-06-05 09:39] VITALS: BP 112/57; PULSE 102; O2SAT 96; BMI 19.7
--- OUTSIDE RECORDS SUMMARY | 2025-06-05 10:55 | XMS_ITS | Clinical Summary ---
Author Organization [facility] Address [address] [address] Phone Care Team Providers Care Air Duct Mechanic Name Role Phone Unavailable Primary Care Provider [...] Insurance Medicaid [place] Aetna MCR Adv PPO ([id number])
--- OUTSIDE RECORDS SUMMARY | 2025-06-05 10:55 | XMS_ITS | Clinical Summary ---
Author Organization [facility] [address] [facility] Address [address] [place] [address] Phone Care Team Providers Care Clinic Office Assistant Name Role Phone Diandra Grady MD Primary Care Provider [phone] Allergies No known active allergies Medications Trulicity [...] deficit disorder) 05/23/2024 Type 2 diabetes mellitus ([facility] V24, [facility] V 28) 05/23/2024 Neuropathy associated with endocrine disorder ([facility] [place] V24) 05/23/2024 Bilateral carotid artery stenosis 05/23/2024 Primary hypertension 05/23/2024 Anxiety 05/23/2024 Depression 05/23/2024 Chronic low back pain 05/23/2024 Encounters Date Type Department Care Team Description 06/05/2025 Telephone Gastroenterology - [place] [address] [place] [address] Nurys Martinez NP from Last 3 Months Surgical History Surgery Date Site/Laterality Comments TOE AMPUTATION CAROTID ENDARTERECTOMY COLONOSCOPY 07/01/2016 nl, tics, hemorrhoids ESOPHAGOGASTRODUODENOSCOPY 07/01/2016 nl CHOLECYSTECTOMY Medical History Medical History Date Comments GERD (gastroesophageal reflux disease) Irritable bowel syndrome with diarrhea HTN (hypertension) Diabetes ([facility] V24, [facility] V28) Hyperlipidemia Chronic back pain PVD (peripheral vascular disease) ([facility] V24) Family History Medical History Relation Name [...] [address] [place] [address] Nurys Martinez, PAWAN [address] [facility] [address] [place] [address] Health Maintenance Due Date Last Done Comments [...] 08/25/2024 4:32 PM EST [facility] eGFR 40(L) >=60 mL/min/1. [...] METHOD 08/25/2024 4:32 PM [facility] ALT (SGPT) 15 10 - 60 unit/L LAB CHEMISTRY METHOD 08/25/2024 4:32 PM [facility] Alkaline Phosphatase 76 42 - 121 unit/L LAB CHEMISTRY METHOD 08/25/2024 4:32 PM [facility] Total Protein 6.8 6.0 - 8.0 g/dL LAB CHEMISTRY METHOD 08/25/2024 4:32 PM [facility] Albumin 3.5 3.2 - 5.0 g/dL LAB CHEMISTRY METHOD 08/25/2024 4:32 PM [facility] Total Bilirubin 0.3 0.0 - 1.4 mg/dL LAB CHEMISTRY METHOD 08/25/2024 4:32 PM [facility] Blood Venous blood specimen / Unknown Venipuncture / Unknown 08/25/2024 3:19 PM EST 08/25/2024 3:58 PM EST us Eryn Lauren NP LAB BLOOD ORDERABLES Final Re sult [facility] [address] [place] [address], * COLONOSCOPY (07/01/2016 9:36 AM EST) Anatomical Region Laterality Modality Endoscopy us Historical Provider GI~PROCEDURE ORDERABLES F inal Result from Last 3 Months or Most Recently Relevant to Health Maintenance Insurance AETNA MEDICARE ADVANTAGE MEDICAID - [place] Care Teams Clinic Office Assistant Relationship Specialty Start Date End Date Diandra Grady MD [address] [place] [address] Dr Carter [address] [facility] [place] [address] PCP - General Internal Medicine 07/15/21
--- OUTSIDE RECORDS SUMMARY | 2025-06-05 10:55 | XMS_ITS | Clinical Summary ---
Author Organization [facility] Address [address] [facility] [address] [place] [address] Phone Care Team Providers Care Salesperson Art Objects Name Role Phone Unavailable Primary Care Provider [...] It is not the complete legal health record.[facility]
--- OUTSIDE RECORDS SUMMARY | 2025-06-05 10:55 | XMS_ITS | Patient Health Record ---
Author Organization [facility] Address [address] [facility] [place] [address] Care Team Providers Care Finance Vice President Name Role Phone Diandra Grady Primary Care Provider Unavailabl e Black, Camryn Unavailable [phone] Reason For Referral No Information Medications Medication [...] Problem Acquired hammer toe of right foot ([id number] ) Other hammer toe(s) (acquired), right foot (M20.41) Active confirmed Problem Acquired hammer toe of left foot (1309560519475524 ) Other hammer toe(s) (acquired), left foot (M20.42) Active confirmed Problem Polyneuropathy due to type 2 diabetes mellitus (094645496) Type 2 diabetes mellitus with diabetic polyneuropathy (E11.42) Active confirmed Encounters Encounter Location Date Provider Diagnosis [facility] [address] 09/06/2024 [facility] [address] [address] 10/27/2024 Camryn Lazaro [facility] [address] [address] 02/14/2025 Camryn Lazaro [facility] [address] 03/01/2025 Camryn Lazaro Plan Of Treatment Pending Test Test Name Order Date [id number] NAIL, 6 OR MORE 08/10/2017 [id number] NAIL, 6 OR MORE 01/02/2017 55981-[id number] NAIL, 6 OR MORE 11/01/2015 54067-VMAMSQH NAIL, 6 OR MORE 10/09/2015 89760-OCXUMOV NAIL, 1-5 12/25/2015 [id number] NAIL, 1-5 01/09/2016 88955- Debride <25 sq cm 10/09/2015 93554-PCKJJIA SKIN/TISSUE 11/01/2015 61343-JTQJMIK SKIN/TISSUE 01/09/2016 43369-LCDGMCC SKIN/TISSUE 12/25/2015 09306-BTOZCOQ SKIN/TISSUE 11/29/2015 67164-VMTN SKIN LESIONS, OVER 4 08/10/19 18 13194-TVLI SKIN LESIONS, OVER 4 01/03/20 17 29751-XWHR SKIN LESIONS, 2 TO 4 10/09/19 16 Insurance Providers Payer Name Payer Address Payer Phone Subscriber Number Group Number Insured Name Patient Relationship to Insured Coverage Start Date Coverage End Date AARP Medicare Complete [address] [address] [place] [address] [phone] [id number] Lena Bill Self - patient is the insured Medical (General) History Medical History History ICD Code Anxiety Arthritis Cataracts Depression type II diabetes Neuropathy High blood pressure Headaches Psychiatric disorder Back,Hip,and Knee pain Reflux Measles Mumps Chicken pox Surgical History Surgery Date(Month/Year) Stent at [facility] 11-23-2015 Hospitalization History Reason Date(Month/Year) [facility] - stent iliac artery & amputati on of toe 12/2015 [facility] Left Carotid artery 07/21/17
== END 2025-06-05 10:11 | disposition home or self-care (01) ==
PROVIDERS: PCP Internal Medicine; Visit Provider Internal Medicine
DX: R15.9 Full incontinence of feces (principal); K86.2 Cyst of pancreas
CPT/HCPCS: 99203; G2211

== ENCOUNTER → 2025-06-05 09:31 | Outpatient (BNVA) | payer MEDICARE, MEDICAID, SELFPAY | PROVIDERS: PCP Internal Medicine; Visit Provider Internal Medicine | DX: R15.9 Full incontinence of feces (principal); K86.2 Cyst of pancreas | CPT/HCPCS: 99202 ==

== ENCOUNTER 2025-06-12 10:31 | Outpatient (REF) | payer MEDICARE, MEDICAID, SELFPAY ==
--- NOTE | ~2025-06-12 | XR_ITS ---
EXAMINATION: XR CHEST CLINICAL INFORMATION: R06.02 - Shortness of breath COMPARISON: CT chest January 02, 2020 and MRI abdomen 08-17-24 TECHNIQUE: 2 views of the chest were obtained. FINDINGS: Lungs are hyperexpanded. Coarse linear interstitial markings in the lung bases, more on the left. Heart and mediastinal contours are within normal limits. There is coarse calcification of the mitral annulus. Atherosclerotic ossification is visible in the aortic knob. There is no blunting of costophrenic angles. There are numerous healed right rib fractures There are two chronic superior endplate compression fractures involving L1 and L2. XR/XR chest 2V IMPRESSION: Hyperexpanded lungs likely with underlying COPD/emphysema. Fine coarse interstitial markings in the lung bases are probably chronic in nature, though an acute pneumonitis or other interstitial process is not ruled out. Chronic right rib fractures and chronic L1 and L2 compression fractures. Electronically signed by: Murali Rutherford MD 06/12/2025 12:48 PM [facility]
--- OUTSIDE RECORDS SUMMARY | 2025-06-12 15:30 | XMS_ITS | Clinical Summary ---
Author Organization [facility] Address [address] [address] Phone Care Team Providers Care Hand Cloth Cutter Name Role Phone Unavailable Primary Care Provider [...] times a day Active Chantix Continuing Month Raturo 1 MG tablet Take 1 mg by [...] Insurance Medicaid [place] Aetna MCR Adv PPO ([id number])
--- OUTSIDE RECORDS SUMMARY | 2025-06-12 15:30 | XMS_ITS | Clinical Summary ---
Author Organization [facility] [address] [facility] Address [address] [place] [address] Phone Care Team Providers Care Plumber Supervisor Name Role Phone Diandra Grady MD Primary Care Provider [phone] Allergies No known active allergies Medications Trulicity [...] Coronary artery disease with angina pectoris ([facility] V24) 05/23/2024 ADD (attention deficit disorder) 05/23/2024 Type 2 diabetes mellitus ([facility] V24, [facility] V 28) 05/23/2024 Neuropathy associated with endocrine disorder ([facility] V24) 05/23/2024 Bilateral carotid artery stenosis 05/23/2024 Primary hypertension 05/23/2024 Anxiety 05/23/2024 Depression 05/23/2024 Chronic low back pain 05/23/2024 Encounters Date Type Department Care Team Description 06/05/2025 Telephone Gastroenterology - [place] [address] [place] [address] Nurys Martinez NP from Last 3 Months Surgical History Surgery Date Site/Laterality Comments TOE AMPUTATION CAROTID ENDARTERECTOMY COLONOSCOPY 07/01/2016 nl, tics, hemorrhoids ESOPHAGOGASTRODUODENOSCOPY 07/01/2016 nl CHOLECYSTECTOMY Medical History Medical History Date Comments GERD (gastroesophageal reflux disease) Irritable bowel syndrome with diarrhea HTN (hypertension) Diabetes ([facility] V24, [facility] V28) Hyperlipidemia Chronic back pain PVD (peripheral vascular disease) ([facility] V24) Family History [...] [address] [place] [address] Nurys Martinez, PAWAN [address] [facility] [address] [place] [address] Health Maintenance Due Date Last Done Comments [...] LAB CHEMISTRY METHOD 08/25/2024 4:[address] [facility] eGFR 40(L) >=60 [...] 08/25/2024 4:[address] [facility] ALT (SGPT) 15 10 - 60 unit/L LAB CHEMISTRY METHOD 08/25/2024 4:[address] [facility] Alkaline Phosphatase 76 42 - 121 unit/L LAB CHEMISTRY METHOD 08/25/2024 4:[address] [facility] Total Protein 6.8 6.0 - 8.0 g/dL LAB CHEMISTRY METHOD 08/25/2024 4:[address] [facility] Albumin 3.5 3.2 - 5.0 [...] Re sult [facility] [address] [place] [address], * COLONOSCOPY (07/01/2016 9:36 AM EST) Anatomical Region Laterality Modality Endoscopy us Historical Provider GI~PROCEDURE ORDERABLES F inal Result from Last 3 Months or Most Recently Relevant to Health Maintenance Insurance AETNA MEDICARE ADVANTAGE MEDICAID - [place] Care Teams Plumber Supervisor Relationship Specialty Start Date End Date Diandra Grady MD [address] [place] [address] Dr Carter [address] [facility] [place] [address] PCP - General Internal Medicine 07/15/21
--- OUTSIDE RECORDS SUMMARY | 2025-06-12 15:30 | XMS_ITS | Encounter Summary ---
Author Organization [facility] [place] [address] Care Team Providers Care Tool Crib Supervisor Name Role Phone Diadnra Grady MD Primary Care Provider [phone] Reason for Visit * Reason Onset Date Comments Appointment 06/05/2025 Encounter Details Date Type Department Care Team ([facility] st Contact Info) Description 06/05/2025 Telephone Gastroenterology - [place] 175 [facility] 175 [facility] [address] [place] [address] Nurys Martinez, PAWAN [address] [facility] [address] [place] [address] Social History Tobacco Use Types Packs/Day Years Used Date Smoking Tobacco: Former Cigarettes Smokeless Tobacco: Never Alcohol Use Standard Drinks/Week Comments Yes 0 (1 standard drink = 0.6 oz pur e alcohol) socially Comments Unknown Sex and Gender Information Value Date Recorded Sex Assigned at Not on file Legal Sex Female 3:19 PM EST Gender Identity Not on file Sexual Orientation Not on file documented as of this encounter Progress Notes * Myra Cardoza - 06/05/2025 10:51 AM EST Re[facility] [place] [facility] for incontin[place] of feces. Referral scanned into chart and patient is already booked in December for a follow up (established patient). Left message with patients son to get more information to send message to the clinical team to get on cancellation list to be seen sooner as referral was marked as urgent. documented in this encounter Plan of Treatment Upcoming Encounters Date Type Department Care Team (Late st Contact Info) Description 01/02/2026 3:20 PM EDT Office Visit Gastroenterology - [address] [place] [address] Nurys Martinez, PAWAN [address] [facility] [address] [place] [address] documented as of this encounter Visit Diagnoses Not on filedocumented in this encounter Care Teams Tool Crib Supervisor Relationship Specialty Start Date End Date Miguel A, MD Diandra [address] [place] [address] [address] [facility] [place] [address] PCP - General Internal Medicine 07/15/21 documented as of this encounter
== END 2025-06-12 10:32 | disposition home or self-care (01) ==
LOC: HO.XRAY 10:31
PROVIDERS: PCP Internal Medicine
DX: R06.02 Shortness of breath (principal); J44.9 Chronic obstructive pulmonary disease, unspecified
CPT/HCPCS: 71046; 99212

== ENCOUNTER 2025-06-12 10:31 | Outpatient (AMB) | payer MEDICARE, MEDICAID, SELFPAY ==
[2025-06-12 10:46] VITALS: BP 104/52; PULSE 97; O2SAT 95
--- NOTE | 2025-06-12 10:46 | MHC.PC.OV ---
Vital Signs 06/12/25 10:46 Height 5 ft 7 in Weight 128 lb BMI 20.0 BP 104/52 L Blood Pressure Location Lt brachial Position Sitting Pulse 97 Pulse Source Pulse Oximeter Pulse Oximetry (%) 95 Oxygen Delivery Method Room Air Intake Visit Reasons: Blood sugar Allergies No Known Allergies Allergy (Verified 06/12/25 10:51) Medication List - Last Reconciled 06/12/25 by Della Campos PA-C albuterol sulfate 90 mcg/actuation (Ventolin HFA) 2 puffs inhalation Q6H PRN alprazolam 2 mg PO BID-TID PRN aspirin (Adult Low Dose Aspirin) 81 mg PO DAILY atomoxetine 25 mg PO QAM atomoxetine 60 mg PO QAM blood sugar diagnostic As directed check blood sugars q.day blood-glucose meter As directed blood-glucose sensor ([employer] G7 Sensor device) As directed blood-glucose,bullet maker,cont (Dexcom G7 Philosophy And Religion Instructor) As directed diphenoxylate-atropine 2.5-0.025 mg tabs PO BID dulaglutide 0.75 mg (0.5 mL) subcut QWEEK 30 days empagliflozin 25 mg PO QAM ezetimibe (Zetia) 10 mg PO DAILY 30 days flash glucose scanning reader (Kyphayle Mich 2 Ballinger) As directed flash glucose sensor (ID8-MobileStyle Mich 2 Sensor kit) As directed jgdpzcacrji-ogusupeiu-ptcgwlec 200-62.5-25 mcg (Trelegy Ellipta) 1 inh inhalation DAILY hydrocortisone 2.5% 1 appl [place] BID PRN hydroxyzine HCl 25 mg PO DAILY hydroxyzine HCl mg PO BEDTIME ipratropium-albuterol 0.5 mg-3 mg(2.5 mg base)/3 mL 3 mL inhalation Q4-6H PRN 30 days lancets As directed loperamide 2 mg PO TID metformin ER 1,000 mg (2 x 500 mg) PO BID metoprolol succinate ER (Toprol XL) 50 mg PO DAILY mupirocin 2% 1 appl topical 3XW mupirocin calcium 2% 1 appl topical BID naloxone 4 mg/actuation (Narcan) 4 mg intranasal Q3M PRN nicotine 1 patch transdermal DAILY nitroglycerin 0.4 mg PO Every 5 minutes x3; omeprazole 40 mg PO DAILY ondansetron 8 mg PO Q8H PRN oxycodone 15 mg PO Q6H PRN 30 days pen needle, diabetic As directed polyethylene glycol 3350 (Miralax) 17 grams PO DAILY 90 days prednisone 5 mg PO Q OTHER DAY 60 days psyllium husk (Fiber (psyllium husk)) 1.04 grams (2 x 0.52 gram) PO DAILY rosuvastatin 40 mg PO DAILY 30 days trazodone 50 mg PO BEDTIME PRN varenicline tartrate (Chantix Starting Month Box) PO PER PKG DIR wheat dextrin (Benefiber Healthy Shape) 5 grams PO DAILY 90 days Tobacco use date assessed: 05/31/25 Fall risk assessment: No Falls in past year Last assessed Fall Risk: 06/12/25 Dental Screening Dental Screen Date: 05/31/25 HPI Blood sugar HPI Details 70-year-old female with past medical history of diabetes mellitus, hypertension, tobacco abuse, coronary artery disease, hypercholesterolemia, asthma, COPD last seen 05/2025 coming in for acute problem. Presenting with worsening difficulty breathing for a couple of weeks, which has become more severe in the last couple of days. The patient's current respiratory medications include Trelegy once daily, which is at the highest dose, and an albuterol inhaler, which is used once a day. The patient is also prescribed prednisone by a enterprise solutions architect, to be taken every other day, but has been taking it once daily. The patient's home nebulizer machine is currently broken and not in use. [facility] Medical History Anxiety COPD (chronic obstructive pulmonary disease) Right iliac artery stenosis Osteoarthritis Hypercholesterolemia Coronary artery disease Attention deficit disorder Right radial fracture Pulmonary nodule Diabetic nephropathy Carotid stenosis Anxiety and depression Hypertension Type 2 diabetes mellitus with hyperglycemia Lumbar spondylosis Surgical History History of tooth extraction H/O endarterectomy Amputation toe Family History Father Stroke Mother Pancreatic cancer Son Sleep apnea Social History Housing: House Alcohol intake: current Alcohol intake frequency: holidays/special occasions only Alcohol type: wine Patient Tobacco Use Status: Current everyday Tobacco user Tobacco use type: Cigarette Cigarettes Per Day: 3 e-Cigarette/Vaping Use: Never Used Second Hand Smoke Exposure: Yes service: No Current occupational status: unemployed Cognitive needs: No Hearing needs: No Vision needs: Yes Questionnaire Thrive Questionnaire Date Thrive assessed: 12/02/24 I am a: Patient What is your living situation today?: I have a steady place to live Within the past 12 months, did the food you bought not last and you didn't have the money to get more?: I choose not to answer this question Within the past 12 months, did you worry whether your food would run out before you got money to buy more?: Never true Do you have trouble paying for medicines?: No Do you have trouble getting transportation to medical appointments?: No Do you have trouble paying your heating and electricity bill?: No Do you have trouble taking care of your child, family member or friend?: No Do you have trouble with day-to-day activities such as bathing, preparing meals, shopping, managing finances, etc.?: No Are you currently unemployed and looking for a job?: Yes Are you interested in more education?: Yes Please select the resources that you would like help with: None Currently or been in a relationship where the following occur: No concerns reported THRIVE Score: 0 PATRIC-7 AMB Questionnaire PATRIC-7 Date PATRIC - 7 assessed: 05/31/25 Source: Developed by Drs. George Andrew, Marion Vasques, Milad Goncalves and colleagues, with an educational jaylen from [employer]. Review of Systems Const Denies body aches, Denies chills, Denies fever(s), Denies headache(s) and Denies poor appetite Eyes Reports no additional complaints ENT Denies dizziness and Denies headache(s) Card Denies chest pain, Denies edema, Denies lightheadedness, Denies dyspnea and Reports dyspnea on exertion Resp Reports change in phlegm color, Denies cough, Reports excessive phlegm production, Denies dyspnea and Reports dyspnea on exertion GI Denies abdominal pain, Denies constipation, Denies diarrhea, Denies nausea and Denies vomiting Reports no additional complaints Musc Reports no additional complaints and Denies abnormal gait Skin/Breast Reports system reviewed and no additional complaints, except as documented Neuro Denies abnormal gait, Denies dizziness and Denies headache(s) Psych Reports no additional complaints Physical exam (Primary Care) Vital Signs: Last Vital Signs Pulse 97 06/12/25 10:46 BP 104/52 L 06/12/25 10:46 Pulse Ox 95 06/12/25 10:46 Oxygen Delivery Method Room Air 06/12/25 10:46 BMI result Body Mass Index 20.0 Tobacco/Smoking Status: Tobacco use Status Tobacco use date assessed 05/31/25 06/12/25 10:49 Patient Tobacco Use Status Current everyday Tobacco 06/12/25 10:49 Tobacco use type Cigarette 06/12/25 10:49 e-Cigarette/Vaping Use Never Used 06/12/25 10:49 Thrive Assessment: Date of Thrive Assessment Date Thrive assessed 12/02/24 06/12/25 10:49 Currently or been in a relationship where the following occur: No concerns reported Const General: cooperative, healthy appearing, comfortable and no acute distress Orientation/consciousness: patient oriented x3 HENMT Head: Yes normocephalic Ears: hearing grossly normal bilaterally General nose exam: Normal external nose present Eyes General: appearance normal, both eyes and all related structures Conjunctivae: conjunctivae normal Neck Neck: Yes full ROM and Yes no lymphadenopathy Resp Effort & Inspection: normal respiratory effort Auscultation: no crackles, no rales, no rhonchi and wheezes Cardio Rate: regular rate Rhythm: regular rhythm Skin General skin exam: no rashes or lesions noted Neuro General: patient oriented x3 Gait exam (Neuro): Normal gait present Extrem General: Yes normal to inspection, Yes full ROM and No edema Psych Affect: normal affect Attitude: cooperative Insight: Good insight present (Psych) Judgement: Good judgement present (Psych) Coding Level of Care Code Est Pt Level 3 (61429) Diagnoses Shortness of breath R06.02 Assessment & Plan Assessment & Plan (1) Shortness of breath: Code(s): R06.02 - Shortness of breath Category: Medical Plan: Likely COPD exacerbation. Advised patient to stay compliant with current medications and she was given a nebulizer in the office today with mild improvement in her symptoms. Wheezing did improve mildly with nebulizer treatment. Recommend steroid taper and antibiotic treatment for COPD exacerbation. Plan to obtain x-ray as well to rule out underlying infection. Advised the patient to discontinue the every other day steroid while on the steroid taper and then may resume afterwards. She is also encouraged to follow up with her enterprise solutions architect. Plan This note was constructed using voice recognition software. While every effort has been made to ensure accuracy and bottle machine operator, still areas may have been included sometimes these areas may affect the content or meeting of the given symptoms. Total time spent caring for the patient today was 20 minutes. This includes time spent before the visit reviewing the chart, time spent during the visit, and time spent after the visit and documentation. Patient was informed and verbally consented to the use of an ambient scribe for clinic note documentation during this visit. Orders: Orders XR chest 2V Today J44.9 - Chronic obstructive pulmonary disease, unspecified, R06.02 - Shortness of breath Medications: New amoxicillin-pot clavulanate 500-125 mg 1 tab PO BID 14 tabs 0RF prednisone Take 4 tablets on days 1-2, take 3 tablets on days 3-4, take 2 tablets on days 5-6, take 1 tablet on days 7-8. 10 mg PO DIRECTED 20 tabs 0RF Refilled albuterol sulfate 90 mcg/actuation (Ventolin HFA) 2 puffs inhalation Q6H PRN 8.5 grams 0RF shortness of breath or wheezing Z72.0 - Tobacco use
--- OUTSIDE RECORDS SUMMARY | 2025-06-12 13:21 | XMS_ITS | Clinical Summary ---
Author Organization [facility] Address [address] [facility] [address] [place] [address] Phone Care Team Providers Care Intelligence Officer Basic Name Role Phone Unavailable Primary Care Provider [...] It is not the complete legal health record.[facility]
== END 2025-06-12 12:06 | disposition home or self-care (01) ==
LOC: HO.HMCH 10:32
PROVIDERS: PCP Internal Medicine
DX: R06.02 Shortness of breath (principal)

== ENCOUNTER → 2025-06-12 11:50 | Outpatient (BNV) | payer MEDICARE, MEDICAID, SELFPAY | PROVIDERS: PCP Internal Medicine; Visit Provider Radiology Diagnostic Radiology | DX: S22.41XA Multiple fractures of ribs, right side, initial encounter for closed fracture (principal) | CPT/HCPCS: 71046 ==

== ENCOUNTER 2025-06-21 16:15 | Outpatient (AMB) | payer MEDICARE, MEDICAID, SELFPAY ==
--- NOTE | 2025-06-21 16:24 | A.OFFPC_ITS ---
Vital Signs 06/21/25 16:26 Height 5 ft 7 in Weight 125 lb 14.143 oz BMI 19.7 BP 102/60 Blood Pressure Location Lt brachial Position Sitting Pulse 92 Pulse Source Pulse Oximeter Temp 96.4 F L Temp Source Temporal Artery Scan Pulse Oximetry (%) 97 Oxygen Delivery Method Room Air Intake Visit Reasons: [facility] 06/19 Intake Note: Patient is here for hospital discharge follow up. Patient was discharged from [facility] on 06/19/25. Newspaper Columnist Required: No Test Desk Operator: Present Accompanied by: Spouse Allergies No Known Allergies Allergy (Verified 06/21/25 16:25) Tobacco use date assessed: 06/21/25 Fall risk assessment: No Falls in past year Last assessed Fall Risk: 06/21/25 Dental Screening Dental Screen Date: 05/31/25 HPI HPI Comments History of Present Illness Details Patient is a 70-year-old female with medical history of PID, CAD, hypertension, hyperlipidemia, CKD, type 2 diabetes, COPD, GERD who is presenting for follow-up hospitalization discharge. Patient had presented to the ED at [facility] on 06/17/2025 with altered mental status, found to have UTI with sepsis. Imaging was negative for any acute intracranial pathology. Patient received IV antibiotics, and discharged on Bactrim double strength 1 tablet 3 times a day for 5 more days. No other medication changes were made. Patient reports that she is still feeling sick, not back to her baseline. She reports that she has not received the medication from the pharmacy since discharge, so she has not been taking it since then. Patient was seen here in the clinic on 05/31/2025 for fecal incontinence, during which she had stool studies ordered and referred to GI. Patient has seen GI on 06/05/2025 who believes it is from overflow incontinence being exacerbated by Imodium. Patient was advised to stop Imodium and start MiraLax daily. Patient has been doing so and her symptoms improved. She has not completed that x-ray KUB ordered by GI [facility] Medical History Anxiety COPD (chronic obstructive pulmonary disease) Right iliac artery stenosis Osteoarthritis Hypercholesterolemia Coronary artery disease Attention deficit disorder Right radial fracture Pulmonary nodule Diabetic nephropathy Carotid stenosis Anxiety and depression Hypertension Type 2 diabetes mellitus with hyperglycemia Lumbar spondylosis Surgical History History of tooth extraction H/O endarterectomy Amputation toe Family History Father Stroke Mother Pancreatic cancer Son Sleep apnea Social History Housing: House Alcohol intake: current Alcohol intake frequency: holidays/special occasions only Alcohol type: wine Patient Tobacco Use Status: Current everyday Tobacco user Tobacco use type: Cigarette Cigarette Packs Per Day: 1 Cigarettes Per Day: 20 e-Cigarette/Vaping Use: Never Used Second Hand Smoke Exposure: Yes service: No Current occupational status: unemployed Cognitive needs: Yes (walker) Hearing needs: No Vision needs: Yes Questionnaire Thrive Questionnaire Date Thrive assessed: 12/02/24 I am a: Patient What is your living situation today?: I have a steady place to live Within the past 12 months, did the food you bought not last and you didn't have the money to get more?: I choose not to answer this question Within the past 12 months, did you worry whether your food would run out before you got money to buy more?: Never true Do you have trouble paying for medicines?: No Do you have trouble getting transportation to medical appointments?: No Do you have trouble paying your heating and electricity bill?: No Do you have trouble taking care of your child, family member or friend?: No Do you have trouble with day-to-day activities such as bathing, preparing meals, shopping, managing finances, etc.?: No Are you currently unemployed and looking for a job?: Yes Are you interested in more education?: Yes Please select the resources that you would like help with: None Currently or been in a relationship where the following occur: No concerns reported THRIVE Score: 0 PATRIC-7 AMB Questionnaire PATRIC-7 Date PATRIC - 7 assessed: 05/31/25 Source: Developed by Drs. George Andrew, Marion Vasques, Milad Goncalves and colleagues, with an educational jaylen from [employer]. Physical exam (Primary Care) Vital Signs: Last Vital Signs Temp 96.4 F L 06/21/25 16:26 Pulse 92 06/21/25 16:26 BP 102/60 06/21/25 16:26 Pulse Ox 97 06/21/25 16:26 Oxygen Delivery Method Room Air 06/21/25 16:26 General: Well-appearing, alert, oriented ?3, in no acute distress.. Cardiovascular: RRR, S1-S2 appreciated, no murmurs, rubs or gallops. Respiratory: Lungs clear to auscultation bilaterally, no wheezes, rales or rh onchi. Abdomen: Soft, nontender, nondistended. Normoactive bowel sounds. BMI result Body Mass Index 19.7 Tobacco/Smoking Status: Tobacco use Status Tobacco use date assessed 06/21/25 06/21/25 16:34 Patient Tobacco Use Status Current everyday Tobacco 06/21/25 16:34 Tobacco use type Cigarette 06/21/25 16:34 e-Cigarette/Vaping Use Never Used 06/21/25 16:34 Thrive Assessment: Date of Thrive Assessment Date Thrive assessed 12/02/24 06/21/25 16:34 Currently or been in a relationship where the following occur: No concerns reported Coding Level of Care Code Est Pt Level 4 (01462) Diagnoses Hospital discharge follow-up Z51.89 Incontinence of feces, unspecified fecal incontinence type R15.9 Fecal incontinence type: unspecified Assessment & Plan Assessment & Plan (1) Hospital discharge follow-up: Code(s): Z51.89 - Encounter for other specified aftercare Plan: Patient had presented to the ED at [facility] on 06/17/2025 with altered mental status, found to have UTI with sepsis. Imaging was negative for any acute intracranial pathology. Patient received IV antibiotics, and discharged on 06/19 on Bactrim double strength 1 tablet 3 times a day for 5 more days. Patient states she has not started Bactrim as she has not received it from pharmacy since discharge. I sent a prescription for Bactrim twice a day for 5 days course. However, during the visit, she received a phone call that her medication has just been delivered to her home. - start on Bactrim as prescribed from hospital discharge -will cancel the prescription I sent. (2) Fecal incontinence: Code(s): R15.9 - Full incontinence of feces Category: Medical Qualifiers: Fecal incontinence type: unspecified Qualified Code(s): R15.9 - Full incontinence of feces Plan: Patient was seen here in the clinic on 05/31/2025 for fecal incontinence, during which she had stool studies ordered and referred to GI. Patient has seen GI on 06/05/2025 who believes it is from overflow incontinence being exacerbated by Imodium. Patient was advised to stop Imodium and start MiraLax daily. Patient has been doing so and her symptoms improved. Medications: Discontinued loperamide prescribing for Dr. Rincon Discontinued Reason: Patient no longer taking 2 mg PO TID 180 caps 0RF amoxicillin-pot clavulanate 500-125 mg Discontinued Reason: Patient no longer taking 1 tab PO BID 14 tabs 0RF
[2025-06-21 16:26] VITALS: BP 102/60; PULSE 92; TEMP 35.8; O2SAT 97; BMI 19.7
--- OUTSIDE RECORDS SUMMARY | 2025-06-22 00:50 | XMS_ITS | Clinical Summary ---
Author Organization [facility] [address] [facility] Address [address] [place] [address] Phone Care Team Providers Care Lead Generation Marketing Manager Name Role Phone Diandra Grady MD Primary Care Provider [phone] Allergies No known active allergies Medications Trulicity [...] Care Team Description 06/05/2025 Telephone Gastroenterology - [place] [address] [facility] [address] [place] [address] Nurys Martinze NP from Last 3 Months Surgical History Surgery Date Site/Laterality Comments TOE AMPUTATION CAROTID ENDARTERECTOMY COLONOSCOPY 07/01/2016 nl, tics, hemorrhoids ESOPHAGOGASTRODUODENOSCOPY 07/01/2016 nl CHOLECYSTECTOMY Medical History Medical History Date Comments GERD (gastroesophageal reflux disease) Irritable bowel syndrome with diarrhea HTN (hypertension) Diabetes ([facility] V24, [facility] V28) Hyperlipidemia Chronic back pain PVD (peripheral vascular disease) ([facility] [place]24[place] Family History Medical History Relation Name [...] Office Visit Gastroenterology - [address] [facility] [address] [place] [address] Nurys Martinez, PAWAN 299 [facility] [address] [place] [address] Health Maintenance Due Date Last Done Comments [...] 08/25/2024 3:58 PM EST us Eryn Lauren SENIOR CONTROLS ANALYST LAB BLOOD ORDERABLES Final Re sult [facility] [address] [place] [address], * COLONOSCOPY (07/01/2016 9:36 AM EST) Anatomical Region Laterality Modality Endoscopy Historical Provider GI~PROCEDURE ORDERABLES F inal Result from Last 3 Months or Most Recently Relevant to Health Maintenance Insurance AETNA MEDICARE ADVANTAGE MEDICAID - [place] Care Teams Lead Generation Marketing Manager Relationship Specialty Start Date End Date Diandra Grady MD [address] [place] [address] [address] [facility] [place] [address] PCP - General Internal Medicine 07/15/21
--- OUTSIDE RECORDS SUMMARY | 2025-06-22 00:50 | XMS_ITS | Clinical Summary ---
Author Organization [facility] Address [address] [facility] [address] [place] [address] Phone Care Team Providers Care Labview Programmer Name Role Phone Unavailable Primary Care Provider [...] It is not the complete legal health record.[facility]
--- OUTSIDE RECORDS SUMMARY | 2025-06-22 00:50 | XMS_ITS | Encounter Summary ---
Author Organization [facility] [place] [place] [address] Care Team Providers Care Manager China Name Role Phone Diandra Grady MD Primary Care Provider Reason for Visit * Reason Onset Date Comments Appointment 06/05/2025 Encounter Details Date Type Department Care Team ([facility] st Contact Info) Description 06/05/2025 Telephone Gastroenterology - [place] 175 [facility] 175 [facility] [address] [place] [address] Nurys Martinez, PAWAN [address] [facility] [address] [place] [address] Social History Tobacco Use Types Packs/Day Years [...] 06/05/2025 10:51 AM EST Received records from [facility] for incontinence of feces. Referral scanned into [...] EDT Office Visit Gastroenterology - [address] [place] [address] Nurys Martinez, PAWAN [address] [facility] [address] [place] [address] documented as of this encounter Visit Diagnoses Not on filedocumented in this encounter Care Teams Manager China Relationship Specialty Start Date End Date Miguel A, MD Diandra [address] [place] [address] [address] [facility] [place] [address] PCP - General Internal Medicine 07/15/21 documented as of this encounter
--- OUTSIDE RECORDS SUMMARY | 2025-06-22 00:50 | XMS_ITS | Patient Health Record ---
Author Organization [facility] Address [address] [facility] [place] [address] Care Team Providers Care Painter Touch Up Name Role Phone Diadnra Grady Primary Care Provider Unavailabl e Black, Camryn Unavailable [phone] Reason For Referral No Information Medications Medication [...] Problem Acquired hammer toe of right foot ([id number] ) Other hammer toe(s) (acquired), right foot (M20.41) Active confirmed Problem Acquired hammer toe of left foot ([id number] ) Other hammer toe(s) (acquired), left foot (M20.42) Active confirmed Problem Polyneuropathy due to type 2 diabetes mellitus (217149601) Type 2 diabetes mellitus with diabetic polyneuropathy (E11.42) Active confirmed Encounters Encounter Location Date Provider Diagnosis [facility] [address] 09/06/2024 [facility] [address] [address] 10/27/2024 Camryn Lazaro [facility] [address] [address] 02/14/2025 Camryn Lazaro [facility] [address] 03/01/2025 Camryn Lazaro Plan Of Treatment Pending Test Test Name Order Date [id number] NAIL, 6 OR MORE 10/09/2015 [id number] NAIL, 6 OR MORE 11/01/2015 [id number] NAIL, 6 OR MORE 01/02/2017 [id number] NAIL, 6 OR MORE 08/10/2017 [id number] NAIL, 1-5 12/25/2015 [id number] NAIL, 1-5 01/09/2016 26894- Debride <25 sq cm 10/09/2015 [id number] SKIN/TISSUE 01/09/2016 [id number] SKIN/TISSUE 11/01/2015 20904-[id number] SKIN/TISSUE 11/29/2015 [id number] SKIN/TISSUE 12/25/2015 [id number]-YDQD SKIN LESIONS, OVER 4 01/03/20 17 21414-DAOE SKIN LESIONS, OVER 4 08/10/19 18 82809-[id number] SKIN LESIONS, 2 TO 4 10/09/19 16 Insurance Providers Payer Name Payer Address Payer Phone Subscriber Number Group Number Insured Name Patient Relationship to Insured Coverage Start Date Coverage End Date A[employer] Medicare Complete [address] [address] [place] [address] [id number] Lena Bill Self - patient is the insured Medical (General) History Medical History History ICD Code Anxiety Arthritis Cataracts Depression type II diabetes Neuropathy High blood pressure Headaches Psychiatric disorder Back,Hip,and Knee pain Reflux Measles Mumps Chicken pox Surgical History Surgery Date(Month/Year) Stent at [facility] 11-23-2015 Hospitalization History Reason Date(Month/Year) [facility] - stent iliac artery & amputati on of toe 12/2015 [facility] Left Carotid artery 07/21/17
--- OUTSIDE RECORDS SUMMARY | 2025-06-22 00:50 | XMS_ITS | Clinical Summary ---
Author Organization [facility] Address [address] [address] Phone Care Team Providers Care University Partnership Rep Name Role Phone Unavailable Primary Care Provider [...] Insurance Medicaid [place] Aetna MCR Adv PPO ([id number])
== END 2025-06-21 17:13 | disposition home or self-care (01) ==
LOC: HO.HMCH 16:16
PROVIDERS: PCP Internal Medicine; Visit Provider Student in an Organized Health Care Education/Training Program
DX: Z51.89 Encounter for other specified aftercare (principal); R15.9 Full incontinence of feces

== ENCOUNTER → 2025-06-21 16:15 | Outpatient (BNVA) | payer MEDICARE, MEDICAID, SELFPAY | PROVIDERS: PCP Internal Medicine; Visit Provider Student in an Organized Health Care Education/Training Program | DX: R15.9 Full incontinence of feces (principal); Z79.2 Long term (current) use of antibiotics; F17.210 Nicotine dependence, cigarettes, uncomplicated | CPT/HCPCS: 99212 ==

== ENCOUNTER 2025-06-26 14:53 | Outpatient (AMB) | payer MEDICARE, MEDICAID, SELFPAY ==
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
[2025-06-26 15:18] VITALS: BP 130/60; PULSE 97; TEMP 36.2; O2SAT 97; BMI 19.9
--- OUTSIDE RECORDS SUMMARY | 2025-06-26 21:27 | XMS_ITS | Clinical Summary ---
Author Organization [facility] Address [address] [facility] [address] [place] [id number] Phone Care Team Providers Care Printing Worker Supervisor Name Role Phone Unavailable Primary Care Provider [...] It is not the complete legal health record.[facility]
--- OUTSIDE RECORDS SUMMARY | 2025-06-26 21:27 | XMS_ITS | Patient Health Record ---
Author Organization [facility] Address [address] [facility] [place] [address] Care Team Providers Care College Associate Name Role Phone Diandra Grady Primary Care Provider Unavailabl e Black, Camryn Unavailable [phone] Reason For Referral No Information Medications Medication [...] Problem Acquired hammer toe of right foot (7717635159526137 ) Other hammer toe(s) (acquired), right foot (M20.41) Active confirmed Problem Acquired hammer toe of left foot (5528616034063456 ) Other hammer toe(s) (acquired), left foot (M20.42) Active confirmed Problem Polyneuropathy due to type 2 diabetes mellitus (877841768) Type 2 diabetes mellitus with diabetic polyneuropathy (E11.42) Active confirmed Encounters Encounter Location Date Provider Diagnosis [facility] [address] 09/06/2024 [facility] [address] [address] 10/27/2024 Camryn Lazaro [facility] [address] [address] 02/14/2025 Camryn Lazaro [facility] [address] 03/01/2025 Camryn Lazaro Plan Of Treatment Pending Test Test Name Order Date [id number] NAIL, 6 OR MORE 10/09/2015 [id number] NAIL, 6 OR MORE 11/01/2015 19346-[id number] NAIL, 6 OR MORE 01/02/2017 21556-[id number] NAIL, 6 OR MORE 08/10/2017 [id number] NAIL, 1-5 12/25/2015 [id number] NAIL, 1-5 01/09/2016 23114- Debride <25 sq cm 10/09/2015 22724-[id number] SKIN/TISSUE 01/09/2016 92133-[id number] SKIN/TISSUE 11/01/2015 27916-[id number] SKIN/TISSUE 11/29/2015 38090-CCQCHOC SKIN/TISSUE 12/25/2015 15617-WBTP SKIN LESIONS, OVER 4 01/03/20 17 04975-FDXV SKIN LESIONS, OVER 4 08/10/19 18 07216-NMJA SKIN LESIONS, 2 TO 4 10/09/19 16 Insurance Providers Payer Name Payer Address Payer Phone Subscriber Number Group Number Insured Name Patient Relationship to Insured Coverage Start Date Coverage End Date A[employer] Medicare Complete [address] [address] [place] [address] [id number] Lena Bill Self - patient is the insured Medical (General) History Medical History History ICD Code Anxiety Arthritis Cataracts Depression type II diabetes Neuropathy High blood pressure Headaches Psychiatric disorder Back,Hip,and Knee pain Reflux Measles Mumps Chicken pox Surgical History Surgery Date(Month/Year) Stent at [facility] 11-23-2015 Hospitalization History Reason Date(Month/Year) [facility] - stent iliac artery & amputati on of toe 12/2015 [facility] Left Carotid artery 07/21/17
--- OUTSIDE RECORDS SUMMARY | 2025-06-26 21:27 | XMS_ITS | Encounter Summary ---
Author Organization [facility] Address [address] [place] [address] Care Team Providers Care Hotel Controller Name Role Phone Diandra Grady MD Primary Care Provider [phone] Reason for Visit * Reason Onset Date Comments Appointment 06/05/2025 Encounter Details Date Type Department Care Team ([facility] st Contact Info) Description 06/05/2025 Telephone Gastroenterology - [place] [address] [facility] [address] [facility] [address] [place] [address] Nurys Martinez, PAWAN [address] [facility] [address] [place] [address] Social History Tobacco Use Types Packs/Day Years [...] 06/05/2025 10:51 AM EST Received records from [facility] for incontinence of feces. Referral scanned into [...] PM EDT Office Visit Gastroenterology - [address] [place] [address] Nurys Martinez, PAWAN [address] [facility] [address] [place] [address] documented as of this encounter Visit Diagnoses Not on filedocumented in this encounter Care Teams Hotel Controller Relationship Specialty Start Date End Date Miguel A, MD Diandra [address] [place] [address] [address] [facility] [place] [address] PCP - General Internal Medicine 07/15/21 documented as of this encounter
--- OUTSIDE RECORDS SUMMARY | 2025-06-26 21:27 | XMS_ITS | Clinical Summary ---
Author Organization [facility] [address] [facility] Address [address] [place] [address] Phone Care Team Providers Care [employer] Team Member Name Role Phone Diandra Grady MD Primary Care Provider [phone] Allergies No known active allergies Medications Trulicity [...] Care Team Description 06/05/2025 Telephone Gastroenterology - [place] [address] [facility] [address] [place] [id number] Nurys Martinez NP from Last 3 Months Surgical History Surgery Date Site/Laterality Comments TOE AMPUTATION CAROTID ENDARTERECTOMY COLONOSCOPY 07/01/2016 nl, tics, hemorrhoids ESOPHAGOGASTRODUODENOSCOPY 07/01/2016 nl CHOLECYSTECTOMY Medical History Medical History Date Comments GERD (gastroesophageal reflux disease) Irritable bowel syndrome with diarrhea HTN (hypertension) Diabetes ([facility] V24, [facility] V28) Hyperlipidemia Chronic back pain PVD (peripheral vascular disease) ([facility] V24) Family History Medical History Relation Name [...] Office Visit Gastroenterology - [address] [facility] [address] [place] [phone] Nurys Martinez, PAWAN [address] [facility] [address] [place] [address] Health Maintenance Due Date Last Done Comments [...] mmol/L LAB CHEMISTRY METHOD 08/25/2024 4:32 PM [facility] Potassium 4.4 3.5 - 5.5 mmol/L LAB CHEMISTRY METHOD 08/25/2024 4:32 PM [facility] Chloride 103 96 - 110 mmol/L LAB CHEMISTRY METHOD 08/25/2024 4:32 PM [facility] CO2 26 21 - 32 mmol/L LAB CHEMISTRY METHOD 08/25/2024 4:32 PM [facility] Anion Gap 8 3 - 11 LAB CHEMISTRY METHOD 08/25/2024 4:32 PM [facility] Glucose 185(H) 70 - 100 mg/dL LAB CHEMISTRY METHOD 08/25/2024 4:32 PM [facility] BUN 20 5 - 25 mg/dL LAB CHEMISTRY METHOD 08/25/2024 4:32 PM [facility] Creatinine 1.42(H) 0.50 - 1.10 mg/dL LAB CHEMISTRY METHOD 08/25/2024 4:32 PM [facility] eGFR 40(L) >=60 mL/min/1. 73m2 LAB CHEMISTRY METHOD 08/25/2024 4:32 PM [facility] Comment:Calculation based on the Chronic Kidney Disease Epidemiology Collaboration (CKD-EPI) equation refit without adjustment for race. BUN/Creatinine Ratio 14.1 LAB CHEMISTRY METHOD 08/25/2024 4:32 PM [facility] Calcium 9.5 8.5 - 10.5 mg/dL LAB CHEMISTRY METHOD 08/25/2024 4:32 PM [facility] AST (SGOT) 20 10 - 42 unit/L LAB CHEMISTRY METHOD 08/25/2024 4:32 PM [facility] ALT (SGPT) 15 10 - 60 unit/L LAB CHEMISTRY METHOD 08/25/2024 4:32 PM [facility] Alkaline Phosphatase 76 42 - 121 unit/L LAB CHEMISTRY METHOD 08/25/2024 4:32 PM [facility] Total Protein 6.8 6.0 - 8.0 g/dL LAB CHEMISTRY METHOD 08/25/2024 4:32 PM [facility] Albumin 3.5 3.2 - 5.0 g/dL LAB CHEMISTRY METHOD 08/25/2024 4:32 PM [facility] Total Bilirubin 0.3 0.0 - 1.4 mg/dL LAB CHEMISTRY METHOD 08/25/2024 4:32 PM [facility] Blood Venous blood specimen / Unknown Venipuncture / Unknown 08/25/2024 3:19 PM EST 08/25/2024 3:58 PM EST us Eryn Lauren [employer] LAB BLOOD ORDERABLES Final Re sult [facility] [address] [place] [address], * COLONOSCOPY (07/01/2016 9:36 AM EST) Anatomical Region Laterality Modality Endoscopy Historical Provider GI~PROCEDURE ORDERABLES F inal Result from Last 3 Months or Most Recently Relevant to Health Maintenance Insurance [employer] MEDICARE ADVANTAGE MEDICAID - [place] Care Teams [employer] Team Member Relationship Specialty Start Date End Date Diandra Grady MD [address] [place] [address] [address] [facility] [place] [address] PCP - General Internal Medicine 07/15/21
== END 2025-06-26 16:09 | disposition home or self-care (01) ==
LOC: HO.HMCH 14:54
PROVIDERS: PCP Internal Medicine; Visit Provider Internal Medicine
DX: F11.90 Opioid use, unspecified, uncomplicated (principal); Z13.9 Encounter for screening, unspecified

== ENCOUNTER → 2025-06-26 14:53 | Outpatient (BNVA) | payer MEDICARE, MEDICAID, SELFPAY | PROVIDERS: PCP Internal Medicine; Visit Provider Internal Medicine | DX: F11.90 Opioid use, unspecified, uncomplicated (principal); Z13.9 Encounter for screening, unspecified | CPT/HCPCS: 81003; 99212 ==

== ENCOUNTER → 2025-06-28 14:00 | Outpatient (BNV) | payer MEDICARE, MEDICAID, SELFPAY | PROVIDERS: PCP Internal Medicine; Visit Provider Radiology Diagnostic Radiology | DX: E28.39 Other primary ovarian failure (principal) | CPT/HCPCS: 77080 ==

== ENCOUNTER 2025-06-28 14:06 | Outpatient (REF) | payer MEDICARE, MEDICAID, SELFPAY ==
--- NOTE | ~2025-06-28 | MM_ITS ---
EXAMINATION: DXA BONE DENSITY AXIAL HISTORY: M81.0 - Age-related osteoporosis without current pathological fracture TECHNIQUE: Tradeshift Dual energy absorptiometry (DEXA) of the lumbar spine, total left hip, and femoral neck was performed. COMPARISON: There are no prior studies for comparison. FINDINGS: The bone mineral density of the lumbar spine is 1.081 g/cm2, corresponding to a T-score of -0.8, and a Z-score of 1.2. This is indicative of normal bone mineral density. The bone mineral density of the left total hip is 0.653 g/cm2, corresponding to a T-score of -2.8, and a Z-score of -1.0. This is indicative of osteoporosis. The bone mineral density of the left femoral neck is 0.748 g/cm2, corresponding to a T-score of -2.1, and a Z-score of -0.1. This is indicative of osteopenia. FRACTURE RISK: The FRAX index suggests a risk of major osteoporotic fracture of 12.3%, and of hip fracture 4.6%. MM/XR DEXA axial skeleton IMPRESSION: Based on bone mineral density, and according to World Health Organization (WHO) criteria, the diagnosis is consistent with osteoporosis. Statistically, 68% of repeat scans fall within 1 SD (+/- 0.010 g/cm2 for AP spine L1-L4) and 1 SD (+/- 0.012 g/cm2 for femur total) FRAX is a trademark of the [employer] [place] for Metabolic Bone Disease, a World Health Organization (WHO) Collaborating Center. Electronically signed by: George Almaguer MD 06/28/2025 03:16 PM [facility]
--- OUTSIDE RECORDS SUMMARY | 2025-06-28 18:53 | XMS_ITS | Clinical Summary ---
Author Organization [facility] Address [address] [facility] [address] [place] [address] Phone Care Team Providers Care Proofsheet Corrector Name Role Phone Unavailable Primary Care Provider [...] It is not the complete legal health record.[facility]
--- OUTSIDE RECORDS SUMMARY | 2025-06-28 18:53 | XMS_ITS | Clinical Summary ---
Author Organization [facility] [address] [facility] Address [address] [place] [address] Phone Care Team Providers Care Turn Out Worker Name Role Phone Diandra Grady MD Primary Care Provider [phone] Allergies No known active allergies Medications Trulicity [...] Care Team Description 06/05/2025 Telephone Gastroenterology - [place] [address] [place] [id number] Nurys Martinez NP from Last 3 Months Surgical History Surgery Date Site/Laterality Comments TOE AMPUTATION CAROTID ENDARTERECTOMY COLONOSCOPY 07/01/2016 nl, tics, hemorrhoids ESOPHAGOGASTRODUODENOSCOPY 07/01/2016 nl CHOLECYSTECTOMY Medical History Medical History Date Comments GERD (gastroesophageal reflux disease) Irritable bowel syndrome with diarrhea HTN (hypertension) Diabetes ([facility] V24, [facility] V28) Hyperlipidemia Chronic back pain PVD (peripheral vascular disease) [place] [place] Family History Medical History Relation Name [...] Office Visit Gastroenterology - [address] [place] [phone] Nurys Martinez, PAWAN [address] [facility] [address] [place] [address] Health Maintenance Due Date Last Done Comments [...] [facility] Comment:Calculation based on the Chronic [...] 08/25/2024 3:58 PM EST us Eryn Lauren BEHAVIOUR SUPPORT TEACHER LAB BLOOD ORDERABLES Final Re sult [facility] [address] [place] [address], * COLONOSCOPY (07/01/2016 9:36 AM EST) Anatomical Region Laterality Modality Endoscopy Historical Provider GI~PROCEDURE ORDERABLES F inal Result from Last 3 Months or Most Recently Relevant to Health Maintenance Insurance A[employer] MEDICARE ADVANTAGE MEDICAID - [place] Care Teams Turn Out Worker Relationship Specialty Start Date End Date Diandra Grady MD [address] [place] [address] [address] [facility] [place] [address] PCP - General Internal Medicine 07/15/21
--- OUTSIDE RECORDS SUMMARY | 2025-06-28 18:53 | XMS_ITS | Patient Health Record ---
Author Organization [facility] Address [address] [facility] [place] [address] Care Team Providers Care Tubular Products Fabricator Name Role Phone Diandra Grady Primary Care Provider Unavailabl e Black, Camryn Unavailable [phone] Reason For Referral No Information Medications Medication [...] Problem Acquired hammer toe of right foot (5742659430412855 ) Other hammer toe(s) (acquired), right foot (M20.41) Active confirmed Problem Acquired hammer toe of left foot (0910402056677342 ) Other hammer toe(s) (acquired), left foot (M20.42) Active confirmed Problem Polyneuropathy due to type 2 diabetes mellitus (253382752) Type 2 diabetes mellitus with diabetic polyneuropathy (E11.42) Active confirmed Encounters Encounter Location Date Provider Diagnosis [facility] [address] 09/06/2024 [facility] [address] [address] 10/27/2024 Camryn Lazaro [facility] [address] [address] 02/14/2025 Camryn Lazaro [facility] [address] 03/01/2025 Camryn Lazaro Plan Of Treatment Pending Test Test Name Order Date [id number] NAIL, 6 OR MORE 10/09/2015 [id number] NAIL, 6 OR MORE 11/01/2015 [id number] NAIL, 6 OR MORE 01/02/2017 [id number] NAIL, 6 OR MORE 08/10/2017 [id number] NAIL, 1-5 12/25/2015 [id number] NAIL, 1-5 01/09/2016 03935- Debride <25 sq cm 10/09/2015 60861-PRBOKIF SKIN/TISSUE 01/09/2016 68681-[id number] SKIN/TISSUE 11/01/2015 40678-[id number] SKIN/TISSUE 11/29/2015 05577-[id number] SKIN/TISSUE 12/25/2015 48198-KFVJ SKIN LESIONS, OVER 4 01/03/20 17 81822-CJZM SKIN LESIONS, OVER 4 08/10/19 18 05860-JFKP SKIN LESIONS, 2 TO 4 10/09/19 16 Insurance Providers Payer Name Payer Address Payer Phone Subscriber Number Group Number Insured Name Patient Relationship to Insured Coverage Start Date Coverage End Date AARP Medicare Complete [address] [address] [place] [address] [id number] Lena Bill Self - patient is the insured Medical (General) History Medical History History ICD Code Anxiety Arthritis Cataracts Depression type II diabetes Neuropathy High blood pressure Headaches Psychiatric disorder Back,Hip,and Knee pain Reflux Measles Mumps Chicken pox Surgical History Surgery Date(Month/Year) Stent at [facility] 11-23-2015 Hospitalization History Reason Date(Month/Year) [facility] - stent iliac artery & amputati on of toe 12/2015 [facility] Left Carotid artery 07/21/17
--- OUTSIDE RECORDS SUMMARY | 2025-06-28 18:53 | XMS_ITS | Encounter Summary ---
Author Organization [facility] [place] [address] Care Team Providers Care Linux Security Administrator Name Role Phone Diandra Grady MD Primary Care Provider [phone] Reason for Visit * Reason Onset Date Comments Appointment 06/05/2025 Encounter Details Date Type Department Care Team ([facility] st Contact Info) Description 06/05/2025 Telephone Gastroenterology - [place] [address] [facility] [address] [facility] [address] [place] [address] Nurys Martinez, PAWAN [address] [facility] [address] [place] [address] Social History Tobacco Use Types Packs/Day Years [...] 06/05/2025 10:51 AM EST [place] [facility] [place]. Referral scanned into [...] PM EDT Office Visit Gastroenterology - [address] [place] [address] Nurys Martinez, PAWAN [address] [facility] [address] [place] [address] documented as of this encounter Visit Diagnoses Not on filedocumented in this encounter Care Teams Linux Security Administrator Relationship Specialty Start Date End Date Miguel A, MD Diandra [address] [place] [address] [address] [facility] [place] [address] PCP - General Internal Medicine 07/15/21 documented as of this encounter
== END 2025-06-28 14:07 | disposition home or self-care (01) ==
LOC: HO.MAMMO 14:06
PROVIDERS: PCP Internal Medicine; Visit Provider Internal Medicine
DX: Z12.31 Encounter for screening mammogram for malignant neoplasm of breast (principal); M81.0 Age-related osteoporosis without current pathological fracture; S32.020S Wedge compression fracture of second lumbar vertebra, sequela
CPT/HCPCS: 77063; 77067; 77080

== ENCOUNTER 2025-06-28 15:12 | Emergency (ER) | payer MEDICARE, MEDICAID, SELFPAY ==
[2025-06-28 15:21] VITALS: BP 97/56; PULSE 98; RESP 16; TEMP 36.6; O2SAT 97; BMI 20.2
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
--- OUTSIDE RECORDS SUMMARY | 2025-06-28 21:08 | XMS_ITS | Clinical Summary ---
Author Organization [facility] Address [address] [address] Phone Care Team Providers Care Quilt Maker Name Role Phone Unavailable Primary Care [...] Insurance Medicaid [place] Aetna MCR Adv PPO ([id number])
== END 2025-06-28 19:12 | disposition left against medical advice (07) ==
PROVIDERS: Emergency Provider Emergency Medicine; PCP Internal Medicine
DX: R30.0 Dysuria (principal); I25.10 Atherosclerotic heart disease of native coronary artery without angina pectoris; M81.0 Age-related osteoporosis without current pathological fracture; R10.23 Pelvic and perineal pain bilateral; E11.9 Type 2 diabetes mellitus without complications; F17.210 Nicotine dependence, cigarettes, uncomplicated; Z79.899 Other long term (current) drug therapy; Z79.4 Long term (current) use of insulin; Z13.820 Encounter for screening for osteoporosis; Z12.31 Encounter for screening mammogram for malignant neoplasm of breast
CPT/HCPCS: 77063; 77067; 77080; 99281; 99282; 99284

== ENCOUNTER 2025-07-04 11:44 | Emergency (ER) | payer MEDICARE, MEDICAID, SELFPAY ==
--- NOTE | ~2025-07-04 | CT_ITS ---
CLINICAL HISTORY: altered menal status CT head without contrast Comparison: None Findings: No intracranial mass, midline shift, hydrocephalus, or acute hemorrhage. No CT evidence of acute ischemia. Visualized paranasal sinuses and mastoid air cells normal. Orbits unremarkable. No skull fracture Impression: 1. No acute intracranial abnormalities. This document has been electronically signed by: Bautista Lloyd MD on 07/04/2025 20:17:00
--- NOTE | ~2025-07-04 | CT_ITS ---
CLINICAL HISTORY: abdominal pain Exam: Contrast-enhanced CT abdomen and pelvis with multiplanar reformats. Comparison: None. Findings: CT abdomen: Lung bases reveal minimal bibasilar atelectasis. Liver is free of focal lesions and significant intrahepatic ductal dilatation. Slight prominence of the common bile duct at 9 mm diameter is compatible with sequela of prior cholecystectomy. No radiodense filling defects identified within the biliary tree. Gallbladder is absent. Spleen appears unremarkable. Pancreas appears unremarkable. Adrenal glands appear unremarkable. Left kidney reveals an upper pole cyst measuring up to 3 cm diameter (13; 72, 5 Hounsfield units). Right kidney reveals subcentimeter hypodensity, too small to characterize although likely small cyst (13; 176). Kidneys otherwise unremarkable. No free intraperitoneal fluid or retroperitoneal masses or adenopathy. Abdominal aorta is within normal limits caliber with moderate calcific athero sclerosis. Bowel loops reveal a small hiatal hernia. No abnormal wall thickening or distention. The appendix is unremarkable. Colonic diverticulosis is present, without CT evidence of diverticulitis. CT pelvis: Uterus and adnexal structures appear unremarkable. Urinary bladder is fairly distended measuring up to 13.4 cm craniocaudad dimension. No gross filling defects within urinary bladder. No pelvic masses, fluid or adenopathy. Osseous structures reveal no destructive osseous lesions. There are remote appearing anterior compression deformities at L1 and L2, with no definable fracture lines or paravertebral stranding. Impression: 1. No acute abnormality or CT explanation for reported history of abdominal pain. This document has been electronically signed by: Bautista Lloyd MD on 07/04/2025 20:19:54
[2025-07-04 12:02] VITALS: BP 135/63; PULSE 85; RESP 20; TEMP 36.1; O2SAT 99; BMI 21.3
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
--- NOTE | 2025-07-04 13:34 | ECG_ITS ---
Test Reason : near syncope Blood Pressure : */* mmHG Vent. Rate : 86 BPM Atrial Rate : 86 BPM P-R Int : 166 ms QRS Dur : 112 ms QT Int : 366 ms P-R-T Axes : 53 14 38 degrees QTcB Int : 437 ms Normal sinus rhythm Minimal voltage criteria for LVH, may be normal variant ( Ciro product ) ST elevation, consider early repolarization, pericarditis, or injury Nonspecific T wave abnormality Abnormal ECG No previous ECGs available Referred By: Tee Leal Electronically Signed By: LESLIE HOWELL MD
[2025-07-04 14:06] LABS: MANUAL DIFF FLAG NO
[2025-07-04 14:08] LABS: Hematocrit 43.9 % (37.0-47.0); Hemoglobin 14.1 g/dl (12.0-16.0); Imm Gran Abs Auto 0.09 X10*3/uL (0.00-0.03); Imm Gran Pct Auto 0.6 % (0.0-0.4); Lymphocytes Absolute Auto 1.1 X10*3/uL (1.2-4.9); Mean Corpuscular HGB Conc 32.1 g/dl (31.0-35.0); Mean Corpuscular Hemoglobin 28.8 pg (27.0-33.0); Mean Corpuscular Volume 89.8 fL (80.0-98.0); NRBC Abs Auto 0.000 X10*3/uL (0.0-0.012); NRBC Pct Auto 0.0 /100WBC (0.0-0.2); Platelet Count 441 X10*3/uL (160-400); Red Blood Count 4.89 X10*6/uL (4.20-5.50); White Blood Count 14.6 X10*3/uL (4.8-10.8)
[2025-07-04 14:25] LABS: Alanine Aminotransferase 13 U/L (0-31); Albumin Level 4.4 g/dL (3.5-5.0); Alkaline Phosphatase 75 U/L (39-117); Anion Gap 13 (12-20); Aspartate Amino Transferase 14 U/L (5-31); Blood Urea Nitrogen 24 mg/dL (9-16); Calcium 10.4 mg/dL (8.4-10.2); Carbon Dioxide 28 mmol/L (22-29); Chloride 101 mmol/L (96-108); Creatinine Clr Calc Pharmacy 38.7; Estimated Glomerular Filt Rate 43; Potassium 4.4 mmol/L (3.3-5.1); Sodium 138 mmol/L (135-145); Total Protein 7.6 g/dL (6.5-8.0)
[2025-07-04 14:32] LABS: Troponin-I High Sensitivity 5.3 ng/L (<3.5-17.0)
[2025-07-04 16:04] VITALS: BP 161/81; PULSE 84; RESP 20; TEMP 36.4; O2SAT 100
--- NOTE | 2025-07-04 16:22 | ECG_ITS ---
Test Reason : PAIN Blood Pressure : */* mmHG Vent. Rate : 61 BPM Atrial Rate : 61 BPM P-R Int : 184 ms QRS Dur : 104 ms QT Int : 410 ms P-R-T Axes : 69 36 40 degrees QTcB Int : 412 ms Normal sinus rhythm with sinus arrhythmia Normal ECG When compared with ECG of 04-Jul-2025 13:47, No significant change was found Referred By: Ludwin Diaz Electronically Signed By: LESLIE HOWELL MD
--- OUTSIDE RECORDS SUMMARY | 2025-07-04 16:55 | XMS_ITS | Clinical Summary ---
Author Organization [facility] [address] [facility] Address [address] [place] [address] Phone Care Team Providers Care Marketing Professional Name Role Phone Diandra Grady MD Primary Care Provider [phone] Allergies No known active allergies Medications Trulicity [...] Telephone Gastroenterology - [place] [address] [facility] [address] [place] [phone] Nurys Martinez NP from Last 3 Months Surgical History Surgery Date Site/Laterality Comments TOE AMPUTATION CAROTID ENDARTERECTOMY COLONOSCOPY 07/01/2016 nl, tics, hemorrhoids ESOPHAGOGASTRODUODENOSCOPY 07/01/2016 nl CHOLECYSTECTOMY Medical History Medical History Date Comments GERD (gastroesophageal reflux disease) Irritable bowel syndrome with diarrhea HTN (hypertension) Diabetes ([facility] V24, [facility] V28) Hyperlipidemia Chronic back pain PVD (peripheral vascular disease) ([facility] V24) Family History Medical History [...] Office Visit Gastroenterology - [address] [facility] [address] [place] [phone] Nurys Martinez, PAWAN [address] [facility] [address] [place] [address] Health Maintenance Due Date Last Done Comments Breast Cancer Screening 1955 Drug Screen 1955 Non-Opioid Controlled Substance Agreement 1955 Diabetes: Annual Foot Exam 1963 Diabetes: [...] mmol/L LAB CHEMISTRY METHOD 08/25/2024 4:32 PM [facility] Potassium 4.4 3.5 - 5.5 mmol/L LAB CHEMISTRY METHOD 08/25/2024 4:32 PM [facility] Chloride 103 96 - 110 mmol/L LAB CHEMISTRY METHOD 08/25/2024 4:32 PM [facility] CO2 26 21 - 32 mmol/L LAB CHEMISTRY METHOD 08/25/2024 4:32 PM [facility] Anion Gap 8 3 - 11 LAB CHEMISTRY METHOD 08/25/2024 4:32 PM [facility] Glucose 185(H) 70 - 100 mg/dL LAB CHEMISTRY METHOD 08/25/2024 4:32 PM [facility] BUN 20 5 - 25 mg/dL LAB CHEMISTRY METHOD 08/25/2024 4:32 PM [facility] Creatinine 1.42(H) 0.50 - 1.10 mg/dL LAB CHEMISTRY METHOD 08/25/2024 4:32 PM [facility] eGFR 40(L) >=60 mL/min/1. 73m2 LAB CHEMISTRY METHOD 08/25/2024 4:32 PM [facility] Comment:Calculation based on the Chronic Kidney Disease Epidemiology Collaboration (CKD-EPI) equation refit without adjustment for race. BUN/Creatinine Ratio 14.1 LAB CHEMISTRY METHOD 08/25/2024 4:32 PM [facility] Calcium 9.5 8.5 - 10.5 mg/dL LAB CHEMISTRY METHOD 08/25/2024 4:32 PM [facility] AST (SGOT) 20 10 - 42 unit/L LAB CHEMISTRY METHOD 08/25/2024 4:32 PM [facility] ALT (SGPT) 15 10 - 60 unit/L LAB CHEMISTRY METHOD 08/25/2024 4:32 PM [facility] Alkaline Phosphatase 76 42 - 121 unit/L LAB CHEMISTRY METHOD 08/25/2024 4:32 PM [facility] Total Protein 6.8 6.0 - 8.0 g/dL LAB CHEMISTRY METHOD 08/25/2024 4:32 PM [facility] Albumin 3.5 3.2 - 5.0 g/dL LAB CHEMISTRY METHOD 08/25/2024 4:32 PM [facility] Total Bilirubin 0.3 0.0 - 1.4 mg/dL LAB CHEMISTRY METHOD 08/25/2024 4:32 PM [facility] Blood Venous blood specimen / Unknown Venipuncture / Unknown 08/25/2024 3:19 PM EST 08/25/2024 3:58 PM EST us Eryn Lauren NP LAB BLOOD ORDERABLES Final Re sult [facility] [address] [place] [address], * COLONOSCOPY (07/01/2016 9:36 AM EST) Anatomical Region Laterality Modality Endoscopy us Historical Provider MD PICHARDO~PROCEDURE ORDERABLES F inal Result from Last 3 Months or Most Recently Relevant to Health Maintenance Insurance A[employer]NA MEDICARE ADVANTAGE MEDICAID - [place] Care Teams Marketing Professional Relationship Specialty Start Date End Date Diandra Grady MD [address] [place] [address] [address] [facility] [place] [address] PCP - General Internal Medicine 07/15/21
--- OUTSIDE RECORDS SUMMARY | 2025-07-04 16:55 | XMS_ITS | Patient Health Record ---
Author Organization [facility] Address [address] [facility] [place] [address] Care Team Providers Care Auto Body Estimator Name Role Phone Diandra Grady Primary Care Provider Unavailabl e Black, Camryn Unavailable [phone] Reason For Referral No Information Medications Medication [...] Problem Acquired hammer toe of right foot (9828092610583889 ) Other hammer toe(s) (acquired), right foot (M20.41) Active confirmed Problem Acquired hammer toe of left foot (6288436143592565 ) Other hammer toe(s) (acquired), left foot (M20.42) Active confirmed Problem Polyneuropathy due to type 2 diabetes mellitus (745662682) Type 2 diabetes mellitus with diabetic polyneuropathy (E11.42) Active confirmed Encounters Encounter Location Date Provider Diagnosis [facility] [address] 09/06/2024 Camrynluciano Lazaro [facility] [address] [address] 10/27/2024 Camryn Lazaro [facility] [address] [address] 02/14/2025 Camryn Lazaro [facility] [address] 03/01/2025 Camryn Lazaro Plan Of Treatment Pending Test Test Name Order Date [id number] NAIL, 6 OR MORE 10/09/2015 [id number] NAIL, 6 OR MORE 11/01/2015 [id number] NAIL, 6 OR MORE 01/02/2017 [id number] NAIL, 6 OR MORE 08/10/2017 [id number] NAIL, 1-5 12/25/2015 [id number] NAIL, 1-5 01/09/2016 87441- Debride <25 sq cm 10/09/2015 [id number] SKIN/TISSUE 01/09/2016 [id number] SKIN/TISSUE 11/01/2015 [id number] SKIN/TISSUE 11/29/2015 [id number]-[id number] SKIN/TISSUE 12/25/2015 13784-[id number] SKIN LESIONS, OVER 4 01/03/20 17 [id number] SKIN LESIONS, OVER 4 08/10/19 18 51784-[id number] SKIN LESIONS, 2 TO 4 10/09/19 16 Insurance Providers Payer Name Payer Address Payer Phone Subscriber Number Group Number Insured Name Patient Relationship to Insured Coverage Start Date Coverage End Date AARP Medicare Complete [address] [address] [place] [address] [id number] Lena Bill Self - patient is the insured Medical (General) History Medical History History ICD Code Anxiety Arthritis Cataracts Depression type II diabetes Neuropathy High blood pressure Headaches Psychiatric disorder Back,Hip,and Knee pain Reflux Measles Mumps Chicken pox Surgical History Surgery Date(Month/Year) Stent at [facility] 11-23-2015 Hospitalization History Reason Date(Month/Year) [facility] - stent iliac artery & amputati on of toe 12/2015 [facility] Left Carotid artery 07/21/17
--- OUTSIDE RECORDS SUMMARY | 2025-07-04 16:55 | XMS_ITS | Encounter Summary ---
Author Organization [facility] [place] [address] Care Team Providers Care Projection Welding Machine Operator Name Role Phone Diandra Grady MD Primary Care Provider Reason for Visit * Reason Onset Date Comments Appointment 06/05/2025 Encounter Details Date Type Department Care Team ([facility] st Contact Info) Description 06/05/2025 Telephone Gastroenterology - [place] [address] [facility] 175 [facility] [address] [place] [address] Nurys Martinez, PAWAN [address] [facility] [address] [place] [address] Social History Tobacco Use Types Packs/Day Years [...] 10:51 AM EST Received records from [facility] for incontinence of feces. Referral scanned into [...] PM EDT Office Visit Gastroenterology - [address] [place] [address] Nurys Martinez, PAWAN [address] [facility] [address] [place] [address] documented as of this encounter Visit Diagnoses Not on filedocumented in this encounter Care Teams Projection Welding Machine Operator Relationship Specialty Start Date End Date Miguel A, MD Diandra [address] [place] [address] [address] [facility] [place] [address] PCP - General Internal Medicine 07/15/21 documented as of this encounter
--- OUTSIDE RECORDS SUMMARY | 2025-07-04 16:55 | XMS_ITS | Clinical Summary ---
Author Organization [facility] Address [address] [address] Phone Care Team Providers Care Shipping Manager Name Role Phone Unavailable Primary Care Provider [...] Insurance Medicaid [place] Aetna MCR Adv PPO ([id number])
--- OUTSIDE RECORDS SUMMARY | 2025-07-04 16:55 | XMS_ITS | Clinical Summary ---
Author Organization [facility] Address [address] [facility] [address] [place] [address] Phone Care Team Providers Care Tree Puller Name Role Phone Unavailable Primary Care Provider [...]
--- NOTE | 2025-07-04 16:56 | PC.NURSE ---
iv inserted, labs drawn, funeral director/embalmer/owner applied- nsr on monitor, pt medicated for 10/10 back pain, ivf running per order, rr equal/non labored, call camejo within reach, plan of care ongoing
[2025-07-04 17:02] LABS: Lipase 26 U/L (8-78)
[2025-07-04 17:11] LABS: Troponin-I High Sensitivity 6.0 ng/L (<3.5-17.0)
--- NOTE | 2025-07-04 17:44 | PC.NURSE ---
pt went to CT scan was unable to tolerate having ct scan performed r/t c/o nausea, pt is being medicated to help with her nausea so she will then be able to participate in her care to have the ct scan performed.
--- NOTE | 2025-07-04 17:50 | PC.NURSE ---
pt medicated for nausea, additional labs drawn. 1:1 sitter placed due to patients intermittent confusion and impulsiveness. additionally alarm placed on pts bed/fall precautions placed.
[2025-07-04 17:58] LABS: VBG HCO3 26 mmol/L (22-26); VBG O2 % Saturation 33.0 %
[2025-07-04 17:58] LABS: Venous Blood Gas Refer to POC result
[2025-07-04 18:03] LABS: Ammonia 19 umol/L (13-55)
[2025-07-04 18:45] VITALS: BP 144/64; PULSE 84; RESP 12; O2SAT 95
[2025-07-04] MEDS: Ketamine HCl/NS 50 MG/5 ML SYRINGE IVPUSH (19:26)
--- NOTE | 2025-07-04 19:29 | PC.NURSE ---
Assumed pt care @ 1900. Pt resting quietly, sitter at bedside Pt medicated per sep Pt now with radiology Plan of care ongoing.
[2025-07-04] MEDS: iohexoL 350 MG/ML 100 ML INFUS..BTL IV (19:35)
[2025-07-04 20:14] VITALS: BP 142/73; PULSE 77; RESP 12; TEMP 36.4; O2SAT 92
[2025-07-04 20:47] VITALS: PULSE 78; RESP 14
[2025-07-04 21:11] LABS: Cannabinoid Screen Urine Not Detected (Not Detect)
[2025-07-04 22:22] VITALS: BP 118/57; PULSE 52; RESP 12; TEMP 36.2; O2SAT 95
--- NOTE | 2025-07-04 22:35 | PC.NURSE ---
Pts HR in 40's provider notified and aware Plan of care ongoing.
[2025-07-05 01:12] VITALS: BP 132/50; PULSE 58; RESP 12; TEMP 36.8; O2SAT 98
--- NOTE | 2025-07-05 01:20 | PC.NURSE ---
@this time this RN spoke w/ Yeison pt boyfriend stating the pt is D/C and in need of a safe ride home, Yeison stated he will be arriving to the ED within 45min to an hour
--- NOTE | 2025-07-05 02:05 | PC.NURSE ---
indwelling urinary catheter removed d/t pt D/C, approximately 1000mL of clear yellow urine within drainage bag
[2025-07-05 02:14] VITALS: BP 132/50; PULSE 58; RESP 12; TEMP 36.8; O2SAT 98
== END 2025-07-05 02:16 | disposition home or self-care (01) ==
PROVIDERS: Physician Assistant; Emergency Provider Emergency Medicine; PCP Internal Medicine
DX: R41.82 Altered mental status, unspecified (principal); M54.9 Dorsalgia, unspecified; F11.10 Opioid abuse, uncomplicated; E11.21 Type 2 diabetes mellitus with diabetic nephropathy; J44.9 Chronic obstructive pulmonary disease, unspecified; I10 Essential (primary) hypertension; Z86.79 Personal history of other diseases of the circulatory system; Z79.899 Other long term (current) drug therapy
CPT/HCPCS: 36415; 70450; 74177; 80053; 80307; 82140; 82803; 83690; 83880; 84484; 85025; 93005; 96361; 96374; 96375; 99285; J1200; J1630; J2270; Q9967

== ENCOUNTER → 2025-07-04 13:34 | Outpatient (BNV) | payer MEDICARE, MEDICAID, SELFPAY | PROVIDERS: PCP Internal Medicine; Visit Provider Internal Medicine Cardiovascular Disease | DX: R94.31 Abnormal electrocardiogram [ECG] [EKG] (principal); R55 Syncope and collapse | CPT/HCPCS: 93010 ==

== ENCOUNTER → 2025-07-04 16:22 | Outpatient (BNV) | payer MEDICARE, MEDICAID, SELFPAY | PROVIDERS: Emergency Provider Emergency Medicine; PCP Internal Medicine; Visit Provider Radiology Diagnostic Radiology | DX: R10.9 Unspecified abdominal pain (principal); R41.82 Altered mental status, unspecified | CPT/HCPCS: 70450; 74177 ==

== ENCOUNTER 2025-07-08 15:01 | Emergency (ER) | payer MEDICARE, MEDICAID, SELFPAY ==
--- OUTSIDE RECORDS SUMMARY | 2025-07-07 17:20 | XMS_ITS | Continuity of Care Document ---
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 Progress note * Julissa Michaud RN: PERFORM, SIGN, VERIFY Event Display: Progress Note Hospital Authored Date: Patient: CASANDRA MCCLAIN Age: 70 years Sex: Female : 1955 Associated Diagnoses: None Author: Julissa Michaud RN Findings Problem Related to Alteration in Neurological : Alteration in Neurological Function/new 07/07/2025 8:00 EST Alteration in Neuro status Related to Acute Stroke (CVA) Goals & Outcomes, Neurological Lab studies/diagnostic tests within pt specific limits, Pt is safe with transfers & activities, Pt will be hemodynamically stable, Pt will be Neurologically stable, Pt will become pain free with appropriate intervention, Pt will maintain intact skin integrity,Pt will resume/maintain adequate cardiac output, Pt will state importance of adhering to medicationregime, Pt/caregiver will state understanding of rehab plan, Pt/caregiver will state strategies to reduce risk factors, Pt/caregiver will state understanding dietary modifications, Pt/caregiver will state understanding of disease process, Pt/caregiver will state understanding of plan/goals of care Interventions, Neurological Assess/monitor neurologic status, Assess/monitor VS per unit standards & prn, Call/Report variances in assessments to provider, Collaborate w/ provider to implement appropriate guidelines, Collaborate with Nutrition, Collaborate with provider re: medication regime, Document & Monitor O2 Sats; Administer O2 as ordered, Emergency airway equipment at bedside, Ident jayce psychosocial issues related to diagnosis/illness, If no bowel movement in 3 days activate bowelregime, [place] alternate means of communication, Keep patient's head & body in good alignment, Maintain patient safety if unsteady gait, Monitor for headaches, nausea, vomiting, Monitor speechfluency, aphasia, word finding difficulty, Physical assessment per unit standards, Provide emotional support to Pt/caregiver, Teach & encourage deep breath & cough exercises, Teach pt/caregiver on plan of care, treatment, s/s & meds, Teach pt/caregiver on use of pain scale BH Goals/Interventions, Neurological Yes Neurological, Problem Start 07/06/2025 21:36 Reviewed plan with, Neurological Patient Patient Progression, Neurological Pt progressing according to plan . Nursing Data Neurological Data. : Neurological Data. 07/07/2025 8:00 EST Tongue Disposition Midline Neurological Symptoms Weakness or loss of muscle strength Level of Consciousness Full Consciousness Orientated to person, place, time Person, Place, Time, Event Facial Symmetry Intact Characteristics of Speech Clear and normal Swallowing Difficulty None Pupil description, left Regular Pupil description, right Regular Pupil reaction, left Brisk Pupil reaction, right Brisk Pupil Size, Left 3 mm Pupil Size, Right 3 mm Strength LUE 5-Active movement against gravity & full resistance Strength RUE 5-Active movement against gravity & full resistance Strength LLE 5-Active movement against gravity & full resistance Strength RLE 5-Active movement against gravity & full resistance Tone LUE Normal Tone RUE Normal Tone LLE Normal Tone RLE Normal Sensation LUE Intact Sensation RUE Intact Sensation LLE Intact Sensation RLE Intact Movement LUE Spontaneous Movement RUE Spontaneous Movement LLE Spontaneous Movement RLE Spontaneous Response Eye Opening Spontaneously Motor Response-Adult Obeys commands Verbal Response-Adult Oriented and converses Sergo Coma Score 15 Neuro WNL except Eyes and Movements Conjugate gaze: Move in same direction at same speed Memory Intact Swallow - Neuro Normal . Evaluation Patient A&Ox4, follows simple and complex commands, speech is clear, face symmetrical, tongue midline. +perrl. Patient denies numbness, tingling, nausea, headache, dizziness, vision changes, and pain. Lung sounds clear on room air. Bsx4, last bowel movement 07/07. Patient ambulating with assistto bathroom to void. [place] 11/14. Bed locked in low position with bed alarm set, call camejo within reach, and patient safety maintained. Patient left unit around 1700 via chairvan to go home. Piv d/c'd tip intact, no signs or symptoms of infection. Discharge instructions went over with patient, patient verbalized understanding of instructions with no questions at this time. . Electronically Signed on 07/07/25 06:34 PM Julissa Michaud RN * Colleen Vega RN: PERFORM, SIGN, VERIFY Event Display: Progress Note Hospital Authored Date: [id number] Patient: CASANDRA MCCLAIN Age: 70 years Sex: Female : 1955 Associated Diagnoses: None Author: Colleen Vega RN Findings Narrative/Incidental A&Ox3, VSS, no c/o pain at the time of assessment, RA, hypoactive BS, moves all extremities. Ptoriented to the unit, skin care provided, bed alam is on, call camejo is at reach.. Electronically Signed on 07/06/25 10:32 PM Colleen Vega RN * Lisset Mac RN: PERFORM, SIGN, VERIFY Event Display: Progress Note Hospital Authored Date: [id number] Patient: CASANDRA MCCLAIN Age: 70 years Sex: Female : 1955 Associated Diagnoses: None Author: Lisset Mac RN Findings Nursing Data Neurological Data. : Neurological Data. 07/06/2025 15:35 EST Tongue Disposition Midline Neurological Symptoms None Level of Consciousness Full Consciousness Orientated to person, place, time Person, Place, Time, Event Hallucinations None Facial Symmetry Intact Pupil description, left Regular Pupil description, right Regular Pupil reaction, left Brisk Pupil reaction, right Brisk Strength LUE 5-Active movement against gravity & full resistance Strength RUE 5-Active movement against gravity & full resistance Strength LLE 5-Active movement against gravity & full resistance Strength RLE 5-Active movement against gravity & full resistance Tone LUE Normal Tone RUE Normal Tone LLE Normal Tone RLE Normal Sensation LUE Intact Sensation RUE Intact Sensation LLE Intact Sensation RLE Intact Movement LUE Spontaneous, To command Movement RUE Spontaneous, To command Movement LLE Spontaneous, To command Movement RLE Spontaneous, To command Gait Unable to assess Response Eye Opening Spontaneously Motor Response-Adult Obeys commands Verbal Response-Adult Oriented and converses Sergo Coma Score 15 Neuro WNL except Eyes and Movements Conjugate gaze: Move in same direction at same speed Memory Intact . Evaluation Pt AOx4, speech is clear, follows simple commands, PERRL 3, denies STOLL, dizziness, vision changes. [place] with 5/5 strength, denies NT, NV. Pt lungs are clear, denies feeling SOB on RA. Pt abdomen soft, non tender last BM 07/06. Pt voiding clear yellow, urine and is incontinent with prima in place. BS for 214 at 1700. Pt restless but is redirectable with vc to stay in bed. Pt skin is dry and flaky but intact. 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 Pt updated onPOC and verbalized understanding. Bed in low position, call camejo within reach, hourly rounding and safety maintained.. Electronically Signed on 07/06/25 05:45 PM Lisset Mac RN Note * Julissa Michaud RN: PERFORM Event Display: Discharge/Transfer Note Hospital Authored Date: [id number] Nursing Discharge Note Entered On: 07/07/2025 18:54 EST Performed On: 07/07/2025 17:20 EST by Julissa Michaud RN Nursing Discharge Note 2 Discharge Level of Care at Discharge : Home/Shelter/Foster Care Discharge Time : 07/07/2025 17:20 EST Tower Hand Utilized : No Patient Left Unit Via : Chair Van Patient Accompanied Off Unit with : Ambulance/Chair Van Personnel Handover Given to Transport Personnel : Yes DC Instructions Provided & Signed by Pt : Yes Patient Understands D/C Instructions : Yes Patient Instructions Discharge Signed : Yes Did Pt have Specialty Bed or Wound Vac : No Julissa Michaud RN - 07/07/2025 18:53 EST Electronically Signed on 07/07/25 06:53 PM Julissa Michaud RN * Chacho DOMINGUEZ, David: PERFORM Event Display: Discharge/Transfer Note Hospital Authored Date: Patient: ??CASANDRA MCCLAIN ? Age:??70 Years?Sex:??Female?:??1955?LOC:? Patient Information Discharge Location: D5A Primary Care Physician: Diandra Grady MD Admit Date/Time: 07/05/2025 15:44 Discharge Date:??07/07/2025 15:15 Discharge Disposition Discharge Disposition: Home: No Services Discharge Diagnosis Altered mental status ([id number]) AMS (altered mental status) (R41.82) Lethargy (R53.83) Chronic obstructive pulmonary disease (COPD) (J44.9) Diabetes mellitus (E11.9) GERD (gastroesophageal reflux disease) (K21.9) Hypertension (I10) Coronary artery disease (I25.10) Chronic pain (G89.29) _ Discharge Medications Acetaminophen (acetaminophen 325 mg oral tablet)??650 Milligram By Mouth Every 4 hours as needed Temperature Greater than 100.5 Pain , Mild Albuterol (Albuterol (Eqv-ProAir HFA) 90 mcg/inh inhalation aerosol)??2 inhalation 180 Microgram Inhalation Every 4 hours as needed as needed for shortness of breath or wheezing Albuterol/Ipratropium (albuterol-ipratropium 3 mg-0.5 mg/3 ml inhalation solution)??3 Milliliter BAND Nebulizer 4 times a day for 14 Days Alprazolam (ALPRAZolam 2 mg oral tablet)??1 tab(s) 2 Milligram By Mouth Daily at bedtime as needed for anxiety Aspirin (aspirin 81 mg oral delayed release tablet)??1 tab(s) 81 Milligram By Mouth Daily dulaglutide (Trulicity Pen)??1.5 Milligram Subcutaneous Injection Every 7 days empagliflozin (Jardiance)??10 Milligram By Mouth Daily in AM fluticason/umeclidinium/vilant (Trelegy Ellipta 200 mcg-62.5 mcg-25 mcg/inh inhalation powder)??1 inhalation Inhalation Daily at the same time every day Fluticasone (Arnuity Ellipta 200 mcg inhalation powder)??1 inhalation 200 Microgram Inhalation Every 24 hours Lisinopril (lisinopril 20 mg oral tablet)??TAKE 1 TABLET BY MOUTH DAILY Metformin??1,000 Milligram By Mouth Daily Omeprazole (omeprazole 20 mg oral enteric coated capsule)??1 capsule 20 Milligram By Mouth Daily ? Quality Measures Tobacco Use Treatment:? Discharge Medications New Acetaminophen (acetaminophen 325 mg oral tablet)650 Milligram Oral every 4 hours as needed Pain , Mild. Temperature Greater than 100.5. Unchanged Albuterol (Albuterol (Eqv-ProAir HFA) 90 mcg/inh inhalation aerosol)2 inhalation Inhalation every 4hours as needed as needed for shortness of breath or wheezing. Refills: 0. Albuterol/Ipratropium (albuterol-ipratropium 3 mg-0.5 mg/3 ml inhalation solution)3 Milliliter BANDNebulizer 4 times a day for 14 Days. Refills: 0. Alprazolam (ALPRAZolam 2 mg oral tablet)1 tab(s) Oral Daily at Bedtime as needed for anxiety. Aspirin (aspirin 81 mg oral delayed release tablet)1 tab(s) Oral Daily. Refills: 0. dulaglutide (Trulicity Pen)1.5 Milligram Subcutaneous Injection every 7 days. empagliflozin (Jardiance)10 Milligram Oral Daily in the morning. fluticason/umeclidinium/vilant (Trelegy Ellipta 200 mcg-62.5 mcg-25 mcg/inh inhalation powder)1 inhalation Inhalation Daily. at the same time every day. Fluticasone (Arnuity Ellipta 200 mcg inhalation powder)1 inhalation Inhalation every 24 hours. Lisinopril (lisinopril 20 mg oral tablet)TAKE 1 TABLET BY MOUTH DAILY. Metformin1,000 Milligram Oral Daily. Omeprazole (omeprazole 20 mg oral enteric coated capsule)1 capsule Oral Daily. Discontinued MethylPREDNISolone (Medrol 4 mg oral tablet)Please take it as directed on package labeling. Refills: 0. Multivitamin With Minerals (Therapeutic Multiple Vitamins with Minerals oral tablet, chewable)By Mouth Daily. Refills: 0. Oxycodone (oxyCODONE 15 mg oral tablet)TAKE 1 TABLET BY MOUTH EVERY 6 HOURS NEEDED FOR PAIN.. Allergies Allergies ?(Active and Proposed Allergies Only) NKA? (Severity: Unknown severity, Onset: Unknown) ? Future Appointments Thursday2025 10:10 AM EST ?? Type: Return With: Apoorva Murray MD Where: [facility] [address] [place] [address] Drive [address] [place] [address]- Status: Pending Hospital Course ??70 Y/O F with PMH of HTN, HLD, DM, CKD, CAD, PAD, COPD, GERD hold to the ED for evaluation of altered mental status. ??History was somewhat limited as she was??sleepy at the time of admission. She was recently admitted to the hospital with AMS and was treated for UTI. She also had mildly elevatedstable troponin in 50s-60s for which she underwent echocardiogram that showed preserved EF, no WMA,Mild to moderate Mitral stenosis. She was discharged home on Bactrim. ?? In the EE, she was afebrile, HR 60s-80s, BP 100s-150s/50s-80s mmHg, on RA-2L of O2.??EKG: NSR - LAFB.??Labs: CBC (WBC 11.6), BMP (CR 1.01 mg/dl), LFT (WNL), LA 1.6.?? Influenza/RSV/COVID-19 PCR's arenegative.??UA: WBC 3, negative LE, nitrate.??CT head: No acute intracranial pathology. ??Patient admitted for observation. ?? Lethargy (R53.83):??- AMS (altered mental status) (R41.82): Recently admitted to hospital with AMS/lethargy attributed UTI/opioid.?? Now presents back with lethargy/somnolence.?? CT Head with no acute intracranial abnormalities. UA negative.?? Extended respiratory pathogen panel negative CXR??no acute abnormalities - compression fractures and multiple old healed right ribs fractures.?? Ammonia level within normal limits Urine drug screen positive for benzodiazepine, opiate and fentanyl Blood culture sent on admission has been negative for 24 hours Patient was initially n.p.o. but then she passed a bedside swallow and started on a diet Plan and cardiology within normal limits Patient appears somewhat volume depleted and so she was given IV fluids Her mentation is significantly improved There was concern of??neck left at home and so social work consulted. ??As per social work she currently receiving services from access Services and she is willing to??upgraded services. ? Chronic obstructive pulmonary disease (COPD) (J44.9):??Symbicort.?? Diabetes mellitus (E11.9):??insulin sliding scale and hypoglycemia protocol.?? GERD (gastroesophageal reflux disease) (K21.9):??PPI Chronic pain (G89.29):??hold oxycodone.? Coronary artery disease (I25.10):??- Hypertension (I10): - continue aspirin.?? Patient's lisinopril was held on admission. ??Repeat creatinine this morning improved and so it wasrestarted at the time of discharge ?? Patient seen by physical therapy??and they recommend home with services. ??Patient refused servicesand preferred to go home. ??She lives with her son and she tells me that he has been extremely helpful??and so discharge plans made. Objective Assessment and Plan ? Vital Signs?? Temperature: 98 DegF (07/07/25 11:00:00) Temperature Route: Oral (07/07/25 11:00:00) Pulse Rate: 75 bpm (07/07/25 11:00:00) Respiratory Rate: 19 br/min (07/07/25 11:00:00) Systolic Blood Pressure:??152 mm Hg??High (07/07/25 11:00:00) Diastolic Blood Pressure: 80 mm Hg (07/07/25 11:00:00) Blood pressure sites: Arm, right (07/07/25 04:00:00) Mean Arterial Pressure: 103 mm Hg (07/07/25 08:29:00) Pulse Pressure: 72 mm Hg (07/07/25 11:00:00) Oxygen Saturation: 99 % (07/07/25 11:00:00) Mode of Delivery (Oxygen): Room air (07/07/25 11:00:00) FiO2: 21 % (07/06/25 18:15:00) Early Warning Score: 0 (07/07/25 13:29:36) ? . Physical Exam Constitutional: Alert, in no distress. Mental Status: Oriented to person, place and time. Head: Normocephalic. Eyes: Pupils are equal, round and reactive to light. Ear, Nose and Throat: Oropharynx clear, mucous membranes moist.?? Neck: Supple, Full range of motion. Respiratory: Clear to auscultation. No wheezing, rales or rhonchi. Cardiovascular: S1 S2 regular. No murmurs, rubs or gallops. Gastrointestinal: Abdomen soft, non-tender, non-distended. Normal bowel sounds.?? Genitourinary:??No suprapubic tenderness Neurologic: Cranial nerves II-XII grossly intact. No focal neurological deficits. Psychiatric: Normal mood and affect Pending Results Add On Lab Order ordered on 07/06/2025 Follow-Up Appointments Added Follow Up ?Time Frame ?Comments Diandra Grady MD?1 week: call to discuss follow up visit Home Health Face to Face ^HomeHealthFTF Results Discharge Labs BACTERIOLOGY Blood Culture Results Preliminary report ()?? 07/06/2025 07:26 Blood Culture Specimen Source BLOOD ()?? 07/06/2025 07:26 Blood Culture Isolate 1 Comment ()?? 07/06/2025 07:26 Blood Cult 2 Results Preliminary report ()?? 07/06/2025 07:40 Blood Culture 2 Specimen Source BLOOD ()?? 07/06/2025 07:40 Blood Culture 2 Isolate 1 Comment ()?? 07/06/2025 07:40 ?? BLOOD COUNT & DIFF WBC 8.2 k/mm3 ()?? 07/07/2025 07:45 RBC 5.25 m/mm3 ()?? 07/07/2025 07:45 Hgb 14.8 Gm/dL ()?? 07/07/2025 07:45 Hct 45.1 % ()?? 07/07/2025 07:45 MCV 85.9 femtoliters ()?? 07/07/2025 07:45 MCH 28.2 pg ()?? 07/07/2025 07:45 MCHC 32.8 Gm/dL (Low)?? 07/07/2025 07:45 Platelet Count 411 k/mm3 ()?? 07/07/2025 07:45 RDW-SD 41.5 femtoliters ()?? 07/07/2025 07:45 MPV 9.3 femtoliters (Low)?? 07/07/2025 07:45 Nucleated RBC (Automated) 0.0 #/100 WBC'S ()?? 07/07/2025 07:45 Abs. NRBC 0.0 k/mm3 ()?? 07/07/2025 07:45 Abs. Neut 4.6 k/mm3 ()?? 07/07/2025 07:45 Abs. Lymph 3.0 k/mm3 ()?? 07/07/2025 07:45 Abs. [place] 0.4 k/mm3 ()?? 07/07/2025 07:45 Abs. Eo 0.1 k/mm3 ()?? 07/07/2025 07:45 Abs. Baso 0.0 k/mm3 ()?? 07/07/2025 07:45 Neut % 55.9 % ()?? 07/07/2025 07:45 Lymph % 36.8 % ()?? 07/07/2025 07:45 [place] % 5.4 % ()?? 07/07/2025 07:45 Eos % 0.9 % ()?? 07/07/2025 07:45 Baso % 0.4 % ()?? 07/07/2025 07:45 Imm Gran 0.6 % ()?? 07/07/2025 07:45 Abs. Imm Gran 0.1 k/mm3 ()?? 07/07/2025 07:45 ?? BLOOD GAS pH 7.48 (High)?? 07/06/2025 18:15 pCO2 31 mm Hg (Low)?? 07/06/2025 18:15 pO2 70 mm Hg ()?? 07/06/2025 18:15 Bicarbonate, Estimated 23 mmol/L ()?? 07/06/2025 18:15 Specimen Type - Blood Gas ARTERIAL ()?? 07/06/2025 18:15 Percent O2 (FIO2) 21 ()?? 07/06/2025 18:15 ?? CARDIAC High Sensitivity Troponin (HSTnT) 35 ng/L (High)?? 07/06/2025 07:26 ? CHEM GENERAL Sodium 137 mmol/L ()?? 07/07/2025 07:45 Potassium 3.6 mmol/L ()?? 07/07/2025 07:45 Chloride 104 mmol/L ()?? 07/07/2025 07:45 Bicarbonate Level 20 mmol/L (Low)?? 07/07/2025 07:45 Anion Gap 13 mmol/L ()?? 07/07/2025 07:45 Glucose Level 138 mg/dL (High)?? 07/07/2025 07:45 Glucose, POC 252 mg/dL (High)?? 07/07/2025 11:42 BUN 16 mg/dL ()?? 07/07/2025 07:45 Creatinine-Blood 0.81 mg/dL ()?? 07/07/2025 07:45 Estimated GFR Creatinine 77 ML/MIN/1.73 M2 ()?? 07/07/2025 07:45 Calcium 9.0 mg/dL ()?? 07/07/2025 07:45 Protein, Total 6.5 Gm/dL ()?? 07/06/2025 07:26 Albumin 3.6 Gm/dL ()?? 07/06/2025 07:26 AG Ratio 1.3 ()?? 07/05/2025 17:23 Alkaline Phosphatase 64 units/L ()?? 07/06/2025 07:26 Lipase, Serum/Plasma 32 units/L ()?? 07/05/2025 17:23 AST (SGOT) 20 units/L ()?? 07/06/2025 07:26 ALT (SGPT) 13 units/L ()?? 07/06/2025 07:26 Bilirubin, Total 0.4 mg/dL ()?? 07/06/2025 07:26 Bilirubin, Direct 0.1 mg/dL ()?? 07/06/2025 07:26 Bilirubin, Indirect 0.3 mg/dL ()?? 07/06/2025 07:26 Lactate 1.6 mmol/L ()?? 07/05/2025 17:23 ?? ENDOCRINE/TUMOR MARKER Cortisol Level 8.1 ??g/dL ()?? 07/06/2025 07:26 ? MISC. CHEMISTRY Ammonia, Venous 19 ??mole/L ()?? 07/06/2025 07:26 ? TOXICOLOGY/TDM Barbiturate Screen, Urine NONE DETECTED ()?? 07/06/2025 13:45 Cannabinoid Screen, Urine NONE DETECTED ()?? 07/06/2025 13:45 Cocaine Metabolite Screen, Urine NONE DETECTED ()?? 07/06/2025 13:45 Methadone Screen, Urine NONE DETECTED ()?? 07/06/2025 13:45 Benzodiazepine Screen, Urine POSITIVE (Abnormal)?? 07/06/2025 13:45 Amphetamine Screen, Urine NONE DETECTED ()?? 07/06/2025 13:45 Opiate Screen, Urine POSITIVE (Abnormal)?? 07/06/2025 13:45 Oxycodone Screen, Urine POSITIVE (Abnormal)?? 07/06/2025 13:45 Buprenorphine, Urine Random NONE DETECTED ()?? 07/06/2025 13:45 Fentanyl Screen, Urine Result POSITIVE (Abnormal)?? 07/06/2025 13:45 ?? UA/URINALYSIS Appear/Color, Urine LIGHT YELLOW ()?? 07/06/2025 18:30 Specific [place], Urine 1.012 ()?? 07/06/2025 18:30 pH, Urine 7.5 ()?? 07/06/2025 18:30 Albumin, Urine 2+ (Abnormal)?? 07/06/2025 18:30 Glucose, Urine 4+ (Abnormal)?? 07/06/2025 18:30 Ketones, Urine 1+ (Abnormal)?? 07/06/2025 18:30 Bilirubin, Urine NEGATIVE ()?? 07/06/2025 18:30 Hemoglobin, Urine TRACE (Abnormal)?? 07/06/2025 18:30 Nitrite, Urine NEGATIVE ()?? 07/06/2025 18:30 Leukocyte, Urine NEGATIVE ()?? 07/06/2025 18:30 Urobilinogen NORMAL mg/dL ()?? 07/06/2025 18:30 WBC's, Urine 3 /HPF ()?? 07/06/2025 18:30 RBC's, Urine 7 /HPF (High)?? 07/06/2025 18:30 Bacteria SLIGHT HPF (Abnormal)?? 07/06/2025 18:30 Squamous Epith <1 /HPF () 07/05/2025 22:26 Hyaline Cast 2 LPF ()?? 07/05/2025 22:26 Mucus SLIGHT /LPF ()?? 07/05/2025 22:26 Hold Urine Culture Testing available 48 hours from time of collection. ()?? 07/06/2025 18:30 Hold Urine Testing Available 24 hours from Time of Collection ()?? 07/06/2025 18:30 ? VIROLOGY Influenza A PCR NEGATIVE ()?? 07/05/2025 18:27 Influenza B PCR NEGATIVE ()?? 07/05/2025 18:27 RSV PCR NEGATIVE ()?? 07/05/2025 18:27 Adenovirus by PCR NEGATIVE ()?? 07/05/2025 18:27 Coronavirus 229E by PCR (not COVID-19) NEGATIVE ()?? 07/05/2025 18:27 Coronavirus HKU1 by PCR (not COVID-19) NEGATIVE ()?? 07/05/2025 18:27 Coronavirus NL63 by PCR (not COVID-19) NEGATIVE ()?? 07/05/2025 18:27 Coronavirus OC43 by PCR (not COVID-19) NEGATIVE ()?? 07/05/2025 18:27 Human Metapneumovirus by PCR NEGATIVE ()?? 07/05/2025 18:27 Rhinovirus/Enterovirus by PCR NEGATIVE ()?? 07/05/2025 18:27 Influenza A by PCR NEGATIVE ()?? 07/05/2025 18:27 Influenza B by PCR NEGATIVE ()?? 07/05/2025 18:27 Parainfluenza 1 by PCR NEGATIVE ()?? 07/05/2025 18:27 Parainfluenza 2 by PCR NEGATIVE ()?? 07/05/2025 18:27 Parainfluenza 3 by PCR NEGATIVE ()?? 07/05/2025 18:27 Parainfluenza 4 by PCR NEGATIVE ()?? 07/05/2025 18:27 RSV by PCR NEGATIVE ()?? 07/05/2025 18:27 Bordetella Pertussis by PCR NEGATIVE ()?? 07/05/2025 18:27 Chlamydophila Pneumoniae by PCR NEGATIVE ()?? 07/05/2025 18:27 Mycoplasma Pneumoniae by PCR NEGATIVE ()?? 07/05/2025 18:27 COVID-19 PCR Specimen Source NASAL ()?? 07/05/2025 18:27 COVID-19 PCR Result NEGATIVE ()?? 07/05/2025 18:27 COVID-19 (SARS-CoV-2) by PCR NEGATIVE ()?? 07/05/2025 18:27 Bordetella Parapertussis by PCR NEGATIVE ()?? 07/05/2025 18:27 ? 25??minutes spent on discharge Electronically Signed on 07/07/25 03:21 PM Chacho DOMNIGUEZ, David * Luisito THAKKAR, Suzette: PERFORM Event Display: Patient Education/Instruction Authored Date: [id number] Inpatient Adult Discharge Instructions. [address] [address] Name: CASANDRA MCCLAIN : 1955?? Visit: 07/05/2025 15:44?? Current Date: 07/07/2025 15:49 ?? Account: [id number]?? Inpatient Adult Discharge Instructions We would like to thank you for allowing us to assist you with your healthcare needs. The following includes patient education materials and information regarding your injury/illness. Our entire staffstrives to provide an excellent experience for our patients and their families. PLEASE ENSURE YOU FOLLOW-UP PER THE INSTRUCTIONS BELOW! ?? YOUR OPINION IS IMPORTANT TO US! Please complete the survey you may receive by mail or email. Your feedback will be used to make improvements to the healthcare experiences of our patients and their families. Surveys are administered by [employer] ?? If further treatment with your primary care physician or another doctor is recommended, it is important for you to keep the appointment. Call your primary care physician or return to the Emergency Department immediately if your condition worsens, fails to improve, or new symptoms develop. If you need to find a doctor, you can call [facility] for a referral at [phone] or toll free at [phone]) or log in to [email or web address].. ?? [facility], in keeping with [place] DPH guidance, no longer requires face masks for staff, patientsor visitors in most situations. Similiar to time spent indoors at other locations, there is the chance that you were exposed to repiratory viruses during your time with us (such as flu or COVID-19). If you develop symptoms concerning for a viral respiratory infection, please seek testing (and treatment if indicated) from your medical provider or home test kit. ?? You can view and manage your care through the patient portal or by using a health care mohan of your choosing. [employer] is a website that allows you to securely view your medical information including your hospital discharge summary, office visit summaries, medications and follow-up visits. You can also request appointments, renew medications, and request access to your medical information using a health care mohan of your choosing, or just ask a question. You are entitled to know the individuals who participated in your treatment. This information is available within your medical record and will be provided upon your request. You can enroll at [email or web address] or register d uring your next office visit. You have been discharged from , Patient Care Unit: D5A??. If you have any questions regarding these instructions, including results of studies pending, afteryou leave, please call us and we will be happy to assist you 02/02. Your Care Team Attending Physician David Flor MD?? Consulting Providers David Flor MD?? Discharging Providers David Flor MD Reason for Your Visit Pt coming from home, family called. Was at [place] yesterday for med refill. At 0300 began acting confused, very weak, lethargic. FAST ED 0.?? Your Diagnosis Altered mental status AMS (altered mental status) Chronic obstructive pulmonary disease (COPD) Chronic pain Coronary artery disease Diabetes mellitus GERD (gastroesophageal reflux disease) Hypertension Lethargy Tests Performed Below is a partial list of the tests performed during your hospitalization. You may have had other tests and procedures not included in this list. Please discuss all test results with your provider. ABG Ammonia Venous Amphetamine Urine Screen Barbiturate Urine Screen Basic Metabolic Panel Benzodiazepine Urine Screen Blood Culture Blood Culture #2 Blood Culture 2 Results Blood Culture Result BUN Buprenorphine Urine Calcium Level Cannabinoid Urine Screen CBC CBC w/ Differential Cocaine Urine Screen Comprehensive Metabolic Panel Cortisol Level COVID-19, RSV, and Flu A/B, Rapid PCR Creatinine Electrolytes Fentanyl Screen, Urine Glucose Level GLUCOSE POC HOLD URINE CULTURE HOLD URINE, HEMATOLOGY Lactate Level LFT's Lipase Methadone Urine Opiate Screen Urine Oxycodone Screen Urine RESP PATH PANEL W/COVID-19 Troponin T, High Sensitivity UA with hold for urine culture Urinalysis w/hold for Urine Culture CT Head/Brain W/O Contrast CXR Add On Lab Order?? Ammonia Venous?? Amphetamine Urine Screen?? BUN?? Barbiturate Urine Screen?? Basic Metabolic Panel?? Benzodiazepine Urine Screen?? Blood Culture?? Blood Culture #2?? Blood Culture 2 Results?? Blood Culture Result?? Blood Gas Arterial (ABG)?? Buprenorphine Urine?? CBC?? CBC w/ Differential?? COVID-19, RSV, and Flu A/B, Rapid PCR?? CT Head/Brain W/O Contrast?? Calcium Level?? Cannabinoid Urine Screen?? Cocaine Urine Screen?? Comprehensive Metabolic Panel?? Cortisol Level?? Creatinine?? Electrolytes?? Fentanyl Screen, Urine?? Glucose Level?? Glucose POC?? Hepatic Function Panel (LFT's)?? High??Sensitivity??Troponin T (Troponin T, High Sensitivity)?? Hold Urine (HOLD URINE, HEMATOLOGY)?? Hold Urine Culture?? Lactic Acid Level (Lactate Level)?? Lipase?? Methadone Urine?? Opiate Screen Urine?? Oxycodone Screen Urine?? Respiratory Pathogen PCR with COVID-19 (RESP PATH PANEL W/COVID-19)?? Urinalysis w/hold for Urine Culture (UA with hold for urine culture)?? Chest 2 Views Frontal and Lat (CXR)?? Primary Care Provider Diandra Grady MD? Advance Directive Health Care Proxy on File Yes - Health Care Proxy Discharge Vitals Temperature: 97.8 DegF Pulse Rate: 76 bpm Respiratory Rate: 18 br/min Systolic Blood Pressure:??142 mm Hg??High Diastolic Blood Pressure: 80 mm Hg Oxygen Saturation: 99 % Studies Pending All studies ordered during this hospital stay have been completed unless listed below. Please discuss all pending results with your provider listed above in these instructions. ?? Add On Lab Order?? What to do next Instructions From Your Doctor ?? Orders? 07/07/25 15:21:00 EST?? Prescriptions??, ??07/07/25 15:21:00 EST?? Scheduled Follow-Up Appointments Thursday2025 10:10 AM EST ?? Type: Return With: Apoorva Murray MD Where: [facility] General Surgery [address] [place] [address] Drive [address] [place] [address]- Status: Pending You Need to Schedule the Following Appointments Follow Up with??Diandra Grady MD When:Within 1 week: call to discuss follow up visit Where:[address] [place] [phone] Business (1) Discharge Medications CASANDRA MCCLAIN :1955 Visit Date:07/05/2025 Medications: Please continue your medications until treatment is completed or stopped by your provider. Medications not listed below should be discontinued. Discuss any questions related to medications with your provider. What How Much When Instructions Next Dose New Acetaminophen (acetaminophen 325 mg oral tablet) 650 Milligram Oral Every 4 hours as needed for Pain , Mild Special Instructions: Temperature Greater than 100.5 Ordering Physician: Chacho DOMINGUEZ, David ?? as needed Unchanged Albuterol (Albuterol (Eqv-ProAir HFA) 90 mcg/ inh inhalation aerosol) 2 inhalation Inhalation Every 4 hours as needed for as needed for shortness of breath or wheezing Ordering Physician: Mateus Pete MD as needed Unchanged Albuterol/ Ipratropium (albuterol-ipratropium 3 mg-0.5 mg/ 3 ml inhalation solution) 3 Milliliter BAND Nebulizer 4 times a day Duration: 14 Days Ordering Physician: Susan Guan MD resume home schedule Unchanged Alprazolam (ALPRAZolam 2 mg oral tablet) 1 tab(s) Oral Daily at Bedtime as needed for for anxiety at bedtime as needed Unchanged Aspirin (aspirin 81 mg oral delayed release tablet) 1 tab(s) Oral Daily Ordering Physician: Juan M Noel DO in morning 07/08/2025 Unchanged dulaglutide (Trulicity Pen) 1.5 Milligram Subcutaneous Injection Every 7 days resume home schedule Unchanged empagliflozin (Jardiance) 10 Milligram Oral Daily in the morning in morning resume home schedule Unchanged fluticason/ umeclidinium/ vilant (Trelegy Ellipta 200 mcg-62.5 mcg-25 mcg/ inh inhalationpowder) 1 inhalation Inhalation Daily Special Instructions: at the same time every day ?? resume home schedule Unchanged Fluticasone (Arnuity Ellipta 200 mcg inhalation powder) 1 inhalation Inhalation Every 24 hours resume home schedule Unchanged Lisinopril (lisinopril 20 mg oral tablet) Special Instructions: TAKE 1 TABLET BY MOUTH DAILY ?? resume home schedule Unchanged Metformin 1,000 Milligram Oral Daily resume home schedule Unchanged Omeprazole (omeprazole 20 mg oral enteric coated capsule) 1 capsule Oral Daily resume home schedule ?? What How Much When Comments Stop Taking MethylPREDNISolone (Medrol 4 mg oral tablet) See instructions Special Instructions: Please take it as directed on package labeling Ordering Physician: David Flor MD ?? Stop Taking Multivitamin With Minerals (Therapeutic Multiple Vitamins with Minerals oral tablet, chewable) See instructions Special Instructions: By Mouth Daily Ordering Physician: David Flor MD ?? Stop Taking Oxycodone (oxyCODONE 15 mg oral tablet) Special Instructions: TAKE 1 TABLET BY MOUTH EVERY 6 HOURS NEEDED FOR PAIN. ?? Prescription Given During Visit No new medications prescribed at time of discharge.?? Laboratory Results Below is a partial list of the most recent Laboratory test results done prior to this discharge. You may have had other tests and procedures not included in this list. Please discuss all test resultswith your provider. ABG (07/06/2025) ???pH - 7.48???pCO2 - 31 mm Hg???pO2 - 70 mm Hg???Bicarbonate, Estimated - 23 mmol/L???Specimen Type - Blood Gas - ARTERIAL???Percent O2 (FIO2) - 21 Ammonia Venous (07/06/2025) ???Ammonia, Venous - 19 ??mole/L Amphetamine Urine Screen (07/06/2025) ???Amphetamine Screen, Urine - NONE DETECTED Barbiturate Urine Screen (07/06/2025) ???Barbiturate Screen, Urine - NONE DETECTED Basic Metabolic Panel (07/06/2025) ???Sodium - 138 mmol/L???Potassium - 3.8 mmol/L???Chloride - 102 mmol/L???Bicarbonate Level - 27 mmol/L???Anion Gap - 9 mmol/L???Glucose Level - 135 mg/dL???BUN - 16 mg/dL???Creatinine-Blood - 1.01 mg/dL???Estimated GFR Creatinine - 59 ML/MIN/1.73 M2???Calcium - 9.5 mg/dL Benzodiazepine Urine Screen (07/06/2025) ???Benzodiazepine Screen, Urine - POSITIVE Blood Culture (07/06/2025) ???Blood Culture Results - Preliminary report???Blood Culture Specimen Source - BLOOD Blood Culture #2 (07/06/2025) ???Blood Cult 2 Results - Preliminary report???Blood Culture 2 Specimen Source - BLOOD Blood Culture 2 Results (07/06/2025) ???Blood Culture 2 Isolate 1 - Comment Blood Culture Result (07/06/2025) ???Blood Culture Isolate 1 - Comment BUN (07/07/2025) ???BUN - 16 mg/dL Buprenorphine Urine (07/06/2025) ???Buprenorphine, Urine Random - NONE DETECTED Calcium Level (07/07/2025) ???Calcium - 9.0 mg/dL Cannabinoid Urine Screen (07/06/2025) ???Cannabinoid Screen, Urine - NONE DETECTED CBC (07/06/2025) ???WBC - 8.9 k/mm3???RBC - 5.04 m/mm3???Hgb - 14.3 Gm/dL???Hct - 45.1 %???MCV - 89.5 femtoliters???MCH - 28.4 pg???MCHC - 31.7 Gm/dL???Platelet Count - 430 k/mm3???RDW-SD - 43.3 femtoliters???MPV - 8.8 femtoliters???Nucleated RBC (Automated) - 0.0 #/100 WBC'S???Abs. NRBC - 0.0 k/mm3 CBC w/ Differential (07/07/2025) ???WBC - 8.2 k/mm3???RBC - 5.25 m/mm3???Hgb - 14.8 Gm/dL???Hct - 45.1 %???MCV - 85.9 femtoliters???MCH - 28.2 pg???MCHC - 32.8 Gm/dL???Platelet Count - 411 k/mm3???RDW-SD - 41.5 femtoliters???MPV - 9.3 femtoliters???Nucleated RBC (Automated) - 0.0 #/100 WBC'S???Abs. NRBC - 0.0 k/mm3???Abs. Neut - 4.6 k/mm3???Abs. Lymph - 3.0 k/mm3???Abs. [place] - 0.4 k/mm3???Abs. Eo - 0.1 k/mm3???Abs. Baso - 0.0 k/mm3???Neut % - 55.9 %???Lymph % - 36.8 %???[place] % - 5.4 %???Eos % - 0.9 %???Baso % - 0.4 %???Imm Gran - 0.6 %???Abs. Imm Gran - 0.1 k/mm3 Cocaine Urine Screen (07/06/2025) ???Cocaine Metabolite Screen, Urine - NONE DETECTED Comprehensive Metabolic Panel (07/05/2025) ???Sodium - 140 mmol/L???Potassium - 4.3 mmol/L???Chloride - 102 mmol/L???Bicarbonate Level - 26 mmol/L???Anion Gap - 12 mmol/L???Glucose Level - 150 mg/dL???BUN - 17 mg/dL???Creatinine-Blood - 1.01 mg/dL???Estimated GFR Creatinine - 59 ML/MIN/1.73 M2???Calcium - 10.4 mg/dL???Protein, Total - 7.4 Gm /dL???Albumin - 4.2 Gm/dL???AG Ratio - 1.3???Alkaline Phosphatase - 76 units/L???AST (SGOT) - 18 units/L???ALT (SGPT) - 13 units/L???Bilirubin, Total - 0.3 mg/dL Cortisol Level (07/06/2025) ???Cortisol Level - 8.1 ??g/dL COVID-19, RSV, and Flu A/B, Rapid PCR (07/05/2025) ???Influenza A PCR - NEGATIVE???Influenza B PCR - NEGATIVE???RSV PCR - NEGATIVE???COVID-19 PCR Specimen Source - NASAL???COVID-19 PCR Result - NEGATIVE Creatinine (07/07/2025) ???Creatinine-Blood - 0.81 mg/dL???Estimated GFR Creatinine - 77 ML/MIN/1.73 M2 Electrolytes (07/07/2025) ???Sodium - 137 mmol/L???Potassium - 3.6 mmol/L???Chloride - 104 mmol/L???Bicarbonate Level - 20 mmol/L???Anion Gap - 13 mmol/L Fentanyl Screen, Urine (07/06/2025) ???Fentanyl Screen, Urine Result - POSITIVE Glucose Level (07/07/2025) ???Glucose Level - 138 mg/dL GLUCOSE POC (07/07/2025) ???Glucose, POC - 252 mg/dL HOLD URINE CULTURE (07/06/2025) ???Hold Urine Culture - Testing available 48 hours from time of collection. HOLD URINE, HEMATOLOGY (07/06/2025) ???Hold Urine - Testing Available 24 hours from Time of Collection Lactate Level (07/05/2025) ???Lactate - 1.6 mmol/L LFT's (07/06/2025) ???Protein, Total - 6.5 Gm/dL???Albumin - 3.6 Gm/dL???Alkaline Phosphatase - 64 units/L???AST (SGOT) - 20 units/L???ALT (SGPT) - 13 units/L???Bilirubin, Total - 0.4 mg/dL???Bilirubin, Direct - 0.1 mg/dL???Bilirubin, Indirect - 0.3 mg/dL Lipase (07/05/2025) ???Lipase, Serum/Plasma - 32 units/L Methadone Urine (07/06/2025) ???Methadone Screen, Urine - NONE DETECTED Opiate Screen Urine (07/06/2025) ???Opiate Screen, Urine - POSITIVE Oxycodone Screen Urine (07/06/2025) ???Oxycodone Screen, Urine - POSITIVE RESP PATH PANEL W/COVID-19 (07/05/2025) ???Adenovirus by PCR - NEGATIVE???Coronavirus 229E by PCR (not COVID-19) - NEGATIVE???Coronavirus HKU1 by PCR (not COVID-19) - NEGATIVE???Coronavirus NL63 by PCR (not COVID-19) - NEGATIVE???Coronavirus OC43 by PCR (not COVID-19) - NEGATIVE???Human Metapneumovirus by PCR - NEGATIVE???Rhinovirus/Enterovirus by PCR - NEGATIVE???Influenza A by PCR - NEGATIVE???Influenza B by PCR - NEGATIVE???Parainfluenza 1 by PCR - NEGATIVE???Parainfluenza 2 by PCR - NEGATIVE???Parainfluenza 3 by PCR - NEGATIVE???Parainfluenza 4 by PCR - NEGATIVE???RSV by PCR - NEGATIVE???Bordetella Pertussis by PCR - NEGATIVE??? Chlamydophila Pneumoniae by PCR - NEGATIVE???Mycoplasma Pneumoniae by PCR - NEGATIVE???COVID-19 (SARS-CoV-2) by PCR - NEGATIVE???Bordetella Parapertussis by PCR - NEGATIVE Troponin T, High Sensitivity (07/06/2025) ???High Sensitivity Troponin (HSTnT) - 35 ng/L UA with hold for urine culture (07/06/2025) ???Appear/Color, Urine - LIGHT YELLOW???Specific [place], Urine - 1.012???pH, Urine - 7.5???Albumin, Urine - 2+???Glucose, Urine - 4+???Ketones, Urine - 1+???Bilirubin, Urine - NEGATIVE???Hemoglobin,Urine - TRACE???Nitrite, Urine - NEGATIVE???Leukocyte, Urine - NEGATIVE???Urobilinogen - NORMAL???WBC's, Urine - 3 /HPF???RBC's, Urine - 7 /HPF???Bacteria - SLIGHT???Hold Urine Culture - Testing available 48 hours from time of collection. Urinalysis w/hold for Urine Culture (07/05/2025) ???Appear/Color, Urine - LIGHT YELLOW???Specific [place], Urine - 1.019???pH, Urine - 7.0???Albumin, Urine - 2+???Glucose, Urine - 4+???Ketones, Urine - NEGATIVE???Bilirubin, Urine - NEGATIVE???Hemoglobin, Urine - 1+???Nitrite, Urine - NEGATIVE???Leukocyte, Urine - NEGATIVE???Urobilinogen - NORMAL?? WBC's, Urine - 3 /HPF RBC's, Urine - 4 /HPF Squamous Epith - <1 /HPF Hyaline Cast - 2 LPF ??Mucus - SLIGHT???Hold Urine Culture - Testing available 48 hours from time of collection. Allergies (NKA means No Known Allergies) NKA Problems Active Problems??(24) CAD in tribal artery?? Carotid stenosis?? CKD (chronic kidney disease) stage 3, GFR 30-59 ml/min?? Diabetes mellitus?? Diverticulosis?? Ex-cigarette smoker?? Extensive degenerative disc changes from C4 to C7?? Fecal incontinence?? Generalized anxiety disorder?? GERD without esophagitis?? Hyperlipidemia?? Hypertension?? Iliac artery stenosis, bilateral?? Insomnia?? Migraine?? Neuropathy?? Pain syndrome, chronic?? Parasomnia?? Peripheral artery disease?? Peripheral neuropathy?? RLS (restless legs syndrome)?? Sciatica?? Several 2 mm peripheral nodules high in right upper lobe?? Snoring?? Education Materials Below is the list of Educational Leaflet Providered with your Discharge Instructions. Web[employer] Patient Education - Zones UTI?? [employer] Patient Education - Urinary Tract Infections in Women?? Valuables and Belongings I fully understand and agree that [facility] accepts no responsibility for all my personal property including clothing, toilet articles, radios, jewelry, dentures, hearing aids, rings, money, or any other property that is in my possession or is brought to me after admission. I understand certain valuables may be placed in a hospital safe for a short period of time. I understand that the hospital is not liable for loss or damage due to accident, fire, or other natural occurrence while said property is in the safe. I accept full responsibility for any personal property that I keep with me, and will not hold the hospital responsible in case of loss or disappearance. I acknowledge that i have been encouraged to send valuables and belongings home. ?? Date for Pt to Sign Valuables/Belongings: 07/06/25 16:25:00 ?? Other Discharge Information ? Case Management Discharge Plan?? Discharge Plan?? Discharge Level of Care at Discharge: Home/Shelter/Foster Care Discharge Transportation Arranged: [facility] [id number] [phone] Mode of Transportation Arranged: Chair Van Discharge Arranged Transport Date/Time: 07/07/25 16:00:00 ?? Pulmonary Rehab Status?? Pulmonary Rehab Discharge Status?? Respiratory Rate: 18 br/min ? Common Emergency Awareness Tips IS IT A STROKE? Act FAST and Check for these signs: FACE Does the face look uneven? ARM Does one arm drift down? SPEECH Does their speech sound strange? TIME Call at any sign of stroke ?? Heart Attack Signs Chest discomfort: Most heart attacks involve discomfort in the center of the chest and lasts more than a few minutes, or goes away and comes back. It can feel like uncomfortable pressure, squeezing, fullness or pain. Discomfort in upper body: Symptoms can include pain or discomfort in one or both arms, back, neck, jaw or stomach. Shortness of breath: With or without discomfort. Other signs: Breaking out in a cold sweat, nausea, or lightheaded. Remember, MINUTES DO MATTER. If you experience any of these heart attack warning signs, call to get immediate medical attention! ?? Smoking can increase your chances of developing chronic health problems and can cause harmful effects to other family members in your house. If you smoke, you are strongly encouraged to quit. Please call [facility] [employer] Link at [phone] or [phone] ([phone]) or log in to [email or web address] for referrals to smoking cessation programs. ?? 975 Suicide & Crisis Lifeline is available 02/02 if you or someone you know needs to find a reason to keep living. By calling 025 you'll be connected to a skilled, trained counselor at a crisis center in your area. INPATIENT DISCHARGE INSTRUCTIONS SIGNATURE PAGE CASANDRA MCCLAIN Location: Registration Date and Time:07/05/2025 15:44 EST Primary Care Physician: Diandra Grady MD, Attending Physician: David Flor MD, I CASANDRA MCCLAIN, have received the above patient education materials/instructions and have verbalized understanding. If ambulance or transport services are being used I further acknowledge being given a choice of service. ?? If you need to contact me, please call me at this number: . Patient/Armoring Machine Operator Name: Patient/Armoring Machine Operator Signature: Relationship to Patient: Witness Name/Signature: Date: * David Flor MD: PERFORM, SIGN, VERIFY Event Display: Patient Education Handout Authored Date: [id number] * Suzette Jorge RN: PERFORM Event Display: Patient Education Leaflets Authored Date: [id number] Zones UTI ?? 479 URINARY TRACT INFECTION ZONES EVERY DAY Urinary Tract Infections occur when bacteria enters the urethra and travels up to the bladder. ?? EVERY DAY: ??? Take your medicine as directed by your doctor.?? Be sure to take as directed until medicine is complete. ??? Keep an updated medicine list with you. ??? Be sure to see your primary care provider within a few days for a follow up. ??? Drink plenty of fluids.?? 9-13 eight-ounce glasses per day. ??? Pee often.?? Do not hold urine in. ??? Rest often. ??? Avoid sex if your partner has an infection. Which Zone are you today? GREEN, YELLOW, or RED? GREEN ZONE ALL CLEAR - This zone is your goal Your symptoms are under control when: ??? You have no fever or pain when peeing YELLOW ZONE ?? STOP & CALL CAUTION - This zone is a warning If you have one or more, of the following: Call Your Doctor: ??? You have questions or concerns about your medicines or condition. ??? You have a fever. ??? You have blood in your urine. ??? You have new or worse pain or burning when peeing. ??? Your urine looks cloudy or has a bad smell. ??? You feel the need to urinate more often. [facility] Seek care immediately if you have any of the following (DO NOT DRIVE YOURSELF): ??? You pee small amounts or not at all. ??You feel like you cannot empty your bladder completely. ??? You feel confused. ??? You have shaking chills with a fever. ??? You begin vomiting and cannot keep down liquids. ??? You have side or back pain that is getting worse. ???You are breathing faster than usual or have a fast heart beat. ? * Suzette Jorge RN: PERFORM Event Display: Patient Education Leaflets Authored Date: [id number] Urinary Tract Infections in Women ?? 1144 Urinary Tract Infections in Women Urinary tract infections (UTIs) are most often caused by??bacteria. These bacteria enter the urinary tract. The bacteria may come from inside the body. Or they may travel from the skin outside the??rectum or vagina into the urethra. Female anatomy makes it easy for bacteria from the bowel??to entera person???s urinary tract. This is the most common source of UTIs. This means women develop UTIs more often than men. Pain in or around the urinary tract is a common UTI symptom. But the only way to know for sure if you have a UTI is for the healthcare provider to test your pee. The two tests that may be done are the urinalysis and urine culture. These tests tell your provider if you have a UTI and what type of bacteria is causing it. Gender words are used here to talk about anatomy and health risk. Please use this information in a way that works best for you and your provider as you talk about your care. Types of UTIs ??? Cystitis.??A bladder infection (cystitis) is the most common UTI in women. You may have an urgent or frequent need to pee. You may also have??pain, burning when you pee, and bloody urine. ??? Urethritis.??This is an inflamed urethra. This is the tube that carries urine from the bladder to outside the body. You may have lower stomach or back pain. You may also have an urgent or frequent need to pee. ??? Pyelonephritis.??This is a kidney infection. It can be serious and damage your kidneys if not treated. You may need to stay in the??hospital in severe cases. You may have a fever and lower back pain. Medicines to treat a UTI Most UTIs are treated with antibiotics. These kill the bacteria. The length of time you need to take them depends on the type of infection. It may be as short as 3 days. You may need a low-dose antibiotic??for several months if you have repeated UTIs. Take antibiotics exactly as directed. Don???t stop taking them until all of the medicine is gone, even if you feel better. The infection may not goaway fully and return if you stop taking the antibiotic too soon. You may also develop a resistanceto the antibiotic. This can make it much harder to treat. Lifestyle changes to treat and prevent UTIs The lifestyle changes below will help get rid of your UTI. They may also help prevent future UTIs. ??? Drink plenty of fluids.??This includes water, juice, or other caffeine-free drinks. Fluids help flush bacteria out of your body. ??? Empty your bladder.??Always empty your bladder when you feel the urge to pee. And always pee before going to sleep. Urine that stays in your bladder can lead to infection. Try to pee before and after sex as well. ??? Practice good personal hygiene.??Wipe yourselffrom front to back after using the toilet. This helps keep bacteria from getting into the urethra. ??? Wear cotton underwear.??Don't wear synthetic or tight-fitting underwear that can trap moisture. Change out of wet bathing suits and workout clothing quickly. ??? Take showers.??Showers are better than baths for preventing UTIs. ??? Use condoms during sex.??These help prevent UTIs caused by sexually transmitted bacteria. Also don't use spermicides during sex. These can increase the risk for UTIs. Choose other forms of control instead. A low dose of a preventive antibiotic may be used for women who tend to get UTIs after sex. Be sure to discuss this choice with your healthcare provider. ??? Follow up with your healthcare provider as directed.??They may test to make sure the infectionhas cleared. If needed, more treatment may be started. ?? Patient Care team information Care Team Personnel Name: Lizbet Atkins Position: [facility] Outreach Member Role: Lifetime Consulting Physician Name: Bautista Couch RN Position: [facility] RN Member Role: Primary Care Nurse Name: Gisell Bueno RN Position: [facility] RN Member Role: Primary Care Nurse Name: Genoveva Solis RN Position: [facility] RN Member Role: Primary Care Nurse Name: Lu Owens NP Position: [facility] Associate Professional Member Role: Primary Care Nurse Address: [address] [place] [address]- Telecom: Name: Rosalie Blue RN Position: [facility] RN Member Role: Primary Care Nurse Name: Mandi Doshi RN Position: [facility] RN Member Role: Primary Care Nurse Name: Bell Millard RN Position: S RN Member Role: Primary Care Nurse Name: Doris Salinas RN Position: S RN Member Role: Primary Care Nurse Name: Shelley Mojica RN Position: [facility] RN Member Role: Primary Care Nurse Name: Melvi Robbins RN Position: [facility] RN Member Role: Primary Care Nurse Name: Derrick Cazares RN Position: [facility] RN Member Role: Primary Care Nurse Name: Raya Deleon RN Position: [facility] RN Member Role: Primary Care Nurse Name: Leilani Locke Position: [facility] AMB Nurse Member Role: Lifetime Consulting Physician Name: Brittanie Joseph RN Position: [facility] ED RN W/OE and Tasks Member Role: Primary Care Nurse Name: Sue Sierra RN Position: [facility] ED RN W/OE and Tasks Member Role: Primary Care Nurse Name: Jocelyne Goldberg RN Position: [facility] RN Member Role: Primary Care Nurse Name: Sumeet Krause MD Position: [facility] Renal MD Member Role: Lifetime Consulting Physician Address: [address] [place], [place] [id number] [facility] [place] [address]- Telecom: Name: Palmira Valenzuela RN Position: [facility] RN Member Role: Primary Care Nurse Name: Diandra Grady MD Position: Reference Physician Member Role: PCP Address: [address] [place] [address]- Telecom: Name: Yas Vidales RN Position: [facility] RN Member Role: Primary Care Nurse Name: Hanna Escalante RN Position: [facility] RN Member Role: Primary Care Nurse Name: Eryn Plummer RN Position: [facility] RN Member Role: Primary Care Nurse Name: Armida Plummer RN Position: [facility] OB RN Member Role: Primary Care Nurse Name: Gela Melara RN Position: [facility] RN Member Role: Primary Care Nurse Name: Lucero Kim LPN Position: [facility] RN Member Role: Primary Care Nurse Name: Myra Jimenez RN Position: [facility] RN Member Role: Primary Care Nurse Name: Citlali Lloyd RN Position: [facility] RN Member Role: Primary Care Nurse Name: Barbara Tian RN Position: [facility] RN Member Role: Primary Care Nurse Name: Colleen Vega RN Position: [facility] RN Member Role: Primary Care Nurse Name: Jesus Alvarenga RN Position: [facility] RN Member Role: Primary Care Nurse Care Team Related Persons Name: PASCUAL MCCLAIN Name: ANDREA BANKS Name: ANDREA BANKS Name: MANI BERRY Insurance Providers Guarantor name: CASANDRA MCCLAIN [facility] Information #: 1 Payer: [employer] MED[employer]ARE ADV PPO Payer Identifier: NA Member Number: [id number] Group Number: [id number] Subscriber Identifier: [id number] Relationship to Subscriber: self Coverage Type: Medicare PPO Coverage Verification Date: NA Telecom: NA Address: Health Plan Information #: [address] [facility] Payer Identifier: NA Member Number: [id number] Group Number: NA Subscriber Identifier: [id number] Relationship to Subscriber: self Coverage Type: MEDICAID Coverage Verification Date: Telecom: Address:
--- OUTSIDE RECORDS SUMMARY | 2025-07-08 00:33 | XMS_ITS | Encounter Summary ---
Author Organization [facility] Address [address] [place] [address] Care Team Providers Care Congressional Representative Name Role Phone Diandra Grady MD Primary Care Provider [phone] Reason for Visit * Reason Comments Altered Mental Status Encounter Details Date Type Department Care Team (Late st Contact Info) Description 07/08/2025 12:33 AM EST - 07/08/2025 7:30 AM EST Emergency [facility] Emergency [address] [place] [address] Spencer Cotton MD [address] [place] [address] Lower urinary tract infectious disease (Primary Dx) Discharge Disposition: Home or Self Care Social History Tobacco Use Types Packs/Day Years [...] Sign Reading Time Taken Comments Blood Pressure 115/56 07/08/2025 5:36 AM EST Pulse 56 07/08/2025 5:36 AM EST Temperature 36.4 C (97.5 F) 07/08/2025 3:01 AM EST Respiratory Rate 18 07/08/2025 5:36 AM EST Oxygen Saturation 100% 07/08/2025 5:36 AM EST Inhaled Oxygen Concentration - - Weight - - Height - - Body Mass Index - - documented in this encounter Discharge Instructions * Discharge Instructions* Spencer Cotton MD - 07/08/2025 5:08 AM EST Drink Plenty of fluids Take Antibiotic as prescribed Follow-up with your PCP * Attachments The following attachments cannot be sent through Care Everywhere. * UTI (Urinary Tract Infection): Female (Indonesian) documented in this encounter Medications at Time of Discharge albuterol HFA (PROAIR HFA ; PROVENTIL HFA ; VENTOLIN HFA) 90 mcg/actuation inhaler 02/17/2024 ALPRAZolam (XANAX) 2 mg tablet 05/13/2024 atomoxetine (STRATTERA) 25 mg capsule 05/02/2024 blood sugar diagnostic (thesweetlinkTouch Verio test strips) test strip 01/08/2024 cefuroxime (CEFTIN) 250 mg tablet Take 1 tablet (250 mg total) by mouth 2 (two) times a day for 10 days. 20 each 07/08/2025 6 cyanocobalamin (VITAMIN B-12) 1,000 mcg tablet 10/23/2023 DULoxetine (CYMBALTA) [address] capsule 05/17/2024 eletriptan (RELPAX) 40 mg tablet 03/30/2024 ezetimibe (ZETIA) 10 mg tablet 05/06/2024 hydrOXYzine HCL (ATARAX) 50 mg tablet 10/20/2023 Jardiance 25 mg tablet 10/30/2023 lisinopriL (PRINIVIL,ZESTRIL) 20 mg tablet 04/28/2024 loperamide (IMODIUM) 2 mg capsuleIndications:I rritable bowel syndrome with diarrhea Take 2 capsules (4 mg total) by mouth 3 (three) times a day if needed for diarrhea. 180 capsule 11 11/09/2024 metFORMIN XR (GLUCOPHAGE-XR) 500 mg 24 hr tablet 01/21/2024 naloxone (NARCAN) 4 mg/0.1 mL nasal spray 12/26/2023 nitroglycerin (NITROSTAT) 0.4 mg SL tablet 02/17/2024 ondansetron ODT (ZOFRAN-ODT) 8 mg disintegrating tablet 04/19/2024 oxyCODONE (ROXICODONE) 15 mg immediate release tablet 05/10/2024 pantoprazole (PROTONIX) 40 mg EC tabletIndications:Ga stroesophageal reflux disease without esophagitis Take 1 tablet (40 mg total) by mouth 2 (two) times a day before meals. Do not crush, chew, or split. 60 each 11 11/09/2024 polyethylene glycol (MIRALAX) 17 gram packet 05/12/2024 promethazine (PHENERGAN) 25 mg tablet 12/18/2023 rosuvastatin (CRESTOR) 40 mg tablet 04/28/2024 simethicone (Mylanta Gas) 125 mg chewable tabletIndications:Fl atulence/gas pain/belching Chew 1 tablet (125 mg total) 4 (four) times a day (before meals and nightly). 120 tablet 11 07/28/2024 simethicone (MYLICON,GAS-X) 180 mg capsuleIndications:G astroesophageal reflux disease without esophagitis,Irritabl e bowel syndrome with diarrhea Take 1 capsule (180 mg total) by mouth 4 (four) times a day if needed for flatulence. 120 capsule 11 11/09/2024 Trulicity 1.5 mg/0.5 mL pen injector injection 02/15/2024 documented as of this encounter Ordered Prescriptions Prescription Sig Dispense Quantity Refills Last Filled Start Date End Date cefuroxime (CEFTIN) 250 mg tablet Take 1 tablet (250 mg total) by mouth 2 (two) times a day for 10 days. 20 each 07/08/2025 07/18/2025 documented in this encounter Discharge Disposition Disposition Code Departure Means Destination Comment s Home or Self Longterm documented in this encounter Progress Notes * Clara Zamorano RN - 07/08/2025 12:36 AM EST PT FROM HOME WITH RECENT DIAGNOSIS OF BLADDER INFECTION. CONFUSED AND PER FAMILY NOT AT BASELINE. STROKE SCALE NEGATIVE PER EMS.ISCHARGED FROM [facility] YESTERDAY Clara Zamorano RN 07/08/25 0038 documented in this encounter Plan of Treatment Upcoming Encounters Date Type Department Care Team (Late st Contact Info) Description 01/02/2026 3:20 PM EDT Office Visit Gastroenterology - [address] [place] [address] Nurys Martinez NP [address] [place] [address] documented as of this encounter Procedures Procedure Name Priority Date/Time Associated Diagnosis Comments CT ABDOMEN PELVIS WO CONTRAST STAT 07/08/2025 3:13 AM EST URINALYSIS WITH REFLEX MICROSCOPIC STAT 07/08/2025 1:43 AM EST URINALYSIS WITH REFLEX MICROSCOPIC STAT 07/08/2025 1:43 AM EST CBC WITH AUTO DIFFERENTIAL STAT 07/08/2025 1:03 AM EST CBC AND DIFFERENTIAL STAT 07/08/2025 1:03 AM EST LACTATE STAT 07/08/2025 1:03 AM EST COMPREHENSIVE METABOLIC PANEL STAT 07/08/2025 1:03 AM EST documented in this encounter Results * CT Abdomen Pelvis wo Contrast (07/08/2025 3:13 AM EST) Anatomical Region Laterality Modality Body Computed Tomogra phy 07/08/2025 4:15 AM EST Impressions 07/08/2025 4:15 AM EST 1. Evaluation for infectious process including pyelonephritis is limited without IV contrast. 2. A small hiatal hernia. 3. Hepatomegaly. 4. Colonic diverticuli without diverticulitis. 5. Chronic superior endplate fracture deformities of L1 and L2 both contributing to 50% height loss of the vertebral bodies. This document has been electronically signed by: Neil Lundberg DO on 07/08/2025 04:15:54 Narrative 07/08/2025 4:15 AM EST INDICATION: ? Pyelonephritis/stone CT abdomen and pelvis without contrast Comparison: None provided Findings: Evaluation for infectious process including pyelonephritis is limited without IV contrast. Linear and subsegmental atelectasis of the lung bases. Dense calcifications of the mitral valve. Small hiatal hernia, the remaining stomach is nondistended. Atherosclerosis of the abdominal aorta. Endovascular stent graft of the distal abdominal aorta which extends into the iliac vasculature. Hepatomegaly. Cholecystectomy. Pancreatic atrophy. The spleen is normal. Chronic thickening of the adrenal glands. Vascular calcifications of the bilateral renal hilum. No ureterolithiasis. Small cortical cyst of the right kidney. A dilated urinary bladder. Atrophied uterus. The adnexa are normal. No bowel obstruction, pneumoperitoneum, or pneumatosis. Colonic diverticuli without diverticulitis. Mild colonic fecal burden greatest involving the proximal colon. Normal appendix. Degenerative changes of the lumbar spine. Chronic superior endplate fracture deformities of L1 and L2 both contributing to 50% height loss. No bony retropulsion. Procedure Note Neil Lundberg MD - 07/08/2025 INDICATION: ? Pyelonephritis/stone CT abdomen and pelvis without contrast Comparison: None provided Findings: Evaluation for infectious process including pyelonephritis is limited without IV contrast. Linear and subsegmental atelectasis of the lung bases. Dense calcifications of the mitral valve. Small hiatal hernia, the remaining stomach is nondistended. Atherosclerosis of the abdominal aorta. Endovascular stent graft of the distal abdominal aorta which extends into the iliac vasculature. Hepatomegaly. Cholecystectomy. Pancreatic atrophy. The spleen is normal. Chronic thickening of the adrenal glands. Vascular calcifications of the bilateral renal hilum. No ureterolithiasis. Small cortical cyst of the right kidney. A dilated urinary bladder. Atrophied uterus. The adnexa are normal. No bowel obstruction, pneumoperitoneum, or pneumatosis. Colonic diverticuli without diverticulitis. Mild colonic fecal burden greatest involving the proximal colon. Normal appendix. Degenerative changes of the lumbar spine. Chronic superior endplate fracture deformities of L1 and L2 both contributing to 50% height loss.No bony retropulsion. IMPRESSION: 1. Evaluation for infectious process including pyelonephritis is limited without IV contrast. 2. A small hiatal hernia. 3. Hepatomegaly. 4. Colonic diverticuli without diverticulitis. 5. Chronic superior endplate fracture deformities of L1 and L2 both contributing to 50% height loss of the vertebral bodies. This document has been electronically signed by: Neil Lundberg DO on 07/08/2025 04:15:54 Spencer Cotton MD IM CT PROCEDURES Final R esult * (ABNORMAL) Urinalysis with reflex microscopic (07/08/2025 1:43 AM EST) Specific [place] Urine 1.014 1.003 - 1.030 LAB URINALYSIS - AUTOMATED METHOD 07/08/2025 2:25 AM [facility] pH, Urine 6.0 5.0 - 8.0 pH LAB URINALYSIS - AUTOMATED METHOD 07/08/2025 2:25 AM [facility] Leukocytes, Urine Moderate(A) Negative LAB URINALYSIS - AUTOMATED METHOD 07/08/2025 2:25 AM [facility] Nitrite, Urine Negative Negative LAB URINALYSIS - AUTOMATED METHOD 07/08/2025 2:25 AM [facility] Protein, Urine 30(A) <=Trace mg/dL LAB URINALYSIS - AUTOMATED METHOD 07/08/2025 2:25 AM [facility] Glucose, Urine >=1000(A) Negative mg/dL LAB URINALYSIS - AUTOMATED METHOD 07/08/2025 2:25 AM [facility] Ketones, Urine Negative Negative mg/dL LAB URINALYSIS - AUTOMATED METHOD 07/08/2025 2:25 AM [facility] Urobilinogen , Urine 0.2 0.2 - 1.0 mg/dL LAB URINALYSIS - AUTOMATED METHOD 07/08/2025 2:25 AM [facility] Bilirubin, Urine Negative Negative LAB URINALYSIS - AUTOMATED METHOD 07/08/2025 2:25 AM EST [facility] Blood, Urine Trace(A) Negative LAB URINALYSIS - AUTOMATED METHOD 07/08/2025 2:25 AM [facility] RBC, Urine 4 0 - 4 /HPF 07/08/2025 2:25 AM [facility] WBC, Urine >100(H) 0 - 4 /HPF 07/08/2025 2:25 AM [facility] Squamous Epithelial, Urine 50 0 - 60 /LPF 07/08/2025 2:25 AM [facility] Bacteria, Urine Moderate(A) Negative /HPF 07/08/2025 2:25 AM [facility] Hyaline Casts, Urine 3 0 - 3 /LPF 07/08/2025 2:25 AM [facility] Urine Urine specimen obtained by clean catch procedure / Unknown Non-blood Collection / Unknown 07/08/2025 1:43 AM EST 07/08/2025 1:58 AM EST us Spencer Cotton MD LAB URINE ORDERABLES Carolyn sharma Result [facility] [address] [place] [address], [place] [phone] * (ABNORMAL) CBC auto differential (07/08/2025 1:03 AM EST) WBC 17.0(H) 4.8 - 10.8 K/mcL LAB HEMETOLOGY METHOD 07/08/2025 1:31 AM [facility] RBC 4.60 3.80 - 4.80 M/mcL LAB HEMETOLOGY METHOD 07/08/2025 1:31 AM [facility] Hemoglobin 12.9 11.5 - 16.0 g/dL LAB HEMETOLOGY METHOD 07/08/2025 1:31 AM [facility] Hematocrit 39.5 35.0 - 47.0 % LAB HEMETOLOGY METHOD 07/08/2025 1:31 AM [facility] MCV 86.4 79.0 - 98.0 FL LAB HEMETOLOGY METHOD 07/08/2025 1:31 AM [facility] MCH 28.2 27.0 - 32.0 pcg LAB HEMETOLOGY METHOD 07/08/2025 1:31 AM [facility] MCHC 32.7 32.0 - 37.0 g/dL LAB HEMETOLOGY METHOD 07/08/2025 1:31 AM [facility] RDW 13.2 11.0 - 15.0 % LAB HEMETOLOGY METHOD 07/08/2025 1:31 AM [facility] Platelets 376 130 - 400 K/mcL LAB HEMETOLOGY METHOD 07/08/2025 1:31 AM [facility] MPV 8.9 7.0 - 11.0 FL LAB HEMETOLOGY METHOD 07/08/2025 1:31 AM [facility] NRBC 0.0 <1.0 % LAB HEMETOLOGY METHOD 07/08/2025 1:31 AM [facility] NRBC Absolute 0.00 <0.10 K/mcL LAB HEMETOLOGY METHOD 07/08/2025 1:31 AM [facility] Neutrophils Relative 80.4 % LAB HEMETOLOGY METHOD 07/08/2025 1:31 AM [facility] Lymphocytes Relative 14.8 % LAB HEMETOLOGY METHOD 07/08/2025 1:31 AM [facility] Monocytes Relative 4.0 % LAB HEMETOLOGY METHOD 07/08/2025 1:31 AM [facility] Eosinophils Relative 0.1 % LAB HEMETOLOGY METHOD 07/08/2025 1:31 AM [facility] Basophils Relative 0.2 % LAB HEMETOLOGY METHOD 07/08/2025 1:31 AM [facility] Immature Granulocytes Relative 0.5 % LAB HEMETOLOGY METHOD 07/08/2025 1:31 AM [facility] Neutrophils Absolute 13.66(H) 1.50 - 7.00 K/mcL LAB HEMETOLOGY METHOD 07/08/2025 1:31 AM [facility] Lymphocytes Absolute 2.51 1.00 - 5.00 K/mcL LAB HEMETOLOGY METHOD 07/08/2025 1:31 AM [facility] Monocytes Absolute 0.68 0.20 - 1.00 K/mcL LAB HEMETOLOGY METHOD 07/08/2025 1:31 AM [facility] Eosinophils Absolute 0.02 0.00 - 0.50 K/mcL LAB HEMETOLOGY METHOD 07/08/2025 1:31 AM [facility] Basophils Absolute 0.03 0.00 - 0.20 K/mcL LAB HEMETOLOGY METHOD 07/08/2025 1:31 AM [facility] Immature Granulocytes Absolute 0.08(H) 0.00 - 0.03 K/mcL LAB HEMETOLOGY METHOD 07/08/2025 1:31 AM [facility] Blood Venous blood specimen / Unknown Venipuncture / Unknown 07/08/2025 1:03 AM EST 07/08/2025 1:23 AM EST us Spencer Cotton MD LAB BLOOD ORDERABLES Carolyn l Result [facility] [address] [place] [address], * (ABNORMAL) Comprehensive Metabolic Panel (CMP) (07/08/2025 1:03 AM EST) Sodium 133 133 - 145 mmol/L 07/08/2025 2:26 AM EST [facility] Potassium 4.3 3.5 - 5.5 mmol/L 07/08/2025 2:26 AM [facility] Chloride 103 96 - 110 mmol/L 07/08/2025 2:26 AM [facility] CO2 20(L) 21 - 32 mmol/L 07/08/2025 2:26 AM [facility] Anion Gap 10 3 - 11 07/08/2025 2:26 AM [facility] Glucose 150(H) 70 - 100 mg/dL 07/08/2025 2:26 AM [facility] BUN 16 5 - 25 mg/dL 07/08/2025 2:26 AM [facility] Creatinine 1.15(H) 0.50 - 1.10 mg/dL 07/08/2025 2:26 AM [facility] eGFR 51(L) >=60 mL/min/1. 73m2 07/08/2025 2:26 AM [facility] Comment:Calculation based on the Chronic Kidney Disease Epidemiology Collaboration (CKD-EPI) equation refit without adjustment for race. BUN/Creatinine Ratio 13.9 07/08/2025 2:26 AM [facility] Calcium 8.0(L) 8.5 - 10.5 mg/dL 07/08/2025 2:26 AM [facility] AST (SGOT) 27 10 - 42 unit/L 07/08/2025 2:26 AM [facility] ALT (SGPT) 17 10 - 60 unit/L 07/08/2025 2:26 AM [facility] Alkaline Phosphatase 56 42 - 121 unit/L 07/08/2025 2:26 AM [facility] Total Protein 5.5(L) 6.0 - 8.0 g/dL 07/08/2025 2:26 AM [facility] Albumin 3.3 3.2 - 5.0 g/dL 07/08/2025 2:26 AM EST [facility] Total Bilirubin 0.3 0.0 - 1.4 mg/dL 07/08/2025 2:26 AM EST [facility] Blood Venous blood specimen / Unknown Venipuncture / Unknown 07/08/2025 1:03 AM EST 07/08/2025 1:23 AM EST Spencer Cotton MD LAB BLOOD ORDERABLES Carolyn l Result [facility] [address] [place] [address], [place] [phone] * Lactate (07/08/2025 1:03 AM EST) Lactate 1.3 0.4 - 2.0 mmol/L 07/08/2025 1:49 AM EST [facility] Blood Venous blood specimen / Unknown Venipuncture / Unknown 07/08/2025 1:03 AM EST 07/08/2025 1:24 AM EST Spencer Cotton MD LAB BLOOD ORDERABLES Carolyn l Result Performing Organization Address City/[facility]/ZIP Co de Phone Number [facility] [address] [place] [address], [place] [phone] documented in this encounter Visit Diagnoses Diagnosis Lower urinary tract infectious disease- Primary Urinary tract infection, site not specified documented in this encounter Administered Medications Inactive Administered Medications - up to 3 most recent administrations Medication Order MAR Action Action Date Dose Rate Site cefTRIAXone (ROCEPHIN) 1 g in sterile water 10 mL IV syringe 1 g, intravenous, Administer over 3 Minutes, Once, On 07/08/25 at 0240, For 1 dose, Do not administer simultaneously with any calcium containing solutions via a Y-site in any patient., Indication: Urinary Tract/Genitourinary Given 07/08/2025 2:53 AM EST 1 g sodium chloride 0.9 % bolus 1,000 mL 1,000 mL, intravenous, at 1,000 mL/hr, Administer over 1 Hours, Once, On 07/08/25 at 0059, For 1 dose New Bag 07/08/2025 1:31 AM EST 1,000 mL 1000 mL/hr documented in this encounter Active and Recently Administered Medications Times are shown in EST. Scheduled Medication Order 07/06/2025 07/07/2025 07/08/2025 cefTRIAXone (ROCEPHIN) 1 g in sterile water 10 mL IV syringe (COMPLETED) 1 g, intravenous, Administer over 3 Minutes, Once, On 07/08/25 at 0240, For 1 dose, Do not administer simultaneously with any calcium containing solutions via a Y-site in any patient., Indication: Urinary Tract/Genitourinary 0253 (Given - Provid er: Bernie Scherer RN) sodium chloride 0.9 % bolus 1,000 mL (COMPLETED) 1,000 mL, intravenous, at 1,000 mL/hr, Administer over 1 Hours, Once, On 07/08/25 at 0059, For 1 dose 0131 (New Bag - Prov ider: Bernie Scherer RN)0248 (Stopped - Provider: Bernie Scherer RN) documented in this encounter Orders IV Count Last Ordered Date First Orde red Date INSERT PERIPHERAL IV 1 07/08/2025 documented in this encounter Care Teams Congressional Representative Relationship Specialty Start Date End Date Po, MD Diandra [address] [place] [address] Dr [address] [facility] [place] [address] PCP - General Internal Medicine 07/15/21 documented as of this encounter
[2025-07-08 15:14] VITALS: BP 135/63; PULSE 95; RESP 18; TEMP 35.8; O2SAT 97; BMI 21.7
--- NOTE | 2025-07-08 15:31 | ED.GENADULT ---
HPI - General Adult General Chief complaint: Seizure Stated complaint: She thinks she just had a seizure Related Data Home Medications ?Medication ?Instructions ?Recorded ?Confirmed atomoxetine 25 mg capsule 25 mg PO QAM 05/01/20 07/10/25 atomoxetine 60 mg capsule 60 mg PO QAM 05/01/20 07/10/25 blood-glucose meter #1 ea 05/01/20 06/26/25 empagliflozin 25 mg tablet 25 mg PO QAM 05/01/20 07/10/25 lancets 33 gauge #100 ea 05/01/20 06/26/25 pen needle, diabetic 31 gauge x #50 ea 05/01/20 06/26/2509/25 diphenoxylate-atropine 2.5 tab PO BID 09/12/24 07/10/25 mg-0.025 mg tablet hydroxyzine HCl 50 mg tablet mg PO BEDTIME 09/12/24 07/10/25 omeprazole 40 mg capsule,delayed 40 mg PO DAILY 02/02/25 07/10/25 release Previous Rx's ?Medication ?Instructions ?Recorded blood sugar diagnostic #100 ea 11/23/20 naloxone 4 mg/actuation nasal 4 mg intranasal Q3M PRN opioid 03/14/21 spray (Narcan) overdose #2 ea mupirocin 2 % topical ointment 1 appl topical 3XW #22 grams 09/02/22 flash glucose scanning reader #1 ea 04/29/24 (FreeStyle [place] 2 [place]) rosuvastatin 40 mg tablet 40 mg PO DAILY 30 days #30 tabs 05/26/24 flash glucose sensor (FreeStyle #6 kits 06/29/24 Mich 2 Sensor kit) trazodone 50 mg tablet 50 mg PO BEDTIME PRN sleep #30 tabs 09/05/24 ezetimibe 10 mg tablet (Zetia) 10 mg PO DAILY 30 days #90 tabs 09/28/24 blood-glucose,junior automation engineer,cont #1 ea 01/19/25 (Dexcom G7 Acquisition Professional) metoprolol succinate 50 mg 50 mg PO DAILY #30 tabs 02/02/25 tablet,extended release 24 hr (Toprol XL) nicotine 21 mg/24 hr daily 1 patch transdermal DAILY #28 ea 03/15/25 transdermal patch varenicline tartrate 0.5 mg (11)-1 See Rx Instructions PO PER PKG DIR 03/25/25 mg (42) tablets in a dose pack #53 ea (Chantix Starting Month Box) fluticasone fur. 200 mcg-umeclid 1 inh inhalation DAILY #60 ea 04/21/25 62.5 mcg-vilant 25 mcg inhalat.powder (Trelegy Ellipta) nitroglycerin 0.4 mg sublingual 0.4 mg PO .COMPLEX for angina #25 05/15/25 tablet tabs ipratropium 0.5 mg-albuterol 3 mg 3 ml inhalation Q4-6H PRN COPD 05/17/25 (2.5 mg base)/3 mL nebulization wheezing 30 days #180 mL soln mupirocin calcium 2 % topical cream 1 appl topical BID #30 grams 05/19/25 psyllium husk 0.52 gram capsule 1.04 g (2 x 0.52 gram) PO DAILY 05/19/25 (Fiber (psyllium husk)) #60 caps polyethylene glycol 3350 17 17 g PO DAILY 90 days #238 grams 06/05/25 gram/dose oral powder (Miralax) wheat dextrin 5 gram/7.4 gram oral 5 g PO DAILY 90 days #500 grams 06/05/25 powder (Benefiber Healthy Shape) albuterol sulfate 90 mcg/actuation 2 puff inhalation Q6H PRN 06/12/25 aerosol inhaler (Ventolin HFA) shortness of breath or wheezing #8.5 grams alprazolam 2 mg tablet 2 mg PO BID-TID PRN anxiety #90 06/16/25 tabs metformin 500 mg tablet,extended 1,000 mg (2 x 500 mg) PO BID #120 06/23/25 release 24 hr tabs ondansetron 8 mg disintegrating 8 mg PO Q8H PRN for 06/23/25 tablet nausea/vomiting #30 tabs oxycodone 15 mg tablet 15 mg PO Q6H PRN pain 2 days #8 07/01/25 tabs blood-glucose sensor (Dexcom G7 #6 ea 07/04/25 Sensor device) cefuroxime axetil 250 mg tablet 250 mg PO BID 7 days #14 tabs 07/10/25 Allergies Allergy/AdvReac Type Severity Reaction Status Date / Time No Known Allergies Allergy Verified 07/10/25 15:40 [facility] Past Medical History Medical History Anxiety COPD (chronic obstructive pulmonary disease) Right iliac artery stenosis Osteoarthritis Hypercholesterolemia Coronary artery disease Attention deficit disorder Right radial fracture Pulmonary nodule Diabetic nephropathy Carotid stenosis Anxiety and depression Hypertension Type 2 diabetes mellitus with hyperglycemia Lumbar spondylosis Surgical History History of tooth extraction H/O endarterectomy Amputation toe Family History Family History Father Stroke Mother Pancreatic cancer Son Sleep apnea Social History Social History Housing: House Alcohol intake: current Alcohol intake frequency: holidays/special occasions only Alcohol type: wine Patient Tobacco Use Status: Current everyday Tobacco user Tobacco use type: Cigarette Cigarette Packs Per Day: 1 Cigarettes Per Day: 20 e-Cigarette/Vaping Use: Never Used Second Hand Smoke Exposure: Yes Substance Use Type: Marijuana service: No Current occupational status: unemployed Cognitive needs: Yes (walker) Hearing needs: No Vision needs: Yes Physical Exam ED Vital Signs: Vital Signs - 24 hr 07/08/25 15:14 Temperature 96.5 F L Pulse Rate 95 Respiratory Rate 18 Blood Pressure 135/63 Pulse Oximetry 97 Oxygen Delivery Method Room Air BMI result Body Mass Index 21.7 Course Course Course Narrative: RME, this is a rapid medical exam performed by Tom Diaz please refer to primary provider for complete H&P- 70-year-old female presents for evaluation of I think I had a seizure. Patient reports that she lowered herself to the ground with help of family. She was shaking for reportedly 20 minutes. She was not incontinent. She reports that she was awake but could not talk. Plan for labs. She was seen here a few days ago for altered mental status Medical Decision Making Lab Data 07/08/25 15:58 07/08/25 15:58 Labs: Lab Results 07/08/25 Range/Units 15:58 WBC 10.2 (4.8-10.8) X10*3/uL RBC 4.62 (4.20-5.50) X10*6/uL Hgb 13.2 (12.0-16.0) g/dl Hct 40.6 (37.0-47.0) % MCV 87.9 (80.0-98.0) fL MCH 28.6 (27.0-33.0) pg MCHC 32.5 (31.0-35.0) g/dl RDW 13.3 (11.0-16.0) % Plt Count 337 (160-400) X10*3/uL MPV 8.9 L (9.4-12.3) fL Immature Gran % (Auto) 0.4 (0.0-0.4) % Neut % (Auto) 61.8 (45-73) % Lymph % (Auto) 31.9 (20-40) % [place] % (Auto) 5.1 (2-11) % Eos % (Auto) 0.5 (0-4) % Baso % (Auto) 0.3 (0-2) % Lymph # (Auto) 3.2 (1.2-4.9) X10*3/uL [place] # (Auto) 0.5 (0.1-1.2) X10*3/uL Eos # (Auto) 0.1 (0.0-0.4) X10*3/uL Baso # (Auto) 0.0 (0.0-0.2) X10*3/uL Abs Immat Gran (auto) 0.04 H (0.00-0.03) X10*3/uL Absolute Neuts (auto) 6.3 (2.0-8.3) x10*3/uL Absolute Nucleated RBC 0.000 (0.0-0.012) X10*3/uL Nucleated RBC % (auto) 0.0 (0.0-0.2) /100WBC Sodium 136 (135-145) mmol/L Potassium 4.1 (3.3-5.1) mmol/L Chloride 108 (96-108) mmol/L Carbon Dioxide 19 L (22-29) mmol/L Anion Gap 13 (12-20) BUN 12 (9-16) mg/dL Creatinine 1.01 (0.5-1.4) mg/dL Estim Creat Clear Calc 47.1 Estimated GFR 54 Random Glucose 143 H (60-115) mg/dL Calcium 8.7 D (8.4-10.2) mg/dL Total Bilirubin 0.2 (0.0-1.0) mg/dL AST 29 (5-31) U/L ALT 16 (0-31) U/L Alkaline Phosphatase 59 (39-117) U/L Total Creatine Kinase 116 (26-140) U/L Total Protein 6.3 L (6.5-8.0) g/dL Albumin 3.6 (3.5-5.0) g/dL Lipase 47 (8-78) U/L Ethyl Alcohol < 10 mg/dL Discharge Plan Discharge Clinical Impression: Fall Patient Disposition: Left W/O Completing Treatment Prescriptions: No Action (DME) blood sugar diagnostic Strip See Rx Instructions Not Applicable QID Qty: 100 3RF Rx Instructions: As directed check blood sugars q.day Narcan 4 mg/actuation spray,non-aerosol 4 mg intranasal Q3M PRN (Reason: opioid overdose) Qty: 2 0RF Rx Instructions: spray 1 dose into ONE nostril; alternate nostrils w each dose until help arrives rosuvastatin 40 mg tablet 40 mg PO DAILY 30 Days Qty: 30 0RF ezetimibe [Zetia] 10 mg tablet 10 mg PO DAILY 30 Days Qty: 90 10RF (DME) Dexcom G7 Acquisition Professional Misc See Rx Instructions .Route Qty: 1 0RF Rx Instructions: As directed nicotine 21 mg/24 hr patch 24 hour 1 patch transdermal DAILY Qty: 28 0RF varenicline tartrate [Chantix Starting Month Box] 0.5 mg (11)- 1 mg (42) tablets,dose pack See Rx Instructions PO PER PKG DIR Qty: 53 0RF Rx Instructions: PO PER PKG DIR nitroglycerin 0.4 mg tablet, sublingual 0.4 mg PO .COMPLEX Qty: 25 0RF Rx Instructions: 0.4 mg PO Every 5 minutes x3; alprazolam 2 mg tablet 2 mg PO BID-TID PRN (Reason: anxiety) Qty: 90 0RF Rx Instructions: Bradley Benjamin Q 2 weeks metformin 500 mg tablet extended release 24 hr 1,000 mg PO BID Qty: 120 1RF ondansetron 8 mg tablet,disintegrating 8 mg PO Q8H PRN (Reason: for nausea/vomiting) Qty: 30 0RF oxycodone 15 mg tablet 15 mg PO Q6H PRN (Reason: pain) 2 Days Qty: 8 0RF Rx Instructions: May partial fill (DME) Dexcom G7 Sensor Device See Rx Instructions .Route Qty: 6 3RF Rx Instructions: As directed mupirocin 2 % ointment 1 appl topical 3XW Qty: 22 0RF Rx Instructions: administer after dialysis on dialysis days Jardiance 25 mg tablet 25 mg PO QAM atomoxetine 25 mg capsule 25 mg PO QAM (DME) lancets 33 gauge misc See Rx Instructions .ROUTE DAILY Qty: 100 Rx Instructions: As directed (DME) blood-glucose meter Misc See Rx Instructions Not Applicable DAILY Qty: 1 Rx Instructions: As directed atomoxetine 60 mg capsule 60 mg PO QAM (DME) pen needle, diabetic 31 gauge x 3/16 needle See Rx Instructions subcut .MEDSUPPLY Qty: 50 Rx Instructions: As directed mupirocin calcium 2 % cream 1 appl topical BID Qty: 30 0RF psyllium husk [Fiber (psyllium husk)] 0.52 gram capsule 1.04 g PO DAILY Qty: 60 4RF metoprolol succinate [Toprol XL] 50 mg tablet extended release 24 hr 50 mg PO DAILY Qty: 30 5RF polyethylene glycol 3350 [Miralax] 17 gram/dose powder 17 g PO DAILY 90 Days Qty: 238 3RF Benefiber Healthy Shape 5 gram/7.4 gram powder 5 g PO DAILY 90 Days Qty: 500 2RF albuterol sulfate [Ventolin HFA] 90 mcg/actuation HFA aerosol inhaler 2 puff inhalation Q6H PRN (Reason: shortness of breath or wheezing) Qty: 8.5 0RF (DME) FreeStyle Mich 2 [place] Misc See Rx Instructions .ROUTE .MEDSUPPLY Qty: 1 0RF Rx Instructions: As directed trazodone 50 mg tablet 50 mg PO BEDTIME PRN (Reason: sleep) Qty: 30 2RF diphenoxylate-atropine 2.5-0.025 mg tablet PO BID hydroxyzine HCl 50 mg tablet PO BEDTIME omeprazole 40 mg capsule,delayed release(DR/EC) 40 mg PO DAILY (DME) FreeStyle Mich 2 Sensor Kit See Rx Instructions .ROUTE .MEDSUPPLY Qty: 6 3RF Rx Instructions: As directed Trelegy Ellipta 200-62.5-25 mcg blister with device 1 inh inhalation DAILY Qty: 60 5RF ipratropium-albuterol 0.5 mg-3 mg(2.5 mg base)/3 mL solution for nebulization 3 ml inhalation Q4-6H PRN (Reason: COPD wheezing) 30 Days Qty: 180 2RF cefuroxime axetil 250 mg tablet 250 mg PO BID 7 Days Qty: 14 0RF Discharge Date/Time: 07/08/25 18:50
--- NOTE | 2025-07-08 15:32 | ECG_ITS ---
Test Reason : weakness Blood Pressure : */* mmHG Vent. Rate : 85 BPM Atrial Rate : 85 BPM P-R Int : 152 ms QRS Dur : 86 ms QT Int : 386 ms P-R-T Axes : 71 6 32 degrees QTcB Int : 459 ms Sinus rhythm with Premature supraventricular complexes Nonspecific ST and T wave abnormality Abnormal ECG When compared with ECG of 05-Jul-2025 00:06, Premature supraventricular complexes are now Present Referred By: Ludwin Diaz Electronically Signed By: LESLIE HOWELL MD
[2025-07-08 16:11] LABS: MANUAL DIFF FLAG NO
[2025-07-08 16:12] LABS: Hematocrit 40.6 % (37.0-47.0); Hemoglobin 13.2 g/dl (12.0-16.0); Imm Gran Abs Auto 0.04 X10*3/uL (0.00-0.03); Imm Gran Pct Auto 0.4 % (0.0-0.4); Lymphocytes Absolute Auto 3.2 X10*3/uL (1.2-4.9); Mean Corpuscular HGB Conc 32.5 g/dl (31.0-35.0); Mean Corpuscular Hemoglobin 28.6 pg (27.0-33.0); Mean Corpuscular Volume 87.9 fL (80.0-98.0); NRBC Abs Auto 0.000 X10*3/uL (0.0-0.012); NRBC Pct Auto 0.0 /100WBC (0.0-0.2); Platelet Count 337 X10*3/uL (160-400); Red Blood Count 4.62 X10*6/uL (4.20-5.50); White Blood Count 10.2 X10*3/uL (4.8-10.8)
[2025-07-08 16:27] LABS: Alanine Aminotransferase 16 U/L (0-31); Albumin Level 3.6 g/dL (3.5-5.0); Alkaline Phosphatase 59 U/L (39-117); Anion Gap 13 (12-20); Aspartate Amino Transferase 29 U/L (5-31); Blood Urea Nitrogen 12 mg/dL (9-16); Calcium 8.7 mg/dL (8.4-10.2); Carbon Dioxide 19 mmol/L (22-29); Chloride 108 mmol/L (96-108); Creatinine Clr Calc Pharmacy 47.1; Estimated Glomerular Filt Rate 54; Lipase 47 U/L (8-78); Potassium 4.1 mmol/L (3.3-5.1); Sodium 136 mmol/L (135-145); Total Protein 6.3 g/dL (6.5-8.0)
--- NOTE | 2025-07-08 18:17 | PC.NURSE ---
patient came to triage asking for her bed- stated she can knock on the door to have somebody let her in to lay down. this nurse explained to her and her partner that there presently wasnt a bed available for her which is why she is waiting in the WR. Pt stated this is ridiculous, I am not waiting I am going home
--- OUTSIDE RECORDS SUMMARY | 2025-07-08 18:33 | XMS_ITS | Clinical Summary ---
Author Organization [facility] [address] [facility] Address [address] [place] [address] Phone Care Team Providers Care Asphalt Plant Operator Name Role Phone Diandra Grady MD Primary Care Provider [phone] Allergies No known active allergies Medications Trulicity [...] needed for flatulence. 120 capsule 5 Active cefuroxime (CEFTIN) 250 mg tablet Take 1 tablet (250 mg total) by mouth 2 (two) times a day for 10 days. 20 each 5 07/18/19 26 Active Active Problems Problem Noted Date Diagnosed Date Primary osteoarthritis 05/23/2024 Other hyperlipidemia 05/23/2024 Coronary artery disease with angina pectoris 05/2024 ADD (attention deficit disorder) 05/23/2024 Type 2 diabetes mellitus 05/23/2024 Neuropathy associated with endocrine disorder Bilateral carotid artery stenosis 05/23/2024 Primary hypertension 05/23/2024 Anxiety 05/23/2024 Depression 05/23/2024 Chronic low back pain 05/23/2024 Encounters Date Type Department Care Team Description 07/08/2025 12:33 AM EST - 07/08/2025 7:30 AM EST Emergency [facility] Emergency [address] [place] [phone] Spencer Cotton MD Lower urinary tract infectious disease (Primary Dx) Discharge Disposition: Home or Self Care 06/05/2025 Telephone Gastroenterology - [place] 175 [facility] 175 [facility] [address] [place] [phone] Nurys Martinez NP from Last 3 Months Surgical History Surgery Date Site/Laterality Comments TOE AMPUTATION CAROTID ENDARTERECTOMY COLONOSCOPY 07/01/2016 nl, tics, hemorrhoids ESOPHAGOGASTRODUODENOSCOPY 07/01/2016 nl CHOLECYSTECTOMY Medical History Medical History Date Comments GERD (gastroesophageal reflux disease) Irritable bowel syndrome with diarrhea HTN (hypertension) Diabetes ([facility] V24, [facility] V28) Hyperlipidemia Chronic back pain PVD (peripheral vascular disease) ([facility] V24) Family History Medical History Relation Name [...] EST Inhaled Oxygen Concentration - - Weight 57.6 kg (127 lb) 11/09/2024 2:47 PM EDT Height 167.6 cm (5' 6 ) 11/09/2024 2:47 PM EDT Body Mass Index 20.5 11/09/2024 2:47 PM EDT Plan of Treatment Upcoming Encounters Date Type Department Care Team (Late st Contact Info) Description 01/02/2026 3:20 PM EDT Office Visit Gastroenterology - [address] [facility] [address] [place] [phone] Nurys Martinez NP 299 [facility] [address] [place] [address] Health Maintenance Due Date Last Done Comments Breast Cancer Screening 1955 Drug Screen 1955 Non-Opioid Controlled Substance Agreement 1955 Diabetes: Annual Foot Exam 1963 Diabetes: Annual Retina Eye Exam 1963 Zoster Vaccines (2 of 2) 05/14/2018 03/19/2018 Cholesterol Screening (Lipid Panel) 06/11/2022 Falls Risk Assessment 06/11/2022 Hepatitis C Screening 06/11/2022 Medicare Annual Wellness Visit 06/11/2022 Osteoporosis Screening (Bone Density Screening) 06/11/2022 Social Influencers of Health Screening 06/11/2022 Diabetes: Annual Urine Albumin-Creatinine Ratio (uACR) 05/23/2024 Diabetes: Blood Sugar Control Test (HGBA1C) 05/23/2024 Depression Screening 07/13/2024 COVID-19 Vaccine ( season) 2025 03/04/2025, 2024, 06/11/2022, Additional history exists Colorectal Cancer Screening: Colonoscopy 07/01/2026 07/01/2016 Diabetes: Annual GFR (Glomerular Filtration Rate) 07/08/2026 07/08/2025, 08/25/2024 Hypertension/CHF/CAD Annual BMP Blood Test 07/08/2026 07/08/2025, 08/25/2024 DTaP,Tdap,and Td Vaccines (2 - Td or Tdap) 11/16/2028 11/16/2018 MMR Vaccines Aged Out 11/16/2018 No longer eligi ble based on patient's age to complete this topic Pneumococcal Vaccine: 50+ Years Completed 02/03/2023, 07/01/2019, 02/15/2018, Additional history exists RSV Immunization Adult Patients Completed 04/18/2025 Influenza Vaccine Completed 05/19/2025, , 2024, Additional history exists HIB Vaccines Aged Out [...] AND DIFFERENTIAL STAT 07/08/2025 1:03 AM EST COMPREHENSIVE METABOLIC PANEL STAT 07/08/2025 1:03 AM EST LACTATE STAT 07/08/2025 1:03 AM EST COLONOSCOPY Routine 07/01/2016 9:36 AM EST from Last 3 Months or Most Recently Relevant to Health Maintenance Results * CT Abdomen Pelvis wo Contrast [...] reflex microscopic (07/08/2025 1:43 AM EST) Specific [place] Urine 1.014 1.003 - 1.030 LAB URINALYSIS [...] Spencer Cotton MD LAB URINE ORDERABLES Carolyn zachary Result [facility] [address] [place] [address], [place] [phone] * (ABNORMAL) CBC auto differential (07/08/2025 1:03 [...] AM [facility] Monocytes Absolute 0.68 0.20 - 1.00 K/mcL LAB HEMETOLOGY METHOD 07/08/2025 1:31 AM [facility] Eosinophils Absolute 0.02 0.00 - 0.50 K/mcL LAB HEMETOLOGY METHOD 07/08/2025 1:31 AM [facility] Basophils Absolute 0.03 0.00 - 0.20 K/mcL LAB HEMETOLOGY METHOD 07/08/2025 1:31 AM [facility] Immature Granulocytes Absolute 0.08(H) 0.00 - 0.03 K/mcL LAB HEMETOLOGY METHOD 07/08/2025 1:31 AM [facility] Blood Venous blood specimen / Unknown Venipuncture / Unknown 07/08/2025 1:03 AM EST 07/08/2025 1:23 AM EST Spencer Cotton MD LAB BLOOD ORDERABLES Carolyn l Result [facility] [address] [place] [address], [place] [phone] * Lactate (07/08/2025 1:03 AM EST) Lactate 1.3 0.4 - 2.0 mmol/L 07/08/2025 1:49 AM [facility] Blood Venous blood specimen / Unknown Venipuncture / Unknown 07/08/2025 1:03 AM EST 07/08/2025 1:24 AM EST Spencer Cotton MD LAB BLOOD ORDERABLES Carolyn l Result Performing Organization Address [facility]/ZIP Co de Phone Number [facility] [address] [place] [address], [place] [phone] * (ABNORMAL) Comprehensive Metabolic Panel (CMP) (07/08/2025 1:03 AM EST) Pathologist [facility] Sodium 133 133 - 145 mmol/L 07/08/2025 2:26 AM [facility] Potassium 4.3 3.5 - 5.5 mmol/L 07/08/2025 2:26 AM [facility] Chloride 103 96 - 110 mmol/L 07/08/2025 2:26 AM [facility] CO2 20(L) 21 - 32 mmol/L 07/08/2025 2:26 AM [facility] Anion Gap [...] MD LAB BLOOD ORDERABLES Carolyn l Result [facility] [address] [place] [address], * COLONOSCOPY (07/01/2016 9:36 AM EST) Anatomical Region Laterality Modality Endoscopy us Historical Provider GI~PROCEDURE ORDERABLES F inal Result from Last 3 Months or Most Recently Relevant to Health Maintenance Insurance [employer] MEDICARE ADVANTAGE Care Teams Asphalt Plant Operator Relationship Specialty Start Date End Date Diandra Grady MD [address] [place] [address] Dr [address] [facility] [place] [address] PCP - General Internal Medicine 07/15/21
--- OUTSIDE RECORDS SUMMARY | 2025-07-08 18:33 | XMS_ITS | Clinical Summary ---
Author Organization [facility] Address [address] [address] Phone Care Team Providers Care Human Resources Services Specialist Name Role Phone Unavailable Primary Care Provider [...] Insurance Medicaid [place] Aetna MCR Adv PPO ([id number])
--- OUTSIDE RECORDS SUMMARY | 2025-07-08 18:33 | XMS_ITS | Patient Health Record ---
Author Organization [facility] Address [address] [facility] [place] [address] Care Team Providers Care Scale And Skip Car Operator Name Role Phone Diandra Grady Primary Care Provider Unavailabl e Black, Camryn Unavailable [phone] Reason For Referral No Information Medications Medication [...] Problem Acquired hammer toe of right foot (6867399602761734 ) Other hammer toe(s) (acquired), right foot (M20.41) Active confirmed Problem Acquired hammer toe of left foot (3030175078187015 ) Other hammer toe(s) (acquired), left foot (M20.42) Active confirmed Problem Polyneuropathy due to type 2 diabetes mellitus (686030978) Type 2 diabetes mellitus with diabetic polyneuropathy (E11.42) Active confirmed Encounters Encounter Location Date Provider Diagnosis [facility] [address] 09/06/2024 [facility] [address] [address] 10/27/2024 Camryn Lazaro [facility] [address] [address] 02/14/2025 Camryn Lazaro [facility] [address] 03/01/2025 Camryn Lazaro Plan Of Treatment Pending Test Test Name Order Date [id number] NAIL, 6 OR MORE 10/09/2015 [id number] NAIL, 6 OR MORE 11/01/2015 10514-[id number] NAIL, 6 OR MORE 01/02/2017 [id number] NAIL, 6 OR MORE 08/10/2017 [id number]-NGPFDAP NAIL, 1-5 12/25/2015 34307-[id number] NAIL, 1-5 01/09/2016 08808- Debride <25 sq cm 10/09/2015 [id number] SKIN/TISSUE 01/09/2016 43199-AWIWTYF SKIN/TISSUE 11/01/2015 87297-[id number] SKIN/TISSUE 11/29/2015 72937-ALBBQQG SKIN/TISSUE 12/25/2015 22383-VEEP SKIN LESIONS, OVER 4 01/03/20 17 64512-CORY SKIN LESIONS, OVER 4 08/10/19 18 34317-DGWB SKIN LESIONS, 2 TO 4 10/09/19 16 Insurance Providers Payer Name Payer Address Payer Phone Subscriber Number Group Number Insured Name Patient Relationship to Insured Coverage Start Date Coverage End Date AARP Medicare Complete [address] [address] [place] [address] [phone] [id number] Lena Bill Self - patient is the insured Medical (General) History Medical History History ICD Code Anxiety Arthritis Cataracts Depression type II diabetes Neuropathy High blood pressure Headaches Psychiatric disorder Back,Hip,and Knee pain Reflux Measles Mumps Chicken pox Surgical History Surgery Date(Month/Year) Stent at [facility] 11-23-2015 Hospitalization History Reason Date(Month/Year) [facility] - stent iliac artery & amputati on of toe 12/2015 [facility] Left Carotid artery 07/21/17
--- OUTSIDE RECORDS SUMMARY | 2025-07-08 18:33 | XMS_ITS | Clinical Summary ---
Author Organization [facility] Address [address] [facility] [address] [place] [address] Phone Care Team Providers Care Dramatic Agent Name Role Phone Unavailable Primary Care Provider [...] It is not the complete legal health record.[facility]
--- OUTSIDE RECORDS SUMMARY | 2025-07-08 18:33 | XMS_ITS | Encounter Summary ---
Author Organization [facility] Address [address] [place] [address] Care Team Providers Care Dry Cans Back Tender Name Role Phone Diandra Grady MD Primary Care Provider [phone] Reason for Visit * Reason Onset Date Comments Appointment 06/05/2025 Encounter Details Date Type Department Care Team (Late st Contact Info) Description 06/05/2025 Telephone Gastroenterology - [place] 175 [facility] 175 [facility] [address] [place] [address] Nurys Martinez, PAWAN 299 [facility] [address] [place] [address] Social History Tobacco Use Types Packs/Day Years [...] 06/05/2025 10:51 AM EST Received records from [facility] for incontinence of feces. Referral scanned into [...] Office Visit Gastroenterology - [address] [address] Nurys Martinez, PAWAN [address] [address] documented as of this encounter Visit Diagnoses Not on filedocumented in this encounter Care Teams Dry Cans Back Tender Relationship Specialty Start Date End Date Diandra Grady MD [address] [place] [address] [address] [facility] [place] [address] PCP - General Internal Medicine 07/15/21 documented as of this encounter
== END 2025-07-08 18:50 | disposition left against medical advice (07) ==
PROVIDERS: Physician Assistant; Emergency Provider Emergency Medicine; PCP Internal Medicine
DX: R56.9 Unspecified convulsions (principal); Z91.81 History of falling; E11.9 Type 2 diabetes mellitus without complications; I10 Essential (primary) hypertension; E78.00 Pure hypercholesterolemia, unspecified; J44.9 Chronic obstructive pulmonary disease, unspecified; F17.210 Nicotine dependence, cigarettes, uncomplicated; F11.90 Opioid use, unspecified, uncomplicated; Z79.899 Other long term (current) drug therapy
CPT/HCPCS: 36415; 80053; 80307; 82550; 83690; 85025; 93005; 99283

== ENCOUNTER → 2025-07-08 15:32 | Outpatient (BNV) | payer MEDICARE, MEDICAID, SELFPAY | PROVIDERS: Emergency Provider Emergency Medicine; PCP Internal Medicine; Visit Provider Internal Medicine Cardiovascular Disease | DX: I49.3 Ventricular premature depolarization (principal) | CPT/HCPCS: 93010 ==

== ENCOUNTER 2025-07-10 15:26 | Outpatient (AMB) | payer MEDICARE, MEDICAID, SELFPAY ==
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
[2025-07-10 15:37] VITALS: BP 100/48; PULSE 87; RESP 18; TEMP 36.9; O2SAT 97; BMI 19.9
--- OUTSIDE RECORDS SUMMARY | 2025-07-10 17:32 | XMS_ITS | Clinical Summary ---
Author Organization [facility] Address [address] [address] Phone Care Team Providers Care Director Of Athletics Name Role Phone Unavailable Primary Care Provider [...] Insurance Medicaid [place] Aetna MCR Adv PPO ([id number])
--- OUTSIDE RECORDS SUMMARY | 2025-07-10 17:33 | XMS_ITS | Encounter Summary ---
Author Organization [facility] Address [address] [place] [address] Care Team Providers Care Mechanical Development Engineer Name Role Phone Diandra Grady MD Primary Care Provider [phone] Reason for Visit * Reason Onset Date Comments Appointment 06/05/2025 Encounter Details Date Type Department Care Team (Late st Contact Info) Description 06/05/2025 Telephone Gastroenterology - [place] 175 [facility] 175 [facility] 200 [place] [address] Nurys Martinez, PAWAN 299 [facility] [address] [place] [address] Social History Tobacco Use Types Packs/Day Years [...] 06/05/2025 10:51 AM EST [place] [facility] [place]. Referral [...] Office Visit Gastroenterology - [address] [address] Nurys Martinez, PAWAN [address] [address] documented as of this encounter Visit Diagnoses Not on filedocumented in this encounter Care Teams Mechanical Development Engineer Relationship Specialty Start Date End Date Diandra Grady MD [address] [place] [address] [address] [facility] [place] [address] PCP - General Internal Medicine 07/15/21 documented as of this encounter
--- OUTSIDE RECORDS SUMMARY | 2025-07-10 17:33 | XMS_ITS | Clinical Summary ---
Author Organization [facility] Address [address] [facility] [address] [place] [address] Phone Care Team Providers Care Truck Washer Name Role Phone Unavailable Primary Care Provider [...] not the complete legal health record.[facility]
--- OUTSIDE RECORDS SUMMARY | 2025-07-10 17:33 | XMS_ITS | Patient Health Record ---
Author Organization [facility] Address [address] [facility] [place]I Stearns [address] Care Team Providers Care Sheriff Detective Name Role Phone Diandra Grady Primary Care Provider Unavailabl e Black, Camryn Unavailable [phone] Reason For Referral No Information Medications Medication [...] Problem Acquired hammer toe of right foot (8775952755960151 ) Other hammer toe(s) (acquired), right foot (M20.41) Active confirmed Problem Acquired hammer toe of left foot (9790344652474981 ) Other hammer toe(s) (acquired), left foot (M20.42) Active confirmed Problem Polyneuropathy due to type 2 diabetes mellitus (470672683) Type 2 diabetes mellitus with diabetic polyneuropathy (E11.42) Active confirmed Encounters Encounter Location Date Provider Diagnosis [facility] [address] 09/06/2024 Cam[facility]uciano [facility]azaro [facility] [address] [address] 10/27/2024 Camryn Lazaro [facility] [address] [address] 02/14/2025 Camryn Lazaro [facility] [address] 03/01/2025 Camryn Lazaro Plan Of Treatment Pending Test Test Name Order Date [id number] NAIL, 6 OR MORE 10/09/2015 [id number] NAIL, 6 OR MORE 11/01/2015 64001-[id number] NAIL, 6 OR MORE 01/02/2017 [id number] NAIL, 6 OR MORE 08/10/2017 [id number] NAIL, 1-5 12/25/2015 [id number] NAIL, 1-5 01/09/2016 55682- Debride <25 sq cm 10/09/2015 02491-IGOTESC SKIN/TISSUE 01/09/2016 69422-LVXGZQG SKIN/TISSUE 11/01/2015 08801-ASREMPD SKIN/TISSUE 11/29/2015 07042-SHIZZAE SKIN/TISSUE 12/25/2015 36788-VEKR SKIN LESIONS, OVER 4 01/03/20 17 49870-ALJX SKIN LESIONS, OVER 4 08/10/19 18 24024-HOTU SKIN LESIONS, 2 TO 4 10/09/19 16 Insurance Providers Payer Name Payer Address Payer Phone Subscriber Number Group Number Insured Name Patient Relationship to Insured Coverage Start Date Coverage End Date A[employer] Medicare Complete [address] [address] [place] [address] [id number] Lena Bill Self - patient is the insured Medical (General) History Medical History History ICD Code Anxiety Arthritis Cataracts Depression type II diabetes Neuropathy High blood pressure Headaches Psychiatric disorder Back,Hip,and Knee pain Reflux Measles Mumps Chicken pox Surgical History Surgery Date(Month/Year) Stent at [facility] 11-23-2015 Hospitalization History Reason Date(Month/Year) [facility] - stent iliac artery & amputati on of toe 12/2015 [facility] Left Carotid artery 07/21/17
--- OUTSIDE RECORDS SUMMARY | 2025-07-10 17:33 | XMS_ITS | Clinical Summary ---
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 [address] [place] [phone] Spencer Cotton MD Lower urinary tract infectious disease (Primary Dx) Discharge Disposition: Home or Self Care 06/05/2025 Telephone Gastroenterology - [place] 175 [facility] 175 [facility] [address] [place] [phone] Nurys Martinez NP from Last 3 Months Surgical History Surgery Date Site/Laterality Comments TOE AMPUTATION CAROTID ENDARTERECTOMY COLONOSCOPY 07/01/2016 nl, tics, hemorrhoids ESOPHAGOGASTRODUODENOSCOPY 07/01/2016 nl CHOLECYSTECTOMY Medical History Medical History Date Comments GERD (gastroesophageal reflux disease) Irritable bowel syndrome with diarrhea HTN (hypertension) Diabetes ([facility] V24, [facility] V28) Hyperlipidemia Chronic back pain PVD (peripheral vascular disease) ([facility] V24) Family History Medical History Relation Name [...] Office Visit Gastroenterology - [address] [place] 299 [facility] [address] [place] [phone] Nurys Martinez NP 299 [facility] 419 [place] [address] Health Maintenance Due Date Last Done Comments [...] reflex microscopic (07/08/2025 1:43 AM EST) Specific [place] Urine 1.014 1.003 - 1.030 LAB URINALYSIS - AUTOMATED METHOD 07/08/2025 2:25 AM [facility] pH, Urine 6.0 5.0 - 8.0 pH LAB URINALYSIS - AUTOMATED METHOD 07/08/2025 2:25 AM [facility] Leukocytes, Urine Moderate(A) Negative LAB URINALYSIS - AUTOMATED METHOD 07/08/2025 2:25 AM [facility] Nitrite, Urine Negative Negative LAB URINALYSIS - AUTOMATED METHOD 07/08/2025 2:25 AM [facility] Protein, Urine 30(A) <=Trace mg/dL LAB URINALYSIS - AUTOMATED METHOD 07/08/2025 2:25 AM [facility] Glucose, Urine >=1000(A) Negative mg/dL LAB URINALYSIS - AUTOMATED METHOD 07/08/2025 2:25 AM [facility] Ketones, Urine Negative Negative mg/dL LAB URINALYSIS - AUTOMATED METHOD 07/08/2025 2:25 AM [facility] Urobilinogen , Urine 0.2 0.2 - 1.0 mg/dL LAB URINALYSIS - AUTOMATED METHOD 07/08/2025 2:25 AM [facility] Bilirubin, Urine Negative Negative LAB URINALYSIS - AUTOMATED METHOD 07/08/2025 2:25 AM [facility] Blood, Urine Trace(A) Negative LAB URINALYSIS - AUTOMATED METHOD 07/08/2025 2:25 AM [facility] RBC, Urine 4 0 - 4 /HPF 07/08/2025 2:25 AM [facility] WBC, Urine >100(H) 0 - 4 /HPF 07/08/2025 2:25 AM [facility] Squamous Epithelial, Urine 50 0 - 60 /LPF 07/08/2025 2:25 AM [facility] Bacteria, Urine Moderate(A) Negative /HPF 07/08/2025 2:25 AM [facility] Hyaline Casts, Urine 3 0 - 3 /LPF 07/08/2025 2:25 AM [facility] Urine Urine specimen obtained by clean catch procedure / Unknown Non-blood Collection / Unknown 07/08/2025 1:43 AM EST 07/08/2025 1:58 AM EST us Spencer Cotton MD LAB URINE ORDERABLES Carolyn zachary Result [facility] [address] [place] [address], [place] [phone] * (ABNORMAL) CBC auto differential (07/08/2025 1:03 AM EST) WBC 17.0(H) 4.8 - 10.8 K/mcL LAB HEMETOLOGY METHOD 07/08/2025 1:31 AM [facility] RBC 4.60 3.80 - 4.80 M/mcL LAB HEMETOLOGY METHOD 07/08/2025 1:31 AM [facility] Hemoglobin 12.9 11.5 - 16.0 g/dL LAB HEMETOLOGY METHOD 07/08/2025 1:31 AM [facility] Hematocrit 39.5 35.0 - 47.0 % LAB HEMETOLOGY METHOD 07/08/2025 1:31 AM [facility] MCV 86.4 79.0 - 98.0 FL LAB HEMETOLOGY METHOD 07/08/2025 1:31 AM [facility] MCH 28.2 27.0 - 32.0 pcg LAB HEMETOLOGY METHOD 07/08/2025 1:31 AM [facility] MCHC 32.7 32.0 - 37.0 g/dL LAB HEMETOLOGY METHOD 07/08/2025 1:31 AM [facility] RDW 13.2 11.0 - 15.0 % LAB HEMETOLOGY METHOD 07/08/2025 1:31 AM [facility] Platelets 376 130 - 400 K/mcL LAB HEMETOLOGY METHOD 07/08/2025 1:31 AM [facility] MPV 8.9 7.0 - 11.0 FL LAB HEMETOLOGY METHOD 07/08/2025 1:31 AM [facility] NRBC 0.0 <1.0 % LAB HEMETOLOGY METHOD 07/08/2025 1:31 AM [facility] NRBC Absolute 0.00 <0.10 K/mcL LAB HEMETOLOGY METHOD 07/08/2025 1:31 AM [facility] Neutrophils Relative 80.4 % LAB HEMETOLOGY METHOD 07/08/2025 1:31 AM [facility] Lymphocytes Relative 14.8 % LAB HEMETOLOGY METHOD 07/08/2025 1:31 AM [facility] Monocytes Relative 4.0 % LAB HEMETOLOGY METHOD 07/08/2025 1:31 AM [facility] Eosinophils Relative 0.1 % LAB HEMETOLOGY METHOD 07/08/2025 1:31 AM [facility] Basophils Relative 0.2 % LAB HEMETOLOGY METHOD 07/08/2025 1:31 AM [facility] Immature Granulocytes Relative 0.5 % LAB HEMETOLOGY METHOD 07/08/2025 1:31 AM [facility] Neutrophils Absolute 13.66(H) 1.50 - 7.00 K/mcL LAB HEMETOLOGY METHOD 07/08/2025 1:31 AM [facility] Lymphocytes Absolute 2.51 1.00 - 5.00 K/mcL LAB HEMETOLOGY METHOD 07/08/2025 1:31 AM [facility] Monocytes Absolute 0.68 0.20 - 1.00 K/mcL LAB HEMETOLOGY METHOD 07/08/2025 1:31 AM [facility] Eosinophils Absolute 0.02 0.00 - 0.50 K/mcL LAB HEMETOLOGY METHOD 07/08/2025 1:31 AM [facility] Basophils Absolute 0.03 0.00 - 0.20 K/mcL LAB HEMETOLOGY METHOD 07/08/2025 1:31 AM [facility] Immature Granulocytes Absolute 0.08(H) 0.00 - 0.03 K/mcL LAB HEMETOLOGY METHOD 07/08/2025 1:31 AM [facility] Blood Venous blood specimen / Unknown Venipuncture / Unknown 07/08/2025 1:03 AM EST 07/08/2025 1:23 AM EST Spencer Cotton MD LAB BLOOD ORDERABLES Carolyn l Result [facility] [address] [place] [address], [place] [phone] * Lactate (07/08/2025 1:03 AM EST) Lactate 1.3 0.4 - 2.0 mmol/L 07/08/2025 1:49 AM [facility] Blood Venous blood specimen / Unknown Venipuncture / Unknown 07/08/2025 1:03 AM EST 07/08/2025 1:24 AM EST Spencer Cotton MD LAB BLOOD ORDERABLES Carolyn l Result Performing Organization Address [facility] [address]/ZIP Co de Phone Number [facility] [address] [place] [address], [place] [phone] * (ABNORMAL) Comprehensive Metabolic Panel (CMP) (07/08/2025 1:03 AM EST) Pathologist [facility] Sodium 133 133 - 145 mmol/L 07/08/2025 2:26 AM [facility] Potassium 4.3 3.5 - 5.5 mmol/L 07/08/2025 2:26 AM [facility] Chloride 103 96 - 110 mmol/L 07/08/2025 2:26 AM [facility] CO2 20(L) 21 - 32 mmol/L 07/08/2025 2:26 AM [facility] Anion Gap 10 3 - 11 07/08/2025 2:26 AM [facility] Glucose 150(H) 70 - 100 mg/dL 07/08/2025 2:26 AM [facility] BUN 16 5 - 25 mg/dL 07/08/2025 2:26 AM [facility] Creatinine 1.15(H) 0.50 - 1.10 mg/dL 07/08/2025 2:26 AM [facility] eGFR 51(L) >=60 mL/min/1. 73m2 07/08/2025 2:26 AM [facility] Comment:Calculation based on the Chronic Kidney Disease Epidemiology Collaboration (CKD-EPI) equation refit without adjustment for race. BUN/Creatinine Ratio 13.9 07/08/2025 2:26 AM [facility] Calcium 8.0(L) 8.5 - 10.5 mg/dL 07/08/2025 2:26 AM [facility] AST (SGOT) 27 10 - 42 unit/L 07/08/2025 2:26 AM [facility] ALT (SGPT) 17 10 - 60 unit/L 07/08/2025 2:26 AM [facility] Alkaline Phosphatase 56 42 - 121 unit/L 07/08/2025 2:26 AM [facility] Total Protein 5.5(L) 6.0 - 8.0 g/dL 07/08/2025 2:26 AM [facility] Albumin 3.3 3.2 - 5.0 g/dL 07/08/2025 2:26 AM [facility] Total Bilirubin 0.3 0.0 - 1.4 mg/dL 07/08/2025 2:26 AM [facility] Blood Venous blood specimen / Unknown Venipuncture / Unknown 07/08/2025 1:03 AM EST 07/08/2025 1:23 AM EST us Spencer Cotton MD LAB BLOOD ORDERABLES Carolyn l Result [facility] [address] [place] [address], * COLONOSCOPY (07/01/2016 9:36 AM EST) Anatomical Region Laterality Modality Endoscopy us Historical Provider GI~PROCEDURE ORDERABLES F inal Result from Last 3 Months or Most Recently Relevant to Health Maintenance Insurance [employer] MEDICARE ADVANTAGE Care Teams Flange Machine Operator Relationship Specialty Start Date End Date Diandra Grady MD [address] [place] [address] Dr [address] [facility] [place] [address] PCP - General Internal Medicine 07/15/21
== END 2025-07-10 16:25 | disposition home or self-care (01) ==
LOC: HO.HMCH 15:27
PROVIDERS: PCP Internal Medicine
DX: F11.90 Opioid use, unspecified, uncomplicated (principal); N10 Acute pyelonephritis

== ENCOUNTER → 2025-07-10 15:26 | Outpatient (BNVA) | payer MEDICARE, MEDICAID, SELFPAY | PROVIDERS: PCP Internal Medicine | DX: N10 Acute pyelonephritis (principal); F11.90 Opioid use, unspecified, uncomplicated; Z79.2 Long term (current) use of antibiotics; S32.020S Wedge compression fracture of second lumbar vertebra, sequela | CPT/HCPCS: 99212 ==